=== PATIENT | male | born 1965 | race Two or more races ===

== ENCOUNTER 2020-04-10 13:24 | Outpatient (REF) | payer MEDICARE, MEDICAID, SELFPAY ==
--- NOTE | 2020-04-10 | US_ITS ---
EXAMINATION: US SOFT TISSUE OF THE NECK CLINICAL INFORMATION: Bilateral submandibular swelling. COMPARISON: Ultrasound soft tissue head/neck thyroid dated 12/10/2018. TECHNIQUE: Linear transducer grayscale and color Doppler examination of the bilateral parotid areas and areas of swelling. FINDINGS: Both parotid glands appear slightly enlarged. The right parotid gland measures 6.1 x 6.9 x 3.5 cm and the left parotid gland measures 6.7 x 6.5 x 3.4 cm, volume 77 mL. The parotid glands are normal in echotexture. No focal lesion is seen. No stone or periparotid fluid collection is seen. There are no enlarged adjacent periparotid lymph nodes. US/US soft tiss head and/or neck IMPRESSION: Enlarged bilateral parotid glands. No focal lesion is seen.
== END 2020-04-10 13:25 | disposition home or self-care (01) ==
LOC: HO.US 13:24
PROVIDERS: PCP Student in an Organized Health Care Education/Training Program; Visit Provider Nurse Practitioner Primary Care
DX: R59.0 Localized enlarged lymph nodes (principal); R60.9 Edema, unspecified
CPT/HCPCS: 76536

== ENCOUNTER 2020-11-14 14:15 | Emergency (ER) | payer MEDICARE, MEDICAID, SELFPAY ==
--- NOTE | 2020-11-14 | ECG_ITS ---
Test Reason : CHEST PAIN Blood Pressure : / mmHG Vent. 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
--- NOTE | ~2020-11-14 | XR_ITS ---
EXAMINATION: XR CHEST CLINICAL INFORMATION: Chest pain COMPARISON: November 30, 2018 TECHNIQUE: 2 views of the chest were obtained. FINDINGS: There is no evidence of acute parenchymal disease, pneumothorax, or pleural effusion. Heart normal size. No evidence of pulmonary edema. Aortic arch and descending thoracic aortic stent graft in place. XR/XR chest 2V IMPRESSION: No acute disease.
[2020-11-14 14:56] VITALS: BP 135/86; PULSE 69; RESP 18; TEMP 36.2; O2SAT 98; BMI 39.1
[2020-11-14 15:23] LABS: MANUAL DIFF FLAG NO
[2020-11-14 15:27] LABS: Basophils Percent Auto 0.1 % (0-2); Eosinophils Absolute Auto 0.1 X10*3/uL (0.0-0.4); Eosinophils Percent Auto 1.1 % (0-4); Hematocrit 43.8 % (42-52); Hemoglobin 14.7 g/dl (14.0-18.0); Imm Gran Abs Auto 0.05 X10*3/uL (0.00-0.03); Imm Gran Pct Auto 0.7 % (0.0-0.4); Lymphocytes Absolute Auto 1.8 X10*3/uL (1.2-4.9); Mean Corpuscular HGB Conc 33.6 g/dl (31.0-36.0); Mean Corpuscular Hemoglobin 29.5 pg (27.0-33.0); Monocytes Absolute Auto 0.5 X10*3/uL (0.1-1.2); Monocytes Percent Auto 6.5 % (2-11); Neutrophils Absolute Auto 4.7 X10*3/uL (2.0-8.3); Neutrophils Percent Auto 66.6 % (45-73); Platelet Count 178 X10*3/uL (160-400); Red Blood Count 4.98 X10*6/uL (4.60-5.80); Red Cell Distribution Width 12.7 % (11.0-16.0)
[2020-11-14 15:53] LABS: Anion Gap 11 (12-20); Blood Urea Nitrogen 11 mg/dL (9-16); Carbon Dioxide 27 mmol/L (22-29); Chloride 108 mmol/L (96-108); Creatinine Clr Calc Pharmacy 111.7; Estimated Glomerular Filt Rate > 60; Glucose Random 148 mg/dL (60-115); Potassium 4.4 mmol/L (3.3-5.1); Sodium 142 mmol/L (135-145)
[2020-11-14 16:01] LABS: Troponin-I High Sensitivity 9.9 ng/L (<3.5-35.0)
[2020-11-14] MEDS: Acetaminophen 325 MG TABLET 650 MG PO (17:31)
== END 2020-11-14 19:30 | disposition left against medical advice (07) ==
PROVIDERS: Emergency Provider Emergency Medicine; PCP Student in an Organized Health Care Education/Training Program
DX: R07.9 Chest pain, unspecified (principal)
CPT/HCPCS: 36415; 71046; 80048; 84484; 85025; 93005; 99283

== ENCOUNTER 2020-12-13 15:03 | Emergency (ER) | payer MEDICARE, MEDICAID, SELFPAY ==
--- NOTE | 2020-12-13 15:06 | ECG_ITS ---
Test Reason : CHEST PAIN Blood Pressure : / mmHG Vent. 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
[2020-12-13 15:12] VITALS: BP 138/91; PULSE 91; RESP 18; O2SAT 96; BMI 39.1
--- NOTE | 2020-12-13 16:07 | ED_ITS ---
HPI - Chest Pain General Chief Complaint: Chest Pain Stated Complaint: CHEST PAIN Time Seen by Provider: 12/13/20 16:07 Source: patient Mode of arrival: ambulatory Limitations: no limitations History of Present Illness HPI narrative: Patient history of coarctation of her status post surgical repair last stent placement was 1 and half year ago at that time cardiac catheterization was negative. Today patient was opening the gas tank at 14:00 smelled of gas suddenly noticed sharp pain in mid chest which lasted for 3 minutes no shortness of breath no cough no radiation of pain pain was sharp no diaphoresis no nausea no vomiting Related Data Allergies Allergy/AdvReac Type Severity Reaction Status Date / Time Penicillins Allergy Mild RASH Unverified 12/23/19 16:21 lisinopril Allergy Unknown Verified 10/07/18 00:00 penicillin V Allergy Unknown Verified 10/07/18 00:00 Review of Systems Review of Systems: Yes all other systems are reviewed and are negative [facility] Past Medical History Medical History Asthma Coarctation of aorta Diabetes HTN (hypertension) Surgical History Status post aortic coarctation stent placement Social History Social History Advance Directives: No Advance Directives Information Provided: No Physical Exam Vital Signs: Vital Signs: Last Vital Signs Temp 98.5 F 12/13/20 16:17 Pulse 70 12/13/20 17:09 Resp 16 12/13/20 17:09 BP 135/71 12/13/20 17:09 Pulse Ox 99 12/13/20 17:09 Body Mass Index 39.1 Appearance: Alert. Oriented X3. No acute distress. Eyes: No pallor or icterus ENT: Pharynx normal. Oral Mucosa moist Neck: Normal inspection. Neck supple. CVS: Normal heart rate and rhythm. Pulses normal. Respiratory: No respiratory distress. Equal air entry bilateral, no wheezing/rales/rhonchi Abdomen: Soft and nontender. Bowel sounds are present, no mass palpable, no CVA tenderness Skin: Skin warm and dry. Normal skin color. Normal skin turgor. Extremities: No lower extremity edema. No calf tenderness Neuro: Oriented X 3. MDM - Chest Pain MDM Narrative Medical decision making narrative: Patient has atypical chest pain 2 sets of cardiac enzymes negative for in delta change chest pain-free at this time had cardiac catheterization about 18 months ago was negative on baby aspirin advised patient to follow-up with PCP for further evaluation Lab Data Attestation: I reviewed the patient's lab results. Result diagrams: 12/13/20 16:28 12/13/20 16:28 Labs: Lab Results 12/13/20 12/13/20 12/13/20 Range/Units 16:28 16:28 16:28 WBC 9.4 (4.8-10.8) X10*3/uL RBC 5.47 (4.60-5.80) X10*6/uL Hgb 16.1 (14.0-18.0) g/dl Hct 48.4 (42-52) % MCV 88.5 (80-98) fL MCH 29.4 (27.0-33.0) pg MCHC 33.3 (31.0-36.0) g/dl RDW 12.8 (11.0-16.0) % Plt Count 226 D (160-400) X10*3/uL MPV 10.8 (9.4-12.4) fL Immature Gran % (Auto) 0.6 H (0.0-0.4) % Neut % (Auto) 66.5 (45-73) % Lymph % (Auto) 24.5 (20-40) % [place] % (Auto) 7.2 (2-11) % Eos % (Auto) 1.0 (0-4) % Baso % (Auto) 0.2 (0-2) % Lymph # (Auto) 2.3 (1.2-4.9) X10*3/uL [place] # (Auto) 0.7 (0.1-1.2) X10*3/uL Eos # (Auto) 0.1 (0.0-0.4) X10*3/uL Baso # (Auto) 0.0 (0.0-0.2) X10*3/uL Abs Immat Gran (auto) 0.06 H (0.00-0.03) X10*3/uL Absolute Neuts (auto) 6.2 (2.0-8.3) X10*3/uL Absolute Nucleated RBC 0.000 (0.0-0.012) X10*3/uL Nucleated RBC % (auto) 0.0 (0.0-0.2) /100WBC PT 10.4 (9.9-13.0) SEC INR 0.9 (0.9-1.1) Sodium 141 (135-145) mmol/L Potassium 4.2 (3.3-5.1) mmol/L Chloride 102 (96-108) mmol/L Carbon Dioxide 27 (22-29) mmol/L Anion Gap 16 (12-20) BUN 14 (9-16) mg/dL Creatinine 0.91 (0.5-1.4) mg/dL Estim Creat Clear Calc 101.9 Estimated GFR > 60 Random Glucose 119 H (60-115) mg/dL Calcium 9.9 (8.4-10.2) mg/dL Troponin I High Sens (<3.5-35.0) ng/L 12/13/20 12/13/20 Range/Units 16:28 18:59 WBC (4.8-10.8) X10*3/uL RBC (4.60-5.80) X10*6/uL Hgb (14.0-18.0) g/dl Hct (42-52) % MCV (80-98) fL MCH (27.0-33.0) pg MCHC (31.0-36.0) g/dl RDW (11.0-16.0) % Plt Count (160-400) X10*3/uL MPV (9.4-12.4) fL Immature Gran % (Auto) (0.0-0.4) % Neut % (Auto) (45-73) % Lymph % (Auto) (20-40) % [place] % (Auto) (2-11) % Eos % (Auto) (0-4) % Baso % (Auto) (0-2) % Lymph # (Auto) (1.2-4.9) X10*3/uL [place] # (Auto) (0.1-1.2) X10*3/uL Eos # (Auto) (0.0-0.4) X10*3/uL Baso # (Auto) (0.0-0.2) X10*3/uL Abs Immat Gran (auto) (0.00-0.03) X10*3/uL Absolute Neuts (auto) (2.0-8.3) X10*3/uL Absolute Nucleated RBC (0.0-0.012) X10*3/uL Nucleated RBC % (auto) (0.0-0.2) /100WBC PT (9.9-13.0) SEC INR (0.9-1.1) Sodium (135-145) mmol/L Potassium (3.3-5.1) mmol/L Chloride (96-108) mmol/L Carbon Dioxide (22-29) mmol/L Anion Gap (12-20) BUN (9-16) mg/dL Creatinine (0.5-1.4) mg/dL Estim Creat Clear Calc Estimated GFR Random Glucose (60-115) mg/dL Calcium (8.4-10.2) mg/dL Troponin I High Sens 10.4 4.7 D (<3.5-35.0) ng/L ECG Data ECG #1: Attestation: I personally reviewed and interpreted this ECG as follows: Interpretation: Numbness sinus rhythm heart rate 89 beats per minute left anterior fascicular block normal intervals normal axis no acute ST T wave changes no acute ischemia Discharge Plan Discharge Clinical Impression: Chest pain Qualifiers: Chest pain type: precordial pain Qualified Code(s): R07.2 - Precordial pain Patient Disposition: Home, Self-Care Instructions: Chest Pain (ED) Additional Instructions: Follow-up with your PCP for further evaluation including stress test Take baby aspirin daily
[2020-12-13 16:17] VITALS: BP 120/79; PULSE 83; RESP 17; TEMP 36.9; O2SAT 97
[2020-12-13 16:35] LABS: MANUAL DIFF FLAG NO
[2020-12-13 16:37] LABS: Basophils Percent Auto 0.2 % (0-2); Eosinophils Absolute Auto 0.1 X10*3/uL (0.0-0.4); Hematocrit 48.4 % (42-52); Hemoglobin 16.1 g/dl (14.0-18.0); Imm Gran Abs Auto 0.06 X10*3/uL (0.00-0.03); Imm Gran Pct Auto 0.6 % (0.0-0.4); Lymphocytes Absolute Auto 2.3 X10*3/uL (1.2-4.9); Lymphocytes Percent Auto 24.5 % (20-40); Mean Corpuscular HGB Conc 33.3 g/dl (31.0-36.0); Mean Corpuscular Hemoglobin 29.4 pg (27.0-33.0); Mean Corpuscular Volume 88.5 fL (80-98); Mean Platelet Volume 10.8 fL (9.4-12.4); Monocytes Absolute Auto 0.7 X10*3/uL (0.1-1.2); Monocytes Percent Auto 7.2 % (2-11); Neutrophils Absolute Auto 6.2 X10*3/uL (2.0-8.3); Neutrophils Percent Auto 66.5 % (45-73); Platelet Count 226 X10*3/uL (160-400); Red Blood Count 5.47 X10*6/uL (4.60-5.80); Red Cell Distribution Width 12.8 % (11.0-16.0); White Blood Count 9.4 X10*3/uL (4.8-10.8)
[2020-12-13 16:42] LABS: INTERNATIONAL NORM RATIO 0.9 (0.9-1.1); Prothrombin Time 10.4 SEC (9.9-13.0)
[2020-12-13 16:49] LABS: Anion Gap 16 (12-20); Blood Urea Nitrogen 14 mg/dL (9-16); Calcium 9.9 mg/dL (8.4-10.2); Carbon Dioxide 27 mmol/L (22-29); Chloride 102 mmol/L (96-108); Creatinine Clr Calc Pharmacy 101.9; Estimated Glomerular Filt Rate > 60; Glucose Random 119 mg/dL (60-115); Potassium 4.2 mmol/L (3.3-5.1); Sodium 141 mmol/L (135-145)
[2020-12-13 16:54] LABS: Troponin-I High Sensitivity 10.4 ng/L (<3.5-35.0)
[2020-12-13 17:09] VITALS: BP 135/71; PULSE 70; RESP 16; O2SAT 99
--- NOTE | 2020-12-13 17:22 | PC.NURSE ---
Patient in NAD, breathing even and unlabored. Denies pain at this time. Pending provider plan.
[2020-12-13 19:28] LABS: Troponin-I High Sensitivity 4.7 ng/L (<3.5-35.0)
== END 2020-12-13 20:03 | disposition home or self-care (01) ==
PROVIDERS: Emergency Provider Internal Medicine; PCP Student in an Organized Health Care Education/Training Program
DX: R07.2 Precordial pain (principal); I10 Essential (primary) hypertension; Z79.899 Other long term (current) drug therapy
CPT/HCPCS: 36415; 80048; 84484; 85025; 85610; 93005; 99283; 99284

== ENCOUNTER 2021-01-30 06:47 | Outpatient (REF) | payer MEDICARE, MEDICAID, SELFPAY ==
[2021-01-30 07:48] LABS: Estimated Average Glucose 192 mg/dL; Hemoglobin A1c % 8.3 %
[2021-01-30 07:51] LABS: Alanine Aminotransferase 76 U/L (0-40); Albumin Level 4.6 g/dL (3.5-5.0); Alkaline Phosphatase 86 U/L (39-117); Anion Gap 13 (12-20); Aspartate Amino Transferase 45 U/L (5-37); Bilirubin Direct 0.4 mg/dL (0.0-0.5); Bilirubin Total 1.1 mg/dL (0.0-1.0); Blood Urea Nitrogen 12 mg/dL (9-16); Calcium 9.8 mg/dL (8.4-10.2); Carbon Dioxide 30 mmol/L (22-29); Chloride 102 mmol/L (96-108); Cholesterol 144 mg/dL; Estimated Glomerular Filt Rate > 60; Glucose Random 178 mg/dL (60-115); HDL Cholesterol 38 mg/dL; LDL Cholesterol Calculated 86 mg/dl; Potassium 4.2 mmol/L (3.3-5.1); Sodium 141 mmol/L (135-145); Total Protein 7.2 g/dL (6.5-8.0); Triglycerides 103 mg/dL
[2021-02-03 16:52] LABS: Testosterone, Free 57.3 pg/mL (35.0-155.0); Testosterone, Total 458 ng/dL (250-1100)
== END 2021-01-30 06:48 | disposition home or self-care (01) ==
LOC: HO.LAB 06:47
PROVIDERS: PCP Student in an Organized Health Care Education/Training Program; Visit Provider Student in an Organized Health Care Education/Training Program
DX: E11.9 Type 2 diabetes mellitus without complications (principal); I10 Essential (primary) hypertension
CPT/HCPCS: 36415; 80048; 80061; 80076; 83036; 84402; 84403

== ENCOUNTER 2021-06-05 08:41 | Outpatient (REF) | payer MEDICARE, MEDICAID, SELFPAY ==
[2021-06-05 10:02] LABS: Anion Gap 13 (12-20); Blood Urea Nitrogen 13 mg/dL (9-16); Calcium 9.9 mg/dL (8.4-10.2); Carbon Dioxide 32 mmol/L (22-29); Chloride 98 mmol/L (96-108); Estimated Glomerular Filt Rate > 60; Glucose Random 343 mg/dL (60-115); Potassium 4.8 mmol/L (3.3-5.1); Sodium 138 mmol/L (135-145)
== END 2021-06-05 08:42 | disposition home or self-care (01) ==
LOC: HO.LAB 08:41
PROVIDERS: PCP Student in an Organized Health Care Education/Training Program; Visit Provider Internal Medicine Cardiovascular Disease
DX: I10 Essential (primary) hypertension (principal); E78.5 Hyperlipidemia, unspecified
CPT/HCPCS: 36415; 80048

== ENCOUNTER 2022-01-25 15:08 | Outpatient (REF) | payer MEDICARE, MEDICAID, SELFPAY ==
[2022-01-25 15:49] LABS: COVID-19 Test Negative (Negative); IDNOW Serial# 16C4AD1C
== END 2022-01-25 15:09 | disposition home or self-care (01) ==
LOC: HO.LAB 15:08
PROVIDERS: Visit Provider Internal Medicine
DX: Z20.822 Contact with and (suspected) exposure to COVID-19 (principal)
CPT/HCPCS: 87635; C9803

== ENCOUNTER 2022-05-15 11:15 | Emergency (ER) | payer MEDICARE, MEDICAID, SELFPAY ==
--- NOTE | ~2022-05-15 | CT_ITS ---
EXAMINATION: CT HEAD WITHOUT CONTRAST CLINICAL INFORMATION: Dizziness, blurred vision for 3 days. COMPARISON: Head CT scan dated 10/01/2019. TECHNIQUE: Contiguous axial imaging was performed from the skull base to vertex without intravenous administration of contrast. Coronal and sagittal reformatted images were obtained. This CT examination was performed using dose optimization techniques as appropriate, variously including the following: *Automated exposure control *Adjustment of mA and/or kV according to patient size (this includes techniques or standardized protocols for targeted exams where dose is matched to indication/reason for exam; i.e. extremities or head) *Use of iterative reconstruction technique DLP: 819 mGy-cm FINDINGS: The cortical sulci are normal. The lateral ventricles are symmetrical. The third and fourth ventricles are in their normal midline position. The basilar and prepontine cisterns are unremarkable. There is no acute intra or extracerebral abnormality. There is no mass effect or midline shift. Sections through the bony calvarium are unremarkable. The paranasal sinuses are clear. The bony orbits and orbital contents are unremarkable. CT/CT head/brain wo IV con IMPRESSION: No acute intracranial pathology.
--- NOTE | 2022-05-15 11:18 | ED_ITS ---
HPI - Dizziness General Chief Complaint: Dizziness <Lillie Corrales NP - Last Filed: 05/15/22 11:23> Stated Complaint: dizzy, headache, tunnel vision <Lillie Corrales NP - Last Filed: 05/15/22 11:23> Time Seen by Provider: 05/15/22 12:37 <Lillie Corrales NP - Last Filed: 05/15/22 11:23> Source: patient <SARA Vidales - Last Filed: 05/15/22 17:55> Mode of arrival: ambulatory <SARA Vidales Last Filed: 05/15/22 17:55> History of Present Illness HPI Narrative: 56-year-old male with a past medical history of asthma, diabetes, hypertension, presenting to the ED complaining of intermittent room spinning dizziness x3 days worsened by head movement and position changes. Reports associated headache and blurry vision when dizziness is present. States worse when turns his head to the left. Admits to similar symptoms in the past. Denies known head trauma, injury/fall, weakness, nausea/vomiting, CP/SOB, paresthesias <SARA Vidales - Last Filed: 05/15/22 17:55> MD elicited complaint: dizziness and vertigo <SARA Vidales Last Filed: 05/15/22 17:55> Onset (ago): day(s) <SARA Vidales Last Filed: 05/15/22 17:55> Related Data Home Medications: Previous Rx's Medication Instructions Recorded meclizine 25 mg tablet 25 mg PO TID PRN dizziness #14 tabs 05/15/22 <Lillie Corrales NP - Last Filed: 05/15/22 11:23> Allergies/Adverse Reactions: Allergies Allergy/AdvReac Type Severity Reaction Status Date / Time Penicillins Allergy Mild RASH Unverified 12/23/19 16:21 lisinopril Allergy Unknown Verified 10/07/18 00:00 penicillin V Allergy Unknown Verified 10/07/18 00:00 <Lillie Corrales NP - Last Filed: 05/15/22 11:23> Review of Systems Review of Systems: Constitutional: No Fever, No Chills, No Fatigue, No Malaise ENT/Mouth: No Ear Pain, No Nasal Congestion, No sore throat, No Rhinorrhea, No Swallowing Difficulty Eyes: No Eye Pain, No Swelling, No Redness, No Discharge, + Vision Changes Cardiovascular: No Chest Pain, No SOB, No Edema, No Palpitations Respiratory: No Cough, No Sputum, No Dyspnea Gastrointestinal: No Nausea, No Vomiting, No Diarrhea, No Constipation, No Abdominal pain Genitourinary: No Dysuria, No Urinary Frequency, No Hematuria, No Urinary Incontinence/retention, No Flank Pain Musculoskeletal: No joint pain, No Myalgias, No Joint Swelling Skin: No Skin Lesions, No rash Neuro: No Weakness, No Numbness, No Paresthesias, No Loss of Consciousness, + Dizziness, + Headache <SARA Vidales - Last Filed: 05/15/22 17:55> Yes all other systems are reviewed and are negative <SARA Vidales - Last Filed: 05/15/22 17:55> Constitutional: Constitutional: Reports as per HPI <SARA Vidales - Last Filed: 05/15/22 17:55> Neurologic: Denies Abnormal speech present <SARA Vidales - Last Filed: 05/15/22 17:55> [facility] Past Medical History Attestation statement: The following information was validated with the patient. <SARA Vidales - Last Filed: 05/15/22 17:55> Medical History: Medical History Asthma Coarctation of aorta Diabetes HTN (hypertension) <Lillie Corrales NP - Last Filed: 05/15/22 11:23> Surgical History: Surgical History Status post aortic coarctation stent placement <Lillie Corrales NP - Last Filed: 05/15/22 11:23> Social History Social History: Social History Alcohol intake: current Alcohol intake frequency: holidays/special occasions only Smoked in Last 30 Days: No Use of substances other than those prescribed or required for medical reasons: Yes Substance Use Type: Marijuana Advance Directives: No Advance Directives Information Provided: Yes <Lillie Corrales NP - Last Filed: 05/15/22 11:23> Physical Exam Vital Signs: Vital Signs: Last Vital Signs Temp 98 F 05/15/22 11:19 Pulse 89 05/15/22 14:10 Resp 19 05/15/22 11:19 BP 135/84 05/15/22 14:10 Pulse Ox 98 05/15/22 14:10 O2 Del Method 05/15/22 14:10 BMI result Body Mass Index 38.5 <Lillie Corrales NP - Last Filed: 05/15/22 11:23> Vital Signs: Last Vital Signs Temp 98 F 05/15/22 11:19 Pulse 89 05/15/22 14:10 Resp 05/15/22 11:19 BP 135/84 05/15/22 14:10 Pulse Ox 98 05/15/22 14:10 O2 Del Method 05/15/22 14:10 BMI result Body Mass Index 38.5 <SARA Vidales - Last Filed: 05/15/22 17:55> Const: General: cooperative, healthy appearing and no acute distress <SARA Vidales - Last Filed: 05/15/22 17:55> Orientation/consciousness: patient oriented x3 <SARA Vidales - Last Filed: 05/15/22 17:55> Limitations: no limitations <SARA Vidales - Last Filed: 05/15/22 17:55> HEENT: Head: Yes normal to inspection and Yes atraumatic <SARA Vidales - Last Filed: 05/15/22 17:55> Ears: hearing grossly normal bilaterally, external ears normal and TM's normal bilaterally <SARA Vidales - Last Filed: 05/15/22 17:55> General nose exam: Normal external nose present <SARA Vidales - Last Filed: 05/15/22 17:55> Face and sinus: Yes normal facial exam <SARA Vidales - Last Filed: 05/15/22 17:55> Mouth: Normal oral and palatal mucosa present <SARA Vidales - Last Filed: 05/15/22 17:55> Throat: Yes posterior oropharynx normal, Yes tonsils normal, Yes uvula midline, No peritonsillar mass, No uvula laterally displaced and No uvular edema <SARA Vidales - Last Filed: 05/15/22 17:55> Eyes: General: appearance normal, both eyes and all related structures <SARA Vidales - Last Filed: 05/15/22 17:55> Pupils: Equal, round and reactive pupils present <SARA Vidales - Last Filed: 05/15/22 17:55> EOM: EOMs intact bilaterally and Nystagmus present <Kathy Shell PA - Last Filed: 05/15/22 17:55> Neck: Neck: Yes normal visual inspection and Yes no meningeal signs <SARA Vidales - Last Filed: 05/15/22 17:55> Resp: Effort & Inspection: normal respiratory effort and no respiratory distress <SARA Vidales - Last Filed: 05/15/22 17:55> Auscultation: clear to auscultation bilaterally, no crackles, no rhonchi and no wheezes <Kathy Shell PA - Last Filed: 05/15/22 17:55> Cardio: Rate: regular rate <SARA Vidales - Last Filed: 05/15/22 17:55> Heart sounds: S1 normal heart sound present and S2 normal heart sound present <SARA Vidales - Last Filed: 05/15/22 17:55> GI: Inspection: Yes normal to inspection <SARA Vidales - Last Filed: 05/15/22 17:55> Palpation (GI): Soft to palpation, nontender, no guarding and not rigid <Kathy Shell PA - Last Filed: 05/15/22 17:55> Skin: Rashes: no rashes <SARA Vidales - Last Filed: 05/15/22 17:55> Wounds: no wounds <SARA Vidales - Last Filed: 05/15/22 17:55> Neuro: General: patient oriented x3, gait normal, tone normal, moves all extremities, no meningeal signs, no focal motor deficits and CN's II-XI intact bilaterally <Kathy Shell PA - Last Filed: 05/15/22 17:55> Cranial nerves: Yes Equal, round and reactive pupils present and Yes Nystagmus present horizontal fast component to the left <Kathy Shell PA - Last Filed: 05/15/22 17:55> Cognition (Neuro): normal cognition <Kathy Shell PA - Last Filed: 05/15/22 17:55> Speech: No Abnormal speech present <Kathy Shell PA - Last Filed: 05/15/22 17:55> Gait exam (Neuro): Normal gait present <Kathy Shell PA - Last Filed: 05/15/22 17:55> Motor exam (neuro): 5/5 motor strength present throughout and Pronator motor function not present <Kathy Shell PA - Last Filed: 05/15/22 17:55> Coordination: [id number] test normal <Kathy Shell PA - Last Filed: 05/15/22 17:55> Romberg Test: Negative <Kathy Shell PA - Last Filed: 05/15/22 17:55> Extrem: General: Yes normal to inspection <Kathy Shell PA - Last Filed: 05/15/22 17:55> Course Course Course Narrative: This is rapid medical exam. Deferred additional HPI, ROS, PE to primary provider. 56 yo male with history of DM, asthma, HTN, HLD, coarcation of aorta s/p repair, CAD with stents here with blurry vision, headache, dizziness x 3 days. Will obtain labs, EKG, COVID screen, CT head. VSS <Lillie Corrales NP - Last Filed: 05/15/22 11:23> This is rapid medical exam. Deferred additional HPI, ROS, PE to primary provider. 56 yo male with history of DM, asthma, HTN, HLD, coarcation of aorta s/p repair, CAD with stents here with blurry vision, headache, dizziness x 3 days. Will obtain labs, EKG, COVID screen, CT head. VSS -1424--labs unremarkable. Troponin negative. -head CT unremarkable >> on re-evaluation patient reports symptomatic improvement, sitting up in stretcher. Feels safe for discharge home at this time Results discussed with patient including worrisome signs and symptoms and strict return precautions, and when to return to the emergency department. They verbalized understanding and feel safe for discharge at this time. <SARA Vidales - Last Filed: 05/15/22 17:55> Medications Administered Discontinued Medications Generic Name Dose Route Start Last Admin Trade Name Freq PRN Reason Stop Dose Admin Diphenhydramine HCl 12.5 mg 05/15/22 13:00 05/15/22 13:55 Diphenhydramine Hcl 25 Mg Capsule PO 05/15/22 13:01 12.5 mg ONCE ONE Administration Sodium Chloride 1,000 mls @ 999 mls/hr 05/15/22 13:00 05/15/22 14:56 Ns IV 05/15/22 14:00 Infused .Q1H1M BARBARA Infusion Meclizine HCl 25 mg 05/15/22 12:59 05/15/22 13:55 Meclizine Hcl 25 Mg Tablet PO 05/15/22 13:00 25 mg ONCE ONE Administration Ondansetron HCl 4 mg 05/15/22 12:59 05/15/22 13:56 Ondansetron Odt 4 Mg Tab.Rapdis TRANSLINGU 05/15/22 13:00 4 mg ONCE ONE Administration <Lillie Corrales NP - Last Filed: 05/15/22 11:23> Medications Administered Discontinued Medications Generic Name Dose Route Start Last Admin Trade Name Freq PRN Reason Stop Dose Admin Diphenhydramine HCl 12.5 mg 05/15/22 13:00 05/15/22 13:55 Diphenhydramine Hcl 25 Mg Capsule PO 05/15/22 13:01 12.5 mg ONCE ONE Administration Sodium Chloride 1,000 mls @ 999 mls/hr 05/15/22 13:00 05/15/22 14:56 Ns IV 05/15/22 14:00 Infused .Q1H1M BARBARA Infusion Meclizine HCl 25 mg 05/15/22 12:59 05/15/22 13:55 Meclizine Hcl 25 Mg Tablet PO 05/15/22 13:00 25 mg ONCE ONE Administration Ondansetron HCl 4 mg 05/15/22 12:59 05/15/22 13:56 Ondansetron Odt 4 Mg Tab.Rapdis BRANDY 05/15/22 13:00 4 mg ONCE ONE Administration <SARA Vidales - Last Filed: 05/15/22 17:55> Medical Decision Making Medical Decision Making MDM Narrative: 56-year-old male with a past medical history of asthma, diabetes, hypertension, presenting to the ED complaining of intermittent room spinning dizziness x3 days worsened by head movement and position changes. On exam vital signs stable, NAD, nontoxic appearing, dizziness elicited on position changes. Left-sided fatigable nystagmus noted, no focal neuro deficits, no ataxia, ambulating with steady gait. Concern for BPPV. Lower suspicion for ICH/TIA/CVA or dissection Plan: EKG, labs, head CT, symptomatic tx, re-evaluate Please refer to course for remaining clinical decision making, interpretation of labs/imaging results, and discussions with consultants and/or family members. <SARA Vidales - Last Filed: 05/15/22 17:55> Differential Diagnosis Differential Diagnoses: The differential diagnosis associated with the presentation includes <SARA Vidales - Last Filed: 05/15/22 17:55> as above <SARA Vidales - Last Filed: 05/15/22 17:55> Lab Data MDM Lab Attestation statement: I reviewed the patient's lab results. <SARA Vidales - Last Filed: 05/15/22 17:55> Result Diagrams: 05/15/22 12:01 05/15/22 12:01 <Lillie Corrales NP - Last Filed: 05/15/22 11:23> Labs: Lab Results 05/15/22 05/15/22 05/15/22 Range/Units 12:01 12:01 12:01 WBC 8.0 (4.8-10.8) X10*3/uL RBC 5.59 (4.60-5.80) X10*6/uL Hgb 16.2 (14.0-18.0) g/dl Hct 48.8 (42.0-52.0) % MCV 87.3 (80.0-98.0) fL MCH 29.0 (27.0-33.0) pg MCHC 33.2 (31.0-36.0) g/dl RDW 13.0 (11.0-16.0) % Plt Count 202 (160-400) X10*3/uL MPV 11.1 (9.4-12.4) fL Immature Gran % (Auto) 0.6 H (0.0-0.4) % Neut % (Auto) 68.0 (45-73) % Lymph % (Auto) 23.6 (20-40) % [place] % (Auto) 6.5 (2-11) % Eos % (Auto) 1.0 (0-4) % Baso % (Auto) 0.3 (0-2) % Lymph # (Auto) 1.9 (1.2-4.9) X10*3/uL [place] # (Auto) 0.5 (0.1-1.2) X10*3/uL Eos # (Auto) 0.1 (0.0-0.4) X10*3/uL Baso # (Auto) 0.0 (0.0-0.2) X10*3/uL Abs Immat Gran (auto) 0.05 H (0.00-0.03) X10*3/uL Absolute Neuts (auto) 5.4 (2.0-8.3) x10*3/uL Absolute Nucleated RBC 0.000 (0.0-0.012) X10*3/uL Nucleated RBC % (auto) 0.0 (0.0-0.2) /100WBC Sodium 143 (135-145) mmol/L Potassium 4.5 (3.3-5.1) mmol/L Chloride 103 (96-108) mmol/L Carbon Dioxide 27 (22-29) mmol/L Anion Gap 18 (12-20) BUN 14 (9-16) mg/dL Creatinine 0.90 (0.5-1.4) mg/dL Estim Creat Clear Calc 104.5 Estimated GFR > 60 Random Glucose 183 H (60-115) mg/dL Calcium 9.8 (8.4-10.2) mg/dL Magnesium 2.0 (1.6-2.6) mg/dL Total Bilirubin 0.5 (0.0-1.0) mg/dL Direct Bilirubin < 0.2 (0.0-0.5) mg/dL AST 50 H (5-37) U/L ALT 59 H (0-40) U/L Alkaline Phosphatase 109 (39-117) U/L Troponin I High Sens 3.5 (<3.5-35.0) ng/L Total Protein 6.9 (6.5-8.0) g/dL Albumin 4.4 (3.5-5.0) g/dL COVID-19 (DARLYN) (Negative) COVID-19 Clin Com 05/15/22 Range/Units 12:01 WBC (4.8-10.8) X10*3/uL RBC (4.60-5.80) X10*6/uL Hgb (14.0-18.0) g/dl Hct (42.0-52.0) % MCV (80.0-98.0) fL MCH (27.0-33.0) pg MCHC (31.0-36.0) g/dl RDW (11.0-16.0) % Plt Count (160-400) X10*3/uL MPV (9.4-12.4) fL Immature Gran % (Auto) (0.0-0.4) % Neut % (Auto) (45-73) % Lymph % (Auto) (20-40) % [place] % (Auto) (2-11) % Eos % (Auto) (0-4) % Baso % (Auto) (0-2) % Lymph # (Auto) (1.2-4.9) X10*3/uL [place] # (Auto) (0.1-1.2) X10*3/uL Eos # (Auto) (0.0-0.4) X10*3/uL Baso # (Auto) (0.0-0.2) X10*3/uL Abs Immat Gran (auto) (0.00-0.03) X10*3/uL Absolute Neuts (auto) (2.0-8.3) x10*3/uL Absolute Nucleated RBC (0.0-0.012) X10*3/uL Nucleated RBC % (auto) (0.0-0.2) /100WBC Sodium (135-145) mmol/L Potassium (3.3-5.1) mmol/L Chloride (96-108) mmol/L Carbon Dioxide (22-29) mmol/L Anion Gap (12-20) BUN (9-16) mg/dL Creatinine (0.5-1.4) mg/dL Estim Creat Clear Calc Estimated GFR Random Glucose (60-115) mg/dL Calcium (8.4-10.2) mg/dL Magnesium (1.6-2.6) mg/dL Total Bilirubin (0.0-1.0) mg/dL Direct Bilirubin (0.0-0.5) mg/dL AST (5-37) U/L ALT (0-40) U/L Alkaline Phosphatase (39-117) U/L Troponin I High Sens (<3.5-35.0) ng/L Total Protein (6.5-8.0) g/dL Albumin (3.5-5.0) g/dL COVID-19 (DARLYN) Negative (Negative) COVID-19 Clin Com See Note <Lillie Corrales NP - Last Filed: 05/15/22 11:23> Lab Results 05/15/22 05/15/22 05/15/22 Range/Units 12:01 12:01 12:01 WBC 8.0 (4.8-10.8) X10*3/uL RBC 5.59 (4.60-5.80) X10*6/uL Hgb 16.2 (14.0-18.0) g/dl Hct 48.8 (42.0-52.0) % MCV 87.3 (80.0-98.0) fL MCH 29.0 (27.0-33.0) pg MCHC 33.2 (31.0-36.0) g/dl RDW 13.0 (11.0-16.0) % Plt Count 202 (160-400) X10*3/uL MPV 11.1 (9.4-12.4) fL Immature Gran % (Auto) 0.6 H (0.0-0.4) % Neut % (Auto) 68.0 (45-73) % Lymph % (Auto) 23.6 (20-40) % [place] % (Auto) 6.5 (2-11) % Eos % (Auto) 1.0 (0-4) % Baso % (Auto) 0.3 (0-2) % Lymph # (Auto) 1.9 (1.2-4.9) X10*3/uL [place] # (Auto) 0.5 (0.1-1.2) X10*3/uL Eos # (Auto) 0.1 (0.0-0.4) X10*3/uL Baso # (Auto) 0.0 (0.0-0.2) X10*3/uL Abs Immat Gran (auto) 0.05 H (0.00-0.03) X10*3/uL Absolute Neuts (auto) 5.4 (2.0-8.3) x10*3/uL Absolute Nucleated RBC 0.000 (0.0-0.012) X10*3/uL Nucleated RBC % (auto) 0.0 (0.0-0.2) /100WBC Sodium 143 (135-145) mmol/L Potassium 4.5 (3.3-5.1) mmol/L Chloride 103 (96-108) mmol/L Carbon Dioxide 27 (22-29) mmol/L Anion Gap 18 (12-20) BUN 14 (9-16) mg/dL Creatinine 0.90 (0.5-1.4) mg/dL Estim Creat Clear Calc 104.5 Estimated GFR > 60 Random Glucose 183 H (60-115) mg/dL Calcium 9.8 (8.4-10.2) mg/dL Magnesium 2.0 (1.6-2.6) mg/dL Total Bilirubin 0.5 (0.0-1.0) mg/dL Direct Bilirubin < 0.2 (0.0-0.5) mg/dL AST 50 H (5-37) U/L ALT 59 H (0-40) U/L Alkaline Phosphatase 109 (39-117) U/L Troponin I High Sens 3.5 (<3.5-35.0) ng/L Total Protein 6.9 (6.5-8.0) g/dL Albumin 4.4 (3.5-5.0) g/dL COVID-19 (DARLYN) (Negative) COVID-19 Clin Com 05/15/22 Range/Units 12:01 WBC (4.8-10.8) X10*3/uL RBC (4.60-5.80) X10*6/uL Hgb (14.0-18.0) g/dl Hct (42.0-52.0) % MCV (80.0-98.0) fL MCH (27.0-33.0) pg MCHC (31.0-36.0) g/dl RDW (11.0-16.0) % Plt Count (160-400) X10*3/uL MPV (9.4-12.4) fL Immature Gran % (Auto) (0.0-0.4) % Neut % (Auto) (45-73) % Lymph % (Auto) (20-40) % [place] % (Auto) (2-11) % Eos % (Auto) (0-4) % Baso % (Auto) (0-2) % Lymph # (Auto) (1.2-4.9) X10*3/uL [place] # (Auto) (0.1-1.2) X10*3/uL Eos # (Auto) (0.0-0.4) X10*3/uL Baso # (Auto) (0.0-0.2) X10*3/uL Abs Immat Gran (auto) (0.00-0.03) X10*3/uL Absolute Neuts (auto) (2.0-8.3) x10*3/uL Absolute Nucleated RBC (0.0-0.012) X10*3/uL Nucleated RBC % (auto) (0.0-0.2) /100WBC Sodium (135-145) mmol/L Potassium (3.3-5.1) mmol/L Chloride (96-108) mmol/L Carbon Dioxide (22-29) mmol/L Anion Gap (12-20) BUN (9-16) mg/dL Creatinine (0.5-1.4) mg/dL Estim Creat Clear Calc Estimated GFR Random Glucose (60-115) mg/dL Calcium (8.4-10.2) mg/dL Magnesium (1.6-2.6) mg/dL Total Bilirubin (0.0-1.0) mg/dL Direct Bilirubin (0.0-0.5) mg/dL AST (5-37) U/L ALT (0-40) U/L Alkaline Phosphatase (39-117) U/L Troponin I High Sens (<3.5-35.0) ng/L Total Protein (6.5-8.0) g/dL Albumin (3.5-5.0) g/dL COVID-19 (DARLYN) Negative (Negative) COVID-19 Clin Com See Note <SARA Vidales - Last Filed: 05/15/22 17:55> Independent Interpretation I performed an independent interpretation of an: EKG <SARA Vidales - Last Filed: 05/15/22 17:55> Interpretation: EKG sinus rhythm with first-degree AV block at a rate of 78. QRS 104. QTC 412. No STEMI. No significant change when compared to prior <SARA Vidales - Last Filed: 05/15/22 17:55> Radiology Impression Discussion of test interpretation with radiology: I have reviewed the radiologist's reading. <SARA Vidales - Last Filed: 05/15/22 17:55> External Record Review External record reviewed: Outpatient record and Prior outpatient labs <SARA Vidales - Last Filed: 05/15/22 17:55> Discharge Plan Discharge Clinical Impression: Benign paroxysmal positional vertigo <Lillie Corrales NP - Last Filed: 05/15/22 11:23> Patient Disposition: Home, Self-Care <Lillie Corrales NP - Last Filed: 05/15/22 11:23> Instructions: Benign Paroxysmal Positional Vertigo (ED) <Lillie Corrales NP - Last Filed: 05/15/22 11:23> Additional Instructions: Your blood work and head CT were reassuring. Meclizine will help with dizziness, take as needed. Please follow-up with your doctor as well as physical therapy and ENT as needed If symptoms persist or worsen, dizziness becomes constant, constant or worsening headache, vision change or loss return to the emergency department <Lillie Corrales NP - Last Filed: 05/15/22 11:23> Prescriptions: New meclizine 25 mg tablet 25 mg PO TID PRN (Reason: dizziness) Qty: 14 0RF <Lillie Corrales NP - Last Filed: 05/15/22 11:23> Referrals: Physical Therapy - C [Outside] [facility] [Physician] - Celia Torres MD [Primary Care Provider] - <Lillie Corrales NP - Last Filed: 05/15/22 11:23> Interventions: ED Discharge Assessment Last Done: 05/15/22 15:02 <Lillie Corrales NP - Last Filed: 05/15/22 11:23> Discharge Date/Time: 05/15/22 15:09 <Lillie Corrales NP - Last Filed: 05/15/22 11:23>
[2022-05-15 11:19] VITALS: BP 166/86; PULSE 83; RESP 19; TEMP 36.6; O2SAT 98; BMI 38.5
--- NOTE | 2022-05-15 11:20 | ECG_ITS ---
Test Reason : dissiness Blood Pressure : / mmHG Vent. 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
[2022-05-15 12:05] LABS: MANUAL DIFF FLAG NO
[2022-05-15 12:06] VITALS: BP 134/77; BP 137/73; PULSE 74; PULSE 90
[2022-05-15 12:08] VITALS: BP 131/77; PULSE 89
[2022-05-15 12:10] LABS: Basophils Percent Auto 0.3 % (0-2); Eosinophils Absolute Auto 0.1 X10*3/uL (0.0-0.4); Hematocrit 48.8 % (42.0-52.0); Hemoglobin 16.2 g/dl (14.0-18.0); Imm Gran Abs Auto 0.05 X10*3/uL (0.00-0.03); Imm Gran Pct Auto 0.6 % (0.0-0.4); Lymphocytes Absolute Auto 1.9 X10*3/uL (1.2-4.9); Lymphocytes Percent Auto 23.6 % (20-40); Mean Corpuscular HGB Conc 33.2 g/dl (31.0-36.0); Mean Corpuscular Volume 87.3 fL (80.0-98.0); Mean Platelet Volume 11.1 fL (9.4-12.4); Monocytes Absolute Auto 0.5 X10*3/uL (0.1-1.2); Monocytes Percent Auto 6.5 % (2-11); Neutrophils Absolute Auto 5.4 x10*3/uL (2.0-8.3); Platelet Count 202 X10*3/uL (160-400); Red Blood Count 5.59 X10*6/uL (4.60-5.80)
[2022-05-15 12:22] LABS: Alanine Aminotransferase 59 U/L (0-40); Albumin Level 4.4 g/dL (3.5-5.0); Alkaline Phosphatase 109 U/L (39-117); Anion Gap 18 (12-20); Aspartate Amino Transferase 50 U/L (5-37); Bilirubin Direct < 0.2 mg/dL (0.0-0.5); Blood Urea Nitrogen 14 mg/dL (9-16); Calcium 9.8 mg/dL (8.4-10.2); Carbon Dioxide 27 mmol/L (22-29); Chloride 103 mmol/L (96-108); Creatinine Clr Calc Pharmacy 104.5; Estimated Glomerular Filt Rate > 60; Glucose Random 183 mg/dL (60-115); Potassium 4.5 mmol/L (3.3-5.1); Sodium 143 mmol/L (135-145); Total Protein 6.9 g/dL (6.5-8.0)
[2022-05-15 12:23] LABS: Bilirubin Total 0.5 mg/dL (0.0-1.0)
[2022-05-15 12:25] LABS: COVID-19 Test Negative (Negative); IDNOW Serial# 16C4AD1C
[2022-05-15 12:29] LABS: Troponin-I High Sensitivity 3.5 ng/L (<3.5-35.0)
[2022-05-15] MEDS: diphenhydrAMINE HCL 25 MG CAPSULE 12.5 MG PO (13:55)
[2022-05-15] MEDS: Meclizine HCl 25 MG TABLET PO (13:55)
[2022-05-15] MEDS: 0.9 % Sodium Chloride 1,000 ML 999 ML IV (13:56)
[2022-05-15] MEDS: Ondansetron ODT 4 MG TAB.RAPDIS TRANSLINGU (13:56)
[2022-05-15 14:10] VITALS: BP 135/84; PULSE 89; O2SAT 98
--- NOTE | 2022-05-15 15:05 | PC.NURSE ---
Report received from KELLI Piña Pt ready for discharge, pt verbalizes readiness to go home at this time
== END 2022-05-15 15:09 | disposition home or self-care (01) ==
PROVIDERS: Nurse Practitioner Family; Emergency Provider Emergency Medicine; PCP Student in an Organized Health Care Education/Training Program
DX: H81.10 Benign paroxysmal vertigo, unspecified ear (principal); Z20.822 Contact with and (suspected) exposure to COVID-19; E11.9 Type 2 diabetes mellitus without complications; I10 Essential (primary) hypertension; E78.5 Hyperlipidemia, unspecified
CPT/HCPCS: 70450; 80048; 80076; 83735; 84484; 85025; 87635; 93005; 96360; 99284; 99285

== ENCOUNTER 2022-08-24 10:17 | Emergency (ER) | payer MEDICARE, MEDICAID, SELFPAY ==
[2022-08-24] VITALS (8 sets, daily range): BP systolic 112–169; BP diastolic 68–100; PULSE 100–136; RESP 16–30; TEMP 36.6–39.6; O2SAT 94–97; BMI 35.8
--- NOTE | ~2022-08-24 | CT_ITS ---
EXAMINATION: CT ABDOMEN AND PELVIS WITH CONTRAST CLINICAL INFORMATION: Diarrhea, abdominal pain and fever. COMPARISON: CT scan of the abdomen and pelvis dated 06/29/2009. TECHNIQUE: Multidetector volumetric images were obtained from the superior aspect of the liver through the pubic symphysis following administration 85 mL of Omnipaque 350 intravenous contrast. Sagittal and coronal reformatted images were obtained on the technologist's workstation. Oral contrast: No This CT examination was performed using dose optimization techniques as appropriate, variously including the following: *Automated exposure control *Adjustment of mA and/or kV according to patient size (this includes techniques or standardized protocols for targeted exams where dose is matched to indication/reason for exam; i.e. extremities or head) *Use of iterative reconstruction technique DLP: 723 mGy-cm FINDINGS: LUNG BASES: The visualized lung bases are unremarkable. LIVER, GALLBLADDER, AND BILIARY TREE: Diffuse decreased hepatic attenuation without focal abnormality. No gallbladder/biliary abnormality. PANCREAS: Unremarkable. SPLEEN: Unremarkable. ADRENAL GLANDS: Unremarkable. KIDNEYS AND URETERS: Cortically based linear low-attenuation foci are seen in the upper pole the left kidney (quality audit representative image 70, series 5) as well as in the lower pole of the right kidney quality audit representative image 73, series 5). No nephrolithiasis or hydroureteronephrosis. BLADDER: Decompressed limiting evaluation without focal abnormality. GASTROINTESTINAL TRACT: The stomach, small bowel and appendix are unremarkable. The colon shows mild diverticulosis distally in the sigmoid colon without surrounding abnormality. The rectum is unremarkable. ABDOMINAL WALL: No significant hernia is appreciated. LYMPH NODES: No lymphadenopathy. VASCULAR: Unremarkable. PELVIC VISCERA: Mild prostatomegaly with mild central calcifications. OSSEOUS STRUCTURES: Unremarkable. CT/CT abdomen pelvis w IV con IMPRESSION: 1. No acute intra-abdominal/pelvic abnormality to explain the patient's symptoms. 2. Hepatic steatosis. 3. Mild sigmoid diverticulosis without evidence for acute diverticulitis. 4. Mild prostatomegaly.
--- NOTE | ~2022-08-24 | CT_ITS ---
EXAMINATION: CT ANGIOGRAM OF THE CHEST WITH AND WITHOUT CONTRAST (CT PULMONARY ANGIOGRAM FOR PE) CLINICAL INFORMATION: Hemoptysis, fever, recent travel COMPARISON: CTA from 11/30/2018 and 02/02/2018 TECHNIQUE: Prior to contrast administration, noncontrast localization images were obtained. Subsequently, multidetector volumetric imaging was performed from the thoracic inlet to below the diaphragms following the administration of 65 mL Omnipaque 350 intravenous contrast. No contrast reaction reported Sagittal, coronal, and MIP oblique sagittal reformatted images were obtained on the CT workstation, uploaded to PACS, and reviewed. This CT examination was performed using dose optimization techniques as appropriate, variously including the following: *Automated exposure control *Adjustment of mA and/or kV according to patient size (this includes techniques or standardized protocols for targeted exams where dose is matched to indication/reason for exam; i.e. extremities or head) *Use of iterative reconstruction technique Total exam dose-length product 434 mGy-cm FINDINGS: QUALITY OF STUDY/CONTRAST BOLUS: Satisfactory. PULMONARY ARTERIES: No pulmonary emboli. THORACIC AORTA: There is coarctation of the [place] aorta. Aortic stent graft is again seen extending from the distal aortic arch extending through an old aortic bypass graft and into the [place] distal thoracic aorta. The endograft is patent and unchanged in positioning compared to the prior exam. The right brachiocephalic artery and left common carotid artery remain patent. 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 A left common carotid artery to mid subclavian artery bypass graft is patent and unchanged. 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 This aneurysm sac was seen on the prior CT scans and a patient registration representative and aneurysm of the prior bypass graft which had been successfully excluded by the endograft. There is no evidence of arterial enhancement or areas of leak into the excluded aneurysm sac. The residual aneurysm sac measures 4.7 x 3.5 cm, previously measuring 6.3 x 4.8 cm. LUNG: Dense airspace consolidation is seen within the posterior left upper lobe adjacent to to the aneurysm sac which contains an air-fluid level. 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 Cannot exclude active infection within the aneurysm sac. There is some linear atelectasis in the lingula. Left lower lobe and right lung are clear. PLEURA: No pleural effusion or pneumothorax. MEDIASTINUM: Normal heart size. No pericardial effusion. No hilar or mediastinal lymphadenopathy. No evidence of septal bowing or right heart strain. CORONARY ARTERY CALCIFICATION: None visualized on this study. CHEST WALL/AXILLA: No axillary or internal mammary lymphadenopathy. OSSEOUS STRUCTURES: No acute or suspicious osseous abnormality. UPPER ABDOMEN: Unremarkable. No reflux of contrast into the hepatic veins to suggest elevated right heart pressures. CT/CT angio chest PE protocol IMPRESSION: 1. No evidence of pulmonary embolus. 2. Congenital coarctation of the aorta with thoracic aortic stent graft and bypass graft. 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 There is dense airspace consolidation within the posterior left upper lobe adjacent to the aneurysm sac which contains an air-fluid level. 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 Cannot exclude active infection within the aneurysm sac. 3. The aneurysm sac is overall decreased in size compared to the prior exam and there is no evidence of contrast opacification to suggest endoleak or active extravasation of contrast This critical result was discussed with Lillie Corrales APRN at 1624 on 08/24/2022 and it was ascertained that the content and urgency of the report was understood at the time of direct communication. VTE: negative.
--- NOTE | 2022-08-24 10:39 | PC.NURSE ---
Pt arrived via EMS, reporting diarrhea and abdominal pain since Fri, unable to keep any food or fluids in, denies vomiting, hyperactive bowel sounds noted, R upper quad pain w/ palpitation
[2022-08-24 10:42] LABS: Hematocrit 46.5 % (42.0-52.0); Hemoglobin 15.7 g/dl (14.0-18.0); Mean Corpuscular HGB Conc 33.8 g/dl (31.0-36.0); Mean Corpuscular Hemoglobin 29.1 pg (27.0-33.0); Mean Corpuscular Volume 86.1 fL (80.0-98.0); Red Cell Distribution Width 12.7 % (11.0-16.0); White Blood Count 9.4 X10*3/uL (4.8-10.8)
--- NOTE | 2022-08-24 11:00 | ED_ITS ---
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 Patient reports 10 episodes today of diarrhea which is nonbloody. States it is watery. No sick contact or recent antibiotic use. Did travel to [place] 2 months ago for a The day before his symptoms started he did order [employer] Home Medications Medication Instructions Recorded Confirmed amlodipine 10 mg tablet 10 mg PO QPM blood pressure 08/24/22 08/24/22 aspirin 81 mg tablet,delayed 81 mg PO QAM 08/24/22 08/24/22 release cyanocobalamin (vitamin B-12) 1,000 mcg PO QAM 08/24/22 08/24/22 1,000 mcg tablet furosemide 40 mg tablet 40 mg PO QAM blood pressure 08/24/22 08/24/22 glipizide 10 mg tablet 20 mg PO QAM diabetes mellitus 08/24/22 08/24/22 lisinopril 40 mg tablet 40 mg PO QAM blood pressure 08/24/22 08/24/22 metformin 1,000 mg tablet 1,000 mg PO QPM diabetes mellitus 08/24/22 08/24/22 metoprolol succinate 25 mg 25 mg PO QAM blood pressure 08/24/22 08/24/22 tablet,extended release 24 hr rosuvastatin 10 mg tablet 10 mg PO QPM cholesterol 08/24/22 08/24/22 Allergies Allergy/AdvReac Type Severity Reaction Status Date / Time Penicillins Allergy Mild RASH Unverified 12/23/19 16:21 lisinopril Allergy Unknown Verified 10/07/18 00:00 penicillin V Allergy Unknown Verified 10/07/18 00:00 Review of Systems Review of Systems: Yes all other systems are reviewed and are negative Constitutional: Constitutional: Reports no additional constitutional complaints, Denies body ache(s), Denies chills, Reports fever(s), Denies headache(s) and Denies weakness Eyes: Eyes: Reports no additional eye complaints and Denies change in vision ENT: Reports system reviewed and no additional complaints, except as docum ented, Denies dizziness, Denies headache(s), Denies nasal congestion, Denies nasal discharge and Denies neck pain Cardiovascular: Cardiovascular: Reports no additional cardiovascular complaints, Denies chest pain, Denies leg edema and Denies dyspnea Respiratory: Respiratory: Reports no additional respiratory complaints, Denies cough and Denies dyspnea Gastrointestinal: Gastrointestinal: Reports no additional gastrointestinal complaints, Reports abdominal pain, Reports diarrhea, Denies nausea and Denies vomiting Genitourinary: Genitourinary: Denies urinary incontinence Musculoskeletal: Musculoskeletal: Reports no additional musculoskeletal complaints, Denies back pain, Denies arthralgias, Denies joint swelling, Denies neck pain, Denies numbness and Denies tingling Integumentary/Breasts: Skin/Breast: Reports system reviewed and no additional complaints, except as docu and Denies rash Neurologic: Reports system reviewed and no additional complaints, except as documented, Denies dizziness, Denies headache(s), Denies numbness, Denies t ingling and Denies weakness [facility] Past Medical History Attestation statement: The following information was validated with the patient. Source: old records reviewed and nursing notes reviewed Medical History Asthma Coarctation of aorta Diabetes HTN (hypertension) Surgical History Status post aortic coarctation stent placement Social History Social History Alcohol intake: current Alcohol intake frequency: holidays/special occasions only Substance Use Type: Marijuana Advance Directives: No Physical Exam ED Vital Signs: Vital Signs - 24 hr 08/24/22 10:26 08/24/22 12:16 08/24/22 13:12 Temperature 99.7 F 100.1 F Pulse Rate 106 H 100 101 H Respiratory Rate 18 16 22 H Blood Pressure 112/74 122/71 123/79 Pulse Oximetry 96 97 94 Oxygen Delivery Method Room Air Room Air Room Air 08/24/22 15:02 08/24/22 16:00 08/24/22 17:54 Temperature 103.2 F H 103.3 F H 103.2 F H Pulse Rate 125 H 136 H 133 H Respiratory Rate 26 H 24 H Blood Pressure 169/92 H 143/87 H Pulse Oximetry 95 94 Oxygen Delivery Method Room Air Room Air BMI result Body Mass Index 35.8 Const General: cooperative, healthy appearing, comfortable and no acute distress Orientation/consciousness: patient oriented x3 Limitations: no limitations HENMT Head: Yes normal to inspection Ears: hearing grossly normal bilaterally Eyes General: appearance normal, both eyes and all related structures Pupils: Equal, round and reactive pupils present Neck Neck: Yes normal visual inspection, Yes full ROM, Yes no lymphadenopathy and Yes no meningeal signs Chest Chest palpation & inspection: normal inspection of the chest Resp Effort & Inspection: normal respiratory effort Auscultation: clear to auscultation bilaterally Cardio Rate: regular rate Rhythm: regular rhythm Peripheral pulses: Peripheral pulses 2+ throughout GI Inspection: Yes normal to inspection Palpation (GI): Soft to palpation, Tenderness to palpation present (GI) (diffusely ), no guarding and not rigid Auscultation: normal bowel sounds General: Yes no CVA tenderness Back/Spine/Pelvis Back: no CVA tenderness Thoracic/Lumbar Spine: thoracic and lumbar spine normal to inspection Skin General skin exam: no rashes or lesions noted Neuro General: patient oriented x3, moves all extremities and no meningeal signs Cranial nerves: Yes Equal, round and reactive pupils present Cognition (Neuro): normal cognition Gait exam (Neuro): Normal gait present Extrem General: Yes normal to inspection, Yes no pedal edema and Yes no calf tenderness Course Course Course Narrative: 1425-On review of labs patient has a bandemia (30), thromobocytopenia with a normal CT scan and negative stool studies (GI Panel, cdfiff). I went to see the patient and he now having hemoptysis (about 5 episodes of 1 tablespoon of bright red blood). Now febrile 103.2, hr 125, rr 26. I spoke to Dr Matias and we went to see the patient together. Consider PE in this patient and so we will order a CTA to eval further. Additionally d/t fever, hemoptysis we considered TB. No reports of weight loss, night swears, any known exposure. I did order a T Spot. Per nursing this cannot be collected this weekend but josy on Friday on day shift. We will place the patient on airborne precautions. Charge nurse aware and patient moved to isolation room Also ordered sputum culture, AFB culture. Also consider underlying CAP. At this time infection is suspected. Antibiotics ordered. Anticipate admission. Reevaluation(s) Reevaluation #1: 1630-call from radiology. Patient has a patent stent noted in the distal aortic arch. There appears to be a left upper lobe pneumonia with air near the arch. 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 There is no flow noted through this area. Patient reports that he had his surgery in 2019 at [facility] (Dr Sanchez). I do believe the patient would benefit from transfer for further management so I will call the transfer line. Reevaluation #2: 1635-Spoke to [facility]. Waiting for call back from [facility]. Reevaluation #3: 1700-Spoke to vascular mental retardation nurse at [facility] (Dr. Todd Shea). He will review the images, d/w thoracics if needed and determine if there is any surgical intervention. Additional Reevaluation(s): 1745-Call back from vascular at [facility] (Dr Shea). There is no vascular surgical intervention. He did speak to their thoracics mental retardation nurse and they recommend MICU with thoracics consultation, possible angio with IR if emobolization required. Unfortunately, there are no ICU meds at [facility] therefore they cannot accept the patient. Consultations Consultation #1: 1800-Spoke to [facility] transfer line. They accepted transfer to [facility] ER under Dr Edwards. Patient is agreeable to this Medications Administered Discontinued Medications Generic Name Dose Route Start Last Admin Trade Name Freq PRN Reason Stop Dose Admin Acetaminophen 975 mg 08/24/22 14:08 08/24/22 14:57 Acetaminophen 325 Mg Tablet PO 08/24/22 14:09 975 mg ONCE ONE Administration Sodium Chloride 1,000 mls @ 999 mls/hr 08/24/22 10:58 08/24/22 12:03 Ns IV 08/24/22 11:58 Infused .Q1H1M STA Infusion Sodium Chloride 1,000 mls @ 999 mls/hr 08/24/22 13:04 08/24/22 14:00 Ns IV 08/24/22 14:04 Infused .Q1H1M STA Infusion Metronidazole 500 mg in 100 mls @ 100 mls/hr 08/24/22 14:25 08/24/22 17:55 Flagyl IV 08/24/22 15:24 Infused ONCE ONE Infusion Levofloxacin 750 mg in 150 mls @ 100 mls/hr 08/24/22 14:25 08/24/22 16:36 Levaquin IV 08/24/22 15:54 Infused ONCE ONE Infusion Sodium Chloride 1,000 mls @ 999 mls/hr 08/24/22 16:13 08/24/22 17:55 Ns IV 08/24/22 17:13 Infused .Q1H1M STA Infusion Iohexol 100 ml 08/24/22 11:49 08/24/22 11:49 Iohexol 350 Mg/Ml 100 Ml Infus..Btl IV 08/24/22 11:50 85 ml ONCE ONE Administration Iohexol 100 ml 08/24/22 15:21 08/24/22 15:21 Iohexol 350 Mg/Ml 100 Ml Infus..Btl IV 08/24/22 15:22 65 ml ONCE ONE Administration Morphine Sulfate 4 mg 08/24/22 13:04 08/24/22 13:08 Morphine Sulfate 4 Mg/Ml Cartridge IVPUSH 08/24/22 13:05 4 mg ONCE ONE Administration Protocol Medical Decision Making Medical Decision Making [facility] Narrative: 57-year-old male who presents to the ER with complaints of diffuse abdominal pain for 3 days, multiple episodes of daily diarrhea and fever after eating Malay food Will obtain labs including blood cultures and lactic acid, viral panel, stool studies, UA, CT Will give IVF, analgesia Differential Diagnosis Differential Diagnoses: The differential diagnosis associated with the presentation includes Infectious diarrhea, diverticulitis, gastroenteritis Admission/Observation Consideration of admission/observation: Escalation of care including admission/o bservation considered See course of care. 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 Consult Healthcare Provider Management of the patient was discussed with: Hospitalist D/w with dr rodriguez who accepted admission pending CTA Lab Data MDM Lab Attestation statement: I reviewed the patient's lab results. 08/24/22 10:33 08/24/22 10:33 Labs: Lab Results 08/24/22 08/24/22 08/24/22 Range/Units 10:33 10:33 10:43 WBC 9.4 (4.8-10.8) X10*3/uL RBC 5.40 (4.60-5.80) X10*6/uL Hgb 15.7 (14.0-18.0) g/dl Hct 46.5 (42.0-52.0) % MCV 86.1 (80.0-98.0) fL MCH 29.1 (27.0-33.0) pg MCHC 33.8 (31.0-36.0) g/dl RDW 12.7 (11.0-16.0) % Plt Count 130 L D (160-400) X10*3/uL MPV 11.2 (9.4-12.4) fL Immature Gran % (Auto) Cancelled Neut % (Auto) Cancelled Lymph % (Auto) Cancelled [place] % (Auto) Cancelled Eos % (Auto) Cancelled Baso % (Auto) Cancelled Lymph # (Auto) Cancelled [place] # (Auto) Cancelled Eos # (Auto) Cancelled Baso # (Auto) Cancelled Abs Immat Gran (auto) Cancelled Absolute Neuts (auto) Cancelled Absolute Nucleated RBC 0.000 (0.0-0.012) X10*3/uL Nucleated RBC % (auto) 0.0 (0.0-0.2) /100WBC Neutrophils % (Manual) 57 (45-73) % Band Neutrophils % 30 H (3-5) % Lymphocytes % (Manual) 7 L (20-40) % Monocytes % (Manual) 6 (2-11) % Abs Neuts (Manual) 8.2 (2.0-8.3) X10*3/uL Lymphocytes # (Manual) 0.7 L (1.2-4.9) X10*3/uL Monocytes # (Manual) 0.6 (0.1-1.2) X10*3/uL Toxic Vacuolation PRESENT Dohle Bodies PRESENT Platelet Estimate DECREASED (NORMAL) Large Platelets PRESENT Plt Morphology Comment NOTED RBC Morphology NORMAL PT (10.0-13.1) SEC INR (0.9-1.1) Sodium 138 (135-145) mmol/L Potassium 3.6 (3.3-5.1) mmol/L Chloride 104 (96-108) mmol/L Carbon Dioxide 23 (22-29) mmol/L Anion Gap 15 (12-20) BUN 13 (9-16) mg/dL Creatinine 1.33 (0.5-1.4) mg/dL Estim Creat Clear Calc 67.2 Estimated GFR 55 Random Glucose 264 H (60-115) mg/dL Lactic Acid (0.5-2.0) mmol/L Calcium 9.5 (8.4-10.2) mg/dL Magnesium (1.6-2.6) mg/dL Total Bilirubin 0.8 (0.0-1.0) mg/dL AST 32 (5-37) U/L ALT 27 (0-40) U/L Alkaline Phosphatase 68 (39-117) U/L Total Protein 6.5 (6.5-8.0) g/dL Albumin 3.9 (3.5-5.0) g/dL Lipase 26 (8-78) U/L Stl C. cayetanensis PCR (Not Detect.) Stool Rotavirus A PCR (Not Detect.) Stl Adenov F 40/41 PCR (Not Detect.) Stool Astrovirus (PCR) (Not Detect.) Stool Campylobacter PCR (Not Detect.) Stool Cryptosporidium PCR (Not Detect.) Stl Sh Tox Pr E STEC PCR (Not Detect.) Stool E coli O157 PCR (Not Detect.) Stl Enterotoxigenic E PCR (Not Detect.) Stool EPEC (PCR) (Not Detect.) Stool EAEC (PCR) (Not Detect.) Stl E. histolytica PCR (Not Detect.) Stool Giardia Lamblia PCR (Not Detect.) Stl P. shigelloides PCR (Not Detect.) Stool Salmonella PCR (Not Detect.) Stool Sapovirus (PCR) (Not Detect.) Stl Shigella/EIEC PCR (Not Detect.) St Y.enterocolitica PCR (Not Detect.) Stool Vibrio (PCR) (Not Detect.) Stl Vibrio cholerae PCR (Not Detect.) Stl Norovirus GI/GII PCR (Not Detect.) C. difficile Tox B Gene (Negative) Influenza Type A (PCR) NEGATIVE (Negative) Influenza Type B (PCR) NEGATIVE (Negative) RSV RNA Qual (PCR) NEGATIVE (Negative) SARS-CoV-2 RNA (RT-PCR) NEGATIVE (Negative) Blood Type Antibody Screen 08/24/22 08/24/22 08/24/22 Range/Units 11:13 11:13 12:11 WBC (4.8-10.8) X10*3/uL RBC (4.60-5.80) X10*6/uL Hgb (14.0-18.0) g/dl Hct (42.0-52.0) % MCV (80.0-98.0) fL MCH (27.0-33.0) pg MCHC (31.0-36.0) g/dl RDW (11.0-16.0) % Plt Count (160-400) X10*3/uL MPV (9.4-12.4) fL Immature Gran % (Auto) Neut % (Auto) Lymph % (Auto) [place] % (Auto) Eos % (Auto) Baso % (Auto) Lymph # (Auto) [place] # (Auto) Eos # (Auto) Baso # (Auto) Abs Immat Gran (auto) Absolute Neuts (auto) Absolute Nucleated RBC (0.0-0.012) X10*3/uL Nucleated RBC % (auto) (0.0-0.2) /100WBC Neutrophils % (Manual) (45-73) % Band Neutrophils % (3-5) % Lymphocytes % (Manual) (20-40) % Monocytes % (Manual) (2-11) % Abs Neuts (Manual) (2.0-8.3) X10*3/uL Lymphocytes # (Manual) (1.2-4.9) X10*3/uL Monocytes # (Manual) (0.1-1.2) X10*3/uL Toxic Vacuolation Dohle Bodies Platelet Estimate (NORMAL) Large Platelets Plt Morphology Comment RBC Morphology PT (10.0-13.1) SEC INR (0.9-1.1) Sodium (135-145) mmol/L Potassium (3.3-5.1) mmol/L Chloride (96-108) mmol/L Carbon Dioxide (22-29) mmol/L Anion Gap (12-20) BUN (9-16) mg/dL Creatinine (0.5-1.4) mg/dL Estim Creat Clear Calc Estimated GFR Random Glucose (60-115) mg/dL Lactic Acid 1.8 (0.5-2.0) mmol/L Calcium (8.4-10.2) mg/dL Magnesium 1.6 (1.6-2.6) mg/dL Total Bilirubin (0.0-1.0) mg/dL AST (5-37) U/L ALT (0-40) U/L Alkaline Phosphatase (39-117) U/L Total Protein (6.5-8.0) g/dL Albumin (3.5-5.0) g/dL Lipase (8-78) U/L Stl C. cayetanensis PCR (Not Detect.) Stool Rotavirus A PCR (Not Detect.) Stl Adenov F 40/41 PCR (Not Detect.) Stool Astrovirus (PCR) (Not Detect.) Stool Campylobacter PCR (Not Detect.) Stool Cryptosporidium PCR (Not Detect.) Stl Sh Tox Pr E STEC PCR (Not Detect.) Stool E coli O157 PCR (Not Detect.) Stl Enterotoxigenic E PCR (Not Detect.) Stool EPEC (PCR) (Not Detect.) Stool EAEC (PCR) (Not Detect.) Stl E. histolytica PCR (Not Detect.) Stool Giardia Lamblia PCR (Not Detect.) Stl P. shigelloides PCR (Not Detect.) Stool Salmonella PCR (Not Detect.) Stool Sapovirus (PCR) (Not Detect.) Stl Shigella/EIEC PCR (Not Detect.) St Y.enterocolitica PCR (Not Detect.) Stool Vibrio (PCR) (Not Detect.) Stl Vibrio cholerae PCR (Not Detect.) Stl Norovirus GI/GII PCR (Not Detect.) C. difficile Tox B Gene NEGATIVE (Negative) Influenza Type A (PCR) (Negative) Influenza Type B (PCR) (Negative) RSV RNA Qual (PCR) (Negative) SARS-CoV-2 RNA (RT-PCR) (Negative) Blood Type Antibody Screen 08/24/22 08/24/22 08/24/22 Range/Units 12:11 16:17 16:17 WBC (4.8-10.8) X10*3/uL RBC (4.60-5.80) X10*6/uL Hgb (14.0-18.0) g/dl Hct (42.0-52.0) % MCV (80.0-98.0) fL MCH (27.0-33.0) pg MCHC (31.0-36.0) g/dl RDW (11.0-16.0) % Plt Count (160-400) X10*3/uL MPV (9.4-12.4) fL Immature Gran % (Auto) Neut % (Auto) Lymph % (Auto) [place] % (Auto) Eos % (Auto) Baso % (Auto) Lymph # (Auto) [place] # (Auto) Eos # (Auto) Baso # (Auto) Abs Immat Gran (auto) Absolute Neuts (auto) Absolute Nucleated RBC (0.0-0.012) X10*3/uL Nucleated RBC % (auto) (0.0-0.2) /100WBC Neutrophils % (Manual) (45-73) % Band Neutrophils % (3-5) % Lymphocytes % (Manual) (20-40) % Monocytes % (Manual) (2-11) % Abs Neuts (Manual) (2.0-8.3) X10*3/uL Lymphocytes # (Manual) (1.2-4.9) X10*3/uL Monocytes # (Manual) (0.1-1.2) X10*3/uL Toxic Vacuolation Dohle Bodies Platelet Estimate (NORMAL) Large Platelets Plt Morphology Comment RBC Morphology PT 15.0 H (10.0-13.1) SEC INR 1.3 H (0.9-1.1) Sodium (135-145) mmol/L Potassium (3.3-5.1) mmol/L Chloride (96-108) mmol/L Carbon Dioxide (22-29) mmol/L Anion Gap (12-20) BUN (9-16) mg/dL Creatinine (0.5-1.4) mg/dL Estim Creat Clear Calc Estimated GFR Random Glucose (60-115) mg/dL Lactic Acid (0.5-2.0) mmol/L Calcium (8.4-10.2) mg/dL Magnesium (1.6-2.6) mg/dL Total Bilirubin (0.0-1.0) mg/dL AST (5-37) U/L ALT (0-40) U/L Alkaline Phosphatase (39-117) U/L Total Protein (6.5-8.0) g/dL Albumin (3.5-5.0) g/dL Lipase (8-78) U/L Stl C. cayetanensis PCR Not Detected (Not Detect.) Stool Rotavirus A PCR Not Detected (Not Detect.) Stl Adenov F 40/41 PCR Not Detected (Not Detect.) Stool Astrovirus (PCR) Not Detected (Not Detect.) Stool Campylobacter PCR Not Detected (Not Detect.) Stool Cryptosporidium PCR Not Detected (Not Detect.) Stl Sh Tox Pr E STEC PCR Not Detected (Not Detect.) Stool E coli O157 PCR Not applicable (Not Detect.) Stl Enterotoxigenic E PCR Not Detected (Not Detect.) Stool EPEC (PCR) Not Detected (Not Detect.) Stool EAEC (PCR) Not Detected (Not Detect.) Stl E. histolytica PCR Not Detected (Not Detect.) Stool Giardia Lamblia PCR Not Detected (Not Detect.) Stl P. shigelloides PCR Not Detected (Not Detect.) Stool Salmonella PCR Not Detected (Not Detect.) Stool Sapovirus (PCR) Not Detected (Not Detect.) Stl Shigella/EIEC PCR Not Detected (Not Detect.) St Y.enterocolitica PCR Not Detected (Not Detect.) Stool Vibrio (PCR) Not Detected (Not Detect.) Stl Vibrio cholerae PCR Not Detected (Not Detect.) Stl Norovirus GI/GII PCR Not Detected (Not Detect.) C. difficile Tox B Gene (Negative) Influenza Type A (PCR) (Negative) Influenza Type B (PCR) (Negative) RSV RNA Qual (PCR) (Negative) SARS-CoV-2 RNA (RT-PCR) (Negative) Blood Type O Positive Antibody Screen NEGATIVE Independent Interpretation I performed an independent interpretation of an: CT Scan Interpretation: I independently reviewed the CT scan abdomen/pelvis/CTA and agree with radiologist's report Radiology Impression Discussion of test interpretation with radiology: I have reviewed the radiologist's reading. Radiologist Impression: DLP: 723 mGy-cm FINDINGS: LUNG BASES: The visualized lung bases are unremarkable.? LIVER, GALLBLADDER, AND BILIARY TREE: Diffuse decreased hepatic attenuation without focal abnormality. No gallbladder/biliary abnormality. PANCREAS: Unremarkable.? SPLEEN: Unremarkable.? ADRENAL GLANDS: Unremarkable.? KIDNEYS AND URETERS: Cortically based linear low-attenuation foci are seen in the upper pole the left kidney (sales representative sales manager image 70, series 5) as well as in the lower pole of the right kidney sales representative sales manager image 73, series 5). No nephrolithiasis or hydroureteronephrosis.? BLADDER: Decompressed limiting evaluation without focal abnormality.? GASTROINTESTINAL TRACT: The stomach, small bowel and appendix are unremarkable. The colon shows mild diverticulosis distally in the sigmoid colon without surrounding abnormality. The rectum is unremarkable. ABDOMINAL WALL: No significant hernia is appreciated.? LYMPH NODES: No lymphadenopathy. VASCULAR: Unremarkable. PELVIC VISCERA: Mild prostatomegaly with mild central calcifications.? OSSEOUS STRUCTURES: Unremarkable.? CT/CT abdomen pelvis w IV con IMPRESSION: 1.? No acute intra-abdominal/pelvic abnormality to explain the patient's symptoms. 2.? Hepatic steatosis. 3.? Mild sigmoid diverticulosis without evidence for acute diverticulitis. 4.? Mild prostatomegaly. ? FINDINGS: QUALITY OF STUDY/CONTRAST BOLUS: Satisfactory. PULMONARY ARTERIES: No pulmonary emboli.? THORACIC AORTA: There is coarctation of the [place] aorta. Aortic stent graft is again seen extending from the distal aortic arch extending through an old aortic bypass graft and into the [place] distal thoracic aorta. The endograft is patent and unchanged in positioning compared to the prior exam. The right brachiocephalic artery and left common carotid artery remain patent. 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 A left common carotid artery to mid subclavian artery bypass graft is patent and unchanged. 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 This aneurysm sac was seen on the prior CT scans and a sales representative sales manager and aneurysm of the prior bypass graft which had been successfully excluded by the endograft. There is no evidence of arterial enhancement or areas of leak into the excluded aneurysm sac. The residual aneurysm sac measures 4.7 x 3.5 cm, previously measuring 6.3 x 4.8 cm. LUNG: Dense airspace consolidation is seen within the posterior left upper lobe adjacent to to the aneurysm sac which contains an air-fluid level. 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 Cannot exclude active infection within the aneurysm sac. There is some linear atelectasis in the lingula. Left lower lobe and right lung are clear. PLEURA: No pleural effusion or pneumothorax. MEDIASTINUM: Normal heart size.? No pericardial effusion.? No hilar or mediastinal lymphadenopathy.? No evidence of septal bowing or right heart strain. CORONARY ARTERY CALCIFICATION: None visualized on this study. CHEST WALL/AXILLA: No axillary or internal mammary lymphadenopathy. OSSEOUS STRUCTURES: No acute or suspicious osseous abnormality.? UPPER ABDOMEN: Unremarkable.? No reflux of contrast into the hepatic veins to suggest elevated right heart pressures. CT/CT angio chest PE protocol IMPRESSION: 1.? No evidence of pulmonary embolus. 2.? Congenital coarctation of the aorta with thoracic aortic stent graft and bypass graft. 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 There is dense airspace consolidation within the posterior left upper lobe adjacent to the aneurysm sac which contains an air-fluid level. 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 Cannot exclude active infection within the aneurysm sac. 3.? The aneurysm sac is overall decreased in size compared to the prior exam and there is no evidence of contrast opacification to suggest endoleak or active extravasation of contrast ? Critical Care Time Critical Care Time Critical Care Time: Yes Total Critical Care Time: 120 Attestation: Re-evaluation of patient clinical status, d/w with vascular at [facility], d/w with tertiary care center ([facility]) for transfer Discharge Plan Discharge Clinical Impression: Hemoptysis, Bandemia, Pneumonia Patient Disposition: [facility] Care Hospital Transfer Details: [facility] Prescriptions: No Action furosemide 40 mg tablet 40 mg PO QAM glipizide 10 mg tablet 20 mg PO QAM cyanocobalamin (vitamin B-12) 1,000 mcg tablet 1,000 mcg PO QAM aspirin 81 mg tablet,delayed release (DR/EC) 81 mg PO QAM amlodipine 10 mg tablet 10 mg PO QPM metformin 1,000 mg tablet 1,000 mg PO QPM metoprolol succinate 25 mg tablet extended release 24 hr 25 mg PO QAM lisinopril 40 mg tablet 40 mg PO QAM rosuvastatin 10 mg tablet 10 mg PO QPM
[2022-08-24] MEDS: 0.9 % Sodium Chloride 1,000 ML 999 ML IV ×3 (11:08→16:24)
[2022-08-24 11:11] LABS: Mean Platelet Volume 11.2 fL (9.4-12.4); Platelet Count 130 X10*3/uL (160-400)
[2022-08-24 11:15] LABS: Neutrophils Percent Manual 57 % (45-73)
[2022-08-24 11:18] LABS: Band Neutrophils Percent 30 % (3-5); Dohle Bodies PRESENT; Large Platelet PRESENT; Lymphocytes Absolute Manual 0.7 X10*3/uL (1.2-4.9); Lymphocytes Percent Manual 7 % (20-40); Monocytes Absolute Manual 0.6 X10*3/uL (0.1-1.2); Monocytes Percent Manual 6 % (2-11); Neutrophils Absolute Manual 8.2 X10*3/uL (2.0-8.3); Platelet Estimate DECREASED (NORMAL); Platelet Morphology Comment NOTED; RBC Morphology NORMAL; Toxic Vacuolation PRESENT
[2022-08-24 11:27] LABS: Influenza A PCR NEGATIVE (Negative); Influenza B PCR NEGATIVE (Negative); Resp Syncy Virus RNA Qual PCR NEGATIVE (Negative); SARS COV2 PCR INHOUSE NEGATIVE (Negative)
[2022-08-24 11:31] LABS: Alanine Aminotransferase 27 U/L (0-40); Albumin Level 3.9 g/dL (3.5-5.0); Alkaline Phosphatase 68 U/L (39-117); Anion Gap 15 (12-20); Aspartate Amino Transferase 32 U/L (5-37); Bilirubin Total 0.8 mg/dL (0.0-1.0); Blood Urea Nitrogen 13 mg/dL (9-16); Calcium 9.5 mg/dL (8.4-10.2); Carbon Dioxide 23 mmol/L (22-29); Chloride 104 mmol/L (96-108); Creatinine Clr Calc Pharmacy 67.2; Estimated Glomerular Filt Rate 55; Glucose Random 264 mg/dL (60-115); Lipase 26 U/L (8-78); Potassium 3.6 mmol/L (3.3-5.1); Sodium 138 mmol/L (135-145); Total Protein 6.5 g/dL (6.5-8.0)
[2022-08-24 11:34] LABS: Lactic Acid 1.8 mmol/L (0.5-2.0)
[2022-08-24 11:38] LABS: Magnesium 1.6 mg/dL (1.6-2.6)
[2022-08-24] MEDS: iohexoL 350 MG/ML 100 ML INFUS..BTL IV ×2 (11:49→15:21)
[2022-08-24] MEDS: Morphine Sulfate 4 MG/ML CARTRIDGE IVPUSH ×2 (13:08→20:01)
--- NOTE | 2022-08-24 13:09 | PC.NURSE ---
Pt reporting that he spit up bright red blood, noted by nurse and reported to Sherice RUIZ Pt then called nurse in d/t new 01/14 L groin pain, provider aware, Morphine ordered and given, second liter of NS hung
[2022-08-24 13:26] LABS: CDiff Gene PCR NEGATIVE (Negative)
[2022-08-24 14:04] LABS: Adenovirus F 40/41 Not Detected (Not Detect.); Astrovirus Not Detected (Not Detect.); Campylobacter Not Detected (Not Detect.); Cryptosporidium Not Detected (Not Detect.); Cyclospora cayetanensis Not Detected (Not Detect.); E. coli EAEC Not Detected (Not Detect.); E. coli EPEC Not Detected (Not Detect.); E. coli ETEC Not Detected (Not Detect.); E. coli STEC Not Detected (Not Detect.); Entamoeba histolytica Not Detected (Not Detect.); Giardia lamblia Not Detected (Not Detect.); Norovirus GI/GII Not Detected (Not Detect.); Plesiomonas shigelloides Not Detected (Not Detect.); Rotavirus A Not Detected (Not Detect.); Salmonella Not Detected (Not Detect.); Sapovirus Not Detected (Not Detect.); Shigella sp./EIEC Not Detected (Not Detect.); Vibrio Not Detected (Not Detect.); Vibrio Cholerae Not Detected (Not Detect.); Yersinia enterocolitica Not Detected (Not Detect.)
[2022-08-24] MEDS: Acetaminophen 325 MG TABLET 975 MG PO ×2 (14:57→18:31)
[2022-08-24] MEDS: levoFLOXacin/D5W 750 MG/150 ML PIGGYBACK 100 MG IV (14:58)
--- NOTE | 2022-08-24 16:18 | MHC.EDTECH ---
THIS PCT ASSUMED CARE OF PT AT 1500 ,VITALS SIGN TAKEN ,TYPE AND SCREEN AND PT INR DRAWN AND SENT TO LAB ,PATIENT WAS CHANGE INTO HOSPITAL ATTIRE ,URINAL EMPTY 600 ML .
[2022-08-24] MEDS: metroNIDAZOLE/NS 500 MG/100 ML PIGGYBACK 100 MG IV (16:24)
--- NOTE | 2022-08-24 16:33 | MHC.EDTECH ---
PT WAS GIVEN ICE CHIPS .
--- NOTE | 2022-08-24 16:34 | PC.NURSE ---
temperture rechecked post Tylenol with n improvement. ED provider made aware. ice packs put under patients arms and neck will CTM
[2022-08-24 16:36] LABS: INTERNATIONAL NORM RATIO 1.3 (0.9-1.1)
--- NOTE | 2022-08-24 17:58 | PC.NURSE ---
temp recheck- temp still 103. ED provider aware.
--- NOTE | 2022-08-24 18:28 | PC.NURSE ---
nurse to nurse report called to [facility] transfer line.
--- NOTE | 2022-08-24 20:01 | MHC.EDTECH ---
@ 2000 Enrique Bejarano called and stated they will be arriving in about 20Mins.RN aware
--- NOTE | 2022-08-24 20:04 | MHC.EDTECH ---
PT VITALS SIGN TAKEN AND STOOL SAMPLE COLLECTED AND SENT TO LAB .
--- NOTE | 2022-08-24 20:05 | PC.NURSE ---
HR 137 rr 24 Provider made aware
--- NOTE | 2022-08-24 20:36 | MHC.EDTECH ---
[facility] arrived @ 2031 to transport patient to [facility]. RN aware
== END 2022-08-24 20:45 | disposition short-term general hospital (02) ==
PROVIDERS: Nurse Practitioner Family; Emergency Provider Emergency Medicine Emergency Medical Services; PCP Student in an Organized Health Care Education/Training Program
DX: R04.2 Hemoptysis (principal); D72.825 Bandemia; J18.9 Pneumonia, unspecified organism; R50.9 Fever, unspecified; Z20.828 Contact with and (suspected) exposure to other viral communicable diseases; Z20.822 Contact with and (suspected) exposure to COVID-19; R10.32 Left lower quadrant pain; E11.9 Type 2 diabetes mellitus without complications; I10 Essential (primary) hypertension; F12.90 Cannabis use, unspecified, uncomplicated; Z79.82 Long term (current) use of aspirin; Z79.02 Long term (current) use of antithrombotics/antiplatelets; Z79.84 Long term (current) use of oral hypoglycemic drugs; Z79.899 Other long term (current) drug therapy
CPT/HCPCS: 0241U; 36415; 71275; 74177; 80053; 83605; 83690; 83735; 85007; 85025; 85027; 85610; 86850; 86900; 86901; 87040; 87070; 87077; 87116; 87147; 87177; 87186; 87205; 87206; 87209; 87493; 87507; 96361; 96365; 96366; 96367; 96375; 96376; 99285; J1956; J2270; Q9967

== ENCOUNTER 2022-10-15 09:43 | Outpatient (REF) | payer MEDICARE, MEDICAID, SELFPAY ==
--- NOTE | ~2022-10-15 | XR_ITS ---
EXAMINATION: XR CHEST CLINICAL INFORMATION: Bypass and post op pain COMPARISON: Comparison 11/14/2020 TECHNIQUE: 2 views of the chest were obtained. FINDINGS: There is mild blunting of left CP angle and haziness in the left lower lung likely from underlying effusion and atelectatic changes. The left upper lung and the right lung is expanded and clear. Patient is status post recent surgery with median sternotomy sutures visualized. Previously seen aortic stent within the distal arch and the descending thoracic aorta is not visualized at this time. XR/XR chest 2V IMPRESSION: 1. Small left pleural effusion with underlying atelectasis is new. The right lung is expanded and clear. 2. The aortic stent is not visualized at this time. Patient had recent chest surgery.
== END 2022-10-15 09:44 | disposition home or self-care (01) ==
LOC: HO.XRAY 09:43
PROVIDERS: PCP Student in an Organized Health Care Education/Training Program; Visit Provider Radiology Vascular & Interventional Radiology
DX: G89.18 Other acute postprocedural pain (principal); I72.9 Aneurysm of unspecified site
CPT/HCPCS: 71046

== ENCOUNTER 2023-04-08 08:51 | Outpatient (AMB) | payer MEDICARE, MEDICAID, SELFPAY ==
--- NOTE | 2023-04-08 08:58 | A.OFFVIS_ITS ---
Intake Vital Signs 04/08/23 09:05 Handedness Right Intake Visit Reasons: CURER ACID DRUM- Left Shoulder pain Intake Note: David is a 57 year old - hand dominant male who presents today as a new patient for a evaluation of his left shoulder pain. He describes his pain as achy in nature. He denies any weakness. He has done physical therapy exercises which aggravated his pain. He has also tried Tylenol and anti-inflammatory medicines which gave him minimal relief Allergies Penicillins Allergy (Mild, Verified 04/08/23 09:05) RASH lisinopril Allergy (Unknown, Verified 04/08/23 09:05) Unknown penicillin V Allergy (Unknown, Verified 04/08/23 09:05) Rash Medication List - Last Reconciled 04/09/23 by Dustin Falcon MD amlodipine 10 mg PO QPM aspirin 81 mg PO QAM cyanocobalamin (vitamin B-12) 1,000 mcg PO QAM furosemide 40 mg PO QAM glipizide 20 mg PO QAM lisinopril 40 mg PO QAM metformin 1,000 mg PO QPM metoprolol succinate ER 25 mg PO QAM rosuvastatin 10 mg PO QPM [facility] Medical History Asthma Coarctation of aorta Diabetes HTN (hypertension) Surgical History Status post aortic coarctation stent placement Social History Alcohol intake: current Alcohol intake frequency: holidays/special occasions only Substance Use Type: Marijuana Current occupational status: disabled Current occupation: right hand dominant Physical Exam Const Other: Well-nourished well-developed very friendly male awake alert and oriented x3 in no acute distress Extrem Other: Bilateral upper extremity examination shows good capillary refill, no skin lesions noted, normal sensation light touch The left shoulder examination shows decreased range of motion when compared to his right shoulder, 4+ out of 5 strength with supraspinatus testing, positive impingement signs, tenderness over his acromioclavicular joint, no instability Office Procedures Joint Injection/Drain Joint Injection/Drain Primary Site: left shoulder Prep: site was prepped using aseptic technique Injected: 40 mg of, DepoMedrol and 1% plain lidocaine Procedure: The patient tolerated the procedure well Coding 27944 - Large joint Procedure code (CPT) selection complete Results Reviewed Results Reviewed: X-rays of the patient's left shoulder taken today show severe acromioclavicular joint narrowing, a type 3 acromion, no acute bony abnormalities Assessment & Plan Assessment & Plan (1) Left shoulder pain: Code(s): M25.512 - Pain in left shoulder Plan Mr. Thompson Nieves presents with left shoulder pain due to impingement syndrome and acromioclavicular joint arthritis. I had a lengthy discussion with the patient regarding the treatment options. Patient wishes to hold off on surgery for as long as possible. I agree with this plan. Risks and benefits of a left shoulder cortisone injection were discussed at length with the patient. The patient wished to proceed. He tolerated the injection well. He will continue w ith his home stretching program to prevent stiffness. He will follow up with me on an as-needed basis should his symptoms not plateau at an unacceptable level over the next few months. Feel free to call me at any time should questions regarding his orthopedic management arise. I spent 22 minutes in reviewing the patient's records and imaging studies, seeing the patient and documenting in the medical record. Orders: Orders XR shoulder LT min 2V 04/08/23 M25.512 - Pain in left shoulder AMB Joint Injection/Aspiration 04/08/23 M25.512 - Pain in left shoulder Coding Level of Care Code New Pt Level 2 (35740) Diagnoses Left shoulder pain M25.512 CPT Codes Coding - 33018 Large joint: 02724 - Large joint ([id number])
== END 2023-04-08 09:25 | disposition home or self-care (01) ==
PROVIDERS: PCP Student in an Organized Health Care Education/Training Program; Visit Provider Orthopaedic Surgery
DX: M25.512 Pain in left shoulder (principal)
CPT/HCPCS: 20610; 99202

== ENCOUNTER 2023-04-08 09:55 | Outpatient (REF) | payer MEDICARE, MEDICAID, SELFPAY | END 2023-04-08 09:56 | disposition home or self-care (01) | LOC: HO.HOSX 09:55 | PROVIDERS: Visit Provider Orthopaedic Surgery | DX: M25.512 Pain in left shoulder (principal) | CPT/HCPCS: 20610; 73030; 99202; J1020 ==

== ENCOUNTER 2023-04-08 10:04 | Outpatient (REF) | payer MEDICARE, MEDICAID, SELFPAY ==
[2023-04-08 14:56] LABS: MANUAL DIFF FLAG NO
[2023-04-08 15:04] LABS: Basophils Percent Auto 0.5 % (0-2); Eosinophils Absolute Auto 0.1 X10*3/uL (0.0-0.4); Eosinophils Percent Auto 1.4 % (0-4); Hematocrit 47.5 % (42.0-52.0); Imm Gran Abs Auto 0.04 X10*3/uL (0.00-0.03); Imm Gran Pct Auto 0.5 % (0.0-0.4); Lymphocytes Absolute Auto 1.9 X10*3/uL (1.2-4.9); Mean Corpuscular HGB Conc 31.6 g/dl (31.0-36.0); Mean Corpuscular Hemoglobin 25.6 pg (27.0-33.0); Mean Corpuscular Volume 80.9 fL (80.0-98.0); Mean Platelet Volume 11.2 fL (9.4-12.4); Monocytes Absolute Auto 0.5 X10*3/uL (0.1-1.2); Monocytes Percent Auto 6.6 % (2-11); Neutrophils Absolute Auto 5.1 x10*3/uL (2.0-8.3); Platelet Count 235 X10*3/uL (160-400); Red Blood Count 5.87 X10*6/uL (4.60-5.80); Red Cell Distribution Width 15.8 % (11.0-16.0); White Blood Count 7.7 X10*3/uL (4.8-10.8)
[2023-04-08 15:28] LABS: Alanine Aminotransferase 21 U/L (0-40); Albumin Level 4.3 g/dL (3.5-5.0); Alkaline Phosphatase 81 U/L (39-117); Anion Gap 15 (12-20); Aspartate Amino Transferase 21 U/L (5-37); Bilirubin Direct 0.2 mg/dL (0.0-0.5); Bilirubin Total 0.6 mg/dL (0.0-1.0); Blood Urea Nitrogen 14 mg/dL (9-16); C Reactive Protein 0.26 mg/dL (< or = 0.50); Calcium 9.9 mg/dL (8.4-10.2); Carbon Dioxide 28 mmol/L (22-29); Chloride 105 mmol/L (96-108); Estimated Glomerular Filt Rate > 60; Glucose Fasting 140 mg/dL (60-99); Potassium 3.7 mmol/L (3.3-5.1); Sodium 144 mmol/L (135-145); Total Protein 7.4 g/dL (6.5-8.0)
[2023-04-08 15:55] LABS: Erythrocyte Sedimentation Rate 2 MM/HR (0-15)
== END 2023-04-08 10:05 | disposition home or self-care (01) ==
LOC: HO.CHCLDS 10:04
PROVIDERS: PCP Student in an Organized Health Care Education/Training Program; Visit Provider Internal Medicine
DX: Z13.89 Encounter for screening for other disorder (principal)
CPT/HCPCS: 36415; 80048; 80076; 85025; 85652; 86140

== ENCOUNTER 2023-04-12 01:43 | Emergency (ER) | payer MEDICARE, MEDICAID, SELFPAY ==
[2023-04-12 01:49] VITALS: BP 158/84; PULSE 74; O2SAT 100
[2023-04-12 02:00] VITALS: BP 136/80; PULSE 76; RESP 20; TEMP 36.4; O2SAT 98; BMI 32.3
[2023-04-12 02:14] VITALS: BP 164/72; PULSE 74; RESP 14; O2SAT 99
[2023-04-12 02:15] VITALS: TEMP 36.5
[2023-04-12 02:39] LABS: Mean Corpuscular HGB Conc 31.9 g/dl (31.0-36.0); Mean Corpuscular Hemoglobin 26.1 pg (27.0-33.0); Mean Corpuscular Volume 81.7 fL (80.0-98.0); Mean Platelet Volume 10.3 fL (9.4-12.4); Platelet Count 240 X10*3/uL (160-400); Red Blood Count 5.75 X10*6/uL (4.60-5.80); Red Cell Distribution Width 15.4 % (11.0-16.0)
[2023-04-12 02:40] LABS: Appearance Urine Clear; Color Urine Dark Yellow; Glucose Urine UA >=1000 mg/dL (Negative); Leukocyte Esterase Urine Negative (Negative); Nitrite Urine Negative (Negative); PH 5.5 (5.0-9.0); Specific Gravity - Urine >= 1.030 (1.005-1.025); UMIC TRIGGER UACC YES; Urine Blood Negative (Negative); Urine Ketones Negative (Negative); Urine Protein 30 (1+) mg/dL (Neg-Trace)
[2023-04-12 02:42] LABS: Bacteria Urine None Seen (None Seen); Hyaline Casts Urine 0-2 /LPF (0-2); RBC Urine 0-2 /HPF (0-2); Squamous Epithelial Cell Urine 0-2 /HPF (0-2); WBC Urine 0-5 /HPF (0-5)
[2023-04-12 02:56] LABS: Alanine Aminotransferase 142 U/L (0-40); Albumin Level 4.6 g/dL (3.5-5.0); Alkaline Phosphatase 95 U/L (39-117); Anion Gap 14 (12-20); Aspartate Amino Transferase 168 U/L (5-37); Bilirubin Total 1.5 mg/dL (0.0-1.0); Blood Urea Nitrogen 16 mg/dL (9-16); Calcium 9.4 mg/dL (8.4-10.2); Carbon Dioxide 24 mmol/L (22-29); Chloride 107 mmol/L (96-108); Creatinine Clr Calc Pharmacy 114.7; Estimated Glomerular Filt Rate > 60; Glucose Random 154 mg/dL (60-115); Lipase 29 U/L (8-78); Potassium 4.3 mmol/L (3.3-5.1); Sodium 141 mmol/L (135-145); Total Protein 7.8 g/dL (6.5-8.0)
--- NOTE | 2023-04-12 02:57 | ED.ABDPAIN ---
HPI - Abdominal Pain General Chief Complaint: Abdominal Pain Stated Complaint: nausea vommiting/ abdominal pain Time Seen by Provider: 04/12/23 02:48 Source: patient and family Mode of arrival: EMS Limitations: no limitations History of Present Illness HPI narrative: patient comes to the emergency room complaining of 3 days of nausea vomiting and Abdominal pain, mostly epigastric and right upper quadrant. Patient states that the pain is unrelated to eating or drinking. No history of alcohol or drug intake. Related Data Home Medications Medication Instructions Recorded Confirmed amlodipine 10 mg tablet 10 mg PO QPM blood pressure 08/24/22 04/09/23 aspirin 81 mg tablet,delayed 81 mg PO QAM 08/24/22 04/09/23 release cyanocobalamin (vitamin B-12) 1,000 mcg PO QAM 08/24/22 04/09/23 1,000 mcg tablet furosemide 40 mg tablet 40 mg PO QAM blood pressure 08/24/22 04/09/23 glipizide 10 mg tablet 20 mg PO QAM diabetes mellitus 08/24/22 04/09/23 lisinopril 40 mg tablet 40 mg PO QAM blood pressure 08/24/22 04/09/23 metformin 1,000 mg tablet 1,000 mg PO QPM diabetes mellitus 08/24/22 04/09/23 metoprolol succinate 25 mg 25 mg PO QAM blood pressure 08/24/22 04/09/23 tablet,extended release 24 hr rosuvastatin 10 mg tablet 10 mg PO QPM cholesterol 08/24/22 04/09/23 Previous Rx's Medication Instructions Recorded ketorolac 10 mg tablet 10 mg PO TID PRN pain #10 tabs 04/12/23 Allergies Allergy/AdvReac Type Severity Reaction Status Date / Time Penicillins Allergy Mild RASH Verified 04/12/23 02:10 lisinopril Allergy Unknown Unknown Verified 04/12/23 02:10 penicillin V Allergy Unknown Rash Verified 04/12/23 02:10 Review of Systems Review of Systems Constitutional : No Weight loss, No Fever, No Chills, No Night Sweats, No Fatigue, No Malaise ENT/Mouth : No Hearing loss, No Ear Pain, No Nasal Congestion, No Sinus Pain, No Hoarseness, No sore throat, No Rhinorrhea, No Swallowing Difficulty Eyes: No Eye Pain, No Swelling, No Redness, No Foreign Body, No Discharge, No Vision Changes Cardiovascular : No Chest Pain, No SOB, No Dyspnea on Exertion, No Orthopnea, No Edema, No Palpitations Respiratory : No Cough, No Sputum, No Wheezing, No Smoke Exposure, No Dyspnea Gastrointestinal : Complaining of nausea and vomiting No Diarrhea, complaining of Constipation, complaining of epigastric abdominal Pain, No Hematochezia, No Melena Genitourinary : no irregular bleeding, No Dysuria, No Urinary Frequency, No Hematuria, No Urinary Incontinence, No Urgency, No Flank Pain, No Urinary Flow Changes, No Hesitancy Musculoskeletal : No joint pain, No Myalgias, No Joint Swelling Skin : No Skin Lesions, No rash Neuro : No Weakness, No Numbness, No Paresthesias, No Loss of Consciousness, No Dizziness, No Headache Psych : No Anxiety/Panic, No Depression, No SI/HI/AH/VH, No Social Issues, Heme/Lymph: No Bruising, No Bleeding,No Lymphadenopathy Endocrine : No Polyuria, No Polydipsia, No Temperature Intolerance PMFSH Past Medical History Onset Date is defined in the Problem List Problems that require an onset date and time if occurred within 24 hrs of arrival to the ED Aortic Dissection and Rupture; Neurologic impairment; Cardiopulmonary Arrest; Endotracheal Intubation; Insertion or Replacement of Mechanical Circulatory Assist Device Medical History Diabetes HTN (hypertension) Coarctation of aorta Asthma Surgical History Status post aortic coarctation stent placement Social History Social History Alcohol intake: current Alcohol intake frequency: holidays/special occasions only Smoked in Last 30 Days: No Use of substances other than those prescribed or required for medical reasons: No Substance Use Type: Marijuana Advance Directives: No Advance Directives Information Provided: Yes Current occupational status: disabled Current occupation: right hand dominant Physical Exam ED Vital Signs: Vital Signs - 24 hr 04/12/23 02:00 04/12/23 02:14 04/12/23 02:15 Temperature 97.6 F 97.7 F Pulse Rate 76 74 Respiratory Rate 20 14 Blood Pressure 136/80 164/72 H Pulse Oximetry 98 99 Oxygen Delivery Method Room Air Room Air 04/12/23 05:33 Temperature 97.4 F Pulse Rate 64 Respiratory Rate 16 Blood Pressure 143/66 H Pulse Oximetry 96 Oxygen Delivery Method Room Air BMI result Body Mass Index 32.3 Const Other: Appearance: Alert. Oriented X3. No acute distress. Eyes: Pupils equal, round and reactive to light. ENT: Pharynx normal. Neck: Normal inspection. Neck supple. No lymph nodes noted. No crepitus CVS: Normal heart rate and rhythm. Pulses normal. Normal S1 and S2, holosystolic murmur Respiratory: No respiratory distress. Breath sounds normal. No Wheezing. No rales Abdomen: Soft , mild discomfort to palpation in epigastric area, negative nurses sign, no pain in the McBurney point No rigidity. No distention. Skin: Skin warm and dry. Normal skin color. Normal skin turgor. Extremities: No lower extremity edema. No Lacerations. No Rash Neuro: Oriented X 3. No motor deficit. No sensory deficit. Moving all extremities. No slurred speech. CN 2 through 12 grossly intact Psych: calm, cooperative, normal affect Course Course Course Narrative: - patient receiving IV fluids, morphine and Zofran. No diarrhea. - CT scan of the abdomen pending Medical Decision Making Medical Decision Making MDM Narrative: My interpretation of labs, white blood cell count 11.0, slightly elevated, nonspecific. Chemistry within normal limits. The ALT slightly elevated. T bili and D bili slightly bumped -my interpretation of CT scan, no obvious abnormality. However, the report shows that this appendix is approximately 1.1 cm, no significant swelling. However, patient has no pain even on deep palpation in the periumbilical area and left lower quadrant. Patient has more pain in the right upper quadrant area on palpation. Negative Nance sign. Given the patient's labs, I discussed with the patient that it would be best to order an ultrasound to rule out acute cholecystitis. -patient states that after the dose of Toradol, he started feeling much better. -I discussed the ultrasound of the abdomen/right upper quadrant with the sleep technologist, seems that there was a very mild amount of sludge, CBD normal limits. Radiology report pending. -patient has no clinical signs of appendicitis. Patient is very hungry, no periumbilical or right lower quadrant pain. -patient will need to follow-up with surgery -radiology report: Echogenic gallbladder sludge, no wall thickening or stones Differential Diagnosis Differential Diagnoses: The differential diagnosis associated with the presentation includes (Appendicitis, acute cholecystitis, gastritis, functional abdominal pain) Admission/Observation Consideration of admission/observation: Escalation of care including admission/observation considered (Given patient's labs and imaging, admission has been considered) Lab Data MDM Lab Attestation statement: I reviewed the patient's lab results. 04/12/23 02:33 04/12/23 02:33 Labs: Lab Results 04/12/23 04/12/23 Range/Units 02:17 02:33 WBC 11.0 H (4.8-10.8) X10*3/uL RBC 5.75 (4.60-5.80) X10*6/uL Hgb 15.0 (14.0-18.0) g/dl Hct 47.0 (42.0-52.0) % MCV 81.7 (80.0-98.0) fL MCH 26.1 L (27.0-33.0) pg MCHC 31.9 (31.0-36.0) g/dl RDW 15.4 (11.0-16.0) % Plt Count 240 (160-400) X10*3/uL MPV 10.3 (9.4-12.4) fL Absolute Nucleated RBC 0.000 (0.0-0.012) X10*3/uL Nucleated RBC % (auto) 0.0 (0.0-0.2) /100WBC Sodium 141 (135-145) mmol/L Potassium 4.3 (3.3-5.1) mmol/L Chloride 107 (96-108) mmol/L Carbon Dioxide 24 (22-29) mmol/L Anion Gap 14 (12-20) BUN 16 (9-16) mg/dL Creatinine 0.74 (0.5-1.4) mg/dL Estim Creat Clear Calc 114.7 Estimated GFR > 60 Random Glucose 154 H (60-115) mg/dL Calcium 9.4 (8.4-10.2) mg/dL Total Bilirubin 1.5 H (0.0-1.0) mg/dL AST 168 H (5-37) U/L ALT 142 H (0-40) U/L Alkaline Phosphatase 95 (39-117) U/L Troponin I High Sens 6.9 D (<3.5-35.0) ng/L Total Protein 7.8 (6.5-8.0) g/dL Albumin 4.6 (3.5-5.0) g/dL Lipase 29 (8-78) U/L Urine Color Dark Yellow Urine Appearance Clear Urine pH 5.5 (5.0-9.0) Ur Specific [place] >= 1.030 H (1.005-1.025) Urine Protein 30 (1+) H (Neg-Trace) mg/dL Urine Glucose (UA) >=1000 H (Negative) mg/dL Urine Ketones Negative (Negative) mg/dL Urine Blood Negative (Negative) Urine Nitrite Negative (Negative) Ur Leukocyte Esterase Negative (Negative) Urine RBC 0-2 (0-2) /HPF Urine WBC 0-5 (0-5) /HPF Ur Squamous Epith Cells 0-2 (0-2) /HPF Urine Bacteria None Seen (None Seen) Hyaline Casts 0-2 (0-2) /LPF Independent Interpretation I performed an independent interpretation of an: CT Scan Radiology Impression Discussion of test interpretation with radiology: I have reviewed the radiologist's reading. Radiologist Impression: FINDINGS: LUNG BASES: There is scarring at the left lung base. LIVER, GALLBLADDER, AND BILIARY TREE: The liver is normal in size, shape, and attenuation. No focal hepatic lesion or biliary ductal dilatation is present. The gallbladder is distended. PANCREAS: Unremarkable. SPLEEN: Unremarkable. ADRENAL GLANDS: Unremarkable. KIDNEYS AND URETERS: The kidneys are normal in size, shape, and attenuation. No hydronephrosis, hydroureter, or calculi seen. No perinephric stranding. BLADDER: Unremarkable. GASTROINTESTINAL TRACT: The small and large bowel are unremarkable. The appendix is distended measures up to 1.1 cm containing mixed density stool-like material. There is no periappendiceal infiltration. ABDOMINAL WALL: No significant hernia is appreciated. LYMPH NODES: Normal. VASCULAR: Unremarkable. PELVIC VISCERA: Unremarkable. OSSEOUS STRUCTURES: There is mild diffuse thoracolumbar disc degenerative change. CT/CT abdomen pelvis w IV con IMPRESSION: 1. The appendix is distended up to 1.1 cm containing mixed density stool-like material. There is no periappendiceal infiltration. Clinical follow-up suggested. 2. The gallbladder is mildly distended of uncertain significance. Correlation is needed. COMPARISON: None available. TECHNIQUE: Real-time imaging of the right upper quadrant abdominal viscera. FINDINGS: GALLBLADDER: There is small amount of echogenic sludge but no echogenic stones seen. The gallbladder wall thickness is 0.36 cm and is within normal limits. No pericholecystic fluid collection. No pain in right upper quadrant on compression by probe. COMMON BILE DUCT: Normal in caliber measuring 0.5 cm in diameter. US/US abdomen limited IMPRESSION: Echogenic gallbladder sludge. No echogenic stone or wall thickening. Independent Historian Clinical information obtained from an independent historian. History obtained from or confirmed by: Spouse Medications Administered Discontinued Medications Generic Name Dose Route Start Last Admin Trade Name Freq PRN Reason Stop Dose Admin Sodium Chloride 1,000 mls @ 999 mls/hr 04/12/23 03:00 04/12/23 04:10 Ns IV 04/12/23 04:00 Infused .Q1H1M BARBARA Infusion Iohexol 85 ml 04/12/23 03:48 04/12/23 03:50 Iohexol 350 Mg/Ml 100 Ml Infus..Btl IV 04/12/23 03:49 85 ml ONCE ONE Administration Ketorolac Tromethamine 30 mg 04/12/23 03:52 04/12/23 04:00 Ketorolac Tromethamine 30 Mg/Ml Vial IVPUSH 04/12/23 03:53 30 mg ONCE ONE Administration Morphine Sulfate 4 mg 04/12/23 02:48 04/12/23 03:02 Morphine Sulfate 4 Mg/Ml Cartridge IVPUSH 04/12/23 02:49 4 mg ONCE ONE Administration Protocol Ondansetron HCl 4 mg 04/12/23 02:50 04/12/23 03:02 Ondansetron Hcl 4 Mg/2 Ml Vial IVPUSH 04/12/23 02:51 4 mg ONCE ONE Administration Critical Care Time Critical Care Time Critical Care Time: Yes Total Critical Care Time: 75 Attestation: I have personally provided critical care time. Time includes review of lab data, radiology results, discussion with consultants, and monitoring for potential decompensation. Intervention performed as documented. Discharge Plan Discharge Clinical Impression: Abdominal pain Patient Disposition: Home, Self-Care Instructions: Abdominal Pain (ED) Additional Instructions: Please follow-up with your primary care physician tomorrow. If you have any worsening or new symptoms, please return to the emergency room or call 911 Prescriptions: New ketorolac 10 mg tablet 10 mg PO TID PRN (Reason: pain) Qty: 10 0RF No Action furosemide 40 mg tablet 40 mg PO QAM glipizide 10 mg tablet 20 mg PO QAM cyanocobalamin (vitamin B-12) 1,000 mcg tablet 1,000 mcg PO QAM aspirin 81 mg tablet,delayed release (DR/EC) 81 mg PO QAM amlodipine 10 mg tablet 10 mg PO QPM metformin 1,000 mg tablet 1,000 mg PO QPM metoprolol succinate 25 mg tablet extended release 24 hr 25 mg PO QAM lisinopril 40 mg tablet 40 mg PO QAM rosuvastatin 10 mg tablet 10 mg PO QPM Referrals: Pati Ferreira MD [Physician] - 04/14/23
--- NOTE | 2023-04-12 03:06 | PC.NURSE ---
Iv, placed, labs collected, urine sent, medicated per jun.
--- NOTE | 2023-04-12 04:09 | PC.NURSE ---
pt medicated per mar.
[2023-04-12 05:33] VITALS: BP 143/66; PULSE 64; RESP 16; TEMP 36.3; O2SAT 96
== END 2023-04-12 07:29 | disposition home or self-care (01) ==
PROVIDERS: Emergency Provider Emergency Medicine; PCP Student in an Organized Health Care Education/Training Program
DX: R10.10 Upper abdominal pain, unspecified (principal); R11.2 Nausea with vomiting, unspecified; E11.9 Type 2 diabetes mellitus without complications; I10 Essential (primary) hypertension; Z79.82 Long term (current) use of aspirin; Z79.84 Long term (current) use of oral hypoglycemic drugs; Z79.899 Other long term (current) drug therapy
CPT/HCPCS: 36415; 74177; 76705; 80053; 81001; 83690; 84484; 85027; 93005; 96361; 96374; 96375; 99284; 99285; J1885; J2270; J2405; Q9967

== ENCOUNTER → 2023-04-12 02:57 | Outpatient (BNV) | payer MEDICARE, MEDICAID, SELFPAY | PROVIDERS: Emergency Provider Emergency Medicine; PCP Student in an Organized Health Care Education/Training Program; Visit Provider Internal Medicine Cardiovascular Disease | DX: I44.0 Atrioventricular block, first degree (principal); R94.31 Abnormal electrocardiogram [ECG] [EKG] | CPT/HCPCS: 93010 ==

== ENCOUNTER 2023-04-17 14:55 | Outpatient (REF) | payer MEDICARE, MEDICAID, SELFPAY ==
[2023-04-17 16:37] LABS: Alanine Aminotransferase 90 U/L (0-40); Albumin Level 4.4 g/dL (3.5-5.0); Alkaline Phosphatase 113 U/L (39-117); Aspartate Amino Transferase 19 U/L (5-37); Bilirubin Direct 0.2 mg/dL (0.0-0.5); Bilirubin Total 0.4 mg/dL (0.0-1.0); Blood Urea Nitrogen 15 mg/dL (9-16); Estimated Glomerular Filt Rate > 60; Total Protein 7.7 g/dL (6.5-8.0)
== END 2023-04-17 14:56 | disposition home or self-care (01) ==
LOC: HO.LAB 14:55
PROVIDERS: PCP Student in an Organized Health Care Education/Training Program; Visit Provider Surgery
DX: K82.8 Other specified diseases of gallbladder (principal)
CPT/HCPCS: 36415; 80076; 82565; 84520; 99202

== ENCOUNTER 2023-04-17 14:55 | Outpatient (AMB) | payer MEDICARE, MEDICAID, SELFPAY ==
--- NOTE | 2023-04-17 15:03 | MHC.OFFVIS ---
Intake Vital Signs 04/17/23 15:11 Height 5 ft 6 in Weight 209 lb BMI 33.7 Intake Visit Reasons: gallbladder sludge Intake Note: [place] [facility] [place] gallbladder sludge. Patient c/o; reports RUQ pain, reports nausea when GB attack starts, reports bloating. 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 He apparently went to the ER for abdominal pain last 04/12/2022. He had an ultrasound done showing gallbladder sludge without cholecystitis. His bilirubin was also mildly elevated at 1.5. His AST ALT were also elevated. His pain lasted for about 3 hours. He was discharged from the ER much improved. He has had no further episodes since then. He has good oral intake His history is however significant for a coarctation of the aorta. He had this repaired as a child multiple times. He eventually needed to have a stent placed for this about 4 years ago. The stent became infected and he was particularly ill about 8 months ago so he was sent to [place]. He underwent emergency surgery to he had a bypass procedure for his coarctation. He therefore had incision extending from the chest all the way to the abdomen. [facility] Medical History Sludge in gallbladder Diabetes HTN (hypertension) Coarctation of aorta Asthma Surgical History Status post aortic coarctation stent placement Social History Alcohol intake: current Alcohol intake frequency: holidays/special occasions only Substance Use Type: Marijuana Current occupational status: disabled Current occupation: right hand dominant Review of Systems Const Denies chills and Denies fever(s) Card Denies chest pain, Denies dyspnea and Denies dyspnea on exertion Resp Denies cough, Denies dyspnea and Denies dyspnea on exertion GI Denies hematochezia and Denies change in bowel habits Denies hematuria and Denies difficulty urinating Musc Denies back pain and Denies limited range of motion Neuro Denies focal weakness and Denies convulsions Psych Denies depression and Denies mood swings Physical Exam Const General: comfortable and no acute distress Orientation/consciousness: patient oriented x3 Neck Neck: Yes no lymphadenopathy Resp Auscultation: clear to auscultation bilaterally Cardio Rhythm: regular rhythm GI Other: No Nance's sign; long incision starting from the chest all the way to the abdomen Palpation (GI): Soft to palpation, nontender and no guarding Neuro General: patient oriented x3 Assessment & Plan Assessment & Plan (1) Sludge in gallbladder: Code(s): K82.8 - Other specified diseases of gallbladder Plan: He was in the ER for 1 episode of abdominal pain, mostly epigastric last April 12. His ultrasound showed only sludge. His bilirubin was slightly elevated I told him that I am going to repeat his LFTs. I will also check his CAT scan as stated that he has a long bypass graft in the aorta placed intra-abdominally. I will have to define his anatomy if we are to consider cholecystectomy. I told him that if we did cholecystectomy, this may most likely be an open procedure. He has had no further episodes of pain. I will see him again in the office after his CAT scan as well as his blood tests. He is comfortable with the plan. Orders: Orders Blood Urea Nitrogen Today K82.8 - Other specified diseases of gallbladder CT abdomen pelvis w IV con Today K82.8 - Other specified diseases of gallbladder Creatinine Today K82.8 - Other specified diseases of gallbladder Liver Panel Today K82.8 - Other specified diseases of gallbladder Coding Level of Care Code New Pt Level 3 (51602) Diagnoses Sludge in gallbladder K82.8
[2023-04-17 15:11] VITALS: BMI 33.7
== END 2023-04-17 15:32 | disposition home or self-care (01) ==
PROVIDERS: PCP Student in an Organized Health Care Education/Training Program; Visit Provider Surgery
DX: K82.8 Other specified diseases of gallbladder (principal)
CPT/HCPCS: 99203

== ENCOUNTER 2023-05-26 10:59 | Emergency (ER) | payer MEDICARE, MEDICAID, SELFPAY ==
--- NOTE | ~2023-05-26 | XR_ITS ---
Examination: Thoracic and lumbar spine. CLINICAL HISTORY: Mid back pain. COMPARISON: None. TECHNIQUE: Thoracic spine 3 views and lumbar spine 2 views. FINDINGS: Thoracic spine: There is normal thoracic kyphosis. The vertebral heights, alignment and disc heights are normal. There is mild ventral spondylosis throughout dorsal spine. No aggressive lytic or sclerotic process seen. There are median sternotomy sutures and mediastinal yamileth from previous intervention. Lumbar spine: There is normal lumbar lordosis. The vertebral heights and alignment is normal. There is moderate L2-L3 left bridging osteophyte. No aggressive lytic or sclerotic process seen. Paravertebral soft tissues are normal. XR/XR lumbar spine 2-3V IMPRESSION: 1. No acute fracture or dislocation in thoracic and lumbar spine. 2. There is mild ventral spondylosis throughout dorsal spine. No aggressive lytic or sclerotic process seen. Moderate bridging osteophyte left L2-L3 disc level.
--- NOTE | ~2023-05-26 | XR_ITS ---
Examination: Thoracic and lumbar spine. CLINICAL HISTORY: Mid back pain. COMPARISON: None. TECHNIQUE: Thoracic spine 3 views and lumbar spine 2 views. FINDINGS: Thoracic spine: There is normal thoracic kyphosis. The vertebral heights, alignment and disc heights are normal. There is mild ventral spondylosis throughout dorsal spine. No aggressive lytic or sclerotic process seen. There are median sternotomy sutures and mediastinal yamileth from previous intervention. Lumbar spine: There is normal lumbar lordosis. The vertebral heights and alignment is normal. There is moderate L2-L3 left bridging osteophyte. No aggressive lytic or sclerotic process seen. Paravertebral soft tissues are normal. XR/XR thoracic spine 3V IMPRESSION: 1. No acute fracture or dislocation in thoracic and lumbar spine. 2. There is mild ventral spondylosis throughout dorsal spine. No aggressive lytic or sclerotic process seen. Moderate bridging osteophyte left L2-L3 disc level.
--- NOTE | 2023-05-26 11:22 | ED_ITS ---
HPI - Back Pain/Injury General Chief Complaint: Back Pain/Injury Stated Complaint: Back pain Time Seen by Provider: 05/26/23 13:27 Source: patient Mode of arrival: ambulatory Limitations: no limitations History of Present Illness HPI Narrative: 57 year-old male with pmhx significant for DM, HTN, asthma, and chronic back pain presents to the ED today for eval of mid-back pain x3 days. Admits to having coughing fit 4 days ago where he felt the muscle along his left mid-back pull. Endorses localized pain since. Pain does not radiate down extremities. Has not been taking any OTC medications for this at home. He has been using warm patches without relief. Denies IVDU. Denies fever, chills, nausea vomiting, numbness/tingling/weakness of the extremities, saddle anesthesia, bowel or bladder incontinence or retention, dysuria, hematuria. Related Data Home Medications Medication Instructions Recorded Confirmed amlodipine 10 mg tablet 10 mg PO QPM blood pressure 08/24/22 04/09/23 aspirin 81 mg tablet,delayed 81 mg PO QAM 08/24/22 04/09/23 release cyanocobalamin (vitamin B-12) 1,000 mcg PO QAM 08/24/22 04/09/23 1,000 mcg tablet furosemide 40 mg tablet 40 mg PO QAM blood pressure 08/24/22 04/09/23 glipizide 10 mg tablet 20 mg PO QAM diabetes mellitus 08/24/22 04/09/23 lisinopril 40 mg tablet 40 mg PO QAM blood pressure 08/24/22 04/09/23 metformin 1,000 mg tablet 1,000 mg PO QPM diabetes mellitus 08/24/22 04/09/23 metoprolol succinate 25 mg 25 mg PO QAM blood pressure 08/24/22 04/09/23 tablet,extended release 24 hr rosuvastatin 10 mg tablet 10 mg PO QPM cholesterol 08/24/22 04/09/23 Previous Rx's Medication Instructions Recorded ketorolac 10 mg tablet 10 mg PO TID PRN pain #10 tabs 04/12/23 cyclobenzaprine 5 mg tablet 5 mg PO BEDTIME PRN muscle spasm 05/26/23 #10 tabs Allergies Allergy/AdvReac Type Severity Reaction Status Date / Time Penicillins Allergy Mild RASH Verified 05/26/23 11:23 lisinopril Allergy Unknown Unknown Verified 05/26/23 11:23 penicillin V Allergy Unknown Rash Verified 05/26/23 11:23 Review of Systems Review of Systems: Constitutional: No fever, chills, fatigue, night sweats, weight changes ENT/Mouth: No ear pain, hearing loss, nasal congestion, sinus pain, rhinorrhea, sore throat Eyes: No eye pain, swelling, redness, vision changes, discharge Cardio: No chest pain, palpitations, WILSON, orthopnea, peripheral edema Pulm: No SOB, cough, sputum, wheezing, dyspnea, hemoptysis GI: No nausea, vomiting, hematemesis, abdominal pain, diarrhea, constipation, hematochezia, melena : No irregular bleeding, dysuria, frequency, urgency, hesitancy, hematuria, flank pain, urinary flow changes, urinary incontinence or retention MSK: +back pain, No neck pain, joint pain, myalgias Skin: No lesions, rashes Neuro: No weakness, numbness, paresthesias, LOC, dizziness, headache All other systems reviewed and are negative. [facility] Past Medical History Attestation statement: The following information was validated with the patient. Source: old records reviewed and nursing notes reviewed Medical History Sludge in gallbladder Diabetes HTN (hypertension) Coarctation of aorta Asthma Surgical History Status post aortic coarctation stent placement Social History Social History Alcohol intake: current Alcohol intake frequency: holidays/special occasions only Substance Use Type: Marijuana Advance Directives: No Advance Directives Information Provided: Yes Current occupational status: disabled Current occupation: right hand dominant Physical Exam 2 Vital Signs: Vital Signs: Last Vital Signs Temp 97.3 F 05/26/23 11:23 Pulse 82 05/26/23 13:20 Resp 18 05/26/23 11:23 BP 124/71 05/26/23 13:20 Pulse Ox 98 05/26/23 13:20 O2 Del Method Room Air 05/26/23 13:20 BMI result Body Mass Index 34.9 Vital signs stable, afebrile Const: General: cooperative, healthy appearing, comfortable, no acute distress, alert, awake and Physically active Orientation/consciousness: patient oriented x3 HEENT: Head: Yes normal to inspection, Yes normocephalic and Yes atraumatic Eyes: General: appearance normal, both eyes and all related structures Pupils: Equal, round and reactive pupils present EOM: EOMs intact bilaterally Neck: Other: + no cervical midline spinous tenderness or step-off deformity. Neck: Yes normal visual inspection, Yes full ROM and Yes no meningeal signs Resp: Effort & Inspection: normal respiratory effort Auscultation: clear to auscultation bilaterally Cardio: Rate: regular rate Rhythm: regular rhythm GI: Inspection: Yes normal to inspection Palpation (GI): Soft to palpation and nontender : General: Yes no CVA tenderness Back/Spine/Pelvis: Other: + left paraspinal muscle tenderness to p alpation over T12-L1. No midline spinous tenderness or step-off deformity. Back: no CVA tenderness Neuro: Other: Strength 5/5 intact throughout.? No saddle anesthesia.? Sensation intact to light touch.? Neurovascular intact distally.? General: patient oriented x3, gait normal and no meningeal signs Cranial nerves: Yes Equal, round and reactive pupils present Gait exam (Neuro): Normal gait present Motor exam (neuro): 5/5 motor strength present throughout Deep tendon reflexes (DTR's): Right patellar reflex intensity grade: 2+ and Left patellar reflex intensity grade: 2+ Pupils: Normal pupillary reactivity/response: bilateral Course Course Course Narrative: RME: 57 year-old M w/ PMHx DM, HTN, Asthma, presenting to the ED c/o low back pain s/p coughing fit 4 days ago, worsening. using warm patches at home w/o relief. denies pain radiating down legs or incontinence or retention Ambulating w/guarded gait XRs ordered, will need pain control Full HPI, ROS and PE to be performed by primary ED provider. Reevaluation(s) Reevaluation #1: 1341-- x-rays of thoracic spine show mild ventral spondylosis throughout dorsal spine without aggressive lytic or sclerotic processes. On x-ray of lumbar spine there is moderate bridging osteophyte at left L2-L3 disc level. Overall there are no acute fractures or dislocations appreciated in thoracic or lumbar spine. Based on physical exam findings, presentation is most consistent with muscle strain. Will order flexeril, tylenol, and lido patch > plan for re-evaluation. Patient confirms that since he will be taking Flexeril his friend will be driving him home. 1430-- Patient endorses improvement in pain with flexeril and tylenol. ambulation improved. Will send flexeril home with patient. Discussed worrisome signs and symptoms and when to return to the ED. all questions answered at this time. Patient has remained stable throughout ED visit today. He is agreeable with disposition and stable for discharge. Medications Administered Discontinued Medications Generic Name Dose Route Start Last Admin Trade Name Freq PRN Reason Stop Dose Admin Acetaminophen 975 mg 05/26/23 13:49 05/26/23 13:57 Acetaminophen 325 Mg Tablet PO 05/26/23 13:50 975 mg ONCE ONE Administration Cyclobenzaprine HCl 10 mg 05/26/23 13:48 05/26/23 13:57 Cyclobenzaprine Hcl 10 Mg Tablet PO 05/26/23 13:49 10 mg ONCE ONE Administration Lidocaine 1 patch 05/26/23 13:48 05/26/23 14:06 Lidocaine 4 % Patch Adh..Patch TRANSDERMA 05/26/23 13:49 Not Given ONCE ONE Protocol Medical Decision Making Medical Decision Making MDM Narrative: 57 year-old male with pmhx significant for DM, HTN, asthma, and chronic back pain presents to the ED today for eval of mid-back pain x3 days. Vital signs WNL. Patient is nontoxic-appearing and in no acute distress. On exam, there is tenderness to palpation of the left spinal muscles correlating to T12-L1. No midline spinous tenderness or step-off deformity. Sensation intact throughout. Strength 5/5 intact throughout. No saddle anesthesia. Ambulating with guarded gait. No CVAT bilaterally. NV intact distally.Concern for MSK sprain/strain, fracture, subluxation, disc herniation, sciatica. Unlikely cord compression, cauda equina, Guillain-Garfield, epidural abscess. Plan for imaging and pain control. Differential Diagnosis Differential Diagnoses: The differential diagnosis associated with the presentation includes as above. Admission/Observation Not indicated. Independent Interpretation I performed an independent interpretation of an: Plain X-Ray Interpretation: I personally reviewed x-rays and agree with radiologist's interpretation. Radiology Impression Discussion of test interpretation with radiology: I have reviewed the radiologis t's reading. Radiologist Impression: XR thoracic spine 3V IMPRESSION: 1. No acute fracture or dislocation in thoracic and lumbar spine. 2. There is mild ventral spondylosis throughout dorsal spine. No aggressive lytic or sclerotic process seen. Moderate bridging osteophyte left L2-L3 disc level. External Record Review External record reviewed: Inpatient record, Office record, Outpatient record, Prior outpatient labs, Prior outpatient radiology, Primary care record and Outside ED record Prescription Management I considered prescription management with: Pain Medication and Other (Muscle relaxer, steroid) Chronic Conditions Patient?s care impacted by: Other (chronic back pain, disc herniation) Social Determinants Patient?s care significantly limited by Social Determinants of Health including: Other Social Determinant of Health Discharge Plan Discharge Clinical Impression: Strain of lumbar spine Patient Disposition: Home, Self-Care Instructions: Low Back Strain (ED), Acute Low Back Pain (ED), Lower Back Exercises (ED) Additional Instructions: The xrays of your thoracic and lumbar spine show degenerative, arthritic changes. There is no fracture. Your pain is likely musculoskeletal. Avoid bending, lifting, or twisting. Use ice several times per day for 20 minutes at a time for the next 48 hours and then change to heat. Flexeril is a muscle relaxer. Take this at night as it makes you drowsy. Do not drive, drink alcohol, or operate machinery while taking it. In addition take Tylenol at home. Follow up with your primary care provider as needed. If your pain worsens, if you develop new numbness, tingling, weakness, loss of bowel or bladder function call 911 or return to the ER immediately for evaluation. Prescriptions: New cyclobenzaprine 5 mg tablet 5 mg PO BEDTIME PRN (Reason: muscle spasm) Qty: 10 0RF No Action furosemide 40 mg tablet 40 mg PO QAM glipizide 10 mg tablet 20 mg PO QAM cyanocobalamin (vitamin B-12) 1,000 mcg tablet 1,000 mcg PO QAM aspirin 81 mg tablet,delayed release (DR/EC) 81 mg PO QAM amlodipine 10 mg tablet 10 mg PO QPM metformin 1,000 mg tablet 1,000 mg PO QPM metoprolol succinate 25 mg tablet extended release 24 hr 25 mg PO QAM lisinopril 40 mg tablet 40 mg PO QAM rosuvastatin 10 mg tablet 10 mg PO QPM ketorolac 10 mg tablet 10 mg PO TID PRN (Reason: pain) Qty: 10 0RF Referrals: Celia Torres MD [Primary Care Provider] - Stand Alone Forms: Work/School Release
[2023-05-26 11:23] VITALS: BP 122/81; PULSE 96; RESP 18; TEMP 36.3; O2SAT 97; BMI 34.9
[2023-05-26 13:20] VITALS: BP 124/71; PULSE 82; O2SAT 98
[2023-05-26] MEDS: Cyclobenzaprine HCl 10 MG TABLET PO (13:57)
[2023-05-26] MEDS: Acetaminophen 325 MG TABLET 975 MG PO (13:57)
== END 2023-05-26 14:30 | disposition home or self-care (01) ==
PROVIDERS: Emergency Provider Emergency Medicine; PCP Student in an Organized Health Care Education/Training Program
DX: M54.50 Low back pain, unspecified (principal); R05.9 Cough, unspecified; M79.605 Pain in left leg; M79.604 Pain in right leg; M54.6 Pain in thoracic spine
CPT/HCPCS: 72072; 72100; 99283; 99284

== ENCOUNTER 2023-05-27 10:14 | Outpatient (AMB) | payer MEDICARE, MEDICAID, SELFPAY ==
--- NOTE | 2023-05-27 10:18 | MHC.OFFVIS ---
Intake Vital Signs 05/27/23 10:19 Height 5 ft 6 in Weight 216 lb BMI 34.9 BP 138/76 Blood Pressure Location Lt brachial Position Sitting Pulse 79 Pulse Source Pulse Oximeter Pulse Oximetry (%) 97 Oxygen Delivery Method Room Air Intake Visit Reasons: Cough Injection Molding Machine Setter Required: No Court Bailiff Or Sheriff: Court Bailiff Or Sheriff offered & declined Accompanied by: Self / Same As Patient Allergies Penicillins Allergy (Mild, Verified 05/27/23 10:24) RASH lisinopril Allergy (Unknown, Verified 05/27/23 10:24) Unknown penicillin V Allergy (Unknown, Verified 05/27/23 10:24) Rash Medication List - Last Reconciled 05/27/23 by Erika Day LPN albuterol sulfate 90 mcg/actuation 2 puffs inhalation Q4-6H PRN amlodipine 10 mg PO QPM aspirin 81 mg PO QAM cyanocobalamin (vitamin B-12) 1,000 mcg PO QAM cyclobenzaprine 5 mg PO BEDTIME PRN furosemide 40 mg PO QAM glipizide 20 mg PO QAM ketorolac 10 mg PO TID PRN losartan 100 mg PO DAILY metformin 1,000 mg PO QPM metoprolol succinate ER 25 mg PO QAM rosuvastatin 10 mg PO QPM HPI Cough HPI Details David is a pleasant 57 year old male, former smoker with approximately 20 pack year history, quit 1992, with underlying asthma and aortic coarctation (repaired multiple times since childhood) s/p TEVAR which was complicated by MSSA infection in August 2022 s/p left upper lobectomy and left lower lobe superior segment wedge resection, maintained on suppressive keflex 500 mg BID, per [facility] ID, indefinitely. He was referred by PCP for pulmonary evaluation. He reports chronic productive cough with green sputum since undergoing aortic repair. He also reports associated chest tightness and wheezing, minimally relieved by albuterol. He denies post nasal drip. He denies seasonal allergies. He is under the care of cardiology at [facility]. He denies any occupational exposures. He denies any pertinent family history. [facility] Medical History (Updated 05/27/23 @ 19:41 by Obdulia Restrepo NP) Sludge in gallbladder Diabetes HTN (hypertension) Coarctation of aorta Asthma Surgical History (Updated 05/27/23 @ 20:03 by Obdulia Restrepo NP) Status post aortic coarctation stent placement Social History (Updated 05/27/23 @ 10:35 by Erika Day LPN) Alcohol intake: current Alcohol intake frequency: holidays/special occasions only Patient Tobacco Use Status: Former Tobacco user Cigarette Packs Per Day: 0.5 Years Smoked: 5 Substance Use Type: Marijuana Current occupational status: disabled Current occupation: right hand dominant Review of Systems Const Denies chills, Denies excessive sweating, Denies fever(s), Denies headache(s) and Denies night sweats Eyes Denies dry eyes, Denies irritation and Denies itchy eyes ENT Reports Normal hearing present, Denies headache(s), Denies nasal congestion, Denies nasal discharge, Denies post nasal drip and Denies sore throat Card Denies chest pain, Denies chest pain at rest, Denies chest pain with activity, Denies claudication, Denies leg edema, Denies orthopnea and Denies paroxysmal nocturnal dyspnea Resp Denies excessive phlegm production, Denies pain on inspiration, Denies pain with cough and Denies stridor Musc Denies myalgias Neuro Reports Normal hearing present and Denies headache(s) Endo Denies excessive sweating Otto/Lymph Denies lymphadenopathy Aller/Immun Denies itchy eyes and Denies seasonal rhinorrhea Physical Exam Vital Signs: Last Vital Signs Pulse 79 05/27/23 10:19 BP 138/76 05/27/23 10:19 Pulse Ox 97 05/27/23 10:19 Oxygen Delivery Method Room Air 05/27/23 10:19 BMI result Body Mass Index 34.9 Const General: cooperative, healthy appearing, comfortable, no acute distress, well developed and alert Nutritional Appearance: obese Orientation/consciousness: patient oriented x3 Limitations: no limitations HEENT Head: Yes normal to inspection, Yes normocephalic and Yes atraumatic Ears: hearing grossly normal bilaterally and external ears normal Eyes General: appearance normal, both eyes and all related structures Eyelids: Yes eyelids normal Sclerae: sclerae normal EOM: EOMs intact bilaterally Neck Neck: Yes normal visual inspection and Yes no lymphadenopathy Lymphatic: no lymphadenopathy noted Chest Chest palpation & inspection: normal inspection of the chest Resp Effort & Inspection: normal respiratory effort, able to speak in complete sentences, no audible wheezes, no cough, no stridor, not tachypneic, no tripod positioning and no use of accessory muscles Auscultation: diminished lung sounds Cardio Jugular venous distension: no JVD Rate: regular rate Rhythm: regular rhythm Skin Other: warm, dry General skin exam: no rashes or lesions noted Neuro General: patient oriented x3 Cranial nerves: Yes Normal hearing present Cognition (Neuro): normal cognition Gait exam (Neuro): Normal gait present Extrem General: Yes normal to inspection, Yes capillary refill normal, Yes no clubbing, cyanosis or edema and Yes no pedal edema Psych Appearance: grossly normal and well kempt Speech and movement: Normal speech and movement present and Clear speech present Affect: normal affect Attitude: cooperative Thought process: Normal thought process present Thought content: Normal thought content present Insight: Good insight present (Psych) Judgement: Good judgement present (Psych) Results Reviewed Results Reviewed: Assessment & Plan Assessment & Plan (1) Chronic cough: Code(s): R05.3 - Chronic cough (2) Asthma: Code(s): J45.909 - Unspecified asthma, uncomplicated (3) Status post partial lobectomy of lung: Code(s): Z90.2 - Acquired absence of lung [part of] Plan David'renny has a complex medical history with prior MSSA bactremia s/p JOSE lobectomy and left lower lobe superior segment wedge resection on suppressive keflex indefinitely. Will send for PFT to assess severity of obstructive/restrictive defect and send for chest CT for chronic cough. Will empirically trial symbicort. Reviewed inhaler technique and importance of oral hygiene. For the bronchitic symptoms, given patient is on chronic keflex, order entered for sputum culture. Will discuss results and treat after consulting ID, if needed. All questions were answered and patient is in agreement of plan. Will follow up to review results and response to inhaler or sooner if needed. Orders: Orders Sputum Cult + Gram stain Today R05.3 - Chronic cough CT chest wo IV con Today R05.3 - Chronic cough PFT pulmonary function test Today J45.909 - Unspecified asthma, uncomplicated Medications: New budesonide-formoterol 80-4.5 mcg/actuation (Symbicort) 2 puffs inhalation Q12H 10.2 grams 3RF Coding Level of Care Code New Pt Level 4 (70839) Diagnoses Chronic cough R05.3 Asthma J45.909 Status post partial lobectomy of lung Z90.2
[2023-05-27 10:19] VITALS: BP 138/76; PULSE 79; O2SAT 97; BMI 34.9
--- NOTE | 2023-05-27 10:32 | A.OFFVIS_ITS ---
Intake Vital Signs 05/27/23 10:19 Height 5 ft 6 in Weight 216 lb BMI 34.9 BP 138/76 Blood Pressure Location Lt brachial Position Sitting Pulse 79 Pulse Source Pulse Oximeter Pulse Oximetry (%) 97 Oxygen Delivery Method Room Air Intake Visit Reasons: Cough Client Care Representative Required: No Airborne Operations Superintendent: Airborne Operations Superintendent offered & declined Allergies Penicillins Allergy (Mild, Verified 05/27/23 10:24) RASH lisinopril Allergy (Unknown, Verified 05/27/23 10:24) Unknown penicillin V Allergy (Unknown, Verified 05/27/23 10:24) Rash Medication List - Last Reconciled 05/27/23 by Erika Day LPN albuterol sulfate 90 mcg/actuation 2 puffs inhalation Q4-6H PRN amlodipine 10 mg PO QPM aspirin 81 mg PO QAM cyanocobalamin (vitamin B-12) 1,000 mcg PO QAM cyclobenzaprine 5 mg PO BEDTIME PRN furosemide 40 mg PO QAM glipizide 20 mg PO QAM ketorolac 10 mg PO TID PRN losartan 100 mg PO DAILY metformin 1,000 mg PO QPM metoprolol succinate ER 25 mg PO QAM rosuvastatin 10 mg PO QPM PFSH Medical History Sludge in gallbladder Diabetes HTN (hypertension) Coarctation of aorta Asthma Surgical History Status post aortic coarctation stent placement Social History (Updated 05/27/23 @ 10:35 by Erika Day LPN) Alcohol intake: current Alcohol intake frequency: holidays/special occasions only Patient Tobacco Use Status: Former Tobacco user Cigarette Packs Per Day: 0.5 Years Smoked: 5 Substance Use Type: Marijuana Current occupational status: disabled Current occupation: right hand dominant Physical Exam Vital Signs: Last Vital Signs Pulse 79 05/27/23 10:19 BP 138/76 05/27/23 10:19 Pulse Ox 97 05/27/23 10:19 Oxygen Delivery Method Room Air 05/27/23 10:19 BMI result Body Mass Index 34.9 Quality Reporting (2019) Adult ([facility] 138/2/22/69) Body Mass Index: 34.9 Coding
== END 2023-05-27 10:57 | disposition home or self-care (01) ==
PROVIDERS: PCP Student in an Organized Health Care Education/Training Program; Referring Provider Emergency Medicine; Visit Provider Nurse Practitioner Family
DX: R05.3 Chronic cough (principal); J45.909 Unspecified asthma, uncomplicated; Z90.2 Acquired absence of lung [part of]
CPT/HCPCS: 99204

== ENCOUNTER 2023-05-27 10:14 | Outpatient (REF) | payer MEDICARE, MEDICAID, SELFPAY | END 2023-05-27 10:15 | disposition home or self-care (01) | LOC: HO.LNP 10:14 | PROVIDERS: PCP Student in an Organized Health Care Education/Training Program; Referring Provider Emergency Medicine; Visit Provider Nurse Practitioner Family | DX: J45.909 Unspecified asthma, uncomplicated (principal); Z90.2 Acquired absence of lung [part of]; Z87.891 Personal history of nicotine dependence; Z79.899 Other long term (current) drug therapy | CPT/HCPCS: 99202 ==

== ENCOUNTER 2023-05-30 08:18 | Outpatient (REF) | payer MEDICARE, MEDICAID, SELFPAY ==
--- NOTE | ~2023-05-30 | CT_ITS ---
EXAMINATION: CT ABDOMEN AND PELVIS WITH CONTRAST CLINICAL INFORMATION: Gallbladder COMPARISON: 04/12/2023 TECHNIQUE: Multidetector volumetric images were obtained from the superior aspect of the liver through the pubic symphysis following administration 85 mL of Omnipaque 350 intravenous contrast. Sagittal and coronal reformatted images were obtained on the technologist's workstation. Oral contrast: No This CT examination was performed using dose optimization techniques as appropriate, variously including the following: *Automated exposure control *Adjustment of mA and/or kV according to patient size (this includes techniques or standardized protocols for targeted exams where dose is matched to indication/reason for exam; i.e. extremities or head) *Use of iterative reconstruction technique DLP: 754 mGy-cm FINDINGS: LUNG BASES: Please see separately dictated same date chest CT for pulmonary findings. ABDOMINAL AND PELVIC WALL: Bilateral fat-containing inguinal hernias. LIVER AND BILIARY TREE: Unremarkable. GALLBLADDER: Unremarkable. PANCREAS: Unremarkable. SPLEEN: Unremarkable. ADRENAL GLANDS: Unremarkable. KIDNEYS AND URETERS: Unremarkable. GASTROINTESTINAL TRACT: Unremarkable. Redemonstration of appendix which is decreased in size measuring up to 7 mm in diameter without periappendiceal inflammatory changes or hyperemia. VASCULAR: Unremarkable. LYMPH NODES/PERITONEUM: No lymphadenopathy. FREE FLUID: None. BLADDER: Unremarkable. PELVIC VISCERA: Prostatomegaly is unchanged. OSSEOUS STRUCTURES: Degenerative changes of the lumbar spine. CT/CT abdomen pelvis w IV con IMPRESSION: * No acute intra-abdominal abnormality. * Redemonstration of appendix which is decreased in size measuring up to 7 mm in diameter without periappendiceal inflammatory changes or hyperemia.
--- NOTE | ~2023-05-30 | CT_ITS ---
EXAMINATION: CT CHEST WITHOUT CONTRAST CLINICAL INFORMATION: Chronic cough COMPARISON: 08/24/2022 TECHNIQUE: Multidetector volumetric CT imaging of the chest was done. Axial MIP volume rendering provided. Sagittal and coronal reformatted images were obtained. This CT examination was performed using dose optimization techniques as appropriate, variously including the following: *Automated exposure control *Adjustment of mA and/or kV according to patient size (this includes techniques or standardized protocols for targeted exams where dose is matched to indication/reason for exam; i.e. extremities or head) *Use of iterative reconstruction technique DLP: 300 mGy-cm FINDINGS: LUNGS: Interval left upper lobectomy with consolidation. Left lower lobe is clear. Left lung base platelike atelectasis. Scattered sub-3 mm nodules in the right lung are similar to prior study no new or enlarging pulmonary nodule. Central airways are patent. PLEURA: No pleural effusion. MEDIASTINUM: No cardiomegaly. Aorta and pulmonary artery are normal in caliber. Interval removal of previously seen aortic stent graft no mediastinal adenopathy. Leftward midline shift of the mediastinum and volume loss of the left lung. Lack of IV contrast limits fashion for hilar adenopathy. CORONARY ARTERY CALCIFICATION: No coronary artery calcification appreciated. CHEST WALL/AXILLA: No axillary or internal mammary lymphadenopathy. UPPER ABDOMEN: Unremarkable. OSSEOUS STRUCTURES: Degenerative changes of the spine. CT/CT chest wo IV con IMPRESSION: * Interval left upper lobectomy with consolidation and volume loss of the left lung. No new or enlarging pulmonary nodule. * Interval removal of previously seen aortic stent graft. * Lack of IV contrast limits fashion for hilar adenopathy.
[2023-05-30] MEDS: iohexoL 350 MG/ML 100 ML INFUS..BTL 85 ML IV (08:54)
[2023-06-02 09:52] LABS: Creatinine POC 0.8 mg/dL (0.5-1.4); GFR POC > 60
== END 2023-05-30 08:19 | disposition home or self-care (01) ==
LOC: HO.CT 08:18
PROVIDERS: Visit Provider Surgery
DX: R05.3 Chronic cough (principal); K82.8 Other specified diseases of gallbladder
CPT/HCPCS: 71250; 74177; 82565; Q9967

== ENCOUNTER 2023-06-18 09:26 | Outpatient (AMB) | payer MEDICARE, MEDICAID, SELFPAY ==
--- NOTE | 2023-06-18 09:29 | A.OFFVIS_ITS ---
Intake Vital Signs 06/18/23 09:34 Height 5 ft 6 in Weight 221 lb BMI 35.7 BP 176/77 H Blood Pressure Location Rt brachial Position Sitting Pulse 73 Intake Visit Reasons: Ct-Scan results Intake Note: This patient presents for an assessment to discuss CT-Scan results. Pt c/o; reports feeling anxious about surgery. 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 because of findings of gallbladder sludge on ultrasound. He had been to the ER at that time because of abdominal pain. He has had no further episodes of abdominal pain since then. He says he feels well overall. He denies any problems with oral intake He has a complex history of coarctation of the aorta and has had multiple surgeries for this including via an abdominal approach. [facility] Medical History Sludge in gallbladder Diabetes HTN (hypertension) Coarctation of aorta Asthma Surgical History Status post aortic coarctation stent placement Social History Alcohol intake: current Alcohol intake frequency: holidays/special occasions only Patient Tobacco Use Status: Former Tobacco user Cigarette Packs Per Day: 0.5 Years Smoked: 5 Substance Use Type: Marijuana Current occupational status: disabled Current occupation: right hand dominant Review of Systems Const Denies chills and Denies fever(s) Card Denies chest pain, Denies dyspnea and Denies dyspnea on exertion Resp Denies cough, Denies dyspnea and Denies dyspnea on exertion GI Denies hematochezia and Denies change in bowel habits Denies hematuria and Denies difficulty urinating Musc Denies back pain and Denies limited range of motion Neuro Denies focal weakness and Denies convulsions Psych Denies depression and Denies mood swings Physical Exam Vital Signs: Last Vital Signs Pulse 73 06/18/23 09:34 BP 176/77 H 06/18/23 09:34 BMI result Body Mass Index 35.7 Const General: comfortable and no acute distress Resp Effort & Inspection: normal respiratory effort Cardio Rate: regular rate GI Other: Long midline surgical scar extending the chest Palpation (GI): Soft to palpation, not firm, nontender and no guarding Assessment & Plan Assessment & Plan (1) Sludge in gallbladder: Code(s): K82.8 - Other specified diseases of gallbladder Plan: His CAT scan does not reveal any intra-abdominal pathology. There is no evidence of any gallbladder disease. He is previous ultrasound did show gallbladder sludge. However, he has remained asymptomatic for the past 2 months. He denies any pain, or tenderness and feels well overall. He denies GI complaints. He has good oral intake. As long as remains symptomatic, I told him that we may be able to avoid surgical intervention for his history of gallbladder sludge. He has had multiple surgeries including in the abdomen for coarctation of the aorta so this should be considered with regards to his perioperative risks He agrees with the plan and states that he wants to avoid any further surgeries as much as possible. I can see him in the office on a p.r.n. basis. Coding Level of Care Code Est Pt Level 3 (96401) Diagnoses Sludge in gallbladder K82.8
[2023-06-18 09:34] VITALS: BP 176/77; PULSE 73; BMI 35.7
== END 2023-06-18 09:47 | disposition home or self-care (01) ==
PROVIDERS: PCP Student in an Organized Health Care Education/Training Program; Visit Provider Surgery
DX: K82.8 Other specified diseases of gallbladder (principal)
CPT/HCPCS: 99213

== ENCOUNTER → 2023-06-18 09:26 | Outpatient (BNVA) | payer MEDICARE, MEDICAID, SELFPAY | PROVIDERS: PCP Student in an Organized Health Care Education/Training Program; Visit Provider Surgery | DX: K82.8 Other specified diseases of gallbladder (principal) | CPT/HCPCS: 99212 ==

== ENCOUNTER 2023-07-08 08:02 | Outpatient (AMB) | payer MEDICARE, MEDICAID, SELFPAY ==
--- NOTE | 2023-07-08 08:04 | A.OFFVIS_ITS ---
Intake Vital Signs 07/08/23 08:05 Height 5 ft 6 in Weight 221 lb BMI 35.7 Intake Visit Reasons: OV-Left Shoulder pain-injection if needed Intake Note: David is a 58 year old Right hand dominate male who presents with Left shoulder pain and weakness. He has had injections in the past which gave him minimal relief. He has also done physical therapy exercises which aggravated his pain. He has tried Tylenol and anti-inflammatory medicines which gave him minimal relief. The patient reports weakness when lifting his left hand above shoulder height. Allergies Penicillins Allergy (Mild, Verified 07/08/23 08:09) RASH lisinopril Allergy (Unknown, Verified 07/08/23 08:09) Unknown penicillin V Allergy (Unknown, Verified 07/08/23 08:09) Rash [facility] Medical History Sludge in gallbladder Diabetes HTN (hypertension) Coarctation of aorta Asthma Surgical History Status post aortic coarctation stent placement Social History Alcohol intake: current Alcohol intake frequency: holidays/special occasions only Patient Tobacco Use Status: Former Tobacco user Cigarette Packs Per Day: 0.5 Years Smoked: 5 Substance Use Type: Marijuana Current occupational status: disabled Current occupation: right hand dominant Physical Exam Vital Signs: BMI result Body Mass Index 35.7 Const Other: Well-nourished well-developed very friendly male awake alert and oriented x3 in no acute distress Extrem Other: Bilateral upper extremity examination shows good capillary refill, no skin lesions noted, normal sensation light touch Left shoulder examination shows decreased range of motion when compared to his right shoulder, 4+ out of 5 strength with supraspinatus testing, positive impingement signs, tenderness over his acromioclavicular joint, no instability Office Procedures Joint Injection/Drain Joint Injection/Drain Primary Site: left shoulder Prep: site was prepped using aseptic technique Injected: 40 mg of, DepoMedrol and 1% plain lidocaine Procedure: The patient tolerated the procedure well Coding 51329 - Large joint Procedure code (CPT) selection complete Assessment & Plan Assessment & Plan (1) Left shoulder pain: Code(s): M25.512 - Pain in left shoulder Plan Mr. Thompson Nieves presents with left shoulder pain and weakness due to impingement syndrome, acromioclavicular joint arthritis and possible full-thickness rotator cuff tearing. The risks and benefits of a left shoulder cortisone injection were discussed at length with the patient. The patient wished to proceed. He tolerated the injection well. I will also send the patient for an MRI of his left shoulder to further evaluate the status of his rotator cuff tendons. I will see him back once the MRI is completed to discuss the findings and treatment options. Feel free to call me at any time should questions regarding his orthopedic management arise. I spent 22 minutes in reviewing the patient's records and imaging studies, seeing the patient and documenting in the medical record. Orders: Orders MR shoulder LT wo con Today M75.122 - Complete rotator cuff tear or rupture of left shoulder, not specified as traumatic AMB Joint Injection/Aspiration Today M25.512 - Pain in left shoulder Coding Level of Care Code Est Pt Level 2 (90420) Diagnoses Left shoulder pain M25.512 CPT Codes Coding - 62225 Large joint: 38543 - Large joint ([id number])
[2023-07-08 08:05] VITALS: BMI 35.7
== END 2023-07-08 08:29 | disposition home or self-care (01) ==
PROVIDERS: PCP Student in an Organized Health Care Education/Training Program; Visit Provider Orthopaedic Surgery
DX: M25.512 Pain in left shoulder (principal)
CPT/HCPCS: 20610; 99214

== ENCOUNTER → 2023-07-08 08:02 | Outpatient (BNVA) | payer MEDICARE, MEDICAID, SELFPAY | PROVIDERS: PCP Student in an Organized Health Care Education/Training Program; Visit Provider Orthopaedic Surgery | DX: M25.512 Pain in left shoulder (principal) | CPT/HCPCS: 20610; 99212; J1010; J1020 ==

== ENCOUNTER 2023-07-09 10:57 | Outpatient (REF) | payer MEDICARE, MEDICAID, SELFPAY ==
--- NOTE | ~2023-07-09 | CT_ITS ---
EXAMINATION: CT CHEST WITH CONTRAST CLINICAL INFORMATION: Chronic cough COMPARISON: Previous chest CT scans most recent May 2023 TECHNIQUE: Multidetector volumetric CT imaging of the chest was obtained after the administration of 65 mL of Omnipaque 350 intravenous contrast without immediate adverse reactions. Axial MIP volume rendering provided. Sagittal and coronal reformatted images were obtained. This CT examination was performed using dose optimization techniques as appropriate, variously including the following: *Automated exposure control *Adjustment of mA and/or kV according to patient size (this includes techniques or standardized protocols for targeted exams where dose is matched to indication/reason for exam; i.e. extremities or head) *Use of iterative reconstruction technique DLP: 311 mGy-cm FINDINGS: LUNGS: There are new postsurgical changes left upper lobe lobectomy. There is residual left apical pleural thickening and small amount of fluid. There is subsegmental atelectasis or linear scarring at the left lung base and in the left lower lobe extending to the diaphragmatic surface. The right lung is clear. MEDIASTINUM: The distal aortic arch and proximal and mid descending thoracic aorta appear to have been resected. There is a new bypass from the right side of the ascending thoracic aorta coursing along the right heart border anastomosing to the remaining descending thoracic aorta. The right brachiocephalic and common carotid arteries are patent. 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 There is a left common carotid to left subclavian artery bypass graft that is patent and appears unchanged. The heart does not appear enlarged. There is no pericardial effusion. There is mild coronary artery and aortic valve calcification. There are small mediastinal lymph nodes. No enlarged lymph nodes are seen. PLEURA: Left apical pleural thickening/small amount of fluid. This contains a small amount of air. Question postoperative change or focus of residual infection uncertain. AXILLA: No lymphadenopathy. UPPER ABDOMEN: The liver OSSEOUS STRUCTURES: Surgical changes to multiple left upper ribs. Question postsurgical change versus fracture of the left posterior seventh rib near the articulation with the transverse process. Ununited median sternotomy. Degenerative changes of the spine. CT/CT chest w IV con IMPRESSION: Left upper lobe lobectomy. Left apical pleural thickening/small amount of fluid. This contains a small amount of air. Either this represents postoperative change or focus of residual infection. Comparison with more recent post operative chest CT would be helpful. Subsegmental atelectasis in the left lower lobe. Surgical changes to the distal aortic arch and proximal and mid descending thoracic aorta with new ascending to descending thoracic aorta bypass. 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 Question postsurgical change versus fracture of the left posterior seventh rib near the articulation with the transverse process. Fleischner guidelines were followed. Findings will be communicated by the [facility] can runner
[2023-07-09] MEDS: iohexoL 350 MG/ML 100 ML INFUS..BTL IV (11:55)
[2023-07-09 16:44] LABS: Creatinine POC 0.8 mg/dL (0.5-1.4); GFR POC > 60
== END 2023-07-09 10:58 | disposition home or self-care (01) ==
LOC: HO.CT 10:57
PROVIDERS: PCP Student in an Organized Health Care Education/Training Program; Visit Provider Nurse Practitioner Family
DX: R05.3 Chronic cough (principal); Z90.2 Acquired absence of lung [part of]
CPT/HCPCS: 71260; 82565; Q9967

== ENCOUNTER 2023-07-22 11:03 | Outpatient (REF) | payer MEDICARE, MEDICAID, SELFPAY ==
[2023-07-22 09:08] VITALS: PULSE 82; RESP 16; O2SAT 97
--- NOTE | 2023-07-22 15:36 | PFT_ITS ---
Flows: FEV1: 49 % of predicted at 1.56 L FVC: 49 % of predicted at 1.98 L FEV1/FVC: 78 % Bronchodilator response: Absent Volumes: Total lung capacity: 53 % of predicted at 3.34 L Residual volume: 71 % of predicted at 1.36 L Slow vital capacity: 44 % of predicted at 1.98 L Expiratory reserve volume: 28 % of predicted at 0.31 L Diffusion capacity: Mildly decreased, corrects to normal after adjustment for alveolar ventilation. Impression: Severe restrictive ventilatory defect with no bronchodilator response. Decreased expiratory reserve volume suggests extrathoracic restriction likely secondary to abdominal obesity. Combination of restrictive ventilatory defect with decreased diffusion capacity suggests underlying pulmonary parenchymal disease. Clinical correlation is advised. MTDD
== END 2023-07-22 11:04 | disposition home or self-care (01) ==
LOC: HO.RESP 11:03
PROVIDERS: PCP Student in an Organized Health Care Education/Training Program; Visit Provider Nurse Practitioner Family
DX: J45.909 Unspecified asthma, uncomplicated (principal)
CPT/HCPCS: 94010; 94640; 94727; 94729

== ENCOUNTER → 2023-07-22 15:36 | Outpatient (BNV) | payer MEDICARE, MEDICAID, SELFPAY | PROVIDERS: PCP Student in an Organized Health Care Education/Training Program; Visit Provider Internal Medicine Pulmonary Disease | DX: J45.909 Unspecified asthma, uncomplicated (principal) | CPT/HCPCS: 94060; 94727; 94729 ==

== ENCOUNTER 2023-07-23 13:35 | Outpatient (AMB) | payer MEDICARE, MEDICAID, SELFPAY ==
--- NOTE | 2023-07-23 13:38 | MHC.OFFVIS ---
Vital Signs 07/23/23 13:49 Height 5 ft 6 in Weight 226 lb BMI 36.5 Pulse 82 Pulse Source Pulse Oximeter Temp 97.9 F Temp Source Oral Pulse Oximetry (%) 97 Oxygen Delivery Method Room Air Intake Visit Reasons: Reff [facility] [place] Abx prophalaxis Allergies Penicillins Allergy (Mild, Verified 07/23/23 13:51) RASH lisinopril Allergy (Unknown, Verified 07/23/23 13:51) Unknown penicillin V Allergy (Unknown, Verified 07/23/23 13:51) Rash HPI HPI Reff [facility] [place] Abx prophalaxis: Details: He presents as evaluation for infection aorta/lung. He has congenital coarctation and had surgery 08/2022 for infection aorta/lung. He was in critical condition, He had green sputum production and received Levaquin 750 mg daily. He also had uvuloplasty. He had rash to Penicillin as child. [facility] Medical History Sludge in gallbladder Diabetes HTN (hypertension) Coarctation of aorta Asthma Surgical History Status post aortic coarctation stent placement Social History Alcohol intake: current Alcohol intake frequency: holidays/special occasions only Patient Tobacco Use Status: Former Tobacco user Cigarette Packs Per Day: 0.5 Years Smoked: 5 Substance Use Type: Marijuana Current occupational status: disabled Current occupation: right hand dominant Review of Systems Const All systems reviewed & are unremarkable except as noted in HPI and below Physical Exam Vital Signs: Last Vital Signs Temp 97.9 F 07/23/23 13:49 Pulse 82 07/23/23 13:49 Pulse Ox 97 07/23/23 13:49 Oxygen Delivery Method Room Air 07/23/23 13:49 BMI result Body Mass Index 36.5 Const General: cooperative Orientation/consciousness: patient oriented x3 HEENT Head: Yes normal to inspection Mouth: Normal oral and palatal mucosa present Eyes General: appearance normal, both eyes and all related structures Pupils: Equal, round and reactive pupils present Resp Effort & Inspection: normal respiratory effort Cardio Other: 3/6 DOROTEO Rate: regular rate Rhythm: regular rhythm GI Palpation (GI): Soft to palpation and nontender General: Yes no CVA tenderness Back/Spine/Pelvis Back: no CVA tenderness Skin General skin exam: no rashes or lesions noted Neuro General: patient oriented x3 Cranial nerves: Yes CN's II-XII intact bilaterally and Yes Equal, round and reactive pupils present Extrem General: Yes normal to inspection Psych Appearance: grossly normal Assessment & Plan Assessment & Plan (1) Status post partial lobectomy of lung: Code(s): Z90.2 - Acquired absence of lung [part of] Category: Surgical Plan: Continue Keflex 500 mg po bid. I did order and will see patient routinely in six months preventive medication for possible aortic infection which would be lifethreatening. Come to ER if fever /chills/feels ill. Medications: New cephalexin 500 mg PO BID 30 days 60 caps 5RF Coding Level of Care Code New Pt Level 4 (80377) Diagnoses Status post partial lobectomy of lung Z90.2
[2023-07-23 13:49] VITALS: PULSE 82; TEMP 36.6; O2SAT 97; BMI 36.5
== END 2023-07-23 14:23 | disposition home or self-care (01) ==
LOC: HO.HID 13:35
PROVIDERS: PCP Student in an Organized Health Care Education/Training Program; Visit Provider Internal Medicine
DX: Z90.2 Acquired absence of lung [part of] (principal)
CPT/HCPCS: 99204

== ENCOUNTER → 2023-07-23 13:35 | Outpatient (BNVA) | payer MEDICARE, MEDICAID, SELFPAY | PROVIDERS: PCP Student in an Organized Health Care Education/Training Program; Visit Provider Internal Medicine | DX: Z90.2 Acquired absence of lung [part of] (principal) | CPT/HCPCS: 99202 ==

== ENCOUNTER 2023-08-20 10:07 | Outpatient (AMB) | payer MEDICARE, MEDICAID, SELFPAY ==
[2023-08-20 10:16] VITALS: BP 142/68; PULSE 58; O2SAT 98; BMI 36.4
--- NOTE | 2023-08-20 10:16 | MHC.OFFVIS ---
Vital Signs 08/20/23 10:16 Height 5 ft 6 in Weight 225 lb 4 oz BMI 36.4 BP 142/68 H Blood Pressure Location Rt brachial Position Sitting Pulse 58 Pulse Source Pulse Oximeter Pulse Oximetry (%) 98 Oxygen Delivery Method Room Air Intake Visit Reasons: cough: 3 month f/u Allergies Penicillins Allergy (Mild, Verified 08/20/23 14:43) RASH lisinopril Allergy (Unknown, Verified 08/20/23 14:43) Unknown penicillin V Allergy (Unknown, Verified 08/20/23 14:43) Rash HPI HPI cough: 3 month f/u: Details: David is a pleasant 58 year old male, former smoker with approximately 20 pack year history, quit 1992, with underlying asthma and aortic coarctation (repaired multiple times since childhood) s/p TEVAR 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 At the last visit he reported chronic productive cough with green sputum since undergoing aortic repair in August 2022. He was prescribed Levaquin with complete resolution of cough. He also reported chest tightness and wheezing which has been minimally changed with Flovent. Today he presents to review PFT results. [facility] Medical History Sludge in gallbladder Diabetes HTN (hypertension) Coarctation of aorta Asthma Surgical History Status post aortic coarctation stent placement Social History Alcohol intake: current Alcohol intake frequency: holidays/special occasions only Patient Tobacco Use Status: Former Tobacco user Cigarette Packs Per Day: 0.5 Years Smoked: 5 Substance Use Type: Marijuana Current occupational status: disabled Current occupation: right hand dominant Review of Systems Const Denies chills, Denies excessive sweating, Denies fever(s), Denies headache(s) and Denies night sweats Eyes Denies dry eyes, Denies irritation and Denies itchy eyes ENT Reports Normal hearing present, Denies headache(s), Denies nasal congestion, Denies nasal discharge, Denies post nasal drip and Denies sore throat Card Denies chest pain, Denies chest pain at rest, Denies chest pain with activity, Denies claudication, Denies leg edema, Denies orthopnea and Denies paroxysmal nocturnal dyspnea Resp Denies chest congestion, Denies cough, Denies excessive phlegm production, Denies pain on inspiration, Denies pain with cough and Denies stridor Musc Denies myalgias Neuro Reports Normal hearing present and Denies headache(s) Endo Denies excessive sweating Otto/Lymph Denies lymphadenopathy Aller/Immun Denies itchy eyes and Denies seasonal rhinorrhea Physical Exam Vital Signs: Last Vital Signs Pulse 58 08/20/23 10:16 BP 142/68 H 08/20/23 10:16 Pulse Ox 98 08/20/23 10:16 Oxygen Delivery Method Room Air 08/20/23 10:16 BMI result Body Mass Index 36.4 Const General: cooperative, healthy appearing, comfortable, no acute distress, well developed and alert Nutritional Appearance: obese Orientation/consciousness: patient oriented x3 Limitations: no limitations HEENT Head: Yes normal to inspection, Yes normocephalic and Yes atraumatic Ears: hearing grossly normal bilaterally and external ears normal Eyes General: appearance normal, both eyes and all related structures Eyelids: Yes eyelids normal Sclerae: sclerae normal EOM: EOMs intact bilaterally Neck Neck: Yes normal visual inspection and Yes no lymphadenopathy Lymphatic: no lymphadenopathy noted Chest Chest palpation & inspection: normal inspection of the chest Resp Effort & Inspection: normal respiratory effort, able to speak in complete sentences, no audible wheezes, no cough, no stridor, not tachypneic, no tripod positioning and no use of accessory muscles Auscultation: clear to auscultation bilaterally Cardio Jugular venous distension: no JVD Rate: regular rate Rhythm: regular rhythm Skin Other: warm, dry General skin exam: no rashes or lesions noted Neuro General: patient oriented x3 Cranial nerves: Yes Normal hearing present Cognition (Neuro): normal cognition Gait exam (Neuro): Normal gait present Extrem General: Yes normal to inspection, Yes capillary refill normal, Yes no clubbing, cyanosis or edema and Yes no pedal edema Psych Appearance: grossly normal and well kempt Speech and movement: Normal speech and movement present and Clear speech present Affect: normal affect Attitude: cooperative Thought process: Normal thought process present Thought content: Normal thought content present Insight: Good insight present (Psych) Judgement: Good judgement present (Psych) Assessment & Plan Assessment & Plan (1) Asthma: Code(s): J45.909 - Unspecified asthma, uncomplicated Category: Medical (2) Status post partial lobectomy of lung: Code(s): Z90.2 - Acquired absence of lung [part of] Category: Surgical (3) Restrictive ventilatory defect: Code(s): R94.2 - Abnormal results of pulmonary function studies Category: Medical Plan David reports complete resolution of cough after course of Levaquin. He is aware to call the office if symptoms return. Will switch Flovent to Advair as patient reported suboptimal control. Reviewed PFT which revealed severe restrictive ventilatory defect with no bronchodilator response. Decreased expiratory reserve volume suggests extrathoracic restriction likely secondary to abdominal obesity. Combination of restrictive ventilatory defect with decreased diffusion capacity suggests underlying pulmonary parenchymal disease, which is likely related to prior left upper lobectomy and left lower lobe wedge resection. Will follow-up in 3 months or sooner if needed all questions were answered and patient is in agreement of plan. Medications: New fluticasone propion-salmeterol 115-21 mcg/actuation (Advair HFA) 2 puffs inhalation Q12H 12 grams 6RF Coding Level of Care Code Est Pt Level 4 (21870) Diagnoses Asthma J45.909 Status post partial lobectomy of lung Z90.2 Restrictive ventilatory defect R94.2
== END 2023-08-20 10:47 | disposition home or self-care (01) ==
PROVIDERS: PCP Student in an Organized Health Care Education/Training Program; Visit Provider Nurse Practitioner Family
DX: J45.909 Unspecified asthma, uncomplicated (principal); Z90.2 Acquired absence of lung [part of]; R94.2 Abnormal results of pulmonary function studies
CPT/HCPCS: 99214

== ENCOUNTER → 2023-08-20 10:07 | Outpatient (BNVA) | payer MEDICARE, MEDICAID, SELFPAY | PROVIDERS: PCP Student in an Organized Health Care Education/Training Program; Visit Provider Nurse Practitioner Family | DX: J45.909 Unspecified asthma, uncomplicated (principal); R94.2 Abnormal results of pulmonary function studies; Z90.2 Acquired absence of lung [part of]; M25.512 Pain in left shoulder | CPT/HCPCS: 99212 ==

== ENCOUNTER 2023-08-20 14:20 | Outpatient (AMB) | payer MEDICARE, MEDICAID, SELFPAY ==
--- NOTE | 2023-08-20 14:37 | MHC.OFFVIS ---
Intake Visit Reasons: OV- MRI review Left shoulder Intake Note: David is a 58 year old male who presents with complaints of progressively worsening left shoulder pain and stiffness. His symptoms have gotten worse over the last year in spite of continued non operative treatments. He has failed the last 6 weeks of conservative treatment. Has had cortisone injections in the past. The most recent injection gave him minimal relief. He has also done physical therapy exercises which aggravated his pain. The patient reports difficulty lifting his left hand above shoulder height. Allergies Penicillins Allergy (Mild, Verified 08/20/23 14:43) RASH lisinopril Allergy (Unknown, Verified 08/20/23 14:43) Unknown penicillin V Allergy (Unknown, Verified 08/20/23 14:43) Rash Medication List - Last Reconciled 08/20/23 by Dustin Falcon MD amlodipine 10 mg PO QPM aspirin 81 mg PO QAM cephalexin 500 mg PO QID cephalexin 500 mg PO BID 30 days cyanocobalamin (vitamin B-12) 1,000 mcg PO QAM empagliflozin (Jardiance) 10 mg PO DAILY fluticasone propion-salmeterol 115-21 mcg/actuation (Advair HFA) 2 puffs inhalation Q12H linagliptin (Tradjenta) 5 mg PO DAILY losartan 100 mg PO DAILY rosuvastatin 10 mg PO QPM tizanidine 2 mg PO TID PFSH Medical History Sludge in gallbladder Diabetes HTN (hypertension) Coarctation of aorta Asthma Surgical History Status post aortic coarctation stent placement Social History Alcohol intake: current Alcohol intake frequency: holidays/special occasions only Patient Tobacco Use Status: Former Tobacco user Cigarette Packs Per Day: 0.5 Years Smoked: 5 Substance Use Type: Marijuana Current occupational status: disabled Current occupation: right hand dominant Physical Exam Const Other: Well-nourished well-developed very friendly male awake alert and oriented x3 in no acute distress Extrem Other: Bilateral upper extremity examination shows good capillary refill, no skin lesions noted, normal sensation light touch Left shoulder examination shows decreased active and passive range of motion when compared to his right shoulder, 4+ out of 5 strength with supraspinatus testing, positive impingement signs, tenderness over his acromioclavicular joint, no instability Results Reviewed Results Reviewed: MRI of the patient's left shoulder was reviewed with the patient today, the MRI shows severe acromioclavicular joint narrowing, a type 3 acromion, signal change within the supraspinatus tendon most likely due to adhesive capsulitis Assessment & Plan Assessment & Plan (1) Left shoulder pain: Code(s): M25.512 - Pain in left shoulder Category: Medical Plan Mr. Thompson Nieves presents with right shoulder pain and stiffness due to impingement syndrome, acromioclavicular joint arthritis and adhesive capsulitis. I had a lengthy discussion with the patient regarding the treatment options. At this point he has failed continued non operative treatments. The risks and benefits of left shoulder surgery were discussed at length with the patient. The patient is interested in proceeding with surgery when he returns from his 1 month vacation in [place]. The patient will contact my office to pick a surgery date. I will have him follow-up with his oncology patient navigator for preoperative clearance prior to his surgery. Surgery will most likely involve left shoulder diagnostic arthroscopy with distal clavicle excision, acromioplasty, capsular release and manipulation under anesthesia. Feel free to call me at any time should questions regarding his orthopedic management arise. I spent 22 minutes in reviewing the patient's records and imaging studies, seeing the patient and documenting in the medical record. Coding Level of Care Code Est Pt Level 3 (00412) Diagnoses Left shoulder pain M25.512
== END 2023-08-20 15:15 | disposition home or self-care (01) ==
PROVIDERS: PCP Student in an Organized Health Care Education/Training Program; Visit Provider Orthopaedic Surgery
DX: M25.512 Pain in left shoulder (principal)
CPT/HCPCS: 99213

== ENCOUNTER 2023-10-29 10:55 | Outpatient (AMB) | payer MEDICARE, MEDICAID, SELFPAY ==
--- NOTE | 2023-10-29 10:56 | MHC.OFFVIS ---
Vital Signs 10/29/23 10:57 Height 5 ft 6 in Weight 224 lb 4 oz BMI 36.2 BP 98/62 Blood Pressure Location Lt brachial Position Sitting Pulse 59 Pulse Source Pulse Oximeter Pulse Oximetry (%) 99 Oxygen Delivery Method Room Air Intake Visit Reasons: pulmonary clearance Allergies Penicillins Allergy (Mild, Verified 10/29/23 10:59) RASH lisinopril Allergy (Unknown, Verified 10/29/23 10:59) Unknown penicillin V Allergy (Unknown, Verified 10/29/23 10:59) Rash HPI HPI pulmonary clearance: Details: David is a pleasant 58 year old male, former smoker with approximately 20 pack year history, quit 1992, with underlying asthma and aortic coarctation (repaired multiple times since childhood) s/p TEVAR which was complicated by MSSA infection in August 2022 s/p left upper lobectomy and left lower lobe superior segment wedge resection, maintained on suppressive keflex 500 mg BID, per [facility] ID, indefinitely. Previously he reported a chronic productive cough with green sputum since undergoing aortic repair in August 2022 which resolved with Levaquin 750 mg x 14 days on 06/27/23 having complete resolution of cough for approximately 3 months. Unfortunately, patient reports cough has returned about 5 weeks ago. He also reports chest tightness and wheezing but has not been using Advair on a daily basis. [facility] Medical History Sludge in gallbladder Diabetes HTN (hypertension) Coarctation of aorta Asthma Surgical History Status post aortic coarctation stent placement Social History Alcohol intake: current Alcohol intake frequency: holidays/special occasions only Patient Tobacco Use Status: Former Tobacco user Cigarette Packs Per Day: 0.5 Years Smoked: 5 Substance Use Type: Marijuana Current occupational status: disabled Current occupation: right hand dominant Review of Systems Const Denies chills, Denies excessive sweating, Denies fever(s), Denies headache(s) and Denies night sweats Eyes Denies dry eyes, Denies irritation and Denies itchy eyes ENT Reports Normal hearing present, Denies headache(s), Denies nasal congestion, Denies nasal discharge, Denies post nasal drip and Denies sore throat Card Denies chest pain, Denies chest pain at rest, Denies chest pain with activity, Denies claudication, Denies leg edema, Denies dyspnea, Denies dyspnea on exertion, Denies orthopnea and Denies paroxysmal nocturnal dyspnea Resp Denies pain on inspiration, Denies pain with cough, Denies dyspnea, Denies dyspnea on exertion and Denies stridor Musc Denies myalgias Neuro Reports Normal hearing present and Denies headache(s) Endo Denies excessive sweating Otto/Lymph Denies lymphadenopathy Aller/Immun Denies itchy eyes and Denies seasonal rhinorrhea Physical Exam Vital Signs: Last Vital Signs Pulse 59 10/29/23 10:57 BP 98/62 10/29/23 10:57 Pulse Ox 99 10/29/23 10:57 Oxygen Delivery Method Room Air 10/29/23 10:57 BMI result Body Mass Index 36.2 Const General: cooperative, healthy appearing, comfortable, no acute distress, well developed and alert Nutritional Appearance: obese Orientation/consciousness: patient oriented x3 Limitations: no limitations HEENT Head: Yes normal to inspection, Yes normocephalic and Yes atraumatic Ears: hearing grossly normal bilaterally and external ears normal Eyes General: appearance normal, both eyes and all related structures Eyelids: Yes eyelids normal Sclerae: sclerae normal EOM: EOMs intact bilaterally Neck Neck: Yes normal visual inspection and Yes no lymphadenopathy Lymphatic: no lymphadenopathy noted Chest Chest palpation & inspection: normal inspection of the chest Resp Effort & Inspection: normal respiratory effort, able to speak in complete sentences, no audible wheezes, no cough, no stridor, not tachypneic, no tripod positioning and no use of accessory muscles Auscultation: clear to auscultation bilaterally Cardio Jugular venous distension: no JVD Rate: regular rate Rhythm: regular rhythm Skin Other: warm, dry General skin exam: no rashes or lesions noted Neuro General: patient oriented x3 Cranial nerves: Yes Normal hearing present Cognition (Neuro): normal cognition Gait exam (Neuro): Normal gait present Extrem General: Yes normal to inspection, Yes capillary refill normal, Yes no clubbing, cyanosis or edema and Yes no pedal edema Psych Appearance: grossly normal and well kempt Speech and movement: Normal speech and movement present and Clear speech present Affect: normal affect Attitude: cooperative Thought process: Normal thought process present Thought content: Normal thought content present Insight: Good insight present (Psych) Judgement: Good judgement present (Psych) Assessment & Plan Assessment & Plan (1) Asthma: Code(s): J45.909 - Unspecified asthma, uncomplicated Category: Medical (2) Status post partial lobectomy of lung: Code(s): Z90.2 - Acquired absence of lung [part of] Category: Surgical (3) Restrictive ventilatory defect: Code(s): R94.2 - Abnormal results of pulmonary function studies Category: Medical (4) Chronic cough: Code(s): R05.3 - Chronic cough Category: Medical Plan David initally reported complete resolution of cough after course of Levaquin, unfortunately after 3 months his cough has returned. Discussed with Dr. Neal and will send for bronchoscopy. He is aware if symptoms worsen to call office. Advised patient to use Advair continuously, as he has been using on a PRN basis. All questions were answered and patient is in agreement of plan. Will follow up to review results. Of note, patient intended on obtaining pulmonary clearance today, will send message to Dr. Falcon to inform of upcoming bronchoscopy. Coding Level of Care Code Est Pt Level 4 (72992) Diagnoses Asthma J45.909 Status post partial lobectomy of lung Z90.2 Restrictive ventilatory defect R94.2 Chronic cough R05.3
[2023-10-29 10:57] VITALS: BP 98/62; PULSE 59; O2SAT 99; BMI 36.2
== END 2023-10-29 11:26 | disposition home or self-care (01) ==
PROVIDERS: PCP Student in an Organized Health Care Education/Training Program; Visit Provider Nurse Practitioner Family
DX: J45.909 Unspecified asthma, uncomplicated (principal); Z90.2 Acquired absence of lung [part of]; R94.2 Abnormal results of pulmonary function studies; R05.3 Chronic cough
CPT/HCPCS: 99214

== ENCOUNTER → 2023-10-29 10:55 | Outpatient (BNVA) | payer MEDICARE, MEDICAID, SELFPAY | PROVIDERS: PCP Student in an Organized Health Care Education/Training Program; Visit Provider Nurse Practitioner Family | DX: J45.909 Unspecified asthma, uncomplicated (principal); R94.2 Abnormal results of pulmonary function studies; R05.3 Chronic cough; Z90.2 Acquired absence of lung [part of] | CPT/HCPCS: 99212 ==

== ENCOUNTER 2023-11-04 08:48 | Outpatient (REF) | payer MEDICARE, MEDICAID, SELFPAY ==
[2023-11-04 16:34] LABS: Hematocrit 51.1 % (42.0-52.0); Hemoglobin 16.2 g/dl (14.0-18.0); Mean Corpuscular HGB Conc 31.7 g/dl (31.0-36.0); Mean Corpuscular Hemoglobin 26.8 pg (27.0-33.0); Mean Corpuscular Volume 84.5 fL (80.0-98.0); Mean Platelet Volume 12.3 fL (9.4-12.4); Platelet Count 208 X10*3/uL (160-400); Red Blood Count 6.05 X10*6/uL (4.60-5.80); Red Cell Distribution Width 14.2 % (11.0-16.0); White Blood Count 7.6 X10*3/uL (4.8-10.8)
[2023-11-04 16:52] LABS: Alanine Aminotransferase 22 U/L (0-40); Albumin Level 4.5 g/dL (3.5-5.0); Alkaline Phosphatase 80 U/L (39-117); Anion Gap 12 (12-20); Aspartate Amino Transferase 22 U/L (5-37); Bilirubin Total 0.6 mg/dL (0.0-1.0); Blood Urea Nitrogen 11 mg/dL (9-16); Calcium 9.8 mg/dL (8.4-10.2); Carbon Dioxide 28 mmol/L (22-29); Chloride 105 mmol/L (96-108); Estimated Glomerular Filt Rate > 60; Glucose Random 125 mg/dL (60-115); Potassium 4.2 mmol/L (3.3-5.1); Sodium 141 mmol/L (135-145); Total Protein 7.4 g/dL (6.5-8.0)
== END 2023-11-04 08:49 | disposition home or self-care (01) ==
LOC: HO.CHCLDS 08:48
PROVIDERS: Visit Provider Internal Medicine
DX: Z01.818 Encounter for other preprocedural examination (principal)
CPT/HCPCS: 36415; 80053; 85027

== ENCOUNTER 2023-12-09 08:49 | Outpatient (AMB) | payer MEDICARE, MEDICAID, SELFPAY ==
--- NOTE | 2023-12-09 08:56 | A.OFFVIS_ITS ---
Vital Signs 12/09/23 08:57 Height 5 ft 6 in Weight 224 lb 6 oz BMI 36.2 BP 108/64 Blood Pressure Location Lt brachial Position Sitting Pulse 58 Pulse Source Pulse Oximeter Pulse Oximetry (%) 98 Oxygen Delivery Method Room Air Intake Visit Reasons: pulmonary clearance Allergies cinnamon Allergy (Severe, Verified 12/09/23 08:59) Swelling Penicillins Allergy (Mild, Verified 12/09/23 08:59) RASH lisinopril Adverse Reaction (Intermediate, Verified 12/09/23 08:59) Cough HPI HPI pulmonary clearance: Details: David is a pleasant 58 year old male, former smoker with approximately 20 pack year history, quit 1992, with underlying asthma and aortic coarctation (repaired multiple times since childhood) s/p TEVAR which was complicated by MSSA infection in August 2022 s/p left upper lobectomy and left lower lobe superior segment wedge resection, maintained on suppressive keflex 500 mg BID, per [facility] ID, indefinitely. He continues to report intermittent productive cough with green sputum in the morning followed by clear sputum. He did report worsening of cough the last few weeks, possible allergic component. He has not had any allergy testing. He also reports suboptimal effect with Advair, continues with dyspnea on exertion and wheezing. He is followed by Dr. Boone, at [facility] Medical History (Updated 12/09/23 @ 09:30 by Obdulia Restrepo NP) Family history of anesthesia complication Arthritis Vertigo MSSA (methicillin susceptible Staphylococcus aureus) infection Sludge in gallbladder Diabetes HTN (hypertension) Coarctation of aorta Asthma Surgical History (Updated 11/06/23 @ 10:13 by Ting Durand RN) History of uvulopalatopharyngoplasty Hx of tonsillectomy Hx of heart surgery Hx of heart surgery Hx of circumcision S/P lobectomy of lung Status post aortic coarctation stent placement Social History Are you a primary client care manager to a significant other at home: No Do you presently have visiting nurse or other home services: No Alcohol intake: current Alcohol intake frequency: former alcohol drinker Patient Tobacco Use Status: Former Tobacco user Tobacco use type: Cigarette Cigarette Packs Per Day: 0.5 Years Smoked: 5 Substance Use Type: Marijuana Current occupational status: disabled Current occupation: right hand dominant Review of Systems Const Denies chills, Denies excessive sweating, Denies fever(s), Denies headache(s) and Denies night sweats Eyes Denies dry eyes, Denies irritation and Denies itchy eyes ENT Reports Normal hearing present, Denies headache(s), Denies nasal congestion, Denies nasal discharge and Denies sore throat Card Denies chest pain, Denies chest pain at rest, Denies chest pain with activity, Denies claudication, Denies leg edema, Denies dyspnea, Denies orthopnea and Denies paroxysmal nocturnal dyspnea Resp Denies pain on inspiration, Denies pain with cough, Denies dyspnea and Denies stridor Musc Denies myalgias Neuro Reports Normal hearing present and Denies headache(s) Endo Denies excessive sweating Otto/Lymph Denies lymphadenopathy Aller/Immun Denies itchy eyes and Denies seasonal rhinorrhea Physical Exam Vital Signs: Last Vital Signs Pulse 58 12/09/23 08:57 BP 108/64 12/09/23 08:57 Pulse Ox 98 12/09/23 08:57 Oxygen Delivery Method Room Air 12/09/23 08:57 BMI result Body Mass Index 36.2 Const General: cooperative, healthy appearing, comfortable, no acute distress, well developed and alert Nutritional Appearance: obese Orientation/consciousness: patient oriented x3 Limitations: no limitations HEENT Head: Yes normal to inspection, Yes normocephalic and Yes atraumatic Ears: hearing grossly normal bilaterally and external ears normal Eyes General: appearance normal, both eyes and all related structures Eyelids: Yes eyelids normal Sclerae: sclerae normal EOM: EOMs intact bilaterally Neck Neck: Yes normal visual inspection and Yes no lymphadenopathy Lymphatic: no lymphadenopathy noted Chest Chest palpation & inspection: normal inspection of the chest Resp Effort & Inspection: normal respiratory effort, able to speak in complete sentences, no audible wheezes, no cough, no stridor, not tachypneic, no tripod positioning and no use of accessory muscles Auscultation: clear to auscultation bilaterally Cardio Jugular venous distension: no JVD Rate: regular rate Rhythm: regular rhythm Skin Other: warm, dry General skin exam: no rashes or lesions noted Neuro General: patient oriented x3 Cranial nerves: Yes Normal hearing present Cognition (Neuro): normal cognition Gait exam (Neuro): Normal gait present Extrem General: Yes normal to inspection, Yes capillary refill normal, Yes no clubbing, cyanosis or edema and Yes no pedal edema Psych Appearance: grossly normal and well kempt Speech and movement: Normal speech and movement present and Clear speech present Affect: normal affect Attitude: cooperative Thought process: Normal thought process present Thought content: Normal thought content present Insight: Good insight present (Psych) Judgement: Good judgement present (Psych) Results Reviewed Results Reviewed: [address] [address] [address] Scan Report Signed Patient: David Gurrola MR#: [id number] : 1965 Acct:[id number] Age/Sex: 58 / M ADM Date: 07/09/23 Loc: HO.CT Attending Dr: Obdulia Restrepo NP Ordering Physician: Obdulia Restrepo NP Date of Service: 07/09/23 Procedure(s): CT chest w IV con Accession Number(s): [id number] cc: Celia Torres MD; Obdulia Restrepo NP~ EXAMINATION: CT CHEST WITH CONTRAST CLINICAL INFORMATION: Chronic cough COMPARISON: Previous chest CT scans most recent May 2023 TECHNIQUE: Multidetector volumetric CT imaging of the chest was obtained after the administration of 65 mL of Omnipaque 350 intravenous contrast without immediate adverse reactions. Axial MIP volume rendering provided. Sagittal and coronal reformatted images were obtained. This CT examination was performed using dose optimization techniques as appropriate, variously including the following: *Automated exposure control *Adjustment of mA and/or kV according to patient size (this includes techniques or standardized protocols for targeted exams where dose is matched to indication/reason for exam; i.e. extremities or head) *Use of iterative reconstruction technique DLP: 311 mGy-cm FINDINGS: LUNGS: There are new postsurgical changes left upper lobe lobectomy. There is residual left apical pleural thickening and small amount of fluid. There is subsegmental atelectasis or linear scarring at the left lung base and in the left lower lobe extending to the diaphragmatic surface. The right lung is clear. MEDIASTINUM: The distal aortic arch and proximal and mid descending thoracic aorta appear to have been resected. There is a new bypass from the right side of the ascending thoracic aorta coursing along the right heart border anastomosing to the remaining descending thoracic aorta. The right brachiocephalic and common carotid arteries are patent. 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 There is a left common carotid to left subclavian artery bypass graft that is patent and appears unchanged. The heart does not appear enlarged. There is no pericardial effusion. There is mild coronary artery and aortic valve calcification. There are small mediastinal lymph nodes. No enlarged lymph nodes are seen. PLEURA: Left apical pleural thickening/small amount of fluid. This contains a small amount of air. Question postoperative change or focus of residual infection uncertain. AXILLA: No lymphadenopathy. UPPER ABDOMEN: The liver OSSEOUS STRUCTURES: Surgical changes to multiple left upper ribs. Question postsurgical change versus fracture of the left posterior seventh rib near the articulation with the transverse process. Ununited median sternotomy. Degenerative changes of the spine. CT/CT chest w IV con IMPRESSION: Left upper lobe lobectomy. Left apical pleural thickening/small amount of fluid. This contains a small amount of air. Either this represents postoperative change or focus of residual infection. Comparison with more recent post operative chest CT would be helpful. Subsegmental atelectasis in the left lower lobe. Surgical changes to the distal aortic arch and proximal and mid descending thoracic aorta with new ascending to descending thoracic aorta bypass. 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 Question postsurgical change versus fracture of the left posterior seventh rib near the articulation with the transverse process. Fleischner guidelines were followed. Findings will be communicated by the [place] workflow inspecting and testing lead hand Dictated By: Funmilayo Elaine MD Signed By: <Electronically signed by Funmilayo Elaine MD in OV> 07/16/23 1524 DD/ 1153 TD/TT: Block Tester: GUSTAVO Assessment & Plan Assessment & Plan (1) Chronic cough: Code(s): R05.3 - Chronic cough Category: Medical (2) Asthma: Code(s): J45.909 - Unspecified asthma, uncomplicated Category: Medical (3) Status post partial lobectomy of lung: Code(s): Z90.2 - Acquired absence of lung [part of] Category: Surgical (4) Restrictive ventilatory defect: Code(s): R94.2 - Abnormal results of pulmonary function studies Category: Medical Plan Will send for sputum culture, as he continues to report bronchitic symptoms. Will switch Advair to Breo, as he reports adverse effects, and trial ipratropium for post nasal drip. Will also send for RAST labs to assess for an allergic component. Patient is in under the care of cardiology will attempt to request records. Prior chest CT noted focus of residual infection and subsegmental atelectasis in the left lower lobe, will send for repeat chest CT with IV contrast to assess for resolution. All questions were answered and patient is in agreement of plan. Will follow up in 6-8 weeks or sooner if needed. Orders: Orders Sputum Cult + Gram stain Today R05.3 - Chronic cough Complete Blood Count Auto Diff Today R05.3 - Chronic cough Immunoglobulin E Today Z91.09 - Other allergy status, other than to drugs and biological substances Resp Allergy Profile Region I Today Z91.09 - Other allergy status, other than to drugs and biological substances CT chest w IV con Today R05.3 - Chronic cough, Z90.2 - Acquired absence of lung [part of] Medications: New ipratropium bromide administer into each nostril 2 sprays intranasal BID 30 mL 2RF ipratropium bromide administer into each nostril 2 sprays intranasal BID 30 mL 2RF albuterol sulfate 2.5 mg (3 mL) inhalation Q4-6H PRN 180 mL 0RF shortness of breath or wheezing fluticasone furoate-vilanterol 200-25 mcg/dose (Breo Ellipta) 1 inh inhalation DAILY 60 ea 4RF Discontinued fluticasone propion-salmeterol 115-21 mcg/actuation (Advair HFA) Discontinued Reason: Patient no longer taking 2 puffs inhalation Q12H 12 grams 6RF Coding Level of Care Code Est Pt Level 4 (20249) Diagnoses Chronic cough R05.3 Asthma J45.909 Status post partial lobectomy of lung Z90.2 Restrictive ventilatory defect R94.2
[2023-12-09 08:57] VITALS: BP 108/64; PULSE 58; O2SAT 98; BMI 36.2
== END 2023-12-09 09:45 | disposition home or self-care (01) ==
PROVIDERS: PCP Student in an Organized Health Care Education/Training Program; Visit Provider Nurse Practitioner Family
DX: R05.3 Chronic cough (principal); J45.909 Unspecified asthma, uncomplicated; Z90.2 Acquired absence of lung [part of]; R94.2 Abnormal results of pulmonary function studies
CPT/HCPCS: 99214

== ENCOUNTER → 2023-12-09 08:49 | Outpatient (BNVA) | payer MEDICARE, MEDICAID, SELFPAY | PROVIDERS: PCP Student in an Organized Health Care Education/Training Program; Visit Provider Nurse Practitioner Family | DX: Z13.89 Encounter for screening for other disorder (principal) | CPT/HCPCS: 99212 ==

== ENCOUNTER 2023-12-09 09:48 | Outpatient (REF) | payer MEDICARE, MEDICAID, SELFPAY ==
[2023-12-09 11:31] LABS: MANUAL DIFF FLAG NO
[2023-12-09 11:39] LABS: Basophils Percent Auto 0.1 % (0-2); Eosinophils Absolute Auto 0.1 X10*3/uL (0.0-0.4); Eosinophils Percent Auto 1.5 % (0-4); Hematocrit 49.3 % (42.0-52.0); Hemoglobin 15.7 g/dl (14.0-18.0); Imm Gran Abs Auto 0.05 X10*3/uL (0.00-0.03); Imm Gran Pct Auto 0.6 % (0.0-0.4); Lymphocytes Absolute Auto 1.9 X10*3/uL (1.2-4.9); Mean Corpuscular HGB Conc 31.8 g/dl (31.0-36.0); Mean Corpuscular Hemoglobin 26.8 pg (27.0-33.0); Mean Corpuscular Volume 84.1 fL (80.0-98.0); Mean Platelet Volume 11.4 fL (9.4-12.4); Monocytes Absolute Auto 0.6 X10*3/uL (0.1-1.2); Monocytes Percent Auto 7.3 % (2-11); Neutrophils Absolute Auto 5.3 x10*3/uL (2.0-8.3); Neutrophils Percent Auto 66.5 % (45-73); Platelet Count 195 X10*3/uL (160-400); Red Blood Count 5.86 X10*6/uL (4.60-5.80)
[2023-12-15 18:58] LABS: Immunoglobulin E 12 kU/L (<OR=114)
[2023-12-15 21:39] LABS: Class Alternaria alternata 0; Class Aspergillus fumigatus 0; Class Bermuda Grass 0; Class Birch 0; Class Cat Dander 0; Class Cladosporium herbarum 0; Class Cockroach 0/1; Class Common Ragweed 0; Class Cottonwood 0; Class Derm. pterony 0; Class Dermatophagoides farinae 0; Class Dog Dander 0; Class Elm 0; Class Maple Box Elder 0; Class Mountain Cedar 0; Class Mouse Urine Protein 0; Class Mugwort 0; Class Oak 0; Class Penicillium crysogenum 0; Class Rough Pigweed 0; Class Sheep Sorrel 0; Class Sycamore 0; Class Timothy Grass 0; Class Walnut Tree 0; Class White Ash 0; Class White Mulberry 0; D001 IgE D pteronyssinus <0.10 kU/L; D002 - IgE D farinae <0.10 kU/L; E001 - IgE Cat Dander <0.10 kU/L; E005 - IgE Dog Dander <0.10 kU/L; E072-IgE Mouse Urine <0.10 kU/L; G002 IgE Bermuda Grass <0.10 kU/L; G006 - IgE Timothy Grass <0.10 kU/L; I006-IgE Cockroach, German 0.26 kU/L; Immunoglobulin E 11 kU/L (<OR=114); M001 IgE Penicillium chrysogen <0.10 kU/L; M002 - IgE Cladosporium herbar <0.10 kU/L; M003 - IgE Aspergillus fumigat <0.10 kU/L; M006 - IgE Alternaria alternat <0.10 kU/L; T001 IgE Maple/Box Elder <0.10 kU/L; T003 IgE Common Silver Birch <0.10 kU/L; T006 - IgE Cedar, Mountain <0.10 kU/L; T007 - IgE Oak, White <0.10 kU/L; T008 IgE Elm, American <0.10 kU/L; T010 - IgE Walnut <0.10 kU/L; T011 - IgE Maple Leaf Sycamore <0.10 kU/L; T014 - IgE Cottonwood <0.10 kU/L; T015 - IgE Ash, White <0.10 kU/L; T070 - IgE White Mulberry <0.10 kU/L; W001 - IgE Ragweed, Short <0.10 kU/L; W006 - IgE Mugwort <0.10 kU/L; W014 IgE Pigweed, Common <0.10 kU/L; W018 IgE Sheep Sorrel <0.10 kU/L
== END 2023-12-09 09:49 | disposition home or self-care (01) ==
LOC: HO.WFDLDS 09:48
PROVIDERS: Visit Provider Nurse Practitioner Family
DX: Z91.09 Other allergy status, other than to drugs and biological substances (principal); R05.3 Chronic cough; J45.909 Unspecified asthma, uncomplicated; R94.2 Abnormal results of pulmonary function studies
CPT/HCPCS: 36415; 82785; 85025; 86003; 99212

== ENCOUNTER 2024-01-12 06:54 | Outpatient (REF) | payer MEDICARE, MEDICAID, SELFPAY ==
[2024-01-12 07:22] LABS: Blood Urea Nitrogen 11 mg/dL (9-16); Estimated Glomerular Filt Rate > 60
== END 2024-01-12 06:55 | disposition home or self-care (01) ==
LOC: HO.LAB 06:54
PROVIDERS: Surgery; PCP Student in an Organized Health Care Education/Training Program; Visit Provider Nurse Practitioner Family
DX: K82.8 Other specified diseases of gallbladder (principal)
CPT/HCPCS: 36415; 82565; 84520

== ENCOUNTER 2024-01-23 10:52 | Outpatient (REF) | payer MEDICARE, MEDICAID, SELFPAY ==
[2024-01-23 13:35] LABS: Alanine Aminotransferase 26 U/L (0-40); Albumin Level 4.4 g/dL (3.5-5.0); Alkaline Phosphatase 67 U/L (39-117); Anion Gap 14 (12-20); Aspartate Amino Transferase 22 U/L (5-37); Bilirubin Direct 0.4 mg/dL (0.0-0.5); Bilirubin Total 1.3 mg/dL (0.0-1.0); Blood Urea Nitrogen 12 mg/dL (9-16); Calcium 9.6 mg/dL (8.4-10.2); Carbon Dioxide 31 mmol/L (22-29); Chloride 102 mmol/L (96-108); Cholesterol 109 mg/dL (<200); Estimated Glomerular Filt Rate > 60; Glucose Random 128 mg/dL (60-115); HDL Cholesterol 30 mg/dL (>40); LDL Cholesterol Calculated 65 mg/dL (<100); Potassium 4.5 mmol/L (3.3-5.1); Sodium 142 mmol/L (135-145); Total Protein 7.1 g/dL (6.5-8.0); Triglycerides 70 mg/dL (<150)
== END 2024-01-23 10:53 | disposition home or self-care (01) ==
LOC: HO.LAB 10:52
PROVIDERS: PCP Student in an Organized Health Care Education/Training Program; Visit Provider Student in an Organized Health Care Education/Training Program
DX: E11.9 Type 2 diabetes mellitus without complications (principal); I10 Essential (primary) hypertension
CPT/HCPCS: 36415; 80048; 80061; 80076

== ENCOUNTER 2024-02-10 10:41 | Outpatient (REF) | payer MEDICARE, MEDICAID, SELFPAY ==
[2024-02-10] MEDS: iohexoL 350 MG/ML 100 ML INFUS..BTL IV (11:17)
== END 2024-02-10 10:42 | disposition home or self-care (01) ==
LOC: HO.CT 10:41
PROVIDERS: PCP Student in an Organized Health Care Education/Training Program; Visit Provider Nurse Practitioner Family
DX: R05.3 Chronic cough (principal); Z90.2 Acquired absence of lung [part of]
CPT/HCPCS: 71260; Q9967

== ENCOUNTER → 2024-02-10 10:43 | Outpatient (BNV) | payer MEDICARE, MEDICAID, SELFPAY | PROVIDERS: PCP Student in an Organized Health Care Education/Training Program; Visit Provider Radiology Diagnostic Radiology | DX: Z90.2 Acquired absence of lung [part of] (principal) | CPT/HCPCS: 71260 ==

== ENCOUNTER 2024-03-17 10:19 | Outpatient (AMB) | payer MEDICARE, MEDICAID, SELFPAY ==
--- NOTE | 2024-03-17 10:25 | A.OFFVIS_ITS ---
Vital Signs 03/17/24 10:26 Height 5 ft 6 in Weight 224 lb 8 oz BMI 36.2 BP 132/60 Blood Pressure Location Rt brachial Position Sitting Pulse 65 Pulse Source Pulse Oximeter Pulse Oximetry (%) 98 Oxygen Delivery Method Room Air Intake Visit Reasons: chronic cough/ CT FU Allergies cinnamon Allergy (Severe, Verified 03/17/24 10:28) Swelling Penicillins Allergy (Mild, Verified 03/17/24 10:28) RASH lisinopril Adverse Reaction (Intermediate, Verified 03/17/24 10:28) Cough HPI HPI chronic cough/ CT FU: Details: David is a pleasant 58 year old male, former smoker with approximately 20 pack year history, quit 1992, with underlying asthma and aortic coarctation (repaired multiple times since childhood) s/p TEVAR which was complicated by MSSA infection in August 2022 s/p left upper lobectomy and left lower lobe superior segment wedge resection, maintained on suppressive keflex 500 mg BID, per [facility] ID, indefinitely. He has seen Dr. Sears who now prescribes Keflex. He is also followed by Dr. Boone, at [facility]. He initially presented to office as he reported intermittent productive cough with green sputum in the morning that was present since the surgery. He completed a course of Levaquin in addition to Keflex and has complete resolution of cough. He reports intermittent dyspnea on exertion however minimal. He has been doing quite well with Breo using albuterol infrequently. He denies any visits to urgent care hospitalizations related to respiratory distress. Today he presents to review chest CT unfortunately not officially read by Radiology. [facility] Medical History (Updated 12/22/23 @ 09:23 by Obdulia Restrepo NP) Family history of anesthesia complication Arthritis Vertigo MSSA (methicillin susceptible Staphylococcus aureus) infection Sludge in gallbladder Diabetes HTN (hypertension) Coarctation of aorta Asthma Surgical History (Updated 11/06/23 @ 10:13 by Ting Durand RN) History of uvulopalatopharyngoplasty Hx of tonsillectomy Hx of heart surgery Hx of heart surgery Hx of circumcision S/P lobectomy of lung Status post aortic coarctation stent placement Social History Are you a primary transitional care manager to a significant other at home: No Do you presently have visiting nurse or other home services: No Alcohol intake: current Alcohol intake frequency: former alcohol drinker Patient Tobacco Use Status: Former Tobacco user Tobacco use type: Cigarette Cigarette Packs Per Day: 0.5 Years Smoked: 5 Substance Use Type: Marijuana Current occupational status: disabled Current occupation: right hand dominant Review of Systems Const Denies chills, Denies excessive sweating, Denies fever(s), Denies headache(s) and Denies night sweats Eyes Denies dry eyes, Denies irritation and Denies itchy eyes ENT Reports Normal hearing present, Denies headache(s), Denies nasal congestion, Denies nasal discharge and Denies sore throat Card Denies chest pain, Denies chest pain at rest, Denies chest pain with activity, Denies claudication, Denies leg edema, Denies dyspnea, Denies orthopnea and Denies paroxysmal nocturnal dyspnea Resp Denies pain on inspiration, Denies pain with cough, Denies dyspnea and Denies stridor Musc Denies myalgias Neuro Reports Normal hearing present and Denies headache(s) Endo Denies excessive sweating Otto/Lymph Denies lymphadenopathy Aller/Immun Denies itchy eyes and Denies seasonal rhinorrhea Physical Exam Vital Signs: Last Vital Signs Pulse 65 03/17/24 10:26 BP 132/60 03/17/24 10:26 Pulse Ox 98 03/17/24 10:26 Oxygen Delivery Method Room Air 03/17/24 10:26 BMI result Body Mass Index 36.2 Const General: cooperative, healthy appearing, comfortable, no acute distress, well developed and alert Nutritional Appearance: obese Orientation/consciousness: patient oriented x3 Limitations: no limitations HEENT Head: Yes normal to inspection, Yes normocephalic and Yes atraumatic Ears: hearing grossly normal bilaterally and external ears normal Eyes General: appearance normal, both eyes and all related structures Eyelids: Yes eyelids normal Sclerae: sclerae normal EOM: EOMs intact bilaterally Neck Neck: Yes normal visual inspection and Yes no lymphadenopathy Lymphatic: no lymphadenopathy noted Chest Chest palpation & inspection: normal inspection of the chest Resp Effort & Inspection: normal respiratory effort, able to speak in complete sentences, no audible wheezes, no cough, no stridor, not tachypneic, no tripod positioning and no use of accessory muscles Auscultation: clear to auscultation bilaterally Cardio Jugular venous distension: no JVD Rate: regular rate Rhythm: regular rhythm Skin Other: warm, dry General skin exam: no rashes or lesions noted Neuro General: patient oriented x3 Cranial nerves: Yes Normal hearing present Cognition (Neuro): normal cognition Gait exam (Neuro): Normal gait present Extrem General: Yes normal to inspection, Yes capillary refill normal, Yes no clubbing, cyanosis or edema and Yes no pedal edema Psych Appearance: grossly normal and well kempt Speech and movement: Normal speech and movement present and Clear speech present Affect: normal affect Attitude: cooperative Thought process: Normal thought process present Thought content: Normal thought content present Insight: Good insight present (Psych) Judgement: Good judgement present (Psych) Assessment & Plan Assessment & Plan (1) Asthma: Code(s): J45.909 - Unspecified asthma, uncomplicated Category: Medical (2) Status post partial lobectomy of lung: Code(s): Z90.2 - Acquired absence of lung [part of] Category: Surgical (3) Restrictive ventilatory defect: Code(s): R94.2 - Abnormal results of pulmonary function studies Category: Medical Plan Reviewed chest CT unfortunately not officially read by Radiology however looks improved since May. Will call patient with final results. At this time his respiratory symptoms seem to be well controlled on current regimen, advised to continue. He is aware of symptoms recur or worsen took office. Did advise patient to follow-up with Infectious Disease as he was supposed to be seen for a six-month follow-up in January and was unaware of this. All questions were answered and patient is in agreement of plan. Will follow-up in 6 months or sooner if needed. Coding Level of Care Code Est Pt Level 4 (71292) Diagnoses Asthma J45.909 Status post partial lobectomy of lung Z90.2 Restrictive ventilatory defect R94.2
[2024-03-17 10:26] VITALS: BP 132/60; PULSE 65; O2SAT 98; BMI 36.2
--- OUTSIDE RECORDS SUMMARY | 2024-03-18 00:17 | XMS_ITS | Clinical Summary ---
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 RESISTANT STAPHYLOCOCC US AUREUS Active 09-16 00:00: 00 ESSENTIAL (PRIMARY) HYPERTENSION Active 04-07 00:00: 00 TYPE 2 DIABETES MELLITUS WITHOUT COMPLICATION S Active 04-07 00:00: 00 HYPERLIPIDEM IA, UNSPECIFIED Active 04-07 00:00: 00 OBSTRUCTIVE SLEEP APNEA (ADULT) (PEDIATRIC) Active 04-07 00:00: 00 THROMBOCYTOP ENIA, UNSPECIFIED Active 04-07 00:00: 00 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 Active 09-16 00:00: 00 SENIOR CARE (CURRENT) USE OF ANTICOAGULAN TS Active 09-16 00:00: 00 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 Active 09-16 00:00: 00 SENIOR CARE (CURRENT) USE OF ORAL HYPOGLYCEMIC DRUGS Active 09-16 00:00: 00 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 Ordering Clinician Indication Dosage Frequency Signature (SIG) Comments Components amlodipine 10 mg tablet 08-30 00:00: 00 Yes [id number] HTN 1 tablet DAILY 1 tablet DAILY (route: oral) Med Classific ation: Cardiovas cular Therapy Agents glipizide 10 mg tablet 08-30 00:00: 00 09-16 00:00 :00 No [id number] Per instruc tions Per instructio ns (route: oral) Med Classific ation: Endocrine lisinopril 40 mg tablet 08-30 00:00: 00 Yes [id number] HTN 1 tablet DAILY 1 tablet DAILY (route: oral) Med Classific ation: Cardiovas cular Therapy Agents metformin 1,000 mg tablet 08-30 00:00: 00 09-16 00:00 :00 No [id number] Per instruc tions Per instructio ns (route: oral) Med Classific ation: Endocrine metoprolol succinate ER 25 mg tablet,exte nded release 24 hr 08-30 00:00: 00 09-16 00:00 :00 No [id number] Per instruc tions Per instructio ns (route: oral) Med Classific ation: Cardiovas cular Therapy Agents furosemide 40 mg tablet 08-06 00:00: 00 09-16 00:00 :00 No [id number] Per instruc tions EVERY Per instructio ns EVERY (route: oral) Med Classific ation: Cardiovas cular Therapy Agents aspirin 81 mg tablet,any yed release 09-16 00:00: 00 Yes [id number] HEART HEALTH 1 tablet DAILY 1 tablet DAILY (route: oral) Med Classific ation: Hematolog ical Agents cefazolin 1 gram intravenous solution 09-16 00:00: 00 10-06 23:59 :00 No [id number] ANTIBIOTIC 2 g EVERY 8 HOURS 2 g EVERY 8 HOURS (route: intravenou s) Med Classific ation: Anti-Infe ctive Agents clindamycin HCl 75 mg capsule 09-16 00:00: 00 Yes [id number] DENTAL PROCEDURE 1 capsule EVERY 8 HOURS 1 capsule EVERY 8 HOURS (route: oral) Med Classific ation: Anti-Infe ctive Agents dextrometho rphan-guaif enesin 10 mg-100 mg/5 mL oral liquid 09-16 00:00: 00 Yes [id number] COUGH 10 mL EVERY 6 HOURS 10 mL EVERY 6 HOURS (route: oral) Med Classific ation: Respirato ry Therapy Agents Jardiance 10 mg tablet 09-16 00:00: 00 Yes [id number] DM 1 tablet DAILY 1 tablet DAILY (route: oral) Med Classific ation: Endocrine metoprolol tartrate 100 mg tablet 09-16 00:00: 00 Yes [id number] HTN 1 tablet 2 TIMES DAILY 1 tablet 2 TIMES DAILY (route: oral) Med Classific ation: Cardiovas cular Therapy Agents pantoprazol e 40 mg tablet,any yed release 09-16 00:00: 00 Yes [id number] GERD 1 tablet DAILY 1 tablet DAILY (route: oral) Med Classific ation: Gastroint estinal Therapy Agents polyethylen e glycol 3350 17 gram/dose oral powder 09-16 00:00: 00 Yes [id number] CONSTIPATIO N 17 gram DAILY 17 gram DAILY (route: oral) Med Classific ation: Gastroint estinal Therapy Agents rosuvastati n 10 mg tablet 09-16 00:00: 00 Yes [id number] HLD 1 tablet DAILY 1 tablet DAILY (route: oral) Med Classific ation: Cardiovas cular Therapy Agents Senna Lax 8.6 mg tablet 09-16 00:00: 00 Yes [id number] CONSTIPATIO N 2 tablet DAILY 2 tablet DAILY (route: oral) Med Classific ation: Gastroint estinal Therapy Agents tamsulosin 0.4 mg capsule 09-16 00:00: 00 Yes [id number] BPH 1 capsule DAILY 1 capsule DAILY (route: oral) Med Classific ation: Genitouri nary Therapy Tradjenta 5 mg tablet 09-16 00:00: 00 Yes [id number] DM 1 tablet DAILY 1 tablet DAILY (route: oral) Med Classific ation: Endocrine Normal Saline Flush 0.9 % injection syringe 09-16 00:00: 00 09-20 14:11 :39.9 53 No [id number] flush 10 mL DIRECTED 10 mL DIRECTED (route: injection) Med Classific ation: Electroly te Balance-N utritiona l Products BD PosiFlush Normal Saline 0.9 % injection syringe 09-16 00:00: 00 Yes [id number] flush 5-10 mL DIRECTED 5-10 mL DIRECTED (route: injection) Med Classific ation: Electroly te Balance-N utritiona l Products acetaminoph en 325 mg tablet 09-16 00:00: 00 Yes [id number] pain 2 tablet EVERY 6 HOURS 2 tablet EVERY 6 HOURS (route: oral) Med Classific ation: Analgesic , Anti-infl ammatory or Antipyret ic benzonatate 100 mg capsule 09-16 00:00: 00 Yes [id number] cough 1 capsule 3 TIMES DAILY 1 capsule 3 TIMES DAILY (route: oral) Med Classific ation: Respirato ry Therapy Agents tramadol 50 mg tablet 10-11 00:00: 00 Yes [id number] PAIN Per instruc tions 3 TIMES DAILY Per instructio ns 3 TIMES DAILY (route: oral) Med Classific ation: Analgesic , Anti-infl ammatory or Antipyret ic Vital Signs Vital Name Observation Time Observation Value Commen ts Temperature 2022-11-06 10:44:00.000 97.3 [degF] Temperature 2022-10-30 09:43:00.000 97.3 [degF] Temperature 2022-10-22 14:38:00.000 97 [degF] Temperature 2022-10-21 09:02:00.000 97.8 [degF] Temperature 2022-10-14 08:13:00.000 97.3 [degF] Temperature 2022-10-11 15:13:00.000 97.9 [degF] Temperature 2022-10-07 09:22:00.000 97.5 [degF] Temperature 2022-10-02 10:21:00.000 97.7 [degF] Temperature 2022-09-30 08:55:00.000 97.4 [degF] Temperature 2022-09-27 12:44:00.000 97.8 [degF] Temperature 2022-09-24 13:34:00.000 97.7 [degF] Temperature 2022-09-23 12:47:00.000 97.4 [degF] Temperature 2022-09-20 11:14:00.000 97.4 [degF] Temperature 2022-09-20 09:26:00.000 98 [degF] Temperature 2022-09-16 18:00:00.000 98.2 [degF] BMI (%) 2022-09-16 18:00:00.000 32 kg/m2 Height 2022-09-16 18:00:00.000 66 [in_us] Pulse 2022-11-06 10:44:00.000 88 /min Pulse 2022-10-30 09:43:00.000 88 /min Pulse 2022-10-22 14:38:00.000 93 /min Pulse 2022-10-21 09:02:00.000 88 /min Pulse 2022-10-14 08:13:00.000 70 /min Pulse 2022-10-11 15:13:00.000 75 /min Pulse 2022-10-07 09:22:00.000 88 /min Pulse 2022-10-02 10:21:00.000 74 /min Pulse 2022-09-30 08:55:00.000 98 /min Pulse 2022-09-27 12:44:00.000 88 /min Pulse 2022-09-24 13:34:00.000 99 /min Pulse 2022-09-23 12:47:00.000 72 /min Pulse 2022-09-20 11:14:00.000 72 /min Pulse 2022-09-20 09:26:00.000 85 /min Pulse 2022-09-16 18:00:00.000 88 /min O2 Saturation (%) 2022-11-06 10:44:00.000 98 % O2 Saturation (%) 2022-10-30 09:43:00.000 99 % O2 Saturation (%) 2022-10-22 14:38:00.000 97 % O2 Saturation (%) 2022-10-21 09:02:00.000 98 % O2 Saturation (%) 2022-10-14 08:13:00.000 98 % O2 Saturation (%) 2022-10-11 15:14:00.000 97 % O2 Saturation (%) 2022-10-07 09:22:00.000 99 % O2 Saturation (%) 2022-10-02 10:21:00.000 97 % O2 Saturation (%) 2022-09-30 08:55:00.000 99 % O2 Saturation (%) 2022-09-27 12:44:00.000 95 % O2 Saturation (%) 2022-09-24 13:34:00.000 96 % O2 Saturation (%) 2022-09-23 12:47:00.000 97 % O2 Saturation (%) 2022-09-20 11:14:00.000 99 % O2 Saturation (%) 2022-09-20 09:27:00.000 95 % O2 Saturation (%) 2022-09-16 18:00:00.000 95 % Respirations 2022-11-06 10:44:00.000 18 /min Respirations 2022-10-30 09:43:00.000 18 /min Respirations 2022-10-22 14:38:00.000 19 /min Respirations 2022-10-21 09:02:00.000 18 /min Respirations 2022-10-14 08:13:00.000 18 /min Respirations 2022-10-11 15:13:00.000 18 /min Respirations 2022-10-07 09:22:00.000 18 /min Respirations 2022-10-02 10:21:00.000 18 /min Respirations 2022-09-30 08:55:00.000 18 /min Respirations 2022-09-27 12:44:00.000 18 /min Respirations 2022-09-24 13:51:00.000 20 /min Respirations 2022-09-23 12:47:00.000 18 /min Respirations 2022-09-20 11:14:00.000 18 /min Respirations 2022-09-20 09:26:00.000 18 /min Respirations 2022-09-16 18:00:00.000 18 /min Weight (lbs) 2022-11-06 10:44:00.000 194 [lb_av] Weight (lbs) 2022-10-30 09:43:00.000 195 [lb_av] Weight (lbs) 2022-10-21 09:02:00.000 193 [lb_av] Weight (lbs) 2022-10-14 08:13:00.000 192 [lb_av] Weight (lbs) 2022-10-07 09:22:00.000 192 [lb_av] Weight (lbs) 2022-09-30 08:55:00.000 190 [lb_av] Weight (lbs) 2022-09-27 12:47:00.000 190 [lb_av] Weight (lbs) 2022-09-24 13:52:00.000 191 [lb_av] Weight (lbs) 2022-09-20 11:14:00.000 200 [lb_av] Weight (lbs) 2022-09-16 18:00:00.000 203 [lb_av] Systolic Blood Pressure 2022-11-06 10:44:00.000 138 mm [Hg] Systolic Blood Pressure 2022-10-30 09:43:00.000 142 mm [Hg] Systolic Blood Pressure 2022-10-22 14:38:00.000 143 mm [Hg] Systolic Blood Pressure 2022-10-21 09:02:00.000 142 mm [Hg] Systolic Blood Pressure 2022-10-14 08:13:00.000 128 mm [Hg] Systolic Blood Pressure 2022-10-11 15:13:00.000 116 mm [Hg] Systolic Blood Pressure 2022-10-07 09:22:00.000 116 mm [Hg] Systolic Blood Pressure 2022-10-02 10:21:00.000 130 mm [Hg] Systolic Blood Pressure 2022-09-30 08:55:00.000 128 mm [Hg] Systolic Blood Pressure 2022-09-27 12:44:00.000 124 mm [Hg] Systolic Blood Pressure 2022-09-24 13:34:00.000 133 mm [Hg] Systolic Blood Pressure 2022-09-23 12:47:00.000 142 mm [Hg] Systolic Blood Pressure 2022-09-20 11:14:00.000 146 mm [Hg] Systolic Blood Pressure 2022-09-20 09:26:00.000 142 mm [Hg] Systolic Blood Pressure 2022-09-16 18:00:00.000 150 mm [Hg] Diastolic Blood Pressure 2022-11-06 10:44:00.000 76 mm [Hg] Diastolic Blood Pressure 2022-10-30 09:43:00.000 72 mm [Hg] Diastolic Blood Pressure 2022-10-22 14:38:00.000 65 mm [Hg] Diastolic Blood Pressure 2022-10-21 09:02:00.000 72 mm [Hg] Diastolic Blood Pressure 2022-10-14 08:13:00.000 60 mm [Hg] Diastolic Blood Pressure 2022-10-11 15:13:00.000 56 mm [Hg] Diastolic Blood Pressure 2022-10-07 09:22:00.000 68 mm [Hg] Diastolic Blood Pressure 2022-10-02 10:21:00.000 68 mm [Hg] Diastolic Blood Pressure 2022-09-30 08:55:00.000 72 mm [Hg] Diastolic Blood Pressure 2022-09-27 12:44:00.000 66 mm [Hg] Diastolic Blood Pressure 2022-09-24 13:34:00.000 55 mm [Hg] Diastolic Blood Pressure 2022-09-23 12:47:00.000 72 mm [Hg] Diastolic Blood Pressure 2022-09-20 11:14:00.000 72 mm [Hg] Diastolic Blood Pressure 2022-09-20 09:26:00.000 78 mm [Hg] Diastolic Blood Pressure 2022-09-16 18:00:00.000 60 mm [Hg] Plan of Treatment Planned Activity Planned Date Details Comments Future Scheduled Test PHYSICAL T HERAPIST TO EVALUATE TREAT INDICATED [code = PHYSICAL THERAPIST TO EVALUATE TREAT INDICATED ] Future Scheduled Test OCCUPATION AL THERAPIST TO EVALUATE TREAT INDICATED [code = OCCUPATIONAL THERAPIST TO EVALUATE TREAT INDICATED ] Future Scheduled Test MEDICATION MANAGEMENT; SKILLED NURSE TO REVIEW MEDICATIONS FOR INTERACTIONS, EFFECTIVENESS OF DRUG THERAPY, AND SIGNS/SYMPTOMS OF ADVERSE REACTIONS. MAY INSTRUCT AND REINFORCE MEDICATION TEACHING RELATED TO THE USE OF MEDICATIONS, DOSAGE, FREQUENCY, PURPOSE, SIDE EFFECTS, AND TO REPORT COMPLICATIONS. [code = MEDICATION MANAGEMENT; SKILLED NURSE TO REVIEW MEDICATIONS FOR INTERACTIONS, EFFECTIVENESS OF DRUG THERAPY, AND SIGNS/SYMPTOMS OF ADVERSE REACTIONS. MAY INSTRUCT AND REINFORCE MEDICATION TEACHING RELATED TO THE USE OF MEDICATIONS, DOSAGE, FREQUENCY, PURPOSE, SIDE EFFECTS, AND TO REPORT COMPLICATIONS.] Future Scheduled Test FALL REDUC TION MANAGEMENT; NURSING TO PROVIDE SKILLED ASSESSMENT, EDUCATION, AND INTERVENTION TO IDENTIFY FALL RISK FACTORS SUCH MEDICATIONS THAT MAY CAUSE DIZZINESS, CHRONIC DISEASES, PSYCHOLOGICAL FACTORS, AND EMPOWER/EDUCATE PATIENT/CAREGIVER TO MINIMIZE FALL RISK. [code = FALL REDUCTION MANAGEMENT; NURSING TO PROVIDE SKILLED ASSESSMENT, EDUCATION, AND INTERVENTION TO IDENTIFY FALL RISK FACTORS SUCH MEDICATIONS THAT MAY CAUSE DIZZINESS, CHRONIC DISEASES, PSYCHOLOGICAL FACTORS, AND EMPOWER/EDUCATE PATIENT/CAREGIVER TO MINIMIZE FALL RISK.] Future Scheduled Test DIABETES M ANAGEMENT; SKILLED NURSE FOR INSTRUCTIONS OF DIABETIC CARE TO INCLUDE: DIET DIABETIC SKIN CARE, SIGNS AND SYMPTOMS OF HYPO/HYPERGLYCEMIA, PROPER ADMINISTRATION OF DIABETIC MEDICATION. SKILLED NURSE TO INSTRUCT ON DIABETIC FOOT CARE AND MONITOR FOR SKIN LESIONS ON LOWER EXTREMITIES. BLOOD GLUCOSE TESTING BID SKILLED NURSE TO ASSESS PATIENT/CAREGIVER ABILITY TO PERFORM AND RECORD BLOOD GLUCOSE TESTING ORDERED AND TO REPORT ABNORMAL FINDINGS TO PHYSICIAN. SKILLED NURSE MAY PERFORM BLOOD GLUCOSE TEST NEEDED. SKILLED NURSE TO REPORT TO PHYSICIAN BLOOD GLUCOSE READINGS GREATER THAN 300 OR LESS THAN 70 SKILLED NURSE TO INSTRUCT PATIENT ON IMPORTANCE OF HGBA1C MONITORING, KIDNEY FUNCTION TEST, EYE AND FOOT EXAMS. [code = DIABETES MANAGEMENT; SKILLED NURSE FOR INSTRUCTIONS OF DIABETIC CARE TO INCLUDE: DIET DIABETIC SKIN CARE, SIGNS AND SYMPTOMS OF HYPO/HYPERGLYCEMIA, PROPER ADMINISTRATION OF DIABETIC MEDICATION. SKILLED NURSE TO INSTRUCT ON DIABETIC FOOT CARE AND MONITOR FOR SKIN LESIONS ON LOWER EXTREMITIES. BLOOD GLUCOSE TESTING BID SKILLED NURSE TO ASSESS PATIENT/CAREGIVER ABILITY TO PERFORM AND RECORD BLOOD GLUCOSE TESTING ORDERED AND TO REPORT ABNORMAL FINDINGS TO PHYSICIAN. SKILLED NURSE MAY PERFORM BLOOD GLUCOSE TEST NEEDED. SKILLED NURSE TO REPORT TO PHYSICIAN BLOOD GLUCOSE READINGS GREATER THAN 300 OR LESS THAN 70 SKILLED NURSE TO INSTRUCT PATIENT ON IMPORTANCE OF HGBA1C MONITORING, KIDNEY FUNCTION TEST, EYE AND FOOT EXAMS.] Future Scheduled Test SKILLED NU RSE TO ASSESS, EVALUATE, AND DEVELOP AN INDIVIDUALIZED PLAN OF CARE. AGENCY MAY ACCEPT ORDERS FROM CONSULTING PHYSICIANS DR GANESH STERN, DR JORGE CHAVEZ, DR LEANDRO BOJORQUEZ. SN TO OBSERVE/ASSESS RISK FOR FALLS AND INSTRUCT IN FALL PREVENTION, HOME SAFETY, MEDICATION MANAGEMENT, INFECTION PREVENTION, AND NUTRITION MANAGEMENT. SN MAY PERFORM O2 SATURATION LEVEL ON ADMISSION AND PRN FOR SOB TO ASSESS PATIENT, WITH NOTIFICATION TO THE PHYSICIAN IF SATURATION IS 90% IN THE ABSENCE OF MORE SPECIFIC PARAMETERS FROM THE PHYSICIAN. AGENCY MAY PERFORM A RESUMPTION OF CARE VISIT FOLLOWING ANY HOSPITAL ADMISSION. SKILLED NURSE TO ASSESS/EVALUATE CO-MORBID CONDITIONS AND ANY NEW CONDITIONS THAT PRESENT THEMSELVES DURING THIS EPISODE TO IDENTIFY CHANGES AND INTERVENE TO MINIMIZE COMPLICATIONS. [code = SKILLED NURSE TO ASSESS, EVALUATE, AND DEVELOP AN INDIVIDUALIZED PLAN OF CARE. AGENCY MAY ACCEPT ORDERS FROM CONSULTING PHYSICIANS DR GANESH STERN, DR JORGE CHAVEZ, DR LEANDRO BOJORQUEZ. SN TO OBSERVE/ASSESS RISK FOR FALLS AND INSTRUCT IN FALL PREVENTION, HOME SAFETY, MEDICATION MANAGEMENT, INFECTION PREVENTION, AND NUTRITION MANAGEMENT. SN MAY PERFORM O2 SATURATION LEVEL ON ADMISSION AND PRN FOR SOB TO ASSESS PATIENT, WITH NOTIFICATION TO THE PHYSICIAN IF SATURATION IS 90% IN THE ABSENCE OF MORE SPECIFIC PARAMETERS FROM THE PHYSICIAN. AGENCY MAY PERFORM A RESUMPTION OF CARE VISIT FOLLOWING ANY HOSPITAL ADMISSION. SKILLED NURSE TO ASSESS/EVALUATE CO-MORBID CONDITIONS AND ANY NEW CONDITIONS THAT PRESENT THEMSELVES DURING THIS EPISODE TO IDENTIFY CHANGES AND INTERVENE TO MINIMIZE COMPLICATIONS.] Future Scheduled Test PAIN MANAG EMENT; SKILLED NURSE TO OBSERVE, ASSESS, AND PROVIDE EDUCATION ON PAIN MANAGEMENT TECHNIQUES. [code = PAIN MANAGEMENT; SKILLED NURSE TO OBSERVE, ASSESS, AND PROVIDE EDUCATION ON PAIN MANAGEMENT TECHNIQUES.] Future Scheduled Test IV THERAPY MANAGEMENT; SKILLED NURSE FOR OBSERVATION / ASSESSMENT OF IV ACCESS SITE , RESPONSE TO MEDICATION. SN FOR SKILLED TEACHING REGARDING INFUSION PROCEDURE, CARE OF ACCESS DEVICE, SIGNS AND SYMPTOMS OF ACCESS DEVICE COMPLICATIONS AND, CARE AND USE OF INFUSION EQUIPMENT. [code = IV THERAPY MANAGEMENT; SKILLED NURSE FOR OBSERVATION / ASSESSMENT OF IV ACCESS SITE , RESPONSE TO MEDICATION. SN FOR SKILLED TEACHING REGARDING INFUSION PROCEDURE, CARE OF ACCESS DEVICE, SIGNS AND SYMPTOMS OF ACCESS DEVICE COMPLICATIONS AND, CARE AND USE OF INFUSION EQUIPMENT.] Future Scheduled Test IV THERAPY ADMINISTRATION; SKILLED NURSE TO OBTAIN IV ACCESS VIA LUE MIDLINE. SKILLED NURSE TO INFUSE AND/OR TEACH PATIENT/CAREGIVER INFUSION OF CEFAZOLIN (MEDICATION/SOLUTION) AT 20 CC/3-5 MINS VIA PUSH. CHANGE PRN FOR LOOSE OR SOILED DRESSINGS. INJECTION CAP CHANGE WEEKLY AND WITH EACH LAB DRAW AND PRN FOR CONTAMINATION OR MALFUNCTION. EXTENSION TUBING TO BE CHANGED WEEKLY AND WITH EACH LAB DRAW AND PRN FOR PROBLEMS. SKIN PREP PRN; SECUREMENT DEVICE PRN. BIOPATCH PRN FOR REDNESS OR NEUTROPENIA. SN TO PERFORM/INSTRUCT PATIENT/CAREGIVER TO FLUSH IV ACCESS WITH SAS SN TO PERFORM SITE CARE FOR INFUSION ACCESS DEVICE WITH DRESSING CHANGE TO INCLUDE SN TO CLEANSE ACCESS SITE WITH CHLORHEXADINE ALLOW TO AIR DRY AND THEN APPLY DRESSING APPLIED TO ACCESS SITE COVER WITH TRANSPARENT DRESSING FREQUENCY WEEKLY. [code = IV THERAPY ADMINISTRATION; SKILLED NURSE TO OBTAIN IV ACCESS VIA LUE MIDLINE. SKILLED NURSE TO INFUSE AND/OR TEACH PATIENT/CAREGIVER INFUSION OF CEFAZOLIN (MEDICATION/SOLUTION) AT 20 CC/3-5 MINS VIA PUSH. CHANGE PRN FOR LOOSE OR SOILED DRESSINGS. INJECTION CAP CHANGE WEEKLY AND WITH EACH LAB DRAW AND PRN FOR CONTAMINATION OR MALFUNCTION. EXTENSION TUBING TO BE CHANGED WEEKLY AND WITH EACH LAB DRAW AND PRN FOR PROBLEMS. SKIN PREP PRN; SECUREMENT DEVICE PRN. BIOPATCH PRN FOR REDNESS OR NEUTROPENIA. SN TO PERFORM/INSTRUCT PATIENT/CAREGIVER TO FLUSH IV ACCESS WITH SAS SN TO PERFORM SITE CARE FOR INFUSION ACCESS DEVICE WITH DRESSING CHANGE TO INCLUDE SN TO CLEANSE ACCESS SITE WITH CHLORHEXADINE ALLOW TO AIR DRY AND THEN APPLY DRESSING APPLIED TO ACCESS SITE COVER WITH TRANSPARENT DRESSING FREQUENCY WEEKLY.] Future Scheduled Test LAB DRAW V IA VASCULAR ACCESS DEVICE; SKILLED NURSE TO PERFORM LAB DRAW FROM ACCESS DEVICE. DRAW CBC W/DIFF, ESR, CRP, LIVER PANEL, SCR, EVERY MON. SKILLED NURSE TO DRAW LABS VIA VENIPUNCTURE PRN IF UNABLE TO DRAW VIA VASCULAR ACCESS DEVICE. [code = LAB DRAW VIA VASCULAR ACCESS DEVICE; SKILLED NURSE TO PERFORM LAB DRAW FROM ACCESS DEVICE. DRAW CBC W/DIFF, ESR, CRP, LIVER PANEL, SCR, EVERY MON. SKILLED NURSE TO DRAW LABS VIA VENIPUNCTURE PRN IF UNABLE TO DRAW VIA VASCULAR ACCESS DEVICE.] Future Scheduled Test PRN VISITS ; NUMBER OF SN PRN VISITS: 2 SKILL TO PERFORM: IV ASSESSMENT FOR THE FOLLOWING REASONS: IV COMPLICATIONS [code = PRN VISITS; NUMBER OF SN PRN VISITS: 2 SKILL TO PERFORM: IV ASSESSMENT FOR THE FOLLOWING REASONS: IV COMPLICATIONS] Future Scheduled Test RISK FOR H OSPITALIZATION; SKILLED NURSE TO INSTRUCT PATIENT/CAREGIVER ON RISK FOR HOSPITALIZATION/EMERGENCY ROOM VISITS, TEACH SIGNS AND SYMPTOMS THAT PUT PATIENT AT RISK, WHEN TO NOTIFY NURSE/PHYSICIAN OF COMPLICATIONS/DECLINE, AND WHEN TO CALL 911. [code = RISK FOR HOSPITALIZATION; SKILLED NURSE TO INSTRUCT PATIENT/CAREGIVER ON RISK FOR HOSPITALIZATION/EMERGENCY ROOM VISITS, TEACH SIGNS AND SYMPTOMS THAT PUT PATIENT AT RISK, WHEN TO NOTIFY NURSE/PHYSICIAN OF COMPLICATIONS/DECLINE, AND WHEN TO CALL 911.] Future Scheduled Test CARDIOVASC ULAR SYSTEM; SKILLED NURSE TO ASSESS AND TEACH RELATED TO ALTERED CARDIOVASCULAR STATUS TO MINIMIZE COMPLICATIONS AND REDUCE HOSPITALIZATION. [code = CARDIOVASCULAR SYSTEM; SKILLED NURSE TO ASSESS AND TEACH RELATED TO ALTERED CARDIOVASCULAR STATUS TO MINIMIZE COMPLICATIONS AND REDUCE HOSPITALIZATION.] Future Scheduled Test AGENCY MAY PERFORM A RESUMPTION OF CARE VISIT FOLLOWING ANY HOSPITAL ADMISSION. PHYSICAL THERAPY TO EVALUATE, ASSESS AND MONITOR, PROVIDE SKILLED THERAPEUTIC INTERVENTION, ACTIVITY, EDUCATION, AND TRAINING TO ADDRESS: TRANSFER TRAINING (PT) GAIT TRAINING (PT) NEUROMUSCULAR RE-EDUCATION / BALANCE RETRAINING (PT) THERAPEUTIC EXERCISES (PT) STAIR TRAINING (PT) ENERGY CONSERVATION (PT) IDENTIFY FALL RISK FACTORS AND ESTABLISH HOME EXERCISE PROGRAM TO MINIMIZE FALL RISK. MAY TEACH THE PATIENT FLOOR RECOVERY WHEN CLINICALLY APPROPRIATE (PT) OXYGEN SATURATION (PT). NOTIFY MD IF 02SATS BELOW 90% AFTER 10 MIN OF REST. PAIN MANAGEMENT (PT) PNEUMONIA SELF-MANAGEMENT (PT) [code = AGENCY MAY PERFORM A RESUMPTION OF CARE VISIT FOLLOWING ANY HOSPITAL ADMISSION. PHYSICAL THERAPY TO EVALUATE, ASSESS AND MONITOR, PROVIDE SKILLED THERAPEUTIC INTERVENTION, ACTIVITY, EDUCATION, AND TRAINING TO ADDRESS: TRANSFER TRAINING (PT) GAIT TRAINING (PT) NEUROMUSCULAR RE-EDUCATION / BALANCE RETRAINING (PT) THERAPEUTIC EXERCISES (PT) STAIR TRAINING (PT) ENERGY CONSERVATION (PT) IDENTIFY FALL RISK FACTORS AND ESTABLISH HOME EXERCISE PROGRAM TO MINIMIZE FALL RISK. MAY TEACH THE PATIENT FLOOR RECOVERY WHEN CLINICALLY APPROPRIATE (PT) OXYGEN SATURATION (PT). NOTIFY MD IF 02SATS BELOW 90% AFTER 10 MIN OF REST. PAIN MANAGEMENT (PT) PNEUMONIA SELF-MANAGEMENT (PT) ] Future Scheduled Test OCCUPATION AL THERAPY EVALUATION PERFORMED. NO ADDITIONAL VISITS REQUIRED. PROVIDED SKILLED INTERVENTION INCLUDING EDUCATION REGARDING ENERGY CONSERVATION TECHNIQUES AND FALL PREVENTION STRATEGIES. REVIEWED CALL US FIRST PROCEDURES. [code = OCCUPATIONAL THERAPY EVALUATION PERFORMED. NO ADDITIONAL VISITS REQUIRED. PROVIDED SKILLED INTERVENTION INCLUDING EDUCATION REGARDING ENERGY CONSERVATION TECHNIQUES AND FALL PREVENTION STRATEGIES. REVIEWED CALL US FIRST PROCEDURES. ] Goal 2022-11-06 Patient Goal - F INISH ABT AND GET BACK TO PLOF Goal Provider Goal - Goal Provider Goal - Goal Provider Goal - PATIENT/CAREGIVER TO VERBALIZE, AND CONSISTENTLY DEMONSTRATE EFFECTIVE, SAFE MANAGEMENT OF MEDICATION INCLUDING KNOWLEDGE OF EFFECTIVENESS, POTENTIAL SIDE EFFECTS AND DRUG REACTIONS AND WHEN TO CONTACT THE APPROPRIATE CARE PROVIDER. PATIENT/CAREGIVER WILL BE ABLE TO VERBALIZE UNDERSTANDING OF MEDICATION REGIMEN AND ACCURATELY TAKE MEDICATIONS PRESCRIBED WITHOUT ADVERSE EFFECTS BY 11/14/21 Goal Provider Goal - PATIENT/CAREGIVER ABLE TO IDENTIFY FALL RISK FACTORS AND IMPLEMENT STRATEGIES TO MINIMIZE FALL RISK. PATIENT/CAREGIVER WILL VERBALIZE/DEMONSTRATE AN ABILITY TO ADHERE TO FALL REDUCTION SELF MANAGEMENT AND LIFE-STYLE CHANGES AT DISCHARGE. PERSONAL GOAL(S) STATED BY PATIENT/CAREGIVER WILL BE MET BY 11/14/22. Goal Provider Goal - PATIENT / CAREGIVER WILL VERBALIZE / DEMONSTRATE AN ABILITY TO ADHERE TO SELF-MANAGEMENT OF DIABETES MANAGEMENT BY 11/14/22. Goal Provider Goal - A PLAN OF CARE WILL BE ESTABLISHED THAT MEETS THE PATIENTS NEEDS. PATIENT WILL DEMONSTRATE OXYGEN SATURATION WITHIN NORMAL LIMITS OR PATIENTS OPTIMAL LEVEL ESTABLISHED BY THE PHYSICIAN THROUGHOUT CARE. CHANGES TO CO-MORBID CONDITIONS AND ANY NEW CONDITIONS WILL BE IDENTIFIED AND REPORTED TO THE PHYSICIAN. Goal Provider Goal - PATIENT / CAREGIVER WILL VERBALIZE / DEMONSTRATE UNDERSTANDING OF PAIN CONTROL MEASURES BY 11/14/22 Goal Provider Goal - PATIENT / CAREGIVER WILL VERBALIZE/DEMONSTRATE ABILITY TO CARE FOR ADMINISTER IV ADEQUATELY BY 11/14/22 Goal Provider Goal - PATIENT WILL VERBALIZE/DEMONSTRATE TOLERANCE TO INFUSION PROCEDURE BY 11/14/22. Goal Provider Goal - PATIENT WILL VERBALIZE TOLERANCE TO LAB DRAW FROM VASCULAR ACCESS DEVICE BY 11/14/22. Goal Provider Goal - Goal Provider Goal - PATIENT/CAREGIVER WILL VERBALIZE UNDERSTANDING OF SIGNS AND SYMPTOMS THAT PUT THE PATIENT AT RISK FOR HOSPITALIZATION /EMERGENCY ROOM VISITS, WHEN TO NOTIFY NURSE/PHYSICIAN OF COMPLICATIONS/DECLINE AND WHEN TO CALL 911. Goal Provider Goal - PATIENT / CAREGIVER WILL VERBALIZE/DEMONSTRATE UNDERSTANDING OF MEASURES TO MANAGE ALTERED CARDIOVASCULAR STATUS BY 11/14/22. Goal Provider Goal - PATIENT WILL IMPROVE HOUSEHOLD TRANSFERS FROM CGA TO INDEPENDENT IN 4 WEEKS TO PROMOTE IMPROVED FUNCTIONAL MOBILITY PATIENT WILL IMPROVE HOUSEHOLD GAIT AND STAIRS FROM CGA TO INDEPENDENT IN 8 WEEKS WITHOUT AD USE TO PROMOTE SAFE NAVIGATION THROUGHOUT HOME ENVIRONMENT AND COMMUNITY PATIENT WILL IMPROVE TUG SCORE FROM 21 TO 15 SECONDS AND GAIT SPEED FROM 0.7 M/S TO 0.9 M/S PATIENT WILL DEMO INDEP PERFORMANCE OF STANDING THEREX AND BALANCE ACTIVITY IN 5 WEEKS TO PROMOTE IMPROVED FUNCTIONAL MOBILITY PATIENT WILL DEMO INDEP USE OF PACING AND BREATHING TECHNIQUES FOR CONDITION MANAGEMENT IN 4 WEEKS PATIENT/CAREGIVER WILL DEMONSTRATE ADHERENCE TO FALL REDUCTION SELF MANAGEMENT TO MINIMIZE FALL BY END OF EPISODE. PATIENT WILL MAINTAIN OXYGEN SATURATION WITHIN PHYSICIAN ORDERED PARAMETERS THROUGHOUT EPISODE OF CARE PT GOAL: PATIENT/CAREGIVER WILL VERBALIZE UNDERSTANDING OF PAIN MANAGEMENT BY END OF EPISODE. PATIENT / CAREGIVER WILL DEMONSTRATE ADHERENCE TO PNEUMONIA SELF-MANAGEMENT BY END OF EPISODE. Goal Provider Goal - Reason for Visit INDEPENDENT IN THE COMMUNITY Encounters Start Date/Time End Date/Time Encounter Type Admission Type Attending [facility] Care Department Encounter ID Discharge Date Discharge Status Discharge Condition Discharge Reason Percent Goals Met 2022-09-16 00:00:00 2022-11-06 00:00:00 Outpatient NEW ADMISSION JONA PINEDA [facility] [id number] 2022-11-06 00:00:00 DISCHARGE TO HOME OR SELF CARE INDEPENDEN T IN THE COMMUNITY HH OR PAL- GOALS MET 73.81
--- OUTSIDE RECORDS SUMMARY | 2024-03-18 00:17 | XMS_ITS ---
Author Name [facility] Organization Unknown History of Medication Use Medication Directions Dispensed Refills Start Date End Date Stat acetaminophen (TYLENOL) 325 MG tablet Take 2 tablets (650 mg total) by mouth 4 times daily (every 6 hours) as needed for mild pain or moderate pain. 09/18/2022 active guaiFENesin (MUCINEX) 600 MG 12 hr tablet Take 1 tablet (600 mg total) by mouth 2 times daily (every 12 hours) as needed for cough or congestion. 09/18/2022 active ceFAZolin 2 g in sodium chloride 0.9 % 50 mL IVPB Infuse 2 g into a venous catheter 3 times daily (every 8 hours). 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 Unless otherwise directed by Dr. Escalante ([phone]) 09/18/2022 active clindamycin (CLEOCIN) 75 MG capsule Take 1 capsule (75 mg total) by mouth 3 (three) times a day. 09/18/2022 active benzonatate (TESSALON) 100 MG capsule Take 1 capsule (100 mg total) by mouth 3 (three) times a day as needed for cough. 09/18/2022 active metoPROLOL SUCCINATE (TOPROL-XL) 200 MG 24 hr tablet Take 1 tablet (200 mg total) by mouth daily. 10/11/2022 active linagliptin (TRADJENTA) 5 MG Tab Take 1 tablet (5 mg total) by mouth daily. Do not start before September 17, 2022. 09/18/2022 active senna (SENOKOT) 8.6 MG Tab tablet Take 2 tablets by mouth daily as needed for constipation. 09/18/2022 active lisinopril (PRINIVIL,ZeSTRIL) 40 MG tablet Take 1 tablet (40 mg total) by mouth daily. Do not start before September 17, 2022. 09/18/2022 active HYDROmorphone (DILAUDID) 2 MG tablet Take 1 tablet (2 mg total) by mouth 4 times daily (every 6 hours) as needed for severe pain. Max Daily Amount: 8 mg 09/18/2022 active rosuvastatin (CRESTOR) 10 MG tablet Take 1 tablet (10 mg total) by mouth daily. Do not start before September 17, 2022. 09/18/2022 active ibuprofen (MOTRIN) 400 MG tablet Take 1 tablet (400 mg total) by mouth 4 times daily (every 6 hours) as needed for mild pain or moderate pain. 09/18/2022 active traMADol (ULTRAM) 50 MG tablet Take 1 tablet (50 mg total) by mouth 3 times daily (every 8 hours) as needed for severe pain. 09/27/2022 active cephalexin (KEFLEX) 500 MG capsule Take 2 capsules (1,000 mg total) by mouth 2 (two) times a day. 10/06/2022 aborted empagliflozin (JARDIANCE) 10 MG tablet Take 1 tablet (10 mg total) by mouth daily. Do not start before September 17, 2022. 09/18/2022 active tamsulosin (FLOMAX) 0.4 MG capsule Take 1 capsule (0.4 mg total) by mouth nightly. 09/18/2022 active metoPROLOL TARTRATE (LOPRESSOR) 100 MG tablet Take 1 tablet (100 mg total) by mouth every 12 (twelve) hours around the clock. 09/18/2022 aborted sodium chloride (NS FLUSH) 0.9 % Solution Flush PICC line with 5 ml pre and post use of PICC line and 5 ml pre / 10 ml post lab draws. 09/18/2022 active amLODIPine (NORVASC) 10 MG tablet Take 1 tablet (10 mg total) by mouth daily. Do not start before September 17, 2022. 09/18/2022 active cephalexin (KEFLEX) 500 MG capsule Take 1 capsule (500 mg total) by mouth 2 (two) times a day. 10/02/2022 active aspirin enteric coated (ECOTRIN LOW STRENGTH) 81 MG EC tablet Take 1 tablet (81 mg total) by mouth daily. Do not start before September 17, 2022. 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
== END 2024-03-17 10:46 | disposition home or self-care (01) ==
PROVIDERS: PCP Student in an Organized Health Care Education/Training Program; Visit Provider Nurse Practitioner Family
DX: J45.909 Unspecified asthma, uncomplicated (principal); Z90.2 Acquired absence of lung [part of]; R94.2 Abnormal results of pulmonary function studies
CPT/HCPCS: 99214

== ENCOUNTER → 2024-03-17 10:19 | Outpatient (BNVA) | payer MEDICARE, MEDICAID, SELFPAY | PROVIDERS: PCP Student in an Organized Health Care Education/Training Program; Visit Provider Nurse Practitioner Family | DX: J45.909 Unspecified asthma, uncomplicated (principal); R94.2 Abnormal results of pulmonary function studies; Z90.2 Acquired absence of lung [part of]; Z87.891 Personal history of nicotine dependence | CPT/HCPCS: 99212 ==

== ENCOUNTER 2024-03-22 14:10 | Outpatient (AMB) | payer MEDICARE, MEDICAID, SELFPAY ==
--- OUTSIDE RECORDS SUMMARY | 2024-03-22 14:12 | XMS_ITS | Clinical Summary ---
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 Active 09-16 00:00: 00 RESIDENTIAL (CURRENT) USE OF ORAL HYPOGLYCEMIC DRUGS Active [...] 10 mg tablet 08-30 00:00: 00 Yes [id number] HTN 1 tablet DAILY 1 tablet DAILY (route: oral) Med Classific ation: Cardiovas cular Therapy Agents glipizide 10 mg tablet 08-30 00:00: 00 09-16 00:00 :00 No [id number] Per instruc tions Per instructio ns (route: oral) Med Classific ation: Endocrine lisinopril 40 mg tablet 08-30 00:00: 00 Yes [id number] HTN 1 tablet DAILY 1 tablet DAILY (route: oral) Med Classific ation: Cardiovas cular Therapy Agents metformin 1,000 mg tablet 08-30 00:00: 00 09-16 00:00 :00 No [id number] Per instruc tions Per instructio ns (route: oral) Med Classific ation: Endocrine metoprolol succinate ER 25 mg tablet,exte nded release 24 hr 08-30 00:00: 00 09-16 00:00 :00 No [id number] Per instruc tions Per instructio ns (route: oral) Med Classific ation: Cardiovas cular Therapy Agents furosemide 40 mg tablet 08-06 00:00: 00 09-16 00:00 :00 No [id number] Per instruc tions EVERY Per instructio ns EVERY (route: oral) Med Classific ation: Cardiovas cular Therapy Agents aspirin 81 mg tablet,any yed release 09-16 00:00: 00 Yes [id number] HEART HEALTH 1 tablet DAILY 1 tablet DAILY (route: oral) Med Classific ation: Hematolog ical Agents cefazolin 1 gram intravenous solution 09-16 00:00: 00 10-06 23:59 :00 No [id number] ANTIBIOTIC 2 g EVERY 8 HOURS 2 g EVERY 8 HOURS (route: intravenou s) Med Classific ation: Anti-Infe ctive Agents clindamycin HCl 75 mg capsule 09-16 00:00: 00 Yes [id number] DENTAL PROCEDURE 1 capsule EVERY 8 HOURS 1 capsule EVERY 8 HOURS (route: oral) Med Classific ation: Anti-Infe ctive Agents dextrometho rphan-guaif enesin 10 mg-100 mg/5 mL oral liquid 09-16 00:00: 00 Yes [id number] COUGH 10 mL EVERY 6 HOURS 10 mL EVERY 6 HOURS (route: oral) Med Classific ation: Respirato ry Therapy Agents Jardiance 10 mg tablet 09-16 00:00: 00 Yes [id number] DM 1 tablet DAILY 1 tablet DAILY (route: oral) Med Classific ation: Endocrine metoprolol tartrate 100 mg tablet 09-16 00:00: 00 Yes [id number] HTN 1 tablet 2 TIMES DAILY 1 tablet 2 TIMES DAILY (route: oral) Med Classific ation: Cardiovas cular Therapy Agents pantoprazol e 40 mg tablet,any yed release 09-16 00:00: 00 Yes [id number] GERD 1 tablet DAILY 1 tablet DAILY (route: oral) Med Classific ation: Gastroint estinal Therapy Agents polyethylen e glycol 3350 17 gram/dose oral powder 09-16 00:00: 00 Yes [id number] CONSTIPATIO N 17 gram DAILY 17 gram DAILY (route: oral) Med Classific ation: Gastroint estinal Therapy Agents rosuvastati n 10 mg tablet 09-16 00:00: 00 Yes [id number] HLD 1 tablet DAILY 1 tablet DAILY (route: oral) Med Classific ation: Cardiovas cular Therapy Agents Senna Lax 8.6 mg tablet 09-16 00:00: 00 Yes [id number] CONSTIPATIO N 2 tablet DAILY 2 tablet DAILY (route: oral) Med Classific ation: Gastroint estinal Therapy Agents tamsulosin 0.4 mg capsule 09-16 00:00: 00 Yes [id number] BPH 1 capsule DAILY 1 capsule DAILY (route: oral) Med Classific ation: Genitouri nary Therapy Tradjenta 5 mg tablet 09-16 00:00: 00 Yes [id number] DM 1 tablet DAILY 1 tablet DAILY (route: oral) Med Classific ation: Endocrine Normal Saline Flush 0.9 % injection syringe 09-16 00:00: 00 09-20 14:11 :39.9 53 No [id number] flush 10 mL DIRECTED 10 mL DIRECTED (route: injection) Med Classific ation: Electroly te Balance-N utritiona l Products BD PosiFlush Normal Saline 0.9 % injection syringe 09-16 00:00: 00 Yes [id number] flush 5-10 mL DIRECTED 5-10 mL DIRECTED (route: injection) Med Classific ation: Electroly te Balance-N utritiona l Products acetaminoph en 325 mg tablet 09-16 00:00: 00 Yes [id number] pain 2 tablet EVERY 6 HOURS 2 tablet EVERY 6 HOURS (route: oral) Med Classific ation: Analgesic , Anti-infl ammatory or Antipyret ic benzonatate 100 mg capsule 09-16 00:00: 00 Yes [id number] cough 1 capsule 3 TIMES DAILY 1 capsule 3 TIMES DAILY (route: oral) Med Classific ation: Respirato ry Therapy Agents tramadol 50 mg tablet 10-11 00:00: 00 Yes [id number] PAIN Per instruc tions 3 TIMES DAILY [...] End Date/Time Encounter Type Admission Type Attending [facility] Care Department Encounter ID Discharge Date Discharge Status Discharge Condition Discharge Reason Percent Goals Met 2022-09-16 00:00:00 2022-11-06 00:00:00 Outpatient NEW ADMISSION JONA PINEDA [facility] [id number] 2022-11-06 00:00:00 DISCHARGE TO HOME OR SELF CARE INDEPENDEN T IN THE COMMUNITY HH OR PAL- GOALS MET 73.81
--- OUTSIDE RECORDS SUMMARY | 2024-03-22 14:13 | XMS_ITS | Clinical Summary ---
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 Active 09-16 00:00: 00 SKILLED NURSING (CURRENT) USE OF ORAL HYPOGLYCEMIC DRUGS Active [...] 10 mg tablet 08-30 00:00: 00 Yes [id number] HTN 1 tablet DAILY 1 tablet DAILY (route: oral) Med Classific ation: Cardiovas cular Therapy Agents glipizide 10 mg tablet 08-30 00:00: 00 09-16 00:00 :00 No [id number] Per instruc tions Per instructio ns (route: oral) Med Classific ation: Endocrine lisinopril 40 mg tablet 08-30 00:00: 00 Yes [id number] HTN 1 tablet DAILY 1 tablet DAILY (route: oral) Med Classific ation: Cardiovas cular Therapy Agents metformin 1,000 mg tablet 08-30 00:00: 00 09-16 00:00 :00 No [id number] Per instruc tions Per instructio ns (route: oral) Med Classific ation: Endocrine metoprolol succinate ER 25 mg tablet,exte nded release 24 hr 08-30 00:00: 00 09-16 00:00 :00 No [id number] Per instruc tions Per instructio ns (route: oral) Med Classific ation: Cardiovas cular Therapy Agents furosemide 40 mg tablet 08-06 00:00: 00 09-16 00:00 :00 No [id number] Per instruc tions EVERY Per instructio ns EVERY (route: oral) Med Classific ation: Cardiovas cular Therapy Agents aspirin 81 mg tablet,any yed release 09-16 00:00: 00 Yes [id number] HEART HEALTH 1 tablet DAILY 1 tablet DAILY (route: oral) Med Classific ation: Hematolog ical Agents cefazolin 1 gram intravenous solution 09-16 00:00: 00 10-06 23:59 :00 No [id number] ANTIBIOTIC 2 g EVERY 8 HOURS 2 g EVERY 8 HOURS (route: intravenou s) Med Classific ation: Anti-Infe ctive Agents clindamycin HCl 75 mg capsule 09-16 00:00: 00 Yes [id number] DENTAL PROCEDURE 1 capsule EVERY 8 HOURS 1 capsule EVERY 8 HOURS (route: oral) Med Classific ation: Anti-Infe ctive Agents dextrometho rphan-guaif enesin 10 mg-100 mg/5 mL oral liquid 09-16 00:00: 00 Yes [id number] COUGH 10 mL EVERY 6 HOURS 10 mL EVERY 6 HOURS (route: oral) Med Classific ation: Respirato ry Therapy Agents Jardiance 10 mg tablet 09-16 00:00: 00 Yes [id number] DM 1 tablet DAILY 1 tablet DAILY (route: oral) Med Classific ation: Endocrine metoprolol tartrate 100 mg tablet 09-16 00:00: 00 Yes [id number] HTN 1 tablet 2 TIMES DAILY 1 tablet 2 TIMES DAILY (route: oral) Med Classific ation: Cardiovas cular Therapy Agents pantoprazol e 40 mg tablet,any yed release 09-16 00:00: 00 Yes [id number] GERD 1 tablet DAILY 1 tablet DAILY (route: oral) Med Classific ation: Gastroint estinal Therapy Agents polyethylen e glycol 3350 17 gram/dose oral powder 09-16 00:00: 00 Yes [id number] CONSTIPATIO N 17 gram DAILY 17 gram DAILY (route: oral) Med Classific ation: Gastroint estinal Therapy Agents rosuvastati n 10 mg tablet 09-16 00:00: 00 Yes [id number] HLD 1 tablet DAILY 1 tablet DAILY (route: oral) Med Classific ation: Cardiovas cular Therapy Agents Senna Lax 8.6 mg tablet 09-16 00:00: 00 Yes [id number] CONSTIPATIO N 2 tablet DAILY 2 tablet DAILY (route: oral) Med Classific ation: Gastroint estinal Therapy Agents tamsulosin 0.4 mg capsule 09-16 00:00: 00 Yes [id number] BPH 1 capsule DAILY 1 capsule DAILY (route: oral) Med Classific ation: Genitouri nary Therapy Tradjenta 5 mg tablet 09-16 00:00: 00 Yes [id number] DM 1 tablet DAILY 1 tablet DAILY (route: oral) Med Classific ation: Endocrine Normal Saline Flush 0.9 % injection syringe 09-16 00:00: 00 09-20 14:11 :39.9 53 No [id number] flush 10 mL DIRECTED 10 mL DIRECTED (route: injection) Med Classific ation: Electroly te Balance-N utritiona l Products BD PosiFlush Normal Saline 0.9 % injection syringe 09-16 00:00: 00 Yes [id number] flush 5-10 mL DIRECTED 5-10 mL DIRECTED (route: injection) Med Classific ation: Electroly te Balance-N utritiona l Products acetaminoph en 325 mg tablet 09-16 00:00: 00 Yes [id number] pain 2 tablet EVERY 6 HOURS 2 tablet EVERY 6 HOURS (route: oral) Med Classific ation: Analgesic , Anti-infl ammatory or Antipyret ic benzonatate 100 mg capsule 09-16 00:00: 00 Yes [id number] cough 1 capsule 3 TIMES DAILY 1 capsule 3 TIMES DAILY (route: oral) Med Classific ation: Respirato ry Therapy Agents tramadol 50 mg tablet 10-11 00:00: 00 Yes [id number] PAIN Per instruc tions 3 TIMES DAILY [...] End Date/Time Encounter Type Admission Type Attending [facility] [place] Care Department Encounter ID Discharge Date Discharge Status Discharge Condition Discharge Reason Percent Goals Met 2022-09-16 00:00:00 2022-11-06 00:00:00 Outpatient NEW ADMISSION JONA PINEDA [facility] [id number] 2022-11-06 00:00:00 DISCHARGE TO HOME OR SELF CARE INDEPENDEN T IN THE COMMUNITY HH OR PAL- GOALS MET 73.81
[2024-03-22 14:26] VITALS: PULSE 75; O2SAT 99; BMI 37.0
--- NOTE | 2024-03-22 14:26 | A.OFFVIS_ITS ---
Vital Signs 03/22/24 14:26 Height 5 ft 6 in Weight 229 lb BMI 37.0 Pulse 75 Pulse Source Pulse Oximeter Pulse Oximetry (%) 99 Oxygen Delivery Method Room Air Intake Visit Reasons: follow up 6mo cephalexin med Allergies cinnamon Allergy (Severe, Verified 03/22/24 14:31) Swelling Penicillins Allergy (Mild, Verified 03/22/24 14:31) RASH lisinopril Adverse Reaction (Intermediate, Verified 03/22/24 14:31) Cough HPI HPI follow up 6mo cephalexin med: Details: He has prophylactic cephalosporin He has no complaints. [facility] Medical History (Updated 03/29/24 @ 01:02 by Belinda Sears MD) Family history of anesthesia complication Arthritis Vertigo MSSA (methicillin susceptible Staphylococcus aureus) infection Sludge in gallbladder Diabetes HTN (hypertension) Coarctation of aorta Asthma Surgical History History of uvulopalatopharyngoplasty Hx of tonsillectomy Hx of heart surgery Hx of heart surgery Hx of circumcision S/P lobectomy of lung Status post aortic coarctation stent placement Social History Are you a primary social worker palliative care to a significant other at home: No Do you presently have visiting nurse or other home services: No Alcohol intake: current Alcohol intake frequency: former alcohol drinker Patient Tobacco Use Status: Former Tobacco user Tobacco use type: Cigarette Cigarette Packs Per Day: 0.5 Years Smoked: 5 Substance Use Type: Marijuana Current occupational status: disabled Current occupation: right hand dominant Review of Systems Const All systems reviewed & are unremarkable except as noted in HPI and below Physical Exam Vital Signs: Last Vital Signs Pulse 75 03/22/24 14:26 Pulse Ox 99 03/22/24 14:26 Oxygen Delivery Method Room Air 03/22/24 14:26 BMI result Body Mass Index 37.0 Const General: cooperative Orientation/consciousness: patient oriented x3 HEENT Head: Yes normal to inspection Mouth: Normal oral and palatal mucosa present Eyes General: appearance normal, both eyes and all related structures Pupils: Equal, round and reactive pupils present Resp Effort & Inspection: normal respiratory effort Cardio Rate: regular rate Rhythm: regular rhythm GI Palpation (GI): Soft to palpation and nontender General: Yes no CVA tenderness Back/Spine/Pelvis Back: no CVA tenderness Skin General skin exam: no rashes or lesions noted Neuro General: patient oriented x3 Cranial nerves: Yes CN's II-XII intact bilaterally and Yes Equal, round and reactive pupils present Extrem General: Yes normal to inspection Psych Appearance: grossly normal Assessment & Plan Assessment & Plan (1) MSSA (methicillin susceptible Staphylococcus aureus) infection: Comment: 2019-post aortic stent Code(s): A49.01 - Methicillin susceptible Staphylococcus aureus infection, unspecified site Category: Medical Plan: He has been doing well. Medications: Refilled cephalexin 500 mg PO BID 60 caps 11RF 30 days Coding Level of Care Code Est Pt Level 3 (74316) Diagnoses MSSA (methicillin susceptible Staphylococcus aureus) infection A49.01
== END 2024-03-22 15:34 | disposition home or self-care (01) ==
PROVIDERS: PCP Student in an Organized Health Care Education/Training Program; Visit Provider Internal Medicine
DX: A49.01 Methicillin susceptible Staphylococcus aureus infection, unspecified site (principal)
CPT/HCPCS: 99213

== ENCOUNTER → 2024-03-22 14:10 | Outpatient (BNVA) | payer MEDICARE, MEDICAID, SELFPAY | PROVIDERS: PCP Student in an Organized Health Care Education/Training Program; Visit Provider Internal Medicine | DX: A49.01 Methicillin susceptible Staphylococcus aureus infection, unspecified site (principal) | CPT/HCPCS: 99212 ==

== ENCOUNTER 2024-04-16 12:51 | Outpatient (AMB) | payer MEDICARE, MEDICAID, SELFPAY ==
--- OUTSIDE RECORDS SUMMARY | 2024-04-16 12:52 | XMS_ITS | Clinical Summary ---
Author Organization Unknown Care Team Providers Care Derrick Builder Name Role Phone GANESH BAILEY Unavailable [employer]peace PINEDA RN, JONA Unavailable Unavailable YOLANDA PEREIRA, STEPHANIE Unavailable Unavailable Payers Payer Name Policy Type Policy Number Effective Date Expira tion Date MEDICARE.NGS.PDGM [id number] Problems Condition Name Condition Details Condition Category [...] THROMBOCYTOP ENIA, UNSPECIFIED Active 04-07 00:00: 00 ROLL HAND (CURRENT) USE OF INSULIN Active 09-16 00:00: 00 ROLL HAND (CURRENT) USE OF ANTICOAGULAN TS Active 09-16 00:00: 00 SNF (CURRENT) USE OF ASPIRIN Active 09-16 00:00: 00 ROLL HAND (CURRENT) USE OF ORAL HYPOGLYCEMIC DRUGS Active [...] 10 mg tablet 08-30 00:00: 00 Yes [id number] HTN 1 tablet DAILY 1 tablet DAILY (route: oral) Med Classific ation: Cardiovas cular Therapy Agents glipizide 10 mg tablet 08-30 00:00: 00 09-16 00:00 :00 No [id number] Per instruc tions Per instructio ns (route: oral) Med Classific ation: Endocrine lisinopril 40 mg tablet 08-30 00:00: 00 Yes [id number] HTN 1 tablet DAILY 1 tablet DAILY (route: oral) Med Classific ation: Cardiovas cular Therapy Agents metformin 1,000 mg tablet 08-30 00:00: 00 09-16 00:00 :00 No [id number] Per instruc tions Per instructio ns (route: oral) Med Classific ation: Endocrine metoprolol succinate ER 25 mg tablet,exte nded release 24 hr 08-30 00:00: 00 09-16 00:00 :00 No [id number] Per instruc tions Per instructio ns (route: oral) Med Classific ation: Cardiovas cular Therapy Agents furosemide 40 mg tablet 08-06 00:00: 00 09-16 00:00 :00 No [id number] Per instruc tions EVERY Per instructio ns EVERY (route: oral) Med Classific ation: Cardiovas cular Therapy Agents aspirin 81 mg tablet,any yed release 09-16 00:00: 00 Yes [id number] HEART HEALTH 1 tablet DAILY 1 tablet DAILY (route: oral) Med Classific ation: Hematolog ical Agents cefazolin 1 gram intravenous solution 09-16 00:00: 00 10-06 23:59 :00 No [id number] ANTIBIOTIC 2 g EVERY 8 HOURS 2 g EVERY 8 HOURS (route: intravenou s) Med Classific ation: Anti-Infe ctive Agents clindamycin HCl 75 mg capsule 09-16 00:00: 00 Yes [id number] DENTAL PROCEDURE 1 capsule EVERY 8 HOURS 1 capsule EVERY 8 HOURS (route: oral) Med Classific ation: Anti-Infe ctive Agents dextrometho rphan-guaif enesin 10 mg-100 mg/5 mL oral liquid 09-16 00:00: 00 Yes [id number] COUGH 10 mL EVERY 6 HOURS 10 mL EVERY 6 HOURS (route: oral) Med Classific ation: Respirato ry Therapy Agents Jardiance 10 mg tablet 09-16 00:00: 00 Yes [id number] DM 1 tablet DAILY 1 tablet DAILY (route: oral) Med Classific ation: Endocrine metoprolol tartrate 100 mg tablet 09-16 00:00: 00 Yes [id number] HTN 1 tablet 2 TIMES DAILY 1 tablet 2 TIMES DAILY (route: oral) Med Classific ation: Cardiovas cular Therapy Agents pantoprazol e 40 mg tablet,any yed release 09-16 00:00: 00 Yes [id number] GERD 1 tablet DAILY 1 tablet DAILY (route: oral) Med Classific ation: Gastroint estinal Therapy Agents polyethylen e glycol 3350 17 gram/dose oral powder 09-16 00:00: 00 Yes [id number] CONSTIPATIO N 17 gram DAILY 17 gram DAILY (route: oral) Med Classific ation: Gastroint estinal Therapy Agents rosuvastati n 10 mg tablet 09-16 00:00: 00 Yes [id number] HLD 1 tablet DAILY 1 tablet DAILY (route: oral) Med Classific ation: Cardiovas cular Therapy Agents Senna Lax 8.6 mg tablet 09-16 00:00: 00 Yes [id number] CONSTIPATIO N 2 tablet DAILY 2 tablet DAILY (route: oral) Med Classific ation: Gastroint estinal Therapy Agents tamsulosin 0.4 mg capsule 09-16 00:00: 00 Yes [id number] BPH 1 capsule DAILY 1 capsule DAILY (route: oral) Med Classific ation: Genitouri nary Therapy Tradjenta 5 mg tablet 09-16 00:00: 00 Yes [id number] DM 1 tablet DAILY 1 tablet DAILY (route: oral) Med Classific ation: Endocrine Normal Saline Flush 0.9 % injection syringe 09-16 00:00: 00 09-20 14:11 :39.9 53 No [id number] flush 10 mL DIRECTED 10 mL DIRECTED (route: injection) Med Classific ation: Electroly te Balance-N utritiona l Products BD PosiFlush Normal Saline 0.9 % injection syringe 09-16 00:00: 00 Yes [id number] flush 5-10 mL DIRECTED 5-10 mL DIRECTED (route: injection) Med Classific ation: Electroly te Balance-N utritiona l Products acetaminoph en 325 mg tablet 09-16 00:00: 00 Yes [id number] pain 2 tablet EVERY 6 HOURS 2 tablet EVERY 6 HOURS (route: oral) Med Classific ation: Analgesic , Anti-infl ammatory or Antipyret ic benzonatate 100 mg capsule 09-16 00:00: 00 Yes [id number] cough 1 capsule 3 TIMES DAILY 1 capsule 3 TIMES DAILY (route: oral) Med Classific ation: Respirato ry Therapy Agents tramadol 50 mg tablet 10-11 00:00: 00 Yes [id number] PAIN Per instruc tions 3 TIMES DAILY [...] End Date/Time Encounter Type Admission Type Attending [facility] Care Department Encounter ID Discharge Date Discharge Status Discharge Condition Discharge Reason Percent Goals Met 2022-09-16 00:00:00 2022-11-06 00:00:00 Outpatient NEW ADMISSION JONA PINEDA [facility] [id number] 2022-11-06 00:00:00 DISCHARGE TO HOME OR SELF CARE INDEPENDEN T IN THE COMMUNITY HH OR PAL- GOALS MET 73.81
--- OUTSIDE RECORDS SUMMARY | 2024-04-16 12:52 | XMS_ITS | Clinical Summary ---
Author Organization Unknown Care Team Providers Care Founder Chairman And Chief Creative Officer Name Role Phone GANESH BAILEY Unavailable Unav[employer]peace PINEDA RN, JONA Unavailable Unavailable YOLANDA PEREIRA, STEPHANIE Unavailable Unavailable Payers Payer Name Policy Type Policy Number Effective Date Expira tion Date MEDICARE.NGS.PDGM [id number] Problems Condition Name Condition Details Condition Category [...] THROMBOCYTOP ENIA, UNSPECIFIED Active 04-07 00:00: 00 PLANT CLERK (CURRENT) USE OF INSULIN Active 09-16 00:00: 00 PLANT CLERK (CURRENT) USE OF ANTICOAGULAN TS Active 09-16 00:00: 00 RESIDENTIAL (CURRENT) USE OF ASPIRIN Active 09-16 00:00: 00 PLANT CLERK (CURRENT) USE OF ORAL HYPOGLYCEMIC DRUGS Active [...] 10 mg tablet 08-30 00:00: 00 Yes [id number] HTN 1 tablet DAILY 1 tablet DAILY (route: oral) Med Classific ation: Cardiovas cular Therapy Agents glipizide 10 mg tablet 08-30 00:00: 00 09-16 00:00 :00 No [id number] Per instruc tions Per instructio ns (route: oral) Med Classific ation: Endocrine lisinopril 40 mg tablet 08-30 00:00: 00 Yes [id number] HTN 1 tablet DAILY 1 tablet DAILY (route: oral) Med Classific ation: Cardiovas cular Therapy Agents metformin 1,000 mg tablet 08-30 00:00: 00 09-16 00:00 :00 No [id number] Per instruc tions Per instructio ns (route: oral) Med Classific ation: Endocrine metoprolol succinate ER 25 mg tablet,exte nded release 24 hr 08-30 00:00: 00 09-16 00:00 :00 No [id number] Per instruc tions Per instructio ns (route: oral) Med Classific ation: Cardiovas cular Therapy Agents furosemide 40 mg tablet 08-06 00:00: 00 09-16 00:00 :00 No [id number] Per instruc tions EVERY Per instructio ns EVERY (route: oral) Med Classific ation: Cardiovas cular Therapy Agents aspirin 81 mg tablet,any yed release 09-16 00:00: 00 Yes [id number] HEART HEALTH 1 tablet DAILY 1 tablet DAILY (route: oral) Med Classific ation: Hematolog ical Agents cefazolin 1 gram intravenous solution 09-16 00:00: 00 10-06 23:59 :00 No [id number] ANTIBIOTIC 2 g EVERY 8 HOURS 2 g EVERY 8 HOURS (route: intravenou s) Med Classific ation: Anti-Infe ctive Agents clindamycin HCl 75 mg capsule 09-16 00:00: 00 Yes [id number] DENTAL PROCEDURE 1 capsule EVERY 8 HOURS 1 capsule EVERY 8 HOURS (route: oral) Med Classific ation: Anti-Infe ctive Agents dextrometho rphan-guaif enesin 10 mg-100 mg/5 mL oral liquid 09-16 00:00: 00 Yes [id number] COUGH 10 mL EVERY 6 HOURS 10 mL EVERY 6 HOURS (route: oral) Med Classific ation: Respirato ry Therapy Agents Jardiance 10 mg tablet 09-16 00:00: 00 Yes [id number] DM 1 tablet DAILY 1 tablet DAILY (route: oral) Med Classific ation: Endocrine metoprolol tartrate 100 mg tablet 09-16 00:00: 00 Yes [id number] HTN 1 tablet 2 TIMES DAILY 1 tablet 2 TIMES DAILY (route: oral) Med Classific ation: Cardiovas cular Therapy Agents pantoprazol e 40 mg tablet,any yed release 09-16 00:00: 00 Yes [id number] GERD 1 tablet DAILY 1 tablet DAILY (route: oral) Med Classific ation: Gastroint estinal Therapy Agents polyethylen e glycol 3350 17 gram/dose oral powder 09-16 00:00: 00 Yes [id number] CONSTIPATIO N 17 gram DAILY 17 gram DAILY (route: oral) Med Classific ation: Gastroint estinal Therapy Agents rosuvastati n 10 mg tablet 09-16 00:00: 00 Yes [id number] HLD 1 tablet DAILY 1 tablet DAILY (route: oral) Med Classific ation: Cardiovas cular Therapy Agents Senna Lax 8.6 mg tablet 09-16 00:00: 00 Yes [id number] CONSTIPATIO N 2 tablet DAILY 2 tablet DAILY (route: oral) Med Classific ation: Gastroint estinal Therapy Agents tamsulosin 0.4 mg capsule 09-16 00:00: 00 Yes [id number] BPH 1 capsule DAILY 1 capsule DAILY (route: oral) Med Classific ation: Genitouri nary Therapy Tradjenta 5 mg tablet 09-16 00:00: 00 Yes [id number] DM 1 tablet DAILY 1 tablet DAILY (route: oral) Med Classific ation: Endocrine Normal Saline Flush 0.9 % injection syringe 09-16 00:00: 00 09-20 14:11 :39.9 53 No [id number] flush 10 mL DIRECTED 10 mL DIRECTED (route: injection) Med Classific ation: Electroly te Balance-N utritiona l Products BD PosiFlush Normal Saline 0.9 % injection syringe 09-16 00:00: 00 Yes [id number] flush 5-10 mL DIRECTED 5-10 mL DIRECTED (route: injection) Med Classific ation: Electroly te Balance-N utritiona l Products acetaminoph en 325 mg tablet 09-16 00:00: 00 Yes [id number] pain 2 tablet EVERY 6 HOURS 2 tablet EVERY 6 HOURS (route: oral) Med Classific ation: Analgesic , Anti-infl ammatory or Antipyret ic benzonatate 100 mg capsule 09-16 00:00: 00 Yes [id number] cough 1 capsule 3 TIMES DAILY 1 capsule 3 TIMES DAILY (route: oral) Med Classific ation: Respirato ry Therapy Agents tramadol 50 mg tablet 10-11 00:00: 00 Yes [id number] PAIN Per instruc tions 3 TIMES DAILY [...] End Date/Time Encounter Type Admission Type Attending [facility] Care Department Encounter ID Discharge Date Discharge Status Discharge Condition Discharge Reason Percent Goals Met 2022-09-16 00:00:00 2022-11-06 00:00:00 Outpatient NEW ADMISSION JONA PINEDA [facility] [id number] 2022-11-06 00:00:00 DISCHARGE TO HOME OR SELF CARE INDEPENDEN T IN THE [facility] OR [facility]- GOALS MET 73.81
[2024-04-16 13:02] VITALS: BP 130/60; PULSE 70; BMI 35.6
--- NOTE | 2024-04-16 13:02 | MHC.OFFVIS ---
Vital Signs 04/16/24 13:02 Height 5 ft 6 in Weight 220 lb 7.396 oz BMI 35.6 BP 130/60 Blood Pressure Location Lt brachial Position Sitting Pulse 70 Intake Visit Reasons: Positive cologuard Intake Note: David presents in the office as a new patient for positive cologuard. CC: Not having any GI symptoms at this time. He states that he was having constipation the day he did the stool test so he thinks that could have been the cause of the positive result. Press Tender Long Goods Required: No Allergies cinnamon Allergy (Severe, Verified 04/16/24 13:05) Swelling Penicillins Allergy (Mild, Verified 04/16/24 13:05) RASH lisinopril Adverse Reaction (Intermediate, Verified 04/16/24 13:05) Cough HPI Comments Details: 58 year old male presenting to the office for discussion of colonoscopy after a positive cologuard. Patient is at high risk of colon cancer due to positive family history of colon cancer in mom in her 70s. Patient does not have any other gastrointestinal symptoms to include abdominal pain, nausea, vomiting, diarrhea, blood in stool, weight loss. Labs reviewed to confirm patient does not have anemia. Pt reports he has never gotten any prior colos despite fam hx - doesnt remember bringing up to his PCP. Pertinent med and surgical hx includes coarctation of aorta s/p aortic stent placement 2022 complicated by stent infection with MSSA. Pt also with DM. [facility] Medical History (Updated 04/16/24 @ 13:43 by Maryan Green MD) Family history of anesthesia complication Arthritis Vertigo MSSA (methicillin susceptible Staphylococcus aureus) infection Sludge in gallbladder Diabetes HTN (hypertension) Coarctation of aorta Asthma Surgical History History of uvulopalatopharyngoplasty Hx of tonsillectomy Hx of heart surgery Hx of heart surgery Hx of circumcision S/P lobectomy of lung Status post aortic coarctation stent placement Social History Are you a primary cattle care worker to a significant other at home: No Do you presently have visiting nurse or other home services: No Alcohol intake: current Alcohol intake frequency: former alcohol drinker Patient Tobacco Use Status: Former Tobacco user Tobacco use type: Cigarette Cigarette Packs Per Day: 0.5 Years Smoked: 5 Substance Use Type: Marijuana Current occupational status: disabled Current occupation: right hand dominant Review of Systems Const All systems reviewed & are unremarkable except as noted in HPI and below Physical Exam Vital Signs: Last Vital Signs Pulse 70 04/16/24 13:02 BP 130/60 04/16/24 13:02 BMI result Body Mass Index 35.6 Gen appear: NAD, well nourished HEENT: no icterus, no cervical lymphadenopathy Chest: clear to auscultation CVS: Regular S1/S2 Abd: soft, nontender, nondistended Ext: no peripheral edema Neuro: A/Ox3, noted to move all extremities spontaneously Assessment & Plan Assessment & Plan (1) Positive colorectal cancer screening using Cologuard test: Code(s): R19.5 - Other fecal abnormalities Category: Medical (2) Coarctation of aorta: Code(s): Q25.1 - Coarctation of aorta Category: Medical (3) Family hx of colorectal cancer: Code(s): Z80.0 - Family history of malignant neoplasm of digestive organs Category: Medical (4) Chronic constipation: Code(s): K59.09 - Other constipation Category: Medical Plan Reviewed with the pt that with fam hx, stool testing is not recommended and should have started screening with colonoscopy earlier, in his 40s. In any case, needs a colo. Given extensive cardiovascular hx will obtain clearance from his marble setter. Plan: - PEG prep Rxed and instructions reviewed - Since he has chronic constipation, he was advised to take extra bisacodyl BID starting 2 days before colo. - Also aware to hold tradjenta and jardiance per protocol - ok to cont baby ASA monotherapy - Orient to be booked within the next 8-10 weeks - Cardiology clearance to be obtained Follow up after colo Medications: New bisacodyl to start 2 days before colonoscopy procedure 10 mg (2 x 5 mg) PO BID 2 days 8 tabs 0RF peg 3350-electrolytes 236-22.74-6.74 -5.86 gram (Golytely) as per split prep instructions, until fecal effluent is clear 240 mL PO Q10M 4,000 mL 0RF colonoscopy Coding Level of Care Code New Pt Level 4 (25085) Diagnoses Positive colorectal cancer screening using Cologuard test R19.5 Coarctation of aorta Q25.1 Family hx of colorectal cancer Z80.0 Chronic constipation K59.09
== END 2024-04-16 13:36 | disposition home or self-care (01) ==
PROVIDERS: PCP Student in an Organized Health Care Education/Training Program; Visit Provider Internal Medicine
DX: R19.5 Other fecal abnormalities (principal); Q25.1 Coarctation of aorta; Z80.0 Family history of malignant neoplasm of digestive organs; K59.09 Other constipation
CPT/HCPCS: 99204

== ENCOUNTER → 2024-04-16 12:51 | Outpatient (BNVA) | payer MEDICARE, MEDICAID, SELFPAY | PROVIDERS: PCP Student in an Organized Health Care Education/Training Program; Visit Provider Internal Medicine | DX: R19.5 Other fecal abnormalities (principal); K59.09 Other constipation; Q25.1 Coarctation of aorta; Z80.0 Family history of malignant neoplasm of digestive organs | CPT/HCPCS: 99202 ==

== ENCOUNTER 2024-07-22 07:45 | Outpatient (REF) | payer MEDICARE, MEDICAID, SELFPAY ==
--- OUTSIDE RECORDS SUMMARY | 2024-07-22 07:48 | XMS_ITS | Encounter Summary ---
Author Organization [facility] Address [address] [place] [address] Care Team Providers Care Parking Lot Attendant Name Role Phone Ramon West MD Unavailable [phone] Ramon West MD Primary Care Provider [phone] Reason for Visit * Reason Comments Medication Refill Encounter Details Date Type Department Care Team (Late st Contact Info) Description 10/09/2022 Refill [facility] Cardiothoracic Surgery [address] [address] Kasia Casas PA-C [address] [address] Hypertension, unspecified type Social History Tobacco Use Types Packs/Day Years Used Date Smoking Tobacco: Former Cigarettes 0.5 3 0 04/10/1989 - 04/10/1992 AUDIT-C Answer Date Recorded Q1: How often do you have a drink containing alc ohol? 2-3 times a week 08/25/2022 Q2: How many drinks containi ng alcohol do you have on a typical day when you are drinking? 1 or 2 08/25/2022 Q3: How often do you have si x or more drinks on one occasion? Never 08/25/2022 Overall Financial Resource Strain (CARDIA) Answe r Date Recorded How hard is it for you to pa y for the very basics like food, housing, medical care, and heating? Not hard at all 08/26/2022 Hunger Vital Sign Answer Date Recorded Within the past 12 months, y ou worried that your food would run out before you got the money to buy more. Never true 08/27/19 23 Within the past 12 months, t he food you bought just didn't last and you didn't have money to get more. Never true 08/26/2022 PRAPARE - Transportation Answer Date Re corded In the past 12 months, has l ack of transportation kept you from medical appointments or from getting medications? No 08/06 In the past 12 months, has l ack of transportation kept you from meetings, work, or from getting things needed for daily living? No 08/26/2022 Housing Stability Vital Sign Answer Saulo e Recorded In the last 12 months, was t here a time when you were not able to pay the mortgage or rent on time? No 08/26/2022 In the last 12 months, how many places have you lived? 1 08/26/2022 In the last 12 months, was t here a time when you did not have a steady place to sleep or slept in a prison (including now)? No 08/26/2022 Sex and Gender Information Value Date Recorded Sex Assigned at Male 08/24/2022 10:55 PM EDT Legal Sex Male 6:13 PM EST Gender Identity Male 08/24/2022 10:55 PM EDT Sexual Orientation Choose not to disclose 2022 7:54 AM EDT COVID-19 Exposure Response Date Recorded In the last 10 days, have yo u been in contact with someone who was confirmed or suspected to have Coronavirus/COVID-19? No / Unsure 10/09/2022 10:58 AM EDT documented as of this encounter Plan of Treatment Not on file documented as of this encounter Visit Diagnoses Diagnosis Hypertension, unspecified type documented in this encounter Care Teams Parking Lot Attendant Relationship Specialty Start Date End Date Ramon West MD [address] [place] [address] PCP - General Surgery, Cardiac 10/09/22 Ramon West MD [address] [address] Surgery, Cardiac 08/26/22 Hiren Radford [address] [place] [id number] Advertising Account Executive Cardiovascular Disease 10/02/22 [facility] [address] [place] [address] Primary Care Provider General Medicine 10/02/22 documented as of this encounter
--- OUTSIDE RECORDS SUMMARY | 2024-07-22 07:48 | XMS_ITS | Clinical Summary ---
Author Organization [facility] Address [address] [place] [address] Care Team Providers Care Hunting And Fishing Guide Name Role Phone Ramon West MD Unavailable [phone] Ramon West MD Primary Care Provider Allergies Active Allergy Reactions Criticality Noted Date Comments Lisinopril Unknown/Patient and Family Unable to Define Medium 08/24/2022 Penicillins Unknown/Patient and Family Unable to Define Medium 08/24/2022 Medications sodium chloride (NS FLUSH) 0.9 % SolutionIndicati ons:Mycotic aneurysm Flush PICC line with 5 ml pre and post use of PICC line and 5 ml pre / 10 ml post lab draws. 1 each 3 Active HYDROmorphone (DILAUDID) 2 MG tabletIndication s:Aneurysm of unspecified site,Mycotic aneurysm Take 1 tablet (2 mg total) by mouth 4 times daily (every 6 hours) as needed for severe pain. Max Daily Amount: 8 mg 12 tablet 3 Active amLODIPine (NORVASC) 10 MG tabletIndication s:Aneurysm of unspecified site Take 1 tablet (10 mg total) by mouth daily. Do not start before September 17, 2022. 30 tablet 1 3 Active aspirin enteric coated (ECOTRIN LOW STRENGTH) 81 MG EC tabletIndication s:Aneurysm of unspecified site Take 1 tablet (81 mg total) by mouth daily. Do not start before September 17, 2022. 90 tablet 1 3 Active clindamycin (CLEOCIN) 75 MG capsuleIndicatio ns:Aneurysm of unspecified site Take 1 capsule (75 mg total) by mouth 3 (three) times a day. 60 capsule 3 Active empagliflozin (JARDIANCE) 10 MG tabletIndication s:Aneurysm of unspecified site Take 1 tablet (10 mg total) by mouth daily. Do not start before September 17, 2022. 30 tablet 1 3 Active guaiFENesin (MUCINEX) 600 MG 12 hr tabletIndication s:Aneurysm of unspecified site Take 1 tablet (600 mg total) by mouth 2 times daily (every 12 hours) as needed for cough or congestion. 60 tablet 3 Active linagliptin (TRADJENTA) 5 MG TabIndications:A neurysm of unspecified site Take 1 tablet (5 mg total) by mouth daily. Do not start before September 17, 2022. 30 tablet 1 3 Active lisinopril (PRINIVIL,ZeSTRI L) 40 MG tabletIndication s:Aneurysm of unspecified site Take 1 tablet (40 mg total) by mouth daily. Do not start before September 17, 2022. 90 tablet 1 3 Active rosuvastatin (CRESTOR) 10 MG tabletIndication s:Aneurysm of unspecified site Take 1 tablet (10 mg total) by mouth daily. Do not start before September 17, 2022. 90 tablet 1 3 Active senna (SENOKOT) 8.6 MG Tab tabletIndication s:Aneurysm of unspecified site Take 2 tablets by mouth daily as needed for constipation. 60 tablet 3 Active tamsulosin (FLOMAX) 0.4 MG capsuleIndicatio ns:Aneurysm of unspecified site Take 1 capsule (0.4 mg total) by mouth nightly. 90 capsule 1 3 Active acetaminophen (TYLENOL) 325 MG tabletIndication s:Aneurysm of unspecified site Take 2 tablets (650 mg total) by mouth 4 times daily (every 6 hours) as needed for mild pain or moderate pain. 3 Active benzonatate (TESSALON) 100 MG capsuleIndicatio ns:Aneurysm of unspecified site Take 1 capsule (100 mg total) by mouth 3 (three) times a day as needed for cough. 20 capsule 3 Active ibuprofen (MOTRIN) 400 MG tabletIndication s:Aneurysm of unspecified site Take 1 tablet (400 mg total) by mouth 4 times daily (every 6 hours) as needed for mild pain or moderate pain. 30 tablet 3 Active metoPROLOL SUCCINATE (TOPROL-XL) 200 MG 24 hr tabletIndication s:Hypertension, unspecified type Take 1 tablet (200 mg total) by mouth daily. 30 tablet 3 Active traMADol (ULTRAM) 50 MG tabletIndication s:Post-op pain Take 1 tablet (50 mg total) by mouth 3 times daily (every 8 hours) as needed for severe pain. 10 tablet 3 Active cephalexin (KEFLEX) 500 MG capsuleIndicatio ns:MSSA bacteremia Take 1 capsule (500 mg total) by mouth 2 (two) times a day. 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 No 08/26/2022 Sex and Gender Information Value Date Recorded Sex Assigned at Male 08/24/2022 10:55 PM EDT Legal Sex Male 6:13 PM EST Gender Identity Male 08/24/2022 10:55 PM EDT Sexual Orientation Choose not to disclose 2022 7:54 AM EDT Last Filed Vital Signs Vital Sign Reading Time Taken Comments Blood Pressure 98/58 10/09/2022 11:39 AM EDT Pulse 85 10/09/2022 11:39 AM EDT Temperature 36.8 ??C (98.2 ??F) 09/16/2022 12:07 PM E DT Respiratory Rate 13 10/09/2022 11:39 AM EDT Oxygen Saturation 98% 10/09/2022 11:39 AM EDT Inhaled Oxygen Concentration - - Weight 87.1 kg (192 lb) 10/09/2022 11:39 AM EDT Height 167.6 cm (5' 6 ) 10/09/2022 11:39 AM EDT Body Mass Index 30.99 10/09/2022 11:39 AM EDT Plan of Treatment Health Maintenance Due Date Last Done Comments Hepatitis C Virus Screening 1964 HIV Screening 1977 Microalbumin/Creatinine Ratio Urine 1982 DTaP/Tdap/Td Vaccines (1 - Tdap) 06/11/1983 Colonoscopy 2009 Pneumococcal Vaccines 50+ (1 of 1 - PCV) 2014 Zoster (Shingles) Vaccine (1 of 2) 2014 Influenza Vaccine 11/06/2023 01/04/2016, 02/06/2015 COVID-19 Vaccine (3 - season) 2023 07/17/2020, 06/19/2020 RSV Vaccine 60 years and older and Patients (1 - Risk 60-74 years 1-dose series) 2024 Hemoglobin A1C Discontinued 08/24/2022 Chronic Controlled Substance User PDMP Review Discontinued 09/25/2022, 08/24/2022 Hepatitis B Vaccines Aged Out No long er eligible based on patient's age to complete this topic Pneumococcal Vaccine: Pediatric (0-5 Years) and At-Risk Patients (6 to 49 Years) Aged Out No longer eligible b ased on patient's age to complete this topic Medical Devices Implanted Type Area Decorating Equipment Setter Device Identifier Shelf Expiration Date Model / Serial / Lot [id number] Graft Cv Glwv 10mm 30cm Abd Thrx Hydrolyzable Geltn Poly Wvn - [id number] Implanted:Qty: 1 on 08/26/2022 by Ramon West MD at [facility] Graft N/A: Aorta [employer] [id number] 05/07/2025 [id number] / [id number] / [id number] Graft Vasc Glwv Vascutek 16mm 30cm Thor Abdominal Twl Wvn - [id number] Implanted:Qty: 1 on 08/27/2022 by Ramon West MD at [facility] Graft N/A: Aorta [employer] 10/05/2023 [id number] / [id number] / [id number] Patch Vasc 40w50ob Xenosure Bvn Pericard Sterl Disp - [id number] Implanted:Qty: 1 on 08/26/2022 by Ramon West MD at [facility] Tissue N/A: Aorta [employer] [id number] 03/04/2028 [id number] / [id number] / [id number] Description:Patch type, size , and expiration date confirmed prior to dispensing to OR table Procedures Procedure Name Priority Date/Time Associated Diagnosis Comments HEMOGLOBIN A1C WITH ESTIMATED AVERAGE GLUCOSE STAT 08/24/2022 11:29 PM EDT from Last 3 Months or Most Recently Relevant to Health Maintenance Results * (ABNORMAL) HEMOGLOBIN A1C WITH ESTIMATED AVERAGE GLUCOSE (08/24/2022 11:29 PM EDT) Hemoglobin A1C 9.0(H) <5.7 % 08/25/2022 3:[address] [facility] Comment: A1c% ? Interpretation 5.7 - 6.0 ?Increase risk of diabetes 6.1 - 6.4 ?Higher risk of diabetes > or = 6.5 ?? Consistent with diabetes Diabetes Care, 33(Supp 1):S1-S61, 2010 Estimated Average Glucose 212 mg/dL 08/25/2022 3:[address] 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 Next of Ki n (Spouse, Adult Child, Parent, Adult Sibling, Grandparent) Care Teams Hunting And Fishing Guide Relationship Specialty Start Date End Date Ramon West MD [address] [place] [address] PCP - General Surgery, Cardiac 10/09/22 Ramon West MD [address] [place] [address] [place] [address] Surgery, Cardiac 08/26/22 Hiren Radford [address] [place] [address] Systems Technician Cardiovascular Disease 10/02/[address] [address] Primary Care Provider General Medicine 10/02/22
--- OUTSIDE RECORDS SUMMARY | 2024-07-22 07:48 | XMS_ITS | Encounter Summary ---
Author Organization [facility] Address [address] [place] [address] Care Team Providers Care Web Specialist Name Role Phone Ramon West MD Unavailable Ramon West MD Primary Care Provider Encounter Details Date Type Department Care Team (Late st Contact Info) Description 11/11/2018 Scanned Document [facility] 3 ICU [address] [place] [address] Provider, Generic Social History Tobacco Use Types Packs/Day Years Used Date Smoking Tobacco: Never Assessed Sex and Gender Information Value Date Recorded Sex Assigned at Male 08/24/2022 10:55 PM EDT Legal Sex Male 6:13 PM EST Gender Identity Male 08/24/2022 10:55 PM EDT Sexual Orientation Choose not to disclose 2022 7:54 AM EDT documented as of this encounter Plan of Treatment Not on file documented as of this encounter Visit Diagnoses Not on filedocumented in this encounter Additional Health Concerns Infection Onset Date Last Indicated Resolved Time R/O TB 08/24/2022 08/24/2022 08/27/2022 7:18 AM EDT R/O C. Difficile 08/25/2022 08/25/2022 08/27/2022 7:17 AM EDT R/O C. Difficile 08/31/2022 09/01/2022 09/01/2022 9:42 AM EDT documented as of this encounter Care Teams Web Specialist Relationship Specialty Start Date End Date Ramon West MD [address] [address] PCP - General Surgery, Cardiac 10/09/22 Ramon West MD [address] [address] Surgery, Cardiac 08/26/22 Hiren Radford [address] [place] [address] Negative Turner Apprentice Cardiovascular Disease 10/02/22 [facility] [address] [place] [address] Primary Care Provider General Medicine 10/02/22 documented as of this encounter
[2024-07-22 09:27] LABS: Alanine Aminotransferase 31 U/L (0-40); Albumin Level 4.3 g/dL (3.5-5.0); Anion Gap 10 (12-20); Aspartate Amino Transferase 26 U/L (5-37); Bilirubin Direct 0.3 mg/dL (0.0-0.5); Bilirubin Total 0.8 mg/dL (0.0-1.0); Blood Urea Nitrogen 11 mg/dL (9-16); Calcium 9.2 mg/dL (8.4-10.2); Carbon Dioxide 27 mmol/L (22-29); Chloride 109 mmol/L (96-108); Cholesterol 109 mg/dL (<200); Estimated Glomerular Filt Rate > 60; Glucose Random 148 mg/dL (60-115); HDL Cholesterol 31 mg/dL (>40); LDL Cholesterol Calculated 68 mg/dL (<100); Potassium 4.3 mmol/L (3.3-5.1); Sodium 142 mmol/L (135-145); Triglycerides 52 mg/dL (<150)
[2024-07-22 09:54] LABS: Alkaline Phosphatase 71 U/L (39-117)
== END 2024-07-22 07:46 | disposition home or self-care (01) ==
LOC: HO.LAB 07:45
PROVIDERS: PCP Student in an Organized Health Care Education/Training Program; Visit Provider Student in an Organized Health Care Education/Training Program
DX: E11.9 Type 2 diabetes mellitus without complications (principal)
CPT/HCPCS: 36415; 80048; 80061; 80076

== ENCOUNTER 2024-08-11 10:38 | Outpatient (AMB) | payer MEDICARE, MEDICAID, SELFPAY ==
--- NOTE | 2024-08-11 10:39 | MHC.OFFVIS ---
Intake Visit Reasons: Est Patient OV-Chronic Left Shoulder Pain Intake Note: David is a 58 year old male who presents with complaints of progressively worsening left shoulder pain and stiffness. His symptoms have gotten worse over the last year in spite of continued non operative treatments. He has failed the last 6 weeks of conservative treatment. Has had cortisone injections in the past. The most recent injection gave him minimal relief. He has also done physical therapy exercises which aggravated his pain. The patient reports difficulty lifting his left hand above shoulder height. Allergies cinnamon Allergy (Severe, Verified 08/11/24 10:45) Swelling Penicillins Allergy (Mild, Verified 08/11/24 10:45) RASH lisinopril Adverse Reaction (Intermediate, Verified 08/11/24 10:45) Cough Medication List - Last Reconciled 08/11/24 by Dustin Falcon MD albuterol sulfate 90 mcg/actuation (Ventolin HFA) 2 puffs inhalation Q4H PRN albuterol sulfate 2.5 mg (3 mL) inhalation Q4-6H PRN amlodipine 10 mg PO QAM aspirin 81 mg PO QAM bisacodyl 10 mg (2 x 5 mg) PO BID 2 days cyanocobalamin (vitamin B-12) 1,000 mcg PO QAM empagliflozin (Jardiance) 10 mg PO QAM fluticasone furoate-vilanterol 200-25 mcg/dose (Breo Ellipta) 1 inh inhalation DAILY furosemide (Lasix) 40 mg PO QAM hydralazine 25 mg PO BID ipratropium bromide 2 sprays intranasal BID linagliptin (Tradjenta) 5 mg PO QAM losartan 100 mg PO DAILY metoprolol succinate ER 100 mg PO BID peg 3350-electrolytes 236-22.74-6.74 -5.86 gram (Golytely) 240 mL PO Q10M rosuvastatin 10 mg PO QPM tizanidine 2 mg PO TID PRN PFSH Medical History Family history of anesthesia complication Arthritis Vertigo MSSA (methicillin susceptible Staphylococcus aureus) infection Sludge in gallbladder Diabetes HTN (hypertension) Coarctation of aorta Asthma Surgical History History of uvulopalatopharyngoplasty Hx of tonsillectomy Hx of heart surgery Hx of heart surgery Hx of circumcision S/P lobectomy of lung Status post aortic coarctation stent placement Social History Are you a primary child care attendant to a significant other at home: No Do you presently have visiting nurse or other home services: No Alcohol intake: current Alcohol intake frequency: former alcohol drinker Patient Tobacco Use Status: Former Tobacco user Tobacco use type: Cigarette Cigarette Packs Per Day: 0.5 Years Smoked: 5 Substance Use Type: Marijuana Current occupational status: disabled Current occupation: right hand dominant Physical Exam Const Other: Well-nourished well-developed very friendly male awake alert and oriented x3 in no acute distress Extrem Other: Left shoulder examination shows decreased active and passive range of motion when compared to his right shoulder, 4+ out of 5 strength with supraspinatus testing, positive impingement signs, tenderness over his acromioclavicular joint, no instability Results Reviewed Results Reviewed: X-rays of the patient's left shoulder show severe acromioclavicular joint narrowing, a type 3 acromion, no acute bony abnormalities Assessment & Plan Assessment & Plan (1) Left shoulder pain: Code(s): M25.512 - Pain in left shoulder Category: Medical Plan Mr. Thompson Nieves presents with left shoulder pain and stiffness due to impingement syndrome, acromioclavicular joint arthritis and adhesive capsulitis. I had a lengthy discussion with the patient regarding the treatment options. At this point he appears to be failing continued non operative treatments. The risks and benefits of left shoulder surgery were discussed at length with the patient. The patient is interested in proceeding with surgery here at [facility] if he is cleared by his medical doctors and the anesthesia team. Surgery will most likely involve left shoulder diagnostic arthroscopy with arthroscopic distal clavicle excision, acromioplasty, capsular release and manipulation under anesthesia. The patient will continue with his range of motion exercises in the meantime. Feel free to call me at any time should questions regarding his orthopedic management arise. I spent 21 minutes in reviewing the patient's records and imaging studies, seeing the patient and documenting in the medical record. Coding Level of Care Code Est Pt Level 3 (99764) Complex EM visit Add On G2211 Diagnoses Left shoulder pain M25.512
--- OUTSIDE RECORDS SUMMARY | 2024-08-11 11:55 | XMS_ITS | Encounter Summary ---
Author Organization [facility] Address [address] [place] [address] Care Team Providers Care Marine Engine Driver Name Role Phone Ramon West MD Unavailable [phone] Ramon West MD Primary Care Provider [phone] Reason for Visit * Reason Comments Medication Refill Encounter Details Date Type Department Care Team (Late st Contact Info) Description 10/09/2022 Refill [facility] Cardiothoracic Surgery [address] [address] Kasia Casas PA-C [address] [address] Hypertension, unspecified type Social History [...] place to sleep or slept in a alf (including now)? No 08/26/2022 Sex and Gender [...] type documented in this encounter Care Teams Marine Engine Driver Relationship Specialty Start Date End Date Ramon West MD [address] [place] [address] PCP - General Surgery, Cardiac 10/09/22 Ramon West MD [address] [address] Surgery, Cardiac 08/26/22 Hiren Radford [address] [place] [id number] Manager Gift Cardiovascular Disease 10/02/22 [facility] [address] [place] [address] Primary Care Provider General Medicine 10/02/22 documented as of this encounter
--- OUTSIDE RECORDS SUMMARY | 2024-08-11 11:55 | XMS_ITS | Clinical Summary ---
Author Organization [facility] Address [address] [place] [address] Care Team Providers Care Manufacturing Engineer Supervisor Name Role Phone Ramon West MD Unavailable [phone] Ramon West MD Primary Care Provider Allergies [...] No 08/26/2022 Housing Stability Vital Sign Answer Saluo e Recorded In the last 12 months, [...] place to sleep or slept in a group home (including now)? No 08/26/2022 Sex and Gender [...] C Virus Screening 1964 HIV Screening 1977 DTaP/Tdap/Td Vaccines (1 - Tdap) 06/11/1983 Colonoscopy 2009 Pneumococcal Vaccines 50+ (1 of 1 - PCV) 2014 Zoster (Shingles) Vaccine (1 of 2) 2014 COVID-19 Vaccine (3 - 2023- season) 2023 07/17/2020, 06/19/2020 RSV Vaccine 60 years and older and Patients (1 - Risk 60-74 years 1-dose series) 2024 Influenza Vaccine 11/05/2024 01/04/2016, 02/06/2015 Hemoglobin A1C Discontinued 08/24/2022 Chronic Controlled Substance User PDMP Review Discontinued 09/25/2022, 08/24/2022 Hepatitis B Vaccines Aged Out No long er eligible based on patient's age to complete this topic Medical Devices Implanted Type Area Nuclear Monitoring Technician Device Identifier Shelf Expiration Date Model / Serial / Lot [id number] Graft Cv Glwv 10mm 30cm Abd Thrx Hydrolyzable Geltn Poly Wvn - [id number] Implanted:Qty: 1 on 08/26/2022 by Ramon West MD at [facility] Graft N/A: Aorta [employer] [id number] 05/07/2025 [id number] / [id number] / [id number] Graft Vasc Glwv Vascutek 16mm 30cm Thor Abdominal Twl Wvn - [id number] Implanted:Qty: 1 on 08/27/2022 by Ramon West MD at [facility] Graft N/A: Aorta [employer] 10/05/2023 [id number] / [id number] / [id number] Patch Vasc [id number] Xenosure Bvn Pericard Sterl Disp - [id number] Implanted:Qty: 1 on 08/26/2022 by Ramon West MD at [facility] Tissue N/A: Aorta [employer] [id number] 03/04/2028 [id number] / [id number] / [id number] Description:Patch type, size , and expiration date [...] 9.0(H) <5.7 % 08/25/2022 3:47 AM EDT [facility] Comment: A1c% ? Interpretation 5.7 - 6.0 ?Increase risk of diabetes 6.1 - 6.4 ?Higher risk of diabetes > or = 6.5 ?? Consistent with diabetes Diabetes Care, 33(Supp 1):S1-S61, 2010 Estimated Average Glucose 212 mg/dL 08/25/2022 3:47 AM EDT [facility] Blood specimen / Unknown 08/24/2022 11:29 PM EDT 08/24/2022 11:39 PM EDT Ritesh Edwards MD LAB BLOOD ORDERABLES Final Result HOSPITAL LAB See Below [address] [address] from Last 3 Months or Most Recently Relevant to Health Maintenance Insurance [facility] MEDICARE PART A & B MEDICARE PART A & B [facility] Advance Directives Documents on File Type Date Recorded Patient Manager Club Expl anation Advance Directive-Scan 10/07/2022 labs Advance Directive-Scan 09/23/2022 LABS * Full Code (Latest Code Status on File) Date Activated Date Inactivated Comments 08/26/2022 10:21 PM * Full Code Date Activated Date Inactivated Comments 08/24/2022 10:54 PM 08/26/2022 10:21 PM Healthcare Agents on File Name Relationship Healthcare Agent Relationshi p Communication Juanis Caballerogo Spouse 4. Next of Ki n (Spouse, Adult Child, Parent, Adult Sibling, Grandparent) Care Teams Manufacturing Engineer Supervisor Relationship Specialty Start Date End Date Ramon West MD [address] [address] PCP - General Surgery, Cardiac 10/09/22 Ramon West MD [address] [address] Surgery, Cardiac 08/26/22 Hiren Radford [address] [place] [phone] Religious Educator Cardiovascular Disease 10/02/22 [facility] [address] [place] [address] Primary Care Provider General Medicine 10/02/22
--- OUTSIDE RECORDS SUMMARY | 2024-08-11 11:55 | XMS_ITS | Encounter Summary ---
Author Organization [facility] Address [address] [place] [address] Care Team Providers Care System Administration Manager Name Role Phone Ramon West MD Unavailable [phone] Ramon West MD Primary Care Provider Encounter Details Date Type Department Care Team (Late st Contact Info) Description 11/11/2018 Scanned Document [facility] 3 ICU [address] [place] [address] Provider, Generic Social History Tobacco [...] documented as of this encounter Care Teams System Administration Manager Relationship Specialty Start Date End Date Raomn West MD [address] [address] PCP - General Surgery, Cardiac 10/09/22 Ramon West MD [address] [address] Surgery, Cardiac 08/26/22 Hiren Radford [address] [place] [id number] Transmissions Systems Operator Cardiovascular Disease 10/02/22 [facility] [address] [place] [address] Primary Care Provider General Medicine 10/02/22 documented as of this encounter
== END 2024-08-11 10:59 | disposition home or self-care (01) ==
LOC: HO.HOS 10:38
PROVIDERS: PCP Student in an Organized Health Care Education/Training Program; Visit Provider Orthopaedic Surgery
DX: M25.512 Pain in left shoulder (principal)
CPT/HCPCS: 99213; G2211

== ENCOUNTER → 2024-08-11 10:38 | Outpatient (BNVA) | payer MEDICARE, MEDICAID, SELFPAY | PROVIDERS: PCP Student in an Organized Health Care Education/Training Program; Visit Provider Orthopaedic Surgery | DX: M25.512 Pain in left shoulder (principal); M25.612 Stiffness of left shoulder, not elsewhere classified | CPT/HCPCS: 99212 ==

== ENCOUNTER 2024-09-15 08:38 | Outpatient (AMB) | payer MEDICARE, MEDICAID, SELFPAY ==
--- NOTE | 2024-09-15 08:39 | MHC.OFFVIS ---
Vital Signs 09/15/24 08:40 Height 5 ft 6 in Weight 226 lb BMI 36.5 BP 104/68 Blood Pressure Location Lt brachial Position Sitting Pulse 70 Pulse Source Pulse Oximeter Pulse Oximetry (%) 97 Oxygen Delivery Method Room Air Intake Visit Reasons: chronic cough/ CT FU Allergies cinnamon Allergy (Severe, Verified 09/15/24 08:42) Swelling Penicillins Allergy (Mild, Verified 09/15/24 08:42) RASH lisinopril Adverse Reaction (Intermediate, Verified 09/15/24 08:42) Cough HPI HPI chronic cough/ CT FU: Details: David is a pleasant 59 year old male, former 20 pack year smoker, quit 1992, with underlying asthma and aortic coarctation (repaired multiple times since childhood) s/p TEVAR which was complicated by MSSA infection in August 2022 s/p left upper lobectomy and left lower lobe superior segment wedge resection, maintained on suppressive keflex 500 mg BID, per [facility] ID, indefinitely. He is currently under the care of ID with Dr. Sears who maintains Keflex prescription. He is also followed by Dr. Boone, at [facility]. He initially presented to office as he reported intermittent productive cough with green sputum in the morning that was present since the surgery in 2022. He completed a course of Levaquin in addition to Keflex and has complete resolution of cough. Unfortunately he reports productive cough with whitish sputum has returned over the last few months with associated wheezing and dyspnea. Of note, he also stopped all respiratory medications. He reports intermittent chest congestion, denies fevers, chills or sick contacts. He denies any visits to urgent care or hospitalizations related to respiratory distress since the last visit. He is under the care of both Dr. Boone and Dr. Christianson for cardiac hx. He underwent CTA in 05/2024 which did not reveal any significant changes. [facility] Medical History Family history of anesthesia complication Arthritis Vertigo MSSA (methicillin susceptible Staphylococcus aureus) infection Sludge in gallbladder Diabetes HTN (hypertension) Coarctation of aorta Asthma Surgical History History of uvulopalatopharyngoplasty Hx of tonsillectomy Hx of heart surgery Hx of heart surgery Hx of circumcision S/P lobectomy of lung Status post aortic coarctation stent placement Social History Are you a primary care analyst to a significant other at home: No Do you presently have visiting nurse or other home services: No Alcohol intake: current Alcohol intake frequency: former alcohol drinker Patient Tobacco Use Status: Former Tobacco user Tobacco use type: Cigarette Cigarette Packs Per Day: 0.5 Years Smoked: 5 Substance Use Type: Marijuana Current occupational status: disabled Current occupation: right hand dominant Review of Systems Const Denies chills, Denies excessive sweating, Denies fever(s), Denies headache(s) and Denies night sweats Eyes Denies dry eyes and Denies irritation ENT Reports Normal hearing present, Denies headache(s), Denies nasal congestion, Denies nasal discharge and Denies sore throat Card Denies chest pain, Denies chest pain at rest, Denies chest pain with activity, Denies claudication, Denies leg edema, Reports dyspnea on exertion, Denies orthopnea and Denies paroxysmal nocturnal dyspnea Resp Reports chest congestion, Reports cough, Denies hemoptysis, Denies pain on inspiration, Denies pain with cough, Reports dyspnea on exertion, Denies stridor and Reports wheezing Musc Denies myalgias Neuro Reports Normal hearing present and Denies headache(s) Endo Denies excessive sweating Otto/Lymph Denies lymphadenopathy Aller/Immun Denies seasonal rhinorrhea and Reports wheezing Physical Exam Const General: cooperative, healthy appearing, comfortable, no acute distress, well developed and alert Nutritional Appearance: obese Orientation/consciousness: patient oriented x3 Limitations: no limitations HEENT Head: Yes normal to inspection, Yes normocephalic and Yes atraumatic Ears: hearing grossly normal bilaterally and external ears normal Eyes General: appearance normal, both eyes and all related structures Eyelids: Yes eyelids normal Sclerae: sclerae normal EOM: EOMs intact bilaterally Neck Neck: Yes normal visual inspection and Yes no lymphadenopathy Lymphatic: no lymphadenopathy noted Chest Chest palpation & inspection: normal inspection of the chest Resp Effort & Inspection: normal respiratory effort, able to speak in complete sentences, no audible wheezes, no cough, no stridor, not tachypneic, no tripod positioning and no use of accessory muscles Auscultation: clear to auscultation bilaterally Cardio Jugular venous distension: no JVD Rate: regular rate Rhythm: regular rhythm Skin Other: warm, dry General skin exam: no rashes or lesions noted Neuro General: patient oriented x3 Cranial nerves: Yes Normal hearing present Cognition (Neuro): normal cognition Gait exam (Neuro): Normal gait present Extrem General: Yes normal to inspection, Yes capillary refill normal, Yes no clubbing, cyanosis or edema and Yes no pedal edema Psych Appearance: grossly normal and well kempt Speech and movement: Normal speech and movement present and Clear speech present Affect: normal affect Attitude: cooperative Thought process: Normal thought process present Thought content: Normal thought content present Insight: Good insight present (Psych) Judgement: Good judgement present (Psych) Results Reviewed Results Reviewed: RESULT: CT Angio Chest CT Angio Chest INDICATION: 56-year-old male with history of coarctation status post repair, evaluate for interval change. TECHNIQUE: Spiral CTA of the chest was performed after rapid IV contrast administration without cardiac gating triggered by an KATHRINE on the aorta. Images are formatted in multiple planes using 2-D multiplanar and 3-D maximum intensity projection. 75 cc of Isovue 300 was administered intravenously. Weight-based protocol using automatic tube modulation was used to optimize exposure parameters. CTDIvol Body: 4.41 mGy, DLP Body: 182 mGy*cm. COMPARISONS: Multiple prior studies, most recently June 03, 2022. ANGIOGRAPHIC FINDINGS: Thoracic aorta: Patient has history of coarctation status post patch repair with subsequent stent graft revision with carotid subclavian bypass seen on the prior study. There has been interval resection of the thoracic aorta beginning just distal to the right brachiocephalic origin and extending to approximately 4 cm above the diaphragmatic hiatus (series 602 image 65) with placement of a new anterior bypass that extends from the right lateral aspect of the low ascending aorta through the anterior mediastinum, turning posteriorly just inferior to the right atrium and inserting on the [place] aorta just above the hiatus. No evidence of complication. Proximal anastomosis is widely patent. Possible mild narrowing at the distal anastomosis (sries 604: 75). Right brachiocephalic vein is patent. The left common carotid artery has been reimplanted on the brachiocephalic, with moderate proximal stenosis of approximately 50% (605: 184). Short segment mild stenosis in the proximal left internal carotid artery (605: 118). Patent bypass from the left common carotid artery that reconstitutes the left subclavian artery. Patent celiac axis and SMA at the edge of the eboka-dw-atcu. Pulmonary arteries: Mildly enlarged measuring 3.3 cm (605:213). No evidence of pulmonary embolism on this nondedicated study. NON-ANGIOGRAPHIC FINDINGS: Hoop Bending Machine Operator view findings, lines and tubes: None. Trachea and airways: Patent without evidence of tracheal or endobronchial lesion. Lungs and pleura: Patient has undergone left upper lobectomy with expected postsurgical changes. A few punctate right middle lobe calcified granulomas. No effusion or pneumothorax. Mediastinum and bolivar: No mass or hematoma. Mildly increased number of mediastinal lymph nodes, none overtly suspicious, likely reactive. No esophageal abnormality. Heart: Heart is normal in size. No pericardial effusion. Chest wall soft tissues: No acute abnormality. Scarring in the left posterior chest wall with associated muscular atrophy. Diaphragm: Intact. Upper abdomen: No significant abnormality. Bones: No acute abnormality. Irregularity of the posterior right fourth through seventh ribs, likely postsurgical. IMPRESSION: 1. Interval resection of the stented descending thoracic aorta with placement of an anterior bypass extending from the low ascending aorta to the distal descending aorta just above the diaphragmatic hiatus. Possible very mild narrowing of the distal anastomosis. Otherwise no complication. 2. Interval reimplantation of the left common carotid artery with moderate proximal stenosis. Patent carotid-subclavian pass. 3. Interval left upper lobectomy with expected postsurgical changes. WSN: [id number] Ordering Physician: Serjio Christianson Reason For Exam Aneurysm Signature Line Dictated By: Rj Rodriguez MD Dictated Date/Time: 06/02/24 7:45 am Reviewed By: Rj Rodriguez MD Signed By: Rj Rodriguez MD Signed Date/Time: 06/02/24 7:45 am Transcribed By: LILLIAN Assessment & Plan Assessment & Plan (1) Asthma: Code(s): J45.909 - Unspecified asthma, uncomplicated Category: Medical (2) Status post partial lobectomy of lung: Code(s): Z90.2 - Acquired absence of lung [part of] Category: Surgical (3) Restrictive ventilatory defect: Code(s): R94.2 - Abnormal results of pulmonary function studies Category: Medical Plan Encouraged Aramin to restart Breo. Reeducated patient on inhaler technique and importance of good oral hygiene to prevent thrush. If no improvements in symptoms after 4 weeks, will consider antibiotic given prior history as well as CXR. All questions were answered and patient is in agreement of plan. Will follow-up in 6-8 weeks or sooner if needed. Medications: New albuterol sulfate 90 mcg/actuation (Ventolin HFA) 2 puffs inhalation Q4H PRN 1 ea 3RF wheezing Refilled fluticasone furoate-vilanterol 200-25 mcg/dose (Breo Ellipta) 1 inh inhalation DAILY 60 ea 4RF Coding Level of Care Code Est Pt Level 4 (13820) Diagnoses Asthma J45.909 Status post partial lobectomy of lung Z90.2 Restrictive ventilatory defect R94.2
[2024-09-15 08:40] VITALS: BP 104/68; PULSE 70; O2SAT 97; BMI 36.5
--- OUTSIDE RECORDS SUMMARY | 2024-09-15 08:55 | XMS_ITS | Encounter Summary ---
Author Organization [employer] Address [address] [facility] 7t [place] [address] Care Team Providers Care Inbound Sales Manager Name Role Phone Celia Torres MD Primary Care Provider [phone] Danielle Kaufman OD Unavailable [phone] Larissa Trujillo DDS Unavailable [phone] Obdulia Restrepo Unavailable [phone] Dustin Falcon MD Unavailable Belinda Sears MD Unavailable [phone] Dipak Urban MD Unavailable [phone] Hiren Radford MD Unavailable [phone] Encounter Details Date Type Department Care Team (Late st Contact Info) Description 08/24/2024 Orders Only [facility] [address] [place] [address] Provider, MD Quynh Social History Tobacco Use Types Packs/Day Years Used Date Smoking Tobacco: Never Passive Smoke Exposure: Never Smokeless Tobacco: Never Alcohol Use Standard Drinks/Week Comments Not Currently 0 (1 standard drink = 0.6 oz pur e alcohol) Depression Answer Date Recorded Patient Health Questionnaire-9 Score 1 07/09/2022 Housing Stability Answer Date Recorded What is your housing situation today? I have fany ayala 07/06/[address] you li ve. Do you have problems with any of the following? None of the above 07/06/2024 Food Insecurity Answer Date Recorded Within the past 12 months, y ou worried that your food would run out before you got money to buy more: Never True 07/06/2024 Within the past 12 months,th e food you bought just didn't last and you didn't have enough money to get more: Never True 04/2024 Transportation Answer Date Recorded In the past 12 months, has l ack of transportation kept you from medical appts, meetings, work or from getting things needed for daily living? No 07/06/2024 Utilities Answer Date Recorded In the past 12 months, has t he electric, gas, oil or water company threatened to shut off services in your home? No 07/06/2024 Depression Answer Date Recorded Patient Health Questionnaire-2 Score 1 07/09/2022 Internet Access Answer Date Recorded Internet Access Q1 Yes 07/06/2024 Internet Access Q2 Not on file 07/06/2024 Sex and Gender Information Value Date Recorded Sex Assigned at Male 02/04/2022 10:14 AM EDT Legal Sex Male 10:14 AM EDT Gender Identity Male 02/04/2022 10:14 AM EDT Sexual Orientation Choose not to disclose 2021 10:14 AM EDT documented as of this encounter Plan of Treatment Upcoming Encounters Date Type Department Care Team (Late st Contact Info) Description 09/27/2024 9:00 AM EDT Office Visit [facility] [address] [place], [place] [id number] Teressa Velazquez, OD [address] [place] [address] documented as of this encounter Procedures Procedure Name Priority Date/Time Associated Diagnosis Comments TRANSTHORACIC ECHO (TTE) COMPLETE Routine 08/23/2024 2:51 PM EDT documented in this encounter Results * Transthoracic echo (TTE) complete (08/23/2024 2:51 PM EDT) us Historical Provider CV ECHO PROCEDURES Final Result documented in this encounter Visit Diagnoses Not on filedocumented in this encounter Additional Health Concerns Assessment Noted Time PHQ-9 Depression Total Score: 1 07/10/19 23 10:12 AM EDT documented as of this encounter Care Teams Inbound Sales Manager Relationship Specialty Start Date End Date Celia Torres MD [address] [place] [address] PCP - General Family Medicine 03/10/12 Danielle Kaufman OD [address] [place] [address] Optometry 09/03/18 Larissa Trujillo DDS [address] [place] [address] Resident Dental Cnc Cutting Operator 05/23/13 Obdulia Restrepo [address] [place] [address] Tool Planner 05/27/23 Dustin Falcon MD [address] [place] [address] [address] [place] [address] Orthopaedic Surgery 04/08/23 Belinda Sears MD [address] [facility] [address] [place] [address] Referring Physician Family Medicine 07/23/23 Dipak rUban MD [address] 3rd [place] [address] Surgeon General Surgery 04/17/23 Hiren Radford MD [address] [place] [address] Tile Setter Supervisor Cardiology 09/03/18 Serjio Christianson MD [address] [place] [address] Vascular 01/26/24 documented as of this encounter
== END 2024-09-15 09:01 | disposition home or self-care (01) ==
PROVIDERS: PCP Student in an Organized Health Care Education/Training Program; Visit Provider Nurse Practitioner Family
DX: J45.909 Unspecified asthma, uncomplicated (principal); Z90.2 Acquired absence of lung [part of]; R94.2 Abnormal results of pulmonary function studies
CPT/HCPCS: 99214

== ENCOUNTER → 2024-09-15 08:38 | Outpatient (BNVA) | payer MEDICARE, MEDICAID, SELFPAY | PROVIDERS: PCP Student in an Organized Health Care Education/Training Program; Visit Provider Nurse Practitioner Family | DX: J45.909 Unspecified asthma, uncomplicated (principal); R94.2 Abnormal results of pulmonary function studies; Z90.2 Acquired absence of lung [part of] | CPT/HCPCS: 99212 ==

== ENCOUNTER 2024-09-27 09:47 | Outpatient (REF) | payer MEDICARE, MEDICAID, SELFPAY ==
--- OUTSIDE RECORDS SUMMARY | 2024-09-27 10:39 | XMS_ITS | Encounter Summary ---
Author Organization [employer] Address [address] [facility] 7t [place] [address] Care Team Providers Care Residential Sales Representative Name Role Phone Celia Torres MD Primary Care Provider [phone] Danielle Kaufman OD Unavailable [phone] Larissa Trujillo DDS Unavailable [phone] Obdulia Restrepo Unavailable [phone] Dustin Falcon MD Unavailable Belinda Sears MD Unavailable [phone] Dipak Urban MD Unavailable [phone] Hiren Radford MD Unavailable [phone] Encounter Details Date Type Department Care Team (Late st Contact Info) Description 08/24/2024 Orders Only [facility] [address] [place] [address] Provider, MD Quynh Social History Tobacco Use [...] Care Team (Late st Contact Info) Description 12/28/2024 3:30 PM EDT Office Visit [facility] OPTOM[facility] [address] [place] [address] documented as of this encounter Procedures Procedure [...] documented as of this encounter Care Teams Residential Sales Representative Relationship Specialty Start Date End Date Celia Torres MD [address] [place] [address] PCP - General Family Medicine 03/10/12 Danielle Kaufman OD [address] [place] [address] Optometry 09/03/18 Larissa Trujillo DDS [address] [place] [address] Resident Dental Real Estate Agency Licensee 05/23/13 Obdulia Resterpo [address] [place] [address] Grinder Operator Surface Tool 05/27/23 Dustin Falcon MD [address] [place] [address] [address] [place] [address] Orthopaedic Surgery 04/08/23 Belinda [place] MD [address] [facility] [address] [place] [address] Referring Physician Family Medicine 07/23/23 Dipak Urban MD [address] [place] [address] Drive 3rd [place] [address] Surgeon General Surgery 04/17/23 Hiren Radfrod MD [address] [place] [address] Field Assistant Cardiology 09/03/18 Serjio Christianson MD [address] [place] [address] Vascular 01/26/24 documented as of this encounter
[2024-09-27 11:28] LABS: MANUAL DIFF FLAG NO
[2024-09-27 11:33] LABS: Basophils Percent Auto 0.3 % (0-2); Eosinophils Absolute Auto 0.2 X10*3/uL (0.0-0.4); Eosinophils Percent Auto 3.3 % (0-4); Hematocrit 49.3 % (42.0-52.0); Hemoglobin 16.2 g/dl (14.0-18.0); Imm Gran Abs Auto 0.05 X10*3/uL (0.00-0.03); Imm Gran Pct Auto 0.8 % (0.0-0.4); Lymphocytes Absolute Auto 1.9 X10*3/uL (1.2-4.9); Lymphocytes Percent Auto 30.9 % (20-40); Mean Corpuscular HGB Conc 32.9 g/dl (31.0-36.0); Mean Corpuscular Hemoglobin 27.1 pg (27.0-33.0); Mean Corpuscular Volume 82.4 fL (80.0-98.0); Mean Platelet Volume 10.9 fL (9.4-12.4); Monocytes Absolute Auto 0.4 X10*3/uL (0.1-1.2); Monocytes Percent Auto 6.1 % (2-11); Neutrophils Absolute Auto 3.6 x10*3/uL (2.0-8.3); Neutrophils Percent Auto 58.6 % (45-73); Platelet Count 165 X10*3/uL (160-400); Red Blood Count 5.98 X10*6/uL (4.60-5.80); Red Cell Distribution Width 13.3 % (11.0-16.0); White Blood Count 6.1 X10*3/uL (4.8-10.8)
[2024-09-27 11:44] LABS: Blood Urea Nitrogen 10 mg/dL (9-16)
[2024-09-27 11:49] LABS: Alanine Aminotransferase 33 U/L (0-40); Albumin Level 4.3 g/dL (3.5-5.0); Alkaline Phosphatase 83 U/L (39-117); Anion Gap 10 (12-20); Aspartate Amino Transferase 26 U/L (5-37); Bilirubin Total 0.7 mg/dL (0.0-1.0); Blood Urea Nitrogen 11 mg/dL (9-16); Calcium 9.2 mg/dL (8.4-10.2); Carbon Dioxide 29 mmol/L (22-29); Chloride 103 mmol/L (96-108); Estimated Glomerular Filt Rate > 60; Glucose Random 243 mg/dL (60-115); Potassium 4.2 mmol/L (3.3-5.1); Sodium 138 mmol/L (135-145); Total Protein 6.9 g/dL (6.5-8.0)
[2024-09-27 12:23] LABS: Folate 14.5 ng/mL (> or = 4.0); Vitamin B12 1167 pg/mL (200-900)
[2024-09-28 18:43] LABS: Homocysteine 8.2 umol/L (< or = 15.2)
[2024-09-30 19:28] LABS: Methylmalonic Acid 95 nmol/L (69-390)
== END 2024-09-27 09:48 | disposition home or self-care (01) ==
LOC: HO.HHCL 09:47
PROVIDERS: Nurse Practitioner Family; PCP Student in an Organized Health Care Education/Training Program; Visit Provider Optometrist
DX: H46.9 Unspecified optic neuritis (principal)
CPT/HCPCS: 36415; 80053; 82607; 82746; 83090; 83921; 84520; 85025

== ENCOUNTER 2024-09-30 07:31 | Day surgery (SDC) | payer MEDICARE, MEDICAID, SELFPAY ==
--- OUTSIDE RECORDS SUMMARY | 2024-09-21 10:35 | XMS_ITS | Encounter Summary ---
Author Organization [employer] Address [address] [facility] 7t [place] [address] Care Team Providers Care Lead Vulcanizing Operator Name Role Phone Celia Torres MD Primary Care Provider [phone] Danielle Kaufman OD Unavailable [phone] Larissa rTujillo DDS Unavailable [phone] Obdulia Restrepo Unavailable [phone] Dustin Falcon MD Unavailable Belinda Sears MD Unavailable [phone] Dipak Urban MD Unavailable [phone] Hiren Radford MD Unavailable [phone] Encounter Details Date Type Department Care Team (Late st Contact Info) Description 08/24/2024 Orders Only [facility] [address] [place] [address] Provider, MD Quynh Social History Tobacco Use [...] Description 09/27/2024 9:00 AM EDT Office Visit [facility]OM[facility] [address] [place], [place] [id number] Teressa Velazquez, OD [address] [place] [address] documented as of this encounter Procedures Procedure [...] documented as of this encounter Care Teams Lead Vulcanizing Operator Relationship Specialty Start Date End Date Celia Torres MD [address] [place] [address] PCP - General Family Medicine 03/10/12 Danielle Kaufman OD [address] [place] [address] Optometry 09/03/18 Larissa Trujillo DDS [address] [place] [address] Resident Dental Mercerizer 05/23/13 Obdulia Restrepo [address] [place] [address] Civil Estimator 05/27/23 Dustin Falcon MD [address] [place] [address] [address] [place] [address] Orthopaedic Surgery 04/08/23 Belinda [place] MD [address] [facility] 404 [place] [address] Referring Physician Family Medicine 07/23/23 Dipak Urban MD [address]rd [place] [address] Surgeon General Surgery 04/17/23 Hiren Radford MD [address] [place] [address] Technical Services Representative Cardiology 09/03/18 Serjio Christianson MD [address] [place] [address] Vascular 01/26/24 documented as of this encounter
[2024-09-28 12:39] VITALS: BMI 35.5
--- NOTE | 2024-09-29 12:35 | HO.ANESPROP2 ---
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 ?He required a rather complex repair about a year and a half ago at [facility]?involving?ascending to?descending aortic repair?and then resection of the?stent graft and a portion of the upper left lung. ? Follows [facility] Cardiology - optimized to proceed per 08/2024 office visit note Follows [facility] vascular - last telehealth visit 09/2024 Follows Cardiothoracic surgery at [facility] - last office visit 2022 Case reviewed with LM Anesthesia Pre-Procedure Meds Is the patient on any of the following meds?: GLP1/DPP4 and SGLT2 Inhib PMFSH Active Problems Active Problems: All Active Problems Chronic constipation (Acute) Family hx of colorectal cancer (Acute) Positive colorectal cancer screening using Cologuard test (Acute) Pre-procedural laboratory examination (Acute) Environmental allergies (Acute) Restrictive ventilatory defect (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 (Acute) Chronic cough (Acute) Left shoulder pain (Acute) Coarctation of aorta (Acute) MSSA (methicillin susceptible Staphylococcus aureus) infection (Acute) Asthma (Acute) Sludge in gallbladder (Acute) Past Medical History Medical History Family history of anesthesia complication Arthritis Vertigo MSSA (methicillin susceptible Staphylococcus aureus) infection Sludge in gallbladder Diabetes HTN (hypertension) Coarctation of aorta Asthma Surgical History Surgical History History of uvulopalatopharyngoplasty Hx of tonsillectomy Hx of heart surgery Hx of heart surgery Hx of circumcision S/P lobectomy of lung Status post aortic coarctation stent placement Social History Social History Are you a primary animal care provider to a significant other at home: No Do you presently have visiting nurse or other home services: No Alcohol intake: current Alcohol intake frequency: former alcohol drinker Patient Tobacco Use Status: Former Tobacco user Tobacco use type: Cigarette Cigarette Packs Per Day: 0.5 Years Smoked: 5 Substance Use Type: Marijuana Current occupational status: disabled Current occupation: right hand dominant Meds Allergies Allergy/AdvReac Type Severity Reaction Status Date / Time cinnamon Allergy Severe Swelling Verified 09/15/24 08:42 Penicillins Allergy Mild RASH Verified 09/15/24 08:42 lisinopril AdvReac Intermediate Cough Verified 09/15/24 08:42 Home Medications ?Medication ?Instructions ?Recorded ?Confirmed ?Last Taken ?Type amlodipine 10 mg tablet 10 mg PO QAM blood pressure 08/24/22 09/28/24 Unknown History aspirin 81 mg tablet,delayed 81 mg PO QAM 08/24/22 09/28/24 09/23/24 History release cyanocobalamin (vitamin B-12) 1,000 mcg PO QAM 08/24/22 09/28/24 Unknown History 1,000 mcg tablet rosuvastatin 10 mg tablet 10 mg PO QPM cholesterol 08/24/22 09/28/24 Unknown History losartan 100 mg tablet 100 mg PO DAILY 05/27/23 09/28/24 Unknown History empagliflozin 10 mg tablet 10 mg PO QAM 07/23/23 09/28/24 09/23/24 History (Jardiance) linagliptin 5 mg tablet (Tradjenta) 5 mg PO QAM 07/23/23 09/28/24 09/23/24 History furosemide 40 mg tablet (Lasix) 40 mg PO QAM 11/06/23 09/28/24 Unknown History metoprolol succinate 200 mg 100 mg PO BID 11/06/23 09/28/24 Unknown History tablet,extended release 24 hr metformin 500 mg tablet 500 mg PO QPM 09/28/24 09/28/24 Unknown History Exam Height,Weight and Vital Signs: Height 5 ft 6 in Weight 99.79 kg Pertinent Lab Results Pertinent Lab Results: Laboratory Tests 09/27/24 09:58 WBC 6.1 Hgb 16.2 Hct 49.3 Plt Count 165 Sodium 138 Potassium 4.2 Chloride 103 Carbon Dioxide 29 BUN 11 Creatinine 0.67 Narrative Narrative: CTA Chest 05/2024 IMPRESSION: 1. Interval resection of the stented descending thoracic aorta with placement of an anterior bypass extending from the low ascending aorta to the distal descending aorta just above the diaphragmatic hiatus. Possible very mild narrowing of the distal anastomosis. Otherwise no complication. 2. Interval reimplantation of the left common carotid artery with moderate proximal stenosis. Patent carotid-subclavian pass. 3. Interval left upper lobectomy with expected postsurgical changes. ECHO 08/2024 1. Overall nml LV function 2. Overall LV sys function is nml with EF 60-65% 3. Diastolic filling pattern is nml 4. Moderate with peak/mean pressure gradient of 24.96 / 15.6 mmHg. UZAIR by continuity = 0.9 cm2 5. Mild thickening of anterior mitral valve leaflet 6 Mild thickening of posterior mitral valve leaflet 8. Pulmo htn 9. Aortic root 3.0cm; Ascending aorta not visualized. Arch measures 3.4cm 10 No real change from 07/2023 Assessment and Plan Assessment Anesthesia Assessment: Chart Reviewed
--- NOTE | 2024-09-30 07:55 | MHC.SHP ---
Pre-Procedural Eval Section A - 24 Hr Update-Section A only Date of Service: 09/30/24 Section B - Complete if H&P > 30 days Chief Complaint: pos cologuard Details of Present Illness: PMH: Family history of anesthesia complication Arthritis Vertigo MSSA (methicillin susceptible Staphylococcus aureus) infection Sludge in gallbladder Diabetes HTN (hypertension) Coarctation of aorta Asthma Present Medications: see Short Stay Collaborative assessment Allergies: Allergies Allergy/AdvReac Type Severity Reaction Status Date / Time cinnamon Allergy Severe Swelling Verified 09/15/24 08:42 Penicillins Allergy Mild RASH Verified 09/15/24 08:42 lisinopril AdvReac Intermediate Cough Verified 09/15/24 08:42 Review of Systems Review of Systems Comment: 10 point ROS negative Exam Exam Comment: Gen appear: No acute distress HEENT: no icterus Chest: No overt resp distress Abd: soft, nontender, nondistended Psych: Stable affect, answering questions appropriately Neuro: A/Ox3 noted to move all extremities spontaneously Ext: no peripheral edema Plan Diagnosis/Plan: Unchanged I have reviewed the history and physical and performed a pertinent physical examination on my patient. No changes have occurred unless specified. Time Spent With Patient Time: Total time managing care of this patient today ____ minutes.
[2024-09-30 08:09] VITALS: BMI 36.0
[2024-09-30 08:10] LABS: Glucose, Whole Blood 163 mg/dL (60-115)
[2024-09-30] MEDS: Lactated Ringers 1,000 ML 100 ML IVCONT (08:22)
--- NOTE | 2024-09-30 08:29 | HO.ANESPROP2 ---
[facility] Active Problems Active Problems: All Active Problems (Updated 09/28/24 @ 12:23 by Ting Durand RN) Chronic constipation (Acute) Family hx of colorectal cancer (Acute) Positive colorectal cancer screening using Cologuard test (Acute) Pre-procedural laboratory examination (Acute) Environmental allergies (Acute) Restrictive ventilatory defect (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 (Acute) Chronic cough (Acute) Left shoulder pain (Acute) Coarctation of aorta (Acute) MSSA (methicillin susceptible Staphylococcus aureus) infection (Acute) Asthma (Acute) Sludge in gallbladder (Acute) Past Medical History Medical History Family history of anesthesia complication Arthritis Vertigo MSSA (methicillin susceptible Staphylococcus aureus) infection Sludge in gallbladder Diabetes HTN (hypertension) Coarctation of aorta Asthma Functional capacity: independent ambulation Family History Family history of problems with anesthesia: No Surgical History Surgical History History of uvulopalatopharyngoplasty Hx of tonsillectomy Hx of heart surgery Hx of heart surgery Hx of circumcision S/P lobectomy of lung Status post aortic coarctation stent placement Social History Social History Are you a primary resident care assistant to a significant other at home: No Do you presently have visiting nurse or other home services: No Alcohol intake: current Alcohol intake frequency: former alcohol drinker Patient Tobacco Use Status: Former Tobacco user Tobacco use type: Cigarette Cigarette Packs Per Day: 0.5 Years Smoked: 5 Substance Use Type: Marijuana Current occupational status: disabled Current occupation: right hand dominant Meds Allergies Allergy/AdvReac Type Severity Reaction Status Date / Time cinnamon Allergy Severe Swelling Verified 09/15/24 08:42 Penicillins Allergy Mild RASH Verified 09/15/24 08:42 lisinopril AdvReac Intermediate Cough Verified 09/15/24 08:42 Active Medications: Current Medications Albuterol Sulfate (Albuterol Sulfate (0.083%) 2.5 Mg/3 Ml Vial.Neb) 2.5 mg INHALE ONCE PRN PRN Reason: Shortness of Breath/Wheezing Lactated Ringer's (Lr) 1,000 mls @ 100 mls/hr IVCONT .Q10H BARBARA Last Admin: 09/30/24 08:22 Dose: 100 mls/hr Home Medications ?Medication ?Instructions ?Recorded ?Confirmed ?Last Taken ?Type amlodipine 10 mg tablet 10 mg PO QAM blood pressure 08/24/22 09/28/24 Unknown History aspirin 81 mg tablet,delayed 81 mg PO QAM 08/24/22 09/28/24 09/23/24 History release cyanocobalamin (vitamin B-12) 1,000 mcg PO QAM 08/24/22 09/28/24 Unknown History 1,000 mcg tablet rosuvastatin 10 mg tablet 10 mg PO QPM cholesterol 08/24/22 09/28/24 Unknown History losartan 100 mg tablet 100 mg PO DAILY 05/27/23 09/28/24 Unknown History empagliflozin 10 mg tablet 10 mg PO QAM 07/23/23 09/28/24 09/23/24 History (Jardiance) linagliptin 5 mg tablet (Tradjenta) 5 mg PO QAM 07/23/23 09/28/24 09/23/24 History furosemide 40 mg tablet (Lasix) 40 mg PO QAM 11/06/23 09/28/24 Unknown History metoprolol succinate 200 mg 100 mg PO BID 11/06/23 09/28/24 Unknown History tablet,extended release 24 hr metformin 500 mg tablet 500 mg PO QPM 09/28/24 09/28/24 Unknown History Exam Height,Weight and Vital Signs: Height 5 ft 6 in Weight 101.151 kg Pertinent Lab Results Pertinent Lab Results: Laboratory Tests 09/30/24 08:06 POC Glucose 163 H Airway Mallampati Class: III TM Dist: >3cm Neck ROM: Full Heart: RRR Lungs: CTA Assessment and Plan Final Anesthetic Review Family History of Problems with Anesthesia: No ASA Class: III Final Preanesthetic Review: Meds/Allgs Chart Reviewed, Consent Obtained/Reviewed and Anes Risks/Benef Reviewed Patient Risk: Intermediate Procedure Risk: Low Anesthetic Plan Anesthetic Plan: MAC: Disposition: Standard PACU
[2024-09-30 08:33] VITALS: BP 144/75; PULSE 66; RESP 18; TEMP 36.2; O2SAT 98
--- NOTE | 2024-09-30 09:27 | P.OPN-COLO_ITS ---
Colonoscopy Operative Note Operative Note Date of Service: 09/30/24 Narrative: Procedure: Colonoscopy Indication: Positive cologuard, Family history of colon cancer Endoscopist: Maryan Green MD Anesthesia Provider: Dr Nicole Kelsey Anesthesia type: MAC Instrument: Olympus [id number]-H190L Consent: Indication, risks vs benefits, and alternatives were discussed with the patient who gave written informed consent to proceed. EKG, pulse, pulse oximetry and blood pressure were monitored throughout the procedure. Please see anesthe larry flowsheet. Procedure: The patient was brought to the procedure room and placed in the left lateral decubitus position. IV medications were administered by the anesthesia provider in attendance. A digital rectal exam was performed which was normal. A distal attachment cap was affixed to the tip of the colonoscope which was then inserted through the anus and advanced through the colon to the cecum at 75 cm,and terminal ileum. Appendiceal orifice and ileocecal valve were identified. Mucosa was carefully examined under high definition white light as the instrumen t was slowly withdrawn in a retrograde panoramic fashion. Retroflexion was performed in rectum. The procedure was not difficult. There were no immediate obvious complications. The quality of the prep was BBPS: 2+3+3 = adequate Withdrawal time 18 minutes. Limitations: No limitations. Findings: Mucosa: Normal to cecum and terminal ileum. Protruding lesions: * 1 pedunculated polyp of size 15 mm in descending colon. Hot snare polypectomy was performed. The polyp was completely removed and retrieved. 2 cc of Endomark was placed at the site of polypectomy. * 1 sessile polyp of size 2 mm in rectum. Cold snare polypectomy was performed. The polyp was completely removed and retrieved. * Large internal hemorrhoids without stigmata of recent bleeding. Excavated lesions: * Mild diverticulosis of sigmoid colon. Impression: 1. Normal colon and terminal ileum mucosa 2. Total of 2 polyps removed 3. Internal hemorrhoids Recommendations: - Follow path results. - Repeat colonoscopy in 3 years if the descending colon polyp is an adenoma.
[2024-09-30 09:37] VITALS: BP 118/72; PULSE 79; RESP 16; TEMP 36.1; O2SAT 94
--- NOTE | 2024-09-30 09:48 | HO.POSTANES ---
Post Anesthesia Evaluation Post Anesthesia Evaluation Date of Service: 09/30/24 Vital Signs: Vital Signs Temp Pulse Resp BP Pulse Ox O2 Del Method 09/30/24 09:37 97.0 F 79 16 118/72 94 Room Air 09/30/24 08:33 97.1 F 66 18 144/75 H 98 Room Air Anesthesia: Monitored Mental Status: Awake Pain Control: Satisfactory Nausea/Vomiting: None Hydration: Adequate Anesthesia-Related Issues: No Anes. Related Issues
[2024-09-30 09:52] VITALS: BP 102/50; PULSE 73; RESP 18; O2SAT 94
[2024-09-30 10:12] VITALS: BP 116/67; PULSE 70; RESP 18; TEMP 36.6; O2SAT 95
== END 2024-09-30 10:26 | disposition home or self-care (01) ==
PROVIDERS: PCP Student in an Organized Health Care Education/Training Program; Visit Provider Internal Medicine
PROC: 0DJD8ZZ Inspection of Lower Intestinal Tract, Via Natural or Artificial Opening Endoscopic (ICD-10-PCS; CPT 45378; principal; 2024-09-30 09:20)
DX: R19.5 Other fecal abnormalities (principal); D12.4 Benign neoplasm of descending colon; K62.1 Rectal polyp; K57.30 Diverticulosis of large intestine without perforation or abscess without bleeding; K64.8 Other hemorrhoids; K59.09 Other constipation; Z80.0 Family history of malignant neoplasm of digestive organs; E11.9 Type 2 diabetes mellitus without complications; I10 Essential (primary) hypertension; J45.909 Unspecified asthma, uncomplicated; F12.90 Cannabis use, unspecified, uncomplicated; Z87.891 Personal history of nicotine dependence; Z79.82 Long term (current) use of aspirin; Z79.899 Other long term (current) drug therapy; Z79.84 Long term (current) use of oral hypoglycemic drugs
CPT/HCPCS: 45385; 45381; 82947; 88305; J2003; J2250; J2704

== ENCOUNTER → 2024-09-30 07:31 | Outpatient (BNV) | payer MEDICARE, MEDICAID, SELFPAY | PROVIDERS: PCP Student in an Organized Health Care Education/Training Program; Visit Provider Internal Medicine | DX: Z12.11 Encounter for screening for malignant neoplasm of colon (principal); R19.5 Other fecal abnormalities; D12.4 Benign neoplasm of descending colon; D12.8 Benign neoplasm of rectum; K57.30 Diverticulosis of large intestine without perforation or abscess without bleeding; K64.8 Other hemorrhoids | CPT/HCPCS: 45381; 45385 ==

== ENCOUNTER 2024-10-11 08:45 | Outpatient (AMB) | payer MEDICARE, MEDICAID, SELFPAY ==
--- OUTSIDE RECORDS SUMMARY | 2024-10-11 08:58 | XMS_ITS | Encounter Summary ---
Author Organization [facility] Address [address] [place] [address] Care Team Providers Care Fuller Brush Worker Name Role Phone Ramon West MD Unavailable [phone] Ramon West MD Primary Care Provider [phone] Reason for Visit * Reason Comments Medication Refill Encounter Details Date Type Department Care Team (Late st Contact Info) Description 10/09/2022 Refill [facility] Cardiothoracic Surgery [address] [phone] Kasia Casas PA-C [address] [address] Hypertension, unspecified type Social History [...] place to sleep or slept in a care home (including now)? No 08/26/2022 Sex and [...] type documented in this encounter Care Teams Fuller Brush Worker Relationship Specialty Start Date End Date Ramon West MD [address] [place] [address] PCP - General Surgery, Cardiac 10/09/22 Ramon West MD [address] [address] Surgery, Cardiac 08/26/22 Hiren Radford [address] [place] [address] Data Management Manager Cardiovascular Disease 10/02/22 Rust [address] [place] [address] Primary Care Provider General Medicine 10/02/22 documented as of this encounter
--- OUTSIDE RECORDS SUMMARY | 2024-10-11 08:58 | XMS_ITS | Encounter Summary ---
Author Organization [employer] Address [address] [facility] 7[address] [place] [address] Care Team Providers Care Power Nut Runner Operator Name Role Phone Celia Torres MD Primary Care Provider [phone] Danielle Kaufman OD Unavailable [phone] Larissa Trujillo DDS Unavailable [phone] Obdulia Restrepo Unavailable [phone] Dustin Falcon MD Unavailable Belinda Sears MD Unavailable [phone] Dipak Urban MD Unavailable [phone] Hiren Radford MD Unavailable [phone] Encounter Details Date Type Department Care Team (Late st Contact Info) Description 08/24/2024 Orders Only [facility] [address] [place] [address] Provider, MD Quynh Social History Tobacco Use [...] Care Team (Late st Contact Info) Description 12/29/2024 2:00 PM EDT Office Visit [facility] [address] [place], [place] [id number] Teressa Velazquez, OD [address] [place] [address] documented as of this encounter Procedures Procedure [...] documented as of this encounter Care Teams Power Nut Runner Operator Relationship Specialty Start Date End Date Celia Torres MD [address] [place] [address] PCP - General Family Medicine 03/10/12 Danielle Kaufman OD [address] [place] [address] Optometry 09/03/18 Larissa Trujillo DDS [address] [place] [address] Resident [facility] 05/23/13 Obdulia Restrepo [address] [place] [address] Rn Resource Nurse 05/27/23 Dustin Falcon MD [address] [place] [address] [address] [place] [address] Orthopaedic Surgery 04/08/23 Belinda Sears MD [address] [facility] 404 [place] [address] Referring Physician Family Medicine 07/23/23 Dipak Urban MD [address] 3rd [place] [address] Surgeon General Surgery 04/17/23 Hiren Radford MD [address] [place] [address] Car Stower Cardiology 09/03/18 Serjio Christianson MD [address] [place] [address] Vascular 01/26/24 documented as of this encounter
--- NOTE | 2024-10-11 09:04 | A.OFFVIS_ITS ---
Intake Visit Reasons: erectile dysfunction Intake Note: New Patient presents for initial visit for Erectile Dysfunction Urology Medications: none Blood Thinner: Aspirin Diabetic: yes Medical Assembly Required: No Accompanied by: Self / Same As Patient Allergies cinnamon Allergy (Severe, Verified 10/11/24 23:33) Swelling Penicillins Allergy (Mild, Verified 10/11/24 23:33) RASH lisinopril Adverse Reaction (Intermediate, Verified 10/11/24 23:33) Cough Medication List - Last Reconciled 10/11/24 by YESY Marie-KYLIE albuterol sulfate 90 mcg/actuation (Ventolin HFA) 2 puffs inhalation Q4H PRN amlodipine 10 mg PO QAM aspirin 81 mg PO QAM cyanocobalamin (vitamin B-12) 1,000 mcg PO QAM empagliflozin (Jardiance) 10 mg PO QAM fluticasone furoate-vilanterol 200-25 mcg/dose (Breo Ellipta) 1 inh inhalation DAILY hydralazine 25 mg PO linagliptin (Tradjenta) 5 mg PO QAM losartan 100 mg PO DAILY rosuvastatin 10 mg PO QPM HPI Comments Details: David is a pleasant 59-year-old male patient of Dr. Torres. 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 cardiology and asthma. He presents to the office today as a new patient for erectile dysfunction. In discussion with the patient today he reports ED has been present for over 2-1/2 years and feels symptoms have progressively worsen. He reports he is unable to obtain and or maintain his erections. He denies any previous trauma. He discusses his longstanding history of cardiac issues and had an extensive 15 hour surgical procedure 2 years ago where he underwent reinsertion of cardiac stent and bypass surgery as well as potential partial nephrectomy of left kidney. He reports be following up with providers at [facility] for this ongoing issue. We did discussed at length potential causes of ED as well as further treatment options and risks and benefits of these treatment options. We discussed at length lifestyle modifications to assist with ED as well as overall health and well- being. He otherwise denies any bothersome urinary issues. He denies urinary urgency, urinary frequency, incontinence, nocturia, hematuria, dysuria, foul smelling urine, changes to urinary stream, flank pain, fever, and or chills. He is happy with his current voiding parameters. He discusses his recent colonoscopy here at [facility]. He denies any recreational drug use and or alcohol dependence. All questions were answered. He otherwise offers no other issues or concerns. Plan The plan includes obtaining blood work to assess hormone levels, including testosterone, and to check the prostate-specific antigen PSA) level. Lifestyle modifications were discussed, including stress reduction, weight management, and regular physical activity to improve erectile function. Pharmacological options such as oral medications Cialis and Viagra) and injection therapy were explained as potential treatments for erectile dysfunction. The possibility of a penile prosthesis was mentioned if other treatments are ineffective, with a discussion of the associated risks and benefits. Patient was informed and verbally consented to the use of an ambient scribe for clinic note documentation during this visit. Discussion Notes I discussed with the patient the potential causes of erectile dysfunction. We reviewed lifestyle changes that could improve erectile function, such as reducing stress, losing weight, and engaging in regular physical activity. I explained the treatment options, including oral medications, injection therapy, and penile prosthesis, detailing the risks and benefits of each. We also discussed penile pumps in rings. The patient was informed about the need for blood work to evaluate hormone levels and PSA. [facility] Medical History Family history of anesthesia complication Arthritis Vertigo MSSA (methicillin susceptible Staphylococcus aureus) infection Sludge in gallbladder Diabetes HTN (hypertension) Coarctation of aorta Asthma Surgical History History of uvulopalatopharyngoplasty Hx of tonsillectomy Hx of heart surgery Hx of heart surgery Hx of circumcision S/P lobectomy of lung Status post aortic coarctation stent placement Social History Are you a primary geriatric personal care aide to a significant other at home: No Do you presently have visiting nurse or other home services: No Alcohol intake: current Alcohol intake frequency: former alcohol drinker Patient Tobacco Use Status: Former Tobacco user Tobacco use type: Cigarette Cigarette Packs Per Day: 0.5 Years Smoked: 5 Substance Use Type: Marijuana Current occupational status: disabled Current occupation: right hand dominant Review of Systems Eyes Reports no additional complaints ENT Reports no additional complaints Card Reports as per [facility] Resp Reports as per [facility] GI Reports as per [facility] Reports as per [facility] Musc Reports as per [facility] Neuro Reports as per HPI Psych Reports no additional complaints Endo Reports as per [facility]PI Otto/Lymph Reports no additional complaints Aller/Immun Reports no additional complaints Physical Exam Const General: cooperative, healthy appearing, comfortable, no acute distress, well developed, alert and awake Nutritional Appearance: overweight Orientation/consciousness: patient oriented x3 Limitations: no limitations HEENT Head: Yes normal to inspection, Yes normocephalic and Yes atraumatic Ears: hearing grossly normal bilaterally Eyes General: appearance normal, both eyes and all related structures Neck Neck: Yes normal visual inspection and Yes trachea midline Chest Chest palpation & inspection: normal inspection of the chest Resp Effort & Inspection: normal respiratory effort and able to speak in complete sentences Cardio Rate: regular rate GI Inspection: Yes normal to inspection General: Yes no CVA tenderness Back/Spine/Pelvis Back: no CVA tenderness Skin General skin exam: no rashes or lesions noted Neuro General: patient oriented x3 Extrem General: Yes normal to inspection Psych Appearance: grossly normal and well kempt Mental Status: mental status grossly normal Speech and movement: Normal speech and movement present and Clear speech present Affect: normal affect Attitude: cooperative Thought process: Normal thought process present Thought content: Normal thought content present Insight: Fair insight present (Psych) Judgement: Fair judgement present (Psych) Assessment & Plan Assessment & Plan (1) Erectile dysfunction: Code(s): N52.9 - Male erectile dysfunction, unspecified Category: Medical Plan Unable to obtain urine for urinalysis as patient unable to void. Will obtain PSA, testosterone, and A1c for further assessment evaluation. We did discussed at length potential causes of ED as well as further treatment options and risks and benefits of these treatment options. We discussed lifestyle modifications to assist with ED as well as overall health and well-being. We did discussed the importance of management and diabetes for improvement in ED as well as overall health and well-being. He denies any bothersome urinary issues. He reports be happy with current voiding parameters. Follow-up in 1-3 months with labs to be completed prior; or sooner with any issues, concerns, and or questions. Orders: Orders Prostate Specific Antigen Today N52.9 - Male erectile dysfunction, unspecified Testosterone, Free/Total Today N52.9 - Male erectile dysfunction, unspecified Hemoglobin A1c Today E11.9 - Type 2 diabetes mellitus without complications Patient Instructions: The patient had an opportunity to ask questions regarding the treatment plan. All questions were answered. Physical exam, labs, and imaging were discussed and reviewed in detail. As well as risks, benefits, and discussion of treatment choices. No major barriers to understanding were identified. The patient expressed understanding and agreement with the above treatment plan. The patient was made aware they should contact our office by phone for worsening of their current condition, the appearance of new symptoms, or with any questions or concerns. Compliance is encouraged with any medications and follow up testing that is ordered. It is a privilege to be allowed the opportunity to participate in? your urological care.? Again, if you have any questions or concerns If you have any questions or concerns please do not hesitate to contact me. The office is [phone]. This note is constructed using voice recognition software. While every effort has been made to ensure accuracy brick and blocker aid labor errors may have been included. Yours sincerely, MIGUELINA Marie Coding Level of Care Code New Pt Level 3 (02533) Diagnoses Erectile dysfunction N52.9
== END 2024-10-11 09:58 | disposition home or self-care (01) ==
LOC: HO.HUSH 08:45
PROVIDERS: PCP Student in an Organized Health Care Education/Training Program; Visit Provider Nurse Practitioner Family
DX: N52.9 Male erectile dysfunction, unspecified (principal)
CPT/HCPCS: 99203

== ENCOUNTER → 2024-10-11 08:45 | Outpatient (BNVA) | payer MEDICARE, MEDICAID, SELFPAY | PROVIDERS: PCP Student in an Organized Health Care Education/Training Program; Visit Provider Nurse Practitioner Family | DX: N52.9 Male erectile dysfunction, unspecified (principal); E11.9 Type 2 diabetes mellitus without complications; Z79.82 Long term (current) use of aspirin; Z79.51 Long term (current) use of inhaled steroids; Z79.899 Other long term (current) drug therapy | CPT/HCPCS: 99202 ==

== ENCOUNTER 2024-10-13 09:20 | Outpatient (REF) | payer MEDICARE, MEDICAID, SELFPAY ==
--- OUTSIDE RECORDS SUMMARY | 2024-10-13 09:38 | XMS_ITS | Encounter Summary ---
Author Organization [facility] Address [address] [place] [address] Care Team Providers Care Account Solutions Analyst Name Role Phone Ramon West MD Unavailable [phone] Ramon West MD Primary Care Provider [phone] Reason for Visit * Reason Comments Medication Refill Encounter Details Date Type Department Care Team (Late st Contact Info) Description 10/09/2022 Refill [facility] Cardiothoracic Surgery [address] [address] Kasia Casas PA-C [address] [address] Hypertension, unspecified type Social History [...] type documented in this encounter Care Teams Account Solutions Analyst Relationship Specialty Start Date End Date Ramon West MD [address] [place] [address] PCP - General Surgery, Cardiac 10/09/22 Ramon West MD [address] [address] Surgery, Cardiac 08/26/22 Hiren Radford [address] [place] [address] [employer]ator Cardiovascular Disease 10/02/22 [facility] [address] [place] [address] Primary Care Provider General Medicine 10/02/22 documented as of this encounter
--- OUTSIDE RECORDS SUMMARY | 2024-10-13 09:38 | XMS_ITS | Encounter Summary ---
Author Organization [employer] Address [address] [facility] 7t [place] [address] Care Team Providers Care Windows Security Engineer Name Role Phone Celia Torres MD Primary Care Provider [phone] Danielle Kaufman OD Unavailable [phone] Larissa Trujillo DDS Unavailable [phone] Obdulia Restrepo Unavailable [phone] Dustin Falcon MD Unavailable Belinda Sears MD Unavailable [phone] Dipak Urban MD Unavailable [phone] Hiren Radford MD Unavailable [phone] Encounter Details Date Type Department Care Team (Late st Contact Info) Description 08/24/2024 Orders Only [facility] [address] [place] [address] Provider, MD Quynh Social History Tobacco Use [...] Description 12/29/2024 2:00 PM EDT Office Visit [facility] [address] [place], [place] [id number] Teressa Velazquez, OD [address] [place] [address] documented as of this encounter Procedures Procedure [...] documented as of this encounter Care Teams Windows Security Engineer Relationship Specialty Start Date End Date Celia Torres MD [address] [place] [address] PCP - General Family Medicine 03/10/12 Danielle Kaufman OD [address] [place] [address] Optometry 09/03/18 Larissa Trujillo DDS [address] [place] [address] Resident Dental Plant Operator/Shift Supervisor 05/23/13 Obdulia Restrepo [address] [place] [address] And Building 05/27/23 Dustin Falcon MD [address] [place] [address] [address] [place] [address] Orthopaedic Surgery 04/08/23 Belinda Sears MD [address] [facility] 404 [place] [address] Referring Physician Family Medicine 07/23/23 Dipak Urban MD [address] 3rd [place] [address] Surgeon General Surgery 04/17/23 Hiren Radford MD [address] [place] [address] Digital Media Representative Cardiology 09/03/18 Serjio Christianson MD 35[address] [place] [address] Vascular 01/26/24 documented as of this encounter
--- OUTSIDE RECORDS SUMMARY | 2024-10-13 09:39 | XMS_ITS ---
Author Name [facility] Organization Unknown History of Medication Use Medication Directions Dispensed Refills Start Date End Date Stat us cephalexin (KEFLEX) 500 MG capsule Take 1 capsule (500 mg total) by mouth 2 (two) times a day. 09/30/2022 10/04/2022 active amLODIPine (NORVASC) 10 MG tablet Take 1 tablet (10 mg total) by mouth daily. Do not start before September 17, 2022. 09/17/2022 11/17/2022 active lisinopril (PRINIVIL,ZeSTRIL) 40 MG tablet Take 1 tablet (40 mg total) by mouth daily. Do not start before September 17, 2022. 09/17/2022 active guaiFENesin (MUCINEX) 600 MG 12 hr tablet Take 1 tablet (600 mg total) by mouth 2 times daily (every 12 hours) as needed for cough or congestion. 09/16/2022 10/17/2022 active ibuprofen (MOTRIN) 400 MG tablet Take 1 tablet (400 mg total) by mouth 4 times daily (every 6 hours) as needed for mild pain or moderate pain. 09/16/2022 10/17/2022 active HYDROmorphone (DILAUDID) 2 MG tablet Take 1 tablet (2 mg total) by mouth 4 times daily (every 6 hours) as needed for severe pain. Max Daily Amount: 8 mg 09/16/2022 09/20/2022 active tamsulosin (FLOMAX) 0.4 MG capsule Take 1 capsule (0.4 mg total) by mouth nightly. 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 [facility] Skin scar contracture active 2023-03-17 ProblemAct [facility] Encounters Encounter Type Encounter Reason Primary Diagnosis Location Date Ambulatory Scar conditions and fibrosis of skin Scar conditions and fibrosis of skin [facility] 03/17/2023 Ambulatory Encounter for follow-up examination after completed treatment for conditions other than malignant neoplasm Encounter for follow-up examination after completed treatment for conditions other than malignant neoplasm [facility] 01/15/2023 Ambulatory Encounter for follow-up examination after completed treatment for conditions other than malignant neoplasm Encounter for follow-up examination after completed treatment for conditions other than malignant neoplasm [facility] 01/15/2023 Ambulatory Encounter for follow-up examination after completed treatment for conditions other than malignant neoplasm Encounter for follow-up examination after completed treatment for conditions other than malignant neoplasm [facility] 01/15/2023 Ambulatory Encounter for follow-up examination after completed treatment for conditions other than malignant neoplasm [facility] 10/09/2022 Ambulatory Encounter for follow-up examination after completed treatment for conditions other than malignant neoplasm [facility] 10/09/2022 Ambulatory Encounter for follow-up examination after completed treatment for conditions other than malignant neoplasm [facility] 10/09/2022 Ambulatory Essential (prima ry) hypertension [facility] 10/09/2022 Ambulatory Bacteremia [facility] 09/30/2022 Inpatient Aneurysm of unspecified site [facility] 08/24/2022 Care Team Organization Name Specialty Phone Email Start Date End Da te [facility] LAYLA TOLENTINO Primary Care 10/09/202206/23 [facility] Layla Tolentino Primary Care 10/09/202210/09 [facility] PCP,No Primary Care 09/30/2022 06/23/2024 [facility] 08/25/2022 06/23/2024 [facility] NO PCP Primary Care 08/24/2022 08/25/2022 [facility]
[2024-10-13 10:54] LABS: Hemoglobin A1C 269.3336 umol/L; Total Hemoglobin (HGBA1C) 4074.6752 umol/L
[2024-10-13 11:16] LABS: Prostate Specific Antigen 0.48 ng/mL (<0.05-4.0)
[2024-10-17 20:42] LABS: Testosterone, Free 50.1 pg/mL (35.0-155.0)
== END 2024-10-13 09:21 | disposition home or self-care (01) ==
LOC: HO.LAB 09:20
PROVIDERS: PCP Student in an Organized Health Care Education/Training Program; Visit Provider Nurse Practitioner Family
DX: N52.9 Male erectile dysfunction, unspecified (principal); E11.9 Type 2 diabetes mellitus without complications
CPT/HCPCS: 36415; 83036; 84153; 84402; 84403

== ENCOUNTER 2024-11-11 09:09 | Outpatient (REF) | payer MEDICARE, MEDICAID, SELFPAY ==
--- NOTE | ~2024-11-11 | XR_ITS ---
EXAMINATION: XR KNEE, RIGHT CLINICAL INFORMATION: M17.11 - Unilateral primary osteoarthritis, right knee COMPARISON: February 11, 2018. TECHNIQUE: AP view in standing positions both knees. Lateral and sunrise views of the right knee. FINDINGS: Mild joint space narrowing involving the lateral compartment, right knee. Exostosis at the patellar tendon insertion both patella and anterior tibial tuberosity. Small exostosis at the quadriceps tendon insertion. No acute cortical disruption or malalignment. No gross suprapatellar calcified joint effusion. Vascular calcifications XR/XR knee RT 3V IMPRESSION: Lateral compartment osteoarthritis/osteoarthrosis, mild. Enthesopathy, patellar tendon. Enthesopathy, mild, quadriceps tendon. Electronically signed by: Marcelo Thompson MD 11/12/2024 08:11 AM EDT
--- OUTSIDE RECORDS SUMMARY | 2024-11-11 09:29 | XMS_ITS | Encounter Summary ---
Author Organization [facility] Address [address] [place] [address] Care Team Providers Care Cytology Manager Name Role Phone Ramon West MD Unavailable Ramon West MD Primary Care Provider [phone] Reason for Visit * Reason Comments Medication Refill Encounter Details Date Type Department Care Team (Late st Contact Info) Description 10/09/2022 Refill [facility] Cardiothoracic Surgery [address] [address] Kasia Casas PA-C [address] [address] Hypertension, unspecified type Social History [...] type documented in this encounter Care Teams Cytology Manager Relationship Specialty Start Date End Date Ramon West MD 85 [place] [address] PCP - General Surgery, Cardiac 10/09/22 Ramon West MD [address] [address] Surgery, Cardiac 08/26/22 Hiren Radford [address] [place] [address] [facility] Cardiovascular Disease 10/02/22 [facility] 230 [place] [address] Primary Care Provider General Medicine 10/02/22 documented as of this encounter
== END 2024-11-11 09:10 | disposition home or self-care (01) ==
LOC: HO.HOSX 09:09
PROVIDERS: Visit Provider Physician Assistant
DX: M17.11 Unilateral primary osteoarthritis, right knee (principal); M76.51 Patellar tendinitis, right knee
CPT/HCPCS: 73562; 99212

== ENCOUNTER 2024-11-11 14:38 | Outpatient (AMB) | payer MEDICARE, MEDICAID, SELFPAY ==
--- NOTE | 2024-11-11 14:58 | MHC.OFFVIS ---
Intake Visit Reasons: [employer] knee injury 09/07/2014 at [employer] Intake Note: David is a 59 year old male who presents today as an established patient, new problem visit for an evaluation of right knee. Hx of right knee injury 09/07/2014. Patient reports a painful lump located at the anterior aspect of knee, just below his kneecap. States discomfort around lump and pulsing pain presents with ambulation. Denies any recent injury. No recent treatment to his right knee. Allergies cinnamon Allergy (Severe, Verified 10/11/24 23:33) Swelling Penicillins Allergy (Mild, Verified 10/11/24 23:33) RASH lisinopril Adverse Reaction (Intermediate, Verified 10/11/24 23:33) Cough cockaroach Allergy (Uncoded 11/11/24 15:02) Unknown Medication List - Last Reconciled 11/11/24 by Naina Meng PA-C albuterol sulfate 90 mcg/actuation (Ventolin HFA) 2 puffs inhalation Q4H PRN amlodipine 10 mg PO QAM aspirin 81 mg PO QAM cephalexin 500 mg PO BID cyanocobalamin (vitamin B-12) 1,000 mcg PO QAM empagliflozin (Jardiance) 10 mg PO QAM fluticasone furoate-vilanterol 200-25 mcg/dose (Breo Ellipta) 1 inh inhalation DAILY hydralazine 25 mg PO linagliptin (Tradjenta) 5 mg PO QAM losartan 100 mg PO DAILY rosuvastatin 10 mg PO QPM HPI HPI [employer] knee injury 09/07/2014 at [employer]: Details: 59-year-old gentleman presents to the office today for right knee pain. He states on 09/07/2014 he fell at [employer] and injury the right knee. He states he did not need surgery but he did attend physical therapy. He states at the time of his injury he did not have any deficits for example lack of extension or flexion. [facility] Medical History Family history of anesthesia complication Arthritis Vertigo MSSA (methicillin susceptible Staphylococcus aureus) infection Sludge in gallbladder Diabetes HTN (hypertension) Coarctation of aorta Asthma Surgical History History of uvulopalatopharyngoplasty Hx of tonsillectomy Hx of heart surgery Hx of heart surgery Hx of circumcision S/P lobectomy of lung Status post aortic coarctation stent placement Social History Are you a primary technical healthcare consultant to a significant other at home: No Do you presently have visiting nurse or other home services: No Alcohol intake: current Alcohol intake frequency: former alcohol drinker Patient Tobacco Use Status: Former Tobacco user Tobacco use type: Cigarette Cigarette Packs Per Day: 0.5 Years Smoked: 5 Substance Use Type: Marijuana Current occupational status: disabled Current occupation: right hand dominant Review of Systems Const All systems reviewed & are unremarkable except as noted in HPI and below Physical Exam Extrem Other: Right knee normal to inspection. He does have a prominent tibial tubercle without tenderness to palpation. Can fully flex and extend the knee. Mild tenderness over the patellar tendon. Results Reviewed Results Reviewed: X-rays of the right knee obtained in the office today and reviewed by me show well-preserved joint space with evidence of posttraumatic changes along the inferior pole of the patella and tibial tubercle. No acute abnormalities. Assessment & Plan Assessment & Plan (1) Patellar tendinitis, right knee: Code(s): M76.51 - Patellar tendinitis, right knee Category: Medical Plan: At this time I recommend a course of physical therapy to work on patellar stabilization techniques. I explained he likely injured the knee back in 2014 which resulted in some tendonitis in the patellar tendon. Patient is content with this plan and he will avoid activities such as kneeling that cause pain. If there is any concerns he will contact our office otherwise follow up as needed. Orders: Orders XR knee RT 3V Today M17.11 - Unilateral primary osteoarthritis, right knee PT Evaluation and Treatment Today M76.51 - Patellar tendinitis, right knee Coding Level of Care Code New Pt Level 3 (94273) Complex EM visit Add On G2211 Diagnoses Patellar tendinitis, right knee M76.51
== END 2024-11-11 15:24 | disposition home or self-care (01) ==
PROVIDERS: PCP Student in an Organized Health Care Education/Training Program; Visit Provider Physician Assistant
DX: M76.51 Patellar tendinitis, right knee (principal)
CPT/HCPCS: 99213; G2211

== ENCOUNTER → 2024-11-11 14:41 | Outpatient (BNV) | payer MEDICARE, MEDICAID, SELFPAY | PROVIDERS: Visit Provider Radiology Diagnostic Radiology | DX: M17.11 Unilateral primary osteoarthritis, right knee (principal) | CPT/HCPCS: 73562 ==

== ENCOUNTER 2024-11-24 09:05 | Outpatient (AMB) | payer MEDICARE, MEDICAID, SELFPAY ==
--- NOTE | 2024-11-24 09:07 | MHC.OFFVIS ---
Vital Signs 11/24/24 09:09 Height 5 ft 6 in Weight 224 lb 4 oz BMI 36.2 BP 160/72 H Blood Pressure Location Rt brachial Position Sitting Pulse 67 Pulse Source Pulse Oximeter Pulse Oximetry (%) 98 Oxygen Delivery Method Room Air Intake Visit Reasons: chronic cough/ CT FU Allergies cinnamon Allergy (Severe, Verified 11/24/24 09:11) Swelling Penicillins Allergy (Mild, Verified 11/24/24 09:11) RASH lisinopril Adverse Reaction (Intermediate, Verified 11/24/24 09:11) Cough cockaroach Allergy (Uncoded 11/24/24 09:11) Unknown HPI HPI chronic cough/ CT FU: Details: David is a pleasant 59 year old male, former 20 pack year smoker, quit 1992, with underlying asthma and aortic coarctation (repaired multiple times since childhood) s/p TEVAR which was complicated by 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 He is currently under the care of ID with Dr. Sears who maintains Keflex prescription. He is also followed by Dr. Boone, at [facility]. He initially presented to office as he reported intermittent productive cough with green sputum in the morning that was present since the surgery in 2022. He completed a course of Levaquin June 2023 in addition to Keflex and had complete resolution of cough. At the last visit he reported return of productive cough with whitish sputum with associated wheezing and dyspnea. Patient did note that he was not using any respiratory medications and Breo was sent. Unfortunately, he has yet to picker tender prescription. He also notes productive green cough has returned over the last two months. Of note, he reports discontinuation of all cardiac and diabetic medications without the supervision of cardiology/PCP. Encouraged patient to reach out to other providers [facility] to further discuss. He also notes inconsistent use of Bactrim. [facility] Medical History Family history of anesthesia complication Arthritis Vertigo MSSA (methicillin susceptible Staphylococcus aureus) infection Sludge in gallbladder Diabetes HTN (hypertension) Coarctation of aorta Asthma Surgical History History of uvulopalatopharyngoplasty Hx of tonsillectomy Hx of heart surgery Hx of heart surgery Hx of circumcision S/P lobectomy of lung Status post aortic coarctation stent placement Social History Are you a primary career services assistant to a significant other at home: No Do you presently have visiting nurse or other home services: No Alcohol intake: current Alcohol intake frequency: former alcohol drinker Patient Tobacco Use Status: Former Tobacco user Tobacco use type: Cigarette Cigarette Packs Per Day: 0.5 Years Smoked: 5 Substance Use Type: Marijuana Current occupational status: disabled Current occupation: right hand dominant Review of Systems Const Denies chills, Denies excessive sweating, Denies fever(s), Denies headache(s) and Denies night sweats Eyes Denies dry eyes and Denies irritation ENT Reports Normal hearing present, Denies headache(s), Denies nasal congestion, Denies nasal discharge and Denies sore throat Card Denies chest pain, Denies chest pain at rest, Denies chest pain with activity, Denies claudication, Denies leg edema, Reports dyspnea on exertion, Denies orthopnea and Denies paroxysmal nocturnal dyspnea Resp Reports chest congestion, Reports cough, Denies hemoptysis, Denies pain on inspiration, Denies pain with cough, Reports dyspnea on exertion, Denies stridor and Reports wheezing Musc Denies myalgias Neuro Reports Normal hearing present and Denies headache(s) Endo Denies excessive sweating Otto/Lymph Denies lymphadenopathy Aller/Immun Denies seasonal rhinorrhea and Reports wheezing Physical Exam Vital Signs: Last Vital Signs Pulse 67 11/24/24 09:09 BP 160/72 H 11/24/24 09:09 Pulse Ox 98 11/24/24 09:09 Oxygen Delivery Method Room Air 11/24/24 09:09 BMI result Body Mass Index 36.2 Const General: cooperative, healthy appearing, comfortable, no acute distress, well developed and alert Nutritional Appearance: obese Orientation/consciousness: patient oriented x3 Limitations: no limitations HEENT Head: Yes normal to inspection, Yes normocephalic and Yes atraumatic Ears: hearing grossly normal bilaterally and external ears normal Eyes General: appearance normal, both eyes and all related structures Eyelids: Yes eyelids normal Sclerae: sclerae normal EOM: EOMs intact bilaterally Neck Neck: Yes normal visual inspection and Yes no lymphadenopathy Lymphatic: no lymphadenopathy noted Chest Chest palpation & inspection: normal inspection of the chest Resp Effort & Inspection: normal respiratory effort, able to speak in complete sentences, no audible wheezes, no cough, no stridor, not tachypneic, no tripod positioning and no use of accessory muscles Auscultation: clear to auscultation bilaterally Cardio Jugular venous distension: no JVD Rate: regular rate Rhythm: regular rhythm Skin Other: warm, dry General skin exam: no rashes or lesions noted Neuro General: patient oriented x3 Cranial nerves: Yes Normal hearing present Cognition (Neuro): normal cognition Gait exam (Neuro): Normal gait present Extrem General: Yes normal to inspection, Yes capillary refill normal, Yes no clubbing, cyanosis or edema and Yes no pedal edema Psych Appearance: grossly normal and well kempt Speech and movement: Normal speech and movement present and Clear speech present Affect: normal affect Attitude: cooperative Thought process: Normal thought process present Thought content: Normal thought content present Insight: Good insight present (Psych) Judgement: Good judgement present (Psych) Assessment & Plan Assessment & Plan (1) Asthma: Code(s): J45.909 - Unspecified asthma, uncomplicated Category: Medical (2) Status post partial lobectomy of lung: Code(s): Z90.2 - Acquired absence of lung [part of] Category: Surgical (3) Restrictive ventilatory defect: Code(s): R94.2 - Abnormal results of pulmonary function studies Category: Medical Plan Encouraged Aramin to restart Breo, will refill. Will also treat bronchitic symptoms with Levaquin with extended course given complexity of prior infection. Reeducated patient on inhaler technique and importance of good oral hygiene to prevent thrush as well as importance of medication compliance. Patient aware to call if he is unable to picker tender Breo. Will also send for chest CT to assess for any abscess development given extensive cardiopulmonary surgery and inconsistent use of suppressive abx. All questions were answered and patient is in agreement of plan. Will follow-up in 4-6 weeks or sooner if needed. Orders: Orders CT chest w IV con Today A49.01 - Methicillin susceptible Staphylococcus aureus infection, unspecified site, R05.3 - Chronic cough, Z90.2 - Acquired absence of lung [part of] Medications: New levofloxacin 750 mg PO DAILY 14 tabs 0RF Refilled fluticasone furoate-vilanterol 200-25 mcg/dose (Breo Ellipta) 1 inh inhalation DAILY 60 ea 4RF Coding Level of Care Code Est Pt Level 4 (26806) Complex EM visit Add On G2211 Diagnoses Asthma J45.909 Status post partial lobectomy of lung Z90.2 Restrictive ventilatory defect R94.2
[2024-11-24 09:09] VITALS: BP 160/72; PULSE 67; O2SAT 98; BMI 36.2
--- OUTSIDE RECORDS SUMMARY | 2024-11-24 09:48 | XMS_ITS | Encounter Summary ---
Author Organization [facility] Address [address] [place] [address] Care Team Providers Care Credit Rating Checker Name Role Phone Ramon West MD Unavailable [phone] Ramon West MD Primary Care Provider [phone] Reason for Visit * Reason Comments Medication Refill Encounter Details Date Type Department Care Team (Late st Contact Info) Description 10/09/2022 Refill [facility] Cardiothoracic Surgery [address] [address] Kasia Csaas PA-C [address] [address] Hypertension, unspecified type Social History [...] place to sleep or slept in a snf (including now)? No 08/26/2022 Sex and Gender [...] type documented in this encounter Care Teams Credit Rating Checker Relationship Specialty Start Date End Date Ramon West MD 85 [place] [address] PCP - General Surgery, Cardiac 10/09/22 Ramon West MD [address] [address] Surgery, Cardiac 08/26/22 Hiren Radford [address] [place] [address] Customer Services Supervisor Cardiovascular Disease 10/02/22 [facility] [address] [place] [address] Primary Care Provider General Medicine 10/02/22 documented as of this encounter
--- OUTSIDE RECORDS SUMMARY | 2024-11-24 09:48 | XMS_ITS | Encounter Summary ---
Author Organization [facility] [employer] Address [address] [facility] 7t [place] [address] Care Team Providers Care Branner Machine Tender Name Role Phone Celia Torres MD Primary Care Provider [phone] Danielle Kaufman OD Unavailable [phone] Larissa Trujillo DDS Unavailable Unavailabl e Obdulia Restrepo Unavailable [phone] Dustin Falcon MD Unavailable Belinda Sears MD Unavailable [phone] Dipak Urban MD Unavailable Hiren Radford MD Unavailable Encounter Details Date Type Department Care Team (Late st Contact Info) Description 10/14/2022 Orders Only [facility] MEDICINE [address] [place], [place] [phone] Shalonda Srinivasan, PharmD [address] [place], [place] [phone] Social History Tobacco Use Types Packs/Day Years Used Date Smoking Tobacco: Never Smokeless Tobacco: Never Alcohol Use Standard Drinks/Week Comments Not Currently 0 (1 standard drink = 0.6 oz pur e alcohol) Depression Answer Date Recorded Patient Health Questionnaire-9 Score 1 07/09/2022 Depression Answer Date Recorded Patient Health Questionnaire-2 Score 1 07/09/2022 Sex and Gender Information Value Date Recorded Sex Assigned at Male 02/04/2022 10:14 AM EDT Legal Sex Male 10:14 AM EDT Gender Identity Male 02/04/2022 10:14 AM EDT Sexual Orientation Choose not to disclose 2021 10:14 AM EDT COVID-19 Exposure Response Date Recorded In the last 10 days, have yo u been in contact with someone who was confirmed or suspected to have Coronavirus/COVID-19? No / Unsure 10/11/2022 9:28 AM EDT documented as of this encounter Plan of Treatment Upcoming Encounters Date Type Department Care Team (Late st Contact Info) Description 12/07/2024 8:45 AM EDT Office Visit [facility] CHC MED & PEDS [address] [place] [address] Celia Torres MD [address] [place] [address] 12/29/2024 2:00 PM EDT Office Visit [facility] OPTOMETRY [address] [place] [address] Teressa Velazquez OD [address] [place] [address] documented as of this encounter Visit Diagnoses Not on filedocumented in this encounter Additional Health Concerns Assessment Noted Time PHQ-9 Depression Total Score: 1 07/10/19 23 10:12 AM EDT documented as of this encounter Care Teams Branner Machine Tender Relationship Specialty Start Date End Date Celia Torres MD [address] [place] [address] PCP - General Family Medicine 03/10/12 Danielle Kaufman, SYLVIA [address] [place] [address] Optometry 09/03/18 Larissa Trujillo DDS [address] [place] [address] Resident Dental Trashman 05/23/13 Obdulia Restrepo [address] [place] [address] Compressor Engineer 05/27/23 Dustin Falcon MD [address] [place] [address] [address] [place] [address] Orthopaedic Surgery 04/08/23 Belinda Sears MD [address] [facility] 404 [place] [address] Referring Physician Family Medicine 07/23/23 Dipak Urban MD [address] 3rd [place] [address] Surgeon General Surgery 04/17/23 Hiren Radford MD [address] [place] [address] Manager Background Cardiology 09/03/18 Serjio Christianson MD [address] [place] [address] Vascular 01/26/24 documented as of this encounter
== END 2024-11-24 09:34 | disposition home or self-care (01) ==
LOC: HO.HPSW 09:06
PROVIDERS: PCP Student in an Organized Health Care Education/Training Program; Visit Provider Nurse Practitioner Family
DX: J45.909 Unspecified asthma, uncomplicated (principal); Z90.2 Acquired absence of lung [part of]; R94.2 Abnormal results of pulmonary function studies
CPT/HCPCS: 99214; G2211

== ENCOUNTER → 2024-11-24 09:05 | Outpatient (BNVA) | payer MEDICARE, MEDICAID, SELFPAY | PROVIDERS: PCP Student in an Organized Health Care Education/Training Program; Visit Provider Nurse Practitioner Family | DX: R94.2 Abnormal results of pulmonary function studies (principal); J45.909 Unspecified asthma, uncomplicated; Z80.2 Family history of malignant neoplasm of other respiratory and intrathoracic organs | CPT/HCPCS: 99212 ==

== ENCOUNTER 2024-11-30 07:12 | Outpatient (AMB) | payer MEDICARE, MEDICAID, SELFPAY ==
--- NOTE | 2024-11-30 07:13 | A.OFFVIS_ITS ---
Intake Visit Reasons: 1m follow up/ PSA/Testo Free Intake Note: Patient presents for follow up visit for Erectile Dysfunction Urology Medications: none Blood Thinner: Aspirin Diabetic: yes Steel Wool Machine Operator Required: No Accompanied by: Self / Same As Patient Allergies cinnamon Allergy (Severe, Verified 11/30/24 07:50) Swelling Penicillins Allergy (Mild, Verified 11/30/24 07:50) RASH lisinopril Adverse Reaction (Intermediate, Verified 11/30/24 07:50) Cough cockaroach Allergy (Uncoded 11/30/24 07:50) Unknown Medication List - Last Reconciled 11/30/24 by YESY Marie-KYLIE albuterol sulfate 90 mcg/actuation (Ventolin HFA) 2 puffs inhalation Q4H PRN amlodipine 10 mg PO QAM aspirin 81 mg PO QAM Breo Ellipta 200-25 mcg/dose (fluticasone furoate-vilanterol) 1 inh inhalation DAILY NS cyanocobalamin (vitamin B-12) 1,000 mcg PO QAM empagliflozin (Jardiance) 10 mg PO QAM hydralazine 25 mg PO levofloxacin 750 mg PO DAILY linagliptin (Tradjenta) 5 mg PO QAM losartan 100 mg PO DAILY rosuvastatin 10 mg PO QPM HPI Comments Details: David is a pleasant 59-year-old male patient of Dr. Torres. 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 He is being followed up on today via video telehealth. Of note, patient was seen approximately 6 weeks ago as a new patient for erectile dysfunction. At which time we discussed potential causes and further workup of erectile dysfunction. Recent labs were reviewed with the patient today as noted and trended below: PSA: 10/29 0.5 Testosterone: 10/29 343 Free testosterone: 10/29 50.1 He reports ED has been present for over 2-2 and half years and feels symptoms have progressively worsened. He is able to obtain erection however feels maintaining erections are difficult. He denies any previous trauma. He discusses his longstanding history of cardiac issues and had an extensive 15 hour surgical procedure 2 years ago where he underwent reinsertion of cardiac stent and bypass surgery as well as potential partial nephrectomy of left kidney. He continues to follow-up with Cardiology and pulmonology. He does report noting upon wakening hours he does have bladder pressure. He reports shortly after he urinates this subsides within an hour. He denies urinary urgency, urinary frequency, incontinence, nocturia, hematuria, dysuria, foul smelling urine, changes to urinary stream, flank pain, fever, and or chills. He denies any recreational drug use and or alcohol dependence. We did discussed at length potential causes of ED as well as further treatment options and risks and benefits of these treatment options. All questions were answered. He otherwise offers no other issues or concerns. [facility] Medical History Family history of anesthesia complication Arthritis Vertigo MSSA (methicillin susceptible Staphylococcus aureus) infection Sludge in gallbladder Diabetes HTN (hypertension) Coarctation of aorta Asthma Surgical History History of uvulopalatopharyngoplasty Hx of tonsillectomy Hx of heart surgery Hx of heart surgery Hx of circumcision S/P lobectomy of lung Status post aortic coarctation stent placement Social History Are you a primary field care coordinator to a significant other at home: No Do you presently have visiting nurse or other home services: No Alcohol intake: current Alcohol intake frequency: former alcohol drinker Patient Tobacco Use Status: Former Tobacco user Tobacco use type: Cigarette Cigarette Packs Per Day: 0.5 Years Smoked: 5 Substance Use Type: Marijuana Current occupational status: disabled Current occupation: right hand dominant Review of Systems Eyes Reports no additional complaints ENT Reports no additional complaints Card Reports as per HPI Resp Reports as per HPI GI Reports as per HPI Reports as per HPI Musc Reports as per HPI Neuro Reports as per HPI Psych Reports no additional complaints Endo Reports as per HPI Otto/Lymph Reports no additional complaints Aller/Immun Reports no additional complaints Physical Exam Const General: cooperative, healthy appearing, comfortable, no acute distress, well developed, alert and awake Orientation/consciousness: patient oriented x3 Resp Effort & Inspection: normal respiratory effort and able to speak in complete sentences Neuro General: patient oriented x3 Psych Appearance: well kempt Speech and movement: Clear speech present Affect: normal affect Attitude: cooperative Thought process: Normal thought process present Thought content: Normal thought content present Insight: Fair insight present (Psych) Judgement: Fair judgement present (Psych) Telehealth Telehealth Telehealth Platform: [employer] Location of provider rendering services: practice address Location of patient: address on file Patient Identification confirmed using: Name, : Yes Telehealth method: video Patient verbally consented to treatment: Yes Patient verbally consented to billing insurance company: Yes Patient informed of any privacy concerns related to visit: Yes Minutes spent on Phone/Video with Pt.: 20 Assessment & Plan Assessment & Plan (1) Sensation of pressure in bladder area: Code(s): R39.89 - Other symptoms and signs involving the genitourinary system Category: Medical (2) Erectile dysfunction: Code(s): N52.9 - Male erectile dysfunction, unspecified Category: Medical Plan Recent PSA and testosterone results reviewed with the patient today; as noted above. We did discussed the importance of lifestyle modifications to assist with ED as well as overall health and well-being. Start low-dose Cialis as discussed and prescribed. We also discussed p.r.n. dosing however patient would like to start with initial daily dosing at this time. Will obtain retroperitoneal ultrasound for further assessment evaluation. We did discussed potential near future in office urodynamics and or cystoscopy for further assessment evaluation. Follow-up in 3 months with imaging and PVR; or sooner with any issues, concerns, and or questions. Orders: Orders US retroperitoneal comp Today R39.89 - Other symptoms and signs involving the genitourinary system Medications: New tadalafil (Cialis) [id number] [facility] GroupGDRX Member [id number] 5 mg PO DAILY 90 tabs 1RF 90 days Patient Instructions: The patient had an opportunity to ask questions regarding the treatment plan. All questions were answered. Physical exam, labs, and imaging were discussed and reviewed in detail. As well as risks, benefits, and discussion of treatment choices. No major barriers to understanding were identified. The patient expressed understanding and agreement with the above treatment plan. The patient was made aware they should contact our office by phone for worsening of their current condition, the appearance of new symptoms, or with any questions or concerns. Compliance is encouraged with any medications and follow up testing that is ordered. It is a privilege to be allowed the opportunity to participate in? your urological care.? Again, if you have any questions or concerns If you have any questions or concerns please do not hesitate to contact me. The office is [phone]. This note is constructed using voice recognition software. While every effort has been made to ensure accuracy video camera operator errors may have been included. Yours sincerely, MIGUELINA Marie Coding Level of Care Code Tele Est Pt Level 4 (85024) Diagnoses Sensation of pressure in bladder area R39.89 Erectile dysfunction N52.9
--- OUTSIDE RECORDS SUMMARY | 2024-11-30 07:15 | XMS_ITS | Encounter Summary ---
Author Organization [facility] Address [address] [place] [address] Care Team Providers Care Event Marketing Specialist Name Role Phone Ramon West MD Unavailable [phone] Ramon West MD Primary Care Provider [phone] Reason for Visit * Reason Comments Medication Refill Encounter Details Date Type Department Care Team (Late st Contact Info) Description 10/09/2022 Refill [facility] Cardiothoracic Surgery [address] [address] Kasia Casas PA-C [address] [address] Hypertension, unspecified type Social History [...] type documented in this encounter Care Teams Event Marketing Specialist Relationship Specialty Start Date End Date Ramon West MD [address] [place] [address] PCP - General Surgery, Cardiac 10/09/22 Ramon West MD [address] [address] Surgery, Cardiac 08/26/22 Hiren Radford [address] [place] [address] Payable Representative Cardiovascular Disease 10/02/22 [facility] [address] [place] [address] Primary Care Provider General Medicine 10/02/22 documented as of this encounter
--- OUTSIDE RECORDS SUMMARY | 2024-11-30 07:15 | XMS_ITS | Encounter Summary ---
Author Organization [facility] Address [address] [place] [address] Care Team Providers Care On Call Pharmacy Technician Name Role Phone Ramon West MD Unavailable [phone] Ramon West MD Primary Care Provider Encounter Details Date Type Department Care Team (Late st Contact Info) Description 11/11/2018 Scanned Document [facility] 3 ICU [address] [place] [address] Provider, Generic Social History Tobacco [...] documented as of this encounter Care Teams On Call Pharmacy Technician Relationship Specialty Start Date End Date Ramon West MD [address] [address] PCP - General Surgery, Cardiac 10/09/22 Ramon West MD [address] [address] Surgery, Cardiac 08/26/22 Hiren Radford [address] [place] [address] Ice Skater Cardiovascular Disease 10/02/22 [facility] [address] [place] [address] Primary Care Provider General Medicine 10/02/22 documented as of this encounter
--- OUTSIDE RECORDS SUMMARY | 2024-11-30 07:15 | XMS_ITS | Encounter Summary ---
Author Organization [facility] Address [address] [facility] 7t [place] [address] Care Team Providers Care Bridge Inspector Name Role Phone Celia Torres MD Primary Care Provider [phone] Danielle Kaufman OD Unavailable [phone] Larissa Trujillo DDS Unavailable Unavailabl e Obdulia Restrepo Unavailable [phone] Dustin Falcon MD Unavailable Belinda Sears MD Unavailable [phone] Dipak Urban MD Unavailable Hiren Radford MD Unavailable Encounter Details Date Type Department Care Team (Late st Contact Info) Description 10/14/2022 Orders Only [facility] MEDICINE [address] [place], [place] [phone] Shalonda Srinivasan, PharmD [address] [place], [place] [phone] Social History Tobacco Use Types Packs/Day Years [...] Description 12/07/2024 8:45 AM EDT Office Visit [facility] CHC MED & PEDS [address] [place] [address] Celia Torres MD [address] [place] [address] 12/29/2024 2:00 PM EDT Office Visit [facility] OPTOMETRY [address] [place] [address] Teressa Velazquez OD [address] [place] [address] documented as of this encounter Visit Diagnoses Not on filedocumented in this encounter Additional Health Concerns Assessment Noted Time PHQ-9 Depression Total Score: 1 07/10/19 23 10:12 AM EDT documented as of this encounter Care Teams Bridge Inspector Relationship Specialty Start Date End Date Celia Torres MD [address] [place] [address] PCP - General Family Medicine 03/10/12 Danielle Kaufman, SYLVIA [address] [place] [address] Optometry 09/03/18 Larissa Trujillo DDS [address] [place] [address] Resident Dental Fiberglass Model Maker 05/23/13 Obdulia Restrepo [address] [place] [address] Workers Compensation Consultant 05/27/23 Dustin Falcon MD [address] [place] [address] [address] [place] [address] Orthopaedic Surgery 04/08/23 Belinda Sears MD [facility] [address] [place] [address] Referring Physician Family Medicine 07/23/23 Dipak Urban MD [address] [facility] [address] 3rd [place] [address] Surgeon General Surgery 04/17/23 Hiren Radford MD [address] [place] [address] Education Associate Cardiology 09/03/18 Serjio Christianson MD [address] [place] [address] Vascular 01/26/24 documented as of this encounter
--- OUTSIDE RECORDS SUMMARY | 2024-11-30 07:16 | XMS_ITS | Encounter Summary ---
Author Organization [employer] [facility] Address [address] [facility] [address] [place] [address] Care Team Providers Care Project Reservoir Engineer Name Role Phone Celia Torres MD Primary Care Provider [phone] Danielle Kaufman OD Unavailable [phone] Larissa Trujillo DDS Unavailable Unavailabl e Obdulia Restrepo Unavailable [phone] Dustin Falcon MD Unavailable Belinda Sears MD Unavailable [phone] Dipak Urban MD Unavailable [phone] Hiren Radford MD Unavailable Encounter Details Date Type Department Care Team (Latest Contact Info) Description 10/24/2020 Abstract [facility] CONVERSIONS Dental, Provider, DDS Social History Tobacco Use Types Packs/Day Years [...] Upcoming Encounters Date Type Department Care Team ( st Contact Info) Description 12/07/2024 8:45 AM EDT Office Visit [facility] MED [facility] PEDS [address] [place], [place] [id number] Celia Torres MD [address] [place], [place] [phone] 12/29/2024 2:00 PM EDT Office Visit [facility] OPTOMETRY [address] [place] [address] Teressa Velazquez OD [address] [place] [address] documented as of this encounter Visit Diagnoses Not on filedocumented in this encounter Care Teams Project Reservoir Engineer Relationship Specialty Start Date End Date Celia Torres MD [address] [place] [address] PCP - General Family Medicine 03/10/12 Danielle Kaufman OD [address] [place] [address] Optometry 09/03/18 Larissa Trujillo DDS [address] [place] [address] Resident Dental Online Program Coordinator 05/23/13 Obdulia Restrepo [address] [place] [address] [address] [place] [address] Trim Sawyer 05/27/23 Dustin Falcon MD [address] [place] [address] [address] [place] [address] Orthopaedic Surgery 04/08/23 Belinda Sears MD [address] [facility] [address] [place] [address] Referring Physician Family Medicine 07/23/23 Dipak Urban MD [address] [place] [address] [address] [place] [address] Surgeon General Surgery 04/17/23 Hiren Radford MD [address] [place] [address] Drinking Water Technician Cardiology 09/03/18 Serjio Christianson MD [address] [place] [address] Vascular 01/26/24 documented as of this encounter
--- OUTSIDE RECORDS SUMMARY | 2024-11-30 07:16 | XMS_ITS | Clinical Summary ---
Author Organization [employer] Address [address] [facility] [address] [place] [address] Care Team Providers Care Customer Relations Representative Name Role Phone Celia Torres MD Primary Care Provider Danielle Kaufman OD Unavailable [phone] Larissa Trujillo DDS Unavailable Unavailabl e Obdulia Restrepo Unavailable [phone] Dustin Falcon MD Unavailable Belinda Sears MD Unavailable [phone] Dipak Urban MD Unavailable [phone] Hiren Radford MD Unavailable Allergies Active Allergy Reactions Criticality Noted Date Comments Lisinopril Rash Low 09/03/2022 Penicillins Rash Low 09/03/2022 Medications TRUEplus Lancets 33G miscIndications:Ty pe 2 diabetes mellitus without complications (CMS/HCC) Check sugar BID 60 each 5 05/20/19 23 Active FREESTYLE LITE test stripIndications:T ype 2 diabetes mellitus without complications (CMS/[facility]) TEST BLOOD SUGAR DAILY 50 strip 5 05/20/19 23 Active sodium chloride 0.9% (NS) 0.9 % flush Flush PICC line with 5 ml pre and post use of PICC line and 5 ml pre / 10 ml post lab draws. 09/11/19 23 Active tamsulosin (Flomax) 0.4 MG 24 hr capsule Take 1 capsule by mouth 1 (one) time each day. 09/17/19 23 Active metoprolol succinate XL (Toprol-XL) 200 MG 24 hr tablet Take 1 tablet by mouth once daily 10/10/19 23 Active diphenhydrAMINE (BENADryl) 25 MG capsule Take 1 capsule (25 mg) by mouth if needed at bedtime for itching. 30 capsule 12/11/19 23 Active albuterol 108 (90 Base) MCG/ACT inhaler Inhale 2 puffs every 4 (four) hours if needed for wheezing or shortness of breath. 18 g 1 05/02/19 24 Active Spacer/Aero-Holdin g Chambers (OptiChamber Nikia) misc 1 each every 4 (four) hours if needed (asthma). 1 each 05/02/19 24 Active meclizine (Antivert) 25 MG tablet 1 tab po BID 60 tablet 3 01/23/20 24 Active losartan (Cozaar) 100 MG tablet TAKE ONE TABLET EVERY MORNING 30 tablet 5 04/20/19 25 Active rosuvastatin (Crestor) 10 MG tabletIndications: Hyperlipidemia, unspecified hyperlipidemia type TAKE ONE TABLET EVERY EVENING FOR CHLOESTEROL 90 tablet 3 05/20/19 25 Active amLODIPine (Norvasc) 10 MG tabletIndications: Benign hypertension TAKE ONE TABLET EVERY EVENING FOR BLOOD PRESSURE 30 tablet 5 06/22/19 25 Active cephalexin (Keflex) 500 MG capsule Take 1 capsule by mouth 2 times daily. 06/29/19 25 Active Breo Ellipta 200-25 MCG/ACT aerosol powder inhale 1 puff by mouth daily 12/10/19 24 Active hydrALAZINE (Apresoline) 25 MG tablet 05/27/19 25 Active glipiZIDE (Glucotrol) 10 MG tablet Take 20 mg by mouth. 02/05/20 18 Active Diclofenac Sodium (Voltaren) 1 % gel Use topical BID 100 g 3 07/15/19 25 Active cyanocobalamin (Vitamin B-12) 1000 MCG tabletIndications: Benign hypertension TAKE ONE TABLET EVERY MORNING (VITAMIN) 90 tablet 07/20/19 25 Active azithromycin (Zithromax) 250 MG tablet Take 2 table 1 hour prior dental procedure (2 tabs) 6 tablet 08/10/19 25 Active Jardiance 10 MG TAKE ONE TABLET EVERY MORNING 30 tablet 1 09/28/19 25 Active Tradjenta 5 MG tablet TAKE ONE TABLET EVERY MORNING 30 tablet 1 09/28/19 25 Active aspirin (Aspirin Adult Low Strength) 81 MG EC tabletIndications: Hypertension, unspecified type TAKE ONE TABLET EVERY MORNING FOR BLOOD 90 tablet 10/21/19 Active Active Problems Problem Noted Date Diagnosed Date Arteriosclerosis of coronary artery 10/31/2023 Bandemia 10/31/2023 Benign paroxysmal positional vertigo 10/31/2023 Abdominal pain 10/31/2023 Chest pain 10/31/2023 Class 2 obesity 10/31/2023 Diabetes mellitus 10/31/2023 Former cigarette smoker 10/31/2023 Gastroesophageal reflux disease 10/31/2023 Hemoptysis 10/31/2023 Morbid obesity 10/31/2023 Severe obesity (BMI 35.0-39.9) with comorbidity 10/31/2023 Pneumonia 10/31/2023 Sludge in gallbladder 10/31/2023 Strain of lumbar spine 10/31/2023 Thoracic aortic aneurysm (TAA) 10/31/2023 Hypertension 10/31/2023 HLD (hyperlipidemia) 10/31/2023 Asthma 10/31/2023 Left shoulder pain 07/10/2023 Heart murmur 05/02/2023 Skin scar contracture 03/17/2023 Chronic pain syndrome 02/11/2023 MSSA bacteremia 09/30/2022 Encntr for surgical aftcr following surgery on t he circ sys 09/16/2022 manager long term care (current) use of aspirin 09/16/2022 manager long term care (current) use of oral hypoglycemic chasity gs 09/16/2022 Pneumonia due to methicillin resistant Staphylococcus aureus 09/16/2022 Acquired absence of lung 08/26/2022 Presence of other vascular implants and grafts 0 08/26/2022 Acquired absence of lung (part of) 08/26/2022 Hydropneumothorax 08/24/2022 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 07/09/2022 Coarctation of aorta 07/09/2022 Other sleep apnea 07/09/2022 Benign hypertension 11/09/2012 Hyperlipidemia 11/09/2012 Diabetes mellitus type 2, uncomplicated 11/27/19 12 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 04/07/2000 Thrombocytopenia, unspecified 04/07/2000 Essential (primary) hypertension 04/07/2000 Type 2 diabetes mellitus without complications 0 04/07/2000 Hyperlipidemia, unspecified 04/07/2000 Obstructive sleep apnea (adult) (pediatric) 04/2000 Encounters Date Type Department Care Team Description 11/29/2024 Patient Outreach [facility] MEDICINE [address] [place] [address] Celia Torres MD Pre-visit Planning (Pre visit planning LVM ) 10/27/2024 9:15 AM EDT Office Visit [facility] OPTOMETRY [address] [place] [address] Presbyopia (Primary Dx) 10/20/2024 Refill [facility] MED & PEDS [address] [place] [address] Celia Torres MD Hypertension, unspecified type 10/13/2024 Orders Only GENERIC EXTERNAL DATA DEPARTMENT Provider, Generic External Data 09/30/2024 Orders Only GENERIC EXTERNAL DATA DEPARTMENT Provider, Generic External Data 09/27/2024 9:00 AM EDT Office Visit [facility] OPTOMETRY [address] [place] [address] Teressa Velazquez, OD Optic atrophy of both eyes (Primary Dx); Optic neuropathy, bilateral; Presbyopia; Age-related nuclear cataract of both eyes; Dry eyes, bilateral 09/27/2024 Orders Only GENERIC EXTERNAL DATA DEPARTMENT Provider, Generic External Data 09/27/2024 Travel 09/26/2024 Refill [facility] MED & PEDS [address] [place] [phone] Celia Torres MD 08/31/2024 8:30 AM EDT Office Visit [facility] ADULT DENTAL [address] [place] [address] Larissa Trujillo DDS from Last 3 Months Immunizations Immunization Administration Dates Next Due Influenza injectable quadriv alent IIV4 with preservative 01/04/2016,02/06/2015 Influenza, Split (incl. purified surface antigen ) 02/12/2015 Meningococcal MPSV4 04/27/2014 Moderna Covid-19 Vaccine 12+ 07/17/2020,06/20/19 Pfizer Covid-19 Vaccine 12+ 01/23/2024 Pneumococcal Polysaccharide PPSV23 05/13/2014 Tdap 2017 Zoster, Recombinant 03/03/2019,12/25/2018 Family History Medical History Relation Name Comments Diabetes Father Walter Cancer Mother Silke Diabetes Sister 1 Layla Relation Name Status Comments Father Walter Mother Silke Sister 1 Layla Alive Sister 2 Alive Social History Tobacco Use Types Packs/Day Years Used Date Smoking Tobacco: Never Passive Smoke Exposure: Never Smokeless Tobacco: Never Tobacco Cessation:Counseling Given: Not Answered Alcohol Use Standard Drinks/Week Comments Not Currently [...] not to disclose 2021 10:14 AM EDT Last Filed Vital Signs Vital Sign Reading Time Taken Comments Blood Pressure 130/82 08/31/2024 8:07 AM EDT Pulse 73 08/31/2024 8:07 AM EDT Temperature 36.6 C (97.8 F) 07/14/2024 10:05 AM EDT Respiratory Rate 18 07/14/2024 10:05 AM EDT Oxygen Saturation 97% 01/23/2024 9:50 AM EDT Inhaled Oxygen Concentration - - Weight 101 kg (222 lb) 07/14/2024 10:05 AM EDT Height 167.6 cm (5' 6 ) 07/14/2024 10:05 AM EDT Body Mass Index 35.83 07/14/2024 10:05 AM EDT Plan of Treatment Upcoming Encounters Date Type Department Care Team (Late st Contact Info) Description 12/07/2024 8:45 AM EDT Office Visit [facility] MED & PEDS [address] [place], [place] [phone] Celia Torres MD [address] [place], [place] [phone] 12/29/2024 2:00 PM EDT Office Visit [facility] OPTOMETRY [address] [place], [place] [phone] Teressa Velazquez, OD [address] [place] [address] Health Maintenance Due Date Last Done Comments CT Colonography 1965 Colonoscopy 1965 FIT 1965 FOBT 1965 HIV Screening 1965 Sigmoidoscopy 1965 Disability Screening 1965 Diabetes: Foot Exam 1974 Alcohol/Substance Use Screening 1976 Hepatitis C Screening 1982 Pneumococcal Vaccine: 50+ Years (2 of 2 - PCV) 05/13/2015 05/13/2014 Diabetes: Urine Protein Screening 04/27/2022 04/27/2021, 03/01/2020 Depression Screening 07/10/2023 07/09/2022, 07/10/19 23 RSV Patients and Patients Aged 60 years or older (1 - Risk 60-74 years 1-dose series) 2024 Influenza Vaccine (#1) 2024 6, 02/12/2015, 02/06/2015 Diabetes: Hemoglobin A1C 01/13/2025 025, 07/14/2024, 11/03/2023, Additional history exists Dental Oral Exam 02/10/2025 08/09/2024, 02/11/2024 Dental Prophylaxis 02/10/2025 08/09/2024, 02/11/2024 Dental X-Ray: Bitewings 02/11/2025 02/11/2024 SDOH Screening 07/06/2025 07/06/2024 Lipid Panel 07/22/2025 07/22/2024, 01/05, 07/11/2022, Additional history exists Tobacco Screening 09/27/2025 09/27/2024 Eye Exam 09/27/2026 09/27/2024, 09/06, 09/27/2024, Additional history exists Colorectal Cancer Screening 02/09/2027 FIT DNA/Cologuard 02/09/2027 02/10/2024 Dental X-Ray: Full Mouth 02/11/2027 02/11/2024 DTaP/Tdap/Td Vaccines (2 - Td or Tdap) 06/11/2027 2017 Meningococcal Vaccine Aged Out 04/27/2014 No [email or web address] delmy eligible based on patient's age to complete this topic Zoster Vaccines Completed 03/03/2019, 12/25/2018 COVID-19 Vaccine Completed 01/23/2024, 03/2021, 06/19/2020 HIB Vaccines Aged Out No longer eligi ble based on patient's age to complete this topic HPV Vaccines Aged Out No longer eligi ble based on patient's age to complete this topic Hepatitis A Vaccines Aged Out No long er eligible based on patient's age to complete this topic Hepatitis B Vaccines Aged Out No long er eligible based on patient's age to complete this topic IPV Vaccines Aged Out No longer eligi ble based on patient's age to complete this topic Meningococcal B Vaccine Aged Out No l onger eligible based on patient's age to complete this topic RSV under 20 months Aged Out No longe r eligible based on patient's age to complete this topic Rotavirus Vaccines Aged Out No longer eligible based on patient's age to complete this topic Procedures Procedure Name Priority Date/Time Associated Diagnosis Comments TESTOSTERONE, FREE (DIALYSIS) AND TOTAL,MS Routine 10/13/2024 9:33 AM EDT PSA, TOTAL Routine 10/13/2024 9:33 AM EDT HEMOGLOBIN A1C Routine 10/13/2024 9:33 AM EDT HEMATOXYLIN AND EOSIN STAIN Routine 09/30/2024 9:25 AM EDT GLUCOSE, WHOLE BLOOD Routine 09/30/2024 8:06 AM EDT OCT, OPTIC NERVE - OU - BOTH EYES Routine 09/27/2024 10:44 AM EDT Optic atrophy of both eyes HOMOCYSTEINE Routine 09/27/2024 10:38 AM EDT Optic neuropathy, bilateral UREA NITROGEN (BUN) Routine 09/27/2024 9 :58 AM EDT METHYLMALONIC ACID Routine 09/27/2024 9: 58 AM EDT Optic neuropathy, bilateral VITAMIN B12/FOLATE, SERUM PANEL Routine 09/27/2024 9:58 AM EDT Optic neuropathy, bilateral COMPREHENSIVE METABOLIC PANEL Routine 09/27/2024 9:58 AM EDT Optic neuropathy, bilateral CBC WITH AUTO DIFFERENTIAL Routine 09/27/2024 9:58 AM EDT Optic neuropathy, bilateral 2 O RESIN-BASED COMPOSITE - 1 SURF, POSTERIOR Routine 08/31/2024 8:30 AM EDT 8 MIL RESIN-BASED COMPOSITE - 3 SURF, ANTERIOR Routine 08/31/2024 8:30 AM EDT PROPHYLAXIS - ADULT Routine 08/09/2024 9 :00 AM EDT PERIODIC ORAL EVALUATION - ESTABLISHED PATIENT Routine 08/09/2024 9:00 AM EDT LIPID PANEL, STANDARD Routine 07/22/2024 8:06 AM EDT Type 2 diabetes mellitus without complication, without long-term current use of insulin ([facility]) INTRAORAL - COMPLETE SERIES OF RADIOGRAPHIC IMAGES Routine 02/11/2024 8:00 AM EST LAB COLOGUARD COLON CANCER SCREEN Routine 02/10/2024 6:22 AM EST Encounter for screening for malignant neoplasm of colon ALBUMIN, RANDOM URINE W/CREATININE Routine 04/27/2021 9:00 AM EST from Last 3 Months or Most Recently Relevant to Health Maintenance Results * Testosterone, Free (Dialysis) And Total, MS (10/13/2024 9:33 AM EDT) Testosterone, Total 343 250 - 1100 ng/dL [facility] Comment:For additional infor matsummer, please refer tohttp://education.Openfolio/faq/[email or web address](This link is being provided for informational/educational purposes only.)This test was developed and its analytical performancecharacteristics have been determined by [place] It hasnot been cleared or approved by the U.S. Food and DrugAdministration. This assay has been validated pursuantto the CLIA regulations and is used for clinicalpurposes. Testosterone, Free 50.1 35.0 - 155.0 pg/mL [facility] Comment:This test was develo ped and its analytical performancecharacteristics have been determined by [employer] [place], [place]. It hasnot been cleared or approved by the U.S. Food and DrugAdministration. This assay has been validated pursuantto the CLIA regulations and is used for clinicalpurposes.THIS TEST WAS PERFORMED AT:[employer] [id number] [place] [phone] LAEXIS MD,PHD 10/13/2024 9:33 AM EDT 10/13/2024 9:33 AM EDT us Generic External Data Provider LAB BLOOD ORDERAB LES Final Result [facility] [address] [place] [phone] * PSA,Total (10/13/2024 9:33 AM EDT) Prostate Specific Antigen 0.48 <0.05 - 4.0 ng/mL [facility] Comment:PSA methodology: Abb abel Alicheryl i ChemiluminescentMicroparticle Immunoassay (CMIA) 10/13/2024 9:33 AM EDT 10/13/2024 9:33 AM EDT Generic External Data Provider LAB BLOOD ORDERAB LES Final Result Performing Organization Address [facility] Co de Phone Number [facility] [address] [place] [phone] * (ABNORMAL) Hemoglobin A1c (10/13/2024 9:33 AM EDT) Hemoglobin A1c 8.2(H) <6.0 % [facility] Comment:Hemoglobin A1C Refer ence Range Adults: 4.8 - 6.0 % Non diabetic: < 6.0 % Goal: < 7.0 %Additional Action Suggested: > 8.0 %Note: Hemoglobin A1c results are invalid for patients with abnormal amounts of HbF. Blood transfusions may impact the HbA1c concentration in the patient sample. Estimated Average Glucose 189 mg/dL [facility] Comment:eAG = Estimated ave rage glucose which is %A1C expressed asaverage glucose, using the formula of the Q2W-ZdykxnoXdxowrv Glucose study (ADAG), Diabetes Care, Vol.31,#8,Nov. 2007 10/13/2024 9:33 AM EDT 10/13/2024 9:33 AM EDT Generic External Data Provider LAB BLOOD ORDERAB LES Final Result Performing Organization Address [facility] Co de Phone Number [facility] [address] [place] [phone] * Hematoxylin and Eosin Stain (09/30/2024 9:25 AM EDT) 09/30/2024 9:25 AM EDT 09/30/2024 9:45 AM EDT [facility] - 10/01/2024 1:51 PM EDT ----- ------- Name: David Gurrola Age/Sex: 59/M : 1965 Unit#: [id number] Attend Dr: Maryan Green MD Re09/30/24 Status: [facility] Location: [facility] Disch: ----- ------- SPEC : [id number] RECD: 09/30/24 STATUS: EUGENE SAUNDERS NUM: [id number] RIA: 09/30/[address] [facility] [address]: Maryan Green MD ENTERED: 09/30/24 SP TYPE: Surgical OTHR DR: Celia Torres MD ORDERED: HE Stain/6, Gross Micro L4/2 Diagnosis A. Colon, descending, polypectomy: Tubular adenoma; negative for high-grade dysplasia or carcinoma. B. Rectum, polypectomy: Hyperplastic mucosal polyp. Clinical History Pre-Op Dx: Positive Cologuard, family history Post-Op Dx: Diverticulosis, colon polyps, hemorrhoids Microscopic Description A, B. Microscopic sections reviewed. Material Received A. Descending colon polyp B. Rectal polyp Gross Description Received in two parts. Part A: Received in formalin labeled descending colon polyp is a 0.8 x 0.5 x 0.45 cm velvety, congested and hemorrhagic pedunculated, red-maroon polyp with an attached 0.2 cm in length and 0.4 cm in diameter leahy stalk. The resected base is inked and the specimen is bisected and entirely submitted in a cassette labeled A. Part B: Received in formalin labeled rectal polyp are two leahy-pink papular and rectangular tissue fragments measuring 0.2 and 0.5 cm, submitted in toto in a cassette labeled B. [facility] IHC S/NG Disclaimer NOTE: Unless otherwise stated, all tissue is formalin-fixed and paraffin-embedded. Some or all of the immunohistochemical tests reported herein may have been developed and their performance characteristics determined by [facility]. They have not been cleared or approved by the U.S. Food and Drug Administration (FDA). However, the FDA has determined that such clearance or approval is not necessary. This laboratory is certified under the Clinical Laboratory Improvement Amendments of 1988 (CLIA) as qualified CONTINUED ON NEXT PAGE ----- ------- Name: David Gurrola Age/Sex: 59/M : 1965 Unit#: [id number] Attend Dr: Maryan Green MD Re09/30/24 Status: [facility] Location: [facility] Disch: ----- ------- SPEC : [id number] RECD: 09/30/24 STATUS: EUGENE SAUNDERS NUM: [id number] RIA: 09/30/[address]: Maryan Green MD ENTERED: 09/30/2437 SP TYPE: Surgical OTHR DR: Celia Torres MD ORDERED: HE Stain/6, Gross Micro L4/2 IHC S/NG Disclaimer (Continued) to perform high complexity clinical laboratory testing. Copies To: Celia Torres MD [facility] [address] [place], [place] [phone] Maryan Green MD [facility] [address] [place] [address] [email or web address] ----- ------- Signed (signature on file) Rj Guillen MD 10/01/24 1351 ----- ------- END OF REPORT us Generic External Data Provider LAB BLOOD ORDERAB LES Final Result [facility] [address] [place] [phone] * (ABNORMAL) Glucose, Whole Blood (09/30/2024 8:06 AM EDT) Glucose, Whole Blood 163(H) 60 - 115 mg/dL [facility] Comment:METER #: [id number] 09/30/2024 8:06 AM EDT 09/30/2024 8:09 AM EDT us Generic External Data Provider LAB BLOOD ORDERAB LES Final Result [facility] [address] [place] [address] [phone] * OCT, Optic Nerve - OU - Both Eyes (09/27/2024 10:44 AM EDT) Teressa Doll, OD - 09/27/2024 10:44 AM EDT Images from the original result were not included. OCT OPTIC NERVE INTERPRETATION Reliability : OD: SS 43 - good quality scan OS: SS Measurements RNFL: Avg RNFL thickness OD: 64 microns OS: microns Test findings RNFL: RNFL OD: Thin RNFL superior nasal, nasal and inferior nasal. Baseline. RNFL OS: Thin RNFL nasally. Baseline. Test findings GCL: GCL OD: Thin ganglion cell layer (GCL) inferior temporal. Baseline. GCL OS: Robust ganglion cell layer (GCL) 360. Baseline. Impression and Plan: Optic nerve atrophy both eyes (OU). Lab orders placed for nutritional workup. RTC for baseline visual field (VF) Teressa Velazquez OD OPHTH TOMOGRAPHY Final Result * Homocysteine (09/27/2024 10:38 AM EDT) Homocysteine 8.2 < or = 15.2 umol/L [facility] Comment:Homocysteine is incr eased by functional deficiency offolate or vitamin B12. Testing for methylmalonic aciddifferentiates between these deficiencies. Other causesof increased homocysteine include renal failure, folateantagonists such as methotrexate and phenytoin, andexposure to nitrous oxide.Obdulia Sal, et al., Debora [employer] Med. 1999;131(5):331-9.THIS TEST WAS PERFORMED AT:[address] [place] [phone] MEDELLIN MD Blood Venous blood specimen / Unknown 09/27/2024 10:38 AM EDT 09/27/2024 10:38 AM EDT Teressa Velazquez OD LAB BLOOD ORDERABLES Final Resu lt Performing Organization Address [facility]/ZIP Co de Phone Number [facility] [address] [place] [phone] * (ABNORMAL) Vitamin B12/Folate, Serum Panel (09/27/2024 9:58 AM EDT) Pathologist [facility] Vitamin B12 1,167(H) 200 - 900 pg/mL [facility] Comment:NORMAL 200-900 PG/ML INDETERMINATE 160-199 PG/ML DEFICIENT < 160 PG/ML Folate 14.5 > or = 4.0 ng/mL [facility] Comment:Reference Values:> o r = 4.0 ng/mL< 4.0 ng/mL suggests folate deficiency Methotrexate, aminopterin and folinic acid(leucovorin) are chemotherapeutic agents whose molecularstructures are similar to folate; therefore, the Architectfolate assay cannot be used for patients using these drugs. Blood Venous blood specimen / Unknown 09/27/2024 9:58 AM EDT 09/27/2024 11:22 AM EDT Teressa Velazquez OD LAB BLOOD ORDERABLES Final Resu lt Performing Organization Address [facility] Co de Phone Number [facility] [address] [place] [phone] * (ABNORMAL) CBC auto differential (09/27/2024 9:58 AM EDT) [facility] White Blood Count 6.1 4.8 - 10.8 X10*3/uL [facility] Red Blood Count 5.98(H) 4.60 - 5.80 X10*6/uL [facility] Hemoglobin 16.2 14.0 - 18.0 g/dl [facility] Hematocrit 49.3 42.0 - 52.0 % [facility] Mean Corpuscular Volume 82.4 80.0 - 98.0 fL [facility] Mean Corpuscular Hemoglobin 27.1 27.0 - 33.0 pg [facility] Mean Corpuscular HGB Conc 32.9 31.0 - 36.0 g/dl [facility] Red Cell Distribution Width 13.3 11.0 - 16.0 % [facility] Platelet Count 165 160 - 400 X10*3/uL [facility] Mean Platelet Volume 10.9 9.4 - 12.4 fL [facility] Neutrophils Percent Auto 58.6 45 - 73 % [facility] Imm Gran Pct Auto 0.8(H) 0.0 - 0.4 % [facility] Lymphocytes Percent Auto 30.9 20 - 40 % [facility] Monocytes Percent Auto 6.1 2 - 11 % [facility] Eosinophils Percent Auto 3.3 0 - 4 % [facility] Basophils Percent Auto 0.3 0 - 2 % [facility] NRBC Pct Auto 0.0 0.0 - 0.2 /100WBC [facility] Neutrophils Absolute Auto 3.6 2.0 - 8.3 x10*3/uL [facility] Imm Gran Abs Auto 0.05(H) 0.00 - 0.03 X10*3/uL [facility] Lymphocytes Absolute Auto 1.9 1.2 - 4.9 X10*3/uL [facility] Monocytes Absolute Auto 0.4 0.1 - 1.2 X10*3/uL [facility] Eosinophils Absolute Auto 0.2 0.0 - 0.4 X10*3/uL [facility] Basophils Absolute Auto 0.0 0.0 - 0.2 X10*3/uL [facility] NRBC Abs Auto 0.000 0.0 - 0.012 X10*3/uL [facility] Blood Venous blood specimen / Unknown 09/27/2024 9:58 AM EDT 09/27/2024 11:22 AM EDT us Teressa Velazquez OD LAB BLOOD ORDERABLES Final Resu lt [facility] [address] [place] [phone] * Methylmalonic Acid (09/27/2024 9:58 AM EDT) Methylmalonic Acid 95 69 - 390 nmol/L [facility] Comment: Serum methylmalonic acid (MMA) levels are used todiagnose and monitor several rare inborn errors ofmetabolism, including methylmalonic aciduria. Theenzymatic conversion of MMA to succinic acid requiresvitamin B12 (adenosyl-cobalamin) as a cofactor. SerumMMA levels are also used for assessing functionalvitamin B12 deficiency. Vitamin B12 is essential forfetal neurodevelopment, particularly early inpregnancy. Undiagnosed maternal vitamin B12 deficiencymay be associated with adverse / outcomes,such as neural tube defects and intrauterine growthrestriction.[employer] utilized Multi-Modal Decomposition(MMD) analysis to establish first and second trimester-specific MMA reference intervals in , as givenbelow:MMA, First trimester (<13 wks gestation): 58-167 nmol/LMMA, Second trimester (13-23 wks gestation):63-241 nmol/LThis test was developed and its analytical performancecharacteristics have been determined by [employer]. It has not been cleared or approved by theFDA. This assay has been validated pursuant to the CLIAregulations and is used for clinical purposes.THIS TEST WAS PERFORMED AT:[employer] [place] [address]BAHNYERARIC ALEXIS MD,PHD Blood Venous blood specimen / Unknown 09/27/2024 9:58 AM EDT 09/27/2024 11:22 AM EDT us Teressa Velazquez OD LAB BLOOD ORDERABLES Final Resu lt [facility] [address] [place] [address] [phone] * BUN (Blood Urea Nitrogen) (09/27/2024 9:58 AM EDT) Urea Nitrogen (BUN) 10 9 - 16 mg/dL [facility] 09/27/2024 9:58 AM EDT 09/27/2024 11:12 AM EDT us Generic External Data Provider LAB BLOOD ORDERAB LES Final Result Performing Organization Address City/[facility]/ZIP Co de Phone Number [facility] [address] [place] [address] [phone] * (ABNORMAL) Comprehensive metabolic panel (09/27/2024 9:58 AM EDT) Sodium 138 135 - 145 mmol/L [facility] Potassium 4.2 3.3 - 5.1 mmol/L [facility] Chloride 103 96 - 108 mmol/L [facility] Carbon Dioxide 29 22 - 29 mmol/L [facility] Anion Gap 10(L) 12 - 20 [facility] Urea Nitrogen (BUN) 11 9 - 16 mg/dL [facility] Creatinine, Serum 0.67 0.5 - 1.4 mg/dL [facility] Estimated Glomerular Filt Rate >60 [facility] Comment:Chronic Kidney Disea se: Estimated GFR < 60 mL/min/1.66o9Htbdoq Kidney Disease: Estimated GFR < 15 mL/min/1.73m2 Glucose 243(H) 60 - 115 mg/dL [facility] Calcium 9.2 8.4 - 10.2 mg/dL [facility] Bilirubin, Total 0.7 0.0 - 1.0 mg/dL [facility] Aspartate Amino Transferase 26 5 - 37 U/L [facility] Alanine Aminotransferase 33 0 - 40 U/L [facility] Total Protein 6.9 6.5 - 8.0 g/dL [facility] Albumin Level 4.3 3.5 - 5.0 g/dL [facility] Alkaline Phosphatase 83 39 - 117 U/L [facility] Blood Venous blood specimen / Unknown 09/27/2024 9:58 AM EDT 09/27/2024 11:22 AM EDT us Teressa Velazquez OD LAB BLOOD ORDERABLES Final Resu lt [facility] [address] [place] [address] [phone] * (ABNORMAL) Lipid Panel, Standard (07/22/2024 8:06 AM EDT) Triglycerides 52 <150 mg/dL [facility] Comment:Desirable Triglyceri de: less than 150 mg/dLBorderline High Triglyceride 150-199 mg/dLHigh Triglyceride: 200-499 mg/dLVery High Triglyceride: greater than or equal to 5OO mg/dL Cholesterol 109 <200 mg/dL [facility] Comment:Desirable Cholestero l: less than 200 mg/dLBorderline High Cholesterol: 200-239 mg/dLHigh Cholesterol: greater than 239 mg/dL LDL Cholesterol Calculated 68 <100 mg/dL [facility] Comment:Desirable LDL: less than 100 mg/dLNear Optimal/Above Optimal LDL: 110- 129 mg/dLBorderline High LDL: 130-159 mg/dLHigh LDL: 160-189 mg/dLVery High LDL: greater than or equal to 190 mg/dL HDL Cholesterol 31(L) >40 mg/dL [facility] Comment:Desirable HDL: great er than 40 mg/dL Note: This HDL assay may give artificially low results in patients with liver disease. Blood Venous blood specimen / Unknown 07/22/2024 8:06 AM EDT 07/22/2024 8:06 AM EDT Celia Torres MD LAB BLOOD ORDERABLES Final Resul t [facility] [address] [place] [address] [phone] * (ABNORMAL) Cologuard?? colon cancer screening (02/10/2024 6:22 AM EST) Cologuard Result Positive( A) Negative 02/17/2024 8:49 PM EST [facility] [place] (CLIA #:[id number]) Comment: POSITIVE TEST RESULT. A positive Cologuard result should be followed with a colonoscopy or visual examination of the colon. The normal value (reference range) for this assay is negative. TEST DESCRIPTION: Composite algorithmic analysis of stool DNA-biomarkers with hemoglobin immunoassay. Quantitative values of individual biomarkers are not reportable and are not associated with individual biomarker result reference ranges. Cologuard is intended for colorectal cancer screening of adults of either sex, 45 years or older, who are at average-risk for colorectal cancer (CRC). Cologuard has been approved for use by the U.S. FDA. The performance of Cologuard was established in a cross sectional study of average-risk adults aged 50-84. Cologuard performance in patients ages 45 to 49 years was estimated by sub-group analysis of near-age groups. Colonoscopies performed for a positive result may find as the most clinically significant lesion: colorectal cancer [4.0%], advanced adenoma (including sessile serrated polyps greater than or equal to 1cm diameter) [20%] or non- advanced adenoma [31%]; or no colorectal neoplasia [45%]. These estimates are derived from a prospective cross-sectional screening study of 10,000 individuals at average risk for colorectal cancer who were screened with both Cologuard and colonoscopy. (Rachele Tejeda al, N Engl J Med 2014;370(14):9008-3902.) Cologuard may produce a false negative or false positive result (no colorectal cancer or precancerous polyp present at colonoscopy follow up). A negative Cologuard test result does not guarantee the absence of CRC or advanced adenoma (pre-cancer). The current Cologuard screening interval is every 3 years. ([place] [employer] and U.S. Multi-Society Task Force). Cologuard performance data in a 10,000 patient pivotal study using colonoscopy as the reference method can be accessed at the following location: [email or web address]. Additional description of the Cologuard test process, warnings and precautions can be found at [email or web address]. Stool specimen (specimen) 02/10/2024 6:22 AM EST 02/11/2024 12:14 PM EST us Celia Torres MD LAB MOLECULAR DIAGNOSTICS ORDERA BLEShauna Final Result [facility] (CLIA #:[id number]) [address] [place] [address], * (ABNORMAL) ALBUMIN, RANDOM URINE W/CREATININE (04/27/2021 9:00 AM EST) Microalbumin Urine 1.2 See Note: mg/dL [facility] Comment: Reference Range: Reference Range Not established Microalb/Creat Ratio 41(H) <30 mcg/mg creat [facility] Comment: The ADA defines abnormalities in albumin excretion as follows: Albuminuria Category Result (mcg/mg creatinine) Normal to Mildly increased <30 Moderately increased 30-299 Severely increased > OR = 300 The ADA recommends that at least two of three specimens collected within a 3-6 month period be abnormal before considering a patient to be within a diagnostic category. Creatinine, Urine 29 20 - 320 mg/dL [facility] 04/27/2021 9:00 AM EST us Celia Torres MD LAB URINE ORDERABLES Final Resul t [facility] [address] from Last 3 Months or Most Recently Relevant to Health Maintenance Insurance [facility] STANDARD MEDICARE DENTAL-[facility] MEDICAID STAND ADULT Care Teams Customer Relations Representative Relationship Specialty Start Date End Date Celia Torres MD [address] [place] [address] PCP - General Family Medicine 03/10/12 Danielle Kaufman OD [address] [place] [address] Optometry 09/03/18 Larissa Trujillo DDS [address] [place] [address] Resident Dental Method Consultant 05/23/13 Obdulia Restrepo [address] [place] [address] Dr [address] [place] [address] Grinder Machine Setter 05/27/23 Dustin Falcon MD [address] [place] [address] Dr [address] [place] [address] Orthopaedic Surgery 04/08/23 Belinda Sears MD [address] [facility] [address] [place] [address] Referring Physician Family Medicine 07/23/23 Dipak Urban MD [address] [place] [address] Drive 3rd [place] [address] Surgeon General Surgery 04/17/23 Hiren Radford MD [address] [place] [address] Furniture Finisher Apprentice Cardiology 09/03/18 Serjio Christianson MD [address] [place] [address] Vascular 01/26/24
--- OUTSIDE RECORDS SUMMARY | 2024-11-30 07:17 | XMS_ITS | Encounter Summary ---
Author Organization [employer] Address [address] [place] [address] Care Team Providers Care Screen Printer Name Role Phone Celia Torres MD Primary Care Provider [phone] Danielle Kaufman OD Unavailable [phone] Larissa Trujillo DDS Unavailable Unavailabl e Obdulia Restrepo Unavailable [phone] Dustin Falcon MD Unavailable Belinda Sears MD Unavailable [phone] Dipak Urban MD Unavailable Hiren Radford MD Unavailable [phone] Encounter Details Date Type Department Care Team (Late st Contact Info) Description 04/18/2022 Orders Only [facility] [address] [place] [address] Sherice Lozano LPN Social History Tobacco Use Types Packs/Day Years [...] Description 12/07/2024 8:45 AM EDT Office Visit [facility] [address] [place] [address] Celia Torres MD [address] [facility] [place] [address] 12/29/2024 2:00 PM EDT Office Visit [facility] [address] [place] [address] Teressa Velazquez, OD [address] [place] [address] Pending Results Name Type Priority Associated Diagnoses Date /Time CBC auto differential Lab Routine 10:33 AM EDT documented as of this encounter Procedures Procedure Name Priority Date/Time Associated Diagnosis Comments OVA AND PARASITES, CONC AND PERM SMEAR Routine 08/24/2022 7:59 PM EDT ACID-FAST SMEAR Routine 08/24/2022 6:10 PM EDT PROTHROMBIN TIME-INR Routine 08/24/2022 4:17 PM EDT TYPE AND SCREEN Routine 08/24/2022 4:17 PM EDT GRAM STAIN Routine 08/24/2022 2:43 PM EDT CDIFF GENE PCR Routine 08/24/2022 12:11 PM EDT GASTROINTESTINAL PANEL Routine 12:11 PM EDT BLOOD CULTURE (SECOND) Routine 11:14 AM EDT BLOOD CULTURE (FIRST) Routine 08/24/2022 11:13 AM EDT MAGNESIUM Routine 08/24/2022 11:13 AM EDT LACTIC ACID Routine 08/24/2022 11:13 AM EDT SARS COV2/INFLUENZA A/B AND RSV RNA QL NAAT Routine 08/24/2022 10:43 AM EDT COMPLETE BLOOD COUNT MAN DIF Routine 08/24/2022 10:33 AM EDT CBC WITH AUTO DIFFERENTIAL Routine 08/24/2022 10:33 AM EDT LIPASE Routine 08/24/2022 10:33 AM EDT COMPREHENSIVE METABOLIC PANEL Routine 08/24/2022 10:33 AM EDT COVID-19 ID NOW (SEBASTIAN) Routine 023 12:01 PM EST HIGH SENSITIVITY TROPONIN I Routine 05/15/2022 12:01 PM EST CBC WITH AUTO DIFFERENTIAL Routine 05/15/2022 12:01 PM EST MAGNESIUM Routine 05/15/2022 12:01 PM EST HEPATIC FUNCTION PANEL Routine 12:01 PM EST BASIC METABOLIC PANEL Routine 05/15/2022 12:01 PM EST documented in this encounter Results * Ova and Parasites,??Concentrate and Permanent Smear (08/24/2022 7:59 PM EDT) Ova and Parasite Trichrome SEE NOTE [facility] Comment: OVA AND PARASITES, CONC AND PERM SMEAR Micro Number: [id number] Test Status: Final Specimen Source: Stool Specimen Quality: Adequate CONCENTRATION 1: No ova or parasites seen TRICHROME 1: No ova or parasites seen Routine Ova and Parasite exam may not detect some parasites that occasionally cause diarrheal illness. Cryptosporidium Antigen and/or Cyclospora and Isospora Exam may be ordered to detect these parasites. One negative sample does not necessarily rule out the presence of a parasitic infection. For additional information, please refer to https://education.[employer]/faq/SYL501 (This link is being provided for informational/ educational purposes only.)THIS TEST WAS PERFORMED AT:[employer] [address] [id number] JUDSON,MD 08/24/2022 7:59 PM EDT 08/24/2022 8:24 PM EDT [facility] Ex[facility] nal Provider LAB MICROBIOLOGY - GENERAL ORDERABLES Final Result Performing Organization Address [facility]/ZIP Co de Phone Number [facility] [address] [place] [phone] * Acid-Fast Smear (08/24/2022 6:10 PM EDT) 08/24/2022 6:10 PM EDT 08/24/2022 6:24 PM EDT Comment:Sputum Narrative [facility] - 10/23/2022 2:15 PM EDT Acid-Fast Smear Acid-Fast Smear Acid-Fast Smear No acid-fast bacilli seen. Testing performed at: [address] [address] Acid-Fast Culture null Acid-Fast Culture null Acid-Fast Culture null Acid-Fast Culture null Acid-Fast Culture null Specimen Source: Sputum [facility] Ex[facility] nal Provider LAB MICROBIOLOGY - GENERAL ORDERABLES Final Result Performing Organization Address [facility] Co de Phone Number [facility] [address] [place] [phone] * Type and screen (08/24/2022 4:17 PM EDT) Blood Type OP [facility] Antibody Screen NEGATIVE [facility] 08/24/2022 4:17 PM EDT 08/24/2022 4:27 PM EDT [facility] External Provider LAB BLO OD BANK TEST ORDERABLES Final Result Performing Organization Address [facility] Co de Phone Number [facility] [address] [place] [phone] * (ABNORMAL) Prothrombin Time-INR (08/24/2022 4:17 PM EDT) Prothrombin Time 15.0(H) 10.0 - 13.1 SEC [facility] INTERNATIONAL NORM RATIO 1.3(H) 0.9 - 1.1 [facility] Comment:INTERNATIONAL NORMAL IZED RATIO (INR) REFERENCE RANGES Reference RangeFor patients not on anticoagulant therapy: 0.9 - 1.1INR ranges for oral anticoagulanttherapy:For prevention and treatment of venous thrombosis and pulmonary embolism: 2.0 - 3.0For acute myocardial infarction with aspirin therapy: 2.0 - 3.0For acute myocardial infarction without aspirin therapy: 3.0 - 4.0For patients with mechanical prosthetic heart valves: 2.5 - 3.5 08/24/2022 4:17 PM EDT 08/24/2022 4:25 PM EDT [facility] External Provider LAB BLO OD ORDERABLES Final Result Performing Organization Address City/State/[facility] Co de Phone Number [facility] [address] [place] [phone] * Gram stain (08/24/2022 2:43 PM EDT) 08/24/2022 2:43 PM EDT 08/24/2022 2:45 PM EDT Comment:Sputum Narrative [facility] - 08/27/2022 9:28 AM EDT Gram stain results: 4+ polys 1+ epithelial cells 4+ red blood cells 4+ Gram-positive cocci in chains 3+ Gram-negative rods Sputum Culture BAP Sputum Culture 3+ Mixed respiratory carlo. Methicillin Res Staph Aureus Quant Org ID 3+ Haemophilus parainfluenzae B-Lac Susc (reported) Beta-lactamase not produced; suggests PEN/AMP susceptibility Quant Org ID 4+ Methicillin Res Staph Aureus: Clindamycin <=0.25(S) Methicillin Res Staph Aureus: Erythromycin <=0.25(S) Methicillin Res Staph Aureus: Oxacillin 0.5(R) Methicillin Res Staph Aureus: Penicillin-G >=0.5(R) Methicillin Res Staph Aureus: Tetracycline <=1(S) Methicillin Res Staph Aureus: Trimethoprim/Sulfamethoxazole <=10(S) Methicillin Res Staph Aureus: Vancomycin 1(S) Specimen Source: Sputum [facility] Ex[facility] nal Provider LAB MICROBIOLOGY - GENERAL ORDERABLES Final Result [facility] [address] [place] [address] [phone] * Gastrointestinal panel (08/24/2022 12:11 PM EDT) Campylobacter Not Detected Not Detect. [facility] Plesiomonas shigelloides Not Detected Not Detect. [facility] Salmonella Not Detected Not Detect. [facility] Vibrio Not Detected Not Detect. [facility] Vibrio cholerae Not Detected Not Detect. [facility] YERSINIA ENTEROCOLITICA Not Detected Not Detect. [facility] Enteroaggregative E. coli (EAEC) Not Detected Not Detect. [facility] Enteropathogenic E. coli (EPEC) Not Detected Not Detect. [facility] Enterotoxigenic E. coli (ETEC) lt/st Not Detected Not Detect. [facility] Shiga-like toxin-producing E. coli (STEC) stx1/stx2 Not Detected Not Detect. [facility] E coli O157 Not applicable Not Detect. [facility] Comment:E. coli containing t he O157 antigen are a subset ofShiga-like toxin- producing E. coli (STEC). Shigella/Enteroinvasive E. coli (EIEC) Not Detected Not Detect. [facility] Cryptosporidium Not Detected Not Detect. [facility] Cyclospora cayetanensis Not Detected Not Detect. [facility] Entamoeba histolytica Not Detected Not Detect. [facility] Giardia lamblia Not Detected Not Detect. [facility] Adenovirus F 40/41 Not Detected Not Detect. [facility] Astrovirus Not Detected Not Detect. [facility] Norovirus GI/GII Not Detected Not Detect. [facility] Rotavirus A Not Detected Not Detect. [facility] Sapovirus Not Detected Not Detect. [facility] Comment: All results must be correlated with clinical findings.Negative results do not exclude the possibility ofgastrointestinal infection and should not be used as thesole basis for diagnosis, treatment, or other managementdecisions. Virus, bacteria, and parasite nucleic acid maypersist in vivo independently of organism viability.Additionally, some organisms may be carried symptomatically.Detection of organism targets does not imply that thecorresponding organisms are infectious or are the causativeagents for clinical symptoms. There is a risk of falsenegative values due to the presence of sequence variants inthe gene targets of the assay, amplification inhibitors inspecimens, or inadequate numbers of organisms foramplification.The identification of several diarrheagenic E. colipathotypes has historically relied upon phenotypiccharacteristics. This panel targets genetic determinantscharacteristic of most pathogenic strains, but may notdetect all strains having phenotypic characteristics of apathotype.The performance of this test has not been established formonitoring treatment of infection with any of the panelorganisms.This assay is performed by Multiplexed PCR, utilizing [employer]. 08/24/2022 12:1 1 PM EDT 08/24/2022 12:15 PM EDT [facility] MICROBIOLOGY - GENERAL ORDERABLES Final Result Performing Organization Address [facility] de Phone Number [facility] [address] [place] [phone] * CDiff Gene PCR (08/24/2022 12:11 PM EDT) CDiff Gene PCR NEGATIVE Negative [facility] Comment:If C. difficile stro ngly suspected despite one negativetest, a second test may be sent vs. empiric treatment forC. difficile infection. 08/24/2022 12:1 1 PM EDT 08/24/2022 12:15 PM EDT [facility] Provider LAB BODY FLUIDS AND STOOLS ORDERABLES Final Result Performing Organization Address [facility] Co de Phone Number [facility] [address] [place] [phone] * Blood Culture (Second) (08/24/2022 11:14 AM EDT) 08/24/2022 11:1 4 AM EDT 08/24/2022 11:20 AM EDT Comment:Blood Narrative [facility] - 08/26/2022 8:15 AM EDT Blood Culture (Second) null Blood Culture (Second) null Blood Culture (Second) null Blood Culture (Second) null Blood Culture (Second) null Blood Culture (Second) null Blood Culture (Second) null Blood Culture (Second) null Blood Culture (Second) null Blood Culture (Second) BC Positive/Drawn Blood Culture (Second) 2 sets positive/2 sets drawn Blood Culture (Second) GS - on external report Blood Culture (Second) Gram-positive cocci Blood Culture (Second) Review Comment Blood Culture (Second) Gram stain reviewed by a [employer] Staphylococcus aureus Refer [facility] ORG #1: Susceptibility testing of same organism(s) from Refer [facility] similar site will not be repeated within 4 days. Results of Blood Culture gram stain called to and read back by EMILEE at 4 on 08/24/22 by RADHA. Specimen Source: Blood [facility] Provider LAB MICROBIOLOGY - GENERAL ORDERABLES Final Result [facility] [address] [place] [address] [phone] * Blood Culture (First) (08/24/2022 11:13 AM EDT) 08/24/2022 11:1 3 AM EDT 08/24/2022 11:17 AM EDT Comment:Blood Narrative [facility] - 08/26/2022 8:14 AM EDT Blood Culture (First) null Blood Culture (First) null Blood Culture (First) null Blood Culture (First) null Blood Culture (First) null Blood Culture (First) null Blood Culture (First) null Blood Culture (First) null Blood Culture (First) null Blood Culture (First) BC Positive/Drawn Blood Culture (First) 2 sets positive/2 sets drawn Blood Culture (First) GS - on external report Blood Culture (First) Gram-positive cocci Blood Culture (First) Review Comment Blood Culture (First) Gram stain reviewed by a [employer] Staphylococcus aureus Results of Blood Culture gram stain called to and read back by EMILEE at 2118 on 08/24/22 by RADHA. Staphylococcus aureus: Clindamycin <=0.25(S) Staphylococcus aureus: Erythromycin <=0.25(S) Staphylococcus aureus: Levofloxacin <=0.12(S) Staphylococcus aureus: Oxacillin 0.5(S) Staphylococcus aureus: Penicillin-G >=0.5(R) Staphylococcus aureus: Tetracycline <=1(S) Staphylococcus aureus: Trimethoprim/Sulfamethoxazole <=10(S) Specimen Source: Blood [facility] Ex[facility] nal Provider LAB MICROBIOLOGY - GENERAL ORDERABLES Final Result Performing Organization Address [facility] de Phone Number [facility] [address] [place] [phone] * Magnesium (08/24/2022 11:13 AM EDT) Magnesium 1.6 1.6 - 2.6 mg/dL [facility] 08/24/2022 11:1 3 AM EDT 08/24/2022 11:17 AM EDT [facility] External Provider LAB BLO OD ORDERABLES Final Result Performing Organization Address [facility] de Phone Number [facility] [address] [place] [phone] * Lactic Acid (08/24/2022 11:13 AM EDT) Lactic Acid 1.8 0.5 - 2.0 mmol/L [facility] 08/24/2022 11:1 3 AM EDT 08/24/2022 11:17 AM EDT [facility] External Provider LAB BLO OD ORDERABLES Final Result Performing Organization Address [facility]/ZIP Co de Phone Number [facility] [address] [place] [phone] * SARS-CoV-2 RNA, Influenza A/B, and RSV RNA, Ql NAAT (08/24/2022 10:43 AM EDT) Influenza A PCR NEGATIVE Negative [facility] Influenza B PCR NEGATIVE Negative [facility] Resp Syncy Virus RNA Qual PCR NEGATIVE Negative [facility] SARS COV2 PCR NEGATIVE Negative [facility] Comment:All test results mus t be correlated with clinical findings.Negative results do not preclude SARS-CoV2, influenza Avirus, influenza B virus and/or RSV infectionand should not be used as the sole basis for treatment orother patient management decisions. Negative results must becombined with clinical observations, patient history, andepidemiological information.This test has not been evaluated for monitoring treatment ofinfection.This test has been authorized by the FDA under an EmergencyUse Authorization (EUA) for use by authorized laboratories.Testing performed on the [employer] GeneXpert utilizingreal-time RT-PCR.All SARS CoV2 and positive influenza A/B results arereported to [facility]. 08/24/2022 10:4 3 AM EDT 08/24/2022 10:46 AM EDT [facility] Ex[facility]al Provider LAB MICROBIOLOGY - GENERAL ORDERABLES Final Result Performing Organization Address [facility] Co de Phone Number [facility] [address] [place] [phone] * Lipase (08/24/2022 10:33 AM EDT) Lipase 26 8 - 78 U/L [facility] 08/24/2022 10:3 3 AM EDT 08/24/2022 10:38 AM EDT [facility] External Provider LAB BLO OD ORDERABLES Final Result Performing Organization Address [facility]/ZIP Co de Phone Number [facility] [address] [place] [phone] [phone] * (ABNORMAL) Comprehensive Metabolic Panel (08/24/2022 10:33 AM EDT) Sodium 138 135 - 145 mmol/L [facility] Potassium 3.6 3.3 - 5.1 mmol/L [facility] Chloride 104 96 - 108 mmol/L [facility] Carbon Dioxide 23 22 - 29 mmol/L [facility] Anion Gap 15 12 - 20 [facility] Urea Nitrogen (BUN) 13 9 - 16 mg/dL [facility] Creatinine, Serum 1.33 0.5 - 1.4 mg/dL [facility] Creatinine Clr Calc Pharmacy 67.2 [facility] Comment:eGFR (calculated fro m the MDRD study equation) and eCrCl(calculated from the Cockcroft-Gault equation) are based ondifferent parameters and may not yield comparable results.If eCrCl result is absurd, please check patient'sheight/weight. Estimated Glomerular Filt Rate 55 [facility] Comment:NOTE: For -Am erican individuals, multiply the result by 1.210.Chronic Kidney Disease: Estimated GFR < 60 mL/min/1.07j8Tsyqel Kidney Disease: Estimated GFR < 15 mL/min/1.73m2 Glucose 264(H) 60 - 115 mg/dL [facility] Calcium 9.5 8.4 - 10.2 mg/dL [facility] Bilirubin, Total 0.8 0.0 - 1.0 mg/dL [facility] Aspartate Amino Transferase 32 5 - 37 U/L [facility] Alanine Aminotransferase 27 0 - 40 U/L [facility] Total Protein 6.5 6.5 - 8.0 g/dL [facility] Albumin Level 3.9 3.5 - 5.0 g/dL [facility] Alkaline Phosphatase 68 39 - 117 U/L [facility] 08/24/2022 10:3 3 AM EDT 08/24/2022 10:38 AM EDT us [facility] External Provider LAB BLO OD ORDERABLES Final Result [facility] [address] [place] [phone] * (ABNORMAL) Complete Blood Count Manual Diff (08/24/2022 10:33 AM EDT) White Blood Count 9.4 4.8 - 10.8 X10*3/uL [facility] Red Blood Count 5.40 4.60 - 5.80 X10*6/uL [facility] Hemoglobin 15.7 14.0 - 18.0 g/dl [facility] Hematocrit 46.5 42.0 - 52.0 % [facility] Mean Corpuscular Volume 86.1 80.0 - 98.0 fL [facility] Mean Corpuscular Hemoglobin 29.1 27.0 - 33.0 pg [facility] Mean Corpuscular HGB Conc 33.8 31.0 - 36.0 g/dl [facility] Red Cell Distribution Width 12.7 11.0 - 16.0 % [facility] Platelet Count 130(L) 160 - 400 X10*3/uL [facility] Mean Platelet Volume 11.2 9.4 - 12.4 fL [facility] NRBC Pct Auto 0.0 0.0 - 0.2 /100WBC [facility] NRBC Abs Auto 0.000 0.0 - 0.012 X10*3/uL [facility] Neutrophils % Manual 57 45 - 73 % [facility] Band Neutrophils Percent 30(H) 3 - 5 % [facility] Comment:Results of BANDS ousmane led to ILENE on 08/24/22at 1115 by MARLON. Lymphocytes Percent Manual 7(L) 20 - 40 % [facility] Monocytes Percent Manual 6 2 - 11 % [facility] NEUTROPHILS ABSOLUTE MANUAL 8.2 2.0 - 8.3 X10*3/uL [facility] LYMPHOCYTES ABSOLUTE MANUAL 0.7(L) 1.2 - 4.9 X10*3/uL [facility] MONOCYTES ABSOLUTE MANUAL 0.6 0.1 - 1.2 X10*3/uL [facility] Platelet Estimate DECREASED NORMAL [facility] Large Platelet PRESENT [facility] Platelet Morphology Comment NOTED [facility] RBC Morphology NORMAL [facility] Toxic Vacuolation PRESENT [facility] Dohle Bodies PRESENT [facility] 08/24/2022 10:3 3 AM EDT 08/24/2022 10:38 AM EDT [facility] External Provider LAB BLO OD ORDERABLES Final Result Performing Organization Address [facility] Co de Phone Number [facility] [address] [place] [address] [phone] * HIGH SENSITIVITY TROPONIN I (05/15/2022 12:01 PM EST) [facility] TROPONIN I HIGH SENSITIVITY 3.5 <3.5 - 35.0 ng/L [facility] Comment:The Sebastian high sens itivity Troponin-I results should beused in conjunction with other diagnostic information suchas ECG, clinical observations and information, and patientsymptoms to aid in the diagnosis of NC. 05/15/2022 12:0 1 PM EST 05/15/2022 12:04 PM EST [facility] External Provider LAB BLO OD ORDERABLES Final Result Performing Organization Address [facility] Co de Phone Number [facility] [address] [place] [address] [phone] * COVID-19 ID NOW (SEBASTIAN) (05/15/2022 12:01 PM EST) Pathologist [facility] IDNOW SERIAL# [id number] [facility] COVID-19 TEST Negative Negative [facility] COVID-19 NOTE See Note [facility] Comment: Results are for the identification of SARS-CoV2 RNA. TheSARS-CoV2 RNA is generally detectable in respiratory samplesduring the acute phase of infection. Positive results areindicative of the presence of SARS-CoV-2 RNA; clinicalcorrelation with patient history and other diagnosticinformation is necessary to determine patient infectionstatus. Positive results do not rule out bacterial infectionor co- infection with other viruses.Testing facilities within the [facility] and [facility] are required to report all positive results tothe appropriate public health authorities.Negative results should be treated as presumptive and, ifinconsistent with clinical signs and symptoms or necessaryfor patient management, should be tested with differentauthorized or cleared molecular tests. Negative results donot preclude SARS-CoV2 RNA infection and should not be usedas the sole basis for patient management decisions. Negativeresults should be considered in the context of a patient'srecent exposures, history and the presence of clinical signsand symptoms consistent with COVID-19.This test has been authorized by the FDA under an EmergencyUse Authorization (EUA) for use by authorized laboratories.Testing performed on the [employer] NOW utilizing NAAT. 05/15/2022 12:0 1 PM EST 05/15/2022 12:04 PM EST [facility] Exter nal Provider LAB MOLECULAR DIAGNOSTICS ORDERABLES Final Result Performing Organization Address [facility]/ZIP Co de Phone Number [facility] [address] [place] [phone] * Magnesium (05/15/2022 12:01 PM EST) Magnesium 2.0 1.6 - 2.6 mg/dL [facility] 05/15/2022 12:0 1 PM EST 05/15/2022 12:04 PM EST [facility] External Provider LAB BLO OD ORDERABLES Final Result Performing Organization Address [facility] Co de Phone Number [facility] [address] [place] [phone] * (ABNORMAL) Basic Metabolic Panel (05/15/2022 12:01 PM EST) Sodium 143 135 - 145 mmol/L [facility] Potassium 4.5 3.3 - 5.1 mmol/L [facility] Chloride 103 96 - 108 mmol/L [facility] Carbon Dioxide 27 22 - 29 mmol/L [facility] Anion Gap 18 12 - 20 [facility] Urea Nitrogen (BUN) 14 9 - 16 mg/dL [facility] Creatinine, Serum 0.90 0.5 - 1.4 mg/dL [facility] Creatinine Clr Calc Pharmacy 104.5 [facility] Comment:eGFR (calculated fro m the MDRD study equation) and eCrCl(calculated from the Cockcroft-Gault equation) are based ondifferent parameters and may not yield comparable results.If eCrCl result is absurd, please check patient'sheight/weight. Estimated Glomerular Filt Rate >60 [facility] Comment:NOTE: For -Am erican individuals, multiply the result by 1.210.Chronic Kidney Disease: Estimated GFR < 60 mL/min/1.26r4Frrsne Kidney Disease: Estimated GFR < 15 mL/min/1.73m2 Glucose 183(H) 60 - 115 mg/dL [facility] Calcium 9.8 8.4 - 10.2 mg/dL [facility] 05/15/2022 12:0 1 PM EST 05/15/2022 12:04 PM EST us [facility] External Provider LAB BLO OD ORDERABLES Final Result [facility] [address] [place], [place] [phone] * (ABNORMAL) Hepatic Function Panel (05/15/2022 12:01 PM EST) Bilirubin, Total 0.5 0.0 - 1.0 mg/dL [facility] Bilirubin, Direct <0.2 0.0 - 0.5 mg/dL [facility] Aspartate Amino Transferase 50(H) 5 - 37 U/L [facility] Alanine Aminotransferase 59(H) 0 - 40 U/L [facility] Total Protein 6.9 6.5 - 8.0 g/dL [facility] Albumin Level 4.4 3.5 - 5.0 g/dL [facility] Alkaline Phosphatase 109 39 - 117 U/L [facility] 05/15/2022 12:0 1 PM EST 05/15/2022 12:04 PM EST us [facility] External Provider LAB BLO OD ORDERABLES Final Result [facility] [address] [place] [address] [phone] * (ABNORMAL) CBC auto differential (05/15/2022 12:01 PM EST) White Blood Count 8.0 4.8 - 10.8 X10*3/uL [facility] Red Blood Count 5.59 4.60 - 5.80 X10*6/uL [facility] Hemoglobin 16.2 14.0 - 18.0 g/dl [facility] Hematocrit 48.8 42.0 - 52.0 % [facility] Mean Corpuscular Volume 87.3 80.0 - 98.0 fL [facility] Mean Corpuscular Hemoglobin 29.0 27.0 - 33.0 pg [facility] Mean Corpuscular HGB Conc 33.2 31.0 - 36.0 g/dl [facility] Red Cell Distribution Width 13.0 11.0 - 16.0 % [facility] Platelet Count 202 160 - 400 X10*3/uL [facility] Mean Platelet Volume 11.1 9.4 - 12.4 fL [facility] Neutrophils Percent Auto 68.0 45 - 73 % [facility] Imm Gran Pct Auto 0.6(H) 0.0 - 0.4 % [facility] Lymphocytes Percent Auto 23.6 20 - 40 % [facility] Monocytes Percent Auto 6.5 2 - 11 % [facility] Eosinophils Percent Auto 1.0 0 - 4 % [facility] Basophils Percent Auto 0.3 0 - 2 % [facility] NRBC Pct Auto 0.0 0.0 - 0.2 /100WBC [facility] Neutrophils Absolute Auto 5.4 2.0 - 8.3 x10*3/uL [facility] Imm Gran Abs Auto 0.05(H) 0.00 - 0.03 X10*3/uL [facility] Lymphocytes Absolute Auto 1.9 1.2 - 4.9 X10*3/uL [facility] Monocytes Absolute Auto 0.5 0.1 - 1.2 X10*3/uL [facility] Eosinophils Absolute Auto 0.1 0.0 - 0.4 X10*3/uL [facility] Basophils Absolute Auto 0.0 0.0 - 0.2 X10*3/uL [facility] NRBC Abs Auto 0.000 0.0 - 0.012 X10*3/uL [facility] 05/15/2022 12:0 1 PM EST 05/15/2022 12:04 PM EST us [facility] External Provider LAB BLO OD ORDERABLES Final Result [facility] [address] [place] [address] [phone] documented in this encounter Visit Diagnoses Not on filedocumented in this encounter Care Teams Screen Printer Relationship Specialty Start Date End Date Celia Torres MD [address] [place] [address] PCP - General Family Medicine 03/10/12 Danielle Kaufman OD [address] [place] [address] Optometry 09/03/18 Larissa Trujillo DDS [address] [place] [address] Resident Dental Shearing Shed Hand 05/23/13 Obdulia Restrepo [address] [place] [address] Life Science Research Assistant 05/27/23 Dustin Falcon MD [address] [place] [address] [address] [place] [address] Orthopaedic Surgery 04/08/23 Belinda Sears MD [address] [facility] [address] [place] [address] Referring Physician Family Medicine 07/23/23 Dipak Urban MD [address] 3rd [place] [address] Surgeon General Surgery 04/17/23 Hiren Radford MD [address] [place] [address] Vp Analysis Cardiology 09/03/18 Serjio Christianson MD [address] [place] [address] Vascular 01/26/24 documented as of this encounter
--- OUTSIDE RECORDS SUMMARY | 2024-11-30 07:17 | XMS_ITS | Encounter Summary ---
Author Organization [employer] Address [address] [facility] 7t [place] [address] Care Team Providers Care Certified Prosthetist/Orthotist Name Role Phone Celia Torres MD Primary Care Provider Danielle Kaufman OD Unavailable [phone] Larissa Trujillo DDS Unavailable Unavailabl e Obdulia Restrepo Unavailable [phone] Dustin Falcon MD Unavailable Belinda Sears MD Unavailable [phone] Dipak Urban MD Unavailable [phone] Hiren Radford MD Unavailable [phone] Reason for Visit * Reason Onset Date Comments Med Refill 11/11/2022 Encounter Details Date Type Department Care Team (Late st Contact Info) Description 11/11/2022 Telephone [facility] CHC MED & PEDS [address] [place], [place] [phone] Celia Torres MD [address] [place] [address] Med Refill Social History Tobacco Use Types Packs/Day Years [...] AM EDT documented as of this encounter Miscellaneous Notes * Telephone Encounter - Helene Benavidez - 11/11/2022 2:54 PM EDT Tc from pt requesting med refill on traMADol (Ultram) 50 MG tablet Please sent to [id number] - [place] - [address] [facility] [address] documented in this encounter Plan of Treatment Upcoming Encounters Date Type Department Care Team (Late st Contact Info) Description 12/07/2024 8:45 AM EDT Office Visit [facility] CHC MED & PEDS [address] [place], [place] [phone] Celia Torres MD [address] [place] [address] 12/29/2024 2:00 PM EDT Office Visit [facility] OPTOMETRY [address] [place] [address] Teressa Velazquez OD [address] [place] [address] documented as of this encounter Visit Diagnoses Not on filedocumented in this encounter Additional Health Concerns Assessment Noted Time PHQ-9 Depression Total Score: 1 07/10/19 23 10:12 AM EDT documented as of this encounter Care Teams Certified Prosthetist/Orthotist Relationship Specialty Start Date End Date Celia Torres MD [address] [place] [address] PCP - General Family Medicine 03/10/12 Danielle Kaufman OD [address] [place] [address] Optometry 09/03/18 Larissa Trujillo DDS [address] [place] [address] Resident Dental Restorative Rehab Aide 05/23/13 Obdulia Restrepo [address] [place] [address] Market Relationship Manager 05/27/23 Dustin Falcon MD [address] [place] [address] [address] [place] [address] Orthopaedic Surgery 04/08/23 Belinda Sears MD [address] [facility] [address] [place] [address] Referring Physician Family Medicine 07/23/23 Dipak Urban MD [address] [place] [address] 3rd [place] [address] Surgeon General Surgery 04/17/23 Hiren Radford MD [address] [place] [address] Crusher Tender Cardiology 09/03/18 Serjio Christianson MD [address] [place] [address] Vascular 01/26/24 documented as of this encounter
--- OUTSIDE RECORDS SUMMARY | 2024-11-30 07:17 | XMS_ITS | Encounter Summary ---
Author Organization [employer] Address [address] [facility] 7t [place] [address] Care Team Providers Care Production Maintenance Mechanic Name Role Phone Celia Torres MD Primary Care Provider Danielle Kaufman OD Unavailable [phone] Larissa Trujillo DDS Unavailable Unavailabl e Obdulia Restrepo Unavailable [phone] Dustin Falcon MD Unavailable Belinda Sears MD Unavailable [phone] Dipak Urban MD Unavailable Hiren Radford MD Unavailable Reason for Visit * Reason Onset Date Comments triage 05/15/2022 Encounter Details Date Type Department Care Team (Late st Contact Info) Description 05/15/2022 Telephone [facility] [address] [place] [address] Celia Torres MD [address] [place], [place] [phone] triage Social History Tobacco Use Types Packs/Day Years Used Date Smoking Tobacco: Never Assessed Sex and Gender Information Value Date Recorded Sex Assigned at Male 02/04/2022 10:14 AM EDT Legal Sex Male 10:14 AM EDT Gender Identity Male 02/04/2022 10:14 AM EDT Sexual Orientation Choose not to disclose 2021 10:14 AM EDT documented as of this encounter Miscellaneous Notes * Telephone Encounter - Kimmy Oliva LPN - 05/15/2022 10:27 AM EST Triage call returned to patient who does not need cut roll machine offbearer. Patient reports that he is having a severe headache with associated dizziness for 4 days. Patient has had headaches in the past but nonethat last this long. Patient reports history of concussion and that eyes feel like they are jumping not seeing double vision. No vomiting at time of call but persistent nausea. Disposition reviewedand patient in agreement. Unsafe to drive self and will access emergent care at [facility] ED now. Reviewed with pt to contact PCP office after ER evaluation for follow up appt. Pt verbalized understanding and agrees. Team updated with patient status. Protocol Used: Headache (Adult) Protocol-Based Disposition: Callback or Video Visit by PCP within 1 Hour Override (Final) Disposition: Go to ED/C Now (or to Office with PCP Approval) Override Reason: Transportation not available Override Notes: Day 4 of headache with eye disturbance. Previous concussions per patient. Video visit not offered Positive Triage Question: * Severe headache (e.g., excruciating) and has had severe headaches before * All higher-acuity triage questions were negative Care Advice Discussed: * Pain Medicines * Rest * Apply Cold to the Area * Reasons To Call Back - You become worse * Telephone Encounter - Oscar Bledsoe - 05/15/2022 10:14 AM EST Symptoms: Dizziness, Headache, Nausea But No Vomiting Outcome: Schedule an urgent appointment (within 4 hours) or talk to a nurse or provider soon Reason: Getting worse The caller accepted this outcome documented in this encounter Plan of Treatment Upcoming Encounters Date Type Department Care Team ([facility] st Contact Info) Description 12/07/2024 8:45 AM EDT Office Visit [facility] CH[facility] MED & PEDS 505 [facility] [place] [address] Celia Torres MD [address] [place] [address] 12/29/2024 2:00 PM EDT Office Visit [facility] OPTOMETRY [address] [place] [address] Teressa Velazquez, OD [address] [place] [address] documented as of this encounter Visit Diagnoses Not on filedocumented in this encounter Care Teams Production Maintenance Mechanic Relationship Specialty Start Date End Date Celia Torres MD [address] [place] [address] PCP - General Family Medicine 03/10/12 Danielle Kaufman OD [address] [place] [address] Optometry 09/03/18 Larissa Trujillo DDS [address] [place] [address] Resident Dental Drywall Taper 05/23/13 Obdulia Restrepo [address] [place] [address] [address] [place] [address] Geosciences Professor 05/27/23 Dustin Falcon MD [address] [place] [address] [address] [place] [address] Orthopaedic Surgery 04/08/23 Belinda Sears MD [address] [facility] [address] [place] [address] Referring Physician Family Medicine 07/23/23 Dipak Urban MD [address] [place] [address] Drive 3rd [place] [address] Surgeon General Surgery 04/17/23 Hiren Radford MD [address] [place] [address] Manager Wound Cardiology 09/03/18 Serjio Christianson MD [address] [place] [address] Vascular 01/26/24 documented as of this encounter
--- OUTSIDE RECORDS SUMMARY | 2024-11-30 07:18 | XMS_ITS | Encounter Summary ---
Author Organization [employer] Address [address] [facility] 7t [place] [address] Care Team Providers Care Elementary School Librarian Name Role Phone Celia Torres MD Primary Care Provider [phone] Danielle Kaufman OD Unavailable [phone] Larissa Trujillo DDS Unavailable Unavailabl e Obdulia Restrepo Unavailable [phone] Dustin Falcon MD Unavailable Belinda Sears MD Unavailable [phone] Dipak Urban MD Unavailable [phone] Hiren Radford MD Unavailable Reason for Visit * Reason Comments Med Refill Encounter Details Date Type Department Care Team (Late st Contact Info) Description 02/10/2023 Refill [facility] CHC MED & PEDS [address] [place], [place] [phone] Celia Torres MD [address] [place], [place] [phone] Chronic pain syndrome (Primary Dx) Social History Tobacco Use Types Packs/Day Years Used Date Smoking Tobacco: Never Passive Smoke Exposure: Never Smokeless Tobacco: Never Alcohol Use Standard Drinks/Week Comments Not Currently 0 (1 standard drink = 0.6 oz pur e alcohol) Depression Answer Date Recorded Patient Health Questionnaire-9 Score 1 07/09/2022 Housing Stability Answer Date Recorded What is your housing situation today? I have fany ayala 01/20/[address] you li ve. Do you have problems with any of the following? None of the above 01/20/2023 Food Insecurity Answer Date Recorded Within the past 12 months, y ou worried that your food would run out before you got money to buy more: Never True 01/20/2023 Within the past 12 months,th e food you bought just didn't last and you didn't have enough money to get more: Never True Transportation Answer Date Recorded In the past 12 months, has l ack of transportation kept you from medical appts, meetings, work or from getting things needed for daily living? No 01/20/2023 Utilities Answer Date Recorded In the past 12 months, has t he electric, gas, oil or water company threatened to shut off services in your home? No 01/20/2023 Depression Answer Date Recorded Patient Health Questionnaire-2 [...] Description 12/07/2024 8:45 AM EDT Office Visit [facility] CHC MED & PEDS [address] [place] [address] Celia Torres MD 505 [place] [address] 12/29/2024 2:00 PM EDT Office Visit [facility] OPTOMETRY [address] [place] [address] Teressa Velazquez, OD [address] [place] [address] documented as of this encounter Visit Diagnoses Diagnosis Chronic pain syndrome- Primary documented in this encounter Additional Health Concerns Assessment Noted Time PHQ-9 Depression Total Score: 1 07/10/19 23 10:12 AM EDT documented as of this encounter Care Teams Elementary School Librarian Relationship Specialty Start Date End Date Celia Torres MD [address] [place] [address] PCP - General Family Medicine 03/10/12 Danielle Kaufman OD [address] [place] [address] Optometry 09/03/18 Larissa Trujillo DDS [address] [place] [address] Resident Dental Jackscrew Man 05/23/13 Obdulia Restrepo [address] [place] [address] [address] [place] [address] Chaplain Resident 05/27/23 Dustin Falcon MD [address] [place] [address] [address] [place] [address] Orthopaedic Surgery 04/08/23 Belinda Sears MD [address] [facility] 404 [place] [address] Referring Physician Family Medicine 07/23/23 Dipak Urban MD [address] [place] [address] Drive 3rd [place] [address] Surgeon General Surgery 04/17/23 Hiren Radford MD [address] [place] [address] Compensation And Benefits Analyst Cardiology 09/03/18 Serjio Christianson MD [address] [place] [address] Vascular 01/26/24 documented as of this encounter
--- OUTSIDE RECORDS SUMMARY | 2024-11-30 07:18 | XMS_ITS | Encounter Summary ---
Author Organization [employer] Address [address] [facility] 7t [place] [address] Care Team Providers Care Ointment Mill Tender Name Role Phone Celia Torres MD Primary Care Provider Danielle Kaufman OD Unavailable [phone] Larissa Trujillo DDS Unavailable Unavailabl e Obdulia Restrepo Unavailable [phone] Dustin Falcon MD Unavailable Belinda Sears MD Unavailable [phone] Dipak Urban MD Unavailable Hiren Radford MD Unavailable [phone] Reason for Visit * Reason Comments Med Refill Encounter Details Date Type Department Care Team (Late st Contact Info) Description 11/15/2022 Refill [facility] CHC MED & PEDS 505 [place], [place] [phone] Celia Torres MD [address] [place], [place] [phone] S/P aortic bifurcation bypass graft Social History Tobacco Use Types Packs/Day Years [...] Description 12/07/2024 8:45 AM EDT Office Visit [facility] CHC MED & PEDS [address] [place], [place] [phone] Celia Torres MD 505 [place], [place] [phone] 12/29/2024 2:00 PM EDT Office Visit [facility] OPTOMETRY [address] [place] [address] Teressa Velazquez OD [address] [place] [address] documented as of this encounter Visit Diagnoses Diagnosis S/P aortic bifurcation bypass graft Other postprocedural status documented in this encounter Additional Health Concerns Assessment Noted Time PHQ-9 Depression Total Score: 1 07/10/19 23 10:12 AM EDT documented as of this encounter Care Teams Ointment Mill Tender Relationship Specialty Start Date End Date Celia Torres MD 230 [place] [address] PCP - General Family Medicine 03/10/12 Danielle Kaufman OD [address] [place] [address] Optometry 09/03/18 Larissa Trujillo DDS [address] [place] [address] Resident Dental Sales Development Manager 05/23/13 Obdulia Restrepo [address] [place] [address] [address] [place] [address] Heavy Antiarmor Weapons Infantryman 05/27/23 Dustin Falcon MD [address] [place] [address] Dr [address] [place] [address] Orthopaedic Surgery 04/08/23 Belinda Sears MD [address] [facility] [address] [place] [address] Referring Physician Family Medicine 07/23/23 Dipak Urban MD [address] [place] [address] Drive 3rd [place] [address] Surgeon General Surgery 04/17/23 Hiren Radford MD [address] [place] [address] Naval Engineer Cardiology 09/03/18 Serjio Christianson MD [address] [place] [address] Vascular 01/26/24 documented as of this encounter
--- OUTSIDE RECORDS SUMMARY | 2024-11-30 07:18 | XMS_ITS | Encounter Summary ---
Author Organization [employer] Address [address] [facility] 7t [place] [address] Care Team Providers Care Furniture Cleaner Name Role Phone Celia Torres MD Primary Care Provider Danielle Kaufman OD Unavailable [phone] Larissa Trujillo DDS Unavailable Unavailabl e Obdulia Restrepo Unavailable [phone] Dustin Falcon MD Unavailable Belinda Sears MD Unavailable [phone] Dipak Urban MD Unavailable [phone] Hiren Radford MD Unavailable [phone] Reason for Visit * Reason Onset Date Comments Med Refill 02/07/2023 Encounter Details Date Type Department Care Team (Late st Contact Info) Description 02/07/2023 Refill [facility] CHC MED & PEDS [address] [place], [place] [phone] Celia Torres MD [address] [place], [place] 1968[address] Social History Tobacco Use Types Packs/Day Years Used Date Smoking Tobacco: Never Passive Smoke Exposure: Never Smokeless Tobacco: Never Alcohol Use Standard Drinks/Week Comments Not Currently 0 (1 standard drink = 0.6 oz pur e alcohol) Depression Answer Date Recorded Patient Health Questionnaire-9 Score 1 07/09/2022 Housing Stability Answer Date Recorded What is your housing situation today? I have fanyshaka ayala 01/20/[address] you [...] encounter Miscellaneous Notes * Telephone Encounter - Celia Torres MD - 02/10/2023 11:54 AM EST Can u enter the diagnosis and resend it please * Telephone Encounter - Shiela Benoit RN - 02/07/2023 3:59 PM EDT TC to pt. Initial [employer] US[facility] [place] scheduled for 04/08/22 @ 2:30pm. * Telephone Encounter - Danay Foreman - 02/07/2023 3:45 PM EDT Tc from pt requesting medication refill on tramadol 50 mg tablet. Medication is inactive on nextgen documented in this encounter Plan of Treatment Upcoming Encounters Date Type Department Care Team (Late st Contact Info) Description 12/07/2024 8:45 AM EDT Office Visit [facility] MED & PEDS [address] [facility] [place] [phone] Celia Torres MD [address] [place] [address] 12/29/2024 2:00 PM EDT Office Visit [facility] OPTOMETRY [address] [place] [address] Teressa Velazquez, OD [address] [place] [address] documented as of this encounter Visit Diagnoses Not on filedocumented in this encounter Additional Health Concerns Assessment Noted Time PHQ-9 Depression Total Score: 1 07/10/19 23 10:12 AM EDT documented as of this encounter Care Teams Furniture Cleaner Relationship Specialty Start Date End Date Celia Torres MD 230 [place] [address] PCP - General Family Medicine 03/10/12 Danielle Kaufman OD [address] [place] [address] Optometry 09/03/18 Larissa Trujillo DDS [address] [place] [address] Resident Dental Corrugator Machine Operator 05/23/13 Obdulia Restrepo [address] [place] [address] [address] [place] [address] Code Official 05/27/23 Dustin Falcon MD [address] [place] [address] [address] [place] [address] Orthopaedic Surgery 04/08/23 Belinda Sears MD [address] [facility] [address] [place] [address] Referring Physician Family Medicine 07/23/23 Dipak Urban MD [address] 3rd [place] [address] Surgeon General Surgery 04/17/23 Hiren Radford MD [address] [place] [address] Geotechnical Laboratory Technician Cardiology 09/03/18 Serjio Christianson MD [address] [place] [address] Vascular 01/26/24 documented as of this encounter
--- OUTSIDE RECORDS SUMMARY | 2024-11-30 07:20 | XMS_ITS | Clinical Summary ---
Author Organization [facility] Address [address] [place] [address] Care Team Providers Care Department Traffic Freight Router Name Role Phone Ramon West MD Unavailable [phone] Ramon West MD Primary Care Provider [phone] Allergies Active Allergy Reactions Criticality Noted Date [...] place to sleep or slept in a fdc (including now)? No 08/26/2022 Sex and Gender [...] 84 10/09/2022 11:39 AM EDT Temperature 36.8 C (98.2 F) 09/16/2022 12:07 PM EDT Respiratory Rate 13 10/09/2022 11:39 AM EDT [...] of 2) 2014 COVID-19 Vaccine (3 - season) 2023 07/17/2020, [...] this topic Medical Devices Implanted Type Area Supervisor Pumping Station Device Identifier Shelf Expiration Date Model / Serial / Lot [id number] Graft Cv Glwv 10mm 30cm Abd Thrx Hydrolyzable Geltn Poly Wvn - [id number] Implanted:Qty: 1 on 08/26/2022 by Ramon West MD at [facility] Graft N/A: Aorta [employer] [id number] 05/07/2025 [id number] / [id number] / [id number] Graft Vasc Glwv Vascutek 16mm 30cm Thor Abdominal Twl Wvn - [id number] Implanted:Qty: 1 on 08/27/2022 by Ramon West MD at [facility] Graft N/A: Aorta [employer] 10/05/2023 [id number] / [id number] / [id number] Patch Vasc [id number] Xenosure Bvn Pericard Sterl Disp - [id number] Implanted:Qty: 1 on 08/26/2022 by Ramon West MD at [facility] Tissue N/A: Aorta [employer] [id number] 03/04/2028 [id number] / [id number] / [id number] Description:Patch type, size , and expiration date [...] 9.0(H) <5.7 % 08/25/2022 3:47 AM EDT [facility] Comment: A1c% Interpretation 5.7 - 6.0 Increase risk of diabetes 6.1 - 6.4 Higher risk of diabetes > or = 6.5 Consistent with diabetes Diabetes Care, 33(Supp 1):S1-S61, 2010 Estimated Average Glucose 212 mg/dL 08/25/2022 3:47 AM EDT [facility] Blood specimen / Unknown 08/24/2022 11:29 PM EDT 08/24/2022 11:39 PM EDT us Ritesh Edwards MD LAB BLOOD ORDERABLES Final Result HOSPITAL LAB See Below [address] [address] from Last 3 Months or Most Recently Relevant to Health Maintenance Insurance [facility] MEDICARE PART A & B MEDICARE PART A & B [facility] Advance Directives Documents on File Type Date Recorded Patient Chief Airport Guide Expl anation Advance Directive-Scan 10/07/2022 labs Advance [...] Child, Parent, Adult Sibling, Grandparent) Care Teams Department Traffic Freight Router Relationship Specialty Start Date End Date Ramon West MD [address] [id number] PCP - General Surgery, Cardiac 10/09/22 Ramon West MD [address] [address] Surgery, Cardiac 08/26/22 Hiren Radford [address] [place] [address] Property Utilization Officer Cardiovascular Disease 10/02/22 [facility] [address] [place] [address] Primary Care Provider General Medicine 10/02/22
--- OUTSIDE RECORDS SUMMARY | 2024-11-30 07:21 | XMS_ITS | Encounter Summary ---
Author Organization [employer] Address [address] [facility] 7t [place] [address] Care Team Providers Care Academic Computing Director Name Role Phone Celia Torres MD Primary Care Provider [phone] Danielle Kaufman OD Unavailable Larissa Trujillo DDS Unavailable Unavailabl e Obdulia Restrepo Unavailable [phone] Dustin [place] MD Unavailable Belinda Sears MD Unavailable [phone] Dipak Urban MD Unavailable Hiren Radford MD Unavailable Reason for Visit * Reason Comments Pre-visit Planning Pre visit planning L VM Encounter Details Date Type Department Care Team (Late st Contact Info) Description 11/29/2024 Patient Outreach [facility]IC[facility] [address] [place] [address] Celia Torres MD [address] [place], [place] [phone] Pre-visit Planning (Pre visit planning LVM ) Social History Tobacco Use Types Packs/Day Years [...] AM EDT documented as of this encounter Progress Notes * Wilfredo Shoemaker - 11/29/2024 3:22 PM EDT RICHY Her placed outbound call to patient to complete pre-visit planning. No answer at this time.Patient name and were not confirmed. CC left voicemail requesting return call. Direct contact information provided. documented in this encounter Plan of Treatment Upcoming Encounters Date Type Department Care Team ([facility] st Contact Info) Description 12/07/2024 8:45 AM EDT Office Visit [facility] MED & PEDS [address] [place] [address] Celia Torres MD [address] [place] [address] 12/29/2024 2:00 PM EDT Office Visit [facility] OPTOMETRY [address] [place] [address] Teressa Velazquez, OD [address] [place] [address] documented as of this encounter Visit Diagnoses Not on filedocumented in this encounter Additional Health Concerns Assessment Noted Time PHQ-9 Depression Total Score: 1 07/10/19 23 10:12 AM EDT documented as of this encounter Care Teams Academic Computing Director Relationship Specialty Start Date End Date Celia Torres MD [address] [place] [address] PCP - General Family Medicine 03/10/12 Danielle Kaufman OD [address] [place] [address] Optometry 09/03/18 Larissa Trujillo DDS [address] [place] [address] Resident Dental Racecourse Barrier Attendant 05/23/13 Obdulia Restrepo [address] [place] [address] [address] [place] [address] Soft Metals Engraver Hand 05/27/23 Dustin [place] MD [address] [place] [address] [address] [place] [address] Orthopaedic Surgery 04/08/23 Belinda Sears MD [address] [facility] [address] [place] [address] Referring Physician Family Medicine 07/23/23 Dipak Urban MD [address] 3rd [place] [address] Surgeon General Surgery 04/17/23 Hiren Radford MD [address] [place] [address] Senior Warehouse Clerk Cardiology 09/03/18 Serjio Christianson MD [address] [place] [address] Vascular 01/26/24 documented as of this encounter
== END 2024-11-30 08:00 | disposition home or self-care (01) ==
LOC: HO.HUSH 07:12
PROVIDERS: PCP Student in an Organized Health Care Education/Training Program; Visit Provider Nurse Practitioner Family
DX: R39.89 Other symptoms and signs involving the genitourinary system (principal); N52.9 Male erectile dysfunction, unspecified
CPT/HCPCS: 99214

== ENCOUNTER 2024-12-08 10:29 | Outpatient (REF) | payer MEDICARE, MEDICAID, SELFPAY ==
--- OUTSIDE RECORDS SUMMARY | 2024-12-07 08:45 | XMS_ITS | Encounter Summary ---
Author Organization [employer] Address [address] [place] [address] 7t [place] [address] Care Team Providers Care Windows Support Engineer Name Role Phone Celia Torres MD Primary Care Provider [phone] Danielle Kaufman OD Unavailable [phone] Larissa Trujillo DDS Unavailable Unavailabl e Obdulia Restrepo Unavailable [phone] Dustin [place] MD Unavailable Belinda Sears MD Unavailable [phone] Dipak Urban MD Unavailable Hiren Radford MD Unavailable [phone] Reason for Referral * Consultation (STAT) - Authorized Specialty Diagnoses / Procedures Referred By Contac t Referred To Contact Sleep Medicine Diagnoses Sleep apnea, unspecified type Celia Torres MD [address] [place] [address] Phone: tel: fax: Sleep Medicine Service [address], [address] [place] [address] Phone: tel: fax: Referral ID Status Reason Start Date Expiration Date Visits Requested Visits Authorized [id number] Authorized Specialty Services Required 12/07/2024 12/07/2025 1 1 Reason for Visit * Reason Comments Diabetes Mass Right ear Encounter Details Date Type Department Care Team ([facility] st Contact Info) Description 12/07/2024 8:45 AM EDT Office Visit [facility] MED & PEDS [address] [place] [address] Celia Torres MD [address] [place] [address] Type 2 diabetes mellitus without complication, without long-term current use of insulin (CMS/HCC) (Primary Dx); Benign hypertension; Sleep apnea, unspecified type; Dietary counseling; Exercise counseling; Sebaceous cyst Social History Tobacco Use Types Packs/Day Years Used Date Smoking Tobacco: Never Passive Smoke Exposure: Never Smokeless Tobacco: Never Tobacco Cessation:Counseling Given: Not Answered Alcohol Use Standard Drinks/Week Comments Not Currently 0 (1 standard drink = 0.6 oz pur e alcohol) Depression Answer Date Recorded Patient Health Questionnaire-9 Score 2 12/07/2024 Patient Health Questionnaire-9 Score 2 12/07/2024 Last PHQ-9: Questionnaire Data Not on file 0 12/07/2024 Housing Stability Answer Date Recorded What is [...] Answer Date Recorded Patient Health Questionnaire-2 Score 0 12/07/2024 Internet Access Answer Date Recorded Internet Access Q1 Yes 07/06/2024 Internet Access Q2 Not on file 07/06/2024 Sex and Gender Information Value Date Recorded Sex Assigned at Male 02/04/2022 10:14 AM EDT Legal Sex Male 10:14 AM EDT Gender Identity Male 02/04/2022 10:14 AM EDT Sexual Orientation Choose not to disclose 2021 10:14 AM EDT documented as of this encounter Last Filed Vital Signs Vital Sign Reading Time Taken Comments Blood Pressure 139/79 12/07/2024 8:49 AM EDT Pulse 66 12/07/2024 8:49 AM EDT Temperature 36.4 C (97.5 F) 12/07/2024 8:49 AM EDT Respiratory Rate 18 12/07/2024 8:49 AM EDT Oxygen Saturation 97% 12/07/2024 8:49 AM EDT Inhaled Oxygen Concentration - - Weight 100 kg (221 lb) 12/07/2024 8:49 AM EDT Height 167.6 cm (5' 6 ) 12/07/2024 8:49 AM EDT Body Mass Index 35.67 12/07/2024 8:49 AM EDT documented in this encounter Functional Status * Over the past 2 weeks, how often have you been bothered by any of the following problems? Question Answer Date of Assessment Author Patient Health Questionnaire -2 Score 0 12/07/2024 8:50 AM EDT Nettie Anderson MA * Little interest or pleasure in doing things Answer Date of Assessment Author Not at all 12/07/2024 8:50 AM JUSTINOT Ursula Anderson MA * Feeling down, depressed, or hopeless Answer Date of Assessment Author Not at all 12/07/2024 8:50 AM JUSTINOT Ursula Anderson MA * Trouble falling or staying asleep, or sleeping too much Answer Date of Assessment Author Several days 12/07/2024 8:50 AM EDT Ursula Anderson MA * Feeling tired or having little energy Answer Date of Assessment Author Several days 12/07/2024 8:50 AM EDT Ursula Anderson MA * Poor appetite or overeating Answer Date of Assessment Author Not at all 12/07/2024 8:50 AM JUSTINOT Ursula Anderson MA * Feeling bad about yourself - or that you are a failure or have let yourself or your family down Answer Date of Assessment Author Not at all 12/07/2024 8:50 AM EDUrsula Rivera MA * Trouble concentrating on things, such as reading the newspaper or watching television Answer Date of Assessment Author Not at all 12/07/2024 8:50 AM Ursula Mcguire MA * Moving or speaking so slowly that other people could have noticed? Or the opposite - being so fidgety or restless that you have been moving around a lot more than usual. Answer Date of Assessment Author Not at all 12/07/2024 8:50 AM Ursula Mcguire MA * Thoughts that you would be better off or hurting yourself in some way Answer Date of Assessment Author Not at all 12/07/2024 8:50 AM Ursula Mcguire MA * Patient Health Questionnaire-9 Score Answer Date of Assessment Author 2 12/07/2024 8:50 AM Ursula Mcguire MA * How difficult have these problems made it for you to do your work, take care of things at home, or get along with other people? Answer Date of Assessment Author Not difficult at all 12/07/2024 8:50 AM Nettie Frye MA documented as of this encounter Progress Notes * Celia Torres MD - 12/07/2024 8:45 AM EDT Subjective Patient ID: David Nieves is a 59 y.o. male who presents for No chief complaint on file.. Diabetes He presents for his follow-up diabetic visit. He has type 2 diabetes mellitus. His disease course has been stable. There are no hypoglycemic associated symptoms. There are no diabetic associated symptoms. There are no hypoglycemic complications. Symptoms are stable. There are no diabetic complications. Risk factors for coronary artery disease include family history, male sex and hypertension. Current diabetic treatment includes oral agent (dual therapy). He is compliant with treatment all of the time. He is following a generally healthy diet. Meal planning includes carbohydrate counting. He has had a previous visit with a dietitian. An NICHOLAS inhibitor/angiotensin II receptor nadia is being t aken. PT STOPPED TAKING ALL MEDS Review of Systems Constitutional: Negative. Respiratory: Negative. Cardiovascular: Negative. Gastrointestinal: Negative. Genitourinary: Negative. Objective Physical Exam Constitutional: Appearance: Normal appearance. Cardiovascular: Rate and Rhythm: Normal rate and regular rhythm. Pulmonary: Effort: Pulmonary effort is normal. Breath sounds: Normal breath sounds. Neurological: General: No focal deficit present. Mental Status: He is alert. Psychiatric: Mood and Affect: Mood normal. Behavior: Behavior normal. Assessment/Plan Diagnoses and all orders for this visit: Type 2 diabetes mellitus without complication, without long-term current use of insulin ([facility]) Comments: Restarted On jardiance Hold glipizide Strongly advised complaince [facility] meds Advised Low sugar and Low carb diet. Counseled regarding self-monitoring of blood glucose. Orders: - POCT Glucose Benign hypertension Comments: Stable Maintain a low-sodium diet (less than 2 grams per day). Maintain a regular cardiovascular exercise program. Advised to maintain a low-fat, low-cholesterol diet. Counseled regarding importance of weight loss. Counseled re: potential co-morbidities including cardiovascular disease. Sleep apnea, unspecified type Comments: Referred to Sleep clinic Orders: - Referral to Sleep Medicine; Future Sebaceous cyst No further intervention Dietary counseling Exercise counseling Other orders - empagliflozin (Jardiance) 10 MG; Take 1 tablet (10 mg) by mouth in the morning. documented in this encounter Plan of Treatment Upcoming Encounters Date Type Department Care Team (Late st Contact Info) Description 12/29/2024 2:00 PM EDT Office Visit [facility] OPTOMETRY [address] [place] [address] Teressa Velazquez, OD [address] [place] [address] Scheduled Referrals Name Type Priority Associated Diagnoses Orde r Schedule Referral to Sleep Medicine Outpatient Referral STAT Sleep apnea, unspecified type Expected: 12/07/2024 (Approximate), Expires: 12/07/2025 documented as of this encounter Procedures Procedure Name Priority Date/Time Associated Diagnosis Comments POCT GLUCOSE Routine 12/07/2024 8:51 AM EDT Type 2 diabetes mellitus without complication, without long-term current use of insulin ([facility]) documented in this encounter Results * (ABNORMAL) POCT Glucose (12/07/2024 8:51 AM EDT) Glucose Blood, POC 223(A) 60 - 200 mg/dL QC Media Lot # [id number] Lot# Expiration Date Blood Capillary blood specimen / Unknown 12/07/2024 8:51 AM EDT Celia Torres MD POINT OF CARE TEST ENTER/EDIT OR DERABLES Final Result documented in this encounter Visit Diagnoses Diagnosis Type 2 diabetes mellitus without complication, without long-term current use of insulin ([facility])- Primary Benign hypertension Essential hypertension, benign Sleep apnea, unspecified type Dietary counseling Dietary surveillance and counseling Exercise counseling Sebaceous cyst documented in this encounter Additional Health Concerns Assessment Noted Time PHQ-9 Depression Total Score: 2 12/08/19 25 8:50 AM EDT documented as of this encounter Care Teams Windows Support Engineer Relationship Specialty Start Date End Date Celia Torres MD [address] [place] [address] PCP - General Family Medicine 03/10/12 Danielle Kaufman OD [address] [place] [address] Optometry 09/03/18 Larissa Trujillo DDS [address] [place] [address] Resident Dental Nurse Aide 05/23/13 Obdulia Restrepo [address] [place] [address] [address] [place] [address] Acupuncturist 05/27/23 Dustin [place] MD [address] [place] [address] [address] [place] [address] Orthopaedic Surgery 04/08/23 Belinda [place] MD [address] [facility] [address] [place] [address] Referring Physician Family Medicine 07/23/23 Dipak [place] MD [address]rd [place] [address] Surgeon General Surgery 04/17/23 Hiren [place] MD [address] [place] [address] It Specialist Cardiology 09/03/18 Serjio Christianson MD [address] [place] [address] Vascular 01/26/24 documented as of this encounter
--- NOTE | 2024-12-08 10:34 | EMG_ITS ---
Chief complaint: Hand numbness, right worse than left Reason for referral: Evaluate for Carpal Tunnel Syndrome Referred by: Mike RUIZ Procedure done: Bilateral upper extremities NCS/EMG Precautions and/or limitations: None The limb temperature was monitored continuously and remained between 32-36 degrees C during the performance of the NCS. Nerve Conduction Studies Anti Sensory Summary Table ?Stim Site NR Onset (ms) Norm Onset (ms) Peak (ms) Norm Peak (ms) O-P Amp (?V) Norm O-P Amp Site1 Site2 Delta-0 (ms) Dist (cm) Dave (m/s) Norm Dave (m/s) Left Median Anti Sensory (2nd Digit) Wrist ? 2.5 3.4 <3.6 22.2 >10 Wrist 2nd Digit 2.5 14.0 56 Right Median Anti Sensory (2nd Digit) Wrist ? 3.1 3.7 <3.6 17.8 >10 Wrist 2nd Digit 3.1 14.0 45 Left Ulnar Anti Sensory (5th Digit) Wrist ? 2.0 3.0 <3.7 10.3 >15.0 Wrist 5th Digit 2.0 14.0 70 Right Ulnar Anti Sensory (5th Digit) Wrist ? 2.4 3.0 <3.7 9.0 >15.0 Wrist 5th Digit 2.4 14.0 58 Motor Summary Table ?Stim Site NR Onset (ms) Norm Onset (ms) O-P Amp (mV) Norm O-P Amp iAmp (mV) Amp (1st) (%) Site1 Site2 Delta-0 (ms) Dist (cm) Dave (m/s) Norm Dave (m/s) Left Median Motor (Abd Poll Brev) Wrist ? 3.8 <3.9 9.0 >4.5 10.3 100.0 Elbow Wrist 4.2 21.0 50 >45 Elbow ? 8.0 7.5 8.6 83.3 Right Median Motor (Abd Poll Brev) Wrist ? 3.7 <3.9 10.1 >4.5 11.9 100.0 Elbow Wrist 4.1 21.0 51 >45 Elbow ? 7.8 9.6 11.4 95.0 Left Ulnar Motor (Abd Dig Minimi) Wrist ? 2.8 <3.0 10.6 >5 12.0 100.0 B Elbow Wrist 4.0 20.0 50 >45 B Elbow ? 6.8 10.2 11.7 96.2 A Elbow B Elbow 2.0 10.0 50 >45 A Elbow ? 8.8 9.2 11.0 86.8 Right Ulnar Motor (Abd Dig Minimi) Wrist ? 2.7 <3.0 10.2 >5 13.0 100.0 B Elbow Wrist 3.9 21.0 54 >45 B Elbow ? 6.6 10.2 13.1 100.0 A Elbow B Elbow 1.5 10.0 67 >45 A Elbow ? 8.1 9.7 12.5 95.1 Comparison Summary Table ?Stim Site NR Peak (ms) Norm Peak (ms) P-T Amp (?V) Site1 Site2 Delta-P (ms) Norm Delta (ms) Right Median/Radial Dig I Comparison (Digit 1 - 10cm) Median ? 3.2 <2.9 123.0 Median Radial 0.8 Radial ? 2.4 <2.8 2.2 EMG ?Side Muscle Nerve Root Ins Act Fibs Psw Amp Dur Poly Recrt Int Pat Comment Right 1stDorInt Ulnar C8-T1 Nml Nml Nml Nml Nml 0 Nml Complete Right FlexCarpiUln Ulnar C8,T1 Nml Nml Nml Nml Nml 0 Nml Complete Right Biceps Musculocut C5-6 Nml Nml Nml Nml Nml 0 Nml Complete Right Triceps Radial C6-7-8 Nml Nml Nml Nml Nml 0 Nml Complete Right Deltoid Axillary C5-6 Nml Nml Nml Nml Nml 0 Nml Complete Left 1stDorInt Ulnar C8-T1 Nml Nml Nml Nml Nml 0 Nml Complete Left FlexCarpiUln Ulnar C8,T1 Nml Nml Nml Nml Nml 0 Nml Complete Left Biceps Musculocut C5-6 Nml Nml Nml Nml Nml 0 Nml Complete Left Triceps Radial C6-7-8 Nml Nml Nml Nml Nml 0 Nml Complete Left Deltoid Axillary C5-6 Nml Nml Nml Nml Nml 0 Nml Complete FINDINGS: Right median sensory nerve showed prolonged distal latency, normal amplitude and normal conduction velocity. Significant interlatency difference between right median and radial sensory nerves. All other nerves tested were within normal. Concentric needle EMG was performed in selected muscles of the bilateral upper extremities. Study did not reveal signs of electric abnormalities as shown in the table above. IMPRESSION: 1. This is an abnormal study. 2. There is electrodiagnostic evidence for right mild median neuropathy at the wrist, consistent with carpal tunnel syndrome. 3. There is no electrodiagnostic evidence for ulnar neuropathy, brachial plexopathy, or cervical radiculopathy. 4. There is no electrodiagnostic evidence for median neuropathy on the left. Thank you for your kind referral. Janeth Steiner MD, MARIA A Board Certified, [place] Board of [employer] and Rehabilitation (ABPMR) Board Certified, [place] Board of Electrodiagnostic Medicine (ABEM) CODIN [phone] x [phone] MTDD
--- OUTSIDE RECORDS SUMMARY | 2024-12-08 12:15 | XMS_ITS | Encounter Summary ---
Author Organization [employer] Address [address] [facility] 7t [place] [address] Care Team Providers Care Automobile Mechanic Apprentice Name Role Phone Celia Torres MD Primary Care Provider Danielle Kaufman OD Unavailable [phone] Larissa Trujillo DDS Unavailable Unavailabl e Obdulia Restrepo Unavailable [phone] Dustin [place] MD Unavailable Belnida Sears MD Unavailable [phone] Dipak [place] MD Unavailable Hiren Radford MD Unavailable [phone] Reason for Visit * Reason Onset Date Comments chart prep 12/03/2024 Encounter Details Date Type Department Care Team (Late st Contact Info) Description 12/03/2024 Telephone [facility] [facility] MED & PEDS [address] [place], [place] [id number] Celia Torres MD [address] [place] [address] chart prep Social History Tobacco Use Types Packs/Day Years Used Date Smoking Tobacco: Never Passive Smoke Exposure: Never Smokeless Tobacco: Never Alcohol Use Standard Drinks/Week Comments Not Currently 0 (1 standard drink = 0.6 oz pur e alcohol) Depression Answer Date Recorded Patient Health Questionnaire-9 Score 1 07/09/2022 Housing Stability Answer Date Recorded What is your housing situation today? I have fany jamie 07/06/[address] you li [...] encounter Miscellaneous Notes * Telephone Encounter - Regina Monroe MA - 12/03/2024 8:52 AM EDT Chart Prep Labs: done Images: done Referrals: complete Vaccines due: PCV20 Screenings: foot exam Overdue care gaps: SBIRT, PHQ-9, and Disability screen documented in this encounter Plan of Treatment Upcoming Encounters Date Type Department Care Team (Late st Contact Info) Description 12/29/2024 2:00 PM EDT Office Visit [facility] OPTOMETRY [address] [place], [place] [address] TarTeressa dumont, OD [address] [place] [address] documented as of this encounter Visit Diagnoses Not on filedocumented in this encounter Additional Health Concerns Assessment Noted Time PHQ-9 Depression Total Score: 1 07/10/19 23 10:12 AM EDT documented as of this encounter Care Teams Automobile Mechanic Apprentice Relationship Specialty Start Date End Date Celia Torres MD [address] [place] [address] PCP - General Family Medicine 03/10/12 Danielle Kaufman OD [address] [place] [address] Optometry 09/03/18 Larissa Trujillo DDS [address] [place] [address] Resident Dental Stock Order Lister 05/23/13 Obdulia Restrepo [address] [place] [address] [address] [place] [address] Accounting Technician 05/27/23 Dustin [place] MD [address] [place] [address] [address] [place] [address] Orthopaedic Surgery 04/08/23 Belinda [place] MD [address] [facility] [address] [place] [address] Referring Physician Family Medicine 07/23/23 Dipak [place] MD [address] [place] [address] Drive 3rd [place] [address] Surgeon General Surgery 04/17/23 Hiren [place] MD [address] [place] [address] Lubricating Specialist Cardiology 09/03/18 Serjio Christianson MD [address] [place] [address] Vascular 01/26/24 documented as of this encounter
--- OUTSIDE RECORDS SUMMARY | 2024-12-08 12:15 | XMS_ITS | Encounter Summary ---
Author Organization [employer] Address [address] [place] [address] 7t [place] [address] Care Team Providers Care Supervisor Pre Wave Name Role Phone Celia Torres MD Primary Care Provider [phone] Danielle Kaufman OD Unavailable [phone] Larissa rTujillo DDS Unavailable Unavailabl e Obdulia Restrepo Unavailable [phone] Dustin Falcon MD Unavailable Belinda Sears MD Unavailable [phone] Dipak Urban MD Unavailable [phone] Hiren Radford MD Unavailable [phone] Reason for Visit * Reason Onset Date Comments Med Refill 11/11/2022 Encounter Details Date Type Department Care Team (Late st Contact Info) Description 11/11/2022 Telephone [facility] CHC MED & PEDS [address] [place], [place] [phone] Celia Torres MD 505 [place] [address] Med Refill Social History Tobacco Use Types [...] (Ultram) 50 MG tablet Please sent to [id number] [place] - [address] [facility] documented in this encounter Plan of Treatment Upcoming Encounters Date Type Department Care Team (Late st Contact Info) Description 12/29/2024 2:00 PM EDT Office Visit [facility] OPTOMETRY [address] [place] [address] Teressa Velazquez OD [address] [place] [address] documented as of this encounter Visit Diagnoses Not on filedocumented in this encounter Additional Health Concerns Assessment Noted Time PHQ-9 Depression Total Score: 1 07/10/19 23 10:12 AM EDT documented as of this encounter Care Teams Supervisor Pre Wave Relationship Specialty Start Date End Date Celia Torres MD 230 [place] [address] PCP - General Family Medicine 03/10/12 Danielle Kaufman OD [address] [place] [address] Optometry 09/03/18 Larissa Trujillo DDS [address] [place] [address] Resident Dental Barber Shop Operator 05/23/13 Obdulia Restrepo [address] [place] [address] Dr Ebony [address] [place] [address] History Tutor 05/27/23 Dustin Falcon MD [address] [place] [address] Dr [address] [place] [address] Orthopaedic Surgery 04/08/23 Belinda Sears MD 575 [facility] 404 [place] [address] Referring Physician Family Medicine 07/23/23 Dipak Urban MD [address] [place] [address] Drive 3rd [place] [address] Surgeon General Surgery 04/17/23 Hiren Radford MD [address] [place] [address] Tire Fabricator Cardiology 09/03/18 Serjio Christianson MD 35[address] [place] [address] Vascular 01/26/24 documented as of this encounter
--- OUTSIDE RECORDS SUMMARY | 2024-12-08 12:15 | XMS_ITS | Encounter Summary ---
Author Organization [employer] [facility] Address [address] [place] [address] 7t [place] [address] Care Team Providers Care Automotive Porter Name Role Phone Celia Torres MD Primary Care Provider [phone] Danielle Kaufman OD Unavailable [phone] Larissa Trujillo DDS Unavailable Unavailabl e Obdulia Restrepo Unavailable [phone] Dustin Falcon MD Unavailable Belinda Sears MD Unavailable [phone] Dipak Urban MD Unavailable [phone] Hiren Radford MD Unavailable Encounter Details Date Type Department Care Team (Latest Contact Info) Description 10/24/2020 Abstract [facility] CONVERSIONS Dental, Provider, DDS Social History [...] Care Team ( st Contact Info) Description 12/29/2024 2:00 PM EDT Office Visit [facility] OPTOMETRY [address] [place], [place] [phone] Teressa Velazquez OD [address] [place], [place] [phone] documented as of this encounter Visit Diagnoses Not on filedocumented in this encounter Care Teams Automotive Porter Relationship Specialty Start Date End Date Celia Torres MD 230 [place] [address] PCP - General Family Medicine 03/10/12 Danielle Kaufman OD [address] [place] [address] Optometry 09/03/18 Larissa Trujillo DDS [address] [place] [address] Resident Dental Packerhead Machine Operator 05/23/13 Obdulia Restrepo [address] [place] [address] [address] [place] [address] Auto Cleaner 05/27/23 Dustin Falcon MD [address] [place] [address] Dr [address] [place] [address] Orthopaedic Surgery 04/08/23 Belinda Sears MD 575 [facility] 404 [place] [address] Referring Physician Family Medicine 07/23/23 Dipak Urban MD [address] [place] [address] 3rd [place] [address] Surgeon General Surgery 04/17/23 Hiren Radford MD [address] [place] [address] Mine Environmental Engineer Cardiology 09/03/18 Serjio Christianson MD [address] [place] [address] Vascular 01/26/24 documented as of this encounter
--- OUTSIDE RECORDS SUMMARY | 2024-12-08 12:15 | XMS_ITS | Encounter Summary ---
Author Organization [employer] Address [address] [place] [address] 7t [place] [address] Care Team Providers Care Accountant Cost Name Role Phone Celia Torres MD Primary Care Provider Danielle Kaufman OD Unavailable [phone] Larissa Trujillo DDS Unavailable Unavailabl e Obdulia Restrepo Unavailable [phone] Dustin Falcon MD Unavailable Belinda Sears MD Unavailable [phone] Dipak Urban MD Unavailable Hiren Radford MD Unavailable Encounter Details Date Type Department Care Team (Late st Contact Info) Description 10/14/2022 Orders Only [facility] MEDICINE [address] [place], [place] [phone] Shalonda Srinivasan, PharmD [address] [place], [place] [phone] Social History Tobacco Use Types Packs/Day Years [...] Recorded In the last 10 days, have homa u been in contact with someone who was confirmed or suspected to have Coronavirus/COVID-19? No / Unsure 10/11/2022 9:28 AM EDT documented as of this encounter Plan of Treatment Upcoming Encounters Date Type Department Care Team (Late st Contact Info) Description 12/29/2024 2:00 PM EDT Office Visit [facility] OPTOMETRY [address] [place] [address] Teressa Velazquez, OD [address] [place] [address] documented as of this encounter Visit Diagnoses Not on filedocumented in this encounter Additional Health Concerns Assessment Noted Time PHQ-9 Depression Total Score: 1 07/10/19 23 10:12 AM EDT documented as of this encounter Care Teams Accountant Cost Relationship Specialty Start Date End Date Celia Torres MD [address] [place] [address] PCP - General Family Medicine 03/10/12 Danielle Kaufman OD [address] [place] [address] Optometry 09/03/18 Larissa Trujillo DDS [address] [place] [address] Resident Dental Manager Car 05/23/13 Obdulia Restrepo [address] [place] [address] [address] [place] [address] Prison Teacher 05/27/23 Dustin Falcon MD [address] [place] [address] Dr [address] [place] [address] Orthopaedic Surgery 04/08/23 Belinda Sears MD 575 [facility] [address] [place] [address] Referring Physician Family Medicine 07/23/23 Dipak Urban MD [address] [place] [address] 3rd [place] [address] Surgeon General Surgery 04/17/23 Hiren Radford MD [address] [place] [address] Machine Operator Hop Worker Cardiology 09/03/18 Serjio Christianson MD [address] [place] [address] Vascular 01/26/24 documented as of this encounter
--- OUTSIDE RECORDS SUMMARY | 2024-12-08 12:15 | XMS_ITS | Encounter Summary ---
Author Organization [employer] Address [address] [place] [address] 7t [place] [address] Care Team Providers Care Strategic Accounts Manager Name Role Phone Celia Torres MD Primary Care Provider [phone] Danilele Kaufman OD Unavailable [phone] Larissa Trujillo DDS Unavailable Unavailabl e Obdulia Restrepo Unavailable [phone] Dustin Falcon MD Unavailable Belinda Sears MD Unavailable [phone] Dipak Urban MD Unavailable Hiren Radford MD Unavailable Reason for Visit * Reason Comments Med Refill Encounter Details Date Type Department Care Team (Late st Contact Info) Description 11/15/2022 Refill [facility] CHC MED & PEDS [address] [place], [place] [phone] Celia Torres MD 505 [place], [place] [phone] S/P aortic bifurcation bypass graft Social History [...] Description 12/29/2024 2:00 PM EDT Office Visit [facility] OPTOMETRY [address] [place] [address] Teressa Velazquez OD [address] [place] [address] documented as of this encounter Visit Diagnoses Diagnosis S/P aortic bifurcation bypass graft Other postprocedural status documented in this encounter Additional Health Concerns Assessment Noted Time PHQ-9 Depression Total Score: 1 07/10/19 23 10:12 AM EDT documented as of this encounter Care Teams Strategic Accounts Manager Relationship Specialty Start Date End Date Celia Torres MD 230 [place] [address] PCP - General Family Medicine 03/10/12 Danielle Kaufman OD 230 [place] [address] Optometry 09/03/18 Larissa Trujillo DDS [address] [place] [address] Resident Dental Patient Relations Liaison 05/23/13 Obdulia Restrepo [address] [place] [address] Dr [address] [place] [address] Crop Farm Workers 05/27/23 Dustin Falcon MD [address] [place] [address] Dr [address] [place] [address] Orthopaedic Surgery 04/08/23 Belinda Sears MD 575 [facility] [address] [place] [address] Referring Physician Family Medicine 07/23/23 Dipak Urban MD [address] [place] [address] Drive [address]rd [place] [address] Surgeon General Surgery 04/17/23 Hiren Radford MD [address] [place] [address] Quality Assurance/R&D Lab Technician Cardiology 09/03/18 Serjio Christianson MD [address] [place] [address] Vascular 01/26/24 documented as of this encounter
--- OUTSIDE RECORDS SUMMARY | 2024-12-08 12:15 | XMS_ITS | Encounter Summary ---
Author Organization [facility] Address [address] [place] [address] Care Team Providers Care Diesel Truck Driver Name Role Phone Ramon West MD Unavailable [phone] Ramon West MD Primary Care Provider [phone] Encounter Details Date Type Department Care Team (Late st Contact Info) Description 11/11/2018 Scanned Document [facility] 3 ICU [address] [place] [address] Provider, Generic Social History Tobacco [...] documented as of this encounter Care Teams Diesel Truck Driver Relationship Specialty Start Date End Date Ramon West MD [address] [address] PCP - General Surgery, Cardiac 10/09/22 Ramon West MD [address] [address] Surgery, Cardiac 08/26/22 Hiren Radford [address] [place] [address] Dry Lumber Grader Cardiovascular Disease 10/02/22 [facility] 230 [place] [address] Primary Care Provider General Medicine 10/02/22 documented as of this encounter
--- OUTSIDE RECORDS SUMMARY | 2024-12-08 12:15 | XMS_ITS | Encounter Summary ---
Author Organization [employer] Address 75 [facility] 7t [place] [address] Care Team Providers Care Power System Dispatcher Name Role Phone Celia Torres MD Primary Care Provider [phone] Danielle Kaufman OD Unavailable [phone] Larissa Trujillo DDS Unavailable Unavailabl e Obdulia Resterpo Unavailable [phone] Dustin Falcon MD Unavailable Belinda Sears MD Unavailable [phone] Dipak Urban MD Unavailable Hiren Radford MD Unavailable [phone] Reason for Visit * Reason Onset Date Comments Med Refill 02/07/2023 Encounter Details Date Type Department Care Team (Late st Contact Info) Description 02/07/2023 Refill [facility] CHC MED & PEDS [address] [place], [place] [phone] Celia Torres MD 505 [place] [address] Social History Tobacco Use Types Packs/Day Years [...] 3:59 PM EDT TC to pt. Initial BOOM PUMP OPERATOR NV scheduled for 04/08/22 @ 2:30pm. * Telephone Encounter - Danay Foreman - 02/07/2023 3:45 PM EDT Tc from pt requesting medication refill on tramadol 50 mg tablet. Medication is inactive on [facility] documented in this encounter Plan of Treatment Upcoming Encounters Date Type Department Care Team (Late st Contact Info) Description 12/29/2024 2:00 PM EDT Office Visit [facility] OPTOMETRY [address] [place] [address] Teressa Velazquez, OD [address] [place] [address] documented as of this encounter Visit Diagnoses Not on filedocumented in this encounter Additional Health Concerns Assessment Noted Time PHQ-9 Depression Total Score: 1 07/10/19 23 10:12 AM EDT documented as of this encounter Care Teams Power System Dispatcher Relationship Specialty Start Date End Date Celia Torres MD [address] [place] [address] PCP - General Family Medicine 03/10/12 Danielle Kaufman OD 230 [place] [address] Optometry 09/03/18 Larissa Trujillo DDS [address] [place] [address] Resident Dental Nuclear Medicine Medical Director 05/23/13 Obdulia Restrepo [address] [place] [address] [address] [place] [address] Engine Monitor 05/27/23 Dustin Falcon MD [address] [place] [address] [address] [place] [address] Orthopaedic Surgery 04/08/23 Belinda Sears MD 575 [facility] [address] [place] [address] Referring Physician Family Medicine 07/23/23 Dipak Urban MD [address] [place] [address] Drive 3rd [place] [address] Surgeon General Surgery 04/17/23 Hiren Radford MD [address] [place] [address] Transportation Planner Cardiology 09/03/18 Serjio Christianson MD [address] [place] [address] Vascular 01/26/24 documented as of this encounter
--- OUTSIDE RECORDS SUMMARY | 2024-12-08 12:15 | XMS_ITS | Clinical Summary ---
Author Organization [employer] Address [address] [place] [address] [address] [place] [address] Care Team Providers Care Java Designer Name Role Phone Celia Torres MD Primary Care Provider [phone] Danielle Kaufman OD Unavailable [phone] Larissa Trujillo DDS Unavailable Unavailabl e Obdulia Restrepo Unavailable [phone] Dustin Falcon MD Unavailable Belinda Sears MD Unavailable [phone] Dipak Urban MD Unavailable Hiren Radford MD Unavailable Allergies Active Allergy Reactions Criticality Noted Date Comments Lisinopril Rash Low 09/03/2022 Penicillins Rash Low 09/03/2022 Medications TRUEplus Lancets 33G miscIndications:T ype 2 diabetes mellitus without complications ([facility]) Check sugar BID 60 each 5 023 Active FREESTYLE LITE test stripIndications: Type 2 diabetes mellitus without complications ([facility]) TEST BLOOD SUGAR DAILY 50 strip 5 023 Active sodium chloride 0.9% (NS) 0.9 % flush Flush PICC line with 5 ml pre and post use of PICC line and 5 ml pre / 10 ml post lab draws. 023 Active tamsulosin (Flomax) 0.4 MG 24 hr capsule Take 1 capsule by mouth 1 (one) time each day. 023 Active metoprolol succinate XL (Toprol-XL) 200 MG 24 hr tablet Take 1 tablet by mouth once daily 023 Active diphenhydrAMINE (BENADryl) 25 MG capsule Take 1 capsule (25 mg) by mouth if needed at bedtime for itching. 30 capsule 023 Active albuterol 108 (90 Base) MCG/ACT inhaler Inhale 2 puffs every 4 (four) hours if needed for wheezing or shortness of breath. 18 g 1 024 Active Spacer/Aero-Holdi ng Chambers (OptiChamber Nikia) misc 1 each every 4 (four) hours if needed (asthma). 1 each 024 Active meclizine (Antivert) 25 MG tablet 1 tab po BID 60 tablet 3 024 Active losartan (Cozaar) 100 MG tablet TAKE ONE TABLET EVERY MORNING 30 tablet 5 025 Active rosuvastatin (Crestor) 10 MG tabletIndications :Hyperlipidemia, unspecified hyperlipidemia type TAKE ONE TABLET EVERY EVENING FOR CHLOESTEROL 90 tablet 3 025 Active amLODIPine (Norvasc) 10 MG tabletIndications :Benign hypertension TAKE ONE TABLET EVERY EVENING FOR BLOOD PRESSURE 30 tablet 5 025 Active cephalexin (Keflex) 500 MG capsule Take 1 capsule by mouth 2 times daily. 025 Active Breo Ellipta 200-25 MCG/ACT aerosol powder inhale 1 puff by mouth daily 024 Active hydrALAZINE (Apresoline) 25 MG tablet 025 Active Diclofenac Sodium (Voltaren) 1 % gel Use topical BID 100 g 3 025 Active cyanocobalamin (Vitamin B-12) 1000 MCG tabletIndications :Benign hypertension TAKE ONE TABLET EVERY MORNING (VITAMIN) 90 tablet 025 Active azithromycin (Zithromax) 250 MG tablet Take 2 table 1 hour prior dental procedure (2 tabs) 6 tablet 025 Active Tradjenta 5 MG tablet TAKE ONE TABLET EVERY MORNING 30 tablet 1 025 Active aspirin (Aspirin Adult Low Strength) 81 MG EC tabletIndications :Hypertension, unspecified type TAKE ONE TABLET EVERY MORNING FOR BLOOD 90 tablet 025 Active empagliflozin (Jardiance) 10 MG Take 1 tablet (10 mg) by mouth in the morning. 30 tablet 1 025 Active meclizine (Antivert) 25 MG tablet 1 tab po daily 60 tablet Active glipiZIDE (Glucotrol) 10 MG tablet Take 20 mg by mouth. 018 2024 Discontinued Jardiance 10 MG TAKE ONE TABLET EVERY MORNING 30 tablet 1 025 2024 Discontinued(R eorder (will not trigger notification to Pharmacy)) Active Problems Problem Noted Date Diagnosed Date [...] surgery on t he circ sys 09/16/2022 residential (current) use of aspirin 09/16/2022 residential (current) use of oral hypoglycemic chasity gs [...] Encounters Date Type Department Care Team Description 12/07/2024 8:45 AM EDT Office Visit [facility] [address] [place] [address] Celia Torres MD Type 2 diabetes mellitus without complication, without long-term current use of insulin ([facility]) (Primary Dx); Benign hypertension; Sleep apnea, unspecified type; Dietary counseling; Exercise counseling; Sebaceous cyst 12/07/2024 Telephone [facility] [address] [place] [address] Celia Torres MD 12/07/2024 Travel 12/03/2024 Telephone [facility] [address] [place] [address] Celia Torres MD chart prep 11/29/2024 Patient Outreach [facility] MEDIC[facility] [address] [place] [address] Celia Torres MD Pre-visit Planning (Pre visit planning LVM ) 10/27/2024 9:15 AM EDT Office Visit [facility] OPTOMETRY [address] [place] [address] Presbyopia (Primary Dx) 10/20/2024 Refill [facility] [address] [place] [address] Celia Torres MD Hypertension, unspecified type 10/13/2024 Orders Only GENERIC EXTERNAL DATA DEPARTMENT Provider, Generic External Data 09/30/2024 Orders Only GENERIC EXTERNAL DATA DEPARTMENT Provider, Generic External Data 09/27/2024 9:00 AM EDT Office Visit [facility] [address] [place], [place] [phone] Teressa Velazquez, OD Optic atrophy of both eyes (Primary Dx); Optic neuropathy, bilateral; Presbyopia; Age-related nuclear cataract of both eyes; Dry eyes, bilateral 09/27/2024 Orders Only GENERIC EXTERNAL DATA DEPARTMENT Provider, Generic External Data 09/27/2024 Travel 09/26/2024 Refill [facility] [address] [place] [address] Celia Torres MD from Last 3 Months Immunizations Immunization Administration [...] Mass Index 35.67 12/07/2024 8:49 AM EDT Plan of Treatment Upcoming Encounters Date Type Department Care Team (Late st Contact Info) Description 12/29/2024 2:00 PM EDT Office Visit [facility] OPT[facility] [address] [place] [address] Teressa Velazquez, OD [address] [place] [address] Health Maintenance Due Date Last Done Comments CT Colonography 1965 Colonoscopy 1965 FIT 1965 FOBT 1965 HIV Screening 1965 Sigmoidoscopy 1965 Diabetes: Foot Exam 1974 Hepatitis C Screening 1982 Pneumococcal Vaccine: 50+ Years (2 of 2 - PCV) 05/13/2015 05/13/2014 Diabetes: Urine Protein Screening 04/27/2022 04/27/2021, 03/01/2020 RSV Patients and Patients Aged 60 years or older (1 - Risk 60-74 years 1-dose series) 2024 Influenza Vaccine (#1) 2024 6, 02/12/2015, 02/06/2015 Diabetes: Hemoglobin A1C 01/13/2025 025, 07/14/2024, 11/03/2023, Additional history exists Dental Oral Exam 02/10/2025 08/09/2024, 02/11/2024 Dental Prophylaxis 02/10/2025 08/09/2024, 02/11/2024 Dental X-Ray: Bitewings 02/11/2025 02/11/2024 SDOH Screening 07/06/2025 07/06/2024 Lipid Panel 07/22/2025 07/22/2024, 01/05, 07/11/2022, Additional history exists Alcohol/Substance Use Screening 12/07/2025 12/07/2024 Depression Screening 12/07/2025 12/07/2024, 12/08/19 25 Disability Screening 12/07/2025 12/07/2024 Tobacco Screening 12/07/2025 12/07/2024 Eye Exam 09/27/2026 09/27/2024, 09/06, 09/27/2024, Additional [...] complication, without long-term current use of insulin ([facility]) TESTOSTERONE, FREE (DIALYSIS) AND TOTAL,MS Routine 10/13/2024 [...] 09/27/2024 9:58 AM EDT Optic neuropathy, bilateral PROPHYLAXIS - ADULT Routine 08/09/2024 9 :00 AM EDT PERIODIC ORAL EVALUATION - ESTABLISHED PATIENT Routine 08/09/2024 9:00 AM EDT LIPID PANEL, STANDARD Routine 07/22/2024 8:06 AM EDT Type 2 diabetes mellitus without complication, without long-term current use of insulin ([facility]) INTRAORAL - COMPLETE SERIES OF RADIOGRAPHIC IMAGES Routine 02/11/2024 8:00 AM EST LAB COLOGUARD COLON CANCER SCREEN Routine 02/10/2024 6:22 AM EST Encounter for screening for malignant neoplasm of colon ALBUMIN, RANDOM URINE W/CREATININE Routine 04/27/2021 9:00 AM EST from Last 3 Months or Most Recently Relevant to Health Maintenance Results * (ABNORMAL) POCT Glucose (12/07/2024 8:51 AM EDT) Glucose Blood, POC 223(A) 60 - 200 mg/dL QC Media Lot # [id number] Lot# Expiration Date Blood Capillary blood specimen / Unknown 12/07/2024 8:51 AM EDT Celia Torres MD POINT OF CARE TEST ENTER/EDIT OR DERABLES Final Result * Testosterone, Free (Dialysis) And Total, MS (10/13/2024 9:33 AM EDT) Testosterone, Total 343 250 - 1100 ng/dL [facility] Comment:For additional infor mation, please refer tohttp://education.nothingGrinder/faq/[email or web address](This link is being provided for informational/educational purposes only.)This test was developed and its analytical performancecharacteristics have been determined [place] It hasnot been cleared or approved by the U.S. Food and DrugAdministration. This assay has been validated pursuantto the CLIA regulations and is used for clinicalpurposes. Testosterone, Free 50.1 35.0 - 155.0 pg/mL [facility] Comment:This test was develo ped and its analytical performancecharacteristics have been determined by [place]. It hasnot been cleared or approved by the U.S. Food and DrugAdministration. This assay has been validated pursuantto the CLIA regulations and is used for clinicalpurposes.THIS TEST WAS PERFORMED AT:[employer]/[id number] [place] [address]USPPVIHARIC ALEXIS MD,PHD 10/13/2024 9:33 AM EDT 10/13/2024 9:33 AM EDT us Generic External Data Provider LAB BLOOD ORDERAB LES Final Result Performing Organization Address City/[facility]/ZIP Co de Phone Number [facility] [address] [place] [phone] * PSA,Total (10/13/2024 9:33 AM EDT) Prostate Specific Antigen 0.48 <0.05 - 4.0 ng/mL [facility] Comment:PSA methodology: Darrel Perez i ChemiluminescentMicroparticle Immunoassay (CMIA) 10/13/2024 9:33 AM EDT 10/13/2024 9:33 AM EDT us Generic External Data Provider LAB BLOOD ORDERAB LES Final Result Performing Organization Address City/[facility]/ZIP Co de Phone Number [facility] [address] [place] [phone] * (ABNORMAL) Hemoglobin A1c (10/13/2024 9:33 AM EDT) Hemoglobin A1c 8.2(H) <6.0 % [facility] Comment:Hemoglobin A1C Refer ence Range Adults: 4.8 - 6.0 % Non diabetic: < 6.0 % Goal: < 7.0 %Additional Action Suggested: > 8.0 %Note: Hemoglobin A1c results are invalid for patients with abnormal amounts of HbF. Blood transfusions may impact the HbA1c concentration in the patient sample. Estimated Average Glucose 189 mg/dL [facility] Comment:eAG = Estimated ave rage glucose which is %A1C expressed asaverage glucose, using the formula of the S2C-EjeaytjJricxzv Glucose study (ADAG), Diabetes Care, Vol.31,#8,2007 10/13/2024 9:33 AM EDT 10/13/2024 9:33 AM EDT us Generic External Data Provider LAB BLOOD ORDERAB LES Final Result Performing Organization Address City/State/[facility] Co de Phone Number [facility] [address] [place] [address] [phone] * Hematoxylin and Eosin Stain (09/30/2024 9:25 AM EDT) 09/30/2024 9:25 AM EDT 09/30/2024 9:45 AM EDT Narrative [facility] - 10/01/2024 1:51 PM EDT ----- ------- Name: David Gurrola Age/Sex: 59/M : 1965 Unit#: [id number] Attend Dr: Maryan Green MD Re09/30/24 Status: [facility] Location: [facility] Disch: ----- ------- SPEC : [id number] RECD: 09/30/24 STATUS: EUGENE SAUNDERS NUM: [id number] RIA: 09/30/[address] [facility] [address]: Maryan Green MD ENTERED: 09/30/24 [...] in toto in a cassette labeled B. CEDS IHC S/NG Disclaimer NOTE: Unless otherwise stated, all tissue is formalin-fixed and paraffin-embedded. Some or all of the immunohistochemical tests reported herein may have been developed and their performance characteristics determined by [facility]. They have not been cleared or approved by the U.S. Food and Drug Administration (FDA). However, the FDA has determined that such clearance or approval is not necessary. This laboratory is certified under the Clinical Laboratory Improvement Amendments of 1988 (CLIA) as qualified CONTINUED ON NEXT PAGE ----- ------- Name: David Gurrola Age/Sex: 59/M : 1965 Unit#: [id number] Attend Dr: Maryan Green MD Re09/30/24 Status: [facility] Location: [facility] Disch: ----- ------- SPEC : [id number] RECD: 09/30/24 STATUS: EUGENE NICKY NUM: [id number] RIA: 09/30/[address] [facility] [address]: Maryan Green MD ENTERED: 09/30/24 SP TYPE: Surgical OTHR DR: Celia Torres MD ORDERED: HE Stain/6, Gross Micro L4/2 IHC S/NG Disclaimer (Continued) to perform high complexity clinical laboratory testing. Copies To: Cleia Torres MD [address] [address] Maryan Green MD [facility] [address] [place] [address] [id number] [email or web address] ----- ------- Signed (signature on file) Rj Guillen MD 10/01/24 1351 ----- ------- END OF REPORT [email or web address] External Data Provider LAB BLOOD ORDERAB LES Final Result [facility] [address] [place] [phone] * (ABNORMAL) Glucose, Whole Blood (09/30/2024 8:06 AM EDT) [facility] Glucose, Whole Blood 163(H) 60 - 115 mg/dL [facility] Comment:METER #: [id number] 09/30/2024 8:06 AM EDT 09/30/2024 8:09 AM EDT [email or web address] External Data Provider LAB BLOOD ORDERAB LES Final Result Performing Organization Address [facility]/ZIP Co de Phone Number [facility] [address] [place] [address] [phone] * OCT, Optic Nerve - OU - Both Eyes (09/27/2024 10:44 AM EDT) Narrative Teressa Velazquez, OD - 09/27/2024 10:44 AM EDT Images [...] Homocysteine 8.2 < or = 15.2 umol/L [facility] Comment:Homocysteine is incr eased by functional deficiency offolate or vitamin B12. Testing for methylmalonic aciddifferentiates between these deficiencies. Other causesof increased homocysteine include renal failure, folateantagonists such as methotrexate and phenytoin, andexposure to nitrous oxide.Obdulia Sal et al., Debora [facility]wood Sawyer Med. 1999;131(5):331-9.THIS TEST WAS PERFORMED AT:[facility] [place] [id number] MEDELLIN MD Blood Venous blood specimen / Unknown 09/27/2024 10:38 AM EDT 09/27/2024 10:38 AM EDT Teressa Velazquez OD LAB BLOOD ORDERABLES Final Resu lt [facility] [address] [place] [phone] * (ABNORMAL) Vitamin B12/Folate, Serum Panel (09/27/2024 9:58 AM EDT) Vitamin B12 1,167(H) 200 - 900 pg/mL [facility] Comment:NORMAL 200-900 PG/ML INDETERMINATE 160-199 PG/ML DEFICIENT < 160 PG/ML Folate 14.5 > or = 4.0 ng/mL [facility] Comment:Reference Values:> o r = 4.0 ng/mL< 4.0 ng/mL suggests folate deficiency Methotrexate, aminopterin and folinic acid(leucovorin) are chemotherapeutic agents whose molecularstructures are similar to folate; therefore, the Architectfolate assay cannot be used for patients using these drugs. Blood Venous blood specimen / Unknown 09/27/2024 9:58 AM EDT 09/27/2024 11:22 AM EDT Teressa Velazquez OD LAB BLOOD ORDERABLES Final Resu lt [facility] [address] [place] [phone] * (ABNORMAL) CBC auto differential (09/27/2024 9:58 AM EDT) White Blood Count 6.1 4.8 - 10.8 X10*3/uL [facility] Red Blood Count 5.98(H) 4.60 - 5.80 X10*6/uL [facility] Hemoglobin 16.2 14.0 - 18.0 g/dl [facility] Hematocrit 49.3 42.0 - 52.0 % [facility] Mean Corpuscular Volume 82.4 80.0 - 98.0 fL [facility] Mean Corpuscular Hemoglobin 27.1 27.0 - 33.0 pg [facility] Mean Corpuscular HGB Conc 32.9 31.0 - 36.0 g/dl [facility] Red Cell Distribution Width 13.3 11.0 - 16.0 % [facility] Platelet Count 165 160 - 400 X10*3/uL [facility] Mean Platelet Volume 10.9 9.4 - 12.4 fL [facility] Neutrophils Percent Auto 58.6 45 - 73 % [facility] Imm Gran Pct Auto 0.8(H) 0.0 - 0.4 % [facility] Lymphocytes Percent Auto 30.9 20 - 40 % [facility] Monocytes Percent Auto 6.1 2 - 11 % [facility] Eosinophils Percent Auto 3.3 0 - 4 % [facility] Basophils Percent Auto 0.3 0 - 2 % [facility] NRBC Pct Auto 0.0 0.0 - 0.2 /100WBC [facility] Neutrophils Absolute Auto 3.6 2.0 - 8.3 x10*3/uL [facility] Imm Gran Abs Auto 0.05(H) 0.00 - 0.03 X10*3/uL [facility] Lymphocytes Absolute Auto 1.9 1.2 - 4.9 X10*3/uL [facility] Monocytes Absolute Auto 0.4 0.1 - 1.2 X10*3/uL [facility] Eosinophils Absolute Auto 0.2 0.0 - 0.4 X10*3/uL [facility] Basophils Absolute Auto 0.0 0.0 - 0.2 X10*3/uL [facility] NRBC Abs Auto 0.000 0.0 - 0.012 X10*3/uL [facility] Blood Venous blood specimen / Unknown 09/27/2024 9:58 AM EDT 09/27/2024 11:22 AM EDT Teressa Velazquez OD LAB BLOOD ORDERABLES Final Resu lt [facility] [address] [place] [phone] * Methylmalonic Acid (09/27/2024 9:58 AM EDT) Methylmalonic Acid 95 69 - 390 nmol/L [facility] Comment: Serum methylmalonic acid (MMA) [...] outcomes,such as neural tube defects and intrauterine growthrestriction.[employer] utilized Multi-Modal Decomposition(MMD) analysis to establish first and second trimester-specific MMA reference intervals in , as givenbelow:MMA, First trimester (<13 wks gestation): 58-167 nmol/LMMA, Second trimester (13-23 wks gestation):63-241 nmol/LThis test was developed and its analytical performancecharacteristics have been determined by [employer]. It has not been cleared or approved by theA. This assay has been validated pursuant to the CLIAregulations and is used for clinical purposes.THIS TEST WAS PERFORMED AT:[employer]/[facility] [place] [address]ZTQSHVZARIC ALEXIS MD,PHD Blood Venous blood specimen / Unknown 09/27/2024 9:58 AM EDT 09/27/2024 11:22 AM EDT us Teressa Velazquez OD LAB BLOOD ORDERABLES Final Resu lt Performing Organization Address [facility] Co de Phone Number [facility] [address] [place] [phone] * BUN (Blood Urea Nitrogen) (09/27/2024 9:58 AM EDT) Urea Nitrogen (BUN) 10 9 - 16 mg/dL [facility] 09/27/2024 9:58 AM EDT 09/27/2024 11:12 AM EDT Generic External Data Provider LAB BLOOD ORDERAB LES Final Result Performing Organization Address [facility]/ZIP Co de Phone Number [facility] [address] [place] [address] [phone] * (ABNORMAL) Comprehensive metabolic panel (09/27/2024 9:58 AM EDT) Sodium 138 135 - 145 mmol/L [facility] Potassium 4.2 3.3 - 5.1 mmol/L [facility] Chloride 103 96 - 108 mmol/L [facility] Carbon Dioxide 29 22 - 29 mmol/L [facility] Anion Gap 10(L) 12 - 20 [facility] Urea Nitrogen (BUN) 11 9 - 16 mg/dL [facility] Creatinine, Serum 0.67 0.5 - 1.4 mg/dL [facility] Estimated Glomerular Filt Rate >60 [facility] Comment:Chronic Kidney Disea se: Estimated GFR < 60 mL/min/[id number] Kidney Disease: Estimated GFR < 15 mL/min/1.73m2 Glucose 243(H) 60 - 115 mg/dL [facility] Calcium 9.2 8.4 - 10.2 mg/dL [facility] Bilirubin, Total 0.7 0.0 - 1.0 mg/dL [facility] Aspartate Amino Transferase 26 5 - 37 U/L [facility] Alanine Aminotransferase 33 0 - 40 U/L [facility] Total Protein 6.9 6.5 - 8.0 g/dL [facility] Albumin Level 4.3 3.5 - 5.0 g/dL [facility] Alkaline Phosphatase 83 39 - 117 U/L [facility] Blood Venous blood specimen / Unknown 09/27/2024 9:58 AM EDT 09/27/2024 11:22 AM EDT us Teressa Velazquez OD LAB BLOOD ORDERABLES Final Resu lt [facility] [address] [place] [phone] * (ABNORMAL) Lipid Panel, Standard (07/22/2024 8:06 AM EDT) Triglycerides 52 <150 mg/dL [facility] Comment:Desirable Triglyceri de: less than 150 mg/dLBorderline High Triglyceride 150-199 mg/dLHigh Triglyceride: 200-499 mg/dLVery High Triglyceride: greater than or equal to 5OO mg/dL Cholesterol 109 <200 mg/dL [facility] Comment:Desirable Cholestero l: less than 200 mg/dLBorderline High Cholesterol: 200-239 mg/dLHigh Cholesterol: greater than 239 mg/dL LDL Cholesterol Calculated 68 <100 mg/dL [facility] Comment:Desirable LDL: less than 100 mg/dLNear Optimal/Above Optimal LDL: 110- 129 mg/dLBorderline High LDL: 130-159 mg/dLHigh LDL: 160-189 mg/dLVery High LDL: greater than or equal to 190 mg/dL HDL Cholesterol 31(L) >40 mg/dL [facility] Comment:Desirable HDL: great er than 40 mg/dL Note: This HDL assay may give artificially low results in patients with liver disease. Blood Venous blood specimen / Unknown 07/22/2024 8:06 AM EDT 07/22/2024 8:06 AM EDT us Celia Torres MD LAB BLOOD ORDERABLES Final Resul t [facility] [address] [place] [phone] * (ABNORMAL) Cologuard?? colon cancer screening (02/10/2024 6:22 AM EST) Cologuard Result Positive( A) Negative 02/17/2024 8:49 PM EST [facility] (CLIA #:[id number]) Comment: POSITIVE TEST RESULT. A positive Cologuard [...] (Rachele Tejeda al, N Engl J Med 2014;370(14):5623-7722.) Cologuard may produce a false negative or false positive result (no colorectal cancer or precancerous polyp present at colonoscopy follow up). A negative Cologuard test result does not guarantee the absence of CRC or advanced adenoma (pre-cancer). The current Cologuard screening interval is every 3 years. ([place] [employer] and U.S. Multi-Society Task Force). Cologuard performance data in a 10,000 patient pivotal study using colonoscopy as the reference method can be accessed at the following location: [email or web address]. Additional description of the Cologuard test process, warnings and precautions can be found at [email or web address]. Stool specimen (specimen) 02/10/2024 6:22 AM EST 02/11/2024 12:14 PM EST Celia Torres MD LAB MOLECULAR DIAGNOSTICS ORDERA BLES Final Result [facility] (CLIA #:[id number]) [address] [place] [address], * (ABNORMAL) ALBUMIN, RANDOM URINE W/CREATININE (04/27/2021 9:00 AM EST) Microalbumin Urine 1.2 See Note: mg/dL [facility] Comment: Reference Range: Reference Range Not established Microalb/Creat Ratio 41(H) <30 mcg/mg creat [facility] Comment: The ADA defines abnormalities [...] Creatinine, Urine 29 20 - 320 mg/dL [facility] 04/27/2021 9:00 AM EST us Celia Torres MD LAB URINE ORDERABLES Final Resul t [facility] [address] [place] [address], from Last 3 Months or Most Recently Relevant to Health Maintenance Insurance [facility] STANDARD MEDICARE DENTAL-[facility] MEDICAID STAND ADULT Care Teams Java Designer Relationship Specialty Start Date End Date Celia Torres MD [address] [place] [address] PCP - General Family Medicine 03/10/12 Danielle Kaufman OD [address] [place] [address] Optometry 09/03/18 Larissa Trujillo DDS [address] [place], [place] Resident Dental Extension Associate 05/23/13 Obdulia Restrepo [address] [place] [address] Dr [address] [place] [address] Division Supervisor 05/27/23 Dustin Falcon MD [address] [place] [address] Dr [address] [place] [address] Orthopaedic Surgery 04/08/23 Belinda Sears MD [address] [place] [address] [address] [place] [address] Referring Physician Family Medicine 07/23/23 Dipak Urban MD [address] [place] [address] Surgeon General Surgery 04/17/23 Hiren Radford MD [address] [place] [address] Respite Worker Cardiology 09/03/18 Serjio Christianson MD [address] [place], [place] [address] Vascular 01/26/24
--- OUTSIDE RECORDS SUMMARY | 2024-12-08 12:15 | XMS_ITS | Encounter Summary ---
Author Organization [employer] Address [address] [place] [address] [address]t [place] [address] Care Team Providers Care Belt Press Operator Name Role Phone Celia Torres MD Primary Care Provider Danielle Kaufman OD Unavailable [phone] Larissa Trujillo DDS Unavailable Unavailabl e Obdulia Restrepo Unavailable [phone] Dustin Falcon MD Unavailable Belinda Sears MD Unavailable [phone] Dipak Urban MD Unavailable [phone] Hiren Radford MD Unavailable Reason for Visit * Reason Onset Date Comments triage 05/15/2022 Encounter Details Date Type Department Care Team (Late st Contact Info) Description 05/15/2022 Telephone [facility] [address] [place] [address] Celia Torres MD [address] [place], [place] [id number] triage Social History Tobacco Use Types Packs/Day [...] returned to patient who does not need plasterer maintenance. Patient reports that he is having a [...] self and will access emergent care at [facility] now. Reviewed with pt to contact [...] Description 12/29/2024 2:00 PM EDT Office Visit [facility] OPTOMETRY [address] [place] [address] Teressa Velazquez, OD [address] [place] [address] documented as of this encounter Visit Diagnoses Not on filedocumented in this encounter Care Teams Belt Press Operator Relationship Specialty Start Date End Date Celia Torres MD [address] [place] [address] PCP - General Family Medicine 03/10/12 Danielle Kaufman OD [address] [place] [address] Optometry 09/03/18 Larissa Trujillo DDS [address] [place] [address] Resident Dental Quality Head 05/23/13 Obdulia Restrepo [address] [place] [address] [address] [place] [address] Log Sawyer 05/27/23 Dustin Falcon MD [address] [place] [address] Dr [address] [place] [address] Orthopaedic Surgery 04/08/23 Belinda Sears MD [address] [facility] [address] [place] [address] Referring Physician Family Medicine 07/23/23 Dipak Urban MD [address] [place] [address] Drive 3rd [place] [address] Surgeon General Surgery 04/17/23 Hiren Radford MD [address] [place] [address] Office Assistance Cardiology 09/03/18 Serjio Christianson MD [address] [place] [address] Vascular 01/26/24 documented as of this encounter
--- OUTSIDE RECORDS SUMMARY | 2024-12-08 12:15 | XMS_ITS | Encounter Summary ---
Author Organization [facility] Address [address] [place] [address] Care Team Providers Care Shirt Turner Name Role Phone Ramon West MD Unavailable [phone] Ramon West MD Primary Care Provider [phone] Reason for Visit * Reason Comments Medication Refill Encounter Details Date Type Department Care Team (Late st Contact Info) Description 10/09/2022 Refill [facility] Cardiothoracic Surgery [address] [phone] Kasia Casas PA-C [address] [address] Hypertension, unspecified type Social History [...] place to sleep or slept in a chcf (including now)? No 08/26/2022 Sex and Gender [...] type documented in this encounter Care Teams Shirt Turner Relationship Specialty Start Date End Date Ramon West MD [address] [place] [address] PCP - General Surgery, Cardiac 10/09/22 Ramon West MD [address] [address] Surgery, Cardiac 08/26/22 Hiren Radford [address] [place] [address] Tender Labor Cardiovascular Disease 10/02/22 [facility] [address] [place] [address] Primary Care Provider General Medicine 10/02/22 documented as of this encounter
--- OUTSIDE RECORDS SUMMARY | 2024-12-08 12:15 | XMS_ITS | Encounter Summary ---
Author Organization [email or web address] Address [address] [place] [address] [address] [place] [address] Care Team Providers Care Diamond Sizer Name Role Phone Celia Torres MD Primary Care Provider [phone] Danielle Kaufman OD Unavailable [phone] Larissa Trujillo DDS Unavailable Unavailabl e Obdulia Restrepo Unavailable [phone] Dustin Falcon MD Unavailable Belinda Sears MD Unavailable [phone] Dipak Urban MD Unavailable Hiren Radford MD Unavailable [phone] Encounter Details Date Type Department Care Team (Late st Contact Info) Description 04/18/2022 Orders Only [facility] MED & PEDS [address] [place], [place] [phone] Sherice Lozano LPN Social History Tobacco Use [...] Description 12/29/2024 2:00 PM EDT Office Visit [facility] OPTOMETRY [address] [place], [place] [phone] Tarka, Teressa, OD [address] [place] [address] Pending Results Name Type Priority Associated Diagnoses [...] EDT) Ova and Parasite Trichrome SEE NOTE [facility] Comment: OVA AND PARASITES, CONC AND PERM SMEAR Micro Number: [id number] Test Status: Final Specimen Source: Stool Specimen [...] infection. For additional information, please refer to https://education.[employer]/faq/VAA881 (This link is being provided for informational/ educational purposes only.)THIS TEST WAS PERFORMED AT:[facility] [address] [place] [id number] JUDSON,MD 08/24/2022 7:59 PM EDT 08/24/2022 8:24 PM EDT us [facility] Exter nal Provider LAB MICROBIOLOGY - GENERAL ORDERABLES Final Result [facility] [address] [place] [address] [phone] * Acid-Fast Smear (08/24/2022 6:10 PM EDT) 08/24/2022 6:10 PM EDT 08/24/2022 6:24 PM EDT Comment:Sputum Narrative [facility] - 10/23/2022 2:15 PM EDT Acid-Fast Smear Acid-Fast Smear Acid-Fast Smear No acid-fast bacilli seen. Testing performed at: [address] [address] Acid-Fast Culture null Acid-Fast Culture null Acid-Fast Culture null Acid-Fast Culture null Acid-Fast Culture null Specimen Source: Sputum [facility] Exter nal Provider LAB MICROBIOLOGY - GENERAL ORDERABLES Final Result Performing Organization Address City/[facility] Co de Phone Number [facility] [address] [place] [phone] * Type and screen (08/24/2022 4:17 PM EDT) Blood Type OP [facility] Antibody Screen NEGATIVE [facility] 08/24/2022 4:17 PM EDT 08/24/2022 4:27 PM EDT [facility] External Provider LAB BLO OD BANK TEST ORDERABLES Final Result Performing Organization Address City/[facility]/ZIP Co de Phone Number [facility] [address] [place] [address] [phone] * (ABNORMAL) Prothrombin Time-INR (08/24/2022 4:17 PM EDT) Prothrombin Time 15.0(H) 10.0 - 13.1 SEC [facility] INTERNATIONAL NORM RATIO 1.3(H) 0.9 - 1.1 [facility] Comment:INTERNATIONAL NORMAL IZED RATIO (INR) REFERENCE [...] 4:17 PM EDT 08/24/2022 4:25 PM EDT [facility] External Provider LAB BLO OD ORDERABLES Final Result Performing Organization Address [facility] Co de Phone Number [facility] [address] [place] [phone] * Gram stain (08/24/2022 2:43 PM EDT) 08/24/2022 2:43 PM EDT 08/24/2022 2:45 PM EDT Comment:Sputum Narrative [facility] - 08/27/2022 9:28 AM EDT Gram [...] Staph Aureus: Vancomycin 1(S) Specimen Source: Sputum [facility] Exter nal Provider LAB MICROBIOLOGY - GENERAL ORDERABLES Final Result Performing Organization Address [facility] Co de Phone Number [facility] [address] [place] [phone] * Gastrointestinal panel (08/24/2022 12:11 PM EDT) Campylobacter Not Detected Not Detect. [facility] Plesiomonas shigelloides Not Detected Not Detect. [facility] Salmonella Not Detected Not Detect. [facility] Vibrio Not Detected Not Detect. [facility] Vibrio cholerae Not Detected Not Detect. [facility] YERSINIA ENTEROCOLITICA Not Detected Not Detect. [facility] Enteroaggregative E. coli (EAEC) Not Detected Not Detect. [facility] Enteropathogenic E. coli (EPEC) Not Detected Not Detect. [facility] Enterotoxigenic E. coli (ETEC) lt/st Not Detected Not Detect. [facility] Shiga-like toxin-producing E. coli (STEC) stx1/stx2 Not Detected Not Detect. [facility] E coli O157 Not applicable Not Detect. [facility] Comment:E. coli containing t he O157 antigen are a subset ofShiga-like toxin- producing E. coli (STEC). Shigella/Enteroinvasive E. coli (EIEC) Not Detected Not Detect. [facility] Cryptosporidium Not Detected Not Detect. [facility] Cyclospora cayetanensis Not Detected Not Detect. [facility] Entamoeba histolytica Not Detected Not Detect. [facility] Giardia lamblia Not Detected Not Detect. [facility] Adenovirus F 40/41 Not Detected Not Detect. [facility] Astrovirus Not Detected Not Detect. [facility] Norovirus GI/GII Not Detected Not Detect. [facility] Rotavirus A Not Detected Not Detect. [facility] Sapovirus Not Detected Not Detect. [facility] Comment: All results must be correlated [...] assay is performed by Multiplexed PCR, utilizing [employer] Blaze Array. 08/24/2022 12:1 1 PM EDT 08/24/2022 12:15 PM EDT [facility] Provider LAB MICROBIOLOGY - GENERAL ORDERABLES Final Result Performing Organization Address [facility] Co de Phone Number [facility] [address] [place] [phone] * CDiff Gene PCR (08/24/2022 12:11 PM EDT) CDiff Gene PCR NEGATIVE Negative [facility] Comment:If C. difficile stro ngly suspected despite one negativetest, a second test may be sent vs. empiric treatment forC. difficile infection. 08/24/2022 12:1 1 PM EDT 08/24/2022 12:15 PM EDT [facility] Exter nal Provider LAB BODY FLUIDS AND STOOLS ORDERABLES Final Result Performing Organization Address [facility] Co de Phone Number [facility] [address] [place] [phone] * Blood Culture (Second) (08/24/2022 11:14 AM EDT) 08/24/2022 11:1 4 AM EDT 08/24/2022 11:20 AM EDT Comment:Blood Narrative [facility] - 08/26/2022 8:15 AM EDT Blood [...] Culture (Second) Gram stain reviewed by a Obstetrics Technician Staphylococcus aureus Refer [facility] ORG #1: Susceptibility testing of same organism(s) from Refer [facility] similar site will not be repeated within 4 days. Results of Blood Culture gram stain called to and read back by EMILEE at 2113 on 08/24/22 by RADHA. Specimen Source: Blood [facility] Exter nal Provider LAB MICROBIOLOGY - GENERAL ORDERABLES Final Result Performing Organization Address City/State/[facility] Co de Phone Number [facility] [address] [place] [phone] * Blood Culture (First) (08/24/2022 11:13 AM EDT) 08/24/2022 11:1 3 AM EDT 08/24/2022 11:17 AM EDT Comment:Blood Narrative [facility] - 08/26/2022 8:14 AM EDT Blood [...] Culture (First) Gram stain reviewed by a Obstetrics Technician Staphylococcus aureus Results of Blood Culture gram stain called to and read back by EMILEE at 2117 on 08/24/22 by RADHA. Staphylococcus aureus: Clindamycin <=0.25(S) Staphylococcus aureus: Erythromycin <=0.25(S) Staphylococcus aureus: Levofloxacin <=0.12(S) Staphylococcus aureus: Oxacillin 0.5(S) Staphylococcus aureus: Penicillin-G >=0.5(R) Staphylococcus aureus: Tetracycline <=1(S) Staphylococcus aureus: Trimethoprim/Sulfamethoxazole <=10(S) Specimen Source: Blood [facility] Exter nal Provider LAB MICROBIOLOGY - GENERAL ORDERABLES Final Result Performing Organization Address [facility] Co de Phone Number [facility] [address] [place] [phone] * Magnesium (08/24/2022 11:13 AM EDT) Magnesium 1.6 1.6 - 2.6 mg/dL [facility] 08/24/2022 11:1 3 AM EDT 08/24/2022 11:17 AM EDT [facility] External Provider LAB BLO OD ORDERABLES Final Result Performing Organization Address [facility] de Phone Number [facility] [address] [place] [phone] * Lactic Acid (08/24/2022 11:13 AM EDT) Lactic Acid 1.8 0.5 - 2.0 mmol/L [facility] 08/24/2022 11:1 3 AM EDT 08/24/2022 11:17 AM EDT [facility] External Provider LAB BLO OD ORDERABLES Final Result Performing Organization Address [facility] de Phone Number [facility] [address] [place] [phone] * SARS-CoV-2 RNA, Influenza A/B, and RSV RNA, Ql NAAT (08/24/2022 10:43 AM EDT) Influenza A PCR NEGATIVE Negative [facility] Influenza B PCR NEGATIVE Negative [facility] Resp Syncy Virus RNA Qual PCR NEGATIVE Negative [facility] SARS COV2 PCR NEGATIVE Negative [facility] Comment:All test results mus t be [...] use by authorized laboratories.Testing performed on the [employer] GeneXpert utilizingreal-time RT-PCR.All SARS CoV2 and positive influenza A/B results arereported to [facility]. 08/24/2022 10:4 3 AM EDT 08/24/2022 10:46 AM EDT [facility] Exter nal Provider LAB MICROBIOLOGY - GENERAL ORDERABLES Final Result Performing Organization Address [facility]/ZIP Co de Phone Number [facility] [address] [place] [phone] * Lipase (08/24/2022 10:33 AM EDT) Pathologist [facility] Lipase 26 8 - 78 U/L [facility] 08/24/2022 10:3 3 AM EDT 08/24/2022 10:38 AM EDT [facility] External Provider LAB BLO OD ORDERABLES Final Result Performing Organization Address [facility] Co de Phone Number [facility] [address] [place] [phone] * (ABNORMAL) Comprehensive Metabolic Panel (08/24/2022 10:33 AM EDT) Pathologist [facility] Sodium 138 135 - 145 mmol/L [facility] Potassium 3.6 3.3 - 5.1 mmol/L [facility] Chloride 104 96 - 108 mmol/L [facility] Carbon Dioxide 23 22 - 29 mmol/L [facility] Anion Gap 15 12 - 20 [facility] Urea Nitrogen (BUN) 13 9 - 16 mg/dL [facility] Creatinine, Serum 1.33 0.5 - 1.4 mg/dL [facility] Creatinine Clr Calc Pharmacy 67.2 [facility] Comment:eGFR (calculated fro m the MDRD study equation) and eCrCl(calculated from the Cockcroft-Gault equation) are based ondifferent parameters and may not yield comparable results.If eCrCl result is absurd, please check patient'sheight/weight. Estimated Glomerular Filt Rate 55 [facility] Comment:NOTE: For -Am erican individuals, multiply the result by 1.210.Chronic Kidney Disease: Estimated GFR < 60 mL/min/[id number] Kidney Disease: Estimated GFR < 15 mL/min/1.73m2 Glucose 264(H) 60 - 115 mg/dL [facility] Calcium 9.5 8.4 - 10.2 mg/dL [facility] Bilirubin, Total 0.8 0.0 - 1.0 mg/dL [facility] Aspartate Amino Transferase 32 5 - 37 U/L [facility] Alanine Aminotransferase 27 0 - 40 U/L [facility] Total Protein 6.5 6.5 - 8.0 g/dL [facility] Albumin Level 3.9 3.5 - 5.0 g/dL [facility] Alkaline Phosphatase 68 39 - 117 U/L [facility] 08/24/2022 10:3 3 AM EDT 08/24/2022 10:38 AM EDT us [facility] External Provider LAB BLO OD ORDERABLES Final Result [facility] [address] [place] [address] [phone] * (ABNORMAL) Complete Blood Count Manual Diff (08/24/2022 10:33 AM EDT) White Blood Count 9.4 4.8 - 10.8 X10*3/uL [facility] Red Blood Count 5.40 4.60 - 5.80 X10*6/uL [facility] Hemoglobin 15.7 14.0 - 18.0 g/dl [facility] Hematocrit 46.5 42.0 - 52.0 % [facility] Mean Corpuscular Volume 86.1 80.0 - 98.0 fL [facility] Mean Corpuscular Hemoglobin 29.1 27.0 - 33.0 pg [facility] Mean Corpuscular HGB Conc 33.8 31.0 - 36.0 g/dl [facility] Red Cell Distribution Width 12.7 11.0 - 16.0 % [facility] Platelet Count 130(L) 160 - 400 X10*3/uL [facility] Mean Platelet Volume 11.2 9.4 - 12.4 fL [facility] NRBC Pct Auto 0.0 0.0 - 0.2 /100WBC [facility] NRBC Abs Auto 0.000 0.0 - 0.012 X10*3/uL [facility] Neutrophils % Manual 57 45 - 73 % [facility] Band Neutrophils Percent 30(H) 3 - 5 % [facility] Comment:Results of BANDS ousmane led to ILENE on 08/24/22at 1115 by MARLON. Lymphocytes Percent Manual 7(L) 20 - 40 % [facility] Monocytes Percent Manual 6 2 - 11 % [facility] NEUTROPHILS ABSOLUTE MANUAL 8.2 2.0 - 8.3 X10*3/uL [facility] LYMPHOCYTES ABSOLUTE MANUAL 0.7(L) 1.2 - 4.9 X10*3/uL [facility] MONOCYTES ABSOLUTE MANUAL 0.6 0.1 - 1.2 X10*3/uL [facility] Platelet Estimate DECREASED NORMAL [facility] Large Platelet PRESENT [facility] Plate[facility] Morphology Comment NOTED [facility] RBC Morphology NORMAL [facility] Toxic Vacuolation PRESENT [facility] Dohle Bodies PRESENT [facility] 08/24/2022 10:3 3 AM EDT 08/24/2022 10:38 AM EDT [facility] External Provider LAB BLO OD ORDERABLES Final Result Performing Organization Address [facility] Phone Number [facility] [address] [place] [phone] * HIGH SENSITIVITY TROPONIN I (05/15/2022 12:01 PM EST) Pathologist [facility] TROPONIN I HIGH SENSITIVITY 3.5 <3.5 - 35.0 ng/L [facility] Comment:The Sebastian high sens itivity Troponin-I results should beused in conjunction with other diagnostic information suchas ECG, clinical observations and information, and patientsymptoms to aid in the diagnosis of MO. 05/15/2022 12:0 1 PM EST 05/15/2022 12:04 PM EST [facility] External Provider LAB BLO OD ORDERABLES Final Result Performing Organization Address [facility] Number [facility] [address] [place] [phone] * COVID-19 ID NOW (SEBASTIAN) (05/15/2022 12:01 PM EST) Pathologist [facility] IDNOW SERIAL# [id number] [facility] COVID-19 TEST Negative Negative [facility] COVID-19 NOTE See Note [facility] Comment: Results are for the identification of SARS-CoV2 RNA. TheSARS-CoV2 RNA is generally detectable in respiratory samplesduring the acute phase of infection. Positive results areindicative of the presence of SARS-CoV-2 RNA; clinicalcorrelation with patient history and other diagnosticinformation is necessary to determine patient infectionstatus. Positive results do not rule out bacterial infectionor co- infection with other viruses.Testing facilities within the [facility] and [facility] are required to report all positive [...] use by authorized laboratories.Testing performed on the [employer] NOW utilizing NAAT. 05/15/2022 12:0 1 PM EST 05/15/2022 12:04 PM EST [facility] Exter nal Provider LAB MOLECULAR DIAGNOSTICS ORDERABLES Final Result Performing Organization Address [facility]/ZIP Co de Phone Number [facility] [address] [place] [phone] * Magnesium (05/15/2022 12:01 PM EST) Pathologist [facility] Magnesium 2.0 1.6 - 2.6 mg/dL [facility] 05/15/2022 12:0 1 PM EST 05/15/2022 12:04 PM EST [facility] External Provider LAB BLO OD ORDERABLES Final Result Performing Organization Address [facility] Co de Phone Number [facility] [address] [place] [phone] * (ABNORMAL) Basic Metabolic Panel (05/15/2022 12:01 PM EST) Pathologist [facility] Sodium 143 135 - 145 mmol/L [facility] Potassium 4.5 3.3 - 5.1 mmol/L [facility] Chloride 103 96 - 108 mmol/L [facility] Carbon Dioxide 27 22 - 29 mmol/L [facility] Anion Gap 18 12 - 20 [facility] Urea Nitrogen (BUN) 14 9 - 16 mg/dL [facility] Creatinine, Serum 0.90 0.5 - 1.4 mg/dL [facility] Creatinine Clr Calc Pharmacy 104.5 [facility] Comment:eGFR (calculated fro m the MDRD study equation) and eCrCl(calculated from the Cockcroft-Gault equation) are based ondifferent parameters and may not yield comparable results.If eCrCl result is absurd, please check patient'sheight/weight. Estimated Glomerular Filt Rate >60 [facility] Comment:NOTE: For -Am erican individuals, multiply the result by 1.210.Chronic Kidney Disease: Estimated GFR < 60 mL/min/[id number] Kidney Disease: Estimated GFR < 15 mL/min/1.73m2 Glucose 183(H) 60 - 115 mg/dL [facility] Calcium 9.8 8.4 - 10.2 mg/dL [facility] 05/15/2022 12:0 1 PM EST 05/15/2022 12:04 PM EST us [facility] External Provider LAB BLO OD ORDERABLES Final Result [facility] [address] [place] [phone] * (ABNORMAL) Hepatic Function Panel (05/15/2022 12:01 PM EST) Bilirubin, Total 0.5 0.0 - 1.0 mg/dL [facility] Bilirubin, Direct <0.2 0.0 - 0.5 mg/dL [facility] Aspartate Amino Transferase 50(H) 5 - 37 U/L [facility] Alanine Aminotransferase 59(H) 0 - 40 U/L [facility] Total Protein 6.9 6.5 - 8.0 g/dL [facility] Albumin Level 4.4 3.5 - 5.0 g/dL [facility] Alkaline Phosphatase 109 39 - 117 U/L [facility] 05/15/2022 12:0 1 PM EST 05/15/2022 12:04 PM EST [facility] External Provider LAB BLO OD ORDERABLES Final Result [facility] [address] [place] [phone] * (ABNORMAL) CBC auto differential (05/15/2022 12:01 PM EST) White Blood Count 8.0 4.8 - 10.8 X10*3/uL [facility] Red Blood Count 5.59 4.60 - 5.80 X10*6/uL [facility] Hemoglobin 16.2 14.0 - 18.0 g/dl [facility] Hematocrit 48.8 42.0 - 52.0 % [facility] Mean Corpuscular Volume 87.3 80.0 - 98.0 fL [facility] Mean Corpuscular Hemoglobin 29.0 27.0 - 33.0 pg [facility] Mean Corpuscular HGB Conc 33.2 31.0 - 36.0 g/dl [facility] Red Cell Distribution Width 13.0 11.0 - 16.0 % [facility] Platelet Count 202 160 - 400 X10*3/uL [facility] Mean Platelet Volume 11.1 9.4 - 12.4 fL [facility] Neutrophils Percent Auto 68.0 45 - 73 % [facility] Imm Gran Pct Auto 0.6(H) 0.0 - 0.4 % [facility] Lymphocytes Percent Auto 23.6 20 - 40 % [facility] Monocytes Percent Auto 6.5 2 - 11 % [facility] Eosinophils Percent Auto 1.0 0 - 4 % [facility] Basophils Percent Auto 0.3 0 - 2 % [facility] NRBC Pct Auto 0.0 0.0 - 0.2 /100WBC [facility] Neutrophils Absolute Auto 5.4 2.0 - 8.3 x10*3/uL [facility] Imm Gran Abs Auto 0.05(H) 0.00 - 0.03 X10*3/uL [facility] Lymphocytes Absolute Auto 1.9 1.2 - 4.9 X10*3/uL [facility] Monocytes Absolute Auto 0.5 0.1 - 1.2 X10*3/uL [facility] Eosinophils Absolute Auto 0.1 0.0 - 0.4 X10*3/uL [facility] [facility] Basophils Absolute Auto 0.0 0.0 - 0.2 X10*3/uL [facility] NRBC Abs Auto 0.000 0.0 - 0.012 X10*3/uL [facility] 05/15/2022 12:0 1 PM EST 05/15/2022 12:04 PM EST us [facility] External Provider LAB BLO OD ORDERABLES Final Result Performing Organization Address City/State/[facility] Co de Phone Number [facility] [address] [place] [address] [phone] documented in this encounter Visit Diagnoses Not on filedocumented in this encounter Care Teams Diamond Sizer Relationship Specialty Start Date End Date Celia Torres MD [address] [place] [address] PCP - General Family Medicine 03/10/12 Danielle Kaufman OD [address] [place] [address] Optometry 09/03/18 Larissa Trujillo DDS [address] [place] [address] Resident Dental Government Affairs Fellow 05/23/13 Obdulia Restrepo [address] [place] [address] [place] [address] Defensive Secondary Coach 05/27/23 Dustin Falcon MD [address] [place] [address] Dr [address] [place] [address] Orthopaedic Surgery 04/08/23 Belinda Sears MD 575 [facility] [address] [place] [address] Referring Physician Family Medicine 07/23/23 Dipak Urban MD [address] 3rd [place] [address] Surgeon General Surgery 04/17/23 Hiren Radford MD [address] [place] [address] Rand Butter Cardiology 09/03/18 Serjio Christianson MD [address] [place] [address] Vascular 01/26/24 documented as of this encounter
--- OUTSIDE RECORDS SUMMARY | 2024-12-08 12:15 | XMS_ITS | Clinical Summary ---
Author Organization [facility] Address [address] [place] [address] Care Team Providers Care Spear Fisher Name Role Phone Ramon West MD Unavailable Ramon West MD Primary Care Provider Allergies [...] place to sleep or slept in a residential (including now)? No 08/26/2022 Sex and Gender [...] this topic Medical Devices Implanted Type Area Outside Barrel Lathe Operator Device Identifier Shelf Expiration Date Model / Serial / Lot [id number] Graft Cv Glwv 10mm 30cm Abd Thrx Hydrolyzable Geltn Poly Wvn - [id number] Implanted:Qty: 1 on 08/26/2022 by Ramon West MD at [facility] Graft N/A: Aorta [employer] [id number] 05/07/2025 [id number] / [id number] 2 / [id number] Graft Vasc Glwv Vascutek 16mm 30cm Thor Abdominal Twl Wvn - [id number] Implanted:Qty: 1 on 08/27/2022 by Ramon West MD at [facility] Graft N/A: Aorta [employer] 10/05/2023 [id number] / [id number] / [id number] Patch Vasc [id number] Xenosure Bvn Pericard Sterl Disp - [id number] Implanted:Qty: 1 on 08/26/2022 by Ramon West MD at [facility] Tissue N/A: Aorta [employer] [id number] 03/04/2028 [id number] / 0000 / [id number] Description:Patch type, size , and expiration date [...] 9.0(H) <5.7 % 08/25/2022 3:47 AM EDT [facility] Comment: A1c% Interpretation 5.7 - 6.0 Increase risk of diabetes 6.1 - 6.4 Higher risk of diabetes > or = 6.5 Consistent with diabetes Diabetes Care, 33(Supp 1):S1-S61, 2010 Estimated Average Glucose 212 mg/dL 08/25/2022 3:47 AM EDT [facility] Blood specimen / Unknown 08/24/2022 11:29 PM EDT 08/24/2022 11:39 PM EDT us Ritesh Edwards MD LAB BLOOD ORDERABLES Final Result HOSPITAL LAB See Below [address] [id number] from Last 3 Months or Most Recently Relevant to Health Maintenance Insurance [facility] MEDICARE PART A & B MEDICARE PART A & B [facility] [address] Advance Directives Documents on File Type Date Recorded Patient Recruitment Internship Expl anation Advance Directive-Scan 10/07/2022 labs Advance [...] Child, Parent, Adult Sibling, Grandparent) Care Teams Spear Fisher Relationship Specialty Start Date End Date Ramon West MD [address] [phone] PCP - General Surgery, Cardiac 10/09/22 Ramon West MD [address] [address] Surgery, Cardiac 08/26/22 Hiren Radford [address] [place] [address] Division Controller Cardiovascular Disease 10/02/22 [facility] [address] [place] [address] Primary Care Provider General Medicine 10/02/22
--- OUTSIDE RECORDS SUMMARY | 2024-12-08 12:15 | XMS_ITS | Encounter Summary ---
Author Organization [employer] Address [address] [facility] 7t [place] [address] Care Team Providers Care Deck And Hull Assembler Name Role Phone Celia Torres MD Primary Care Provider [phone] Danielle Kaufman OD Unavailable [phone] Larissa Trujillo DDS Unavailable Unavailabl e Obdulia Restrepo Unavailable [phone] Dustin Falcon MD Unavailable Belinda Sears MD Unavailable [phone] Dipak Urban MD Unavailable Hiren Radford MD Unavailable [phone] Reason for Visit * Reason Comments Med Refill Encounter Details Date Type Department Care Team (Late st Contact Info) Description 02/10/2023 Refill [facility] MED & PEDS [address] [place], [place] [phone] Celia Torres MD [address] [place], [place] [phone] Chronic pain syndrome (Primary Dx) Social History [...] Description 12/29/2024 2:00 PM EDT Office Visit [facility] OPTOMETRY [address] [place], [place] [phone] Teressa Velazquez OD [address] [place] [address] documented as of this encounter Visit Diagnoses Diagnosis Chronic pain syndrome- Primary documented in this encounter Additional Health Concerns Assessment Noted Time PHQ-9 Depression Total Score: 1 07/10/19 23 10:12 AM EDT documented as of this encounter Care Teams Deck And Hull Assembler Relationship Specialty Start Date End Date Celia Torres MD [address] [place] [address] PCP - General Family Medicine 03/10/12 Danielle Kaufman OD [address] [place], [place] [phone] Optometry 5/30/19 Larissa Trujillo DDS [address] [place] [address] Resident Dental Booth Cleaner 05/23/13 Obdulia Restrepo [address] [place] [address] Huc Ob 05/27/23 Dustin Falcon MD [address] [place] [address] [address] [place] [address] Orthopaedic Surgery 04/08/23 Belinda Sears MD 575 [facility] [address] [place] [address] Referring Physician Family Medicine 07/23/23 Dipak Urban MD [address] 3rd [place] [address] Surgeon General Surgery 04/17/23 Hiren Radford MD [address] [place] [address] Adon Cardiology 09/03/18 Serjio Christianson MD [address] [place] [address] Vascular 01/26/24 documented as of this encounter
--- OUTSIDE RECORDS SUMMARY | 2024-12-08 12:15 | XMS_ITS | Encounter Summary ---
Author Organization [employer] Address 75 [facility] 7t [place] [address] Care Team Providers Care Mobile Phone Salesperson Name Role Phone Celia Torres MD Primary Care Provider [phone] Danielle Kaufman OD Unavailable [phone] Larissa Trujillo DDS Unavailable Unavailabl e Obdulia Restrepo Unavailable [phone] Dustin Falcon MD Unavailable Belinda Sears MD Unavailable [phone] Dipak Urban MD Unavailable Hiren Radford MD Unavailable [phone] Encounter Details Date Type Department Care Team (Late st Contact Info) Description 12/07/2024 Telephone [facility] MED & PEDS [address] [place], [place] [phone] Celia Torres MD [address] [place], [place] [phone] Social History Tobacco Use Types Packs/Day Years [...] AM EDT documented as of this encounter Functional Status * Over the past 2 weeks, how often have you been bothered by any of the following problems? Question Answer Date of Assessment Author Patient Health Questionnaire -2 Score 0 12/07/2024 8:50 AM EDT Nettie Anderson MA * Little interest or pleasure in doing things Answer Date of Assessment Author Not at all 12/07/2024 8:50 AM EDT Ursula Anderson MA * Feeling down, depressed, [...] Author Not at all 12/07/2024 8:50 AM EDT Ursula Anderson MA * Feeling bad about yourself - or that you are a failure or have let yourself or your family down Answer Date of Assessment Author Not at all 12/07/2024 8:50 AM EDT Ursula Anderson MA * Trouble concentrating on things, such as reading the newspaper or watching television Answer Date of Assessment Author Not at all 12/07/2024 8:50 AM EDT Ursula Anderson MA * Moving or speaking so slowly that other people could have noticed? Or the opposite - being so fidgety or restless that you have been moving around a lot more than usual. Answer Date of Assessment Author Not at all 12/07/2024 8:50 AM JUSTINOT Ursula Anderson MA * Thoughts that you would be better off or hurting yourself in some way Answer Date of Assessment Author Not at all 12/07/2024 8:50 AM EDT Ursula Anderson MA * Patient Health Questionnaire-9 Score Answer Date of Assessment Author 2 12/07/2024 8:50 AM JUSTINOT Ursula Anderson MA * How difficult have these problems made it for you to do your work, take care of things at home, or get along with other people? Answer Date of Assessment Author Not difficult at all 12/07/2024 8:50 AM EDT Nettie Carrasco MA documented as of this encounter Miscellaneous Notes * Telephone Encounter - Celia Torres MD - 12/08/2024 11:27 AM EDT He is supposed to but refuses to * Telephone Encounter - Paula Polanco RN - 12/07/2024 2:01 PM EDT TC from [facility] pharm. Stated patient walked in to pharm and stated that he is only suppose to be taking Jardiance, Asprin, and Vitamin B 12. Patient uses med boxes, but has not picked up medication since October 2024. Pharm was reaching out to provider for an FYI and next steps. TC to patient. No answer. Left message to return call to office. documented in this encounter Plan of Treatment Upcoming Encounters Date Type Department Care Team (Late st Contact Info) Description 12/29/2024 2:00 PM EDT Office Visit [facility] OPTOMETRY [address] [place] [address] Teressa Velazquez, SYLVIA [address] [place] [address] documented as of this encounter Visit Diagnoses Not on filedocumented in this encounter Additional Health Concerns Assessment Noted Time PHQ-9 Depression Total Score: 2 12/08/19 25 8:50 AM EDT documented as of this encounter Care Teams Mobile Phone Salesperson Relationship Specialty Start Date End Date Celia Torres MD [address] [place] [address] PCP - General Family Medicine 03/10/12 Danielle Kaufman OD [address] [place] [address] Optometry 09/03/18 Larissa Trujillo DDS [address] [place] [address] Resident Dental Set Up Operator Tool 05/23/13 Obdulia Restrepo [address] [place] [address] [address] [place] [address] Ear Muff Assembler 05/27/23 Dustin Falcon MD [address] [place] [address] [address] [place] [address] Orthopaedic Surgery 04/08/23 Belinda Sears MD 575 [facility] 404 [place] [address] Referring Physician Family Medicine 07/23/23 Dipak Urban MD [facility] [address] 3rd [place] [address] Surgeon General Surgery 04/17/23 Hiren Radford MD [address] [place] [address] Lumber Tying Machine Operator Cardiology 09/03/18 Serjio Christianson MD [address] [place] [address] Vascular 01/26/24 documented as of this encounter
--- OUTSIDE RECORDS SUMMARY | 2024-12-08 12:16 | XMS_ITS | Encounter Summary ---
Author Organization [employer] Address 75 [facility] 7t [place] [address] Care Team Providers Care Rn Vascular Name Role Phone Celia Torres MD Primary Care Provider [phone] Danielle Kaufman OD Unavailable [phone] Larissa Trujillo DDS Unavailable Unavailabl e Obdulia Restrepo Unavailable [phone] Dustin Falcon MD Unavailable Belinda Sears MD Unavailable [phone] Dipak Urban MD Unavailable [phone] Hiren Radford MD Unavailable [phone] Encounter Details Date Type Department Care Team (Latest Contact Info) Description 12/07/2024 Travel Social History Tobacco Use Types Packs/Day Years [...] AM EDT Ursula Anderson MA * Trouble falling or [...] 8:50 AM EDT Ursula Anderson MA * Thoughts that you would be better off or hurting yourself in some way Answer Date of Assessment Author Not at all 12/07/2024 8:50 AM JUSTINOT Ursula Anderson MA * Patient Health Questionnaire-9 Score Answer Date of Assessment Author 2 12/07/2024 8:50 AM EDT Ursula Anderson MA * How difficult have these problems made it for you to do your work, take care of things at home, or get along with other people? Answer Date of Assessment Author Not difficult at all 12/07/2024 8:50 AM EDT Nettie Carrasco MA documented as of this encounter Plan of Treatment Upcoming Encounters Date Type Department Care Team (Late st Contact Info) Description 12/29/2024 2:00 PM EDT Office Visit [facility] OPTOMETRY [address] [place] [address] Teressa Velazquez OD [address] [place] [address] documented as of this encounter Visit Diagnoses Not on filedocumented in this encounter Additional Health Concerns Assessment Noted Time PHQ-9 Depression Total Score: 2 12/08/19 8:50 AM EDT documented as of this encounter Care Teams Rn Vascular Relationship Specialty Start Date End Date Celia Torres MD [address] [place] [address] PCP - General Family Medicine 03/10/12 Danielle Kaufman OD [address] [place] [address] Optometry 09/03/18 Larissa Trujillo DDS [address] [place] [address] Resident Dental Engineering Team Supervisor 05/23/13 Obdulia Restrepo [address] [place] [address] Furnace Repairer 05/27/23 Dustin Falcon MD [address] [place] [address] [address] [place] [address] Orthopaedic Surgery 04/08/23 Belinda Sears MD 575 [facility] 404 [place] [address] Referring Physician Family Medicine 07/23/23 Dipak Urban MD [address] [place] [address] Drive 3rd [place] [address] Surgeon General Surgery 04/17/23 Hiren Radford MD [address] [place] [address] Hot Saw Helper Cardiology 09/03/18 Serjio Christianson MD [address] [place] [address] Vascular 01/26/24 documented as of this encounter
== END 2024-12-08 10:30 | disposition home or self-care (01) ==
LOC: HO.NEURO 10:29
DX: R20.0 Anesthesia of skin (principal); R20.2 Paresthesia of skin; R94.131 Abnormal electromyogram [EMG]
CPT/HCPCS: 95886; 95911

== ENCOUNTER → 2024-12-08 10:34 | Outpatient (BNV) | payer MEDICARE, MEDICAID, SELFPAY | PROVIDERS: Visit Provider Physical Medicine & Rehabilitation | DX: R20.0 Anesthesia of skin (principal); G56.01 Carpal tunnel syndrome, right upper limb | CPT/HCPCS: 95886; 95911 ==

== ENCOUNTER 2025-01-19 13:52 | Outpatient (AMB) | payer MEDICARE, MEDICAID, SELFPAY ==
--- NOTE | 2025-01-19 14:09 | MHC.OFFVIS ---
Vital Signs 01/19/25 14:14 Height 5 ft 6 in Weight 220 lb BMI 35.5 Handedness Right Intake Visit Reasons: new prob-bilateral hand numbness and tingling Intake Note: David is a 59 year old right hand dominant man who presents today bilateral hand numbness and tingling, right greater than left. Patient reports difficulty with gripping, grasping, squeezing, and lifting due to his symptoms. 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 Worse at night and wakes him up. Patient reports he would like to discuss surgery. Hx of Type 2 DM, treated by oral agent. Last a1c 8.2. EMG/NCS done on 12/08/2024 IMPRESSION: 1. This is an abnormal study. 2. There is electrodiagnostic evidence for right mild median neuropathy at the wrist, consistent with carpal tunnel syndrome. 3. There is no electrodiagnostic evidence for ulnar neuropathy, brachial plexopathy, or cervical radiculopathy. 4. There is no electrodiagnostic evidence for median neuropathy on the left. Allergies cinnamon Allergy (Severe, Verified 01/19/25 14:13) Swelling Penicillins Allergy (Mild, Verified 01/19/25 14:13) RASH lisinopril Adverse Reaction (Intermediate, Verified 01/19/25 14:13) Cough cockaroach Allergy (Uncoded 01/19/25 14:13) Unknown HPI HPI new prob-bilateral hand numbness and tingling: Details: David is a 59 year old right hand dominant man who presents today bilateral hand numbness and tingling, right greater than left. Patient reports difficulty with gripping, grasping, squeezing, and lifting due to his symptoms. 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 Worse at night and wakes him up. Patient reports he would like to discuss surgery. Hx of Type 2 DM, treated by oral agent. Last a1c 8.2. EMG/NCS done on 12/08/2024 IMPRESSION: 1. This is an abnormal study. 2. There is electrodiagnostic evidence for right mild median neuropathy at the wrist, consistent with carpal tunnel syndrome. 3. There is no electrodiagnostic evidence for ulnar neuropathy, brachial plexopathy, or cervical radiculopathy. 4. There is no electrodiagnostic evidence for median neuropathy on the left. [facility] Medical History Family history of anesthesia complication Arthritis Vertigo MSSA (methicillin susceptible Staphylococcus aureus) infection Sludge in gallbladder Diabetes HTN (hypertension) Coarctation of aorta Asthma Surgical History History of uvulopalatopharyngoplasty Hx of tonsillectomy Hx of heart surgery Hx of heart surgery Hx of circumcision S/P lobectomy of lung Status post aortic coarctation stent placement Social History Are you a primary direct care worker to a significant other at home: No Do you presently have visiting nurse or other home services: No Alcohol intake: current Alcohol intake frequency: former alcohol drinker Patient Tobacco Use Status: Former Tobacco user Tobacco use type: Cigarette Cigarette Packs Per Day: 0.5 Years Smoked: 5 Substance Use Type: Marijuana Current occupational status: disabled Current occupation: right hand dominant Review of Systems Const All systems reviewed & are unremarkable except as noted in HPI and below Physical Exam Vital Signs: BMI result Body Mass Index 35.5 Extrem Other: Neuro: Diminished sensation of the tips of all digits of the median nerve distribution of bilateral hands in the office today No thenar or intrinsic wasting. Good APB muscle firing and good finger cross. Vascular: Capillary refill brisk. ROM: Patient can make a fist and extend all their digits. Skin: No lacerations or abrasions noted. General: No ecchymosis. No erythema or evidence of infection. Assessment & Plan Assessment & Plan (1) Bilateral carpal tunnel syndrome: Code(s): G56.03 - Carpal tunnel syndrome, bilateral upper limbs Category: Medical Plan 1. Bilateral carpal tunnel syndrome Symptoms constant, daily, worse at night Patient is educated about this condition Patient is educated about the typical recovery course At this time, patient is educated that the preferred treatment for carpal tunnel syndrome is carpal tunnel release surgery However, the patient's A1c is slightly too high, at 8.2, to be able to pursue surgery at this time Patient states that he has been working on better blood sugar management, and feels that his next A1c will likely be below 8 If patient has A1c is 8.0 or below, he should call our office for reassessment and discussion of surgery at that time patient understands this and is amenable to this plan Follow-up after blood work if A1c is 8.0 or below, sooner with any acute concerns Coding Level of Care Code New Pt Level 3 (62510) Diagnoses Bilateral carpal tunnel syndrome G56.03
[2025-01-19 14:14] VITALS: BMI 35.5
--- OUTSIDE RECORDS SUMMARY | 2025-01-19 17:40 | XMS_ITS | Encounter Summary ---
Author Organization [employer] Address [address] [place] [address] [address] [place] [address] Care Team Providers Care Supervisor Fabrication And Assembly Name Role Phone Celia Torres MD Primary Care Provider Danielle Kaufman OD Unavailable [phone] Larissa Trujillo DDS Unavailable Unavailabl e Obdulia Restrepo Unavailable [phone] Dustin Falcon MD Unavailable Belinda Sears MD Unavailable [phone] Dipak Urban MD Unavailable Hiren Radford MD Unavailable [phone] Encounter Details Date Type Department Care Team (Late st Contact Info) Description 04/18/2022 Orders Only [facility] [address] [place] [address] Sherice Lozano LPN Social History Tobacco Use Types Packs/Day Years Used Date Smoking Tobacco: Never Assessed Sex and Gender Information Value Date Recorded Sex Assigned at Male 02/04/2022 10:14 AM EDT Legal Sex Male 10:14 AM EDT Gender Identity Male 02/04/2022 10:14 AM EDT Sexual Orientation Choose not to disclose 2021 10:14 AM EDT documented as of this encounter Plan of Treatment Pending Results Name Type Priority Associated Diagnoses [...] EDT) Ova and Parasite Trichrome SEE NOTE [facility] Comment: OVA AND PARASITES, CONC AND PERM SMEAR Micro Number: [id number] Test Status: Final Specimen Source: Stool Specimen [...] infection. For additional information, please refer to [email or web address] (This link is being provided for informational/ educational purposes only.)THIS TEST WAS PERFORMED AT:[facility] [address] [id number] JUDSON,MD 08/24/2022 7:59 PM EDT 08/24/2022 8:24 PM EDT us [facility] Exter nal Provider LAB MICROBIOLOGY - GENERAL ORDERABLES Final Result [facility] [address] [place] [address] [phone] * Acid-Fast Smear (08/24/2022 6:10 PM EDT) 08/24/2022 6:10 PM EDT 08/24/2022 6:24 PM EDT Comment:Sputum Narrative [facility] - 10/23/2022 2:15 PM EDT Acid-Fast Smear Acid-Fast Smear Acid-Fast Smear No acid-fast bacilli seen. Testing performed at: [address] [address] Acid-Fast Culture null Acid-Fast Culture null Acid-Fast Culture null Acid-Fast Culture null Acid-Fast Culture null Specimen Source: Sputum [facility] Exter nal Provider LAB MICROBIOLOGY - GENERAL ORDERABLES Final Result Performing Organization Address City/[facility] Co de Phone Number [facility] [address] [place] [phone] * Type and screen (08/24/2022 4:17 PM EDT) Blood Type OP [facility] Antibody Screen NEGATIVE [facility] 08/24/2022 4:17 PM EDT 08/24/2022 4:27 PM EDT [facility] External Provider LAB BLO OD BANK TEST ORDERABLES Final Result Performing Organization Address City/[facility] Co de Phone Number [facility] [address] [place] [phone] * (ABNORMAL) Prothrombin Time-INR (08/24/2022 4:17 PM EDT) Prothrombin Time 15.0(H) 10.0 - 13.1 SEC [facility] INTERNATIONAL NORM RATIO 1.3(H) 0.9 - 1.1 [facility] Comment:INTERNATIONAL NORMAL IZED RATIO (INR) REFERENCE [...] 4:17 PM EDT 08/24/2022 4:25 PM EDT [facility] External Provider LAB BLO OD ORDERABLES Final Result Performing Organization Address [facility] Co de Phone Number [facility] [address] [place] [address] [phone] * Gram stain (08/24/2022 2:43 PM EDT) 08/24/2022 2:43 PM EDT 08/24/2022 2:45 PM EDT Comment:Sputum Narrative [facility] - 08/27/2022 9:28 AM EDT Gram [...] Staph Aureus: Vancomycin 1(S) Specimen Source: Sputum [facility] Exter nal Provider LAB MICROBIOLOGY - GENERAL ORDERABLES Final Result Performing Organization Address [facility] Co de Phone Number [facility] [address] [place] [address] [phone] * Gastrointestinal panel (08/24/2022 12:11 PM EDT) Campylobacter Not Detected Not Detect. [facility] Plesiomonas shigelloides Not Detected Not Detect. [facility] Salmonella Not Detected Not Detect. [facility] Vibrio Not Detected Not Detect. [facility] Vibrio cholerae Not Detected Not Detect. [facility] YERSINIA ENTEROCOLITICA Not Detected Not Detect. [facility] Enteroaggregative E. coli (EAEC) Not Detected Not Detect. [facility] Enteropathogenic E. coli (EPEC) Not Detected Not Detect. [facility] Enterotoxigenic E. coli (ETEC) lt/st Not Detected Not Detect. [facility] Shiga-like toxin-producing E. coli (STEC) stx1/stx2 Not Detected Not Detect. [facility] E coli O157 Not applicable Not Detect. [facility] Comment:E. coli containing t he O157 antigen are a subset ofShiga-like toxin- producing E. coli (STEC). Shigella/Enteroinvasive E. coli (EIEC) Not Detected Not Detect. [facility] Cryptosporidium Not Detected Not Detect. [facility] Cyclospora cayetanensis Not Detected Not Detect. [facility] Entamoeba histolytica Not Detected Not Detect. [facility] Giardia lamblia Not Detected Not Detect. [facility] Adenovirus F 40/41 Not Detected Not Detect. [facility] Astrovirus Not Detected Not Detect. [facility] Norovirus GI/GII Not Detected Not Detect. [facility] Rotavirus A Not Detected Not Detect. [facility] Sapovirus Not Detected Not Detect. [facility] Comment: All results must be correlated [...] assay is performed by Multiplexed PCR, utilizing [employer]. 08/24/2022 12:1 1 PM EDT 08/24/2022 12:15 PM EDT [facility] Exter nal Provider LAB MICROBIOLOGY - GENERAL ORDERABLES Final Result Performing Organization Address [facility] Co de Phone Number [facility] [address] [place] [address] [phone] * CDiff Gene PCR (08/24/2022 12:11 PM EDT) CDiff Gene PCR NEGATIVE Negative [facility] Comment:If C. difficile stro ngly suspected despite one negativetest, a second test may be sent vs. empiric treatment forC. difficile infection. 08/24/2022 12:1 1 PM EDT 08/24/2022 12:15 PM EDT [facility] Ext nal Provider LAB BODY FLUIDS AND STOOLS ORDERABLES Final Result Performing Organization Address [facility] Co de Phone Number [facility] [address] [place] [phone] * Blood Culture (Second) (08/24/2022 11:14 AM EDT) 08/24/2022 11:1 4 AM EDT 08/24/2022 11:20 AM EDT Comment:Blood Narrative [facility] - 08/26/2022 8:15 AM EDT Blood [...] Culture (Second) Gram stain reviewed by a [facility] Staphylococcus aureus Refer [facility] ORG #1: Susceptibility testing of same organism(s) from Refer [facility] similar site will not be repeated within 4 days. Results of Blood Culture gram stain called to and read back by EMILEE at 2113 on 08/24/22 by RADHA. Specimen Source: Blood us [facility] Exter nal Provider LAB MICROBIOLOGY - GENERAL ORDERABLES Final Result [facility] [address] [place] [phone] * Blood Culture (First) (08/24/2022 11:13 AM EDT) 08/24/2022 11:1 3 AM EDT 08/24/2022 11:17 AM EDT Comment:Blood Narrative [facility] - 08/26/2022 8:14 AM EDT Blood [...] Culture (First) Gram stain reviewed by a [facility] Staphylococcus aureus Results of Blood Culture gram stain called to and read back by EMILEE at 2117 on 08/24/22 by RADHA. Staphylococcus aureus: Clindamycin <=0.25(S) Staphylococcus aureus: Erythromycin <=0.25(S) Staphylococcus aureus: Levofloxacin <=0.12(S) Staphylococcus aureus: Oxacillin 0.5(S) Staphylococcus aureus: Penicillin-G >=0.5(R) Staphylococcus aureus: Tetracycline <=1(S) Staphylococcus aureus: Trimethoprim/Sulfamethoxazole <=10(S) Specimen Source: Blood [facility] Exter nal Provider LAB MICROBIOLOGY - GENERAL ORDERABLES Final Result Performing Organization Address [facility] de Phone Number [facility] [address] [place] [phone] * Magnesium (08/24/2022 11:13 AM EDT) Magnesium 1.6 1.6 - 2.6 mg/dL [facility] 08/24/2022 11:1 3 AM EDT 08/24/2022 11:17 AM EDT [facility] External Provider LAB BLO OD ORDERABLES Final Result Performing Organization Address [facility] Phone Number [facility] [address] [place] [phone] * Lactic Acid (08/24/2022 11:13 AM EDT) Pathologist [facility] Lactic Acid 1.8 0.5 - 2.0 mmol/L [facility] 08/24/2022 11:1 3 AM EDT 08/24/2022 11:17 AM EDT [facility] External Provider LAB BLO OD ORDERABLES Final Result Performing Organization Address [facility] de Phone Number [facility] [address] [place] [phone] * SARS-CoV-2 RNA, Influenza A/B, and RSV RNA, Ql NAAT (08/24/2022 10:43 AM EDT) Pathologist [facility] Influenza A PCR NEGATIVE Negative [facility] Influenza B PCR NEGATIVE Negative [facility] Resp Syncy Virus RNA Qual PCR NEGATIVE Negative [facility] SARS COV2 PCR NEGATIVE Negative [facility] Comment:All test results mus t [...] use by authorized laboratories.Testing performed on the [employer] GeneXpert utilizingreal-time RT-PCR.All SARS CoV2 and positive influenza A/B results arereported to [facility]. 08/24/2022 10:4 3 AM EDT 08/24/2022 10:46 AM EDT [facility] Exter nal Provider LAB MICROBIOLOGY - GENERAL ORDERABLES Final Result Performing Organization Address [facility]/ZIP Co de Phone Number [facility] [address] [place] [phone] * Lipase (08/24/2022 10:33 AM EDT) Lipase 26 8 - 78 U/L [facility] 08/24/2022 10:3 3 AM EDT 08/24/2022 10:38 AM EDT [facility] External Provider LAB BLO OD ORDERABLES Final Result Performing Organization Address [facility] Co de Phone Number [facility] [address] [place] [address] [phone] * (ABNORMAL) Comprehensive Metabolic Panel (08/24/2022 10:33 AM EDT) Sodium 138 135 - 145 mmol/L [facility] Potassium 3.6 3.3 - 5.1 mmol/L [facility] Chloride 104 96 - 108 mmol/L [facility] Carbon Dioxide 23 22 - 29 mmol/L [facility] Anion Gap 15 12 - 20 [facility] Urea Nitrogen (BUN) 13 9 - 16 mg/dL [facility] Creatinine, Serum 1.33 0.5 - 1.4 mg/dL [facility] Creatinine Clr Calc Pharmacy 67.2 [facility] Comment:eGFR (calculated fro m the MDRD study equation) and eCrCl(calculated from the Cockcroft-Gault equation) are based ondifferent parameters and may not yield comparable results.If eCrCl result is absurd, please check patient'sheight/weight. Estimated Glomerular Filt Rate 55 [facility] Comment:NOTE: For -Am erican individuals, multiply the result by 1.210.Chronic Kidney Disease: Estimated GFR < 60 mL/min/[id number] Kidney Disease: Estimated GFR < 15 mL/min/1.73m2 Glucose 264(H) 60 - 115 mg/dL [facility] Calcium 9.5 8.4 - 10.2 mg/dL [facility] Bilirubin, Total 0.8 0.0 - 1.0 mg/dL [facility] Aspartate Amino Transferase 32 5 - 37 U/L [facility] Alanine Aminotransferase 27 0 - 40 U/L [facility] Total Protein 6.5 6.5 - 8.0 g/dL [facility] Albumin Level 3.9 3.5 - 5.0 g/dL [facility] Alkaline Phosphatase 68 39 - 117 U/L [facility] 08/24/2022 10:3 3 AM EDT 08/24/2022 10:38 AM EDT us [facility] External Provider LAB BLO OD ORDERABLES Final Result [facility] [address] [place] [address] [phone] * (ABNORMAL) Complete Blood Count Manual Diff (08/24/2022 10:33 AM EDT) White Blood Count 9.4 4.8 - 10.8 X10*3/uL [facility] Red Blood Count 5.40 4.60 - 5.80 X10*6/uL [facility] Hemoglobin 15.7 14.0 - 18.0 g/dl [facility] Hematocrit 46.5 42.0 - 52.0 % [facility] Mean Corpuscular Volume 86.1 80.0 - 98.0 fL [facility] Mean Corpuscular Hemoglobin 29.1 27.0 - 33.0 pg [facility] Mean Corpuscular HGB Conc 33.8 31.0 - 36.0 g/dl [facility] Red Cell Distribution Width 12.7 11.0 - 16.0 % [facility] Platelet Count 130(L) 160 - 400 X10*3/uL [facility] Mean Platelet Volume 11.2 9.4 - 12.4 fL [facility] NRBC Pct Auto 0.0 0.0 - 0.2 /100WBC [facility] NRBC Abs Auto 0.000 0.0 - 0.012 X10*3/uL [facility] Neutrophils % Manual 57 45 - 73 % [facility] Band Neutrophils Percent 30(H) 3 - 5 % [facility] Comment:Results of BANDS ousmane led to ILENE on 08/24/22at 1115 by MARLON. Lymphocytes Percent Manual 7(L) 20 - 40 % [facility] Monocytes Percent Manual 6 2 - 11 % [facility] NEUTROPHILS ABSOLUTE MANUAL 8.2 2.0 - 8.3 X10*3/uL [facility] LYMPHOCYTES ABSOLUTE MANUAL 0.7(L) 1.2 - 4.9 X10*3/uL [facility] MONOCYTES ABSOLUTE MANUAL 0.6 0.1 - 1.2 X10*3/uL [facility] Platelet Estimate DECREASED NORMAL [facility] Large Platelet PRESENT [facility] Platelet Morphology Comment NOTED [facility] RBC Morphology NORMAL [facility] Toxic Vacuolation PRESENT [facility] Dohle Bodies PRESENT [facility] 08/24/2022 10:3 3 AM EDT 08/24/2022 10:38 AM EDT us [facility] External Provider LAB BLO OD ORDERABLES Final Result Performing Organization Address [facility] Co de Phone Number [facility] [address] [place] [phone] * HIGH SENSITIVITY TROPONIN I (05/15/2022 12:01 PM EST) TROPONIN I HIGH SENSITIVITY 3.5 <3.5 - 35.0 ng/L [facility] Comment:The Sebastian high sens itivity Troponin-I results should beused in conjunction with other diagnostic information suchas ECG, clinical observations and information, and patientsymptoms to aid in the diagnosis of VT. 05/15/2022 12:0 1 PM EST 05/15/2022 12:04 PM EST [facility] External Provider LAB BLO OD ORDERABLES Final Result Performing Organization Address [facility] Co de Phone Number [facility] [address] [place] [address] [phone] * COVID-19 ID NOW (SEBASTIAN) (05/15/2022 12:01 PM EST) IDNOW SERIAL# [id number] [facility] COVID-19 TEST Negative Negative [facility] COVID-19 NOTE See Note [facility] Comment: Results are for the identification of SARS-CoV2 RNA. TheSARS-CoV2 RNA is generally detectable in respiratory samplesduring the acute phase of infection. Positive results areindicative of the presence of SARS-CoV-2 RNA; clinicalcorrelation with patient history and other diagnosticinformation is necessary to determine patient infectionstatus. Positive results do not rule out bacterial infectionor co- infection with other viruses.Testing facilities within the [facility] and itsterritories are required to report all positive results [...] use by authorized laboratories.Testing performed on the [email or web address] ID NOW utilizing NAAT. 05/15/2022 12:0 1 PM EST 05/15/2022 12:04 PM EST [facility] Exter nal Provider LAB MOLECULAR DIAGNOSTICS ORDERABLES Final Result Performing Organization Address [facility]/ZIP Co de Phone Number [facility] [address] [place] [phone] * Magnesium (05/15/2022 12:01 PM EST) Pathologist [facility] Magnesium 2.0 1.6 - 2.6 mg/dL [facility] 05/15/2022 12:0 1 PM EST 05/15/2022 12:04 PM EST [facility] External Provider LAB BLO OD ORDERABLES Final Result Performing Organization Address [facility] Co de Phone Number [facility] [address] [place] [phone] * (ABNORMAL) Basic Metabolic Panel (05/15/2022 12:01 PM EST) Sodium 143 135 - 145 mmol/L [facility] Potassium 4.5 3.3 - 5.1 mmol/L [facility] Chloride 103 96 - 108 mmol/L [facility] Carbon Dioxide 27 22 - 29 mmol/L [facility] Anion Gap 18 12 - 20 [facility] Urea Nitrogen (BUN) 14 9 - 16 mg/dL [facility] Creatinine, Serum 0.90 0.5 - 1.4 mg/dL [facility] Creatinine Clr Calc Pharmacy 104.5 [facility] Comment:eGFR (calculated fro m the MDRD study equation) and eCrCl(calculated from the Cockcroft-Gault equation) are based ondifferent parameters and may not yield comparable results.If eCrCl result is absurd, please check patient'sheight/weight. Estimated Glomerular Filt Rate >60 [facility] Comment:NOTE: For -Am erican individuals, multiply the result by 1.210.Chronic Kidney Disease: Estimated GFR < 60 mL/min/1.35p3Wiubgu Kidney Disease: Estimated GFR < 15 mL/min/1.73m2 Glucose 183(H) 60 - 115 mg/dL [facility] Calcium 9.8 8.4 - 10.2 mg/dL [facility] 05/15/2022 12:0 1 PM EST 05/15/2022 12:04 PM EST [facility] External Provider LAB BLO OD ORDERABLES Final Result Performing Organization Address [facility] Co de Phone Number [facility] [address] [place] [phone] * (ABNORMAL) Hepatic Function Panel (05/15/2022 12:01 PM EST) Bilirubin, Total 0.5 0.0 - 1.0 mg/dL [facility] Bilirubin, Direct <0.2 0.0 - 0.5 mg/dL [facility] Aspartate Amino Transferase 50(H) 5 - 37 U/L [facility] Alanine Aminotransferase 59(H) 0 - 40 U/L [facility] Total Protein 6.9 6.5 - 8.0 g/dL [facility] Albumin Level 4.4 3.5 - 5.0 g/dL [facility] Alkaline Phosphatase 109 39 - 117 U/L [facility] 05/15/2022 12:0 1 PM EST 05/15/2022 12:04 PM EST [facility] External Provider LAB BLO OD ORDERABLES Final Result Performing Organization Address [facility]/ZIP Co de Phone Number [facility] [address] [place] [address] [phone] * (ABNORMAL) CBC auto differential (05/15/2022 12:01 PM EST) White Blood Count 8.0 4.8 - 10.8 X10*3/uL [facility] Red Blood Count 5.59 4.60 - 5.80 X10*6/uL [facility] Hemoglobin 16.2 14.0 - 18.0 g/dl [facility] Hematocrit 48.8 42.0 - 52.0 % [facility] Mean Corpuscular Volume 87.3 80.0 - 98.0 fL [facility] Mean Corpuscular Hemoglobin 29.0 27.0 - 33.0 pg [facility] Mean Corpuscular HGB Conc 33.2 31.0 - 36.0 g/dl [facility] Red Cell Distribution Width 13.0 11.0 - 16.0 % [facility] Platelet Count 202 160 - 400 X10*3/uL [facility] Mean Platelet Volume 11.1 9.4 - 12.4 fL [facility] Neutrophils Percent Auto 68.0 45 - 73 % [facility] Imm Gran Pct Auto 0.6(H) 0.0 - 0.4 % [facility] Lymphocytes Percent Auto 23.6 20 - 40 % [facility] Monocytes Percent Auto 6.5 2 - 11 % [facility] Eosinophils Percent Auto 1.0 0 - 4 % [facility] Basophils Percent Auto 0.3 0 - 2 % [facility] NRBC Pct Auto 0.0 0.0 - 0.2 /100WBC [facility] Neutrophils Absolute Auto 5.4 2.0 - 8.3 x10*3/uL [facility] Imm Gran Abs Auto 0.05(H) 0.00 - 0.03 X10*3/uL [facility] Lymphocytes Absolute Auto 1.9 1.2 - 4.9 X10*3/uL [facility] Monocytes Absolute Auto 0.5 0.1 - 1.2 X10*3/uL [facility] Eosinophils Absolute Auto 0.1 0.0 - 0.4 X10*3/uL [facility] Basophils Absolute Auto 0.0 0.0 - 0.2 X10*3/uL [facility] NRBC Abs Auto 0.000 0.0 - 0.012 X10*3/uL [facility] 05/15/2022 12:0 1 PM EST 05/15/2022 12:04 PM EST us [facility] External Provider LAB BLO OD ORDERABLES Final Result [facility] [address] [place] [address] [phone] documented in this encounter Visit Diagnoses Not on filedocumented in this encounter Care Teams Supervisor Fabrication And Assembly Relationship Specialty Start Date End Date Celia Torres MD [address] [place] [address] PCP - General Family Medicine 03/10/12 Danielle Kaufman OD [address] [place] [address] Optometry 09/03/18 Larissa Trujillo DDS [address] [place] [address] Resident Dental Filler Mixer 05/23/13 Obdulia Restrepo [address] [place] [address] Dr [address] [place] [address] Esthetician/Spa Coordinator 05/27/23 Dustin Falcon MD [address] [place] [address] Dr [address] [place] [address] Orthopaedic Surgery 04/08/23 Belinda Sears MD [address] [facility] [address] [place] [address] Referring Physician Family Medicine 07/23/23 Dipak Urban MD [address] [place] [address] Drive [address] [place] [address] Surgeon General Surgery 04/17/23 Hiren Radford MD [address] [place] [address] [facility] 09/03/18 Serjio Christianson MD [address] [place] [address] Vascular 01/26/24 documented as of this encounter
--- OUTSIDE RECORDS SUMMARY | 2025-01-19 17:40 | XMS_ITS | Encounter Summary ---
Author Organization [employer] Address [address] [facility] 7t [place] [address] Care Team Providers Care Flamer Sealer Name Role Phone Celia Torres MD Primary Care Provider Danielle Kaufman OD Unavailable [phone] Larissa Trujillo DDS Unavailable Unavailabl e Obdulia Restrepo Unavailable [phone] Dustin Falcon MD Unavailable Belinda Sears MD Unavailable [phone] Dipak Urban MD Unavailable [phone] Hiren Radford MD Unavailable Reason for Visit * Reason Comments Med Refill Encounter Details Date Type Department Care Team (Late st Contact Info) Description 02/10/2023 Refill [facility] CHC MED & PEDS [address] [place], [place] [phone] Celia Torres MD 505 [place], [place] [phone] Chronic pain syndrome (Primary Dx) Social History [...] documented as of this encounter Care Teams Flamer Sealer Relationship Specialty Start Date End Date Celia Torres MD 230 [place] [address] PCP - General Family Medicine 03/10/12 Danielle Kaufman OD 230 [place] [address] Optometry 09/03/18 Larissa Trujillo DDS 230 [place] [address] Resident Dental Oncology Transplant Network Manager 05/23/13 Obdulia Restrepo [address] [place] [address] Dr [address] [place] [address] Slurry Mixer 05/27/23 Dustin Falcon MD [address] [place] [address] Dr [address] [place] [address] Orthopaedic Surgery 04/08/23 Belinda Sears MD 575 [facility] 404 [place] [address] Referring Physician Family Medicine 07/23/23 Dipak Urban MD [address] [place] [address] Drive 3rd [place] [address] Surgeon General Surgery 04/17/23 Hiren Radford MD 596 [place] [address] Classifier Cardiology 09/03/18 Serjio Christianson MD 3500 [place] [address] Vascular 01/26/24 documented as of this encounter
--- OUTSIDE RECORDS SUMMARY | 2025-01-19 17:40 | XMS_ITS | Encounter Summary ---
Author Organization [facility] Address [address] [place] [address] Care Team Providers Care Dental Internship Name Role Phone Ramon West MD Unavailable [phone] Ramon West MD Primary Care Provider [phone] Reason for Visit * Reason Comments Medication Refill Encounter Details Date Type Department Care Team (Late st Contact Info) Description 10/09/2022 Refill [facility] Cardiothoracic Surgery [address] [address] Kasia Casas PA-C [address] [address] Hypertension, unspecified type Social History [...] place to sleep or slept in a [facility] (including now)? No 08/26/2022 Sex and Gender [...] type documented in this encounter Care Teams Dental Internship Relationship Specialty Start Date End Date Ramon West MD 85 [place] [address] PCP - General Surgery, Cardiac 10/09/22 Ramon West MD [address] [address] Surgery, Cardiac 08/26/22 Hiren Radford [address] [place] [address] Medical Lab Technician Cardiovascular Disease 10/02/22 [facility] 230 [place] [address] Primary Care Provider General Medicine 10/02/22 documented as of this encounter
--- OUTSIDE RECORDS SUMMARY | 2025-01-19 17:40 | XMS_ITS | Clinical Summary ---
Author Organization [employer] Address [address] [place] [address] 7t [place] [address] Care Team Providers Care Flanger Name Role Phone Celia Torres MD Primary Care Provider [phone] Danielle Kaufman OD Unavailable [phone] Larissa Trujillo DDS Unavailable Unavailabl e Obdulia Restrepo Unavailable [phone] Dustin Falcon MD Unavailable Belinda Sears MD Unavailable [phone] Dipak Urban MD Unavailable Hiren Radford MD Unavailable Allergies Active Allergy Reactions Criticality Noted Date Comments Lisinopril Rash Low 09/03/2022 Penicillins Rash Low 09/03/2022 Medications TRUEplus Lancets 33G miscIndications:T ype 2 diabetes mellitus without complications (HCC) Check sugar BID 60 each 5 023 Active FREESTYLE LITE test stripIndications: Type 2 diabetes mellitus without complications (HCC) TEST BLOOD SUGAR DAILY 50 strip 5 [...] topical BID 100 g 3 025 Active azithromycin (Zithromax) 250 MG tablet [...] tablet 1 tab po daily 60 tablet 025 Active cyanocobalamin (Vitamin B-12) 1000 MCG tabletIndications :Benign hypertension TAKE ONE TABLET EVERY MORNING (VITAMIN) 90 tablet 025 Active cyanocobalamin (Vitamin B-12) 1000 MCG tabletIndications :Benign hypertension TAKE ONE TABLET EVERY MORNING (VITAMIN) 90 tablet 025 2024 Discontinued Active Problems Problem Noted Date Diagnosed Date Arteriosclerosis of coronary artery 10/31/2023 Bandemia 10/31/2023 Benign paroxysmal positional vertigo 10/31/2023 Abdominal pain 10/31/2023 Chest pain 10/31/2023 Class 2 obesity 10/31/2023 Diabetes mellitus 10/31/2023 Former cigarette smoker 10/31/2023 Gastroesophageal reflux disease 10/31/2023 Hemoptysis 10/31/2023 Morbid obesity (CMS/HCC) 10/31/2023 Severe obesity (BMI 35.0-39.9) with comorbidity (CMS/HCC) 10/31/2023 Pneumonia 10/31/2023 Sludge in gallbladder 10/31/2023 Strain of lumbar spine 10/31/2023 Thoracic aortic aneurysm (TAA) 10/31/2023 Hypertension 10/31/2023 HLD (hyperlipidemia) 10/31/2023 Asthma 10/31/2023 Left shoulder pain 07/10/2023 Heart murmur 05/02/2023 Skin scar contracture 03/17/2023 Chronic pain syndrome 02/11/2023 MSSA bacteremia 09/30/2022 Encntr for surgical aftcr following surgery on t he circ sys 09/16/2022 manager terminal (current) use of aspirin 09/16/2022 retirement (current) use of oral hypoglycemic chasity gs 09/16/2022 Pneumonia due to methicillin resistant Staphylococcus aureus (CMS/HCC) 09/16/2022 Acquired absence of lung 08/26/2022 Presence [...] Encounters Date Type Department Care Team Description 01/14/2025 Refill [facility] CHC MED & PEDS 505 [place] [address] Lali Croft FNP Benign hypertension 12/07/2024 8:45 AM EDT Office Visit [facility] MED & PEDS [address] [place] [address] Celia Torres MD Type 2 diabetes mellitus without complication, without long-term current use of insulin ([facility]) (Primary Dx); Benign hypertension; Sleep apnea, unspecified type; Dietary counseling; Exercise counseling; Sebaceous cyst 12/07/2024 Telephone [facility] MED & PEDS [address] [place] [address] Celai Torres MD 12/07/2024 Travel 12/03/2024 Telephone [facility] MED & PEDS 505 [place] [address] Celia Torres MD chart prep 11/29/2024 Patient Outreach [facility] MEDICINE 230 [place], [place] [phone] Celia Torres MD Pre-visit Planning (Pre visit planning LVM ) 10/27/2024 9:15 AM EDT Office Visit [facility] OPTOMETRY [address] [place] [address] Presbyopia (Primary Dx) 10/20/2024 Refill [facility] MED & PEDS [address] [place] [address] Celia Torres MD Hypertension, unspecified type from Last 3 Months Immunizations Immunization Administration Dates Next Due Influenza injectable quadriv alent IIV4 with preservative 01/04/2016,02/06/2015 Influenza, Split (incl. purified surface antigen ) 02/12/2015 Meningococcal MPSV4 04/27/2014 Moderna Covid-19 Vaccine 12+ 07/17/2020,06/20/19 21 Pfizer Covid-19 Vaccine 12+ 01/23/2024 Pneumococcal Polysaccharide [...] 12/07/2024 8:49 AM EDT Plan of Treatment Health Maintenance Due Date Last Done Comments CT Colonography 1964 Colonoscopy 1964 FIT 1964 HIV Screening 1964 Sigmoidoscopy 1964 Diabetes: [...] 01/13/2025 025, 07/14/2024, 11/03/2023, Additional history exists FOBT 02/09/2025 02/10/2024 Dental Oral Exam 02/10/2025 08/09/2024, 02/11/2024 Dental [...] complication, without long-term current use of insulin ([facility]) HEMOGLOBIN A1C Routine 10/13/2024 9:33 AM EDT PROPHYLAXIS - ADULT Routine 08/09/2024 9 :00 AM EDT PERIODIC ORAL EVALUATION - ESTABLISHED PATIENT Routine 08/09/2024 9:00 AM EDT LIPID PANEL, STANDARD Routine 07/22/2024 8:06 AM EDT Type 2 diabetes mellitus without complication, without long-term current use of insulin ([facility]) INTRAORAL - COMPLETE SERIES OF RADIOGRAPHIC IMAGES [...] TEST ENTER/EDIT OR DERABLES Final Result * (ABNORMAL) Hemoglobin A1c (10/13/2024 9:33 AM EDT) Hemoglobin A1c 8.2(H) <6.0 % [facility] Comment:Hemoglobin A1C Refer ence Range Adults: 4.8 - 6.0 % Non diabetic: < 6.0 % Goal: < 7.0 %Additional Action Suggested: > 8.0 %Note: Hemoglobin A1c results are invalid for patients with abnormal amounts of HbF. Blood transfusions may impact the HbA1c concentration in the patient sample. Estimated Average Glucose 189 mg/dL [facility] Comment:eAG = Estimated ave rage glucose which is %A1C expressed asaverage glucose, using the formula of the A7W-LpjmjciObjeepq Glucose study (ADAG), Diabetes Care, Vol.31,#8,2007 10/13/2024 9:33 AM EDT 10/13/2024 9:33 AM EDT us Generic External Data Provider LAB BLOOD ORDERAB LES Final Result Performing Organization Address City/[facility]/ZIP Co de Phone Number [facility] [address] [place] [address] [phone] * (ABNORMAL) Lipid Panel, Standard (07/22/2024 8:06 AM EDT) Triglycerides 52 <150 mg/dL [facility] Comment:Desirable Triglyceri de: less than 150 mg/dLBorderline High Triglyceride 150-199 mg/dLHigh Triglyceride: 200-499 mg/dLVery High Triglyceride: greater than or equal to 5OO mg/dL Cholesterol 109 <200 mg/dL [facility] Comment:Desirable Cholestero l: less than 200 mg/dLBorderline High Cholesterol: 200-239 mg/dLHigh Cholesterol: greater than 239 mg/dL LDL Cholesterol Calculated 68 <100 mg/dL [facility] Comment:Desirable LDL: less than 100 mg/dLNear Optimal/Above Optimal LDL: 110- 129 mg/dLBorderline High LDL: 130-159 mg/dLHigh LDL: 160-189 mg/dLVery High LDL: greater than or equal to 190 mg/dL HDL Cholesterol 31(L) >40 mg/dL [facility] Comment:Desirable HDL: great er than 40 mg/dL Note: This HDL assay may give artificially low results in patients with liver disease. Blood Venous blood specimen / Unknown 07/22/2024 8:06 AM EDT 07/22/2024 8:06 AM EDT us Celia Torres MD LAB BLOOD ORDERABLES Final Resul t Performing Organization Address City/[facility]/ZIP Co de Phone Number [facility] [address] [place] [address] [phone] * (ABNORMAL) Cologuard?? colon cancer screening (02/10/2024 6:22 AM EST) Cologuard Result Positive( A) Negative 02/17/2024 8:49 PM EST [facility] (CLIA #:[id number]) Comment: POSITIVE TEST RESULT. A positive Cologuard [...] (Rachele Tejeda al, N Engl J Med 2014;370(14):7709-6601.) Cologuard may produce a false negative or false positive result (no colorectal cancer or precancerous polyp present at colonoscopy follow up). A negative Cologuard test result does not guarantee the absence of CRC or advanced adenoma (pre-cancer). The current Cologuard screening interval is every 3 years. ([place] [employer] Society and U.S. Multi-Society Task Force). Cologuard performance data in a 10,000 patient pivotal study using colonoscopy as the reference method can be accessed at the following location: www.If You Can/results. Additional description of the Cologuard test process, warnings and precautions can be found at www.Navidog.com. Stool specimen (specimen) 02/10/2024 6:22 AM EST 02/11/2024 12:14 PM EST Celia Torres MD LAB MOLECULAR DIAGNOSTICS ORDERA BLES Final Result Performing Organization Address City/[facility]/ZIP Co de Phone Number [facility] (CLIA #:[id number]) [address] [place] [address], * (ABNORMAL) ALBUMIN, RANDOM URINE W/CREATININE (04/27/2021 9:00 AM EST) Microalbumin Urine 1.2 See Note: mg/dL [facility] Comment: Reference Range: Reference Range [...] [facility] 04/27/2021 9:00 AM EST Celia Torres MD LAB URINE ORDERABLES Final Resul t Performing Organization Address [facility] de Phone Number [facility] [address] from Last 3 Months or Most Recently Relevant to Health Maintenance Insurance [facility] STANDARD MEDICARE DENTAL[facility] MEDICAID [facility] ADULT Care Teams Flanger Relationship Specialty Start Date End Date Celia Torres MD [address] [place] [address] PCP - General Family Medicine 03/10/12 Danielle Kaufman OD 230 [place] [address] Optometry 09/03/18 Larissa Trujillo DDS [address] [place] [address] Resident Dental Podiatric Medicine Doctor 05/23/13 Obdulia Restrepo [address] [place] [address] Waistline Joiner Lockstitch 05/27/23 Dustin Falcon MD [address] [place] [address] Dr [address] [place] [address] Orthopaedic Surgery 04/08/23 Belinda Sears MD [address] [facility] [address] [place] [address] Referring Physician Family Medicine 07/23/23 Dipak Urban MD [address] 3rd [place] [address] Surgeon General Surgery 04/17/23 Hiren Radford MD 596 [place] [address] Sales Relationship Manager Cardiology 09/03/18 Serjio Christianson MD 3500 [place] [address] Vascular 01/26/24
--- OUTSIDE RECORDS SUMMARY | 2025-01-19 17:40 | XMS_ITS | Encounter Summary ---
Author Organization [facility] Address [address] [place] [address] Care Team Providers Care Marker Maker Name Role Phone Ramon West MD Unavailable Ramon West MD Primary Care Provider Encounter Details Date Type Department Care Team (Late st Contact Info) Description 11/11/2018 Scanned Document [facility] 3 ICU [address] [place] [address] Provider, Generic Social History Tobacco [...] documented as of this encounter Care Teams Marker Maker Relationship Specialty Start Date End Date Ramon West MD [address] [address] PCP - General Surgery, Cardiac 10/09/22 Ramon West MD [address] [address] Surgery, Cardiac 08/26/22 Hiren Radford [address] [place] [address] Vault Person Cardiovascular Disease 10/02/22 [facility] 230 [place] [address] Primary Care Provider General Medicine 10/02/22 documented as of this encounter
--- OUTSIDE RECORDS SUMMARY | 2025-01-19 17:40 | XMS_ITS | Encounter Summary ---
Author Organization [employer] Address [address] [place] [address] 7t [place] [address] Care Team Providers Care Safe Deposit Attendant Name Role Phone Celia Torres MD Primary Care Provider [phone] Danielle Kaufman OD Unavailable [phone] Larissa Trujillo DDS Unavailable Unavailabl e Obdulia Restrepo Unavailable [phone] Dustin Falcon MD Unavailable Belinda Sears MD Unavailable [phone] Dipak Urban MD Unavailable Hiren Radford MD Unavailable [phone] Reason for Visit * Reason Onset Date Comments triage 05/15/2022 Encounter Details Date Type Department Care Team (Late st Contact Info) Description 05/15/2022 Telephone [facility] MED[facility] 230 [place] [address] Celia Torres MD 505 [place], [place] [phone] triage Social History Tobacco Use Types Packs/Day [...] returned to patient who does not need interpreter deaf. Patient reports that he is having a [...] self and will access emergent care at [facility] now. Reviewed with pt to contact PCP office after ER evaluation for follow up appt. Pt verbalized understanding and agrees. Team updated with patient status. Protocol Used: Headache (Adult) Protocol-Based Disposition: Callback or Video Visit by PCP within 1 Hour Override (Final) Disposition: Go to ED/[facility] Now (or to Office with PCP Approval) [...] documented in this encounter Plan of Treatment Not on file documented as of this encounter Visit Diagnoses Not on filedocumented in this encounter Care Teams Safe Deposit Attendant Relationship Specialty Start Date End Date Celia Torres MD [address] [place] [address] PCP - General Family Medicine 03/10/12 Danielle Kaufman OD [address] [place] [address] Optometry 09/03/18 Larissa Trujillo DDS 230 [place] [address] Resident Dental Coater Brake Linings 05/23/13 Obdulia Restrepo [address] [facility] [address] [place] [address] Vascular Sonographer 05/27/23 Dustin Falcon MD [address] [place] [address] [address] [place] [address] Orthopaedic Surgery 04/08/23 Belinda Sears MD 575 [place] [facility] 404 [place] [address] Referring Physician Family Medicine 07/23/23 Dipak Urban MD [address] 3rd [place] [address] Surgeon General Surgery 04/17/23 Hiren Radford MD 596 [place] [address] Auto Body Worker Cardiology 09/03/18 Serjio Christianson MD 3500 [place] [address] Vascular 01/26/24 documented as of this encounter
--- OUTSIDE RECORDS SUMMARY | 2025-01-19 17:40 | XMS_ITS | Encounter Summary ---
Author Organization [employer] Address 75 [facility] 7t [place] [address] Care Team Providers Care Wind Energy Engineer Name Role Phone Celia Torres MD Primary Care Provider Danielle Kaufman OD Unavailable [phone] Larissa Trujillo DDS Unavailable Unavailabl e Obdulia Restrepo Unavailable [phone] Dustin Falcon MD Unavailable Belinda Sears MD Unavailable [phone] Dipak Urban MD Unavailable Hiren Radford MD Unavailable [phone] Reason for Visit * Reason Onset Date Comments Med Refill 02/07/2023 Encounter Details Date Type Department Care Team (Late st Contact Info) Description 02/07/2023 Refill [facility] CH[facility] MED & PEDS 505 [place], [place] [phone] Celia Torres MD 505 [place] [address] Social History Tobacco Use Types Packs/Day Years [...] 3:59 PM EDT TC to pt. Initial [employer] scheduled for 04/08/22 @ 2:30pm. * [...] documented as of this encounter Care Teams Wind Energy Engineer Relationship Specialty Start Date End Date Celia Torres MD 230 [place] [address] PCP - General Family Medicine 03/10/12 Danielle Kaufman OD 230 [place] [address] Optometry 09/03/18 Larissa Trujillo DDS 230 [place] [address] Resident Dental Charter Driver 05/23/13 Obdulia Restrepo [address] [facility] [address] [place] [address] Wool Dyer 05/27/23 Dustin Falcon MD [address] [place] [address] [address] [place] [address] Orthopaedic Surgery 04/08/23 Belinda Sears MD 575 [facility] [address] [place] [address] Referring Physician Family Medicine 07/23/23 Dipak Urban MD [address] 3rd [place] [address] Surgeon General Surgery 04/17/23 Hiren Radford MD 596 [place] [address] Dry Cleaning Supervisor Cardiology 09/03/18 Serjio Christianson MD 3500 [place] [address] Vascular 01/26/24 documented as of this encounter
--- OUTSIDE RECORDS SUMMARY | 2025-01-19 17:40 | XMS_ITS | Encounter Summary ---
Author Organization [employer] Address 75 [facility] 7t [place] [address] Care Team Providers Care Lang Path Therapist Name Role Phone Celia Torres MD Primary Care Provider Danielle Kaufman OD Unavailable [phone] Larissa Trujillo DDS Unavailable Unavailabl e Obdulia Restrepo Unavailable [phone] Dustin Falcon MD Unavailable Belinda Sears MD Unavailable [phone] Dipak Urban MD Unavailable Hiren Radford MD Unavailable [phone] Reason for Visit * Reason Comments Med Refill Encounter Details Date Type Department Care Team (Late st Contact Info) Description 01/14/2025 Refill [facility] CH[facility] MED & PEDS 505 [place], [place] [phone] Lali Croft FNP 505 [place], [place] [phone] Benign hypertension Social History Tobacco Use Types Packs/Day Years [...] as of this encounter Visit Diagnoses Diagnosis Benign hypertension Essential hypertension, benign documented in this encounter Additional Health Concerns Assessment Noted Time PHQ-9 Depression Total Score: 2 12/08/19 25 8:50 AM EDT documented as of this encounter Care Teams Lang Path Therapist Relationship Specialty Start Date End Date Celia Torres MD 230 [place] [address] PCP - General Family Medicine 03/10/12 Danielle Kaufman OD 230 [place] [address] Optometry 09/03/18 Larissa Trujillo DDS 230 [place] [address] Resident Dental Public Policy Analyst 05/23/13 Simransaeidkeke Obdulia [address] [facility] [address] [place] [address] Pantry Cook 05/27/23 Dustin Falcon MD [address] [place] [address] [address] [place] [address] Orthopaedic Surgery 04/08/23 Belinda Sears MD 575 [facility] [address] [place] [address] Referring Physician Family Medicine 07/23/23 Dipak Urban MD [address] 3rd [place] [address] Surgeon General Surgery 04/17/23 Hiren Radford MD 596 [place] [address] Buckle Attaching Machine Operator Cardiology 09/03/18 Serjio Christianson MD 3500 [place] [address] Vascular 01/26/24 documented as of this encounter
--- OUTSIDE RECORDS SUMMARY | 2025-01-19 17:40 | XMS_ITS | Encounter Summary ---
Author Organization [employer] Address [address] [place] [address] 7t [place] [address] Care Team Providers Care Product Owner Name Role Phone Celia Torres MD Primary Care Provider Danielle Kaufman OD Unavailable [phone] Larissa Trujillo DDS Unavailable Unavailabl e Obdulia Restrepo Unavailable [phone] Dustin Falcon MD Unavailable Belinda Sears MD Unavailable [phone] Dipak Urban MD Unavailable Hiren Radford MD Unavailable Reason for Visit * Reason Comments Med Refill Encounter Details Date Type Department Care Team (Late st Contact Info) Description 11/15/2022 Refill [facility] CH[facility] MED & PEDS 505 [place], [place] [phone] Celia Torres MD 505 [place], [place] [phone] S/P aortic bifurcation bypass graft Social History [...] documented as of this encounter Care Teams Product Owner Relationship Specialty Start Date End Date Celia Torres MD 230 [place] [address] PCP - General Family Medicine 03/10/12 Danielle Kaufman OD 230 [place] [address] Optometry 09/03/18 Larissa Trujillo DDS 230 [place] [address] [address] Roller Operator 05/23/[address] [facility] [address] [place] [address] Emergency Department Technician 05/27/23 Dustin Falcon MD [address] [place] [address] [address] [place] [address] Orthopaedic Surgery 04/08/23 Belinda Sears MD 575 [facility] [address] [place] [address] Referring Physician Family Medicine 07/23/23 Dipak Urban MD [address] [facility] 3rd [place] [address] Surgeon General Surgery 04/17/23 Hiren Radford MD 596 [place] [address] Die Engraver Cardiology 09/03/18 Serjio Christianson MD 3500 [place] [address] Vascular 01/26/24 documented as of this encounter
--- OUTSIDE RECORDS SUMMARY | 2025-01-19 17:40 | XMS_ITS | Encounter Summary ---
Author Organization [employer] Address [address] [place] [address] 7t [place] [address] Care Team Providers Care Set Up Mechanic Heading Machines Name Role Phone Celia Torres MD Primary Care Provider Danielle Kaufman OD Unavailable [phone] Larissa Trujillo DDS Unavailable Unavailabl e Obdulia Restrepo Unavailable [phone] Dustin Falcon MD Unavailable Belinda Sears MD Unavailable [phone] Dipak Urban MD Unavailable Hiren Radford MD Unavailable [phone] Reason for Visit * Reason Onset Date Comments Med Refill 11/11/2022 Encounter Details Date Type Department Care Team (Late st Contact Info) Description 11/11/2022 Telephone [facility] [address] [place], [place] [id number] Celia Torres MD 505 [place] [address] Med Refill Social History Tobacco Use Types [...] (Ultram) 50 MG tablet Please sent to [facility][id number] - [facility]END[facility] - [address] [facility] documented in this encounter Plan of Treatment Not on file documented as of this encounter Visit Diagnoses Not on filedocumented in this encounter Additional Health Concerns Assessment Noted Time PHQ-9 Depression Total Score: 1 07/10/19 23 10:12 AM EDT documented as of this encounter Care Teams Set Up Mechanic Heading Machines Relationship Specialty Start Date End Date Celia Torres MD 230 [place] [address] PCP - General Family Medicine 03/10/12 Danielle Kaufman OD 230 [place] [address] Optometry 09/03/18 Larissa Trujillo DDS 230 [place] [address] Resident Dental Hands Hanger 05/23/13 Obdulia Restrepo [address] [place] [address] [address] [place] [address] Floor Clerk 05/27/23 Dustin Falcon MD [address] [place] [address] Dr Ebony [address] [place] [address] Orthopaedic Surgery 04/08/23 Belinda Sears MD [address] [place] [address] [address] [place] [address] Referring Physician Family Medicine 07/23/23 Dipak Urban MD [address] 3rd [place] [address] Surgeon General Surgery 04/17/23 Hiren Radford MD [address] [place] [address] Marketing Producer Cardiology 09/03/18 Serjio Christianson MD [address] [place] [address] Vascular 01/26/24 documented as of this encounter
--- OUTSIDE RECORDS SUMMARY | 2025-01-19 17:40 | XMS_ITS | Encounter Summary ---
Author Organization [employer] Address [address] [place] [address] 7t [place] [address] Care Team Providers Care Antisqueak Worker Name Role Phone Celia Torres MD Primary Care Provider [phone] Danielle Kaufman OD Unavailable [phone] Larissa Trujillo DDS Unavailable Unavailabl e Obdulia Restrepo Unavailable [phone] Dustin Falcon MD Unavailable Belinda Sears MD Unavailable [phone] Dipak Urban MD Unavailable Hiren Rafdord MD Unavailable [phone] Encounter Details Date Type Department Care Team (Latest Contact Info) Description 10/24/2020 Abstract [facility] Dental, Provider, DDS Social History Tobacco [...] on filedocumented in this encounter Care Teams Antisqueak Worker Relationship Specialty Start Date End Date Celia Torres MD [address] [place] [address] [id number] PCP - General Family Medicine 03/10/12 Danielle Kaufman OD 230 [place] [address] Optometry 09/03/18 Larissa Trujillo DDS 230 [place] [address] Resident Dental Esl Tutor 05/23/[address] [facility] [address] [place] [address] Hr Business Partner 05/27/23 Dustin Falcon MD [address] [place] [address] [address] [place] [address] Orthopaedic Surgery 04/08/23 Belinda Sears MD [address] [facility] [address] [place] [address] Referring Physician Family Medicine 07/23/23 Dipak Urban MD [address] [facility] 3rd [place] [address] Surgeon General Surgery 04/17/23 Hiren Radford MD 596 [place] [address] Plant Attendant Or Assistant Operator Cardiology 09/03/18 Serjio Christianson MD [address] [place] [address] Vascular 01/26/24 documented as of this encounter
--- OUTSIDE RECORDS SUMMARY | 2025-01-19 17:40 | XMS_ITS | Encounter Summary ---
Author Organization [employer] Address [address] [place] [address] 7t [place] [address] Care Team Providers Care Mobile Marketing Manager Name Role Phone Celia Torres MD Primary Care Provider [phone] Danielle Kaufman OD Unavailable Larissa Trujillo DDS Unavailable Unavailabl e Obdulia Restrepo Unavailable [phone] Dustin Falcon MD Unavailable Belinda Sears MD Unavailable [phone] Dipak Urban MD Unavailable Hiren Radford MD Unavailable Encounter Details Date Type Department Care Team (Late st Contact Info) Description 10/14/2022 Orders Only [facility] MEDICINE [address] [place], [place] [phone] Shalonda Srinivasan, PharmD 230 [place], [place] [id number] Social History Tobacco Use Types Packs/Day Years [...] as of this encounter Care Teams Mobile Marketing Manager Relationship Specialty Start Date End Date Celia Torres MD 230 [place] [address] PCP - General Family Medicine 03/10/12 Danielle Kaufman OD 230 [place] [address] Optometry 09/03/18 Larissa Trujillo DDS 230 [place] [address] Resident Dental Gas Station Cashier 05/23/13 Obdulia Restrepo [address] [place] [address] 103 [place] [address] Production Utility Worker 05/27/23 Dutsin Falcon MD [address] [place] [address] 203 [place] [address] Orthopaedic Surgery 04/08/23 Belinda Sears MD 575 [facility] 404 [place] [address] Referring Physician Family Medicine 07/23/23 Dipak Urban MD [address] [place] [address] 3rd [place] [address] Surgeon General Surgery 04/17/23 Hiren Radford MD [address] [place] [address] Active Directory Engineer Cardiology 09/03/18 Serjio Christianson MD [address] [place] [address] Vascular 01/26/24 documented as of this encounter
--- OUTSIDE RECORDS SUMMARY | 2025-01-19 17:41 | XMS_ITS | Clinical Summary ---
Author Organization [facility] Address [address] [place] [address] Care Team Providers Care Order Booker Name Role Phone Ramon West MD Unavailable [...] place to sleep or slept in a fci (including now)? No 08/26/2022 Sex and Gender [...] Zoster (Shingles) Vaccine (1 of 2) 2014 RSV Vaccine 50 years and older and Patients (1 - Risk 60-74 years 1-dose series) 2024 Influenza Vaccine 11/05/2024 01/04/2016, 02/06/2015 COVID-19 Vaccine ( - season) 2024 07/17/2020, 06/19/2020 Hemoglobin A1C Discontinued 08/24/2022 Chronic Controlled Substance User PDMP Review Discontinued 09/25/2022, 08/24/2022 Hepatitis B Vaccines Aged Out No long er eligible based on patient's age to complete this topic Medical Devices Implanted Type Area Dry Press Operator Helper Device Identifier Shelf Expiration Date Model / Serial / Lot [id number] Graft Cv Glwv 10mm 30cm Abd Thrx Hydrolyzable Geltn Poly Wvn - [id number] Implanted:Qty: 1 on 08/26/2022 by Ramon West MD at [facility] Graft N/A: Aorta [employer] [id number] 05/07/2025 [id number] / [id number] / [id number] Graft Vasc Glwv Vascutek 16mm 30cm Thor Abdominal Twl Wvn - [id number] Implanted:Qty: 1 on 08/27/2022 by Ramon West MD at [facility] Graft N/A: Aorta [employer] 10/05/2023 [id number] / [id number] / [id number] Patch Vasc [id number] Xenosure Bvn Pericard Sterl Disp - [id number] Implanted:Qty: 1 on 08/26/2022 by Ramon West MD at [facility] Tissue N/A: Aorta [employer] [id number] 03/04/2028 E10P16 / 0000 / [id number] Description:Patch type, size , and expiration date [...] ORDERABLES Final Result HOSPITAL LAB See Below [address] [address] from Last 3 Months or Most Recently Relevant to Health Maintenance Insurance [facility] MEDICARE PART A & B MEDICARE PART A & B [facility] Advance Directives Documents on File Type Date Recorded 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
== END 2025-01-19 14:25 | disposition home or self-care (01) ==
PROVIDERS: PCP Student in an Organized Health Care Education/Training Program
DX: G56.03 Carpal tunnel syndrome, bilateral upper limbs (principal)
CPT/HCPCS: 99213

== ENCOUNTER → 2025-01-19 13:52 | Outpatient (BNVA) | payer MEDICARE, MEDICAID, SELFPAY | PROVIDERS: PCP Student in an Organized Health Care Education/Training Program | DX: G56.03 Carpal tunnel syndrome, bilateral upper limbs (principal) | CPT/HCPCS: 99212 ==

== ENCOUNTER 2025-01-29 07:19 | Outpatient (REF) | payer MEDICARE, MEDICAID, SELFPAY ==
--- OUTSIDE RECORDS SUMMARY | 2025-01-29 07:22 | XMS_ITS | Encounter Summary ---
Author Organization [facility] Address [address] [place] [address] Care Team Providers Care Policy Change Clerk Name Role Phone Ramon West MD Unavailable Ramon West MD Primary Care Provider Encounter Details Date Type Department Care Team (Late st Contact Info) Description 11/11/2018 Scanned Document [facility] 3 ICU [address] [place] [address] Provider, Generic Social History Tobacco [...] documented as of this encounter Care Teams Policy Change Clerk Relationship Specialty Start Date End Date Ramon West MD [address] [address] PCP - General Surgery, Cardiac 10/09/22 Ramon West MD [address] [address] Surgery, Cardiac 08/26/22 Hiren Radford [address] [place] [address] Clinical Coder Cardiovascular Disease 10/02/22 [facility] 230 [place] [address] Primary Care Provider General Medicine 10/02/22 documented as of this encounter
--- OUTSIDE RECORDS SUMMARY | 2025-01-29 07:22 | XMS_ITS | Encounter Summary ---
Author Organization [facility] Address [address] [place] [address] Care Team Providers Care Infantry Unit Leader Name Role Phone Ramon West MD Unavailable [phone] Ramon West MD Primary Care Provider [phone] Reason for Visit * Reason Comments Medication Refill Encounter Details Date Type Department Care Team (Late st Contact Info) Description 10/09/[address] [facility] Cardiothoracic Surgery [address] [address] Kasia Casas PA-C [address] [address] Hypertension, unspecified type Social History [...] type documented in this encounter Care Teams Infantry Unit Leader Relationship Specialty Start Date End Date Ramon West MD 85 [place] [address] PCP - General Surgery, Cardiac 10/09/22 Ramon West MD [address] [address] Surgery, Cardiac 08/26/22 Hiren Radford [address] [place] [address] Svp Research And Strategic Analysis Cardiovascular Disease 10/02/22 [facility] 230 [place] [address] Primary Care Provider General Medicine 10/02/22 documented as of this encounter
--- OUTSIDE RECORDS SUMMARY | 2025-01-29 07:22 | XMS_ITS | Clinical Summary ---
Author Organization [facility] Address [address] [place] [address] Care Team Providers Care Precinct Captain Name Role Phone Ramon West MD Unavailable [phone] Ramon West MD Primary Care Provider Allergies [...] place to sleep or slept in a fpc (including now)? No 08/26/2022 Sex and Gender [...] 50+ (1 of 1 - PCV) 2014 RSV Vaccine 50 years and older and Patients (1 - Risk 50-74 years 1-dose series) 2014 Zoster (Shingles) Vaccine (1 of 2) 2014 Influenza Vaccine 11/05/2024 01/04/2016, 02/06/2015 COVID-19 Vaccine ( season) 2024 07/17/2020, 06/19/2020 Hemoglobin A1C Discontinued 08/24/2022 Chronic Controlled Substance User PDMP Review Discontinued 09/25/2022, 08/24/2022 Hepatitis B Vaccines Aged Out No long er eligible based on patient's age to complete this topic Medical Devices Implanted Type Area Solar Sales Advisor Device Identifier Shelf Expiration Date Model / Serial / Lot [id number] Graft Cv Glwv 10mm 30cm Abd Thrx Hydrolyzable Geltn Poly Wvn - [id number] Implanted:Qty: 1 on 08/26/2022 by Ramon West MD at [facility] Graft N/A: Aorta [employer] [id number] 05/07/2025 [id number] / [id number] / [id number] Graft Vasc Glwv Vascutek 16mm 30cm Thor Abdominal Twl Wvn - [id number] Implanted:Qty: 1 on 08/27/2022 by Ramon West MD at [facility] Graft N/A: Aorta [employer] 10/05/2023 [id number] / [id number] / [id number] Patch Vasc [id number] Xenosure Bvn Pericard Sterl Disp - [id number] Implanted:Qty: 1 on 08/26/2022 by Ramon West MD at [facility] Tissue N/A: Aorta [employer] [id number] 03/04/2028 E10P16 / 0000 / [id number] Description:Patch type, size , and expiration date [...] 9.0(H) <5.7 % 08/25/2022 3:47 AM EDT [facility] Comment: A1c% Interpretation 5.7 - 6.0 Increase risk of diabetes 6.1 - 6.4 Higher risk of diabetes > or = 6.5 Consistent with diabetes Diabetes Care, 33(Supp 1):S1-S61, 2010 Estimated Average Glucose 212 mg/dL 08/25/2022 3:47 AM EDT [facility] Blood specimen / Unknown 08/24/2022 11:29 PM EDT 08/24/2022 11:39 PM EDT us Ritesh Edwards MD LAB BLOOD ORDERABLES Final Result HOSPITAL LAB See Below [address] [address] from Last 3 Months or Most Recently Relevant to Health Maintenance Insurance [facility] MEDICARE PART A & B MEDICARE PART A & B [facility] Advance Directives Documents on File Type Date Recorded Patient Support Clerk Expl anation Advance Directive-Scan 10/07/2022 labs Advance [...] Child, Parent, Adult Sibling, Grandparent) Care Teams Precinct Captain Relationship Specialty Start Date End Date Ramon West MD [address] [id number] PCP - General Surgery, Cardiac 10/09/22 Ramon West MD [address] [address] Surgery, Cardiac 08/26/22 Hiren Radford [address] [place] [address] Brake Operator Helper Cardiovascular Disease 10/02/[address] [address] Primary Care Provider General Medicine 10/02/22
== END 2025-01-29 07:20 | disposition home or self-care (01) ==
LOC: HO.LAB 07:19
PROVIDERS: PCP Student in an Organized Health Care Education/Training Program; Visit Provider Student in an Organized Health Care Education/Training Program
DX: E11.9 Type 2 diabetes mellitus without complications (principal)
CPT/HCPCS: 36415; 83036

== ENCOUNTER 2025-03-11 08:00 | Outpatient (REF) | payer MEDICARE, MEDICAID, SELFPAY ==
--- NOTE | ~2025-03-11 | CT_ITS ---
CLINICAL HISTORY: A49.01 - Methicillin susceptible Staphylococcus aureus infection, unspec... CT Chest with IV contrast: Comparison: 02/10/2024, 07/09/2023 Findings: Heart size is enlarged, with no pericardial effusion. Aorta diameter is normal Pulmonary artery diameter is unremarkable. Lymph nodes: No adenopathy. Trachea and Esophagus: Unremarkable. Lungs: Status post left upper lobectomy, there is volume loss and shift of heart and mediastinum into the left chest. Pleura: No pleural effusion. There is left apical postoperative granulation soft tissue unchanged from previous exam. A small 11 mm nodular soft tissue pleural-based, postoperative scar, in the posterior left lung base is unchanged from previous exam likely residual scar. Skeletal: No fractures. Stable posterior left rib deformity related to prior thoracotomy. Below the diaphragm: Regional visceral organs are unremarkable. Impression: Stable partial left pneumonectomy. Lungs are otherwise clear. No consolidations. 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 This document has been electronically signed by: Parker Aguilar MD on 03/11/2025 16:47:43
--- OUTSIDE RECORDS SUMMARY | 2025-03-11 08:10 | XMS_ITS | Encounter Summary ---
Author Organization [employer] Address [address] [place] [address] 7t [place] [address] Care Team Providers Care Inspector Filter Tip Name Role Phone Celia Torres MD Primary Care Provider [phone] Danielle Kaufman OD Unavailable [phone] Larissa Trujillo DDS Unavailable Unavailabl e Obdulia Restrepo Unavailable [phone] Dustin Falcon MD Unavailable Belinda Sears MD Unavailable [phone] Dipak Urban MD Unavailable [phone] Hiren Radford MD Unavailable [phone] Kenyatta Cruz MD Primary Care Provider [phone] Encounter Details Date Type Department Care Team (Late st Contact Info) Description 10/14/[address] [facility] MEDICINE [address] [place], [place] [phone] Shalonda Srinivasan, PharmD [address] [place], [place] [phone] Social History Tobacco Use Types Packs/Day Years [...] documented as of this encounter Care Teams Inspector Filter Tip Relationship Specialty Start Date End Date Celia Torres MD [address] [place] [address] PCP - General Family Medicine 03/10/12 02/02/25 Kenyatta Cruz MD [address] [place] [address] PCP - General Family Medicine 02/03/25 Danielle Kaufman OD 230 [place] [address] Optometry 09/03/18 Larissa Trujillo DDS 230 [place] [address] Resident Dental Corporate Legal Manager 05/23/13 Obdulia Restrepo [address] [place] [address] [address] [place] [address] Armored Car Guard And Driver 05/27/23 Dustin Falcon MD [address] [place] [address] [address] [place] [address] Orthopaedic Surgery 04/08/23 Belinda Sears MD [address] [place] [address] [address] [place] [address] Referring Physician Family Medicine 07/23/23 Dipak Urban MD [address] [place] [address] Drive 3rd [place] [address] Surgeon General Surgery 04/17/23 Hiren Radford MD 596 [place] [address] Manager Sports Cardiology 09/03/18 Serjio Christianson MD 35[address] [place] [address] Vascular 01/26/24 documented as of this encounter
--- OUTSIDE RECORDS SUMMARY | 2025-03-11 08:10 | XMS_ITS | Encounter Summary ---
Author Organization [facility] Address [address] [place] [address] Care Team Providers Care Nurse Obgyn Name Role Phone Ramon West MD Unavailable Ramon West MD Primary Care Provider [phone] Encounter Details Date Type Department Care Team (Late st Contact Info) Description 11/11/2018 Scanned Document [facility] 3 ICU [address] [place] [address] Provider, Generic Social History Tobacco [...] documented as of this encounter Care Teams Nurse Obgyn Relationship Specialty Start Date End Date Ramon West MD [address] [address] PCP - General Surgery, Cardiac 10/09/22 Ramon Wets MD [address] [address] Surgery, Cardiac 08/26/22 Hiren Radford [address] [place] [address] Corporate Librarian Cardiovascular Disease 10/02/22 [facility] 230 [place] [address] Primary Care Provider General Medicine 10/02/22 documented as of this encounter
--- OUTSIDE RECORDS SUMMARY | 2025-03-11 08:10 | XMS_ITS | Encounter Summary ---
Author Organization [employer] Address [address] [place] [address] 7t [place] [address] Care Team Providers Care Instructor Product Inspection Name Role Phone Celia Torres MD Primary Care Provider [phone] Danielle Kaufman OD Unavailable [phone] Larissa Trujillo DDS Unavailable Unavailabl e Obdulia Restrepo Unavailable [phone] Dustin Falcon MD Unavailable Belinda Sears MD Unavailable [phone] Dipak Urban MD Unavailable [phone] Hiren Radford MD Unavailable [phone] Kenyatta Cruz MD Primary Care Provider [phone] Encounter Details Date Type Department Care Team (Latest Contact Info) Description 10/24/2020 Abstract [facility] CONVERSION[facility] Dental, Provider, DDS Social History Tobacco [...] on filedocumented in this encounter Care Teams Instructor Product Inspection Relationship Specialty Start Date End Date Celia Torres MD [address] [place] [id number] PCP - General Family Medicine 03/10/12 02/02/25 Kenyatta Cruz MD [address] [place] [address] PCP - General Family Medicine 02/03/25 Danielle Kaufman OD 230 [place] [address] Optometry 09/03/18 Larissa Trujillo DDS 230 [place] [address] Resident Dental Audio Video Repairer 05/23/13 Obdulia Restrepo [address] [place] [address] [address] [place] [address] Door Closer 05/27/23 Dustin Falcon MD [address] [place] [address] [address] [place] [address] Orthopaedic Surgery 04/08/23 Belinda Sears MD 575 [facility] 404 [place] [address] Referring Physician Family Medicine 07/23/23 Dipak Urban MD [address] [place] [address] Drive 3rd [place] [address] Surgeon General Surgery 04/17/23 Hiren Radford MD [address] [place] [address] Drapery Seamstress Cardiology 09/03/18 Serjio Christianson MD 3500 [place] [address] Vascular 01/26/24 documented as of this encounter
--- OUTSIDE RECORDS SUMMARY | 2025-03-11 08:10 | XMS_ITS | Clinical Summary ---
Author Organization [employer] Address [address] [place] [address] 7t [place] [address] Care Team Providers Care Shield Cleaner Name Role Phone Danielle Kaufman OD Unavailable [phone] Larissa Trujillo DDS Unavailable Unavailabl e Obdulia Restrepo Unavailable [phone] Dustin Falcon MD Unavailable Belinda Sears MD Unavailable [phone] Dipak Urban MD Unavailable [phone] Hiren Radford MD Unavailable Kenyatta Cruz MD Primary Care Provider [phone] Allergies Active Allergy Reactions Criticality Noted Date [...] po BID 60 tablet 3 024 Active rosuvastatin (Crestor) 10 MG tabletIndications :Hyperlipidemia, [...] procedure (2 tabs) 6 tablet 025 Active aspirin (Aspirin Adult Low Strength) 81 MG EC tabletIndications :Hypertension, unspecified type TAKE ONE TABLET EVERY MORNING FOR BLOOD 90 tablet 025 Active meclizine (Antivert) 25 MG tablet 1 tab po daily 60 tablet 025 Active cyanocobalamin (Vitamin B-12) 1000 MCG tabletIndications :Benign hypertension TAKE ONE TABLET EVERY MORNING (VITAMIN) 90 tablet 025 Active Jardiance 10 MG TAKE ONE TABLET EVERY MORNING 30 tablet 1 025 Active losartan (Cozaar) 100 MG tablet TAKE ONE TABLET EVERY MORNING 30 tablet 5 Active Tradjenta 5 MG tablet TAKE ONE TABLET EVERY MORNING 30 tablet 1 Active losartan (Cozaar) 100 MG tablet TAKE ONE TABLET EVERY MORNING 30 tablet 5 025 2024 Discontinued Tradjenta 5 MG tablet TAKE ONE TABLET EVERY MORNING 30 tablet 1 025 2024 Discontinued empagliflozin (Jardiance) 10 MG Take 1 tablet (10 mg) by mouth in the morning. 30 tablet 1 025 2024 Discontinued Active Problems Problem Noted [...] surgery on t he circ sys 09/16/2022 [facility] (current) use of aspirin 09/16/2022 [facility] (current) use of oral hypoglycemic chasity gs [...] Encounters Date Type Department Care Team Description 03/05/2025 Refill [facility] CHC MED & PEDS [address] [place], [place] [phone] Celia Torres MD 01/28/2025 Telephone [facility] MEDICINE [address] [place], [place] [phone] Celia Torres MD lab work request 01/14/2025 Refill [facility] MED & PEDS [address] [place], [place] [phone] Lali Croft FNP Benign hypertension from Last 3 Months Immunizations Immunization Administration [...] Foot Exam 1974 Hepatitis C Screening 1982 RSV Patients and Patients Aged 60 years or older (1 - Risk 50-74 years 1-dose series) 2014 Pneumococcal Vaccine: 50+ Years (2 of 2 - PCV) 05/13/2015 05/13/2014 Diabetes: Urine Protein Screening 04/27/2022 04/27/2021, 04/27/2021, 03/01/2020 COVID-19 Vaccine ( season) 2024 01/23/2024, 07/17/2020, 06/19/2020 Influenza Vaccine (#1) 2024 6, 02/12/2015, 02/06/2015 FOBT 02/09/2025 02/10/2024 Dental Oral Exam 02/10/2025 08/09/2024, 02/11/2024 Dental Prophylaxis 02/10/2025 08/09/2024, 02/11/2024 Dental X-Ray: Bitewings 02/11/2025 02/11/2024 Diabetes: Hemoglobin A1C 05/01/2025 025, 10/13/2024, 07/14/2024, Additional history exists SDOH Screening 07/06/2025 07/06/2024 Lipid Panel 07/22/2025 [...] this topic Zoster Vaccines Completed 03/03/2019, 12/25/2018 HIB Vaccines Aged Out No longer eligi [...] Priority Date/Time Associated Diagnosis Comments HEMOGLOBIN A1C Routine 01/29/2025 7:29 AM EDT Type 2 diabetes mellitus without complication, without long-term current use of insulin ([facility]) PROPHYLAXIS - ADULT Routine 08/09/2024 9 :00 AM EDT PERIODIC ORAL EVALUATION - ESTABLISHED PATIENT Routine 08/09/2024 9:00 AM EDT LIPID PANEL, STANDARD Routine 07/22/2024 8:06 AM EDT Type 2 diabetes mellitus without complication, without long-term current use of insulin ([facility]) INTRAORAL - COMPLETE SERIES OF RADIOGRAPHIC IMAGES Routine 02/11/2024 8:00 AM EST LAB COLOGUARD COLON CANCER SCREEN Routine 02/10/2024 6:22 AM EST Encounter for screening for malignant neoplasm of colon ALBUMIN, RANDOM URINE W/CREATININE Routine 04/27/2021 9:00 AM EST from Last 3 Months or Most Recently Relevant to Health Maintenance Results * (ABNORMAL) Hemoglobin A1c (01/29/2025 7:29 AM EDT) Hemoglobin A1c 8.0(H) <6.0 % [facility] Comment:Hemoglobin A1C Refer ence Range Adults: 4.8 - 6.0 % Non diabetic: < 6.0 % Goal: < 7.0 %Additional Action Suggested: > 8.0 %Note: Hemoglobin A1c results are invalid for patients with abnormal amounts of HbF. Blood transfusions may impact the HbA1c concentration in the patient sample. Estimated Average Glucose 183 mg/dL [facility] Comment:eAG = Estimated ave rage glucose which is %A1C expressed asaverage glucose, using the formula of the [id number] Glucose study (ADAG), Diabetes Care, Vol.31,#8,Nov. 2007 Blood Venous blood specimen / Unknown 01/29/2025 7:29 AM EDT 01/29/2025 7:29 AM EDT us Celia Torres MD LAB BLOOD ORDERABLES Final Resul t [facility] [address] [place] [phone] * (ABNORMAL) Lipid Panel, Standard (07/22/2024 8:06 AM EDT) Triglycerides 52 <150 mg/dL [facility] Comment:Desirable Triglyceri de: less than 150 mg/dLBorderline High Triglyceride 150-199 mg/dLHigh Triglyceride: 200-499 mg/dLVery High Triglyceride: greater than or equal to 5OO mg/dL Cholesterol 109 <200 mg/dL [facility] Comment:Desirable Cholestero l: less than 200 mg/dLBorderline High Cholesterol: 200-239 mg/dLHigh Cholesterol: greater than 239 mg/dL LDL Cholesterol Calculated 68 <100 mg/dL [facility] Comment:Desirable LDL: less than 100 mg/dLNear Optimal/Above Optimal LDL: 110- 129 mg/dLBorderline High LDL: 130-159 mg/dLHigh LDL: 160-189 mg/dLVery High LDL: greater than or equal to 190 mg/dL HDL Cholesterol 31(L) >40 mg/dL [facility] Comment:Desirable HDL: great er than 40 mg/dL Note: This HDL assay may give artificially low results in patients with liver disease. Blood Venous blood specimen / Unknown 07/22/2024 8:06 AM EDT 07/22/2024 8:06 AM EDT us Celia Torres MD LAB BLOOD ORDERABLES Final Resul t [facility] [address] [place] [address] [phone] * (ABNORMAL) Cologuard?? colon cancer screening (02/10/2024 6:22 AM EST) Cologuard Result Positive( A) Negative 02/17/2024 8:49 PM EST [facility] (CLIA #:[id number]) Comment: POSITIVE TEST RESULT. A positive Cologuard [...] were screened with both Cologuard and colonoscopy. (Imperiale T. et al, N Engl J Med 2014;370(14):9477-9725.) Cologuard may produce a false negative or false positive result (no colorectal cancer or precancerous polyp present at colonoscopy follow up). A negative Cologuard test result does not guarantee the absence of CRC or advanced adenoma (pre-cancer). The current Cologuard screening interval is every 3 years. ([place] [employer] Society and U.S. Multi-Society Task Force). Cologuard performance data in a 10,000 patient pivotal study using colonoscopy as the reference method can be accessed at the following location: [email or web address]/results. Additional description of the Cologuard test process, warnings and precautions can be found at www.Yarraard.com. Stool specimen (specimen) 02/10/2024 6:22 AM EST 02/11/2024 12:14 PM EST Celia Torres MD LAB MOLECULAR DIAGNOSTICS ORDERA BLES Final Result Performing Organization Address [facility] de Phone Number [facility] (CLIA #:[id number]) [address] [place] [address], * (ABNORMAL) ALBUMIN, RANDOM URINE W/CREATININE (04/27/2021 [...] URINE ORDERABLES Final Resul t [facility] [address] from Last 3 Months or Most Recently Relevant to Health Maintenance Insurance [facility] STANDARD MEDICARE DENTAL-[facility] MEDICAID STAND ADULT Care Teams Shield Cleaner Relationship Specialty Start Date End Date Kenyatta Cruz MD [address] [place] [address] PCP - General Family Medicine 02/03/25 Danielle Kaufman OD [address] [place] [address] Optometry 09/03/18 Larissa Trujillo DDS [address] [place] [address] Resident Dental Sustainability Project Manager 05/23/13 Obdulia Restrepo [address] [place] [address] [address] [place] [address] Planetarium Sky Show Technician 05/27/23 Dustin Falcon MD [address] [place] [address] 203 [place] [address] Orthopaedic Surgery 04/08/23 Belinda Sears MD 575 [facility] 404 [place] [address] Referring Physician Family Medicine 07/23/23 Dipak Urban MD [address] 3rd [place] [address] Surgeon General Surgery 04/17/23 Hiren Radford MD [address] [place] [address] Grocery Buyer Cardiology 09/03/18 Serjio Christianson MD [address] [place] [address] Vascular 01/26/24
--- OUTSIDE RECORDS SUMMARY | 2025-03-11 08:10 | XMS_ITS | Encounter Summary ---
Author Organization [employer] Address [address] [facility] 7t [place] [address] Care Team Providers Care House Parent Name Role Phone Danielle Kaufman OD Unavailable [phone] Larissa Trujillo DDS Unavailable Unavailabl e Obdulia Restrepo Unavailable [phone] Dustin Falcon MD Unavailable Belinda Sears MD Unavailable [phone] Dipak Urban MD Unavailable [phone] Hiren Radford MD Unavailable [phone] Kenyatta Cruz MD Primary Care Provider [phone] Reason for Visit * Reason Comments Med Refill Encounter Details Date Type Department Care Team (Late st Contact Info) Description 03/05/2025 Refill [facility] CHC MED & PEDS [address] [place], [place] [phone] Celia Torres MD 505 [place], [place] [phone] Social History Tobacco Use Types Packs/Day Years [...] documented as of this encounter Care Teams House Parent Relationship Specialty Start Date End Date Kenyatta Cruz MD 505 [place] [address] PCP - General Family Medicine 02/03/25 Danielle Kaufman OD 230 [place] [address] Optometry 09/03/18 Larissa Trujillo DDS [address] [place] [address] Resident Dental Direct Care Counselor 05/23/[address] [place] [address] [address] [place] [address] Sugar Refinery Supervisor 05/27/23 Dustin Falcon MD [address] [place] [address] [address] [place] [address] Orthopaedic Surgery 04/08/23 Belinda Sears MD [address] [facility] [address] [place] [address] Referring Physician Family Medicine 07/23/23 Dipak Urban MD [address] [place] [address] Drive 3rd [place] [address] Surgeon General Surgery 04/17/23 Hiren Radford MD [address] [place] [address] Sugar Sampler Cardiology 09/03/18 Serjio Christianson MD [address] [place] [address] Vascular 01/26/24 documented as of this encounter
--- OUTSIDE RECORDS SUMMARY | 2025-03-11 08:11 | XMS_ITS | Encounter Summary ---
Author Organization [employer] Address [address] [place] [address] 7t [place] [address] Care Team Providers Care Wink Cutter Operator Name Role Phone Celia Torres MD Primary Care Provider [phone] Danielle Kaufman OD Unavailable [phone] Larissa Trujillo DDS Unavailable Unavailabl e Obdulia Restrepo Unavailable [phone] Dustin Falcon MD Unavailable Belinda Sears MD Unavailable [phone] Dipak Urban MD Unavailable [phone] Hiren Radford MD Unavailable [phone] Kenyatta Cruz MD Primary Care Provider [phone] Reason for Visit * Reason Onset Date Comments Med Refill 11/11/2022 Encounter Details Date Type Department Care Team (Late st Contact Info) Description 11/11/2022 Telephone [facility] MED & PEDS 505 [place], [place] [phone] Celia Torres MD 505 [place] [address] Med Refill Social History Tobacco Use Types [...] (Ultram) 50 MG tablet Please sent to [email or web address]14 - [place] - [address] [facility] [place] documented in this encounter Plan of Treatment Not on file documented as of this encounter Visit Diagnoses Not on filedocumented in this encounter Additional Health Concerns Assessment Noted Time PHQ-9 Depression Total Score: 1 07/10/19 23 10:12 AM EDT documented as of this encounter Care Teams Wink Cutter Operator Relationship Specialty Start Date End Date Celia Torres MD 230 [place] [address] PCP - General Family Medicine 03/10/12 02/02/25 Kenyatta Cruz MD 505 [place] [address] PCP - General Family Medicine 02/03/25 Danielle Kaufman OD 230 [place] [address] Optometry 09/03/18 Larissa Trujillo DDS 230 [place] [address] Resident Dental Custodian Athletic Equipment 05/23/13 Obdulia Restrepo [address] [place] [address] [place] [address] Automatic Packer Operator 05/27/23 Dustin Falcon MD [address] [place] [address] [address] [place] [address] Orthopaedic Surgery 04/08/23 Belinda Sears MD 575 [facility] 404 [place] [address] Referring Physician Family Medicine 07/23/23 Dipak Urban MD [address] 3rd [place] [address] Surgeon General Surgery 04/17/23 Hiren Radford MD 596 [place] [address] Rock Wool Applicator Cardiology 09/03/18 Serjio Christianson MD 35[address] [place] [address] Vascular 01/26/24 documented as of this encounter
--- OUTSIDE RECORDS SUMMARY | 2025-03-11 08:11 | XMS_ITS | Encounter Summary ---
Author Organization [employer] Address [address] [facility] 7t [place] [address] Care Team Providers Care Packaging Mechanic Name Role Phone Celia Torres MD Primary Care Provider [phone] Danielle Kaufman OD Unavailable [phone] Larissa Trujillo DDS Unavailable Unavailabl e Obdulia Restrepo Unavailable [phone] Dustin Falcon MD Unavailable Belinda Sears MD Unavailable [phone] Dipak Urban MD Unavailable [phone] Hiren Radford MD Unavailable [phone] Kenyatta Cruz MD Primary Care Provider [phone] Reason for Visit * Reason Comments Med Refill Encounter Details Date Type Department Care Team (Late st Contact Info) Description 02/10/2023 Refill [facility] CHC MED & PEDS 505 [place], [place] [phone] Celia Torres MD 505 [place], [place] [phone] Chronic pain syndrome (Primary Dx) Social History [...] documented as of this encounter Care Teams Packaging Mechanic Relationship Specialty Start Date End Date Celia Torres MD 230 [place] [address] PCP - General Family Medicine 03/10/12 02/02/25 Kenyatta Cruz MD [address] [place] [address] PCP - General Family Medicine 02/03/25 Danielle Kaufman OD 230 [place] [address] Optometry 09/03/18 Larissa Trujillo DDS 230 [place] [address] Resident Dental Store Administrative Assistant 05/23/13 Obdulia Restrepo [address] [place] [address] Institutional Research Coordinator 05/27/23 Dustin Falcon MD [address] [place] [address] [address] [place] [address] Orthopaedic Surgery 04/08/23 Belinda Sears MD 575 [facility] 404 [place] [address] Referring Physician Family Medicine 07/23/23 Dipak Urban MD [address] [place] [address] 3rd [place] [address] Surgeon General Surgery 04/17/23 Hiren Radford MD 5[address] [place] [address] Electro Winning Operator Cardiology 09/03/18 Serjio Christianson MD 3500 [place] [address] Vascular 01/26/24 documented as of this encounter
--- OUTSIDE RECORDS SUMMARY | 2025-03-11 08:11 | XMS_ITS | Encounter Summary ---
Author Organization [employer] Address [address] [place] [address] 7t [place] [address] Care Team Providers Care Certified Medical Transcriptionist Name Role Phone Celia Torres MD Primary Care Provider [phone] Danielle Kaufman OD Unavailable [phone] Larissa Trujillo DDS Unavailable Unavailabl e Obdulia Restrepo Unavailable [phone] Dustin Falcon MD Unavailable Belinda Sears MD Unavailable [phone] Dipak Urban MD Unavailable [phone] Hiren Radford MD Unavailable [phone] Kenyatta Cruz MD Primary Care Provider [phone] Reason for Visit * Reason Comments Med Refill Encounter Details Date Type Department Care Team (Late st Contact Info) Description 11/15/2022 Refill [facility] CHC MED & PEDS [address] [place], [place] [phone] Celia Torres MD 505 [place] [address] S/P aortic bifurcation bypass graft Social History [...] as of this encounter Care Teams Certified Medical Transcriptionist Relationship Specialty Start Date End Date Celia Torres MD 230 [place] [address] PCP - General Family Medicine 03/10/12 02/02/25 Kenyatta Cruz MD [address] [place] [address] PCP - General Family Medicine 02/03/25 Danielle Kaufman OD 230 [place] [address] Optometry 09/03/18 Larissa Trujillo DDS [address] [place] [address] Resident Dental Wire Sawyer 05/23/13 Obdulia Restrepo [address] [place] [address] Dr [address] [place] [address] Sterile Processing Technologist 05/27/23 Dustin Falcon MD [address] [place] [address] Dr [address] [place] [address] Orthopaedic Surgery 04/08/23 Belinda Sears MD 575 [facility] [address] [place] [address] Referring Physician Family Medicine 07/23/23 Dipak Urban MD [address] [place] [address] 3rd [place] [address] Surgeon General Surgery 04/17/23 Hiren Radford MD 5[address] [place] [address] Order Entry Specialist Cardiology 09/03/18 Serjio Christianson MD 3500 [place] [address] Vascular 01/26/24 documented as of this encounter
--- OUTSIDE RECORDS SUMMARY | 2025-03-11 08:11 | XMS_ITS | Encounter Summary ---
Author Organization [employer] Address [address] [facility] 7t [place] [address] Care Team Providers Care Billing Specialist Name Role Phone Celia Torres MD Primary Care Provider [phone] Danielle Kaufman OD Unavailable [phone] Larissa Trujillo DDS Unavailable Unavailabl e Obdulia Restrepo Unavailable [phone] Dustin Falcon MD Unavailable Belinda Sears MD Unavailable [phone] Dipak Urban MD Unavailable [phone] Hiren Radford MD Unavailable [phone] Kenyatta Cruz MD Primary Care Provider [phone] Reason for Visit * Reason Onset Date Comments Med Refill 02/07/2023 Encounter Details Date Type Department Care Team (Late st Contact Info) Description 02/07/2023 Refill [facility] CHC MED & PEDS 505 [place], [place] [phone] Celia Torres MD 505 [place] [address] Social History Tobacco Use Types Packs/Day Years [...] 3:59 PM EDT TC to pt. Initial MEDICARE INTERVIEWER [place] scheduled for 04/08/22 @ 2:30pm. * [...] documented as of this encounter Care Teams Billing Specialist Relationship Specialty Start Date End Date Celia Torres MD 230 [place] [address] PCP - General Family Medicine 03/10/12 02/02/25 Kenyatta Cruz MD 505 [place] [address] PCP - General Family Medicine 02/03/25 Danielle Kaufman OD 230 [place] [address] Optometry 09/03/18 Larissa Trujillo DDS 230 [place] [address] Resident Dental Counter Manager 05/23/13 Obdulia Restrepo [address] [place] [address] [address] [place] [address] Follow Up Rep 05/27/23 Dustin Falcon MD [address] [place] [address] [address] [place] [address] Orthopaedic Surgery 04/08/23 Belinda Sears MD 575 [facility] 404 [place] [address] Referring Physician Family Medicine 07/23/23 Dipak Urban MD [address] [place] [address] Drive 3rd [place] [address] Surgeon General Surgery 04/17/23 Hiren Radford MD 596 [place] [address] Position Classification Manager Cardiology 09/03/18 Serjio Christianson MD [address] [place] [address] Vascular 01/26/24 documented as of this encounter
--- OUTSIDE RECORDS SUMMARY | 2025-03-11 08:11 | XMS_ITS | Encounter Summary ---
Author Organization [employer] Address [address] [place] [address] 7t [place] [address] Care Team Providers Care Sharepoint Developer Name Role Phone Celia Torres MD Primary Care Provider Danielle Kaufman OD Unavailable [phone] Larissa Trujillo DDS Unavailable Unavailabl e Obdulia Restrepo Unavailable [phone] Dutsin Falcon MD Unavailable Belinda Sears MD Unavailable [phone] Dipak Urban MD Unavailable [phone] Hiren Radford MD Unavailable [phone] Kenyatta Cruz MD Primary Care Provider Reason for Visit * Reason Onset Date Comments triage 05/15/2022 Encounter Details Date Type Department Care Team (Late st Contact Info) Description 05/15/2022 Telephone [facility] MEDICINE 230 [place] [address] Celia Torres MD 505 [place], [place] [phone] triage Social History Tobacco Use Types Packs/Day [...] returned to patient who does not need appraiser real estate. Patient reports that he is having a [...] self and will access emergent care at [facility] now. Reviewed with pt to contact [...] on filedocumented in this encounter Care Teams Sharepoint Developer Relationship Specialty Start Date End Date Celia Torres MD [address] [place] [address] PCP - General Family Medicine 03/10/12 02/02/25 Kenyatta Cruz MD 505 [place] [address] PCP - General Family Medicine 02/03/25 Shae DanielleSYLVIA 230 [place] [address] Optometry 09/03/18 Larissa Trujillo DDS 230 [place] [address] Resident Dental Elementary Summer School Teacher 05/23/13 Obdulia Restrepo [address] [facility] [address] [place] [address] Job Lithographer 05/27/23 Dustin Falcon MD [address] [place] [address] 203 [place] [address] Orthopaedic Surgery 04/08/23 Belinda Sears MD [address] [facility] 404 [place] [address] Referring Physician Family Medicine 07/23/23 Dipak Urban MD [address] [place] [address] 3rd [place] [address] Surgeon General Surgery 04/17/23 Hiren Radford MD 596 [place] [address] Tabular Typist Cardiology 09/03/18 Serjio Christianson MD 3500 [place] [address] Vascular 01/26/24 documented as of this encounter
--- OUTSIDE RECORDS SUMMARY | 2025-03-11 08:11 | XMS_ITS | Encounter Summary ---
Author Organization [employer] Address [address] [place] [address] [address] [place] [address] Care Team Providers Care Pharmaceutical Sales Name Role Phone Celia Torres MD Primary Care Provider [phone] Danielle Kaufman OD Unavailable [phone] Larissa Trujillo DDS Unavailable Unavailabl e Obdulia Restrepo Unavailable [phone] Dustin Falcon MD Unavailable Belinda Sears MD Unavailable [phone] Dipak Urban MD Unavailable [phone] Hiren Radford MD Unavailable [phone] Kenyatta Cruz MD Primary Care Provider [phone] Encounter Details Date Type Department Care Team (Late st Contact Info) Description 04/18/2022 Orders Only [facility] [address] [place], [place] [phone] Sherice Lozano LPN Social History Tobacco Use [...] EDT) Ova and Parasite Trichrome SEE NOTE [facility] Comment: OVA AND PARASITES, CONC AND PERM SMEAR Micro Number: [id number] Test Status: Final Specimen Source: Stool Specimen [...] infection. For additional information, please refer to https://education.Vello App/faq/CKV699 (This link is being provided for informational/ educational purposes only.)THIS TEST WAS PERFORMED AT:[facility] [address] [id number] JUDSON,MD 08/24/2022 7:59 PM EDT 08/24/2022 8:24 PM EDT us [facility] Exter nal Provider LAB MICROBIOLOGY - GENERAL ORDERABLES Final Result [facility] [address] [place] [phone] * Acid-Fast Smear (08/24/2022 6:10 PM EDT) 08/24/2022 6:10 PM EDT 08/24/2022 6:24 PM EDT Comment:Sputum Narrative [facility] - 10/23/2022 2:15 PM EDT Acid-Fast Smear Acid-Fast Smear Acid-Fast Smear No acid-fast bacilli seen. Testing performed at: [address] [address] Acid-Fast Culture null Acid-Fast Culture null Acid-Fast Culture null Acid-Fast Culture null Acid-Fast Culture null Specimen Source: Sputum [facility] Exter nal Provider LAB MICROBIOLOGY - GENERAL ORDERABLES Final Result Performing Organization Address City/[facility]/ZIP Co de Phone Number [facility] [address] [place] [phone] * Type and screen (08/24/2022 4:17 PM EDT) Blood Type OP [facility] Antibody Screen NEGATIVE [facility] 08/24/2022 4:17 PM EDT 08/24/2022 4:27 PM EDT [facility] External Provider LAB BLO OD BANK TEST ORDERABLES Final Result Performing Organization Address [facility] Co de Phone Number [facility] [address] [place] [phone] * (ABNORMAL) Prothrombin Time-INR (08/24/2022 4:17 PM EDT) Prothrombin Time 15.0(H) 10.0 - 13.1 SEC [facility] INTERNATIONAL NORM RATIO 1.3(H) 0.9 - 1.1 [facility] Comment:INTERNATIONAL NORMAL IZED RATIO (INR) [...] 4:17 PM EDT 08/24/2022 4:25 PM EDT [facility] External Provider LAB BLO OD ORDERABLES Final Result Performing Organization Address [facility]/ZIP Co de Phone Number [facility] [address] [place] [address] [phone] * Gram stain (08/24/2022 2:43 PM EDT) 08/24/2022 2:43 PM EDT 08/24/2022 2:45 PM EDT Comment:Sputum Narrative [facility] - 08/27/2022 9:28 AM EDT [...] Staph Aureus: Vancomycin 1(S) Specimen Source: Sputum [facility] Exter nal Provider LAB MICROBIOLOGY - GENERAL ORDERABLES Final Result Performing Organization Address [facility]/ZIP Co de Phone Number [facility] [address] [place] [address] [phone] * Gastrointestinal panel (08/24/2022 12:11 PM EDT) Campylobacter Not Detected Not Detect. [facility] Plesiomonas shigelloides Not Detected Not Detect. [facility] Salmonella Not Detected Not Detect. [facility] Vibrio Not Detected Not Detect. [facility] Vibrio cholerae Not Detected Not Detect. [facility] YERSINIA ENTEROCOLITICA Not Detected Not Detect. [facility] Enteroaggregative E. coli (EAEC) Not Detected Not Detect. [facility] Enteropathogenic E. coli (EPEC) Not Detected Not Detect. [facility] Enterotoxigenic E. coli (ETEC) lt/st Not Detected Not Detect. [facility] Shiga-like toxin-producing E. coli (STEC) stx1/stx2 Not Detected Not Detect. [facility] E coli O157 Not applicable Not Detect. [facility] Comment:E. coli containing t he O157 antigen are a subset ofShiga-like toxin- producing E. coli (STEC). Shigella/Enteroinvasive E. coli (EIEC) Not Detected Not Detect. [facility] Cryptosporidium Not Detected Not Detect. [facility] Cyclospora cayetanensis Not Detected Not Detect. [facility] Entamoeba histolytica Not Detected Not Detect. [facility] Giardia lamblia Not Detected Not Detect. [facility] Adenovirus F 40/41 Not Detected Not Detect. [facility] Astrovirus Not Detected Not Detect. [facility] Norovirus GI/GII Not Detected Not Detect. [facility] Rotavirus A Not Detected Not Detect. [facility] Sapovirus Not Detected Not Detect. [facility] Comment: All results must be [...] assay is performed by Multiplexed PCR, utilizing [employer] Film Array. 08/24/2022 12:1 1 PM EDT 08/24/2022 12:15 PM EDT [facility] Exter nal Provider LAB MICROBIOLOGY - GENERAL ORDERABLES Final Result Performing Organization Address [facility] Co de Phone Number [facility] [address] [place] [phone] * CDiff Gene PCR (08/24/2022 12:11 PM EDT) CDiff Gene PCR NEGATIVE Negative [facility] Comment:If C. difficile stro ngly suspected despite one negativetest, a second test may be sent vs. empiric treatment forC. difficile infection. 08/24/2022 12:1 1 PM EDT 08/24/2022 12:15 PM EDT [facility] Exter nal Provider LAB BODY FLUIDS AND STOOLS ORDERABLES Final Result Performing Organization Address [facility] Co de Phone Number [facility] [address] [place] [phone] * Blood Culture (Second) (08/24/2022 11:14 AM EDT) 08/24/2022 11:1 4 AM EDT 08/24/2022 11:20 AM EDT Comment:Blood Narrative [facility] - 08/26/2022 8:15 AM EDT [...] Culture (Second) Gram stain reviewed by a Property Coordinator Staphylococcus aureus Refer [facility] ORG #1: Susceptibility testing of same organism(s) from Refer [facility] similar site will not be repeated within 4 days. Results of Blood Culture gram stain called to and read back by EMILEE at 2113 on 08/24/22 by RADHA. Specimen Source: Blood us [facility] Exter nal Provider LAB MICROBIOLOGY - GENERAL ORDERABLES Final Result Performing Organization Address City/State/[facility] Co de Phone Number [facility] [address] [place] [phone] * Blood Culture (First) (08/24/2022 11:13 AM EDT) 08/24/2022 11:1 3 AM EDT 08/24/2022 11:17 AM EDT Comment:Blood Narrative [facility] - 08/26/2022 8:14 AM EDT [...] Culture (First) Gram stain reviewed by a Property Coordinator Staphylococcus aureus Results of Blood Culture gram stain called to and read back by EMILEE at 2117 on 08/24/22 by RADHA. Staphylococcus aureus: Clindamycin <=0.25(S) Staphylococcus aureus: Erythromycin <=0.25(S) Staphylococcus aureus: Levofloxacin <=0.12(S) Staphylococcus aureus: Oxacillin 0.5(S) Staphylococcus aureus: Penicillin-G >=0.5(R) Staphylococcus aureus: Tetracycline <=1(S) Staphylococcus aureus: Trimethoprim/Sulfamethoxazole <=10(S) Specimen Source: Blood [facility] Exter nal Provider LAB MICROBIOLOGY - GENERAL ORDERABLES Final Result Performing Organization Address [facility] Co de Phone Number [facility] [address] [place] [phone] * Magnesium (08/24/2022 11:13 AM EDT) Pathologist [facility] Magnesium 1.6 1.6 - 2.6 mg/dL [facility] 08/24/2022 11:1 3 AM EDT 08/24/2022 11:17 AM EDT [facility] External Provider LAB BLO OD ORDERABLES Final Result Performing Organization Address [facility] Phone Number [facility] [address] [place] [phone] * Lactic Acid (08/24/2022 11:13 AM EDT) [facility] Lactic Acid 1.8 0.5 - 2.0 mmol/L [facility] 08/24/2022 11:1 3 AM EDT 08/24/2022 11:17 AM EDT [facility] External Provider LAB BLO OD ORDERABLES Final Result Performing Organization Address [facility] de Phone Number [facility] [address] [place] [phone] * SARS-CoV-2 RNA, Influenza A/B, and RSV RNA, Ql NAAT (08/24/2022 10:43 AM EDT) [facility] Influenza A PCR NEGATIVE Negative [facility] Influenza B PCR NEGATIVE Negative [facility] Resp Syncy Virus RNA Qual PCR NEGATIVE Negative [facility] SARS COV2 PCR NEGATIVE Negative [facility] Comment:All test results mus t [...] use by authorized laboratories.Testing performed on the [employer] GeneXpert utilizingreal-time RT-PCR.All SARS CoV2 and positive influenza A/B results arereported to [facility]. 08/24/2022 10:4 3 AM EDT 08/24/2022 10:46 AM EDT [facility] Exter nal Provider LAB MICROBIOLOGY - GENERAL ORDERABLES Final Result Performing Organization Address [facility] Co de Phone Number [facility] [address] [place] [address] [phone] * Lipase (08/24/2022 10:33 AM EDT) Pathologist [facility] Lipase 26 8 - 78 U/L [facility] 08/24/2022 10:3 3 AM EDT 08/24/2022 10:38 AM EDT [facility] External Provider LAB BLO OD ORDERABLES Final Result Performing Organization Address [facility] de Phone Number [facility] [address] [place] [address] [phone] * (ABNORMAL) Comprehensive Metabolic Panel (08/24/2022 10:33 AM EDT) Sodium 138 135 - 145 mmol/L [facility] Potassium 3.6 3.3 - 5.1 mmol/L [facility] Chloride 104 96 - 108 mmol/L [facility] Carbon Dioxide 23 22 - 29 mmol/L [facility] Anion Gap 15 12 - 20 [facility] Urea Nitrogen (BUN) 13 9 - 16 mg/dL [facility] Creatinine, Serum 1.33 0.5 - 1.4 mg/dL [facility] Creatinine Clr Calc Pharmacy 67.2 [facility] Comment:eGFR (calculated fro m the MDRD study equation) and eCrCl(calculated from the Cockcroft-Gault equation) are based ondifferent parameters and may not yield comparable results.If eCrCl result is absurd, please check patient'sheight/weight. Estimated Glomerular Filt Rate 55 [facility] Comment:NOTE: For -Am erican individuals, multiply the result by 1.210.Chronic Kidney Disease: Estimated GFR < 60 mL/min/1.10x2Dlmgtz Kidney Disease: Estimated GFR < 15 mL/min/1.73m2 Glucose 264(H) 60 - 115 mg/dL [facility] Calcium 9.5 8.4 - 10.2 mg/dL [facility] Bilirubin, Total 0.8 0.0 - 1.0 mg/dL [facility] Aspartate Amino Transferase 32 5 - 37 U/L [facility] Alanine Aminotransferase 27 0 - 40 U/L [facility] Total Protein 6.5 6.5 - 8.0 g/dL [facility] Albumin Level 3.9 3.5 - 5.0 g/dL [facility] Alkaline Phosphatase 68 39 - 117 U/L [facility] 08/24/2022 10:3 3 AM EDT 08/24/2022 10:38 AM EDT us [facility] External Provider LAB BLO OD ORDERABLES Final Result [facility] [address] [place] [address] [phone] * (ABNORMAL) Complete Blood Count Manual Diff (08/24/2022 10:33 AM EDT) White Blood Count 9.4 4.8 - 10.8 X10*3/uL [facility] Red Blood Count 5.40 4.60 - 5.80 X10*6/uL [facility] Hemoglobin 15.7 14.0 - 18.0 g/dl [facility] Hematocrit 46.5 42.0 - 52.0 % [facility] Mean Corpuscular Volume 86.1 80.0 - 98.0 fL [facility] Mean Corpuscular Hemoglobin 29.1 27.0 - 33.0 pg [facility] Mean Corpuscular HGB Conc 33.8 31.0 - 36.0 g/dl [facility] Red Cell Distribution Width 12.7 11.0 - 16.0 % [facility] Platelet Count 130(L) 160 - 400 X10*3/uL [facility] Mean Platelet Volume 11.2 9.4 - 12.4 fL [facility] NRBC Pct Auto 0.0 0.0 - 0.2 /100WBC [facility] NRBC Abs Auto 0.000 0.0 - 0.012 X10*3/uL [facility] Neutrophils % Manual 57 45 - 73 % [facility] Band Neutrophils Percent 30(H) 3 - 5 % [facility] Comment:Results of BANDS ousmane led to ILENE on 08/24/22at 1115 by MARLON. Lymphocytes Percent Manual 7(L) 20 - 40 % [facility] Monocytes Percent Manual 6 2 - 11 % [facility] NEUTROPHILS ABSOLUTE MANUAL 8.2 2.0 - 8.3 X10*3/uL [facility] LYMPHOCYTES ABSOLUTE MANUAL 0.7(L) 1.2 - 4.9 X10*3/uL [facility] MONOCYTES ABSOLUTE MANUAL 0.6 0.1 - 1.2 X10*3/uL [facility] Platelet Estimate DECREASED NORMAL [facility] Large Platelet [facility] Platelet Morphology Comment NOTED [facility] RBC Morphology NORMAL [facility] Toxic Vacuolation PRESENT [facility] Dohle Bodies PRESENT [facility] 08/24/2022 10:3 3 AM EDT 08/24/2022 10:38 AM EDT [facility] External Provider LAB BLO OD ORDERABLES Final Result Performing Organization Address [facility] de Phone Number [facility] [address] [place] [phone] * HIGH SENSITIVITY TROPONIN I (05/15/2022 12:01 PM EST) Pathologist [facility] TROPONIN I HIGH SENSITIVITY 3.5 <3.5 - 35.0 ng/L [facility] Comment:The Sebastian high sens itivity Troponin-I results should beused in conjunction with other diagnostic information suchas ECG, clinical observations and information, and patientsymptoms to aid in the diagnosis of [place]. 05/15/2022 12:0 1 PM EST 05/15/2022 12:04 PM EST [facility] External Provider LAB BLO OD ORDERABLES Final Result Performing Organization Address [facility] de Phone Number [facility] [address] [place] [phone] * COVID-19 ID NOW (SEBASTIAN) (05/15/2022 12:01 PM EST) Pathologist [facility] IDNOW SERIAL# [id number] [facility] COVID-19 TEST Negative Negative [facility] COVID-19 NOTE See Note [facility] Comment: Results are for the identification of SARS-CoV2 RNA. TheSARS-CoV2 RNA is generally detectable in respiratory samplesduring the acute phase of infection. Positive results areindicative of the presence of SARS-CoV-2 RNA; clinicalcorrelation with patient history and other diagnosticinformation is necessary to determine patient infectionstatus. Positive results do not rule out bacterial infectionor co- infection with other viruses.Testing facilities within the [facility] and [facility] centerrit[facility] are required to report all positive results [...] use by authorized laboratories.Testing performed on the LRN ID NOW utilizing NAAT. 05/15/2022 12:0 1 PM EST 05/15/2022 12:04 PM EST [facility] Exter nal Provider LAB MOLECULAR DIAGNOSTICS ORDERABLES Final Result Performing Organization Address [facility]/ZIP Co de Phone Number [facility] [address] [place] [phone] * Magnesium (05/15/2022 12:01 PM EST) Pathologist [facility] Magnesium 2.0 1.6 - 2.6 mg/dL [facility] 05/15/2022 12:0 1 PM EST 05/15/2022 12:04 PM EST [facility] External Provider LAB BLO OD ORDERABLES Final Result Performing Organization Address [facility] Co de Phone Number [facility] [address] [place] [phone] * (ABNORMAL) Basic Metabolic Panel (05/15/2022 12:01 PM EST) Sodium 143 135 - 145 mmol/L [facility] Potassium 4.5 3.3 - 5.1 mmol/L [facility] Chloride 103 96 - 108 mmol/L [facility] Carbon Dioxide 27 22 - 29 mmol/L [facility] Anion Gap 18 12 - 20 [facility] Urea Nitrogen (BUN) 14 9 - 16 mg/dL [facility] Creatinine, Serum 0.90 0.5 - 1.4 mg/dL [facility] Creatinine Clr Calc Pharmacy 104.5 [facility] Comment:eGFR (calculated fro m the MDRD study equation) and eCrCl(calculated from the Cockcroft-Gault equation) are based ondifferent parameters and may not yield comparable results.If eCrCl result is absurd, please check patient'sheight/weight. Estimated Glomerular Filt Rate >60 [facility] Comment:NOTE: For -Am erican individuals, multiply the result by 1.210.Chronic Kidney Disease: Estimated GFR < 60 mL/min/1.42o6Yoafll Kidney Disease: Estimated GFR < 15 mL/min/1.73m2 Glucose 183(H) 60 - 115 mg/dL [facility] Calcium 9.8 8.4 - 10.2 mg/dL [facility] 05/15/2022 12:0 1 PM EST 05/15/2022 12:04 PM EST [facility] External Provider LAB BLO OD ORDERABLES Final Result [facility] [address] [place] [phone] * (ABNORMAL) Hepatic Function Panel (05/15/2022 12:01 PM EST) Bilirubin, Total 0.5 0.0 - 1.0 mg/dL [facility] Bilirubin, Direct <0.2 0.0 - 0.5 mg/dL [facility] Aspartate Amino Transferase 50(H) 5 - 37 U/L [facility] Alanine Aminotransferase 59(H) 0 - 40 U/L [facility] Total Protein 6.9 6.5 - 8.0 g/dL [facility] Albumin Level 4.4 3.5 - 5.0 g/dL [facility] Alkaline Phosphatase 109 39 - 117 U/L [facility] 05/15/2022 12:0 1 PM EST 05/15/2022 12:04 PM EST [facility] External Provider LAB BLO OD ORDERABLES Final Result [facility] [address] [place], [place] [phone] * (ABNORMAL) CBC auto differential (05/15/2022 12:01 PM EST) White Blood Count 8.0 4.8 - 10.8 X10*3/uL [facility] Red Blood Count 5.59 4.60 - 5.80 X10*6/uL [facility] Hemoglobin 16.2 14.0 - 18.0 g/dl [facility] Hematocrit 48.8 42.0 - 52.0 % [facility] Mean Corpuscular Volume 87.3 80.0 - 98.0 fL [facility] Mean Corpuscular Hemoglobin 29.0 27.0 - 33.0 pg [facility] Mean Corpuscular HGB Conc 33.2 31.0 - 36.0 g/dl [facility] Red Cell Distribution Width 13.0 11.0 - 16.0 % [facility] Platelet Count 202 160 - 400 X10*3/uL [facility] Mean Platelet Volume 11.1 9.4 - 12.4 fL [facility] Neutrophils Percent Auto 68.0 45 - 73 % [facility] Imm Gran Pct Auto 0.6(H) 0.0 - 0.4 % [facility] Lymphocytes Percent Auto 23.6 20 - 40 % [facility] Monocytes Percent Auto 6.5 2 - 11 % [facility] Eosinophils Percent Auto 1.0 0 - 4 % [facility] Basophils Percent Auto 0.3 0 - 2 % [facility] NRBC Pct Auto 0.0 0.0 - 0.2 /100WBC [facility] Neutrophils Absolute Auto 5.4 2.0 - 8.3 x10*3/uL [facility] Imm Gran Abs Auto 0.05(H) 0.00 - 0.03 X10*3/uL [facility] Lymphocytes Absolute Auto 1.9 1.2 - 4.9 X10*3/uL [facility] Monocytes Absolute Auto 0.5 0.1 - 1.2 X10*3/uL [facility] Eosinophils Absolute Auto 0.1 0.0 - 0.4 X10*3/uL [facility] Basophils Absolute Auto 0.0 0.0 - 0.2 X10*3/uL [facility] NRBC Abs Auto 0.000 0.0 - 0.012 X10*3/uL [facility] 05/15/2022 12:0 1 PM EST 05/15/2022 12:04 PM EST us [facility] External Provider LAB BLO OD ORDERABLES Final Result Performing Organization Address City/State/[facility] Co de Phone Number [facility] [address] [place] [address] [phone] documented in this encounter Visit Diagnoses Not on filedocumented in this encounter Care Teams Pharmaceutical Sales Relationship Specialty Start Date End Date Celia Torres MD [address] [place] [phone] PCP - General Family Medicine 03/10/12 02/02/25 Kenyatta Cruz MD [address] [place] [phone] PCP - General Family Medicine 02/03/25 Danielle Kaufman OD [address] [place] [address] Optometry 09/03/18 Larissa Trujillo DDS [address] [place] [address] Resident Dental Surgery Center Administrator 05/23/13 Obdulia Restrepo [address] [place] [address] Dr [address] [place] [address] Preschool Assistant Teacher 05/27/23 Dustin Falcon MD [address] [place] [address] [address] [place] [address] Orthopaedic Surgery 04/08/23 Belinda Sears MD [address] [facility] [address] [place] [address] Referring Physician Family Medicine 07/23/23 Dipak Urban MD [address] [place] [address] Surgeon General Surgery 04/17/23 Hiren Radford MD [address] [place] [address] Research Manufacturing Operator Cardiology 09/03/18 Serjio Christianson MD [address] [place] [address] Vascular 01/26/24 documented as of this encounter
--- OUTSIDE RECORDS SUMMARY | 2025-03-11 08:11 | XMS_ITS | Clinical Summary ---
Author Organization [facility] Address [address] [place] [address] Care Team Providers Care Retail Service Lead Merchandiser Name Role Phone Ramon West MD Unavailable [phone] Ramon West MD Primary Care Provider Allergies [...] this topic Medical Devices Implanted Type Area Contact Center Assistant Device Identifier Shelf Expiration Date Model / Serial / Lot [id number] Graft Cv Glwv 10mm 30cm Abd Thrx Hydrolyzable Geltn Poly Wvn - [id number] Implanted:Qty: 1 on 08/26/2022 by Ramon West MD at [facility] Graft N/A: Aorta [employer] [id number] 05/07/2025 [id number] / [id number] / [id number] Graft Vasc Glwv Vascutek 16mm 30cm Thor Abdominal Twl Wvn - [id number] Implanted:Qty: 1 on 08/27/2022 by Ramon West MD at [facility] Graft N/A: Aorta [employer] 10/05/2023 [id number] / [id number] / [id number] Patch Vasc [id number] Xenosure Bvn Pericard Sterl Disp - [id number] Implanted:Qty: 1 on 08/26/2022 by Ramon West MD at [facility] Tissue N/A: Aorta [employer] [id number] 03/04/2028 [id number] / [id number] / [id number] Description:Patch type, size , and expiration date [...] 9.0(H) <5.7 % 08/25/2022 3:47 AM EDT [facility] Comment: A1c% Interpretation 5.7 - 6.0 Increase risk of diabetes 6.1 - 6.4 Higher risk of diabetes > or = 6.5 Consistent with diabetes Diabetes Care, 33(Supp 1):S1-S61, 2010 Estimated Average Glucose 212 mg/dL 08/25/2022 3:47 AM EDT [facility] Blood specimen / Unknown 08/24/2022 11:29 PM EDT 08/24/2022 11:39 PM EDT us Ritesh Edwards MD LAB BLOOD ORDERABLES Final Result [facility] See Below [address] [address] from Last 3 Months or Most Recently Relevant to Health Maintenance Insurance [facility] MEDICARE PART A & B MEDICARE PART A & B [facility] Advance Directives Documents on File Type Date Recorded Patient Director [employer] Expl anation Advance Directive-Scan 10/07/2022 labs Advance [...] Child, Parent, Adult Sibling, Grandparent) Care Teams Retail Service Lead Merchandiser Relationship Specialty Start Date End Date Ramon West MD [address] [address] PCP - General Surgery, Cardiac 10/09/22 Ramon West MD [address] [address] Surgery, Cardiac 08/26/22 Hiren Radford [address] [place] [address] Irrigation Engineer Cardiovascular Disease 10/02/22 [facility] [address] [place] [address] Primary Care Provider General Medicine 10/02/22
[2025-03-11 08:33] LABS: Estimated Glomerular Filt Rate > 60
[2025-03-11] MEDS: iohexoL 350 MG/ML 100 ML INFUS..BTL 65 ML IV (09:26)
== END 2025-03-11 08:01 | disposition home or self-care (01) ==
LOC: HO.CT 08:00
PROVIDERS: PCP Student in an Organized Health Care Education/Training Program; Visit Provider Nurse Practitioner Family
DX: Z01.812 Encounter for preprocedural laboratory examination (principal); A49.01 Methicillin susceptible Staphylococcus aureus infection, unspecified site; R05.3 Chronic cough; Z90.2 Acquired absence of lung [part of]
CPT/HCPCS: 36415; 71260; 82565; Q9967

== ENCOUNTER → 2025-03-11 08:02 | Outpatient (BNV) | payer MEDICARE, MEDICAID, SELFPAY | PROVIDERS: PCP Student in an Organized Health Care Education/Training Program; Visit Provider Radiology Diagnostic Radiology | DX: A49.01 Methicillin susceptible Staphylococcus aureus infection, unspecified site (principal) | CPT/HCPCS: 71260 ==

== ENCOUNTER 2025-03-14 13:41 | Outpatient (AMB) | payer MEDICARE, MEDICAID, SELFPAY ==
--- NOTE | 2025-03-14 13:47 | MHC.OFFVIS ---
Vital Signs 03/14/25 13:51 Height 5 ft 6 in Weight 220 lb BMI 35.5 Intake Visit Reasons: OV- discuss CTR Intake Note: David is a 59 year old right hand dominant man who presents today for Follow Up of his Right Carpal Tunnel Syndrome. At his last visit symptoms were daily, constant, worse at night. Patient reports symptoms remain about the same. He would like to discuss Right Carpal Tunnel Release today. Hx of Type 2 DM, last A1C done 01/29/25 - 8.0% EMG/NCS done on 12/08/2024 IMPRESSION: 1. This is an abnormal study. 2. There is electrodiagnostic evidence for right mild median neuropathy at the wrist, consistent with carpal tunnel syndrome. 3. There is no electrodiagnostic evidence for ulnar neuropathy, brachial plexopathy, or cervical radiculopathy. 4. There is no electrodiagnostic evidence for median neuropathy on the left. Allergies cinnamon Allergy (Severe, Verified 03/14/25 13:50) Swelling Penicillins Allergy (Mild, Verified 03/14/25 13:50) RASH lisinopril Adverse Reaction (Intermediate, Verified 03/14/25 13:50) Cough cockaroach Allergy (Uncoded 03/14/25 13:50) Unknown HPI HPI OV- discuss CTR: Details: David is a 59 year old right hand dominant man who presents today for Follow Up of his Right Carpal Tunnel Syndrome. At his last visit symptoms were daily, constant, worse at night. Patient reports symptoms remain about the same. He would like to discuss Right Carpal Tunnel Release today. Hx of Type 2 DM, last A1C done 01/29/25 - 8.0% EMG/NCS done on 12/08/2024 IMPRESSION: 1. This is an abnormal study. 2. There is electrodiagnostic evidence for right mild median neuropathy at the wrist, consistent with carpal tunnel syndrome. 3. There is no electrodiagnostic evidence for ulnar neuropathy, brachial plexopathy, or cervical radiculopathy. 4. There is no electrodiagnostic evidence for median neuropathy on the left. [facility] Medical History Family history of anesthesia complication Arthritis Vertigo MSSA (methicillin susceptible Staphylococcus aureus) infection Sludge in gallbladder Diabetes HTN (hypertension) Coarctation of aorta Asthma Surgical History History of uvulopalatopharyngoplasty Hx of tonsillectomy Hx of heart surgery Hx of heart surgery Hx of circumcision S/P lobectomy of lung Status post aortic coarctation stent placement Social History Are you a primary healthcare interpreter to a significant other at home: No Do you presently have visiting nurse or other home services: No Alcohol intake: current Alcohol intake frequency: former alcohol drinker Patient Tobacco Use Status: Former Tobacco user Tobacco use type: Cigarette Cigarette Packs Per Day: 0.5 Years Smoked: 5 Substance Use Type: Marijuana Current occupational status: disabled Current occupation: right hand dominant Review of Systems Const All systems reviewed & are unremarkable except as noted in HPI and below Physical Exam Vital Signs: BMI result Body Mass Index 35.5 Extrem Other: Neuro: Diminished sensation of the tips of all digits of the median nerve distribution of bilateral hands in the office today No thenar or intrinsic wasting. Good APB muscle firing and good finger cross. Vascular: Capillary refill brisk. ROM: Patient can make a fist and extend all their digits. Skin: No lacerations or abrasions noted. General: No ecchymosis. No erythema or evidence of infection. Assessment & Plan Assessment & Plan (1) Bilateral carpal tunnel syndrome: Code(s): G56.03 - Carpal tunnel syndrome, bilateral upper limbs Category: Medical Plan 1. Right carpal tunnel syndrome Symptoms intermittent, daily, worse at night I educated the patient about the condition. I discussed both operative and nonoperative treatment options. The patient would like to proceed with surgery. The risks and benefits of operative treatment were discussed with the patient and the patient wishes to proceed with surgery. These risks include, but are not limited to, risk of damage to blood vessels, nerves, tendons, infection, recurrence, incomplete relief of preoperative symptoms, persistent pain, possible need for further surgery, and the risks associated with regional blocks and/or anesthesia. Plan is to take the patient to the operating room at some point in the next few weeks for the following procedures: 1. Right carpal tunnel release under local All of the preoperative paperwork including the consent was discussed today. All of the patient's questions were answered in the clinic today. The patient understands that they will be in contact with our surgical aides teacher to discuss scheduling their procedure. Patient reports diabetes, last A1c 8.0 Denies blood thinners, asthma, heart issues, lung issues, kidney issues, or current smoking. Coding Level of Care Code Est Pt Level 4 (77668) Diagnoses Bilateral carpal tunnel syndrome G56.03
[2025-03-14 13:51] VITALS: BMI 35.5
--- OUTSIDE RECORDS SUMMARY | 2025-03-14 22:29 | XMS_ITS | Encounter Summary ---
Author Organization [employer] Address [address] [place] [address] 7[address] [place] [address] Care Team Providers Care Edger Machine Operator Name Role Phone Celia Torres MD Primary Care Provider [phone] Danielle Kaufman OD Unavailable [phone] Larissa Trujillo DDS Unavailable Unavailabl e Obdulia Restrepo Unavailable [phone] Dustin Falcon MD Unavailable Belinda Sears MD Unavailable [phone] Dipak Urban MD Unavailable [phone] Hiren Radford MD Unavailable [phone] Kenyatta Cruz MD Primary Care Provider [phone] Reason for Visit * Reason Onset Date Comments Med Refill 11/11/2022 Encounter Details Date Type Department Care Team (Late st Contact Info) Description 11/11/2022 Telephone [facility] [address] [place], [place] [id number] Celia Torres MD [address] [place] [address] Med Refill Social History Tobacco Use Types [...] (Ultram) 50 MG tablet Please sent to [id number] - [place] ID - [id number] [facility] documented in this encounter Plan of Treatment Not on file documented as of this encounter Visit Diagnoses Not on filedocumented in this encounter Additional Health Concerns Assessment Noted Time PHQ-9 Depression Total Score: 1 07/10/19 23 10:12 AM EDT documented as of this encounter Care Teams Edger Machine Operator Relationship Specialty Start Date End Date Celia Torres MD [address] [place] [address] PCP - General Family Medicine 03/10/12 02/02/25 Kenyatta Cruz MD [address] [place] [address] PCP - General Family Medicine 02/03/25 Danielle Kaufman OD [address] [place] [address] Optometry 09/03/18 Larissa Trujillo DDS [address] [place] [address] Resident Dental Stave Cutter 05/23/13 Obdulia Restrepo [address] [place] [address] [place] [address] Laborer Powerhouse 05/27/23 Dustin Falcon MD [address] [place] [address] Dr [address] [place] [address] Orthopaedic Surgery 04/08/23 Belinda Sears MD 575 [facility] [address] [place] [address] Referring Physician Family Medicine 07/23/23 Dipak Urban MD [address] 3rd [place] [address] Surgeon General Surgery 04/17/23 Hiren Radford MD [address] [place] [address] Greenhouse Manager Cardiology 09/03/18 Serjio Christianson MD [address] [place] [address] Vascular 01/26/24 documented as of this encounter
--- OUTSIDE RECORDS SUMMARY | 2025-03-14 22:29 | XMS_ITS | Encounter Summary ---
Author Organization [facility] Address [address] [place] [address] Care Team Providers Care Website Programmer Name Role Phone Ramon West MD Unavailable [phone] Ramon West MD Primary Care Provider Encounter Details Date Type Department Care Team (Late st Contact Info) Description 11/11/2018 Scanned Document [facility] 3 ICU [address] [place] [address] Provider, Generic Social History Tobacco [...] documented as of this encounter Care Teams Website Programmer Relationship Specialty Start Date End Date Ramon West MD [address] [address] PCP - General Surgery, Cardiac 10/09/22 Ramon West MD [address] [address] Surgery, Cardiac 08/26/22 Hiren Radford [address] [place] [address] Seamstress Fitter Cardiovascular Disease 10/02/22 [facility] [address] [place] [address] Primary Care Provider General Medicine 10/02/22 documented as of this encounter
--- OUTSIDE RECORDS SUMMARY | 2025-03-14 22:29 | XMS_ITS | Encounter Summary ---
Author Organization [employer] [facility] Address [address] [place] [address] 7[address] [place] [address] Care Team Providers Care Manager Commercial Real Estate Name Role Phone Celia Torres MD Primary Care Provider [phone] Danielle Kaufman OD Unavailable [phone] Larissa Trujillo DDS Unavailable Unavailabl e Obdulia Restrepo Unavailable [phone] Dustin Falcon MD Unavailable Belinda Sears MD Unavailable [phone] Dipak Urban MD Unavailable [phone] Hiren Radford MD Unavailable [phone] Kenyatta Cruz MD Primary Care Provider [phone] Encounter Details Date Type Department Care Team (Latest Contact Info) Description 10/24/2020 Abstract [facility] CONVERSIONS Dental, Provider, DDS Social History Tobacco [...] on filedocumented in this encounter Care Teams Manager Commercial Real Estate Relationship Specialty Start Date End Date Celia Torres MD [address] [place] [id number] PCP - General Family Medicine 03/10/12 02/02/25 Kenyatta Cruz MD [address] [place] [address] PCP - General Family Medicine 02/03/25 Danielle Kaufman OD [address] [place] [address] Optometry 09/03/18 Larissa Trujillo DDS [address] [place] [address] Resident Dental Carton Waxing Machine Operator 05/23/13 Obdulia Restrepo [address] [place] [address] [address] [place] [address] Wedding Planner 05/27/23 Dustin Falcon MD [address] [place] [address] Dr [address] [place] [address] Orthopaedic Surgery 04/08/23 Belinda Sears MD 575 [facility] 404 [place] [address] Referring Physician Family Medicine 07/23/23 Dipak Urban MD [address] [place] [address] Drive 3rd [place] [address] Surgeon General Surgery 04/17/23 Hiren Radford MD [address] [place] [address] Silicator Cardiology 09/03/18 Serjio Christianson MD [address] [place] [address] Vascular 01/26/24 documented as of this encounter
--- OUTSIDE RECORDS SUMMARY | 2025-03-14 22:29 | XMS_ITS | Encounter Summary ---
Author Organization [email or web address] Address [address] [facility] 7t [place] [address] Care Team Providers Care Printing Supervisor Name Role Phone Celia Torres MD Primary Care Provider [phone] Danielle Kaufman OD Unavailable [phone] Larissa Trujillo DDS Unavailable Unavailabl e Obdulia Restrepo Unavailable [phone] Dustin Falcon MD Unavailable Belinda Sears MD Unavailable [phone] Dipak Urban MD Unavailable [phone] Hiren Radford MD Unavailable [phone] Kenyatta Cruz MD Primary Care Provider [phone] Encounter Details Date Type Department Care Team (Late st Contact Info) Description 10/14/2022 Orders Only [facility] MEDICINE [address] [place], [place] [phone] Shalonda Srinivasan, PharmD [address] [place], [place] [id number] Social History Tobacco Use Types Packs/Day Years [...] documented as of this encounter Care Teams Printing Supervisor Relationship Specialty Start Date End Date Celia Torres MD [address] [place] [address] PCP - General Family Medicine 03/10/12 02/02/25 Kenyatta Cruz MD [address] [place] [address] PCP - General Family Medicine 02/03/25 Danielle Kaufman OD [address] [place] [address] Optometry 09/03/18 Larissa Trujillo DDS [address] [place] [address] Resident Dental Skill Labor 05/23/13 Obdulia Restrepo [address] [place] [address] Dr [address] [place] [address] Media Center Director School 05/27/23 Dustin Falcon MD [address] [place] [address] Dr [address] [place] [address] Orthopaedic Surgery 04/08/23 Belinda Sears MD [address] [place] [address] [address] [place] [address] Referring Physician Family Medicine 07/23/23 Dipak Urban MD [address] [place] [address] Drive 3rd [place] [address] Surgeon General Surgery 04/17/23 Hiren Radford MD [address] [place] [address] Stage Setting Painter Apprentice Cardiology 09/03/18 Serjio Christianson MD [address] [place] [address] Vascular 01/26/24 documented as of this encounter
--- OUTSIDE RECORDS SUMMARY | 2025-03-14 22:29 | XMS_ITS | Encounter Summary ---
Author Organization [employer] Address [address] [place] [address] 7[address] [place] [address] Care Team Providers Care Quality Assurance Analyst Name Role Phone Celia Torres MD Primary Care Provider [phone] Danielle Kaufman OD Unavailable [phone] Larissa Trujillo DDS Unavailable Unavailabl e Obdulia Restrepo Unavailable [phone] Dustin Falcon MD Unavailable Belinda Sears MD Unavailable [phone] Dipak Urban MD Unavailable [phone] Hiren Radford MD Unavailable [phone] Kenyatta Cruz MD Primary Care Provider [phone] Encounter Details Date Type Department Care Team (Late st Contact Info) Description 04/18/2022 Orders Only [facility] [address], [place] [id number] Sherice Lozano LPN Social History Tobacco Use [...] EDT) Ova and Parasite Trichrome SEE NOTE [facility] Comment: OVA AND PARASITES, CONC AND PERM SMEAR Micro Number: [id number] Test Status: Final Specimen Source: Stool Specimen [...] infection. For additional information, please refer to https://education.OleOle/faq/VWY098 (This link is being provided for informational/ educational purposes only.)THIS TEST WAS PERFORMED AT:[employer] [address] [id number] JUDSON,MD 08/24/2022 7:59 PM EDT 08/24/2022 8:24 PM EDT us [facility] Exter nal Provider LAB MICROBIOLOGY - GENERAL ORDERABLES Final Result [facility] [address] [place] [phone] * Acid-Fast Smear (08/24/2022 6:10 PM EDT) 08/24/2022 6:10 PM EDT 08/24/2022 6:24 PM EDT Comment:Sputum Narrative [facility] - 10/23/2022 2:15 PM EDT Acid-Fast Smear Acid-Fast Smear Acid-Fast Smear No acid-fast bacilli seen. Testing performed at: [address] [address] Acid-Fast Culture null Acid-Fast Culture null Acid-Fast Culture null Acid-Fast Culture null Acid-Fast Culture null Specimen Source: Sputum [facility] Exter nal Provider LAB MICROBIOLOGY - GENERAL ORDERABLES Final Result Performing Organization Address City/[facility]/ZIP Co de Phone Number [facility] [address] [place] [phone] * Type and screen (08/24/2022 4:17 PM EDT) Blood Type OP [facility] Antibody Screen NEGATIVE [facility] 08/24/2022 4:17 PM EDT 08/24/2022 4:27 PM EDT [facility] External Provider LAB BLO OD BANK TEST ORDERABLES Final Result Performing Organization Address [facility] Co de Phone Number [facility] [address] [place] [phone] * (ABNORMAL) Prothrombin Time-INR (08/24/2022 4:17 PM EDT) Prothrombin Time 15.0(H) 10.0 - 13.1 SEC [facility] INTERNATIONAL NORM RATIO 1.3(H) 0.9 - 1.1 [facility] Comment:INTERNATIONAL NORMAL IZED RATIO (INR) [...] 4:17 PM EDT 08/24/2022 4:25 PM EDT [facility] External Provider LAB BLO OD ORDERABLES Final Result Performing Organization Address [facility]/ZIP Co de Phone Number [facility] [address] [place] [address] [phone] * Gram stain (08/24/2022 2:43 PM EDT) 08/24/2022 2:43 PM EDT 08/24/2022 2:45 PM EDT Comment:Sputum Narrative [facility] - 08/27/2022 9:28 AM EDT [...] Staph Aureus: Vancomycin 1(S) Specimen Source: Sputum [facility] Exter nal Provider LAB MICROBIOLOGY - GENERAL ORDERABLES Final Result Performing Organization Address [facility]/ZIP Co de Phone Number [facility] [address] [place] [address] [phone] * Gastrointestinal panel (08/24/2022 12:11 PM EDT) Campylobacter Not Detected Not Detect. [facility] Plesiomonas shigelloides Not Detected Not Detect. [facility] Salmonella Not Detected Not Detect. [facility] Vibrio Not Detected Not Detect. [facility] Vibrio cholerae Not Detected Not Detect. [facility] YERSINIA ENTEROCOLITICA Not Detected Not Detect. [facility] Enteroaggregative E. coli (EAEC) Not Detected Not Detect. [facility] Enteropathogenic E. coli (EPEC) Not Detected Not Detect. [facility] Enterotoxigenic E. coli (ETEC) lt/st Not Detected Not Detect. [facility] Shiga-like toxin-producing E. coli (STEC) stx1/stx2 Not Detected Not Detect. [facility] E coli O157 Not applicable Not Detect. [facility] Comment:E. coli containing t he O157 antigen are a subset ofShiga-like toxin- producing E. coli (STEC). Shigella/Enteroinvasive E. coli (EIEC) Not Detected Not Detect. [facility] Cryptosporidium Not Detected Not Detect. [facility] Cyclospora cayetanensis Not Detected Not Detect. [facility] Entamoeba histolytica Not Detected Not Detect. [facility] Giardia lamblia Not Detected Not Detect. [facility] Adenovirus F 40/41 Not Detected Not Detect. [facility] Astrovirus Not Detected Not Detect. [facility] Norovirus GI/GII Not Detected Not Detect. [facility] Rotavirus A Not Detected Not Detect. [facility] Sapovirus Not Detected Not Detect. [facility] Comment: All results must be [...] assay is performed by Multiplexed PCR, utilizing [email or web address] Film Array. 08/24/2022 12:1 1 PM EDT 08/24/2022 12:15 PM EDT [facility] Exter nal Provider LAB MICROBIOLOGY - GENERAL ORDERABLES Final Result Performing Organization Address [facility] Co de Phone Number [facility] [address] [place] [phone] * CDiff Gene PCR (08/24/2022 12:11 PM EDT) CDiff Gene PCR NEGATIVE Negative [facility] Comment:If C. difficile stro ngly suspected despite one negativetest, a second test may be sent vs. empiric treatment forC. difficile infection. 08/24/2022 12:1 1 PM EDT 08/24/2022 12:15 PM EDT [facility] Exter nal Provider LAB BODY FLUIDS AND STOOLS ORDERABLES Final Result Performing Organization Address [facility] Co de Phone Number [facility] [address] [place] [phone] * Blood Culture (Second) (08/24/2022 11:14 AM EDT) 08/24/2022 11:1 4 AM EDT 08/24/2022 11:20 AM EDT Comment:Blood Narrative [facility] - 08/26/2022 8:15 AM EDT [...] Culture (Second) Gram stain reviewed by a Business Development Coordinator Staphylococcus aureus [facility] ORG #1: Susceptibility testing of same organism(s) from [facility] similar site will not be repeated within 4 days. Results of Blood Culture gram stain called to and read back by EMILEE at 2113 on 08/24/22 by RADHA. Specimen Source: Blood us [facility] Exter nal Provider LAB MICROBIOLOGY - GENERAL ORDERABLES Final Result Performing Organization Address City/State/[facility] Co de Phone Number [facility] [address] [place] [phone] * Blood Culture (First) (08/24/2022 11:13 AM EDT) 08/24/2022 11:1 3 AM EDT 08/24/2022 11:17 AM EDT Comment:Blood Narrative [facility] - 08/26/2022 8:14 AM EDT [...] Culture (First) Gram stain reviewed by a Business Development Coordinator Staphylococcus aureus Results of Blood Culture gram stain called to and read back by EMILEE at 2117 on 08/24/22 by RADHA. Staphylococcus aureus: Clindamycin <=0.25(S) Staphylococcus aureus: Erythromycin <=0.25(S) Staphylococcus aureus: Levofloxacin <=0.12(S) Staphylococcus aureus: Oxacillin 0.5(S) Staphylococcus aureus: Penicillin-G >=0.5(R) Staphylococcus aureus: Tetracycline <=1(S) Staphylococcus aureus: Trimethoprim/Sulfamethoxazole <=10(S) Specimen Source: Blood [facility] Exter nal Provider LAB MICROBIOLOGY - GENERAL ORDERABLES Final Result Performing Organization Address [facility] Co de Phone Number [facility] [address] [place] [phone] * Magnesium (08/24/2022 11:13 AM EDT) Pathologist [facility] Magnesium 1.6 1.6 - 2.6 mg/dL [facility] 08/24/2022 11:1 3 AM EDT 08/24/2022 11:17 AM EDT [facility] External Provider LAB BLO OD ORDERABLES Final Result Performing Organization Address [facility] Phone Number [facility] [address] [place] [address] [phone] * Lactic Acid (08/24/2022 11:13 AM EDT) [facility] Lactic Acid 1.8 0.5 - 2.0 mmol/L [facility] 08/24/2022 11:1 3 AM EDT 08/24/2022 11:17 AM EDT [facility] External Provider LAB BLO OD ORDERABLES Final Result Performing Organization Address [facility] de Phone Number [facility] [address] [place] [address] [phone] * SARS-CoV-2 RNA, Influenza A/B, and RSV RNA, Ql NAAT (08/24/2022 10:43 AM EDT) [facility] Influenza A PCR NEGATIVE Negative [facility] Influenza B PCR NEGATIVE Negative [facility] Resp Syncy Virus RNA Qual PCR NEGATIVE Negative [facility] SARS COV2 PCR NEGATIVE Negative [facility] Comment:All test results mus t [...] use by authorized laboratories.Testing performed on the [employer] GeneXpert utilizingreal-time RT-PCR.All SARS CoV2 and positive influenza A/B results arereported to [facility]. 08/24/2022 10:4 3 AM EDT 08/24/2022 10:46 AM EDT [facility] Exter nal Provider LAB MICROBIOLOGY - GENERAL ORDERABLES Final Result Performing Organization Address [facility] Co de Phone Number [facility] [address] [place] [address] [phone] * Lipase (08/24/2022 10:33 AM EDT) Pathologist [facility] Lipase 26 8 - 78 U/L [facility] 08/24/2022 10:3 3 AM EDT 08/24/2022 10:38 AM EDT [facility] External Provider LAB BLO OD ORDERABLES Final Result Performing Organization Address [facility] de Phone Number [facility] [address] [place] [address] [phone] * (ABNORMAL) Comprehensive Metabolic Panel (08/24/2022 10:33 AM EDT) Sodium 138 135 - 145 mmol/L [facility] Potassium 3.6 3.3 - 5.1 mmol/L [facility] Chloride 104 96 - 108 mmol/L [facility] Carbon Dioxide 23 22 - 29 mmol/L [facility] Anion Gap 15 12 - 20 [facility] Urea Nitrogen (BUN) 13 9 - 16 mg/dL [facility] Creatinine, Serum 1.33 0.5 - 1.4 mg/dL [facility] Creatinine Clr Calc Pharmacy 67.2 [facility] Comment:eGFR (calculated fro m the MDRD study equation) and eCrCl(calculated from the Cockcroft-Gault equation) are based ondifferent parameters and may not yield comparable results.If eCrCl result is absurd, please check patient'sheight/weight. Estimated Glomerular Filt Rate 55 [facility] Comment:NOTE: For -Am erican individuals, multiply the result by 1.210.Chronic Kidney Disease: Estimated GFR < 60 mL/min/1.02m9Oxmfeb Kidney Disease: Estimated GFR < 15 mL/min/1.73m2 Glucose 264(H) 60 - 115 mg/dL [facility] Calcium 9.5 8.4 - 10.2 mg/dL [facility] Bilirubin, Total 0.8 0.0 - 1.0 mg/dL [facility] Aspartate Amino Transferase 32 5 - 37 U/L [facility] Alanine Aminotransferase 27 0 - 40 U/L [facility] Total Protein 6.5 6.5 - 8.0 g/dL [facility] Albumin Level 3.9 3.5 - 5.0 g/dL [facility] Alkaline Phosphatase 68 39 - 117 U/L [facility] 08/24/2022 10:3 3 AM EDT 08/24/2022 10:38 AM EDT us [facility] External Provider LAB BLO OD ORDERABLES Final Result [facility] [address] [place] [address] [phone] * (ABNORMAL) Complete Blood Count Manual Diff (08/24/2022 10:33 AM EDT) White Blood Count 9.4 4.8 - 10.8 X10*3/uL [facility] Red Blood Count 5.40 4.60 - 5.80 X10*6/uL [facility] Hemoglobin 15.7 14.0 - 18.0 g/dl [facility] Hematocrit 46.5 42.0 - 52.0 % [facility] Mean Corpuscular Volume 86.1 80.0 - 98.0 fL [facility] Mean Corpuscular Hemoglobin 29.1 27.0 - 33.0 pg [facility] Mean Corpuscular HGB Conc 33.8 31.0 - 36.0 g/dl [facility] Red Cell Distribution Width 12.7 11.0 - 16.0 % [facility] Platelet Count 130(L) 160 - 400 X10*3/uL [facility] Mean Platelet Volume 11.2 9.4 - 12.4 fL [facility] NRBC Pct Auto 0.0 0.0 - 0.2 /100WBC [facility] NRBC Abs Auto 0.000 0.0 - 0.012 X10*3/uL [facility] Neutrophils % Manual 57 45 - 73 % [facility] Band Neutrophils Percent 30(H) 3 - 5 % [facility] Comment:Results of BANDS ousmane led to ILENE on 08/24/22at 1115 by MARLON. Lymphocytes Percent Manual 7(L) 20 - 40 % [facility] Monocytes Percent Manual 6 2 - 11 % [facility] NEUTROPHILS ABSOLUTE MANUAL 8.2 2.0 - 8.3 X10*3/uL [facility] LYMPHOCYTES ABSOLUTE MANUAL 0.7(L) 1.2 - 4.9 X10*3/uL [facility] MONOCYTES ABSOLUTE MANUAL 0.6 0.1 - 1.2 X10*3/uL [facility] Platelet Estimate DECREASED NORMAL [facility] Large Platelet [facility] Platelet Morphology Comment NOTED [facility] RBC Morphology NORMAL [facility] Toxic Vacuolation PRESENT [facility] Dohle Bodies PRESENT [facility] 08/24/2022 10:3 3 AM EDT 08/24/2022 10:38 AM EDT [facility] External Provider LAB BLO OD ORDERABLES Final Result Performing Organization Address [facility] de Phone Number [facility] [address] [place] [phone] * HIGH SENSITIVITY TROPONIN I (05/15/2022 12:01 PM EST) Pathologist [facility] TROPONIN I HIGH SENSITIVITY 3.5 <3.5 - 35.0 ng/L [facility] Comment:The Sebastian high sens itivity Troponin-I results should beused in conjunction with other diagnostic information suchas ECG, clinical observations and information, and patientsymptoms to aid in the diagnosis of VT. 05/15/2022 12:0 1 PM EST 05/15/2022 12:04 PM EST [facility] External Provider LAB BLO OD ORDERABLES Final Result Performing Organization Address [facility] de Phone Number [facility] [address] [place] [address] [phone] * COVID-19 ID NOW (SEBASTIAN) (05/15/2022 12:01 PM EST) Pathologist [facility] IDNOW SERIAL# [id number] [facility] COVID-19 TEST Negative Negative [facility] COVID-19 NOTE See Note [facility] Comment: Results are for the identification of SARS-CoV2 RNA. TheSARS-CoV2 RNA is generally detectable in respiratory samplesduring the acute phase of infection. Positive results areindicative of the presence of SARS-CoV-2 RNA; clinicalcorrelation with patient history and other diagnosticinformation is necessary to determine patient infectionstatus. Positive results do not rule out bacterial infectionor co- infection with other viruses.Testing facilities within the [facility] and [facility]rit[facility] are required to report all positive results [...] use by authorized laboratories.Testing performed on the [employer] ID NOW utilizing NAAT. 05/15/2022 12:0 1 PM EST 05/15/2022 12:04 PM EST [facility] Exter nal Provider LAB MOLECULAR DIAGNOSTICS ORDERABLES Final Result Performing Organization Address [facility]/ZIP Co de Phone Number [facility] [address] [place] [address] [phone] * Magnesium (05/15/2022 12:01 PM EST) Pathologist [facility] Magnesium 2.0 1.6 - 2.6 mg/dL [facility] 05/15/2022 12:0 1 PM EST 05/15/2022 12:04 PM EST [facility] External Provider LAB BLO OD ORDERABLES Final Result Performing Organization Address [facility] Co de Phone Number [facility] [address] [place] [address] [phone] * (ABNORMAL) Basic Metabolic Panel (05/15/2022 12:01 PM EST) Sodium 143 135 - 145 mmol/L [facility] Potassium 4.5 3.3 - 5.1 mmol/L [facility] Chloride 103 96 - 108 mmol/L [facility] Carbon Dioxide 27 22 - 29 mmol/L [facility] Anion Gap 18 12 - 20 [facility] Urea Nitrogen (BUN) 14 9 - 16 mg/dL [facility] Creatinine, Serum 0.90 0.5 - 1.4 mg/dL [facility] Creatinine Clr Calc Pharmacy 104.5 [facility] Comment:eGFR (calculated fro m the MDRD study equation) and eCrCl(calculated from the Cockcroft-Gault equation) are based ondifferent parameters and may not yield comparable results.If eCrCl result is absurd, please check patient'sheight/weight. Estimated Glomerular Filt Rate >60 [facility] Comment:NOTE: For -Am erican individuals, multiply the result by 1.210.Chronic Kidney Disease: Estimated GFR < 60 mL/min/1.28g2Cxhayd Kidney Disease: Estimated GFR < 15 mL/min/1.73m2 Glucose 183(H) 60 - 115 mg/dL [facility] Calcium 9.8 8.4 - 10.2 mg/dL [facility] 05/15/2022 12:0 1 PM EST 05/15/2022 12:04 PM EST [facility] External Provider LAB BLO OD ORDERABLES Final Result [facility] [address] [place] [address] [phone] * (ABNORMAL) Hepatic Function Panel (05/15/2022 12:01 PM EST) Bilirubin, Total 0.5 0.0 - 1.0 mg/dL [facility] Bilirubin, Direct <0.2 0.0 - 0.5 mg/dL [facility] Aspartate Amino Transferase 50(H) 5 - 37 U/L [facility] Alanine Aminotransferase 59(H) 0 - 40 U/L [facility] Total Protein 6.9 6.5 - 8.0 g/dL [facility] Albumin Level 4.4 3.5 - 5.0 g/dL [facility] Alkaline Phosphatase 109 39 - 117 U/L [facility] 05/15/2022 12:0 1 PM EST 05/15/2022 12:04 PM EST [facility] External Provider LAB BLO OD ORDERABLES Final Result [facility] [address], [place] [phone] * (ABNORMAL) CBC auto differential (05/15/2022 12:01 PM EST) White Blood Count 8.0 4.8 - 10.8 X10*3/uL [facility] Red Blood Count 5.59 4.60 - 5.80 X10*6/uL [facility] Hemoglobin 16.2 14.0 - 18.0 g/dl [facility] Hematocrit 48.8 42.0 - 52.0 % [facility] Mean Corpuscular Volume 87.3 80.0 - 98.0 fL [facility] Mean Corpuscular Hemoglobin 29.0 27.0 - 33.0 pg [facility] Mean Corpuscular HGB Conc 33.2 31.0 - 36.0 g/dl [facility] Red Cell Distribution Width 13.0 11.0 - 16.0 % [facility] Platelet Count 202 160 - 400 X10*3/uL [facility] Mean Platelet Volume 11.1 9.4 - 12.4 fL [facility] Neutrophils Percent Auto 68.0 45 - 73 % [facility] Imm Gran Pct Auto 0.6(H) 0.0 - 0.4 % [facility] Lymphocytes Percent Auto 23.6 20 - 40 % [facility] Monocytes Percent Auto 6.5 2 - 11 % [facility] Eosinophils Percent Auto 1.0 0 - 4 % [facility] Basophils Percent Auto 0.3 0 - 2 % [facility] NRBC Pct Auto 0.0 0.0 - 0.2 /100WBC [facility] Neutrophils Absolute Auto 5.4 2.0 - 8.3 x10*3/uL [facility] Imm Gran Abs Auto 0.05(H) 0.00 - 0.03 X10*3/uL [facility] Lymphocytes Absolute Auto 1.9 1.2 - 4.9 X10*3/uL [facility] Monocytes Absolute Auto 0.5 0.1 - 1.2 X10*3/uL [facility] Eosinophils Absolute Auto 0.1 0.0 - 0.4 X10*3/uL [facility] Basophils Absolute Auto 0.0 0.0 - 0.2 X10*3/uL [facility] NRBC Abs Auto 0.000 0.0 - 0.012 X10*3/uL [facility] 05/15/2022 12:0 1 PM EST 05/15/2022 12:04 PM EST us [facility] External Provider LAB BLO OD ORDERABLES Final Result Performing Organization Address City/State/[facility] Co de Phone Number [facility] [address] [place] [phone] documented in this encounter Visit Diagnoses Not on filedocumented in this encounter Care Teams Quality Assurance Analyst Relationship Specialty Start Date End Date Celia Torres MD [address] [place] [address] PCP - General Family Medicine 03/10/12 02/02/25 Kenyatta Cruz MD [address] [place] [phone] PCP - General Family Medicine 02/03/25 Danielle Kaufman OD [address] [place] [address] Optometry 09/03/18 Larissa Trujillo DDS [address] [place] [address] Resident Dental Traveling Clerk 05/23/13 Obdulia Restrepo [address] [place] [address] [address] [place] [address] Certified Ophthalmic Medical Technician 05/27/23 Dustin Falcon MD [address] [place] [address] [address] [place] [address] Orthopaedic Surgery 04/08/23 Belinda Sears MD [address] [facility] [facility] [address] [place] [address] Referring Physician Family Medicine 07/23/23 Dipak Urban MD [address] 3rd [place] [address] Surgeon General Surgery 04/17/23 Hiren Radford MD [address] [place] [address] Landcare Officer Cardiology 09/03/18 Serjio Christianson MD [address] [place] [address] Vascular 01/26/24 documented as of this encounter
--- OUTSIDE RECORDS SUMMARY | 2025-03-14 22:29 | XMS_ITS | Encounter Summary ---
Author Organization [employer] Address 75 [facility] 7t [place] [address] Care Team Providers Care Administrative Nursing Supervisor Name Role Phone Celia Torres MD Primary Care Provider [phone] Danielle Kaufman OD Unavailable [phone] Larissa Trujillo DDS Unavailable Unavailabl e Obdulia Restrepo Unavailable [phone] Dustin Falcon MD Unavailable Belinda Sears MD Unavailable [phone] Dipak Urban MD Unavailable [phone] Hiren Radford MD Unavailable [phone] Kenyatta Cruz MD Primary Care Provider [phone] Reason for Visit * Reason Comments Med Refill Encounter Details Date Type Department Care Team (Late st Contact Info) Description 02/10/2023 Refill [facility] [address] [place], [place] [phone] Celia Torres MD [address] [place], [place] [phone] Chronic pain syndrome (Primary Dx) Social History [...] documented as of this encounter Care Teams Administrative Nursing Supervisor Relationship Specialty Start Date End Date Celia Torres MD [address] [place] [address] PCP - General Family Medicine 03/10/12 02/02/25 Kenyatta Cruz MD [address] [place] [address] PCP - General Family Medicine 02/03/25 Danielle Kaufman OD [address] [place] [address] Optometry 09/03/18 Larissa Trujillo DDS [address] [place] [address] Resident Dental Dental Manager 05/23/13 Obdulia Restrepo [address] [facility] [address] [place] [address] Lumber Press Operator 05/27/23 Dustin Falcon MD [address] [place] [address] [address] [place] [address] Orthopaedic Surgery 04/08/23 Belinda Sears MD 575 [facility] 404 [place] [address] Referring Physician Family Medicine 07/23/23 Dipak Urban MD [address] [place] [address] 3rd [place] [address] Surgeon General Surgery 04/17/23 Hiren Radford MD [address] [place] [address] Roll Mill Operator Cardiology 09/03/18 Serjio Christianson MD [address] [place] [address] Vascular 01/26/24 documented as of this encounter
--- OUTSIDE RECORDS SUMMARY | 2025-03-14 22:29 | XMS_ITS | Encounter Summary ---
Author Organization [employer] Address 75 [facility] 7t [place] [address] Care Team Providers Care Rate Supervisor Name Role Phone Danielle Kaufman OD Unavailable [phone] Larissa Trujillo DDS Unavailable Unavailabl e Obdulia Restrepo Unavailable [phone] Dustin Falcon MD Unavailable Belinda Sears MD Unavailable [phone] Dipak Urban MD Unavailable [phone] Hiren Radford MD Unavailable [phone] Kenyatta Cruz MD Primary Care Provider [phone] Encounter Details Date Type Department Care Team (Late st Contact Info) Description 03/11/2025 Orders Only GENERIC EXTERNAL DATA DEPARTMENT Provider, Generic External Data Social History Tobacco Use Types Packs/Day Years [...] on file documented as of this encounter Procedures Procedure Name Priority Date/Time Associated Diagnosis Comments CT CHEST W CONTRAST Routine 03/11/2025 4 :47 PM EST CREATININE, SERUM Routine 03/11/2025 8:0 8 AM EST documented in this encounter Results * CT Chest w/ Contrast (03/11/2025 4:47 PM EST) Anatomical Region Laterality Modality Body, Chest Computed Tomogra phy 03/11/2025 4:47 PM EST Narrative 03/11/2025 4:49 PM EST [address] [address] [address] Scan Report Signed Patient: David Gurrola MR#: [id number] : 1965 Acct:[id number] Age/Sex: 59 / M ADM Date: 03/11/25 Loc: HO.CT Attending Dr: Obdulia Restrepo NEON INSTALLER Ordering Physician: Obdulia Restrepo NP Date of Service: 03/11/25 Procedure(s): CT chest w IV con Accession Number(s): [id number] cc: Celia Torres MD; Obdulia Restrepo NP Report Number: [id number]: Total DLP = 334.00 mGy-cm Reason for Exam: A49.01 - Methicillin susceptible Staphylococcus aureus infection, unspec... CLINICAL HISTORY: A49.01 - Methicillin susceptible Staphylococcus aureus infection, unspec... CT Chest with IV contrast: Comparison: 02/10/2024, 07/09/2023 Findings: Heart size is enlarged, with no pericardial effusion. Aorta diameter is normal Pulmonary artery diameter is unremarkable. Lymph nodes: No adenopathy. Trachea and Esophagus: Unremarkable. Lungs: Status post left upper lobectomy, there is volume loss and shift of heart and mediastinum into the left chest. Pleura: No pleural effusion. There is left apical postoperative granulation soft tissue unchanged from previous exam. A small 11 mm nodular soft tissue pleural-based, postoperative scar, in the posterior left lung base is unchanged from previous exam likely residual scar. Skeletal: No fractures. Stable posterior left rib deformity related to prior thoracotomy. Below the diaphragm: Regional visceral organs are unremarkable. Impression: Stable partial left pneumonectomy. Lungs are otherwise clear. No consolidations. 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 This document has been electronically signed by: Parker Aguilar MD on 03/11/2025 16:47:43 Dictated By: Parker Aguilar MD Signed By: <Electronically signed by Parker Aguilar MD in OV> 03/11/25 1648 DD/ 46 TD/TT: 03/11/251646 Training And Quality Manager: Procedure Note Donotuseinterpreter, Image - 03/11/[address] [address] [address] Scan Report Signed Patient: Jesus Gurrola#: [id number] : 1965Acct:[id number] Age/Sex: 59 / MADM Date: 03/11/25 Loc: HO.CT Attending Dr: Obdulia Restrepo NP Ordering Physician: Obdulia Restrepo NP Date of Service: 03/11/25 Procedure(s): CT chest w IV con Accession Number(s): [id number] cc: Celia Torres MD; Obdulia Restrepo NEON INSTALLER Report Number: [id number]: Total DLP = 334.00 mGy-cm Reason for Exam: A49.01 - Methicillin susceptible Staphylococcus aureusinfection, unspec... CLINICAL HISTORY: A49.01 - Methicillin susceptible Staphylococcus aureusinfection, unspec... CT Chest with IV contrast: Comparison: 02/10/2024, 07/09/2023 Findings: Heart size is enlarged, with no pericardial effusion. Aorta diameter is normal Pulmonary artery diameter is unremarkable. Lymph nodes: No adenopathy. Trachea and Esophagus: Unremarkable. Lungs: Status post left upper lobectomy, there is volume loss and shift of heart and mediastinum into the left chest. Pleura: No pleural effusion. There is left apical postoperative granulation soft tissue unchanged from previous exam. A small 11 mm nodular soft tissue pleural-based, postoperative scar, in the posterior left lung base is unchanged from previous exam likely residual scar. Skeletal: No fractures. Stable posterior left rib deformity related to prior thoracotomy. Below the diaphragm: Regional visceral organs are unremarkable. Impression: Stable partial left pneumonectomy. Lungs are otherwise clear. No consolidations. 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 This document has been electronically signed by: Parker Aguilar MD on 03/11/2025 16:47:43 Dictated By: Parker Aguilar MD Signed By: <Electronically signed by Parker Aguilar MD in OV> 03/11/25 1648 DD/ TD/TT: 03/11/251646 Training And Quality Manager: us [facility] External Provider IMG CT PROCEDURES Final Result * Creatinine, Serum (03/11/2025 8:08 AM EST) Creatinine, Serum 0.80 0.5 - 1.4 mg/dL [facility] Estimated Glomerular Filt Rate >60 [facility] Comment:Chronic Kidney Disea se: Estimated GFR < 60 mL/min/1.21l4Uxrpdr Kidney Disease: Estimated GFR < 15 mL/min/1.73m2 03/11/2025 8:08 AM EST 03/11/2025 8:08 AM EST us Generic External Data Provider LAB BLOOD ORDERAB LES Final Result [facility] [address] [place] [address] [phone] documented in this encounter Visit Diagnoses Not on filedocumented in this encounter Additional Health Concerns Assessment Noted Time PHQ-9 Depression Total Score: 2 12/08/19 8:50 AM EDT documented as of this encounter Care Teams Rate Supervisor Relationship Specialty Start Date End Date Kenyatta Cruz MD [address] [place] [address] PCP - General Family Medicine 02/03/25 Danielle Kaufman OD [address] [place] [address] Optometry 09/03/18 Larissa Trujillo DDS [address] [place] [address] Resident Dental Network Strategist 05/23/13 Obdulia Restrepo [address] [place] [address] [address] [place] [address] Vascular Technologist Sonographer 05/27/23 Dustin Falcon MD [address] [place] [address] [address] [place] [address] Orthopaedic Surgery 04/08/23 Belinda Sears MD 575 [facility] 404 [place] [address] Referring Physician Family Medicine 07/23/23 Dipak Urban MD [address] [place] [address] Drive 3rd [place] [address] Surgeon General Surgery 04/17/23 Hiren Radford MD [address] [place] [address] Optical Store Manager Cardiology 09/03/18 Serjio Christianson MD [address] [place], [place] [id number] Vascular 01/26/24 documented as of this encounter
--- OUTSIDE RECORDS SUMMARY | 2025-03-14 22:29 | XMS_ITS | Clinical Summary ---
Author Organization [facility] Address [address] [place] [address] Care Team Providers Care Signal Operator Technical Name Role Phone Ramon West MD Unavailable [phone] Ramon West MD Primary Care Provider Allergies [...] this topic Medical Devices Implanted Type Area Information Coordinator Device Identifier Shelf Expiration Date Model / Serial / Lot [id number] Graft Cv Glwv 10mm 30cm Abd Thrx Hydrolyzable Geltn Poly Wvn - [id number] Implanted:Qty: 1 on 08/26/2022 by Ramon West MD at [facility] Graft N/A: Aorta [employer] [id number] 05/07/2025 [id number] / [id number] / [id number] Graft Vasc Glwv Vascutek 16mm 30cm Thor Abdominal Twl Wvn - [id number] Implanted:Qty: 1 on 08/27/2022 by Ramon West MD at [facility] Graft N/A: Aorta [employer] 10/05/2023 [id number] / [id number] / [id number] Patch Vasc [id number] Xenosure Bvn Pericard Sterl Disp - [id number] Implanted:Qty: 1 on 08/26/2022 by Ramon West MD at [facility] Tissue N/A: Aorta [employer] [id number] 03/04/2028 [id number] / [id number] / [id number] Description:Patch type, size , and expiration date [...] 9.0(H) <5.7 % 08/25/2022 3:47 AM EDT [facility] Comment: A1c% Interpretation 5.7 - 6.0 Increase risk of diabetes 6.1 - 6.4 Higher risk of diabetes > or = 6.5 Consistent with diabetes Diabetes Care, 33(Supp 1):S1-S61, 2010 Estimated Average Glucose 212 mg/dL 08/25/2022 3:47 AM EDT [facility] Blood specimen / Unknown 08/24/2022 11:29 PM EDT 08/24/2022 11:39 PM EDT us Ritesh Edwards MD LAB BLOOD ORDERABLES Final Result [facility] See Below [address] [address] from Last 3 Months or Most Recently Relevant to Health Maintenance Insurance [facility] MEDICARE PART A & B MEDICARE PART A & B [facility] Advance Directives Documents on File Type Date Recorded Patient Specialty Foods Cook Expl anation Advance Directive-Scan 10/07/2022 labs Advance [...] Child, Parent, Adult Sibling, Grandparent) Care Teams Signal Operator Technical Relationship Specialty Start Date End Date Ramon West MD [address] [address] PCP - General Surgery, Cardiac 10/09/22 Ramon West MD [address] [address] Surgery, Cardiac 08/26/22 Hiren Radford [address] [place] [address] Student Development Dean Cardiovascular Disease 10/02/22 [facility] [address] [place] [address] Primary Care Provider General Medicine 10/02/22
--- OUTSIDE RECORDS SUMMARY | 2025-03-14 22:29 | XMS_ITS | Encounter Summary ---
Author Organization [employer] Address [address] [place] [address] 7t [place] [address] Care Team Providers Care Cabin Worker Name Role Phone Celia Torres MD Primary Care Provider [phone] Danielle Kaufman OD Unavailable [phone] Larissa Trujillo DDS Unavailable Unavailabl e Obdulia Restrepo Unavailable [phone] Dustin Falcon MD Unavailable Belinda Sears MD Unavailable [phone] Dipak Urban MD Unavailable Hiren Radford MD Unavailable [phone] Kenyatta Cruz MD Primary Care Provider [phone] Reason for Visit * Reason Onset Date Comments triage 05/15/2022 Encounter Details Date Type Department Care Team (Late st Contact Info) Description 05/15/2022 Telephone [facility] [address] [place] [address] Celia Torres MD [address] [place], [place] [phone] triage Social History Tobacco Use Types Packs/Day [...] returned to patient who does not need band maker. Patient reports that he is having a [...] self and will access emergent care at [facility] now. Reviewed with pt to contact [...] on filedocumented in this encounter Care Teams Cabin Worker Relationship Specialty Start Date End Date Celia Torres MD [address] [place] [address] PCP - General Family Medicine 03/10/12 02/02/25 Kenyatta Cruz MD [address] [place] [address] PCP - General Family Medicine 02/03/25 Shae DanielleSYLVIA [address] [place] [address] Optometry 09/03/18 Larissa Trujillo DDS [address] [place] [address] Resident Dental Dehydrating Press Operator 05/23/13 Obdulia Restrepo 10 [facility] [address] [place] [address] Prosthetic Makeup Designer 05/27/23 Dustin Falcon MD [address] [place] [address] 203 [place] [address] Orthopaedic Surgery 04/08/23 Belinda Sears MD 575 [facility] 404 [place] [address] Referring Physician Family Medicine 07/23/23 Dipak Urban MD [address] [place] [address] 3rd [place] [address] Surgeon General Surgery 04/17/23 Hiren Radford MD [address] [place] [address] Leather Lacer Cardiology 09/03/18 Serjio Christianson MD [address] [place] [address] Vascular 01/26/24 documented as of this encounter
--- OUTSIDE RECORDS SUMMARY | 2025-03-14 22:29 | XMS_ITS | Encounter Summary ---
Author Organization [employer] Address [address] [place] [address] 7t [place] [address] Care Team Providers Care Acquisitions Logistics Analyst Name Role Phone Celia Torres MD Primary Care Provider [phone] Danielle Kaufman OD Unavailable [phone] Larissa Trujillo DDS Unavailable Unavailabl e Obdulia Restrepo Unavailable [phone] Dustin Falcon MD Unavailable Belinda Sears MD Unavailable [phone] Dipak Urban MD Unavailable [phone] Hiren Radford MD Unavailable [phone] Kenyatta Cruz MD Primary Care Provider [phone] Reason for Visit * Reason Comments Med Refill Encounter Details Date Type Department Care Team (Late st Contact Info) Description 11/15/2022 Refill [facility] [address] [place], [place] [phone] Celia Torres MD 505 [place] [address] S/P aortic bifurcation bypass graft Social History [...] documented as of this encounter Care Teams Acquisitions Logistics Analyst Relationship Specialty Start Date End Date Celia Torres MD 230 [place] [address] PCP - General Family Medicine 03/10/12 02/02/25 Kenyatta Cruz MD [address] [place] [address] PCP - General Family Medicine 02/03/25 Danielle Kaufman OD 230 [place] [address] Optometry 09/03/18 Larisas Trujillo DDS [address] [place] [address] Resident Dental Fiber Artist 05/23/13 Obdulia Restrepo [address] [place] [address] [address] [place] [address] Panelboard Tank Pumper 05/27/23 Dustin Falcon MD [address] [place] [address] [address] [place] [address] Orthopaedic Surgery 04/08/23 Belinda Sears MD 575 [facility] [address] [place] [address] Referring Physician Family Medicine 07/23/23 Dipak Urban MD [address] [place] [address] 3rd [place] [address] Surgeon General Surgery 04/17/23 Hiren Radford MD [address] [place] [address] Credit Card Associate Cardiology 09/03/18 Serjio Christianson MD [address] [place] [address] Vascular 01/26/24 documented as of this encounter
--- OUTSIDE RECORDS SUMMARY | 2025-03-14 22:29 | XMS_ITS | Clinical Summary ---
Author Organization [employer] Address [address] [place] [address] [address] [place] [address] Care Team Providers Care Garment Form Assembler Name Role Phone Danielle Kaufman OD Unavailable [phone] Larissa Trujillo DDS Unavailable Unavailabl e Obdulia Restrepo Unavailable [phone] Dustin Falcon MD Unavailable Belinda Sears MD Unavailable [phone] Dipak Urban MD Unavailable Hiren Radford MD Unavailable [phone] Kenyatta Cruz MD Primary Care Provider [phone] Allergies Active Allergy Reactions Criticality Noted Date [...] surgery on t he circ sys 09/16/2022 prison (current) use of aspirin 09/16/2022 prison (current) use of oral hypoglycemic chasity gs [...] Encounters Date Type Department Care Team Description 03/11/2025 Orders Only GENERIC EXTERNAL DATA DEPARTMENT Provider, Generic External Data 03/05/2025 Refill [facility] [address] [place], [place] [phone] Celia Torres MD 01/28/2025 Telephone [facility] [address] [place], [place] [phone] Celia Torres MD lab work request 01/14/2025 Refill [facility] [address] [place] [address] Lali Croft FNP Benign hypertension from Last [...] SERUM Routine 03/11/2025 8:0 8 AM EST HEMOGLOBIN A1C Routine 01/29/2025 7:29 AM EDT Type 2 diabetes mellitus without complication, without long-term current use of insulin (HCC) PROPHYLAXIS - ADULT Routine 08/09/2024 9 :00 AM EDT PERIODIC ORAL EVALUATION - ESTABLISHED PATIENT Routine 08/09/2024 9:00 AM EDT LIPID PANEL, STANDARD Routine 07/22/2024 8:06 AM EDT Type 2 diabetes mellitus without complication, without long-term current use of insulin (CMS/HCC) INTRAORAL - COMPLETE SERIES OF RADIOGRAPHIC IMAGES Routine 02/11/2024 8:00 AM EST LAB COLOGUARD COLON CANCER SCREEN Routine 02/10/2024 6:22 AM EST Encounter for screening for malignant neoplasm of colon ALBUMIN, RANDOM URINE W/CREATININE Routine 04/27/2021 9:00 AM EST from Last 3 Months or Most Recently Relevant to Health Maintenance Results * CT Chest w/ Contrast (03/11/2025 4:47 PM EST) Anatomical Region Laterality Modality Body, Chest Computed Tomogra phy 03/11/2025 4:47 PM EST Narrative 03/11/2025 4:49 PM EST [address] [address] [address] Scan Report Signed Patient: David Gurrola MR#: [id number] : 1965 Acct:[id number] Age/Sex: 59 / M ADM Date: 03/11/25 Loc: HO.CT Attending Dr: Obdulia Restrepo NP Ordering Physician: Obdulia Restrepo NP Date of Service: 03/11/25 Procedure(s): CT chest w IV con Accession Number(s): [id number] cc: Celia Torres MD; Obdulia Restrepo NP Report Number: [id number]: Total DLP = 334.00 mGy-cm Reason for [...] signed by Parker Aguilar MD in OV> 03/11/251647 DD/ 46 TD/TT: 03/11/251646 Maintenance Mechanic [employer]: Procedure Note Donotuseinterpreter, Image - 03/11/[address] [address] [address] Scan Report Signed Patient: Jesus Gurrola#: [id number] : 1965Acct:[id number] Age/Sex: 59 / MADM Date: 03/11/25 Loc: HO.CT Attending Dr: Obdulia Restrepo NP Ordering Physician: Obdulia Restrepo NP Date of Service: 03/11/25 Procedure(s): CT chest w IV con Accession Number(s): [id number] cc: Celia Torres MD; Obdulia Restrepo NP Report Number: [id number]: Total DLP = 334.00 mGy-cm Reason for [...] signed by Parker Aguilar MD in OV> 03/11/251647 DD/ 46 TD/TT: 03/11/251646 Maintenance Mechanic [employer]: [facility] External Provider IMG CT PROCEDURES Final Result * Creatinine, Serum (03/11/2025 8:08 AM EST) Creatinine, Serum 0.80 0.5 - 1.4 mg/dL [facility] Estimated Glomerular Filt Rate >60 [facility] Comment:Chronic Kidney Disea se: Estimated GFR < 60 mL/min/1.96r6Jhampw Kidney Disease: Estimated GFR < 15 mL/min/1.73m2 03/11/2025 8:08 AM EST 03/11/2025 8:08 AM EST Generic External Data Provider LAB BLOOD ORDERAB LES Final Result Performing Organization Address City/State/[facility] Co de Phone Number [facility] [address] [place] [phone] * (ABNORMAL) Hemoglobin A1c (01/29/2025 7:29 AM EDT) Hemoglobin A1c 8.0(H) <6.0 % [facility] Comment:Hemoglobin A1C Refer ence Range Adults: 4.8 - 6.0 % Non diabetic: < 6.0 % Goal: < 7.0 %Additional Action Suggested: > 8.0 %Note: Hemoglobin A1c results are invalid for patients with abnormal amounts of HbF. Blood transfusions may impact the HbA1c concentration in the patient sample. Estimated Average Glucose 183 mg/dL [facility] Comment:eAG = Estimated ave rage glucose which is %A1C expressed asaverage glucose, using the formula of the R3I-KzwolxqWziybfo Glucose study (ADAG), Diabetes Care, Vol.31,#8,2007 Blood Venous blood specimen / Unknown 01/29/2025 7:29 AM EDT 01/29/2025 7:29 AM EDT Celia Torres MD LAB BLOOD ORDERABLES Final Resul t Performing Organization Address [facility] de Phone Number [facility] [address] [place] [phone] * (ABNORMAL) Lipid Panel, Standard (07/22/2024 8:06 AM EDT) Triglycerides 52 <150 mg/dL [facility] Comment:Desirable Triglyceri de: less than 150 mg/dLBorderline High Triglyceride 150-199 mg/dLHigh Triglyceride: 200-499 mg/dLVery High Triglyceride: greater than or equal to 5OO mg/dL Cholesterol 109 <200 mg/dL [facility] Comment:Desirable Cholestero l: less than 200 mg/dLBorderline High Cholesterol: 200-239 mg/dLHigh Cholesterol: greater than 239 mg/dL LDL Cholesterol Calculated 68 <100 mg/dL [facility] Comment:Desirable LDL: less than 100 mg/dLNear Optimal/Above Optimal LDL: 110- 129 mg/dLBorderline High LDL: 130-159 mg/dLHigh LDL: 160-189 mg/dLVery High LDL: greater than or equal to 190 mg/dL HDL Cholesterol 31(L) >40 mg/dL [facility] Comment:Desirable HDL: great er than 40 mg/dL Note: This HDL assay may give artificially low results in patients with liver disease. Blood Venous blood specimen / Unknown 07/22/2024 8:06 AM EDT 07/22/2024 8:06 AM EDT Celia Torres MD LAB BLOOD ORDERABLES Final Resul t Performing Organization Address [facility]/ZIP Co de Phone Number [facility] [address] [place] [phone] * (ABNORMAL) Cologuard?? colon cancer screening (02/10/2024 6:22 AM EST) Cologuard Result Positive( A) Negative 02/17/2024 8:49 PM EST [employer] (CLIA #:[id number]) Comment: POSITIVE TEST RESULT. A positive Cologuard [...] screened with both Cologuard and colonoscopy. (Rachele Hart et al, N Engl J Med 2014;370(14):6158-9066.) Cologuard may produce a false negative or false positive result (no colorectal cancer or precancerous polyp present at colonoscopy follow up). A negative Cologuard test result does not guarantee the absence of CRC or advanced adenoma (pre-cancer). The current Cologuard screening interval is every 3 years. ([place] [employer] and U.S. Multi-Society Task Force). Cologuard performance data in a 10,000 patient pivotal study using colonoscopy as the reference method can be accessed at the following location: www.[employer]/results. Additional description of the Cologuard test process, warnings and precautions can be found at www.cologuard.com. Stool specimen (specimen) 02/10/2024 6:22 AM EST 02/11/2024 12:14 PM EST Celia Torres MD LAB MOLECULAR DIAGNOSTICS ORDERA BLES Final Result Performing Organization Address [facility] Co de Phone Number [employer] (CLIA #:[id number]) [phone] [place] [address], * (ABNORMAL) ALBUMIN, RANDOM URINE W/CREATININE (04/27/2021 9:00 AM EST) Microalbumin Urine 1.2 See Note: mg/dL [facility] Comment: Reference Range: Reference Range [...] Creatinine, Urine 29 20 - 320 mg/dL [facility] 04/27/2021 9:00 AM EST Celia Torres MD LAB URINE ORDERABLES Final Resul t Performing Organization Address [facility] Co de Phone Number [facility] [address] from Last 3 Months or Most Recently Relevant to Health Maintenance Insurance [facility] STANDARD MEDICARE DENTAL-[facility] MEDICAID STAND ADULT Care Teams Garment Form Assembler Relationship Specialty Start Date End Date Kenyatta Cruz MD [address] [place] [phone] PCP - General Family Medicine 02/03/25 Danielle Kaufman OD [address] [place] [address] Optometry 09/03/18 Larissa Trujillo DDS [address] [place] [address] Resident Dental Valve Repairer 05/23/13 Obdulia Restrepo [address] [place] [address] Dr [address] [place] [address] Blow Machine Tender Starch Spraying 05/27/23 Dustin Falcon MD [address] [place] [address] Dr [address] [place] [address] Orthopaedic Surgery 04/08/23 Belinda Sears MD [address] [facility] [address] [place] [address] Referring Physician Family Medicine 07/23/23 Dipak Urban MD [address] [place] [address] Drive 3rd [place] [address] Surgeon General Surgery 04/17/23 Hiren Radford MD [address] [place] [address] Bottling Attendant Cardiology 09/03/18 Serjio Christianson MD [address] [place] [address] Vascular 01/26/24
--- OUTSIDE RECORDS SUMMARY | 2025-03-14 22:29 | XMS_ITS | Encounter Summary ---
Author Organization [employer] Address [address] [facility] 7t [place] [address] Care Team Providers Care Cut And Print Machine Operator Name Role Phone Celia Torres MD Primary Care Provider [phone] Danielle Kaufman OD Unavailable [phone] Larissa Trujillo DDS Unavailable Unavailabl e Obdulia Restrepo Unavailable [phone] Dustin Falcon MD Unavailable Belinda Sears MD Unavailable [phone] Dipak Urban MD Unavailable [phone] Hiren Radford MD Unavailable [phone] Kenyatta Cruz MD Primary Care Provider [phone] Reason for Visit * Reason Onset Date Comments Med Refill 02/07/2023 Encounter Details Date Type Department Care Team (Late st Contact Info) Description 02/07/2023 Refill [facility] [address] [place], [place] [phone] Celia Torres MD [address] [place] [address] Social History Tobacco Use Types Packs/Day Years [...] 3:59 PM EDT TC to pt. 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 [...] documented as of this encounter Care Teams Cut And Print Machine Operator Relationship Specialty Start Date End Date Celia Torres MD [address] [place] [address] PCP - General Family Medicine 03/10/12 02/02/25 Kenyatta Cruz MD [address] [place] [address] PCP - General Family Medicine 02/03/25 Danielle Kaufman OD [address] [place] [address] Optometry 09/03/18 Larissa Trujillo DDS [address] [place] [address] Resident Dental Furnace Operator And Tender 05/23/13 Obdulia Restrepo [address] [place] [address] [address] [place] [address] Lead Systems Analyst 05/27/23 Dustin Falcon MD [address] [place] [address] [address] [place] [address] Orthopaedic Surgery 04/08/23 Belinda Sears MD [address] [facility] [address] [place] [address] Referring Physician Family Medicine 07/23/23 Dipak Urban MD [address] [place] [address] Drive 3rd [place] [address] Surgeon General Surgery 04/17/23 Hiren Radford MD [address] [place] [address] Take Out Waiter/Waitress Cardiology 09/03/18 Serjio Christianson MD [address] [place] [address] Vascular 01/26/24 documented as of this encounter
== END 2025-03-14 14:06 | disposition home or self-care (01) ==
LOC: HO.HOS 13:42
PROVIDERS: PCP Student in an Organized Health Care Education/Training Program
DX: G56.03 Carpal tunnel syndrome, bilateral upper limbs (principal)
CPT/HCPCS: 99214

== ENCOUNTER → 2025-03-14 13:41 | Outpatient (BNVA) | payer MEDICARE, MEDICAID, SELFPAY | PROVIDERS: PCP Student in an Organized Health Care Education/Training Program | DX: G56.03 Carpal tunnel syndrome, bilateral upper limbs (principal) | CPT/HCPCS: 99212 ==

== ENCOUNTER 2025-03-16 14:18 | Outpatient (REF) | payer MEDICARE, MEDICAID, SELFPAY ==
--- NOTE | ~2025-03-16 | US_ITS ---
EXAMINATION: US RETROPERITONEAL COMPLETE (RENAL) CLINICAL INFORMATION: R39.89 - SENSATION OF PRESSURE IN BLADDER AREA. COMPARISON: CT of abdomen/pelvis on May 30, 2023 TECHNIQUE: Real-time imaging of the kidneys and bladder. FINDINGS: RIGHT KIDNEY: 12.3 x 5.4 x 5.9 cm (SAG x AP x TRV). Normal in size and echogenicity. Hypertrophic column of Derrell. No shadowing stones. No hydronephrosis. LEFT KIDNEY: 12.7 x 6.3 x 2.9 cm (SAG x AP x TRV). Normal in size and echogenicity. Hypertrophic column of Derrell. No shadowing stones. No hydronephrosis. BLADDER: Well distended and appears normal. Bilateral ureteral jets are demonstrated. Prevoid bladder volume is 267 ml. Postvoid bladder volume is 16 ml. Prostate gland: Volume of 30.6 ml (mildly enlarged). US/US retroperitoneal comp IMPRESSION: Unremarkable sonographic appearance of the urinary bladder. Prevoid bladder volume of 267 ml. Postvoid bladder volume of 16 ml.. Electronically signed by: Art Nesbitt MD 03/16/2025 03:45 PM EST
--- OUTSIDE RECORDS SUMMARY | 2025-03-16 22:33 | XMS_ITS | Encounter Summary ---
Author Organization [employer] Address [address] [place] [address] 7[address] [place] [address] Care Team Providers Care Vice President Of Software Engineering Name Role Phone Celia Torres MD Primary Care Provider [phone] Danielle Kaufman OD Unavailable [phone] Larissa Trujillo DDS Unavailable Unavailabl e Obdulia Restrepo Unavailable [phone] Dustin Falcon MD Unavailable Belinda Sears MD Unavailable [phone] Dipak Urban MD Unavailable [phone] Hiren Radford MD Unavailable [phone] Kenyatta Cruz MD Primary Care Provider [phone] Encounter Details Date Type Department Care Team (Late st Contact Info) Description 04/18/2022 Orders Only [facility] [address] [place], [place] [phone] Sherice Lozano LPN Social History Tobacco Use [...] EDT) Ova and Parasite Trichrome SEE NOTE [facility] Comment: OVA AND PARASITES, CONC AND PERM SMEAR Micro Number: [id number] Test Status: Final Specimen Source: Stool Specimen [...] infection. For additional information, please refer to https://education.[employer]/faq/WPR967 (This link is being provided for informational/ educational purposes only.)THIS TEST WAS PERFORMED AT:[email or web address] [address] [id number] JUDSON,MD 08/24/2022 7:59 PM EDT 08/24/2022 8:24 PM EDT us [facility] Exter nal Provider LAB MICROBIOLOGY - GENERAL ORDERABLES Final Result [facility] [address] [place] [phone] * Acid-Fast Smear (08/24/2022 6:10 PM EDT) 08/24/2022 6:10 PM EDT 08/24/2022 6:24 PM EDT Comment:Sputum Narrative [facility] - 10/23/2022 2:15 PM EDT Acid-Fast Smear Acid-Fast Smear Acid-Fast Smear No acid-fast bacilli seen. Testing performed at: [address] [address] Acid-Fast Culture null Acid-Fast Culture null Acid-Fast Culture null Acid-Fast Culture null Acid-Fast Culture null Specimen Source: Sputum [facility] Exter nal Provider LAB MICROBIOLOGY - GENERAL ORDERABLES Final Result Performing Organization Address City/[facility]/ZIP Co de Phone Number [facility] [address] [place] [phone] * Type and screen (08/24/2022 4:17 PM EDT) Blood Type OP [facility] Antibody Screen NEGATIVE [facility] 08/24/2022 4:17 PM EDT 08/24/2022 4:27 PM EDT [facility] External Provider LAB BLO OD BANK TEST ORDERABLES Final Result Performing Organization Address [facility] Co de Phone Number [facility] [address] [place] [phone] * (ABNORMAL) Prothrombin Time-INR (08/24/2022 4:17 PM EDT) Prothrombin Time 15.0(H) 10.0 - 13.1 SEC [facility] INTERNATIONAL NORM RATIO 1.3(H) 0.9 - 1.1 [facility] Comment:INTERNATIONAL NORMAL IZED RATIO (INR) [...] 4:17 PM EDT 08/24/2022 4:25 PM EDT [facility] External Provider LAB BLO OD ORDERABLES Final Result Performing Organization Address [facility]/ZIP Co de Phone Number [facility] [address] [place] [address] [phone] * Gram stain (08/24/2022 2:43 PM EDT) 08/24/2022 2:43 PM EDT 08/24/2022 2:45 PM EDT Comment:Sputum Narrative [facility] - 08/27/2022 9:28 AM EDT [...] Staph Aureus: Vancomycin 1(S) Specimen Source: Sputum [facility] Exter nal Provider LAB MICROBIOLOGY - GENERAL ORDERABLES Final Result Performing Organization Address [facility]/ZIP Co de Phone Number [facility] [address] [place] [address] [phone] * Gastrointestinal panel (08/24/2022 12:11 PM EDT) Campylobacter Not Detected Not Detect. [facility] Plesiomonas shigelloides Not Detected Not Detect. [facility] Salmonella Not Detected Not Detect. [facility] Vibrio Not Detected Not Detect. [facility] Vibrio cholerae Not Detected Not Detect. [facility] YERSINIA ENTEROCOLITICA Not Detected Not Detect. [facility] Enteroaggregative E. coli (EAEC) Not Detected Not Detect. [facility] Enteropathogenic E. coli (EPEC) Not Detected Not Detect. [facility] Enterotoxigenic E. coli (ETEC) lt/st Not Detected Not Detect. [facility] Shiga-like toxin-producing E. coli (STEC) stx1/stx2 Not Detected Not Detect. [facility] E coli O157 Not applicable Not Detect. [facility] Comment:E. coli containing t he O157 antigen are a subset ofShiga-like toxin- producing E. coli (STEC). Shigella/Enteroinvasive E. coli (EIEC) Not Detected Not Detect. [facility] Cryptosporidium Not Detected Not Detect. [facility] Cyclospora cayetanensis Not Detected Not Detect. [facility] Entamoeba histolytica Not Detected Not Detect. [facility] Giardia lamblia Not Detected Not Detect. [facility] Adenovirus F 40/41 Not Detected Not Detect. [facility] Astrovirus Not Detected Not Detect. [facility] Norovirus GI/GII Not Detected Not Detect. [facility] Rotavirus A Not Detected Not Detect. [facility] Sapovirus Not Detected Not Detect. [facility] Comment: All results must be [...] assay is performed by Multiplexed PCR, utilizing [employer] Film Array. 08/24/2022 12:1 1 PM EDT 08/24/2022 12:15 PM EDT [facility] Exter nal Provider LAB MICROBIOLOGY - GENERAL ORDERABLES Final Result Performing Organization Address [facility] Co de Phone Number [facility] [address] [place] [phone] * CDiff Gene PCR (08/24/2022 12:11 PM EDT) CDiff Gene PCR NEGATIVE Negative [facility] Comment:If C. difficile stro ngly suspected despite one negativetest, a second test may be sent vs. empiric treatment forC. difficile infection. 08/24/2022 12:1 1 PM EDT 08/24/2022 12:15 PM EDT [facility] Exter nal Provider LAB BODY FLUIDS AND STOOLS ORDERABLES Final Result Performing Organization Address [facility] Co de Phone Number [facility] [address] [place] [phone] * Blood Culture (Second) (08/24/2022 11:14 AM EDT) 08/24/2022 11:1 4 AM EDT 08/24/2022 11:20 AM EDT Comment:Blood Narrative [facility] - 08/26/2022 8:15 AM EDT [...] Culture (Second) Gram stain reviewed by a Interior Mechanic Staphylococcus aureus Refer [facility] [place] ORG #1: Susceptibility testing of same organism(s) from Refer [facility] [place] similar site will not be repeated within 4 days. Results of Blood Culture gram stain called to and read back by EMILEE at 2113 on 08/24/22 by RADHA. Specimen Source: Blood us [facility] Exter nal Provider LAB MICROBIOLOGY - GENERAL ORDERABLES Final Result Performing Organization Address City/State/[facility] Co de Phone Number [facility] [address] [place] [phone] * Blood Culture (First) (08/24/2022 11:13 AM EDT) 08/24/2022 11:1 3 AM EDT 08/24/2022 11:17 AM EDT Comment:Blood Narrative [facility] - 08/26/2022 8:14 AM EDT [...] Culture (First) Gram stain reviewed by a Interior Mechanic Staphylococcus aureus Results of Blood Culture gram stain called to and read back by EMILEE at 2117 on 08/24/22 by RADHA. Staphylococcus aureus: Clindamycin <=0.25(S) Staphylococcus aureus: Erythromycin <=0.25(S) Staphylococcus aureus: Levofloxacin <=0.12(S) Staphylococcus aureus: Oxacillin 0.5(S) Staphylococcus aureus: Penicillin-G >=0.5(R) Staphylococcus aureus: Tetracycline <=1(S) Staphylococcus aureus: Trimethoprim/Sulfamethoxazole <=10(S) Specimen Source: Blood [facility] Exter nal Provider LAB MICROBIOLOGY - GENERAL ORDERABLES Final Result Performing Organization Address [facility] Co de Phone Number [facility] [address] [place] [phone] * Magnesium (08/24/2022 11:13 AM EDT) Pathologist [facility] Magnesium 1.6 1.6 - 2.6 mg/dL [facility] 08/24/2022 11:1 3 AM EDT 08/24/2022 11:17 AM EDT [facility] External Provider LAB BLO OD ORDERABLES Final Result Performing Organization Address [facility] Phone Number [facility] [address] [place] [phone] * Lactic Acid (08/24/2022 11:13 AM EDT) [facility] Lactic Acid 1.8 0.5 - 2.0 mmol/L [facility] 08/24/2022 11:1 3 AM EDT 08/24/2022 11:17 AM EDT [facility] External Provider LAB BLO OD ORDERABLES Final Result Performing Organization Address [facility] de Phone Number [facility] [address] [place] [phone] * SARS-CoV-2 RNA, Influenza A/B, and RSV RNA, Ql NAAT (08/24/2022 10:43 AM EDT) [facility] Influenza A PCR NEGATIVE Negative [facility] Influenza B PCR NEGATIVE Negative [facility] Resp Syncy Virus RNA Qual PCR NEGATIVE Negative [facility] SARS COV2 PCR NEGATIVE Negative [facility] Comment:All test results mus t [...] use by authorized laboratories.Testing performed on the [employer] GeneXpert utilizingreal-time RT-PCR.All SARS CoV2 and positive influenza A/B results arereported to [facility]. 08/24/2022 10:4 3 AM EDT 08/24/2022 10:46 AM EDT [facility] Exter nal Provider LAB MICROBIOLOGY - GENERAL ORDERABLES Final Result Performing Organization Address [facility] Co de Phone Number [facility] [address] [place] [address] [phone] * Lipase (08/24/2022 10:33 AM EDT) Pathologist [facility] Lipase 26 8 - 78 U/L [facility] 08/24/2022 10:3 3 AM EDT 08/24/2022 10:38 AM EDT [facility] External Provider LAB BLO OD ORDERABLES Final Result Performing Organization Address [facility] de Phone Number [facility] [address] [place] [address] [phone] * (ABNORMAL) Comprehensive Metabolic Panel (08/24/2022 10:33 AM EDT) Sodium 138 135 - 145 mmol/L [facility] Potassium 3.6 3.3 - 5.1 mmol/L [facility] Chloride 104 96 - 108 mmol/L [facility] Carbon Dioxide 23 22 - 29 mmol/L [facility] Anion Gap 15 12 - 20 [facility] Urea Nitrogen (BUN) 13 9 - 16 mg/dL [facility] Creatinine, Serum 1.33 0.5 - 1.4 mg/dL [facility] Creatinine Clr Calc Pharmacy 67.2 [facility] Comment:eGFR (calculated fro m the MDRD study equation) and eCrCl(calculated from the Cockcroft-Gault equation) are based ondifferent parameters and may not yield comparable results.If eCrCl result is absurd, please check patient'sheight/weight. Estimated Glomerular Filt Rate 55 [facility] Comment:NOTE: For -Am erican individuals, multiply the result by 1.210.Chronic Kidney Disease: Estimated GFR < 60 mL/min/1.77m7Bbjcgo Kidney Disease: Estimated GFR < 15 mL/min/1.73m2 Glucose 264(H) 60 - 115 mg/dL [facility] Calcium 9.5 8.4 - 10.2 mg/dL [facility] Bilirubin, Total 0.8 0.0 - 1.0 mg/dL [facility] Aspartate Amino Transferase 32 5 - 37 U/L [facility] Alanine Aminotransferase 27 0 - 40 U/L [facility] Total Protein 6.5 6.5 - 8.0 g/dL [facility] Albumin Level 3.9 3.5 - 5.0 g/dL [facility] Alkaline Phosphatase 68 39 - 117 U/L [facility] 08/24/2022 10:3 3 AM EDT 08/24/2022 10:38 AM EDT us [facility] External Provider LAB BLO OD ORDERABLES Final Result [facility] [address] [place] [phone] [phone] * (ABNORMAL) Complete Blood Count Manual Diff (08/24/2022 10:33 AM EDT) White Blood Count 9.4 4.8 - 10.8 X10*3/uL [facility] Red Blood Count 5.40 4.60 - 5.80 X10*6/uL [facility] Hemoglobin 15.7 14.0 - 18.0 g/dl [facility] Hematocrit 46.5 42.0 - 52.0 % [facility] Mean Corpuscular Volume 86.1 80.0 - 98.0 fL [facility] Mean Corpuscular Hemoglobin 29.1 27.0 - 33.0 pg [facility] Mean Corpuscular HGB Conc 33.8 31.0 - 36.0 g/dl [facility] Red Cell Distribution Width 12.7 11.0 - 16.0 % [facility] Platelet Count 130(L) 160 - 400 X10*3/uL [facility] Mean Platelet Volume 11.2 9.4 - 12.4 fL [facility] NRBC Pct Auto 0.0 0.0 - 0.2 /100WBC [facility] NRBC Abs Auto 0.000 0.0 - 0.012 X10*3/uL [facility] Neutrophils % Manual 57 45 - 73 % [facility] Band Neutrophils Percent 30(H) 3 - 5 % [facility] Comment:Results of BANDS ousmane led to ILENE on 08/24/22at 1115 by MARLON. Lymphocytes Percent Manual 7(L) 20 - 40 % [facility] Monocytes Percent Manual 6 2 - 11 % [facility] NEUTROPHILS ABSOLUTE MANUAL 8.2 2.0 - 8.3 X10*3/uL [facility] LYMPHOCYTES ABSOLUTE MANUAL 0.7(L) 1.2 - 4.9 X10*3/uL [facility] MONOCYTES ABSOLUTE MANUAL 0.6 0.1 - 1.2 X10*3/uL [facility] Platelet Estimate DECREASED NORMAL [facility] Large Platelet [facility] Platelet Morphology Comment NOTED [facility] RBC Morphology NORMAL [facility] Toxic Vacuolation PRESENT [facility] Dohle Bodies PRESENT [facility] 08/24/2022 10:3 3 AM EDT 08/24/2022 10:38 AM EDT [facility] External Provider LAB BLO OD ORDERABLES Final Result Performing Organization Address [facility] de Phone Number [facility] [address] [place] [address] [phone] * HIGH SENSITIVITY TROPONIN I (05/15/2022 12:01 PM EST) Pathologist [facility] TROPONIN I HIGH SENSITIVITY 3.5 <3.5 - 35.0 ng/L [facility] Comment:The Sebastian high sens itivity Troponin-I results should beused in conjunction with other diagnostic information suchas ECG, clinical observations and information, and patientsymptoms to aid in the diagnosis of ME. 05/15/2022 12:0 1 PM EST 05/15/2022 12:04 PM EST [facility] External Provider LAB BLO OD ORDERABLES Final Result Performing Organization Address [facility] de Phone Number [facility] [address] [place] [address] [phone] * COVID-19 ID NOW (SEBASTIAN) (05/15/2022 12:01 PM EST) Pathologist [facility] IDNOW SERIAL# [id number] [facility] COVID-19 TEST Negative Negative [facility] COVID-19 NOTE See Note [facility] Comment: Results are for the identification of SARS-CoV2 RNA. TheSARS-CoV2 RNA is generally detectable in respiratory samplesduring the acute phase of infection. Positive results areindicative of the presence of SARS-CoV-2 RNA; clinicalcorrelation with patient history and other diagnosticinformation is necessary to determine patient infectionstatus. Positive results do not rule out bacterial infectionor co- infection with other viruses.Testing facilities within the [facility] and [facility] are required to report all positive [...] use by authorized laboratories.Testing performed on the [facility] ID NOW utilizing NAAT. 05/15/2022 12:0 1 PM EST 05/15/2022 12:04 PM EST [facility] Exter nal Provider LAB MOLECULAR DIAGNOSTICS ORDERABLES Final Result Performing Organization Address [facility]/ZIP Co de Phone Number [facility] [address] [place] [phone] * Magnesium (05/15/2022 12:01 PM EST) Pathologist [facility] Magnesium 2.0 1.6 - 2.6 mg/dL [facility] 05/15/2022 12:0 1 PM EST 05/15/2022 12:04 PM EST [facility] External Provider LAB BLO OD ORDERABLES Final Result Performing Organization Address [facility] Co de Phone Number [facility] [address] [place] [address] [phone] * (ABNORMAL) Basic Metabolic Panel (05/15/2022 12:01 PM EST) Sodium 143 135 - 145 mmol/L [facility] Potassium 4.5 3.3 - 5.1 mmol/L [facility] Chloride 103 96 - 108 mmol/L [facility] Carbon Dioxide 27 22 - 29 mmol/L [facility] Anion Gap 18 12 - 20 [facility] Urea Nitrogen (BUN) 14 9 - 16 mg/dL [facility] Creatinine, Serum 0.90 0.5 - 1.4 mg/dL [facility] Creatinine Clr Calc Pharmacy 104.5 [facility] Comment:eGFR (calculated fro m the MDRD study equation) and eCrCl(calculated from the Cockcroft-Gault equation) are based ondifferent parameters and may not yield comparable results.If eCrCl result is absurd, please check patient'sheight/weight. Estimated Glomerular Filt Rate >60 [facility] Comment:NOTE: For -Am erican individuals, multiply the result by 1.210.Chronic Kidney Disease: Estimated GFR < 60 mL/min/1.53q2Iokxoh Kidney Disease: Estimated GFR < 15 mL/min/1.73m2 Glucose 183(H) 60 - 115 mg/dL [facility] Calcium 9.8 8.4 - 10.2 mg/dL [facility] 05/15/2022 12:0 1 PM EST 05/15/2022 12:04 PM EST [facility] External Provider LAB BLO OD ORDERABLES Final Result [facility] [address] [place] [address] [phone] * (ABNORMAL) Hepatic Function Panel (05/15/2022 12:01 PM EST) Bilirubin, Total 0.5 0.0 - 1.0 mg/dL [facility] Bilirubin, Direct <0.2 0.0 - 0.5 mg/dL [facility] Aspartate Amino Transferase 50(H) 5 - 37 U/L [facility] Alanine Aminotransferase 59(H) 0 - 40 U/L [facility] Total Protein 6.9 6.5 - 8.0 g/dL [facility] Albumin Level 4.4 3.5 - 5.0 g/dL [facility] Alkaline Phosphatase 109 39 - 117 U/L [facility] 05/15/2022 12:0 1 PM EST 05/15/2022 12:04 PM EST [facility] External Provider LAB BLO OD ORDERABLES Final Result [facility] [address], [place] [phone] * (ABNORMAL) CBC auto differential (05/15/2022 12:01 PM EST) White Blood Count 8.0 4.8 - 10.8 X10*3/uL [facility] Red Blood Count 5.59 4.60 - 5.80 X10*6/uL [facility] Hemoglobin 16.2 14.0 - 18.0 g/dl [facility] Hematocrit 48.8 42.0 - 52.0 % [facility] Mean Corpuscular Volume 87.3 80.0 - 98.0 fL [facility] Mean Corpuscular Hemoglobin 29.0 27.0 - 33.0 pg [facility] Mean Corpuscular HGB Conc 33.2 31.0 - 36.0 g/dl [facility] Red Cell Distribution Width 13.0 11.0 - 16.0 % [facility] Platelet Count 202 160 - 400 X10*3/uL [facility] Mean Platelet Volume 11.1 9.4 - 12.4 fL [facility] Neutrophils Percent Auto 68.0 45 - 73 % [facility] Imm Gran Pct Auto 0.6(H) 0.0 - 0.4 % [facility] Lymphocytes Percent Auto 23.6 20 - 40 % [facility] Monocytes Percent Auto 6.5 2 - 11 % [facility] Eosinophils Percent Auto 1.0 0 - 4 % [facility] Basophils Percent Auto 0.3 0 - 2 % [facility] NRBC Pct Auto 0.0 0.0 - 0.2 /100WBC [facility] Neutrophils Absolute Auto 5.4 2.0 - 8.3 x10*3/uL [facility] Imm Gran Abs Auto 0.05(H) 0.00 - 0.03 X10*3/uL [facility] Lymphocytes Absolute Auto 1.9 1.2 - 4.9 X10*3/uL [facility] Monocytes Absolute Auto 0.5 0.1 - 1.2 X10*3/uL [facility] Eosinophils Absolute Auto 0.1 0.0 - 0.4 X10*3/uL [facility] Basophils Absolute Auto 0.0 0.0 - 0.2 X10*3/uL [facility] NRBC Abs Auto 0.000 0.0 - 0.012 X10*3/uL [facility] 05/15/2022 12:0 1 PM EST 05/15/2022 12:04 PM EST us [facility] External Provider LAB BLO OD ORDERABLES Final Result Performing Organization Address City/State/[facility] Co de Phone Number [facility] [address] [place] [phone] documented in this encounter Visit Diagnoses Not on filedocumented in this encounter Care Teams Vice President Of Software Engineering Relationship Specialty Start Date End Date Celia Torres MD [address] [place] [address] PCP - General Family Medicine 03/10/12 02/02/25 Kenyatta Cruz MD [address] [place] [phone] PCP - General Family Medicine 02/03/25 Danielle Kaufman OD [address] [place] [address] Optometry 09/03/18 Larissa Trujillo DDS [address] [place] [phone] Resident Dental Vending Stand Supervisor 05/23/13 Obdulia Restrepo [address] [place] [address] [address] [place] [phone] Media Marketing Director 05/27/23 Dustin Falcon MD [address] [place] [address] [address] [place] [address] Orthopaedic Surgery 04/08/23 Belinda Sears MD [address] [facility] [address] [place] [address] Referring Physician Family Medicine 07/23/23 Dipak Urban MD [address] [place] [address] Surgeon General Surgery 04/17/23 Hiren Radford MD [address] [place] [address] Process Engineering Technician Cardiology 09/03/18 Serjio Christianson MD [address] [place] [address] Vascular 01/26/24 documented as of this encounter
--- OUTSIDE RECORDS SUMMARY | 2025-03-16 22:33 | XMS_ITS | Encounter Summary ---
Author Organization [facility] Address [address] [place] [address] Care Team Providers Care Biological Sciences Professor Name Role Phone Ramon West MD Unavailable Ramon West MD Primary Care Provider Encounter Details Date Type Department Care Team (Late st Contact Info) Description 11/11/2018 Scanned Document [facility] 3 ICU [address] [place] [address] Provider, Generic Social History Tobacco [...] documented as of this encounter Care Teams Biological Sciences Professor Relationship Specialty Start Date End Date Ramon West MD [address] [address] PCP - General Surgery, Cardiac 10/09/22 Ramon West MD [address] [address] Surgery, Cardiac 08/26/22 Hiren Radford [address] [place] [address] Pediatric Social Worker Cardiovascular Disease 10/02/22 [facility] 230 [place] [address] Primary Care Provider General Medicine 10/02/22 documented as of this encounter
--- OUTSIDE RECORDS SUMMARY | 2025-03-16 22:33 | XMS_ITS | Encounter Summary ---
Author Organization [employer] Address [address] [facility] 7t [place] [address] Care Team Providers Care Sheet Metal Technician Name Role Phone Celia Torres MD Primary Care Provider [phone] Danielle Kaufman OD Unavailable [phone] Larissa Trujillo DDS Unavailable Unavailabl e Obdulia Restrepo Unavailable [phone] Dustin Falcon MD Unavailable Belinda Sears MD Unavailable [phone] Dipak Urban MD Unavailable [phone] Hiren Radford MD Unavailable [phone] Kenyatta Cruz MD Primary Care Provider [phone] Reason for Visit * Reason Comments Med Refill Encounter Details Date Type Department Care Team (Late st Contact Info) Description 02/10/2023 Refill [facility] 505 [place], [place] [phone] Celia Torres MD 505 [place], [place] [address] Chronic pain syndrome (Primary Dx) Social History [...] documented as of this encounter Care Teams Sheet Metal Technician Relationship Specialty Start Date End Date Celia Torres MD 230 [place] [address] PCP - General Family Medicine 03/10/12 02/02/25 Kenyatta Cruz MD [address] [place] [address] PCP - General Family Medicine 02/03/25 Danielle Kaufman OD 230 [place] [address] Optometry 09/03/18 Larissa Trujillo DDS 230 [place] [address] Resident Dental Salesperson China And Glassware 05/23/13 Obdulia Restrepo [address] [place] [address] Stamp Presser 05/27/23 Dustin Falcon MD [address] [place] [address] [address] [place] [address] Orthopaedic Surgery 04/08/23 Belinda Sears MD 575 [facility] 404 [place] [address] Referring Physician Family Medicine 07/23/23 Dipak Urban MD [address] [place] [address] 3rd [place] [address] Surgeon General Surgery 04/17/23 Hiren Radford MD 5[address] [place] [address] Membership Assistant Cardiology 09/03/18 Serjio Christianson MD 3500 [place] [address] Vascular 01/26/24 documented as of this encounter
--- OUTSIDE RECORDS SUMMARY | 2025-03-16 22:33 | XMS_ITS | Encounter Summary ---
Author Organization [employer] Address [address] [place] [address] 7t [place] [address] Care Team Providers Care Client Relationship Manager Name Role Phone Celia Torres MD Primary Care Provider [phone] Danielle Kaufman OD Unavailable [phone] Larissa Trujillo DDS Unavailable Unavailabl e Obdulia Restrepo Unavailable [phone] Dustin Falcon MD Unavailable Belinda Sears MD Unavailable [phone] Dipak Urban MD Unavailable [phone] Hiren Radford MD Unavailable [phone] Kenyatta Cruz MD Primary Care Provider [phone] Encounter Details Date Type Department Care Team (Late st Contact Info) Description 10/14/2022 Orders Only [facility] 230 [place], [place] [phone] Shalonda Srinivasan, PharmD 230 [place], [place] [phone] Social History Tobacco Use Types Packs/Day Years [...] documented as of this encounter Care Teams Client Relationship Manager Relationship Specialty Start Date End Date Celia Torres MD 230 [place] [address] PCP - General Family Medicine 03/10/12 02/02/25 Kenyatta Cruz MD [address] [place] [address] PCP - General Family Medicine 02/03/25 Danielle Kaufman OD 230 [place] [address] Optometry 09/03/18 Larissa Trujillo DDS 230 [place] [address] Resident Dental Waterworks Operator 05/23/13 Obdulia Restrepo [address] [place] [address] Dr [address] [place] [address] Warehousing Technician 05/27/23 Dustin Falcon MD [address] [place] [address] Dr [address] [place] [address] Orthopaedic Surgery 04/08/23 Belinda Sears MD [address] [place] [address] [address] [place] [address] Referring Physician Family Medicine 07/23/23 Dipak Urban MD [address] [place] [address] Drive 3rd [place] [address] Surgeon General Surgery 04/17/23 Hiren Radford MD 5[address] [place] [address] Congressional District Aide Cardiology 09/03/18 Serjio Christianson MD 3500 [place] [address] Vascular 01/26/24 documented as of this encounter
--- OUTSIDE RECORDS SUMMARY | 2025-03-16 22:33 | XMS_ITS | Encounter Summary ---
Author Organization [employer] Address [address] [place] [address] 7t [place] [address] Care Team Providers Care Sort Line Worker Name Role Phone Celia Torres MD Primary Care Provider [phone] Danielle Kaufman OD Unavailable [phone] Larissa Trujillo DDS Unavailable Unavailabl e Obdulia Restrepo Unavailable [phone] Dustin Falcon MD Unavailable Belinda Sears MD Unavailable [phone] Dipak Urban MD Unavailable [phone] Hiren Radford MD Unavailable [phone] Kenyatta Cruz MD Primary Care Provider [phone] Reason for Visit * Reason Comments Med Refill Encounter Details Date Type Department Care Team (Late st Contact Info) Description 11/15/2022 Refill [facility]S 505 [place], [place] [phone] Celia Torres MD 505 [place] [address] S/P aortic bifurcation bypass graft Social History [...] documented as of this encounter Care Teams Sort Line Worker Relationship Specialty Start Date End Date Celia Torres MD 230 [place] [address] PCP - General Family Medicine 03/10/12 02/02/25 Kenyatta Cruz MD [address] [place] [address] PCP - General Family Medicine 02/03/25 Danielle Kaufman OD 230 [place] [address] Optometry 09/03/18 Larissa Trujillo DDS 230 [place] [address] Resident Dental City Comptroller 05/23/13 Obdulia Restrepo [address] [place] [address] [address] [place] [address] Independent Freight Agent 05/27/23 Dustin Falcon MD [address] [place] [address] Dr [address] [place] [address] Orthopaedic Surgery 04/08/23 Belinda Sears MD [address] [facility] [address] [place] [address] Referring Physician Family Medicine 07/23/23 Dipak Urban MD [address] [place] [address] 3rd [place] [address] Surgeon General Surgery 04/17/23 Hiren Radford MD [address] [place] [address] Exceptional Student Education Teacher Cardiology 09/03/18 Serjio Christianson MD 3500 [place] [address] Vascular 01/26/24 documented as of this encounter
--- OUTSIDE RECORDS SUMMARY | 2025-03-16 22:33 | XMS_ITS | Encounter Summary ---
Author Organization [employer] Address [address] [place] [address] 7t [place] [address] Care Team Providers Care Pin Game Machine Inspector Name Role Phone Celia Torres MD Primary Care Provider [phone] Danielle Kaufman OD Unavailable [phone] Larissa Trujillo DDS Unavailable Unavailabl e Obdulia Restrepo Unavailable [phone] Dustin Falcon MD Unavailable Belinda Sears MD Unavailable [phone] Dipak Urban MD Unavailable Hiren Radford MD Unavailable [phone] Kenyatta Cruz MD Primary Care Provider [phone] Reason for Visit * Reason Onset Date Comments triage 05/15/2022 Encounter Details Date Type Department Care Team (Late st Contact Info) Description 05/15/2022 Telephone [facility] 230 [place] [address] Celia Torres MD 505 [place], [place] [phone] triage Social History Tobacco Use Types Packs/Day [...] returned to patient who does not need photographic editor. Patient reports that he is having a [...] self and will access emergent care at [facility] now. Reviewed with pt to contact [...] on filedocumented in this encounter Care Teams Pin Game Machine Inspector Relationship Specialty Start Date End Date Celia Torres MD [address] [place] [address] PCP - General Family Medicine 03/10/12 02/02/25 Kenyatta Cruz MD 505 [place] [address] PCP - General Family Medicine 02/03/25 Shae DanielleSYLVIA 230 [place] [address] Optometry 09/03/18 Larissa Trujillo DDS 230 [place] [address] Resident Dental Vice President Of Development 05/23/13 Obdulia Restrepo [address] [facility] [address] [place] [address] Pesticide Control Inspector 05/27/23 Dustin Falcon MD [address] [place] [address] 203 [place] [address] Orthopaedic Surgery 04/08/23 Belinda Sears MD [address] [facility] 404 [place] [address] Referring Physician Family Medicine 07/23/23 Dipak Urban MD [address] [place] [address] 3rd [place] [address] Surgeon General Surgery 04/17/23 Hiren Radford MD 596 [place] [address] Weather Stripper Cardiology 09/03/18 Serjio Christianson MD [address] [place] [address] Vascular 01/26/24 documented as of this encounter
--- OUTSIDE RECORDS SUMMARY | 2025-03-16 22:33 | XMS_ITS | Encounter Summary ---
Author Organization [employer] Address [address] [place] [address] 7t [place] [address] Care Team Providers Care Global Marketing Specialist Name Role Phone Celia Torres MD Primary Care Provider [phone] Danielle Kaufman OD Unavailable [phone] Larissa Trujillo DDS Unavailable Unavailabl e Obdulia Restrepo Unavailable [phone] Dustin Falcon MD Unavailable Belinda Sears MD Unavailable [phone] Dipak Urban MD Unavailable [phone] Hiren Radford MD Unavailable [phone] Kenyatta Cruz MD Primary Care Provider [phone] Encounter Details Date Type Department Care Team (Latest Contact Info) Description 10/24/2020 Abstract [facility] CONVERSIONS Dental, Provider, DDS Social History [...] on filedocumented in this encounter Care Teams Global Marketing Specialist Relationship Specialty Start Date End Date Celia Torres MD [address] [place] [phone] PCP - General Family Medicine 03/10/12 02/02/25 Kenyatta Cruz MD 505 [place] [address] PCP - General Family Medicine 02/03/25 Danielle Kaufman OD 230 [place] [address] Optometry 09/03/18 Larissa Trujillo DDS 230 [place] [address] Resident Dental Business Development Director 05/23/13 Obdulia Restrepo [address] [place] [address] [address] [place] [address] Mechanic Senior 05/27/23 Dustin Falcon MD [address] [place] [address] [address] [place] [address] Orthopaedic Surgery 04/08/23 Belinda Sears MD [address] [facility] 404 [place] [address] Referring Physician Family Medicine 07/23/23 Dipak Urban MD [address] [place] [address] Drive 3rd [place] [address] Surgeon General Surgery 04/17/23 Hiren Radford MD 596 [place] [address] Molded Goods Controls Operator Cardiology 09/03/18 Serjio Christianson MD 3500 [place] [address] Vascular 01/26/24 documented as of this encounter
--- OUTSIDE RECORDS SUMMARY | 2025-03-16 22:33 | XMS_ITS | Clinical Summary ---
Author Organization [employer] Address [address] [place] [address] 7t [place] [address] Care Team Providers Care Chrome Tanner Name Role Phone Danielle Kaufman OD Unavailable [phone] Larissa Trujillo DDS Unavailable Unavailabl e Obdulia Restrepo Unavailable [phone] Dustin Falcon MD Unavailable Belinda Sears MD Unavailable [phone] Dipak Urban MD Unavailable [phone] Hiren Radford MD Unavailable [phone] Kenyatta Cruz MD Primary Care Provider [phone] Allergies Active Allergy Reactions Criticality Noted Date [...] surgery on t he circ sys 09/16/2022 buttermaker helper (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 505 [place], [place] [phone] Celia Torres MD 01/28/2025 Telephone [facility] 230 [place], [place] [phone] Celia Torres MD lab work request 01/14/2025 Refill [facility] 505 [place] [address] Lali Croft FNP Benign hypertension from Last [...] Procedure Name Priority Date/Time Associated Diagnosis Comments US RETROPERITONEAL COMPLETE Routine 03/16/2025 2:[address] CHEST W CONTRAST Routine 03/11/2025 4 [...] Recently Relevant to Health Maintenance Results * US Retroperitoneal Complete (03/16/2025 2:44 PM EST) Anatomical Region Laterality Modality Ultrasound 03/16/2025 2:44 PM EST Narrative 03/16/2025 3:47 PM EST [place] [address] Ultrasound Report Signed Patient: David Gurrola MR#: [id number] : 1965 Acct:[id number] Age/Sex: 59 / M ADM Date: 03/16/25 Loc: HO.US Attending Dr: Shabnam MCINTYRE Ordering Physician: Shabnam Galarza Date of Service: 03/16/25 Procedure(s): US retroperitoneal comp Accession Number(s): [id number] cc: Shabnam Galarza; Celia Torres MD Reason for Exam: R39.89 - SENSATION OF PRESSURE IN BLADDER AREA EXAMINATION: US RETROPERITONEAL COMPLETE (RENAL) CLINICAL INFORMATION: R39.89 - SENSATION OF PRESSURE IN BLADDER AREA. COMPARISON: CT of abdomen/pelvis on May 30, 2023 TECHNIQUE: Real-time imaging of the kidneys and bladder. FINDINGS: RIGHT KIDNEY: 12.3 x 5.4 x 5.9 cm (SAG x AP x TRV). Normal in size and echogenicity. Hypertrophic column of Derrell. No shadowing stones. No hydronephrosis. LEFT KIDNEY: 12.7 x 6.3 x 2.9 cm (SAG x AP x TRV). Normal in size and echogenicity. Hypertrophic column of Derrell. No shadowing stones. No hydronephrosis. BLADDER: Well distended and appears normal. Bilateral ureteral jets are demonstrated. Prevoid bladder volume is 267 ml. Postvoid bladder volume is 16 ml. Prostate gland: Volume of 30.6 ml (mildly enlarged). US/US retroperitoneal comp IMPRESSION: Unremarkable sonographic appearance of the urinary bladder. Prevoid bladder volume of 267 ml. Postvoid bladder volume of 16 ml.. Electronically signed by: Art Nesbitt MD 03/16/2025 03:45 PM EST Dictated By: Art Nesbitt MD Signed By: <Electronically signed by Art Nesbitt MD in OV> 03/16/25 1545 DD/ 1444 TD/TT: 03/16/25 1506 Fish Frog Or Oyster Farmer: Procedure Note Donotuseinterpreter, Image - 03/16/[address] [address] Ultrasound Report Signed Patient: Jesus Gurrola#: [id number] : 1965Acct:[id number] Age/Sex: 59 / MADM Date: 03/16/25 Loc: HO.US Attending Dr: Shabnam MCINTYRE Ordering Physician: Shabnam Galarza Date of Service: 03/16/25 Procedure(s): US retroperitoneal comp Accession Number(s): [id number] cc: Shabnam Galarza; Celia Torres MD Reason for Exam: R39.89 - SENSATION OF PRESSURE IN BLADDER AREA EXAMINATION: US RETROPERITONEAL COMPLETE (RENAL) CLINICAL INFORMATION: R39.89 - SENSATION OF PRESSURE IN BLADDER AREA. COMPARISON: CT of abdomen/pelvis on May 30, 2023 TECHNIQUE: Real-time imaging of the kidneys and bladder. FINDINGS: RIGHT KIDNEY: 12.3 x 5.4 x 5.9 cm (SAG x AP x TRV). Normal in size and echogenicity. Hypertrophic column of Derrell. No shadowing stones. No hydronephrosis. LEFT KIDNEY: 12.7 x 6.3 x 2.9 cm (SAG x AP x TRV). Normal in size and echogenicity. Hypertrophic column of Derrell. No shadowing stones. No hydronephrosis. BLADDER: Well distended and appears normal. Bilateral ureteral jets are demonstrated. Prevoid bladder volume is 267 ml. Postvoid bladder volume is 16 ml. Prostate gland: Volume of 30.6 ml (mildly enlarged). US/US retroperitoneal comp IMPRESSION: Unremarkable sonographic appearance of the urinary bladder. Prevoid bladder volume of 267 ml. Postvoid bladder volume of 16 ml.. Electronically signed by: Art Nesbitt MD 03/16/2025 03:45 PM EST RP Dictated By: Art Nesbitt MD Signed By: <Electronically signed by Art Nesbitt MD in OV> 03/16/25 1545 DD/ 1444 TD/TT: 03/16/25 1506 Fish Frog Or Oyster Farmer: us [facility] External Provider IMG US PROCEDURES Final Result * CT Chest w/ Contrast (03/11/2025 4:47 PM EST) Anatomical Region Laterality Modality Body, Chest Computed Tomogra phy 03/11/2025 4:47 PM EST Narrative 03/11/2025 4:49 PM EST [place] [address] CT Scan Report Signed Patient: David Gurrola MR#: [id number] : 1965 Acct:[id number] Age/Sex: 59 / M ADM Date: 03/11/25 Loc: HO.CT Attending Dr: Obdulia Restrepo NP Ordering Physician: Obdulia Restrepo NP Date of Service: 03/11/25 Procedure(s): CT chest w IV con Accession Number(s): [id number] cc: Celia Torres MD; Obdulia Restrepo NP Report Number: [id number]: Total DLP = 334.00 mGy-cm Reason for [...] in OV> 03/11/251647 DD/ 46 TD/TT: 03/11/251646 Fish Frog Or Oyster Farmer: Procedure Note Donotuseinterpreter, Image - 03/11/[address] [place] [address] [address] Scan Report Signed Patient: Jesus Gurrola#: [id number] : 1965Acct:[id number] Age/Sex: 59 / MADM Date: 03/11/25 Loc: HO.CT Attending Dr: Obdulia Restrepo NP Ordering Physician: Obdulia Restrepo NP Date of Service: 03/11/25 Procedure(s): CT chest w IV con Accession Number(s): [id number] cc: Celia Torres MD; Obdulia Restrepo NP Report Number: [id number]: Total DLP = 334.00 mGy-cm Reason for [...] in OV> 03/11/251647 DD/ 46 TD/TT: 03/11/251646 Fish Frog Or Oyster Farmer: [facility] External Provider IMG CT PROCEDURES Final Result * Creatinine, Serum (03/11/2025 8:08 AM EST) Creatinine, Serum 0.80 0.5 - 1.4 mg/dL [facility] Estimated Glomerular Filt Rate >60 [facility] Comment:Chronic Kidney Disea se: Estimated GFR < 60 mL/min/1.58p8Sgbipo Kidney Disease: Estimated GFR < 15 mL/min/1.73m2 03/11/2025 8:08 AM EST 03/11/2025 8:08 AM EST Generic External Data Provider LAB BLOOD ORDERAB LES Final Result [facility] [address] [place] [phone] * (ABNORMAL) Hemoglobin A1c (01/29/2025 7:29 AM EDT) Hemoglobin A1c 8.0(H) <6.0 % [facility] Comment:Hemoglobin A1C Refer ence Range Adults: 4.8 - 6.0 % Non diabetic: < 6.0 % Goal: < 7.0 %Additional Action Suggested: > 8.0 %Note: Hemoglobin A1c results are invalid for patients with abnormal amounts of HbF. Blood transfusions may impact the HbA1c concentration in the patient sample. Estimated Average Glucose 183 mg/dL [facility] Comment:eAG = Estimated ave rage glucose which is %A1C expressed asaverage glucose, using the formula of the F9S-KjwlsmoYnkgysq Glucose study (ADAG), Diabetes Care, Vol.31,#8,2007 Blood Venous blood specimen / Unknown 01/29/2025 7:29 AM EDT 01/29/2025 7:29 AM EDT us Celia Torres MD LAB BLOOD ORDERABLES Final Resul t [facility] [address] [place] [address] [phone] * (ABNORMAL) Lipid Panel, Standard (07/22/2024 8:06 AM EDT) Triglycerides 52 <150 mg/dL [facility] Comment:Desirable Triglyceri de: less than 150 mg/dLBorderline High Triglyceride 150-199 mg/dLHigh Triglyceride: 200-499 mg/dLVery High Triglyceride: greater than or equal to 5OO mg/dL Cholesterol 109 <200 mg/dL [facility] Comment:Desirable Cholestero l: less than 200 mg/dLBorderline High Cholesterol: 200-239 mg/dLHigh Cholesterol: greater than 239 mg/dL LDL Cholesterol Calculated 68 <100 mg/dL [facility] Comment:Desirable LDL: less than 100 mg/dLNear Optimal/Above Optimal LDL: 110- 129 mg/dLBorderline High LDL: 130-159 mg/dLHigh LDL: 160-189 mg/dLVery High LDL: greater than or equal to 190 mg/dL HDL Cholesterol 31(L) >40 mg/dL [facility] Comment:Desirable HDL: great er than 40 mg/dL Note: This HDL assay may give artificially low results in patients with liver disease. Blood Venous blood specimen / Unknown 07/22/2024 8:06 AM EDT 07/22/2024 8:06 AM EDT us Celia Torres MD LAB BLOOD ORDERABLES Final Resul t [facility] [address] [place] [address] [phone] * (ABNORMAL) Cologuard?? colon cancer screening (02/10/2024 6:22 AM EST) Cologuard Result Positive( A) Negative 02/17/2024 8:49 PM EST [employer] (CLIA #:[id number]) Comment: POSITIVE TEST RESULT. A positive Cologuard [...] Hart et al, N Engl J Med 2014;370(14):4866-9264.) Cologuard may produce a false negative or false positive result (no colorectal cancer or precancerous polyp present at colonoscopy follow up). A negative Cologuard test result does not guarantee the absence of CRC or advanced adenoma (pre-cancer). The current Cologuard screening interval is every 3 years. (Citizen [place] Cancer Society and U.S. Multi-Society Task Force). Cologuard performance data in a 10,000 patient pivotal study using colonoscopy as the reference method can be accessed at the following location: www.[employer]/results. Additional description of the Cologuard test process, warnings and precautions can be found at www.cologEnglishCentralrd.com. Stool specimen (specimen) 02/10/2024 6:22 AM EST 02/11/2024 12:14 PM EST us Celia Torres MD LAB MOLECULAR DIAGNOSTICS ORDERA BLES Final Result Performing Organization Address [facility] de Phone Number [employer] (CLIA #:[id number]) [address] [place] [address], * (ABNORMAL) ALBUMIN, RANDOM URINE W/CREATININE (04/27/2021 [...] ORDERABLES Final Resul t Performing Organization Address [facility] Co de Phone Number [facility] [address] from Last 3 Months or Most Recently Relevant to Health Maintenance Insurance [facility] STANDARD MEDICARE DENTAL-[facility] MEDICAID STAND ADULT Care Teams Chrome Tanner Relationship Specialty Start Date End Date Kenyatta Cruz MD 505 [place] [address] PCP - General Family Medicine 02/03/25 Danielle Kaufman OD 230 [place] [address] Optometry 09/03/18 Larissa Trujillo DDS [address] [place] [address] Resident Dental Test Tech 05/23/13 Obdulia Restrepo [address] [place] [address] [address] [place] [address] Personnel Placement Specialist 05/27/23 Dustin Falcon MD [address] [place] [address] [address] [place] [address] Orthopaedic Surgery 04/08/23 Belinda Sears MD 575 [facility] 404 [place] [address] Referring Physician Family Medicine 07/23/23 Dipak Urban MD [address] [place] [address] Drive 3rd [place] [address] Surgeon General Surgery 04/17/23 Hiren Radford MD 5[address] [place] [address] Fire Extinguisher Charger Cardiology 09/03/18 Serjio Christianson MD [address] [place] [address] Vascular 01/26/24
--- OUTSIDE RECORDS SUMMARY | 2025-03-16 22:33 | XMS_ITS | Encounter Summary ---
Author Organization [employer] Address [address] [place] [address] 7t [place] [address] Care Team Providers Care Global Head Advertiser Solutions Name Role Phone Celia Torres MD Primary Care Provider [phone] Danielle Kaufman OD Unavailable [phone] Larissa Trujillo DDS Unavailable Unavailabl e Obdulia Restrepo Unavailable [phone] Dustin Falcon MD Unavailable Belinda Sears MD Unavailable [phone] Dipak Urban MD Unavailable [phone] Hiren Radford MD Unavailable [phone] Kenyatta Cruz MD Primary Care Provider [phone] Reason for Visit * Reason Onset Date Comments Med Refill 11/11/2022 Encounter Details Date Type Department Care Team (Late st Contact Info) Description 11/11/2022 Telephone [facility] MED & PEDS [address] [place], [place] [id number] Celia Torres MD [address] [place] [address] Med Refill Social History Tobacco Use Types [...] (Ultram) 50 MG tablet Please sent to [id number] - [place] - [address] [facility] [place] documented in this encounter Plan of Treatment Not on file documented as of this encounter Visit Diagnoses Not on filedocumented in this encounter Additional Health Concerns Assessment Noted Time PHQ-9 Depression Total Score: 1 07/10/19 23 10:12 AM EDT documented as of this encounter Care Teams Global Head Advertiser Solutions Relationship Specialty Start Date End Date Celia Torres MD [address] [place] [address] PCP - General Family Medicine 03/10/12 02/02/25 Kenyatta Cruz MD [address] [place] [address] PCP - General Family Medicine 02/03/25 Danielle Kaufman OD [address] [place] [address] Optometry 09/03/18 Larissa Trujillo DDS [address] [place] [address] Resident Dental Carpenter Mold 05/23/13 Obdulia Restrepo [address] [place] [address] [place] [address] Circle Edger 05/27/23 Dustin Falcon MD [address] [place] [address] [address] [place] [address] Orthopaedic Surgery 04/08/23 Belinda Sears MD [address] [place] [address] Referring Physician Family Medicine 07/23/23 Dipak Urban MD [address] 3rd [place] [address] Surgeon General Surgery 04/17/23 Hiren Radford MD [address] [place] [address] Signal Helper Cardiology 09/03/18 Serjio Christianson MD [address] [place] [address] Vascular 01/26/24 documented as of this encounter
--- OUTSIDE RECORDS SUMMARY | 2025-03-16 22:33 | XMS_ITS | Encounter Summary ---
Author Organization [employer] Address [address] [facility] 7t [place] [address] Care Team Providers Care Projector Booth Operator Name Role Phone Celia Torres MD Primary Care Provider [phone] Danielle Kaufman OD Unavailable [phone] Larissa Trujillo DDS Unavailable Unavailabl e Obdulia Restrepo Unavailable [phone] Dustin Falcon MD Unavailable Belinda Sears MD Unavailable [phone] Dipak Urban MD Unavailable [phone] Hiren Radford MD Unavailable [phone] Kenyatta Cruz MD Primary Care Provider [phone] Reason for Visit * Reason Onset Date Comments Med Refill 02/07/2023 Encounter Details Date Type Department Care Team (Late st Contact Info) Description 02/07/[address] [facility] MED & PEDS [address] [place], [place] [phone] Celia Torres MD [address] [place] [address] Social History Tobacco Use Types Packs/Day Years [...] 3:59 PM EDT TC to pt. Initial INVENTORY TECHNICIAN NV scheduled for 04/08/22 @ 2:30pm. * [...] documented as of this encounter Care Teams Projector Booth Operator Relationship Specialty Start Date End Date Celia Torres MD [address] [place] [address] PCP - General Family Medicine 03/10/12 02/02/25 Kenyatta Cruz MD [address] [place] [address] PCP - General Family Medicine 02/03/25 Danielle Kaufman OD 230 [place] [address] Optometry 09/03/18 Larissa Trujillo DDS [address] [place] [address] Resident Dental Manager Metal 05/23/13 Obdulia Restrepo [address] [place] [address] [address] [place] [address] Resident In Diagnostic Radiology 05/27/23 Dustin Falcon MD [address] [place] [address] [address] [place] [address] Orthopaedic Surgery 04/08/23 Belinda Sears MD [address] [facility] 404 [place] [address] Referring Physician Family Medicine 07/23/23 Dipak Urban MD [address] [place] [address] Drive 3rd [place] [address] Surgeon General Surgery 04/17/23 Hiren Radford MD [address] [place] [address] Broadband Installer Cardiology 09/03/18 Serjio Christianson MD [address] [place] [address] Vascular 01/26/24 documented as of this encounter
--- OUTSIDE RECORDS SUMMARY | 2025-03-16 22:33 | XMS_ITS | Encounter Summary ---
Author Organization [employer] Address [address] [facility] 7t [place] [address] Care Team Providers Care Micro Lab Analyst Name Role Phone Danielle Kaufman OD Unavailable [phone] Larissa Trujillo DDS Unavailable Unavailabl e Obdulia Restrepo Unavailable [phone] Dustin Falcon MD Unavailable Belinda Sears MD Unavailable [phone] Dipak Urban MD Unavailable [phone] Hiren Radford MD Unavailable [phone] Kenyatta Cruz MD Primary Care Provider [phone] Encounter Details Date Type Department Care Team [...] EST documented in this encounter Results * US Retroperitoneal Complete (03/16/2025 2:44 PM EST) Anatomical Region Laterality Modality Ultrasound 03/16/2025 2:44 PM EST Narrative 03/16/2025 3:47 PM EST [address] [address] Ultrasound Report Signed Patient: David Gurrola MR#: [id number] : 1965 Acct:[id number] Age/Sex: 59 / M ADM Date: 03/16/25 Loc: HO.US Attending Dr: Shabnam Galarza [facility] Ordering Physician: Shabnam Galarza [facility] Date of Service: 03/16/25 Procedure(s): US retroperitoneal comp Accession Number(s): [id number] [facility]; Celia Torres MD Reason for Exam: R39.89 [...] by: Art Nesbitt MD 03/16/2025 03:45 PM [facility] Dictated By: Art Nesbitt MD Signed By: <Electronically signed by Art Nesbitt MD in OV> 03/16/25 1545 DD/ 1444 TD/TT: 03/16/25 1506 Ticket Broker: Procedure Note Donotuseinterpreter, Image - 03/16/[address] [address] Ultrasound Report Signed Patient: David GurrolaMR#: [id number] : 1965Acct:[id number] Age/Sex: 59 / MADM Date: 03/16/25 Loc: HO.US Attending Dr: Shabnam MCINTYRE Ordering Physician: Shabnam Galarza Date of Service: 03/16/25 Procedure(s): US retroperitoneal comp Accession Number(s): [id number] cc: Shabnam Galarza; Celia Torres MD Reason [...] 03/16/25 1545 DD/ 1444 TD/TT: 03/16/25 1506 Ticket Broker: [facility] External Provider IMG US PROCEDURES Final Result * CT Chest w/ Contrast (03/11/2025 4:47 PM EST) Anatomical Region Laterality Modality Body, Chest Computed Tomogra phy 03/11/2025 4:47 PM EST Narrative 03/11/2025 4:49 PM EST [address] [address] [address] Scan Report Signed Patient: David Gurrola MR#: [id number] : 1965 Acct:[id number] Age/Sex: 59 / M ADM Date: 03/11/25 Loc: HO.CT Attending Dr: Obdulia Restrepo NP Ordering Physician: Obdulia Restrepo NP Date of Service: 03/11/25 Procedure(s): CT chest w IV con Accession Number(s): [id number] cc: Celia Torres MD; Obdulia Restrepo NP Report Number: [id number]: Total DLP = 334.00 mGy-cm Reason for [...] signed by Parker Aguilar MD in OV> 03/11/258 DD/ 46 TD/TT: 03/11/251646 Ticket Broker: Procedure Note Donotuseinterpreter, Image - 03/11/[address] [address] [address] Scan Report Signed Patient: Jesus Gurrola#: [id number] : 1965Acct:[id number] Age/Sex: 59 / MADM Date: 03/11/25 Loc: HO.CT Attending Dr: Obdulia Restrepo NP Ordering Physician: Obdulia Restrepo NP Date of Service: 03/11/25 Procedure(s): CT chest w IV con Accession Number(s): [id number] cc: Celia Torres MD; Obdulia Restrepo NP Report Number: [id number]: Total DLP = 334.00 mGy-cm Reason for [...] signed by Parker Aguilar MD in OV> 03/11/258 DD/ 46 TD/TT: 12/05/25 1647 Ticket Broker: us [facility] External Provider IMG CT PROCEDURES Final Result * Creatinine, Serum (03/11/2025 8:08 AM EST) Creatinine, Serum 0.80 0.5 - 1.4 mg/dL [facility] Estimated Glomerular Filt Rate >60 [facility] Comment:Chronic Kidney Disea se: Estimated GFR < 60 mL/min/1.61b0Cbfeuf Kidney Disease: Estimated GFR < 15 mL/min/1.73m2 03/11/2025 8:08 AM EST 03/11/2025 8:08 AM EST Generic External Data Provider LAB BLOOD ORDERAB LES Final Result [facility] [address] [place] [address] [phone] documented in this encounter Visit Diagnoses Not on filedocumented in this encounter Additional Health Concerns Assessment Noted Time PHQ-9 Depression Total Score: 2 12/08/19 8:50 AM EDT documented as of this encounter Care Teams Micro Lab Analyst Relationship Specialty Start Date End Date Kenyatta Cruz MD 505 [place] [address] PCP - General Family Medicine 02/03/25 Danielle Kaufman OD [address] [place] [address] Optometry 09/03/18 Larissa Trujillo DDS [address] [place] [address] Resident Dental Counter Manager 05/23/13 Obdulia Restrepo [address] [place] [address] [address] [place] [address] Volunteer Services Manager 05/27/23 [place] Falcon MD [address] [place] [address] [address] [place] [address] Orthopaedic Surgery 04/08/23 Belinda Sears MD [address] [address] Referring Physician Family Medicine 07/23/23 Dipak Urban MD [address] [facility] 3rd [place] [address] Surgeon General Surgery 04/17/23 Hiren Radford MD [address] [place] [address] Press Tender Incendiary Grenade Cardiology 09/03/18 Serjio Christianson MD [address] [place] [address] Vascular 01/26/24 documented as of this encounter
--- OUTSIDE RECORDS SUMMARY | 2025-03-16 22:33 | XMS_ITS | Clinical Summary ---
Author Organization [facility] Address [address] [place] [address] Care Team Providers Care Crop Farm Helper Name Role Phone Ramon West MD Unavailable [...] place to sleep or slept in a penitentiary (including now)? No 08/26/2022 Sex and Gender [...] this topic Medical Devices Implanted Type Area Public Speaking Teacher Device Identifier Shelf Expiration Date Model / Serial / Lot [id number] Graft Cv Glwv 10mm 30cm Abd Thrx Hydrolyzable Geltn Poly Wvn - [id number] Implanted:Qty: 1 on 08/26/2022 by Ramon West MD at [facility] Graft N/A: Aorta [employer] [id number] 05/07/2025 [id number] / [id number] / [id number] Graft Vasc Glwv Vascutek 16mm 30cm Thor Abdominal Twl Wvn - [id number] Implanted:Qty: 1 on 08/27/2022 by Ramon West MD at [facility] Graft N/A: Aorta [employer] 10/05/2023 [id number] / [id number] / [id number] Patch Vasc [id number] Xenosure Bvn Pericard Sterl Disp - [id number] Implanted:Qty: 1 on 08/26/2022 by Ramon West MD at [facility] Tissue N/A: Aorta [employer] [id number] 03/04/2028 [id number] / [id number] / [id number] Description:Patch type, size , and expiration date [...] 9.0(H) <5.7 % 08/25/2022 3:47 AM EDT [facility] Comment: A1c% Interpretation 5.7 - 6.0 Increase risk of diabetes 6.1 - 6.4 Higher risk of diabetes > or = 6.5 Consistent with diabetes Diabetes Care, 33(Supp 1):S1-S61, 2010 Estimated Average Glucose 212 mg/dL 08/25/2022 3:47 AM EDT [facility] Blood specimen / Unknown 08/24/2022 11:29 PM EDT 08/24/2022 11:39 PM EDT us Ritesh Edwards MD LAB BLOOD ORDERABLES Final Result [facility] See Below [address] [address] from Last 3 Months or Most Recently Relevant to Health Maintenance Insurance [facility] MEDICARE PART A & B MEDICARE PART A & B [facility] Advance Directives Documents on File Type Date Recorded Patient Fusing Machine Tender Expl anation Advance Directive-Scan 10/07/2022 labs Advance [...] Child, Parent, Adult Sibling, Grandparent) Care Teams Crop Farm Helper Relationship Specialty Start Date End Date Ramon West MD [address] [address] PCP - General Surgery, Cardiac 10/09/22 Ramon West MD [address] [address] Surgery, Cardiac 08/26/22 Hiren Radford [address] [place] [address] Journeyman Power Plant Operator Cardiovascular Disease 10/02/22 [facility] [address] [place] [address] Primary Care Provider General Medicine 10/02/22
== END 2025-03-16 14:19 | disposition home or self-care (01) ==
LOC: HO.US 14:18
PROVIDERS: PCP Student in an Organized Health Care Education/Training Program; Visit Provider Nurse Practitioner Family
DX: R39.89 Other symptoms and signs involving the genitourinary system (principal)
CPT/HCPCS: 76770

== ENCOUNTER → 2025-03-16 14:20 | Outpatient (BNV) | payer MEDICARE, MEDICAID, SELFPAY | PROVIDERS: PCP Student in an Organized Health Care Education/Training Program; Visit Provider Radiology Body Imaging | DX: R39.89 Other symptoms and signs involving the genitourinary system (principal) | CPT/HCPCS: 76770 ==

== ENCOUNTER 2025-03-18 09:27 | Outpatient (AMB) | payer MEDICARE, MEDICAID, SELFPAY ==
--- NOTE | 2025-03-18 09:55 | MHC.OFFVIS ---
Vital Signs 03/18/25 09:56 Height 5 ft 6 in Weight 225 lb 4 oz BMI 36.4 BP 152/60 H Blood Pressure Location Rt brachial Position Sitting Pulse 60 Pulse Source Pulse Oximeter Pulse Oximetry (%) 96 Oxygen Delivery Method Room Air Intake Visit Reasons: chronic cough, CT FU Allergies cinnamon Allergy (Severe, Verified 03/18/25 09:58) Swelling Penicillins Allergy (Mild, Verified 03/18/25 09:58) RASH lisinopril Adverse Reaction (Intermediate, Verified 03/18/25 09:58) Cough cockaroach Allergy (Uncoded 03/18/25 09:58) Unknown HPI Comments Details: David is a pleasant 59 year old male, former 20 pack year smoker, quit 1992, with underlying asthma and aortic coarctation (repaired multiple times since childhood) s/p TEVAR which was complicated by MSSA infection in August 2022 s/p left upper lobectomy and left lower lobe superior segment wedge resection, maintained on suppressive keflex 500 mg BID, per [facility] ID, indefinitely. He is currently under the care of ID with Dr. Sears who maintains Keflex prescription. He is also followed by Dr. Boone, at [facility]. He initially presented to office as he reported intermittent productive cough with green sputum in the morning that was present since the surgery in 2022. He completed a course of Levaquin June 2023 in addition to Keflex and had complete resolution of cough. At the last visit he reported return of productive cough with whitish sputum with associated wheezing and dyspnea, Breo was prescribed however patient using intermittently. Since the last visit, the cough has returned, and he reports coughing a lot, particularly while sleeping. The cough is productive of sputum that is sometimes green and sometimes white, which he finds difficult to expectorate, notes associated chest congestion. He produces green sputum daily. The patient experienced a significant episode of wheezing two days prior to the visit, for which he used his albuterol inhaler. He has a history of allergies but is not currently taking any allergy medication. He reports associated itching in his throat. He has a Breo inhaler but admits to not taking it daily as prescribed. Today he presents to review chest CT results. He denies any visits to urgent care or hospitalizations related to respiratory distress. [facility] Medical History Family history of anesthesia complication Arthritis Vertigo MSSA (methicillin susceptible Staphylococcus aureus) infection Sludge in gallbladder Diabetes HTN (hypertension) Coarctation of aorta Asthma Surgical History History of uvulopalatopharyngoplasty Hx of tonsillectomy Hx of heart surgery Hx of heart surgery Hx of circumcision S/P lobectomy of lung Status post aortic coarctation stent placement Social History Are you a primary hospice care consultant to a significant other at home: No Do you presently have visiting nurse or other home services: No Alcohol intake: current Alcohol intake frequency: former alcohol drinker Patient Tobacco Use Status: Former Tobacco user Tobacco use type: Cigarette Cigarette Packs Per Day: 0.5 Years Smoked: 5 Substance Use Type: Marijuana Current occupational status: disabled Current occupation: right hand dominant Review of Systems Narrative Const Denies chills, Denies excessive sweating, Denies fever(s), Denies headache(s) and Denies night sweats Eyes Denies dry eyes and Denies irritation ENT Reports Normal hearing present, Denies headache(s), Denies nasal congestion, Denies nasal discharge and Denies sore throat Card Denies chest pain, Denies chest pain at rest, Denies chest pain with activity, Denies claudication, Denies leg edema, Reports dyspnea on exertion, Denies orthopnea and Denies paroxysmal nocturnal dyspnea Resp Reports change in phlegm color, Reports chest congestion, Reports cough, Denies hemoptysis, Denies pain on inspiration, Denies pain with cough, Reports dyspnea on exertion, Denies stridor and Reports wheezing Musc Denies myalgias Neuro Reports Normal hearing present and Denies headache(s) Endo Denies excessive sweating Otto/Lymph Denies lymphadenopathy Aller/Immun Denies seasonal rhinorrhea and Reports wheezing Physical Exam Exam Exam: Vital Signs: Last Vital Signs Pulse 60 03/18/25 09:56 BP 152/60 H 03/18/25 09:56 Pulse Ox 96 03/18/25 09:56 Oxygen Delivery Method Room Air 03/18/25 09:56 BMI result Body Mass Index 36.4 Const General: cooperative, healthy appearing, comfortable, no acute distress, well developed and alert Nutritional Appearance: obese Orientation/consciousness: patient oriented x3 Limitations: no limitations HEENT Head: Yes normal to inspection, Yes normocephalic and Yes atraumatic Ears: hearing grossly normal bilaterally and external ears normal Eyes General: appearance normal, both eyes and all related structures Eyelids: Yes eyelids normal Sclerae: sclerae normal EOM: EOMs intact bilaterally Neck Neck: Yes normal visual inspection and Yes no lymphadenopathy Lymphatic: no lymphadenopathy noted Chest Chest palpation & inspection: normal inspection of the chest Resp Effort & Inspection: normal respiratory effort, able to speak in complete sentences, no audible wheezes, no cough, no stridor, not tachypneic, no tripod positioning and no use of accessory muscles Auscultation: clear to auscultation bilaterally Cardio Jugular venous distension: no JVD Rate: regular rate Rhythm: regular rhythm Skin Other: warm, dry General skin exam: no rashes or lesions noted Neuro General: patient oriented x3 Cranial nerves: Yes Normal hearing present Cognition (Neuro): normal cognition Gait exam (Neuro): Normal gait present Extrem General: Yes normal to inspection, Yes capillary refill normal, Yes no clubbing, cyanosis or edema and Yes no pedal edema Psych Appearance: grossly normal and well kempt Speech and movement: Normal speech and movement present and Clear speech present Affect: normal affect Attitude: cooperative Thought process: Normal thought process present Thought content: Normal thought content present Insight: Good insight present (Psych) Judgement: Good judgement present (Psych) Results Reviewed Results Reviewed: [place] [address] CT Scan Report Signed Patient: David Gurrola MR#: [id number] : 1965 Acct:[id number] Age/Sex: 59 / M ADM Date: 03/11/25 Loc: HO.CT Attending Dr: Obdulia Restrepo NP Ordering Physician: Obdulia Restrepo NP Date of Service: 03/11/25 Procedure(s): CT chest w IV con Accession Number(s): [id number] cc: Celia Torres MD; Obdulia Restrepo NP~ Report Number: [id number]: Total DLP = 334.00 mGy-cm Reason for Exam: A49.01 - Methicillin susceptible Staphylococcus aureus infection, unspec... CLINICAL HISTORY: A49.01 - Methicillin susceptible Staphylococcus aureus infection, unspec... CT Chest with IV contrast: Comparison: 02/10/2024, 07/09/2023 Findings: Heart size is enlarged, with no pericardial effusion. Aorta diameter is normal Pulmonary artery diameter is unremarkable. Lymph nodes: No adenopathy. Trachea and Esophagus: Unremarkable. Lungs: Status post left upper lobectomy, there is volume loss and shift of heart and mediastinum into the left chest. Pleura: No pleural effusion. There is left apical postoperative granulation soft tissue unchanged from previous exam. A small 11 mm nodular soft tissue pleural-based, postoperative scar, in the posterior left lung base is unchanged from previous exam likely residual scar. Skeletal: No fractures. Stable posterior left rib deformity related to prior thoracotomy. Below the diaphragm: Regional visceral organs are unremarkable. Impression: Stable partial left pneumonectomy. Lungs are otherwise clear. No consolidations. 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 This document has been electronically signed by: Parker Aguilar MD on 03/11/2025 16:47:43 Dictated By: Parker Aguilar MD Signed By: <Electronically signed by Parker Aguilar MD in OV> 03/11/251647 DD/ 46 TD/TT: 03/11/251646 Applied Biology Professor: Assessment & Plan Assessment & Plan (1) Asthma: Code(s): J45.909 - Unspecified asthma, uncomplicated Category: Medical (2) Status post partial lobectomy of lung: Code(s): Z90.2 - Acquired absence of lung [part of] Category: Surgical (3) Restrictive ventilatory defect: Code(s): R94.2 - Abnormal results of pulmonary function studies Category: Medical Plan Explained to the patient that since his cough improved with Levaquin in the past, we would try another course of the antibiotic. Informed him that his recent CT chest was reassuringly stable. We discussed that if the cough persists after this treatment, the next step would be to collect a sputum sample for laboratory analysis. Discussed that if we cannot get a sufficient sample and the productive cough persists, we may consider a bronchoscopy for deep cultures. Emphasized the importance of using his Breo inhaler every single day as a preventative measure to better control respiratory symptoms and instructed him to rinse his mouth after each use. Advised him to call the office if his cough does not improve or if it returns after he finishes the antibiotic. A follow-up visit is scheduled in three months. All questions were answered and patient is in agreement of plan. Patient was informed and verbally consented to the use of an ambient scribe for clinic note documentation during this visit. Medications: Refilled levofloxacin 750 mg PO DAILY 14 tabs 0RF Breo Ellipta 200-25 mcg/dose (fluticasone furoate-vilanterol) 1 inh inhalation DAILY 60 ea 4RF NS Coding Level of Care Code Est Pt Level 4 (25863) Add On Problem Visit Only Diagnoses Asthma J45.909 Status post partial lobectomy of lung Z90.2 Restrictive ventilatory defect R94.2
[2025-03-18 09:56] VITALS: BP 152/60; PULSE 60; O2SAT 96; BMI 36.4
== END 2025-03-18 10:17 | disposition home or self-care (01) ==
LOC: HO.HPSW 09:27
PROVIDERS: PCP Student in an Organized Health Care Education/Training Program; Visit Provider Nurse Practitioner Family
DX: J45.909 Unspecified asthma, uncomplicated (principal); Z90.2 Acquired absence of lung [part of]; R94.2 Abnormal results of pulmonary function studies
CPT/HCPCS: 99214; G2211

== ENCOUNTER → 2025-03-18 09:27 | Outpatient (BNVA) | payer MEDICARE, MEDICAID, SELFPAY | PROVIDERS: PCP Student in an Organized Health Care Education/Training Program; Visit Provider Nurse Practitioner Family | DX: J45.909 Unspecified asthma, uncomplicated (principal); Z90.2 Acquired absence of lung [part of]; R94.2 Abnormal results of pulmonary function studies; Z87.891 Personal history of nicotine dependence; Z87.01 Personal history of pneumonia (recurrent) | CPT/HCPCS: 99212 ==

== ENCOUNTER 2025-03-21 12:51 | Outpatient (AMB) | payer MEDICARE, MEDICAID, SELFPAY ==
[2025-03-21 13:05] VITALS: BP 100/65; PULSE 60; BMI 36.3
--- NOTE | 2025-03-21 13:05 | A.OFFVIS_ITS ---
Vital Signs 03/21/25 13:05 Height 5 ft 6 in Weight 225 lb BMI 36.3 BP 100/65 Blood Pressure Location Lt brachial Pulse 60 Intake Visit Reasons: follow up 1 year med Allergies cinnamon Allergy (Severe, Verified 03/21/25 13:10) Swelling Penicillins Allergy (Mild, Verified 03/21/25 13:10) RASH lisinopril Adverse Reaction (Intermediate, Verified 03/21/25 13:10) Cough cockaroach Allergy (Uncoded 03/21/25 13:10) Unknown HPI HPI follow up 1 year med: Details: He has been doing well and no evidence of infection aorta. He takes preventive Keflex bid He has no rash or diarrhea. PFS Medical History Family history of anesthesia complication Arthritis Vertigo MSSA (methicillin susceptible Staphylococcus aureus) infection Sludge in gallbladder Diabetes HTN (hypertension) Coarctation of aorta Asthma Surgical History History of uvulopalatopharyngoplasty Hx of tonsillectomy Hx of heart surgery Hx of heart surgery Hx of circumcision S/P lobectomy of lung Status post aortic coarctation stent placement Social History Are you a primary child daycare worker to a significant other at home: No Do you presently have visiting nurse or other home services: No Alcohol intake: current Alcohol intake frequency: former alcohol drinker Patient Tobacco Use Status: Former Tobacco user Tobacco use type: Cigarette Cigarette Packs Per Day: 0.5 Years Smoked: 5 Substance Use Type: Marijuana Current occupational status: disabled Current occupation: right hand dominant Physical Exam Vital Signs: Last Vital Signs Pulse 60 03/21/25 13:05 BP 100/65 03/21/25 13:05 BMI result Body Mass Index 36.3 Const General: cooperative Orientation/consciousness: patient oriented x3 HEENT Head: Yes normal to inspection Mouth: Normal oral and palatal mucosa present Eyes General: appearance normal, both eyes and all related structures Pupils: Equal, round and reactive pupils present Resp Effort & Inspection: normal respiratory effort Cardio Rate: regular rate Rhythm: regular rhythm GI Palpation (GI): Soft to palpation and nontender General: Yes no CVA tenderness Back/Spine/Pelvis Back: no CVA tenderness Skin General skin exam: no rashes or lesions noted Neuro General: patient oriented x3 Cranial nerves: Yes CN's II-XII intact bilaterally and Yes Equal, round and reactive pupils present Extrem General: Yes normal to inspection Psych Appearance: grossly normal Assessment & Plan Assessment & Plan (1) MSSA (methicillin susceptible Staphylococcus aureus) infection: Comment: 2019-post aortic stent Code(s): A49.01 - Methicillin susceptible Staphylococcus aureus infection, unspecified site Category: Medical Plan: Lifetime Keflex prophylaxis for aortic stent. Plan See in one year I refilled Keflex scripts Medications: New cephalexin 500 mg PO BID 60 caps 11RF 30 days cephalexin 500 mg PO BID 60 caps 11RF 30 days Coding Level of Care Code Est Pt Level 3 (09448) Diagnoses MSSA (methicillin susceptible Staphylococcus aureus) infection A49.01
--- OUTSIDE RECORDS SUMMARY | 2025-03-21 18:33 | XMS_ITS | Encounter Summary ---
Author Organization [employer] Address [address] [place] [address] 7t [place] [address] Care Team Providers Care Retail Sales Consultant Name Role Phone Celia Torres MD Primary Care Provider Danielle Kaufman OD Unavailable [phone] Larissa Trujillo DDS Unavailable Unavailabl e Obduila Restrepo Unavailable [phone] Dustin Falcon MD Unavailable Belinda Sears MD Unavailable [phone] Dipak Urban MD Unavailable [phone] Hiren Radford MD Unavailable [phone] Kenyatta Cruz MD Primary Care Provider [phone] Reason for Visit * Reason Onset Date Comments triage 05/15/2022 Encounter Details Date Type Department Care Team (Late st Contact Info) Description 05/15/2022 Telephone [facility] MEDICINE [address] [place] [address] Celia Torres MD 505 [place], [place] [phone] triage Social History Tobacco Use Types Packs/Day [...] returned to patient who does not need spanish interpreter/translator. Patient reports that he is having a [...] self and will access emergent care at [facility] now. Reviewed with pt to contact [...] on filedocumented in this encounter Care Teams Retail Sales Consultant Relationship Specialty Start Date End Date Celia Torres MD [address] [place] [address] PCP - General Family Medicine 03/10/12 02/02/25 Kenyatta Cruz MD 505 [place] [address] PCP - General Family Medicine 02/03/25 Shae DanielleSYLVIA [address] [place] [address] Optometry 09/03/18 Larissa Trujillo DDS [address] [place] [address] Resident Dental Ornamental Ironworker 05/23/13 Obdulia Restrepo [address] [facility] [address] [place] [address] Counter Hand 05/27/23 Dustin Falcon MD [address] [place] [address] 203 [place] [address] Orthopaedic Surgery 04/08/23 Belinda Sears MD 575 [facility] 404 [place] [address] Referring Physician Family Medicine 07/23/23 Dipak Urban MD [address] [place] [address] 3rd [place] [address] Surgeon General Surgery 04/17/23 Hiren Radford MD [address] [place] [address] Software Developer Consultant Cardiology 09/03/18 Serjio Christianson MD 3500 [place] [address] Vascular 01/26/24 documented as of this encounter
--- OUTSIDE RECORDS SUMMARY | 2025-03-21 18:33 | XMS_ITS | Encounter Summary ---
Author Organization [employer] Address [address] [place] [address] 7t [place] [address] Care Team Providers Care Plumbing Assembler Installer Name Role Phone Celia Torres MD Primary Care Provider [phone] Daneille Kaufman OD Unavailable [phone] Larissa Trujillo DDS Unavailable Unavailabl e Obdulia Restrepo Unavailable [phone] Dustin Falcon MD Unavailable Belinda Sears MD Unavailable [phone] Dipak Urban MD Unavailable [phone] Hiren Radford MD Unavailable [phone] Kenyatta Cruz MD Primary Care Provider [phone] Encounter Details Date Type Department Care Team (Late st Contact Info) Description 10/14/2022 Orders Only [facility] MEDICINE [address] [place], [place] [phone] Shalonda Srinivasan, PharmD 230 [place], [place] [phone] Social History Tobacco Use Types Packs/Day Years [...] documented as of this encounter Care Teams Plumbing Assembler Installer Relationship Specialty Start Date End Date Celia Torres MD [address] [place] [address] PCP - General Family Medicine 03/10/12 02/02/25 Kenyatta Cruz MD [address] [place] [address] PCP - General Family Medicine 02/03/25 Danielle Kaufman OD 230 [place] [address] Optometry 09/03/18 Larissa Trujillo DDS [address] [place] [address] Resident Dental Licensing Officer 05/23/13 Obdulia Restrepo [address] [place] [address] [address] [place] [address] Tobacco Acreage Measurer 05/27/23 Dustin Falcon MD [address] [place] [address] [address] [place] [address] Orthopaedic Surgery 04/08/23 Belinda Sears MD [address] [place] [address] [address] [place] [address] Referring Physician Family Medicine 07/23/23 Dipak Urban MD [address] [place] [address] Drive 3rd [place] [address] Surgeon General Surgery 04/17/23 Hiren Radford MD [address] [place] [address] Building Construction Contractor Cardiology 09/03/18 Serjio Christianson MD 3500 [place] [address] Vascular 01/26/24 documented as of this encounter
--- OUTSIDE RECORDS SUMMARY | 2025-03-21 18:33 | XMS_ITS | Encounter Summary ---
Author Organization [employer] Address [address] [place] [address] 7t [place] [address] Care Team Providers Care Motor Vehicles Supervisor Name Role Phone Celia Torres MD Primary Care Provider [phone] Danielle Kaufman OD Unavailable [phone] Larissa Trujillo DDS Unavailable Unavailabl e Obdulia Restrepo Unavailable [phone] Dustin Falcon MD Unavailable Belinda Sears MD Unavailable [phone] Dipak Urban MD Unavailable [phone] Hiren Radford MD Unavailable [phone] Kenyatta Cruz MD Primary Care Provider [phone] Reason for Visit * Reason Onset Date Comments Med Refill 11/11/2022 Encounter Details Date Type Department Care Team (Late st Contact Info) Description 11/11/2022 Telephone [facility] MED & PEDS [address] [place], [place] [phone] Celia Torres MD 505 [place] [address] Med Refill Social History Tobacco Use Types [...] (Ultram) 50 MG tablet Please sent to [facility] #[id number] - [place] - [address] [facility] documented in this encounter Plan of Treatment Not on file documented as of this encounter Visit Diagnoses Not on filedocumented in this encounter Additional Health Concerns Assessment Noted Time PHQ-9 Depression Total Score: 1 07/10/19 23 10:12 AM EDT documented as of this encounter Care Teams Motor Vehicles Supervisor Relationship Specialty Start Date End Date Celia Torres MD 230 [place] [address] PCP - General Family Medicine 03/10/12 02/02/25 Kenyatta Cruz MD 505 [place] [address] PCP - General Family Medicine 02/03/25 Danielle Kaufman OD 230 [place] [address] Optometry 09/03/18 Larissa Trujillo DDS 230 [place] [address] Resident Dental Siebel Solution Architect 05/23/13 Obdulia Restrepo [address] [place] [address] [place] [address] Firmware Software Verification Engineer 05/27/23 Dustin Falcon MD [address] [place] [address] [address] [place] [address] Orthopaedic Surgery 04/08/23 Belinda Sears MD [facility] 404 [place] [address] Referring Physician Family Medicine 07/23/23 Dipak Urban MD [address] 3rd [place] [address] Surgeon General Surgery 04/17/23 Hiren Radford MD 596 [place] [address] Art Therapist Cardiology 09/03/18 Serjio Christianson MD 3500 [place] [address] Vascular 01/26/24 documented as of this encounter
--- OUTSIDE RECORDS SUMMARY | 2025-03-21 18:33 | XMS_ITS | Encounter Summary ---
Author Organization [employer] Address [address] [place] [address] 7t [place] [address] Care Team Providers Care Slate Trimmer Name Role Phone Celia Torres MD Primary Care Provider [phone] Danielle Kaufman OD Unavailable [phone] Larissa Trujillo DDS Unavailable Unavailabl e Obdulia Restrepo Unavailable [phone] Dustin Falcon MD Unavailable Belinda Sears MD Unavailable [phone] Dipak Urban MD Unavailable [phone] Hiren Radford MD Unavailable [phone] Kenyatta Cruz MD Primary Care Provider [phone] Encounter Details Date Type Department Care Team (Latest Contact Info) Description 10/24/2020 Abstract [facility] CONVERSIONS Dental, Provider, DDS Social History Tobacco [...] on filedocumented in this encounter Care Teams Slate Trimmer Relationship Specialty Start Date End Date Celia Torres MD [address] [place] [phone] PCP - General Family Medicine 03/10/12 02/02/25 Kenyatta Cruz MD 505 [place] [address] PCP - General Family Medicine 02/03/25 Danielle Kaufman OD 230 [place] [address] Optometry 09/03/18 Larissa Trujillo DDS 230 [place] [address] Resident Dental Picker Feeder 05/23/13 Obdulia Restrepo [address] [place] [address] Dr [address] [place] [address] Stewardesses Teacher 05/27/23 Dustin Falcon MD [address] [place] [address] Dr [address] [place] [address] Orthopaedic Surgery 04/08/23 Belinda Sears MD 575 [facility] 404 [place] [address] Referring Physician Family Medicine 07/23/23 Dipak Urban MD [address] [place] [address] Drive 3rd [place] [address] Surgeon General Surgery 04/17/23 Hiren Radford MD 596 [place] [address] Mop Man Cardiology 09/03/18 Serjio Christianson MD 35[address] [place] [address] Vascular 01/26/24 documented as of this encounter
--- OUTSIDE RECORDS SUMMARY | 2025-03-21 18:33 | XMS_ITS | Clinical Summary ---
Author Organization [employer] Address [address] [place] [address] 7t [place] [address] Care Team Providers Care Research Attorney Name Role Phone Danielle Kaufman OD Unavailable [phone] Larissa Trujillo DDS Unavailable Unavailabl e Obdulia Restrepo Unavailable [phone] Dustin Falcon MD Unavailable Belinda Sears MD Unavailable [phone] Dipak Urban MD Unavailable [phone] Hiren Radford MD Unavailable [phone] Kenyatta Cruz MD Primary Care Provider Allergies Active Allergy [...] EVENING FOR BLOOD PRESSURE 30 tablet 5 5 8:27 AM EST 025 Active cephalexin (Keflex) 500 MG capsule [...] ONE TABLET EVERY MORNING 30 tablet 1 5 8:27 AM EST 12/01/2 025 Active losartan (Cozaar) 100 MG tablet [...] surgery on t he circ sys 09/16/2022 [facility] (current) use of aspirin 09/16/2022 psychology intern (current) use of oral hypoglycemic chasity gs [...] DEPARTMENT Provider, Generic External Data 03/05/[address] [facility] [address] [place], [place] [phone] Celia Torres MD 01/28/[address] [facility] MED[facility]INE [address] [place], [place] [phone] Celia Torres MD lab work request 01/14/[address] [facility] [address] [place], [place] [phone] Lali Croft FNP Benign hypertension from Last [...] 2024 01/23/2024, 07/17/2020, 06/19/2020 Influenza Vaccine (#1) 12/06/2024201 6, 02/12/2015, 02/06/2015 FOBT 02/09/2025 02/10/2024 Dental Oral Exam 02/10/2025 08/09/2024, 02/11/2024 Dental Prophylaxis 02/10/2025 08/09/2024, 02/11/2024 Dental X-Ray: Bitewings 02/11/2025 02/11/2024 Diabetes: Hemoglobin A1C 05/01/202501/29/ 025, 10/13/2024, 07/14/2024, Additional history exists SDOH [...] PM EST Narrative 03/16/2025 3:47 PM EST [address] [address] Ultrasound Report Signed Patient: David Gurrola MR#: [id number] : 1965 Acct:[id number] Age/Sex: 59 / M ADM Date: 03/16/25 Loc: HO.US Attending Dr: Shabnam MCINTYRE Ordering Physician: Shabnam Galarza Date of Service: 03/16/25 Procedure(s): US retroperitoneal comp Accession Number(s): [id number] cc: Shabnam Galarza; Celia Torres MD Reason [...] 03/16/25 1545 DD/ 1444 TD/TT: 03/16/25 1506 Pump And Blower Operator: Procedure Note Donotuseinterpreter, Image - 03/16/2025 [place] [address] Ultrasound Report Signed Patient: David GurrolaMR#: [id number] : 1965Acct:[id number] Age/Sex: 59 / MADM Date: 03/16/25 Loc: HO.US Attending Dr: Shabnam MCINTYRE Ordering Physician: Shabnam Galarza Date of Service: 03/16/25 Procedure(s): US retroperitoneal comp Accession Number(s): [id number] cc: Shabnam Galarza; Celia Torres MD Reason [...] 03/16/25 1545 DD/ 1444 TD/TT: 03/16/25 1506 Pump And Blower Operator: us [facility] External Provider IMG US PROCEDURES Final Result * CT Chest w/ Contrast (03/11/2025 4:47 PM EST) Anatomical Region Laterality Modality Body, Chest Computed Tomogra phy 03/11/2025 4:47 PM EST Narrative 03/11/2025 4:49 PM EST [place] [address] CT Scan Report Signed Patient: David Gurrola MR#: [id number] : 1965 Acct:[id number] Age/Sex: 59 / M ADM Date: 03/11/25 Loc: HO.CT Attending Dr: Obdulia Restrepo COMPENSATION ANALYST Ordering Physician: Obdulia Restrepo NP Date of Service: 03/11/25 Procedure(s): CT chest w IV con Accession Number(s): [id number] cc: Celia Torres MD; Obdulia Restrepo NP Report Number: [id number]: Total DLP = 334.00 mGy-cm Reason for [...] in OV> 03/11/251647 DD/ 46 TD/TT: 03/11/251646 Pump And Blower Operator: Procedure Note Donotuseinterpreter, Image - 03/11/[address] [place] [address] [address] Scan Report Signed Patient: Jesus Gurrola#: [id number] : 1965Acct:[id number] Age/Sex: 59 / MADM Date: 03/11/25 Loc: HO.CT Attending Dr: Obdulia Restrepo COMPENSATION ANALYST Ordering Physician: Obdulia Restrepo NP Date of Service: 03/11/25 Procedure(s): CT chest w IV con Accession Number(s): [id number] cc: Celia Torres MD; Obdulia Restrepo NP Report Number: [id number]: Total DLP = 334.00 mGy-cm Reason for [...] in OV> 03/11/258 DD/ 46 TD/TT: 03/11/251646 Pump And Blower Operator: [facility] External Provider IMG CT PROCEDURES Final Result * Creatinine, Serum (03/11/2025 8:08 AM EST) Creatinine, Serum 0.80 0.5 - 1.4 mg/dL [facility] Estimated Glomerular Filt Rate >60 [facility] Comment:Chronic Kidney Disea se: Estimated GFR < 60 mL/min/1.74j5Hzhqih Kidney Disease: Estimated GFR < 15 mL/min/1.73m2 03/11/2025 8:08 AM EST 03/11/2025 8:08 AM EST Generic External Data Provider LAB BLOOD ORDERAB LES Final Result [facility] [address] [place] [address] [phone] * (ABNORMAL) Hemoglobin A1c (01/29/2025 7:29 AM EDT) Hemoglobin A1c 8.0(H) <6.0 % [facility] Comment:Hemoglobin A1C Refer ence Range Adults: 4.8 - 6.0 % Non diabetic: < 6.0 % Goal: < 7.0 %Additional Action Suggested: > 8.0 %Note: Hemoglobin A1c results are invalid for patients with abnormal amounts of HbF. Blood transfusions may impact the HbA1c concentration in the patient sample. Estimated Average Glucose 183 mg/dL [facility] Comment:eAG = Estimated ave rage glucose which is %A1C expressed asaverage glucose, using the formula of the D6S-TdviblxSizrutw Glucose study (ADAG), Diabetes Care, Vol.31,#8,2007 Blood Venous blood specimen / Unknown 01/29/2025 7:29 AM EDT 01/29/2025 7:29 AM EDT us Celia Torres MD LAB BLOOD ORDERABLES Final Resul t [facility] [address] [place] [address] [phone] * (ABNORMAL) Lipid Panel, Standard (07/22/2024 8:06 AM EDT) Triglycerides 52 <150 mg/dL [facility] Comment:Desirable Triglyceri de: less than 150 mg/dLBorderline High Triglyceride 150-199 mg/dLHigh Triglyceride: 200-499 mg/dLVery High Triglyceride: greater than or equal to 5OO mg/dL Cholesterol 109 <200 mg/dL [facility] Comment:Desirable Cholestero l: less than 200 mg/dLBorderline High Cholesterol: 200-239 mg/dLHigh Cholesterol: greater than 239 mg/dL LDL Cholesterol Calculated 68 <100 mg/dL [facility] Comment:Desirable LDL: less than 100 mg/dLNear Optimal/Above Optimal LDL: 110- 129 mg/dLBorderline High LDL: 130-159 mg/dLHigh LDL: 160-189 mg/dLVery High LDL: greater than or equal to 190 mg/dL HDL Cholesterol 31(L) >40 mg/dL [facility] Comment:Desirable HDL: great er than 40 mg/dL Note: This HDL assay may give artificially low results in patients with liver disease. Blood Venous blood specimen / Unknown 07/22/2024 8:06 AM EDT 07/22/2024 8:06 AM EDT us Celia Torres MD LAB BLOOD ORDERABLES Final Resul t [facility] [address] [place] [phone] * (ABNORMAL) Cologuard?? colon cancer screening (02/10/2024 6:22 AM EST) Cologuard Result Positive( A) Negative 02/17/2024 8:49 PM EST Actual Experience (CLIA #:[id number]) Comment: POSITIVE TEST RESULT. A positive Cologuard [...] (Rachele Tejeda al, N Engl J Med 2014;370(14):4545-2511.) Cologuard may produce a false negative or false positive result (no colorectal cancer or precancerous polyp present at colonoscopy follow up). A negative Cologuard test result does not guarantee the absence of CRC or advanced adenoma (pre-cancer). The current Cologuard screening interval is every 3 years. ([place] [employer] Society and U.S. Multi-Society Task Force). Cologuard performance data in a 10,000 patient pivotal study using colonoscopy as the reference method can be accessed at the following location: www.[employer]/results. Additional description of the Cologuard test process, warnings and precautions can be found at www.[employer].com. Stool specimen (specimen) 02/10/2024 6:22 AM EST 02/11/2024 12:14 PM EST Celia Torres MD LAB MOLECULAR DIAGNOSTICS ORDERA BLES Final Result Performing Organization Address [facility] de Phone Number Actual Experience (CLIA #:[id number]) [address] [place] [address], * (ABNORMAL) ALBUMIN, RANDOM URINE W/CREATININE (04/27/2021 [...] Creatinine, Urine 29 20 - 320 mg/dL [facility] 04/27/2021 9:00 AM EST Celia Torres MD LAB URINE ORDERABLES Final Resul t Performing Organization Address [facility] de Phone Number [facility] [address] [place] [address] from Last 3 Months or Most Recently Relevant to Health Maintenance Insurance [facility] STANDARD MEDICARE DENTAL-[facility] MEDICAID STAND ADULT * Guarantor: David Gurrola Account Type Relation to Patient Date of Phone Billing Address Personal/Family Self [address] [facility] [place] Care Teams Research Attorney Relationship Specialty Start Date End Date Kenyatta Cruz MD 505 [place] [address] PCP - General Family Medicine 02/03/25 Danielle Kaufman OD [address] [place] [address] Optometry 09/03/18 Larissa Trujillo DDS [address] [place] [address] Resident Dental Laboratory Chief 05/23/13 Obdulia Restrepo [address] [facility] [address] [place] [address] Supervisor Feed House 05/27/23 Dustin Falcon MD [address] [place] [address] [address] [place] [address] Orthopaedic Surgery 04/08/23 Belinda Sears MD 575 [facility] 404 [place] [address] Referring Physician Family Medicine 07/23/23 Dipak Urban MD [address] 3rd [place] [address] Surgeon General Surgery 04/17/23 Hiren Radford MD [address] [place] [address] Addiction Treatment Counselor Cardiology 09/03/18 Serjio Christianson MD [address] [place] [address] Vascular 01/26/24
--- OUTSIDE RECORDS SUMMARY | 2025-03-21 18:33 | XMS_ITS | Encounter Summary ---
Author Organization [facility] Address [address] [place] [address] Care Team Providers Care Civil Rights Attorney Name Role Phone aRmon West MD Unavailable Ramon West MD Primary Care Provider Encounter Details Date Type Department Care Team (Late st Contact Info) Description 11/11/2018 Scanned Document [facility] 3 ICU [address] [place] [address] Provider, Generic Social History Tobacco [...] documented as of this encounter Care Teams Civil Rights Attorney Relationship Specialty Start Date End Date Ramon West MD [address] [address] PCP - General Surgery, Cardiac 10/09/22 Ramon West MD [address] [address] Surgery, Cardiac 08/26/22 Hiren Radford [address] [place] [address] Manager Image Cardiovascular Disease 10/02/22 [facility] [address] [place] [address] Primary Care Provider General Medicine 10/02/22 documented as of this encounter
--- OUTSIDE RECORDS SUMMARY | 2025-03-21 18:33 | XMS_ITS | Encounter Summary ---
Author Organization [employer] Address [address] [place] [address] [address] [place] [address] Care Team Providers Care Spinning Room Worker Name Role Phone Celia Torres MD Primary Care Provider [phone] Danielle Kaufman OD Unavailable [phone] Larissa Trujillo DDS Unavailable Unavailabl e Obdulia Restrepo Unavailable [phone] Dustin Falcon MD Unavailable Belinda Sears MD Unavailable [phone] Dipak Urban MD Unavailable [phone] Hiren Radford MD Unavailable [phone] Kenyatta Cruz MD Primary Care Provider [phone] Encounter Details Date Type Department Care Team (Late st Contact Info) Description 04/18/2022 Orders Only [facility] [address] [place], [place] [phone] Sherice Lozano LPN Social History Tobacco Use [...] EDT) Ova and Parasite Trichrome SEE NOTE [facility] Comment: OVA AND PARASITES, CONC AND PERM SMEAR Micro Number: [id number] Test Status: Final Specimen Source: Stool Specimen [...] infection. For additional information, please refer to https://education.RedKLEVER/faq/CCW466 (This link is being provided for informational/ educational purposes only.)THIS TEST WAS PERFORMED AT:[facility] [facility] [address] [id number] JUDSON,MD 08/24/2022 7:59 PM EDT 08/24/2022 8:24 PM EDT us [facility] Exter nal Provider LAB MICROBIOLOGY - GENERAL ORDERABLES Final Result [facility] [address] [place] [phone] * Acid-Fast Smear (08/24/2022 6:10 PM EDT) 08/24/2022 6:10 PM EDT 08/24/2022 6:24 PM EDT Comment:Sputum Narrative [facility] - 10/23/2022 2:15 PM EDT Acid-Fast Smear Acid-Fast Smear Acid-Fast Smear No acid-fast bacilli seen. Testing performed at: [address] [address] Acid-Fast Culture null Acid-Fast Culture null Acid-Fast Culture null Acid-Fast Culture null Acid-Fast Culture null Specimen Source: Sputum [facility] Exter nal Provider LAB MICROBIOLOGY - GENERAL ORDERABLES Final Result Performing Organization Address City/[facility]/ZIP Co de Phone Number [facility] [address] [place] [phone] * Type and screen (08/24/2022 4:17 PM EDT) Blood Type OP [facility] Antibody Screen NEGATIVE [facility] 08/24/2022 4:17 PM EDT 08/24/2022 4:27 PM EDT [facility] External Provider LAB BLO OD BANK TEST ORDERABLES Final Result Performing Organization Address [facility] Co de Phone Number [facility] [address] [place] [phone] * (ABNORMAL) Prothrombin Time-INR (08/24/2022 4:17 PM EDT) Prothrombin Time 15.0(H) 10.0 - 13.1 SEC [facility] INTERNATIONAL NORM RATIO 1.3(H) 0.9 - 1.1 [facility] Comment:INTERNATIONAL NORMAL IZED RATIO (INR) [...] 4:17 PM EDT 08/24/2022 4:25 PM EDT [facility] External Provider LAB BLO OD ORDERABLES Final Result Performing Organization Address [facility]/ZIP Co de Phone Number [facility] [address] [place] [address] [phone] * Gram stain (08/24/2022 2:43 PM EDT) 08/24/2022 2:43 PM EDT 08/24/2022 2:45 PM EDT Comment:Sputum Narrative [facility] - 08/27/2022 9:28 AM EDT [...] Staph Aureus: Vancomycin 1(S) Specimen Source: Sputum [facility] Exter nal Provider LAB MICROBIOLOGY - GENERAL ORDERABLES Final Result Performing Organization Address [facility]/ZIP Co de Phone Number [facility] [address] [place] [address] [phone] * Gastrointestinal panel (08/24/2022 12:11 PM EDT) Campylobacter Not Detected Not Detect. [facility] Plesiomonas shigelloides Not Detected Not Detect. [facility] Salmonella Not Detected Not Detect. [facility] Vibrio Not Detected Not Detect. [facility] Vibrio cholerae Not Detected Not Detect. [facility] YERSINIA ENTEROCOLITICA Not Detected Not Detect. [facility] Enteroaggregative E. coli (EAEC) Not Detected Not Detect. [facility] Enteropathogenic E. coli (EPEC) Not Detected Not Detect. [facility] Enterotoxigenic E. coli (ETEC) lt/st Not Detected Not Detect. [facility] Shiga-like toxin-producing E. coli (STEC) stx1/stx2 Not Detected Not Detect. [facility] E coli O157 Not applicable Not Detect. [facility] Comment:E. coli containing t he O157 antigen are a subset ofShiga-like toxin- producing E. coli (STEC). Shigella/Enteroinvasive E. coli (EIEC) Not Detected Not Detect. [facility] Cryptosporidium Not Detected Not Detect. [facility] Cyclospora cayetanensis Not Detected Not Detect. [facility] Entamoeba histolytica Not Detected Not Detect. [facility] Giardia lamblia Not Detected Not Detect. [facility] Adenovirus F 40/41 Not Detected Not Detect. [facility] Astrovirus Not Detected Not Detect. [facility] Norovirus GI/GII Not Detected Not Detect. [facility] Rotavirus A Not Detected Not Detect. [facility] Sapovirus Not Detected Not Detect. [facility] Comment: All results must be [...] assay is performed by Multiplexed PCR, utilizing [employer] Film Array. 08/24/2022 12:1 1 PM EDT 08/24/2022 12:15 PM EDT [facility] Exter nal Provider LAB MICROBIOLOGY - GENERAL ORDERABLES Final Result Performing Organization Address [facility] Co de Phone Number [facility] [address] [place] [phone] * CDiff Gene PCR (08/24/2022 12:11 PM EDT) CDiff Gene PCR NEGATIVE Negative [facility] Comment:If C. difficile stro ngly suspected despite one negativetest, a second test may be sent vs. empiric treatment forC. difficile infection. 08/24/2022 12:1 1 PM EDT 08/24/2022 12:15 PM EDT [facility] Exter nal Provider LAB BODY FLUIDS AND STOOLS ORDERABLES Final Result Performing Organization Address [facility] Co de Phone Number [facility] [address] [place] [phone] * Blood Culture (Second) (08/24/2022 11:14 AM EDT) 08/24/2022 11:1 4 AM EDT 08/24/2022 11:20 AM EDT Comment:Blood Narrative [facility] - 08/26/2022 8:15 AM EDT [...] Culture (Second) Gram stain reviewed by a Finisher [employer] Dies Staphylococcus aureus [facility] ORG #1: Susceptibility testing of same organism(s) from Refer [facility] similar site will not be repeated within 4 days. Results of Blood Culture gram stain called to and read back by EMILEE at 2113 on 08/24/22 by RADHA. Specimen Source: Blood us [facility] Exter nal Provider LAB MICROBIOLOGY - GENERAL ORDERABLES Final Result Performing Organization Address City/State/[facility] Co de Phone Number [facility] [address] [place] [phone] * Blood Culture (First) (08/24/2022 11:13 AM EDT) 08/24/2022 11:1 3 AM EDT 08/24/2022 11:17 AM EDT Comment:Blood Narrative [facility] - 08/26/2022 8:14 AM EDT [...] Culture (First) Gram stain reviewed by a Finisher [employer] Staphylococcus aureus Results of Blood Culture gram stain called to and read back by EMILEE at 2117 on 08/24/22 by RADHA. Staphylococcus aureus: Clindamycin <=0.25(S) Staphylococcus aureus: Erythromycin <=0.25(S) Staphylococcus aureus: Levofloxacin <=0.12(S) Staphylococcus aureus: Oxacillin 0.5(S) Staphylococcus aureus: Penicillin-G >=0.5(R) Staphylococcus aureus: Tetracycline <=1(S) Staphylococcus aureus: Trimethoprim/Sulfamethoxazole <=10(S) Specimen Source: Blood [facility] Exter nal Provider LAB MICROBIOLOGY - GENERAL ORDERABLES Final Result Performing Organization Address [facility] Co de Phone Number [facility] [address] [place] [phone] * Magnesium (08/24/2022 11:13 AM EDT) Pathologist [facility] Magnesium 1.6 1.6 - 2.6 mg/dL [facility] 08/24/2022 11:1 3 AM EDT 08/24/2022 11:17 AM EDT [facility] External Provider LAB BLO OD ORDERABLES Final Result Performing Organization Address [facility] Phone Number [facility] [address] [place] [phone] * Lactic Acid (08/24/2022 11:13 AM EDT) [facility] Lactic Acid 1.8 0.5 - 2.0 mmol/L [facility] 08/24/2022 11:1 3 AM EDT 08/24/2022 11:17 AM EDT [facility] External Provider LAB BLO OD ORDERABLES Final Result Performing Organization Address [facility] de Phone Number [facility] [address] [place] [phone] * SARS-CoV-2 RNA, Influenza A/B, and RSV RNA, Ql NAAT (08/24/2022 10:43 AM EDT) [facility] Influenza A PCR NEGATIVE Negative [facility] Influenza B PCR NEGATIVE Negative [facility] Resp Syncy Virus RNA Qual PCR NEGATIVE Negative [facility] SARS COV2 PCR NEGATIVE Negative [facility] Comment:All test results mus t [...] use by authorized laboratories.Testing performed on the [employer] GeneXpert utilizingreal-time RT-PCR.All SARS CoV2 and positive influenza A/B results arereported to [facility]. 08/24/2022 10:4 3 AM EDT 08/24/2022 10:46 AM EDT [facility] Exter nal Provider LAB MICROBIOLOGY - GENERAL ORDERABLES Final Result Performing Organization Address [facility] Co de Phone Number [facility] [address] [place] [address] [phone] * Lipase (08/24/2022 10:33 AM EDT) Pathologist [facility] Lipase 26 8 - 78 U/L [facility] 08/24/2022 10:3 3 AM EDT 08/24/2022 10:38 AM EDT [facility] External Provider LAB BLO OD ORDERABLES Final Result Performing Organization Address [facility] de Phone Number [facility] [address] [place] [address] [phone] * (ABNORMAL) Comprehensive Metabolic Panel (08/24/2022 10:33 AM EDT) Sodium 138 135 - 145 mmol/L [facility] Potassium 3.6 3.3 - 5.1 mmol/L [facility] Chloride 104 96 - 108 mmol/L [facility] Carbon Dioxide 23 22 - 29 mmol/L [facility] Anion Gap 15 12 - 20 [facility] Urea Nitrogen (BUN) 13 9 - 16 mg/dL [facility] Creatinine, Serum 1.33 0.5 - 1.4 mg/dL [facility] Creatinine Clr Calc Pharmacy 67.2 [facility] Comment:eGFR (calculated fro m the MDRD study equation) and eCrCl(calculated from the Cockcroft-Gault equation) are based ondifferent parameters and may not yield comparable results.If eCrCl result is absurd, please check patient'sheight/weight. Estimated Glomerular Filt Rate 55 [facility] Comment:NOTE: For -Am erican individuals, multiply the result by 1.210.Chronic Kidney Disease: Estimated GFR < 60 mL/min/1.19h9Nzsyiz Kidney Disease: Estimated GFR < 15 mL/min/1.73m2 Glucose 264(H) 60 - 115 mg/dL [facility] Calcium 9.5 8.4 - 10.2 mg/dL [facility] Bilirubin, Total 0.8 0.0 - 1.0 mg/dL [facility] Aspartate Amino Transferase 32 5 - 37 U/L [facility] Alanine Aminotransferase 27 0 - 40 U/L [facility] Total Protein 6.5 6.5 - 8.0 g/dL [facility] Albumin Level 3.9 3.5 - 5.0 g/dL [facility] Alkaline Phosphatase 68 39 - 117 U/L [facility] 08/24/2022 10:3 3 AM EDT 08/24/2022 10:38 AM EDT us [facility] External Provider LAB BLO OD ORDERABLES Final Result [facility] [address] [place] [address] [phone] * (ABNORMAL) Complete Blood Count Manual Diff (08/24/2022 10:33 AM EDT) White Blood Count 9.4 4.8 - 10.8 X10*3/uL [facility] Red Blood Count 5.40 4.60 - 5.80 X10*6/uL [facility] Hemoglobin 15.7 14.0 - 18.0 g/dl [facility] Hematocrit 46.5 42.0 - 52.0 % [facility] Mean Corpuscular Volume 86.1 80.0 - 98.0 fL [facility] Mean Corpuscular Hemoglobin 29.1 27.0 - 33.0 pg [facility] Mean Corpuscular HGB Conc 33.8 31.0 - 36.0 g/dl [facility] Red Cell Distribution Width 12.7 11.0 - 16.0 % [facility] Platelet Count 130(L) 160 - 400 X10*3/uL [facility] Mean Platelet Volume 11.2 9.4 - 12.4 fL [facility] NRBC Pct Auto 0.0 0.0 - 0.2 /100WBC [facility] NRBC Abs Auto 0.000 0.0 - 0.012 X10*3/uL [facility] Neutrophils % Manual 57 45 - 73 % [facility] Band Neutrophils Percent 30(H) 3 - 5 % [facility] Comment:Results of BANDS ousmane led to ILENE on 08/24/22at 1115 by MARLON. Lymphocytes Percent Manual 7(L) 20 - 40 % [facility] Monocytes Percent Manual 6 2 - 11 % [facility] NEUTROPHILS ABSOLUTE MANUAL 8.2 2.0 - 8.3 X10*3/uL [facility] LYMPHOCYTES ABSOLUTE MANUAL 0.7(L) 1.2 - 4.9 X10*3/uL [facility] MONOCYTES ABSOLUTE MANUAL 0.6 0.1 - 1.2 X10*3/uL [facility] Platelet Estimate DECREASED NORMAL [facility] Large Platelet PRESENT [facility] Platelet Morphology Comment NOTED [facility] RBC Morphology NORMAL [facility] Toxic Vacuolation PRESENT [facility] Dohle Bodies PRESENT [facility] 08/24/2022 10:3 3 AM EDT 08/24/2022 10:38 AM EDT [facility] External Provider LAB BLO OD ORDERABLES Final Result Performing Organization Address [facility] de Phone Number [facility] [address] [place] [address] [phone] * HIGH SENSITIVITY TROPONIN I (05/15/2022 12:01 PM EST) Pathologist [facility] TROPONIN I HIGH SENSITIVITY 3.5 <3.5 - 35.0 ng/L [facility] Comment:The Sebastian high sens itivity Troponin-I results should beused in conjunction with other diagnostic information suchas ECG, clinical observations and information, and patientsymptoms to aid in the diagnosis of ME. 05/15/2022 12:0 1 PM EST 05/15/2022 12:04 PM EST [facility] External Provider LAB BLO OD ORDERABLES Final Result Performing Organization Address [facility] de Phone Number [facility] [address] [place] [phone] * COVID-19 ID NOW (SEBASTIAN) (05/15/2022 12:01 PM EST) Pathologist [facility] IDNOW SERIAL# [id number] [facility] COVID-19 TEST Negative Negative [facility] COVID-19 NOTE See Note [facility] Comment: Results are for the identification of SARS-CoV2 RNA. TheSARS-CoV2 RNA is generally detectable in respiratory samplesduring the acute phase of infection. Positive results areindicative of the presence of SARS-CoV-2 RNA; clinicalcorrelation with patient history and other diagnosticinformation is necessary to determine patient infectionstatus. Positive results do not rule out bacterial infectionor co- infection with other viruses.Testing facilities within the [facility] and [facility] are required to report all [...] use by authorized laboratories.Testing performed on the [employer] ID NOW utilizing NAAT. 05/15/2022 12:0 1 PM EST 05/15/2022 12:04 PM EST [facility] Exter nal Provider LAB MOLECULAR DIAGNOSTICS ORDERABLES Final Result Performing Organization Address [facility]/ZIP Co de Phone Number [facility] [address] [place] [phone] * Magnesium (05/15/2022 12:01 PM EST) Pathologist [facility] Magnesium 2.0 1.6 - 2.6 mg/dL [facility] 05/15/2022 12:0 1 PM EST 05/15/2022 12:04 PM EST [facility] External Provider LAB BLO OD ORDERABLES Final Result Performing Organization Address [facility] Co de Phone Number [facility] [address] [place] [address] [phone] * (ABNORMAL) Basic Metabolic Panel (05/15/2022 12:01 PM EST) Sodium 143 135 - 145 mmol/L [facility] Potassium 4.5 3.3 - 5.1 mmol/L [facility] Chloride 103 96 - 108 mmol/L [facility] Carbon Dioxide 27 22 - 29 mmol/L [facility] Anion Gap 18 12 - 20 [facility] Urea Nitrogen (BUN) 14 9 - 16 mg/dL [facility] Creatinine, Serum 0.90 0.5 - 1.4 mg/dL [facility] Creatinine Clr Calc Pharmacy 104.5 [facility] Comment:eGFR (calculated fro m the MDRD study equation) and eCrCl(calculated from the Cockcroft-Gault equation) are based ondifferent parameters and may not yield comparable results.If eCrCl result is absurd, please check patient'sheight/weight. Estimated Glomerular Filt Rate >60 [facility] Comment:NOTE: For -Am erican individuals, multiply the result by 1.210.Chronic Kidney Disease: Estimated GFR < 60 mL/min/1.22g1Pvnvxw Kidney Disease: Estimated GFR < 15 mL/min/1.73m2 Glucose 183(H) 60 - 115 mg/dL [facility] Calcium 9.8 8.4 - 10.2 mg/dL [facility] 05/15/2022 12:0 1 PM EST 05/15/2022 12:04 PM EST [facility] External Provider LAB BLO OD ORDERABLES Final Result [facility] [address] [place] [phone] * (ABNORMAL) Hepatic Function Panel (05/15/2022 12:01 PM EST) Bilirubin, Total 0.5 0.0 - 1.0 mg/dL [facility] Bilirubin, Direct <0.2 0.0 - 0.5 mg/dL [facility] Aspartate Amino Transferase 50(H) 5 - 37 U/L [facility] Alanine Aminotransferase 59(H) 0 - 40 U/L [facility] Total Protein 6.9 6.5 - 8.0 g/dL [facility] Albumin Level 4.4 3.5 - 5.0 g/dL [facility] Alkaline Phosphatase 109 39 - 117 U/L [facility] 05/15/2022 12:0 1 PM EST 05/15/2022 12:04 PM EST [facility] External Provider LAB BLO OD ORDERABLES Final Result [facility] [address] [place], [place] [phone] * (ABNORMAL) CBC auto differential (05/15/2022 12:01 PM EST) White Blood Count 8.0 4.8 - 10.8 X10*3/uL [facility] Red Blood Count 5.59 4.60 - 5.80 X10*6/uL [facility] Hemoglobin 16.2 14.0 - 18.0 g/dl [facility] Hematocrit 48.8 42.0 - 52.0 % [facility] Mean Corpuscular Volume 87.3 80.0 - 98.0 fL [facility] Mean Corpuscular Hemoglobin 29.0 27.0 - 33.0 pg [facility] Mean Corpuscular HGB Conc 33.2 31.0 - 36.0 g/dl [facility] Red Cell Distribution Width 13.0 11.0 - 16.0 % [facility] Platelet Count 202 160 - 400 X10*3/uL [facility] Mean Platelet Volume 11.1 9.4 - 12.4 fL [facility] Neutrophils Percent Auto 68.0 45 - 73 % [facility] Imm Gran Pct Auto 0.6(H) 0.0 - 0.4 % [facility] Lymphocytes Percent Auto 23.6 20 - 40 % [facility] Monocytes Percent Auto 6.5 2 - 11 % [facility] Eosinophils Percent Auto 1.0 0 - 4 % [facility] Basophils Percent Auto 0.3 0 - 2 % [facility] NRBC Pct Auto 0.0 0.0 - 0.2 /100WBC [facility] Neutrophils Absolute Auto 5.4 2.0 - 8.3 x10*3/uL [facility] Imm Gran Abs Auto 0.05(H) 0.00 - 0.03 X10*3/uL [facility] Lymphocytes Absolute Auto 1.9 1.2 - 4.9 X10*3/uL [facility] Monocytes Absolute Auto 0.5 0.1 - 1.2 X10*3/uL [facility] Eosinophils Absolute Auto 0.1 0.0 - 0.4 X10*3/uL [facility] Basophils Absolute Auto 0.0 0.0 - 0.2 X10*3/uL [facility] NRBC Abs Auto 0.000 0.0 - 0.012 X10*3/uL [facility] 05/15/2022 12:0 1 PM EST 05/15/2022 12:04 PM EST us [facility] External Provider LAB BLO OD ORDERABLES Final Result Performing Organization Address City/State/[facility] Co de Phone Number [facility] [address] [place] [phone] documented in this encounter Visit Diagnoses Not on filedocumented in this encounter Care Teams Spinning Room Worker Relationship Specialty Start Date End Date Celia Torres MD [address] [place] [address] PCP - General Family Medicine 03/10/12 02/02/25 Kenyatta Cruz MD [address] [place] [phone] PCP - General Family Medicine 02/03/25 Danielle Kaufman OD [address] [place] [phone] Optometry 09/03/18 Larissa Trujillo DDS [address] [place] [address] Resident Dental Tower Air Traffic Control Specialist 05/23/13 Obdulia Restrepo [address] [place] [address] [address] [place] [address] Licensed Pesticide Applicator 05/27/23 Dustin Falcon MD [address] [place] [address] [address] [place] [address] Orthopaedic Surgery 04/08/23 Belinda Sears MD [address] [facility] [address] [place] [address] Referring Physician Family Medicine 07/23/23 Dipak Urban MD [address] 3rd [place] [address] Surgeon General Surgery 04/17/23 Hiren Radford MD [address] [place] [address] Lay Out Worker Cardiology 09/03/18 Serjio Christianson MD [address] [place] [address] Vascular 01/26/24 documented as of this encounter
--- OUTSIDE RECORDS SUMMARY | 2025-03-21 18:34 | XMS_ITS | Encounter Summary ---
Author Organization [employer] Address [address] [facility] 7t [place] [address] Care Team Providers Care Laboratory Helper Name Role Phone Celia Torres MD Primary Care Provider [phone] Danielle Kaufman OD Unavailable [phone] Larissa Trujillo DDS Unavailable Unavailabl e Obdulia Restrepo Unavailable [phone] Dustin Falcon MD Unavailable Belinda Sears MD Unavailable [phone] Dipak Urban MD Unavailable [phone] Hiren Radford MD Unavailable [phone] Kenyatta Cruz MD Primary Care Provider [phone] Reason for Visit * Reason Comments Med Refill Encounter Details Date Type Department Care Team (Late st Contact Info) Description 02/10/2023 Refill [facility] MED & PEDS [address] [place], [place] [id number] Celia Torres MD [address] [place], [place] [id number] Chronic pain syndrome (Primary Dx) Social History [...] documented as of this encounter Care Teams Laboratory Helper Relationship Specialty Start Date End Date Celia Torres MD [address] [place] [address] PCP - General Family Medicine 03/10/12 02/02/25 Kenyatta Cruz MD [address] [place] [address] PCP - General Family Medicine 02/03/25 Danielle Kaufman OD [address] [place] [address] Optometry 09/03/18 Larissa Trujillo DDS [address] [place] [address] Resident Dental Wetlands Technician 05/23/[address] [facility] [address] [place] [address] Peoplesoft Fscm Developer 05/27/23 Dustin Falcon MD [address] [place] [address] [address] [place] [address] Orthopaedic Surgery 04/08/23 Belinda Sears MD [address] [facility] [address] [place] [address] Referring Physician Family Medicine 07/23/23 Dipak Urban MD [address] [place] [address] 3rd [place] [address] Surgeon General Surgery 04/17/23 Hiren Radford MD [address] [place] [address] Driver Education Instructor Cardiology 09/03/18 Serjio Christianson MD [address] [place] [address] Vascular 01/26/24 documented as of this encounter
--- OUTSIDE RECORDS SUMMARY | 2025-03-21 18:34 | XMS_ITS | Encounter Summary ---
Author Organization [employer] Address [address] [facility] 7t [place] [address] Care Team Providers Care Ham Marker Name Role Phone Celia Torres MD Primary Care Provider [phone] Danielle Kaufman OD Unavailable Larissa Trujillo DDS Unavailable Unavailabl e Obdulia Restrepo Unavailable [phone] Dustin Falcon MD Unavailable Belinda Sears MD Unavailable [phone] Dipak Urban MD Unavailable [phone] Hiren Radford MD Unavailable [phone] Kenyatta Cruz MD Primary Care Provider [phone] Reason for Visit * Reason Onset Date Comments Med Refill 02/07/2023 Encounter Details Date Type Department Care Team (Late st Contact Info) Description 02/07/2023 Refill [facility] MED & PEDS [address] [place], [place] [phone] Celia Torres MD [address] [place] [address] Social History Tobacco Use Types Packs/Day Years [...] 3:59 PM EDT TC to pt. Initial CRIME LAB TECHNICIAN [place] scheduled for 04/08/22 @ 2:30pm. [...] documented as of this encounter Care Teams Ham Marker Relationship Specialty Start Date End Date Celia Torres MD [address] [place] [address] PCP - General Family Medicine 03/10/12 02/02/25 Kenyatta Cruz MD [address] [place] [address] PCP - General Family Medicine 02/03/25 Danielle Kaufman OD [address] [place] [address] Optometry 09/03/18 Larissa Trujillo DDS [address] [place] [address] Resident Dental Technical Lead 05/23/13 Obdulia Restrepo [address] [place] [address] [address] [place] [address] Acid Conditioner 05/27/23 Dustin Falcon MD [address] [place] [address] [address] [place] [address] Orthopaedic Surgery 04/08/23 Belinda Sears MD 575 [facility] [address] [place] [address] Referring Physician Family Medicine 07/23/23 Dipak Urban MD [address] [place] [address] Drive 3rd [place] [address] Surgeon General Surgery 04/17/23 Hiren Radford MD [address] [place] [address] School Superintendent Cardiology 09/03/18 Serjio Christianson MD [address] [place] [address] Vascular 01/26/24 documented as of this encounter
--- OUTSIDE RECORDS SUMMARY | 2025-03-21 18:34 | XMS_ITS | Encounter Summary ---
Author Organization [employer] Address [address] [place] [address] 7t [place] [address] Care Team Providers Care Certified Detention Deputy Name Role Phone Celia Torres MD Primary Care Provider [phone] Danielle Kaufman OD Unavailable [phone] Larissa Trujillo DDS Unavailable Unavailabl e Obdulia Restrepo Unavailable [phone] Dustin Falcon MD Unavailable Belinda Sears MD Unavailable [phone] Dipak Urban MD Unavailable [phone] Hiren Radford MD Unavailable [phone] Kenyatta Cruz MD Primary Care Provider [phone] Reason for Visit * Reason Comments Med Refill Encounter Details Date Type Department Care Team (Late st Contact Info) Description 11/15/2022 Refill [facility] CH[facility] MED & PEDS [address] [place], [place] [phone] Celia Torres MD [address] [place] [address] S/P aortic bifurcation bypass graft Social History [...] as of this encounter Care Teams Certified Detention Deputy Relationship Specialty Start Date End Date Celia Torres MD [address] [place] [address] PCP - General Family Medicine 03/10/12 02/02/25 Kenyatta Cruz MD [address] [place] [address] PCP - General Family Medicine 02/03/25 Danielle Kaufman OD [address] [place] [address] Optometry 09/03/18 Larissa Trujillo DDS [address] [place] [address] Resident Dental Ceo & Board Director 05/23/13 Obdulia Restrepo [address] [place] [address] Dr [address] [place] [address] Export Freight Clerk 05/27/23 Dustin Falcon MD [address] [place] [address] Dr [address] [place] [address] Orthopaedic Surgery 04/08/23 Belinda Sears MD [address] [facility] [address] [place] [address] Referring Physician Family Medicine 07/23/23 Dipak Urban MD [address] [place] [address] 3rd [place] [address] Surgeon General Surgery 04/17/23 Hiren Radford MD [address] [place] [address] Cooky Machine Operator Cardiology 09/03/18 Serjio Christianson MD [address] [place] [address] Vascular 01/26/24 documented as of this encounter
--- OUTSIDE RECORDS SUMMARY | 2025-03-21 18:35 | XMS_ITS | Clinical Summary ---
Author Organization [facility] Address [address] [place] [address] Care Team Providers Care Video Production Specialist Name Role Phone Ramon West MD [...] place to sleep or slept in a longterm (including now)? No 08/26/2022 Sex and Gender [...] this topic Medical Devices Implanted Type Area Roll Cutter Device Identifier Shelf Expiration Date Model / Serial / Lot [id number] Graft Cv Glwv 10mm 30cm Abd Thrx Hydrolyzable Geltn Poly Wvn - [id number] Implanted:Qty: 1 on 08/26/2022 by Ramon eWst MD at [facility] Graft N/A: Aorta [employer] [id number] 05/07/2025 [id number] / [id number] / [id number] Graft Vasc Glwv Vascutek 16mm 30cm Thor Abdominal Twl Wvn - [id number] Implanted:Qty: 1 on 08/27/2022 by Ramon West MD at [facility] Graft N/A: Aorta [employer] 10/05/2023 [id number] / [id number] / [id number] Patch Vasc [id number] Xenosure Bvn Pericard Sterl Disp - [id number] Implanted:Qty: 1 on 08/26/2022 by Ramon West MD at [facility] Tissue N/A: Aorta [employer] [id number] 03/04/2028 [id number] / [id number] / [id number] Description:Patch type, size , and expiration date [...] 9.0(H) <5.7 % 08/25/2022 3:47 AM EDT [facility] Comment: A1c% Interpretation 5.7 - 6.0 Increase risk of diabetes 6.1 - 6.4 Higher risk of diabetes > or = 6.5 Consistent with diabetes Diabetes Care, 33(Supp 1):S1-S61, 2010 Estimated Average Glucose 212 mg/dL 08/25/2022 3:47 AM EDT [facility] Blood specimen / Unknown 08/24/2022 11:29 PM EDT 08/24/2022 11:39 PM EDT us Ritesh Edwards MD LAB BLOOD ORDERABLES Final Result [facility] See Below [address] [address] from Last 3 Months or Most Recently Relevant to Health Maintenance Insurance [facility] MEDICARE PART A & B MEDICARE PART A & B [facility] Advance Directives Documents on File Type Date Recorded Patient Controller Instructor Expl anation Advance Directive-Scan 10/07/2022 labs Advance [...] Child, Parent, Adult Sibling, Grandparent) Care Teams Video Production Specialist Relationship Specialty Start Date End Date Ramon West MD [address] [address] PCP - General Surgery, Cardiac 10/09/22 Ramon Wset MD [address] [address] Surgery, Cardiac 08/26/22 Hiren Radford [address] [place] [address] Facility Specialist Cardiovascular Disease 10/02/22 [facility] [address] [place] [address] Primary Care Provider General Medicine 10/02/22
== END 2025-03-21 13:17 | disposition home or self-care (01) ==
LOC: HO.HID 12:51
PROVIDERS: PCP Student in an Organized Health Care Education/Training Program; Visit Provider Internal Medicine
DX: A49.01 Methicillin susceptible Staphylococcus aureus infection, unspecified site (principal)
CPT/HCPCS: 99213

== ENCOUNTER → 2025-03-21 12:51 | Outpatient (BNVA) | payer MEDICARE, MEDICAID, SELFPAY | PROVIDERS: PCP Student in an Organized Health Care Education/Training Program; Visit Provider Internal Medicine | DX: Z86.14 Personal history of Methicillin resistant Staphylococcus aureus infection (principal); Z79.2 Long term (current) use of antibiotics | CPT/HCPCS: 99212 ==

== ENCOUNTER 2025-04-04 12:53 | Day surgery (SDC) | payer MEDICARE, MEDICAID, SELFPAY ==
--- NOTE | 2025-04-01 13:54 | HO.ANESPROP2 ---
HPI - Anesthesia Eval Consult details Narrative: 59 yr old male for right ?Carpal Tunnel Release PMFSH Active Problems Active Problems: All Active Problems (Updated 01/31/25 @ 16:27 by SARA Del Rio) Bilateral carpal tunnel syndrome (Acute) Sensation of pressure in bladder area (Acute) Patellar tendinitis, right knee (Acute) Erectile dysfunction (Acute) Chronic constipation (Acute) Family hx of colorectal cancer (Acute) Positive colorectal cancer screening using Cologuard test (Acute) Pre-procedural laboratory examination (Acute) Environmental allergies (Acute) Restrictive ventilatory defect (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 (Acute) Chronic cough (Acute) Left shoulder pain (Acute) Coarctation of aorta (Acute) MSSA (methicillin susceptible Staphylococcus aureus) infection (Acute) Asthma (Acute) Sludge in gallbladder (Acute) Past Medical History Medical History Family history of anesthesia complication Arthritis Vertigo MSSA (methicillin susceptible Staphylococcus aureus) infection Sludge in gallbladder Diabetes HTN (hypertension) Coarctation of aorta Asthma Family History Family history of problems with anesthesia: No Surgical History Surgical History History of uvulopalatopharyngoplasty Hx of tonsillectomy Hx of heart surgery Hx of heart surgery Hx of circumcision S/P lobectomy of lung Status post aortic coarctation stent placement Social History Social History Are you a primary career technical supervisor to a significant other at home: No Do you presently have visiting nurse or other home services: No Alcohol intake: current Alcohol intake frequency: former alcohol drinker Patient Tobacco Use Status: Former Tobacco user Tobacco use type: Cigarette Cigarette Packs Per Day: 0.5 Years Smoked: 5 Substance Use Type: Marijuana Current occupational status: disabled Current occupation: right hand dominant Meds Allergies Allergy/AdvReac Type Severity Reaction Status Date / Time cinnamon Allergy Severe Swelling Verified 03/21/25 13:10 Penicillins Allergy Mild RASH Verified 03/21/25 13:10 lisinopril AdvReac Intermediate Cough Verified 03/21/25 13:10 cockaroach Allergy Unknown Uncoded 03/21/25 13:10 Home Medications ?Medication ?Instructions ?Recorded ?Confirmed ?Last Taken ?Type amlodipine 10 mg tablet 10 mg PO QAM blood pressure 08/24/22 11/30/24 Unknown History aspirin 81 mg tablet,delayed 81 mg PO QAM 08/24/22 11/30/24 09/23/24 History release cyanocobalamin (vitamin B-12) 1,000 mcg PO QAM 08/24/22 11/30/24 Unknown History 1,000 mcg tablet rosuvastatin 10 mg tablet 10 mg PO QPM cholesterol 08/24/22 11/30/24 Unknown History losartan 100 mg tablet 100 mg PO DAILY 05/27/23 11/30/24 Unknown History empagliflozin 10 mg tablet 10 mg PO QAM 07/23/23 11/30/24 09/23/24 History (Jardiance) linagliptin 5 mg tablet (Tradjenta) 5 mg PO QAM 07/23/23 11/30/24 09/23/24 History hydralazine 25 mg tablet 25 mg PO 10/11/24 11/30/24 Unknown History metoprolol succinate 200 mg 100 mg PO BID 01/19/25 Unknown History tablet,extended release 24 hr Assessment and Plan Final Anesthetic Review Family History of Problems with Anesthesia: No
[2025-04-04 13:06] VITALS: BP 95/63; PULSE 61; RESP 16; TEMP 36.2; O2SAT 97
[2025-04-04 13:08] VITALS: BMI 35.5
--- NOTE | 2025-04-04 14:36 | MHC.SHP ---
Pre-Procedural Eval Section A - 24 Hr Update-Section A only Date of Service: 04/04/25 The patient is an INPATIENT: No Changes since office visit: No Cold of Flu in the past 2 weeks, No New Medical Problems, No Changes in Medication and No Patient answered all questions The patient has been examined within 24 hours of the surgical procedure. The History & Physical has been completed within 30 days and I have reviewed it.: Yes Section B - Complete if H&P > 30 days Chief Complaint: Carpal tunnel syndrome, right upper limb Allergies: Allergies Allergy/AdvReac Type Severity Reaction Status Date / Time cinnamon Allergy Severe Swelling Verified 03/21/25 13:10 Penicillins Allergy Mild RASH Verified 03/21/25 13:10 lisinopril AdvReac Intermediate Cough Verified 03/21/25 13:10 cockaroach Allergy Unknown Uncoded 03/21/25 13:10 Plan Diagnosis/Plan: Unchanged I have reviewed the history and physical and performed a pertinent physical examination on my patient. No changes have occurred unless specified. Time Spent With Patient Time: Total time managing care of this patient today ____ minutes.
--- NOTE | 2025-04-04 14:37 | P.OP_ITS ---
Operative Note Operative Note Date of Service: 04/04/25 Narrative: Preop diagnosis: 1. Right Carpal tunnel syndrome Postop diagnosis: same Procedure: 1. Right Carpal tunnel release Surgeon: Keely Kennedy MD Counselor Marriage And Family: None Anesthesia: local block using 1% lidocaine with epinephrine Findings: Thickened transverse carpal ligament. EBL: Less than 5 mL Specimens: None Complications: None Disposition: Brought to recovery room in stable condition Plan: Follow-up for 10-14 days for wound check and suture removal Indications: The patient is 59 years old, with right carpal tunnel syndrome that has been unresponsive to nonoperative management. The risks and benefits of operative treatment including but not limited to risk of damage to blood vessels, nerves, tendons, infection, persistent pain, persistent symptoms, or possible need for additional surgery were discussed with the patient and the patient wishes to proceed with surgery. Procedure: Once consent was obtained a local block was performed using a combination of 1% lidocaine with epinephrine. The patient was then brought back to the operating suite and placed on the operative table in supine position. The right upper extremity was prepped and draped in a standard surgical fashion. Once assured that we had a good block, a 2.0 cm longitudinal incision was made centered over the carpal tunnel. The incision was made through the skin to the subcutaneous tissues using a #15 blade. Dissection was made down to the level of the transverse carpal ligament with care being taken to protect the palmar cutaneous nerve. Once the transverse carpal ligament was clearly visualized, a longitudinal incision was made in the transverse carpal ligament 1st using a #15 blade, then using tenotomy scissors under direct visualization. Care was taken to look for and protect the motor branch of the median nerve when seen in this area. Once satisfied with our carpal tunnel release the wound was copiously irrigated with normal saline and hemostasis was obtained with a brief period of local pressure. The skin edges were reapproximated with some 5.0 nylon suture material and a sterile dressing was applied. The patient appears to have tolerated the procedure well and with no complic ations. All digits were well vascularized at the conclusion of the case.
[2025-04-04 15:17] VITALS: BP 114/61; PULSE 55; RESP 20; O2SAT 97
== END 2025-04-04 15:17 | disposition home or self-care (01) ==
PROVIDERS: PCP Student in an Organized Health Care Education/Training Program; Visit Provider Orthopaedic Surgery
PROC: (CPT 64721; principal; 2025-04-04 15:10)
DX: G56.01 Carpal tunnel syndrome, right upper limb (principal); E11.9 Type 2 diabetes mellitus without complications; J45.909 Unspecified asthma, uncomplicated; I10 Essential (primary) hypertension; Q25.1 Coarctation of aorta; Z95.5 Presence of coronary angioplasty implant and graft; R42 Dizziness and giddiness; Z90.2 Acquired absence of lung [part of]; Z86.14 Personal history of Methicillin resistant Staphylococcus aureus infection; Z79.84 Long term (current) use of oral hypoglycemic drugs; Z79.899 Other long term (current) drug therapy; Z88.0 Allergy status to penicillin; Z88.8 Allergy status to other drugs, medicaments and biological substances; Z87.891 Personal history of nicotine dependence
CPT/HCPCS: 64721; J0165; J2003

== ENCOUNTER → 2025-04-04 12:53 | Outpatient (BNV) | payer MEDICARE, MEDICAID, SELFPAY | PROVIDERS: PCP Student in an Organized Health Care Education/Training Program; Visit Provider Orthopaedic Surgery | DX: G56.01 Carpal tunnel syndrome, right upper limb (principal) | CPT/HCPCS: 64721 ==